=== PATIENT | male | born 1935 | race Two or more races ===

== ENCOUNTER 2019-07-04 00:45 | Inpatient (IN) | payer MEDICARE, MEDICAID ==
[~2019-07-04] VITALS: Ht 167.6 cm; Wt 83.7 kg
[2019-07-04 00:48] VITALS: BP 84/48
--- NOTE | 2019-07-04 00:48 | NUR ---
ED Nurse Note: Patient brought in by ambulance from [facility] with complaints of resppiratory distress. patient is on non rebrether upon arrival. RT at bedside.n
[2019-07-04] MEDS ORDERED: ASCORBIC ACID500 MG ORAL (00:57)
[2019-07-04] MEDS ORDERED: ZOFRAN4 M3 ORAL (01:03)
[2019-07-04] MEDS ORDERED: GERI-LANTA LIQ355 ML PO (01:03)
[2019-07-04] MEDS ORDERED: BISACODYL5 MG ORAL (01:03)
[2019-07-04] MEDS ORDERED: MILK OF MA400 MG/51 ORAL (01:03)
[2019-07-04] MEDS ORDERED: DUONEB 0.5-3(2.53 ML HHN (01:03)
[2019-07-04] MEDS ORDERED: ADULT WAL-100 MG/5 M ORAL (01:03)
--- NOTE | 2019-07-04 01:09 | Emergency Room Report ---
History of Present Illness General Chief Complaint: Dyspnea/Respdistress Source: Medical Record, EMS Present Illness HPI This is an 83-year-old male [facility]. Presents with chief complaint of respiratory distress. He has a past medical history of Parkinson, diabetes, respiratory failure, pneumonia, he has a feeding tube. intermediate called 911 because of respiratory distress. EMS said oxygenation of was in the 80 percentile on room air. Unable any other history from this patient. No reported fever. Patient does have a cough. Denies any other complaint. History is limited because he is nonverbal. History is through the jail note. Allergies: Coded Allergies: PENICILLINS (Verified Allergy, Unknown, 07/04/19) Patient History Past Medical History: see triage record, old chart reviewed, DM, pneumonia Past Surgical History: other Pertinent Family History: none Social History: Denies: smoking Immunizations: other Reviewed Nursing Documentation: PMH: Agreed; PSxH: Agreed Nursing Documentation-PMH Hx Hypertension: Yes Hx Diabetes: Yes - type 2 Review of Systems Respiratory: Reports: shortness of breath All Other Systems: limited - History limited because of his condition Physical Exam Vital Signs Date Time Temp Pulse Resp B/P (MAP) Pulse Ox O2 Delivery O2 Flow Rate FiO2 07/04/19 00:48 106 26 84/48 (60) 94 Non-Rebreather 15.0 Vitals with hypotension, hypoxia, fever Sp02 EP Interpretation: reviewed, abnormal General Appearance: moderate distress, lethargic, Chronically Ill Head: normocephalic, atraumatic Eyes: bilateral eye PERRL, bilateral eye EOMI ENT: dry mucus membranes Neck: other - Neck is stiff from degenerative changes Respiratory: chest non-tender, respiratory distress, decreased breath sounds, accessory muscle use, rales, rhonchi Cardiovascular #1: regular rate, rhythm, no murmur Gastrointestinal: normal bowel sounds, non tender, no mass, no organomegaly, no bruit, non-distended Musculoskeletal: other - Contracted Psychiatric: other Skin: no rash Procedures Critical Care Time Critical Care Time Critical care is mandated in this patient who presented with sepsis and respiratory distress. Patient require my urgent intervention to attenuate the risks of metabolic collapse which may lead to cardiovascular collapse and . Critical care time is 35 minutes excluding any reportable procedure. Critical care time included evaluation, multiple reevaluation, looking at old charts, interpreting laboratory and diagnostic data, discussing case with patient and family and consultants, and charting. Medical Decision Making Diagnostic Impression: Primary Impression: Sepsis Qualified Codes: A41.9 - Sepsis, unspecified organism; R65.20 - Severe sepsis without septic shock; J96.01 - Acute respiratory failure with hypoxia Additional Impressions: UTI (urinary tract infection) Qualified Codes: N30.00 - Acute cystitis without hematuria Respiratory failure with hypoxia Qualified Codes: J96.01 - Acute respiratory failure with hypoxia Anemia Qualified Codes: D64.9 - Anemia, unspecified CARA (acute kidney injury) Proteinuria Qualified Codes: R80.9 - Proteinuria, unspecified ER Course Patient came in with sepsis and source appear to be from his urine. He was hypoxic and has very rhonchorous respiration. He may have a pneumonia that has not "blossomed" because of his dehydration. Antibiotics given to cover for HCAP. Patient improved greatly with IV fluid and antibiotics. Will admit for further work-up. I contacted Dr. Woods for admission. EKG Diagnostic Results Rate: tachycardiac Rhythm: NSR ST Segments: other - NSST changes Rhythm Strip Diag. Results EP Interpretation: yes Rate: 100 Rhythm: NSR, no PVC's, no ectopy Chest X-Ray Diagnostic Results Chest X-Ray Diagnostic Results : Chest X-Ray Ordered: Yes # of Views/Limited/Complete: 1 View Indication: Shortness of Breath EP Interpretation: Yes Interpretation: no consolidation, no effusion, no pneumothorax, no acute cardiopulmonary disease Impression: No acute disease Electronically Signed by: Nasir Al MD Last Vital Signs Date Time Temp Pulse Resp B/P (MAP) Pulse Ox O2 Delivery O2 Flow Rate FiO2 07/04/19 00:48 106 26 84/48 (60) 94 Non-Rebreather 15.0 Status: improved Disposition: ADMITTED INPATIENT Condition: Serious Nasir Al MD Jul 04, 2019 01:09
[2019-07-04] MEDS ORDERED: Acetaminophen 650 MG SUPP RECTAL ONE (01:15)
[2019-07-04 01:30] LABS: APPEARANCE,URINE SLIGHTLY CLOUDY; BILIRUBIN, URINE NEGATIVE (NEGATIVE); GLUCOSE, URINE (UA) NEGATIVE (NEGATIVE); KETONES,URINE 1+ (NEGATIVE); LEUKOCYTE ESTERASE ,URINE 2+ (NEGATIVE); NITRITE,URINE NEGATIVE (NEGATIVE); PH,URINE 5 (4.5-8.0); PROTEIN,URINE 2+ (NEGATIVE); UROBILINOGEN,URINE NORMAL MG/DL (0.0-1.0)
[2019-07-04 01:30] LABS: HEMOGLOBIN 11.7 G/DL (14.2-18.0); MEAN CORPUSCULAR VOLUME 85 FL (80-99); PLATELET COUNT 235 K/UL (150-450); RED BLOOD COUNT 4.12 M/UL (4.70-6.10); RED CELL DISTRIBUTION WIDTH 13.8 % (11.6-14.8); WHITE BLOOD COUNT 10.6 K/UL (4.8-10.8)
[2019-07-04 01:32] LABS: COLOR,URINE YELLOW
[2019-07-04] MEDS ORDERED: Cefepime HCl 1 GM in D5W 55 ML IVPB ONE (01:45)
[2019-07-04 01:51] LABS: ALANINE AMINOTRANSFERASE 59 U/L (12-78); ALBUMIN 3.4 G/DL (3.4-5.0); ALBUMIN/GLOBULIN RATIO 0.8 (1.0-2.7); ALKALINE PHOSPHATASE 84 U/L (46-116); ANION GAP 10 mmol/L (5-15); ASPARTATE AMINO TRANSFERASE 46 U/L (15-37); BILIRUBIN,TOTAL 0.4 MG/DL (0.2-1.0); BLOOD UREA NITROGEN 54 mg/dL (7-18); CALCIUM 8.2 MG/DL (8.5-10.1); CARBON DIOXIDE 26 MMOL/L (21-32); CHLORIDE 108 MMOL/L (98-107); CKMB 0.6 NG/ML (0.0-3.6); CREATINE KINASE 160 U/L (26-308); CREATININE 1.6 MG/DL (0.55-1.30); POTASSIUM 5.9 MMOL/L (3.5-5.1); SODIUM 144 MMOL/L (136-145)
--- NOTE | 2019-07-04 02:00 | NUR ---
ED Nurse Note: Patient tolerated non rebreather mask, IV start at right forearm and left EJ, Blood drawn by ERMD at femoral site. Patient tolerated nixon placement. Flu swabs, nasal and rectal swabs collected and sent to lab. Patient is satting at 100% on no rebreather. will continue to monitor.
[2019-07-04 02:39] LABS: INR 1.1 (0.9-1.1)
--- NOTE | 2019-07-04 02:43 | NUR ---
ED Nurse Note: Called and rendered report to Anastasiya HERMAN.
--- NOTE | 2019-07-04 03:25 | NUR ---
ED Nurse Note: confirmed with EVS that bed is clean. patient transported to floor b sewing techniques demonstrator and RN.
--- NOTE | 2019-07-04 03:50 | NUR ---
NURSE NOTES: received pt from JUVE Diaz RN., pt is awake and AOx 3. pt is in non-breather mask. pt states no pain at this moment. pt threw up x1 brown color, and BM large x2. pt is on Juan Cath intact, clean, and patent, draining well with gravity. IV site Right FA 22G and Left EJ 20G intact, clean, and patent. pt has Gtube, Gtube site is intact clean, and patent as well. call light within reach. VS: BP128/82 Temp 97.9 O2sat 91% with non breather mask, RR 36 HR 95 personnel monitor is on. bed at the lowest position, alarmed, and locked. will continue to monitor pt with plan of care.
--- NOTE | 2019-07-04 04:09 | NUR ---
NURSE NOTES: left voice mail to Dr. Woods regarding obtaining the admission order. will wait for call back.
[2019-07-04] MEDS ORDERED: Albuterol/Ipratropium 3ml neb HHN PRN (04:15)
--- NOTE | 2019-07-04 04:39 | NUR ---
NURSE NOTES: left 2nd voice mail to Dr. Woods regarding admission order. will wait for call back.
[2019-07-04 05:49] VITALS: BP 128/70
--- NOTE | 2019-07-04 06:30 | NUR ---
NURSE NOTES: Dr. Woods aware pt had brown vomitting x2. no new order at this moment.
--- NOTE | 2019-07-04 07:30 | NUR ---
HAND-OFF: Report given to Loreta HERMAN.
--- NOTE | 2019-07-04 07:30 | NUR ---
NURSE NOTES: unable to upload sacral and left heel picture due to IT problem at this moment. saved picture in camera. endorsed to morning nurse.
--- NOTE | 2019-07-04 07:31 | NUR ---
NURSE NOTES: Received report from Nani Gray RN. Observed patient in bed, asleep, opens eyes spontaneously. On Venturi Mask, no respiratory distress noted. RT Ashley notified to place patient in BiPAP STAT as ordered. Left EJ IV intact and patent. Juan catheter noted, draining to gravity. Safety precautions in place, bed locked, alarmed and in lowest position, side rails up x3, and call light left within reach. at bedside, instructed to call for assistance, verbalized understanding. Will follow up on admitting orders and will continue plan of care.
--- NOTE | 2019-07-04 07:45 | NUR ---
NURSE NOTES: RT at bedside for BiPAP placement. Will continue to monitor patient.
[2019-07-04 08:00] VITALS: BP 113/61
[2019-07-04] MEDS ORDERED: Vancomycin 1.5gm/NS Premix q24h IVPB SCH (10:00)
--- NOTE | 2019-07-04 10:30 | NUR ---
NURSE NOTES: Wound photos taken with wound care nurse per protocol. Attempted to upload, unable. Charge nurse and IT notified and made aware.
--- NOTE | 2019-07-04 10:36 | Diagnostic Imaging Report ---
Indication: Shortness of breath Technique: One view of the chest Comparison: none Findings: There is some atelectasis at the right lung base and in the right perihilar region. There is minimal bronchial wall thickening noted. The lungs and pleural spaces are otherwise clear. Heart size is upper limits normal. The aorta is calcified Impression: No acute process
--- NOTE | 2019-07-04 10:37 | NUR ---
CASE MANAGEMENT:INITIAL REVIEW 83 YR OLD MALE BIBA FROM [facility] CC;SHORTNESS OF BREATH. RESPIRATORY DISTRESS SI;SEPSIS. RESP FAILURE W/HYPOXIA. PROTEINURIA. UTI. CARA. 101.8 106 26 84/48 92% BiPAP FIO2 @ 50% K+ 5.9 CL 108 BUN 54 CR 1.6 CA 8.2 AST 46 UA+ - PROTIEN, KETONES, BLOOD. LEUKOCYTE, RBC, WBC. BACTERIA CXR - no consolidation, no effusion, no pneumothorax, no acute cardiopulmonary disease IS;IVF NS BOLUS X1 ACETAMINOPHEN SUPP RECTAL X1 CEFEPIME IV X1 LEVAQUIN IV X1 ADMITTED TO SDU SDU STATUS DCP; FROM [facility]
--- NOTE | 2019-07-04 11:11 | NUR ---
RD ASSESSMENT & RECOMMENDATIONS SEE CARE ACTIVITY FOR COMPLETE ASSESSMENT DAILY ESTIMATED NEEDS: Needs based on Pulmonary, wound/ 67.7kg 25-30 kcals/kg 1895-8078 total kcals 1.25-1.5 g protein/kg 85-102 g total protein 25-30 mL/kg total fluid mLs NUTRITION DIAGNOSIS: * Increased kcal/prot needs R/T wound healing as evidenced by pt admitted w/ sacral and Lt heel wounds, eval pending. 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 CURRENT DIET:NPO PO DIET RECOMMENDATIONS: SURFACE TO AIR WEAPONS OFFICER EVAL PRIOR TO INITIATING DIET -> CCHO MED, LOW NA ENTERAL NUTRITION RECOMMENDATIONS: Glucerna 1.2 @ 60ml/hr x 24 hrs to provide 1440ml, 1728kcal, 86g prot, 1159ml free water * If pt not safe for oral diet and when medically appropriate to feed, initiate GT feeds. * Initiate Glucerna 1.2 @ 20ml/hr x 6 hrs, advance 10ml q 4-6 hrs as tolerated to goal rate. * HOB over 30 degrees * Without IVF, 150ml q 6 hrs ADDITIONAL RECOMMENDATIONS: * Per SNF: HT=67" RM=316dku (As of Jun 10, 2019) * TF rec as above if GT feeds indicated * SURFACE TO AIR WEAPONS OFFICER evaluation prior to PO initiation * Monitor K closely, need for K restriction (either in TF or oral diet) * NISS w/ feeding: h/o DM, elev BGs * Wound healing: once no longer NPO-> add MVI x 1, Vit C 250mg QD -> Dipak BID w/ diet or TF order
--- NOTE | 2019-07-04 11:20 | Diagnostic Imaging Report ---
Indication: Shortness of breath Technique: One view of the chest Comparison: 07/04/2019 Findings: The heart is upper limits normal in size. The aorta is tortuous and calcified. No definite acute infiltrates, effusions, or congestion. Minimal right basilar and perihilar atelectasis persists Impression: No acute process
[2019-07-04 12:00] VITALS: BP 113/61
--- NOTE | 2019-07-04 12:10 | NUR ---
NURSE NOTES: Dr Lopez present at the unit, ordered STAT VQ scan for patient. Spoke with Timo from nuclear med, states he will order isotope and awaiting for arrival at [address] Lopez notified and made aware; Dr Lopez also ordered patient to be off BiPAP, notified RT Ashley. Will continue to monitor.
--- NOTE | 2019-07-04 12:13 | Consultation ---
History of Present Illness General Date patient seen: Jul 04, 2019 Chief Complaint: Dyspnea/Respdistress Present Illness HPI 83 year old male with hx of DM, Gtube, Parkinson, HTN, bed bound, long-term resident was taken by paramedics to [facility] with CC of acute onset of shortness of breath and hypoxemia. He had loud rhonchi. His CXR was negative for acute infiltrate. He needed to be put on BIPAP to maintain oxygenation. He is transferred to [facility] for further treatment. Allergies: Coded Allergies: PENICILLINS (Verified Allergy, Unknown, 07/04/19) Medication History Scheduled Ascorbic Acid* (Ascorbic Acid*), 500 MG ORAL DAILY, (Reported) Bisacodyl* (Dulcolax*), 10 MG ORAL ONCE, (Reported) Guaifenesin* (Adult Wal-Tussin*), 10 ML ORAL Q6HR, (Reported) Ipratropium/Albuterol Sulfate (DuoNeb 0.5-3(2.5)mg/3ml), 3 ML HHN EVERY 6 HOURS, (Reported) Magnesium Hydroxide* (Milk Of Magnesia*), 30 ML ORAL DAILY, (Reported) Scheduled PRN Ondansetron* (Zofran*), 4 MG ORAL Q8HR PRN for Nausea & Vomiting, (Reported) Miscellaneous Medications Mag Hydrox/Al Hydrox/Simeth (Yuli-Lanta Liquid), 15 ML PO, (Reported) Patient History Healthcare decision maker Resuscitation status Full Code Advanced Directive on File Past Medical/Surgical History Past Medical/Surgical History: (1) Hypertensive heart disease (2) DVT (deep venous thrombosis) (3) BPH (benign prostatic hyperplasia) (4) Diabetes mellitus (5) Parkinson disease (6) Feeding by G-tube Review of Systems All Other Systems: negative except mentioned in HPI Physical Exam General Appearance: cachetic, thin Lines, tubes and drains: peripheral HEENT: normocephalic, atraumatic Neck: non-tender, normal alignment Respiratory/Chest: chest wall non-tender, lungs clear Breasts: no masses Cardiovascular/Chest: normal peripheral pulses, normal rate Abdomen: normal bowel sounds, non tender, hyperactive bowel sounds Genitourinary/Rectal: normal genital exam Extremities: normal range of motion Skin Exam: normal pigmentation Last 24 Hour Vital Signs Date Time Temp Pulse Resp B/P (MAP) Pulse Ox O2 Delivery O2 Flow Rate FiO2 07/04/19 10:32 93 32 94 Facial 50 07/04/19 08:47 92 35 96 Facial 50 07/04/19 08:00 Bi-pap 07/04/19 07:45 88 39 92 Facial 50 07/04/19 07:45 88 21 92 Bi-Pap 50 07/04/19 06:53 81 07/04/19 05:49 97.9 95 20 128/70 (89) 96 07/04/19 04:19 Non-Rebreather 07/04/19 03:30 99.0 106 26 84/48 94 Non-Rebreather 15.0 07/04/19 01:47 99.0 07/04/19 00:48 101.8 106 26 84/48 94 Non-Rebreather 15.0 07/04/19 00:48 106 26 Non-Rebreather 15.0 07/04/19 00:48 106 26 84/48 (60) 94 Non-Rebreather 15.0 Intake and Output 07/03/19 07/04/19 19:00 07:00 Intake Total 1000 ml Output Total 200 ml Balance 800 ml Intake Oral 0 ml IV Total 1000 ml Output Urine Total 200 ml # Bowel Movements 4 Laboratory Tests Test 07/04/19 00:55 07/04/19 01:25 07/04/19 02:18 07/04/19 05:17 White Blood Count 10.6 K/UL (4.8-10.8) Red Blood Count 4.12 M/UL (4.70-6.10) L Hemoglobin 11.7 G/DL (14.2-18.0) L Hematocrit 35.0 % (42.0-52.0) L Mean Corpuscular Volume 85 FL (80-99) Mean Corpuscular Hemoglobin 28.4 PG (27.0-31.0) Mean Corpuscular Hemoglobin Concent 33.4 G/DL (32.0-36.0) Red Cell Distribution Width 13.8 % (11.6-14.8) Platelet Count 235 K/UL (150-450) Mean Platelet Volume 6.7 FL (6.5-10.1) Neutrophils (%) (Auto) % (45.0-75.0) Lymphocytes (%) (Auto) % (20.0-45.0) Monocytes (%) (Auto) % (1.0-10.0) Eosinophils (%) (Auto) % (0.0-3.0) Basophils (%) (Auto) % (0.0-2.0) Sodium Level 144 MMOL/L (136-145) Potassium Level 5.9 MMOL/L (3.5-5.1) H Chloride Level 108 MMOL/L (98-107) H Carbon Dioxide Level 26 MMOL/L (21-32) Anion Gap 10 mmol/L (5-15) Blood Urea Nitrogen 54 mg/dL (7-18) H Creatinine 1.6 MG/DL (0.55-1.30) H Estimat Glomerular Filtration Rate mL/min (>60) Glucose Level 178 MG/DL (74-106) H Lactic Acid Level 1.40 mmol/L (0.4-2.0) Calcium Level 8.2 MG/DL (8.5-10.1) L Total Bilirubin 0.4 MG/DL (0.2-1.0) Aspartate Amino Transf (AST/SGOT) 46 U/L (15-37) H Alanine Aminotransferase (ALT/SGPT) 59 U/L (12-78) Alkaline Phosphatase 84 U/L (46-116) Total Creatine Kinase 160 U/L (26-308) Creatine Kinase MB 0.6 NG/ML (0.0-3.6) Creatine Kinase MB Relative Index 0.3 Troponin I 0.003 ng/mL (0.000-0.056) Total Protein 7.6 G/DL (6.4-8.2) Albumin 3.4 G/DL (3.4-5.0) Globulin 4.2 g/dL Albumin/Globulin Ratio 0.8 (1.0-2.7) L Urine Color Yellow Urine Appearance Slightly cloudy Urine pH 5 (4.5-8.0) Urine Specific [place] 1.020 (1.005-1.035) Urine Protein 2+ (NEGATIVE) H Urine Glucose (UA) Negative (NEGATIVE) Urine Ketones 1+ (NEGATIVE) H Urine Blood 5+ (NEGATIVE) H Urine Nitrite Negative (NEGATIVE) Urine Bilirubin Negative (NEGATIVE) Urine Urobilinogen Normal MG/DL (0.0-1.0) Urine Leukocyte Esterase 2+ (NEGATIVE) H Urine RBC Tntc /HPF (0 - 0) H Urine WBC 5-10 /HPF (0 - 0) H Urine Squamous Epithelial Cells Few /LPF (NONE/OCC) Urine Bacteria Moderate /HPF (NONE) H Prothrombin Time 11.4 SEC (9.30-11.50) Prothromb Time International Ratio 1.1 (0.9-1.1) Activated Partial Thromboplast Time 24 SEC (23-33) Arterial Blood pH 7.239 (7.350-7.450) Arterial Blood Partial Pressure CO2 48.1 mmHg (35.0-45.0) H Arterial Blood Partial Pressure O2 305.9 mmHg (75.0-100.0) H Arterial Blood HCO3 20.1 mmol/L (22.0-26.0) L Arterial Blood Oxygen Saturation 99.2 % (95-100) Arterial Blood Base Excess -7.2 (-2-2) L Phan Test Positive Test 07/04/19 08:50 Arterial Blood pH 7.313 (7.350-7.450) Arterial Blood Partial Pressure CO2 41.1 mmHg (35.0-45.0) Arterial Blood Partial Pressure O2 141.1 mmHg (75.0-100.0) H Arterial Blood HCO3 20.4 mmol/L (22.0-26.0) L Arterial Blood Oxygen Saturation 98.3 % (95-100) Arterial Blood Base Excess -5.5 (-2-2) L Phan Test Positive Microbiology Date/Time Source Procedure Growth Status 07/04/19 01:10 Nasal Nares - Final Complete 07/04/19 01:10 Nasal Nares - Final Complete Height (Feet): 5 Height (Inches): 8.00 Weight (Pounds): 158 Medications Current Medications Medications (Trade) Dose Ordered Sig/Genoveva Route PRN Reason Start Time Stop Time Status Last Admin Dose Admin Acetaminophen (Tylenol) 650 mg Q6H PRN ORAL Mild Pain/Temp > 100.5 07/04/19 07:30 08/03/19 07:29 Albuterol/ Ipratropium (Albuterol/ Ipratropium) 3 ml Q4H PRN HHN Shortness of Breath 07/04/19 04:15 07/09/19 04:14 Cefepime HCl 1 gm/ Dextrose 55 ml @ 110 mls/hr Q24H IVPB 07/04/19 21:00 07/11/19 20:59 Heparin Sodium (Porcine) (Heparin 5000 units/ml) 5,000 units EVERY 8 HOURS SUBQ 07/04/19 14:00 08/03/19 13:59 Metronidazole 100 ml @ 100 mls/hr Q12HR IVPB 07/04/19 09:00 07/11/19 08:59 07/04/19 09:15 Sodium Chloride 1,000 ml @ 75 mls/hr [id number] IV 07/04/19 08:00 08/03/19 07:59 07/04/19 07:50 Vancomycin HCl (Vanco rx to dose) 1 ea DAILY PRN MISC Per rx protocol 07/04/19 09:00 08/03/19 08:59 Assessment/Plan Problem List: (1) Respiratory failure with hypoxia ICD Codes: J96.91 - Respiratory failure, unspecified with hypoxia SNOMED: 06366169173263818 Qualifiers: Qualified Codes: J96.01 - Acute respiratory failure with hypoxia (2) CARA (acute kidney injury) ICD Codes: N17.9 - Acute kidney failure, unspecified SNOMED: 04415283, 5508896 (3) Sepsis ICD Codes: A41.9 - Sepsis, unspecified organism SNOMED: 27509071 Qualifiers: Qualified Codes: A41.9 - Sepsis, unspecified organism; R65.20 - Severe sepsis without septic shock; J96.01 - Acute respiratory failure with hypoxia (4) Anemia ICD Codes: D64.9 - Anemia, unspecified SNOMED: 394488652 Qualifiers: Qualified Codes: D64.9 - Anemia, unspecified (5) Hypertensive heart disease ICD Codes: I11.9 - Hypertensive heart disease without heart failure SNOMED: 36196800 (6) BPH (benign prostatic hyperplasia) ICD Codes: N40.0 - Benign prostatic hyperplasia without lower urinary tract symptoms SNOMED: 917905256 (7) DVT (deep venous thrombosis) ICD Codes: I82.409 - Acute embolism and thrombosis of unspecified deep veins of unspecified lower extremity SNOMED: 228790590 (8) Parkinson disease ICD Codes: G20 - Parkinson's disease SNOMED: 26132719 (9) Diabetes mellitus ICD Codes: E11.9 - Type 2 diabetes mellitus without complications SNOMED: 49397110 (10) Feeding by G-tube ICD Codes: Z93.1 - Gastrostomy status SNOMED: 847276604, 103890381, 620848190 Assessment/Plan: titrate bipap, titrate fio2 to sat of 92% V/q Scan to rule out PE, since pt was in respiratory failure and cxr was negative. pt has azotemia and can't have contrast now. hebert culture, including sputum, ID evaluation. iv abx Gtube site care diabetic feeding, sliding scale anemia w/u and renal w/u including renal US dvt prophylaxis pt has a hx of dvt, will get doppler of legs to see if they still exist. pt with advanced age and multiple underlying medical problems would greatly benefit from comfort and end of life care. Kathryn Lopez MD Jul 04, 2019 12:13
[2019-07-04] MEDS ORDERED: Promethazine/Codeine 5ml UD ORAL PRN (12:15)
--- NOTE | 2019-07-04 12:30 | NUR ---
NURSE NOTES: Patient was placed on Venturi Mask 12L, FiO2 50%. Patient is saturating 100%, no distress noted at this time. Will continue to monitor.
[2019-07-04 13:03] LABS: HEMATOCRIT 35.5 % (42.0-52.0); HEMOGLOBIN 11.2 G/DL (14.2-18.0); MEAN CORPUSCULAR VOLUME 88 FL (80-99); PLATELET COUNT 191 K/UL (150-450); RED BLOOD COUNT 4.04 M/UL (4.70-6.10); RED CELL DISTRIBUTION WIDTH 14.4 % (11.6-14.8); WHITE BLOOD COUNT 8.2 K/UL (4.8-10.8)
[2019-07-04 13:26] LABS: ALANINE AMINOTRANSFERASE 46 U/L (12-78); ALBUMIN 2.9 G/DL (3.4-5.0); ALBUMIN/GLOBULIN RATIO 0.7 (1.0-2.7); ALKALINE PHOSPHATASE 65 U/L (46-116); ANION GAP 9 mmol/L (5-15); ASPARTATE AMINO TRANSFERASE 20 U/L (15-37); BILIRUBIN,TOTAL 0.3 MG/DL (0.2-1.0); BLOOD UREA NITROGEN 49 mg/dL (7-18); CALCIUM 7.5 MG/DL (8.5-10.1); CARBON DIOXIDE 23 MMOL/L (21-32); CHLORIDE 118 MMOL/L (98-107); CREATINE KINASE 69 U/L (26-308); CREATININE 1.3 MG/DL (0.55-1.30); POTASSIUM 5.1 MMOL/L (3.5-5.1); SODIUM 150 MMOL/L (136-145)
--- NOTE | 2019-07-04 13:33 | NUR ---
RADIOLOGY DEPT., CHEST X-RAY DONE.-P.DYE
--- NOTE | 2019-07-04 14:13 | Consultation ---
History of Present Illness General Date patient seen: Jul 04, 2019 Chief Complaint: Dyspnea/Respdistress Present Illness HPI 83 y/o M with hx of Dm2, dysphagia s/p GT, PNA, parkinson disease, HTN, bed bound, NH resident presented to ED On 07/04 with acute SOB,cough and hypoxia (80 % at RA) requiring Bipap. No reported fever Allergies: Coded Allergies: PENICILLINS (Verified Allergy, Unknown, 07/04/19) Medication History Scheduled Ascorbic Acid* (Ascorbic Acid*), 500 MG ORAL DAILY, (Reported) Bisacodyl* (Dulcolax*), 10 MG ORAL ONCE, (Reported) Guaifenesin* (Adult Wal-Tussin*), 10 ML ORAL Q6HR, (Reported) Ipratropium/Albuterol Sulfate (DuoNeb 0.5-3(2.5)mg/3ml), 3 ML HHN EVERY 6 HOURS, (Reported) Magnesium Hydroxide* (Milk Of Magnesia*), 30 ML ORAL DAILY, (Reported) Scheduled PRN Ondansetron* (Zofran*), 4 MG ORAL Q8HR PRN for Nausea & Vomiting, (Reported) Miscellaneous Medications Mag Hydrox/Al Hydrox/Simeth (Yuli-Lanta Liquid), 15 ML PO, (Reported) Patient History Healthcare decision maker Resuscitation status Full Code Advanced Directive on File Patient History Narrative Pmhx: as above Shx: Denies: smoking Fhx: non contributory Physical Exam Physical Exam Narrative General Appearance: cachetic, thin Lines, tubes and drains: peripheral HEENT: normocephalic, atraumatic Neck: non-tender, normal alignment Respiratory/Chest: chest wall non-tender, lungs clear Breasts: no masses Cardiovascular/Chest: normal peripheral pulses, normal rate Abdomen: normal bowel sounds, non tender, hyperactive bowel sounds Genitourinary/Rectal: normal genital exam Extremities: normal range of motion Skin Exam: normal pigmentation Last 24 Hour Vital Signs Date Time Temp Pulse Resp B/P (MAP) Pulse Ox O2 Delivery O2 Flow Rate FiO2 07/04/19 12:00 40 07/04/19 12:00 Bi-pap 07/04/19 12:00 99.3 60 21 113/61 (78) 99 07/04/19 10:32 93 32 94 Facial 50 07/04/19 08:47 92 35 96 Facial 50 07/04/19 08:00 Bi-pap 07/04/19 08:00 99.4 82 12 113/61 (78) 96 07/04/19 08:00 40 07/04/19 07:45 88 39 92 Facial 50 07/04/19 07:45 88 21 92 Bi-Pap 50 07/04/19 06:53 81 07/04/19 05:49 97.9 95 20 128/70 (89) 96 07/04/19 04:19 Non-Rebreather 07/04/19 03:30 99.0 106 26 84/48 94 Non-Rebreather 15.0 07/04/19 01:47 99.0 07/04/19 00:48 101.8 106 26 84/48 94 Non-Rebreather 15.0 07/04/19 00:48 106 26 Non-Rebreather 15.0 07/04/19 00:48 106 26 84/48 (60) 94 Non-Rebreather 15.0 Intake and Output 07/03/19 07/04/19 19:00 07:00 Intake Total 1000 ml Output Total 200 ml Balance 800 ml Intake Oral 0 ml IV Total 1000 ml Output Urine Total 200 ml # Bowel Movements 4 Laboratory Tests Test 07/04/19 00:55 07/04/19 01:25 07/04/19 02:18 07/04/19 05:17 White Blood Count 10.6 K/UL (4.8-10.8) Red Blood Count 4.12 M/UL (4.70-6.10) L Hemoglobin 11.7 G/DL (14.2-18.0) L Hematocrit 35.0 % (42.0-52.0) L Mean Corpuscular Volume 85 FL (80-99) Mean Corpuscular Hemoglobin 28.4 PG (27.0-31.0) Mean Corpuscular Hemoglobin Concent 33.4 G/DL (32.0-36.0) Red Cell Distribution Width 13.8 % (11.6-14.8) Platelet Count 235 K/UL (150-450) Mean Platelet Volume 6.7 FL (6.5-10.1) Neutrophils (%) (Auto) % (45.0-75.0) Lymphocytes (%) (Auto) % (20.0-45.0) Monocytes (%) (Auto) % (1.0-10.0) Eosinophils (%) (Auto) % (0.0-3.0) Basophils (%) (Auto) % (0.0-2.0) Sodium Level 144 MMOL/L (136-145) Potassium Level 5.9 MMOL/L (3.5-5.1) H Chloride Level 108 MMOL/L (98-107) H Carbon Dioxide Level 26 MMOL/L (21-32) Anion Gap 10 mmol/L (5-15) Blood Urea Nitrogen 54 mg/dL (7-18) H Creatinine 1.6 MG/DL (0.55-1.30) H Estimat Glomerular Filtration Rate mL/min (>60) Glucose Level 178 MG/DL (74-106) H Lactic Acid Level 1.40 mmol/L (0.4-2.0) Calcium Level 8.2 MG/DL (8.5-10.1) L Total Bilirubin 0.4 MG/DL (0.2-1.0) Aspartate Amino Transf (AST/SGOT) 46 U/L (15-37) H Alanine Aminotransferase (ALT/SGPT) 59 U/L (12-78) Alkaline Phosphatase 84 U/L (46-116) Total Creatine Kinase 160 U/L (26-308) Creatine Kinase MB 0.6 NG/ML (0.0-3.6) Creatine Kinase MB Relative Index 0.3 Troponin I 0.003 ng/mL (0.000-0.056) Total Protein 7.6 G/DL (6.4-8.2) Albumin 3.4 G/DL (3.4-5.0) Globulin 4.2 g/dL Albumin/Globulin Ratio 0.8 (1.0-2.7) L Urine Color Yellow Urine Appearance Slightly cloudy Urine pH 5 (4.5-8.0) Urine Specific [place] 1.020 (1.005-1.035) Urine Protein 2+ (NEGATIVE) H Urine Glucose (UA) Negative (NEGATIVE) Urine Ketones 1+ (NEGATIVE) H Urine Blood 5+ (NEGATIVE) H Urine Nitrite Negative (NEGATIVE) Urine Bilirubin Negative (NEGATIVE) Urine Urobilinogen Normal MG/DL (0.0-1.0) Urine Leukocyte Esterase 2+ (NEGATIVE) H Urine RBC Tntc /HPF (0 - 0) H Urine WBC 5-10 /HPF (0 - 0) H Urine Squamous Epithelial Cells Few /LPF (NONE/OCC) Urine Bacteria Moderate /HPF (NONE) H Prothrombin Time 11.4 SEC (9.30-11.50) Prothromb Time International Ratio 1.1 (0.9-1.1) Activated Partial Thromboplast Time 24 SEC (23-33) Arterial Blood pH 7.239 (7.350-7.450) Arterial Blood Partial Pressure CO2 48.1 mmHg (35.0-45.0) H Arterial Blood Partial Pressure O2 305.9 mmHg (75.0-100.0) H Arterial Blood HCO3 20.1 mmol/L (22.0-26.0) L Arterial Blood Oxygen Saturation 99.2 % (95-100) Arterial Blood Base Excess -7.2 (-2-2) L Phan Test Positive Test 07/04/19 08:50 07/04/19 12:45 Arterial Blood pH 7.313 (7.350-7.450) Arterial Blood Partial Pressure CO2 41.1 mmHg (35.0-45.0) Arterial Blood Partial Pressure O2 141.1 mmHg (75.0-100.0) H Arterial Blood HCO3 20.4 mmol/L (22.0-26.0) L Arterial Blood Oxygen Saturation 98.3 % (95-100) Arterial Blood Base Excess -5.5 (-2-2) L Phan Test Positive White Blood Count 8.2 K/UL (4.8-10.8) Red Blood Count 4.04 M/UL (4.70-6.10) L Hemoglobin 11.2 G/DL (14.2-18.0) L Hematocrit 35.5 % (42.0-52.0) L Mean Corpuscular Volume 88 FL (80-99) Mean Corpuscular Hemoglobin 27.8 PG (27.0-31.0) Mean Corpuscular Hemoglobin Concent 31.6 G/DL (32.0-36.0) L Red Cell Distribution Width 14.4 % (11.6-14.8) Platelet Count 191 K/UL (150-450) Mean Platelet Volume 6.8 FL (6.5-10.1) Neutrophils (%) (Auto) % (45.0-75.0) Lymphocytes (%) (Auto) % (20.0-45.0) Monocytes (%) (Auto) % (1.0-10.0) Eosinophils (%) (Auto) % (0.0-3.0) Basophils (%) (Auto) % (0.0-2.0) Differential Total Cells Counted 100 Neutrophils % (Manual) 88 % (45-75) H Lymphocytes % (Manual) 6 % (20-45) L Monocytes % (Manual) 6 % (1-10) Eosinophils % (Manual) 0 % (0-3) Basophils % (Manual) 0 % (0-2) Band Neutrophils 0 % (0-8) Platelet Estimate Adequate Platelet Morphology Normal Red Blood Cell Morphology Normal Sodium Level 150 MMOL/L (136-145) H Potassium Level 5.1 MMOL/L (3.5-5.1) Chloride Level 118 MMOL/L (98-107) H Carbon Dioxide Level 23 MMOL/L (21-32) Anion Gap 9 mmol/L (5-15) Blood Urea Nitrogen 49 mg/dL (7-18) H Creatinine 1.3 MG/DL (0.55-1.30) Estimat Glomerular Filtration Rate mL/min (>60) Glucose Level 118 MG/DL (74-106) H Uric Acid 7.0 MG/DL (2.6-7.2) Calcium Level 7.5 MG/DL (8.5-10.1) L Total Bilirubin 0.3 MG/DL (0.2-1.0) Aspartate Amino Transf (AST/SGOT) 20 U/L (15-37) Alanine Aminotransferase (ALT/SGPT) 46 U/L (12-78) Alkaline Phosphatase 65 U/L (46-116) Total Creatine Kinase 69 U/L (26-308) Total Protein 7.1 G/DL (6.4-8.2) Albumin 2.9 G/DL (3.4-5.0) L Globulin 4.2 g/dL Albumin/Globulin Ratio 0.7 (1.0-2.7) L Microbiology Date/Time Source Procedure Growth Status 07/04/19 01:10 Nasal Nares - Final Complete 07/04/19 01:10 Nasal Nares - Final Complete Height (Feet): 5 Height (Inches): 8.00 Weight (Pounds): 158 Medications Current Medications Medications (Trade) Dose Ordered Sig/Genoveva Route PRN Reason Start Time Stop Time Status Last Admin Dose Admin Acetaminophen (Tylenol) 650 mg Q6H PRN ORAL Mild Pain/Temp > 100.5 07/04/19 07:30 08/03/19 07:29 Albuterol/ Ipratropium (Albuterol/ Ipratropium) 3 ml Q4H PRN HHN Shortness of Breath 07/04/19 04:15 07/09/19 04:14 Cefepime HCl 1 gm/ Dextrose 55 ml @ 110 mls/hr Q24H IVPB 07/04/19 21:00 07/11/19 20:59 Heparin Sodium (Porcine) (Heparin 5000 units/ml) 5,000 units EVERY 8 HOURS SUBQ 07/04/19 14:00 08/03/19 13:59 Metronidazole 100 ml @ 100 mls/hr Q12HR IVPB 07/04/19 09:00 07/11/19 08:59 07/04/19 09:15 Promethazine HCl/ Codeine (Phenergan with Codeine) 5 ml Q4H PRN ORAL For Cough 07/04/19 12:15 08/03/19 12:14 Sodium Chloride 1,000 ml @ 150 mls/hr Q6H40M IV 07/04/19 12:11 08/03/19 12:10 07/04/19 12:36 Vancomycin HCl (Vanco rx to dose) 1 ea DAILY PRN MISC Per rx protocol 07/04/19 09:00 08/03/19 08:59 Assessment/Plan Assessment/Plan: Abx: IV Vancomycin 07/04- Cefepime 07/04- Levaquin x1 07/04 Assessment: Sepsis UTI Acute hypoxic respiratory failure ?Early pneumonia -u/a wbc 5-10, nit neg, leuk +2; ucx p -Bcx p -sp cx p -CXR: No acute process -influenza sc neg Fever No leukocytosis CARA, improving Dm2 dysphagia s/p GT hx of PNA parkinson disease HTN bed bound NH resident Plan: -Continue empiric IV Vancomycin and Cefepime #1 pending cx -f/u cx -Monitor CBC/CMP, temperatures -aspiration precautions -GT care Thank you for this consultation. Will continue to follow along with you. Discussed with Mirian Bates M.D. Jul 04, 2019 14:13
--- NOTE | 2019-07-04 15:27 | NUR ---
NM Lung V/Q Scan complete.
[2019-07-04] MEDS: Heparin 5000 units/ml inj SUBQ SCH ×2 (15:30→23:12)
--- NOTE | 2019-07-04 15:52 | Diagnostic Imaging Report ---
Indications: Shortness of breath Technique: IV administration 5 mCi 99m technetium macroaggregated albumin. Images obtained over the lungs in multiple projections. Previously, patient inhaled 40 mCi aerosolized 99M technetium DTPA. Images obtained over the lungs in multiple projections Comparison: Reference made to chest radiograph 07/04/2019 Findings: Aerosol images demonstrate heterogeneous aerosol tracer distribution throughout both lungs. Perfusion images are also heterogeneous, demonstrates an extent as the aerosol images and there are no areas of aerosol perfusion mismatch. Impression: Findings are deemed low probability for pulmonary embolus
[2019-07-04 16:00] VITALS: BP 131/86
--- NOTE | 2019-07-04 16:41 | NUR ---
NURSE NOTES:WOUND CARE NOTES:Pt presented on admission with Resolving Full thickness pressure injury(L)3.6cm x (W)1.5cm. Base of wound has 25% slough ,75% pink granulation. Borders are macerated. Hyperpigmentation periwound.No odor or exudate noted. Elongated red welt noted to L hip (L) 8cm. Both heels are boggy with non-blanching erythema. No other skin concerns noted. Tx.Plan: Cleanse Sacral wound with Saline. Apply Therahoney. Apply Moisture Barrier Paste periwound. Cover with Optifoam drsg. Change every 3 days and prn. Apply Cavilon Skin Barrier to L hip. Cover with Optifoam drsg. Change every 7 days and prn. Apply Cavilon Skin Barrier to both heels. Cover each heel with Optifoam drsg. Change every 7 days and prn. Reposition at least every 2hours or as tolerated. Off-load heels with pillow.
[2019-07-04 17:22] LABS: APPEARANCE,URINE VERY CLOUDY; BILIRUBIN, URINE NEGATIVE (NEGATIVE); COLOR,URINE PALE YELLOW; GLUCOSE, URINE (UA) NEGATIVE (NEGATIVE); KETONES,URINE NEGATIVE (NEGATIVE); LEUKOCYTE ESTERASE ,URINE 1+ (NEGATIVE); NITRITE,URINE NEGATIVE (NEGATIVE); PH,URINE 5 (4.5-8.0); PROTEIN,URINE 2+ (NEGATIVE); UROBILINOGEN,URINE NORMAL MG/DL (0.0-1.0)
--- NOTE | 2019-07-04 18:10 | History & Physical ---
History and Physical History & Physicial Dictated for Int Med-Dr Woods no. [id number]. Shukri Glover MD Jul 04, 2019 18:10
--- NOTE | 2019-07-04 19:15 | NUR ---
HAND-OFF: Report given to Buffy Puente RN. Endorsed plan of care. Patient in stable condition.
--- NOTE | 2019-07-04 19:20 | NUR ---
NURSE NOTES: Received report from CLIFF RN using SBAR. Patient is awake.oriented to person and place. on venturi mask 12 L with no respiratory distress noted. o2 saturation is 95-99%. VS stable. Afebrile. SR on monitor. Denies any pain at this time. Juan cath in place with dark kristen urine draining well. LEJ IV intact with 1/2 NS at 150cc/hr running.patient is congestive and RT performed oral deep suctions .oral care done.will continue to monitor.
[2019-07-04 20:00] VITALS: BP 135/70
[2019-07-04] MEDS ORDERED: Cefepime HCl 1 GM in D5W 55 ML IVPB SCH (21:00)
[2019-07-05] VITALS (23 sets, daily range): BP systolic 52–145; BP diastolic 17–89
--- NOTE | 2019-07-05 00:01 | History and Physical Report ---
DATE OF ADMISSION: 07/04/2019 CHIEF COMPLAINT: The patient is an 83-year-old male, who presents with a chief complaint of shortness of breath. HISTORY OF PRESENT ILLNESS: The patient is a resident of [facility]. According to staff at [facility], the patient has been increasingly short of breath over the last couple of days. The patient himself is nonverbal. Much of the history and physical is obtained from the patient's chart. EMS was called. The patient was transported to [facility] emergency room. The patient is admitted with dyspnea to rule out pneumonia. REVIEW OF SYSTEMS: Unable to assess secondary to the patient's mental status. PAST MEDICAL HISTORY: Significant for, 1. Parkinson's disease. 2. Diabetes type 2. 3. Hypercholesterolemia. 4. Dilated cardiomyopathy. 5. Dysphagia. 6. Hypertensive heart disease. 7. Benign prostatic hypertrophy. PAST SURGICAL HISTORY: Significant for PEG placement. CURRENT MEDICATIONS: 1. Vitamin C 500 mg p.o. daily. 2. DuoNeb nebulized q.6 hours p.r.n. 3. Magnesium hydroxide 30 mL p.o. p.r.n. 4. Zofran 4 mg p.o. q.8 hours p.r.n. ALLERGIES: Penicillin. SOCIAL HISTORY: The patient is and lives at [facility]. The patient denies tobacco or alcohol use. PHYSICAL EXAMINATION: VITAL SIGNS: Temperature 99, respirations 26, pulse 106, blood pressure 84/48, and oxygen saturation was 94% on non-rebreather. GENERAL: The patient is a well-developed and well-nourished male, in moderate respiratory distress. HEENT: Eyes, pupils are equal and responsive to light and accommodation. Extraocular movements are intact. NECK: Supple without lymphadenopathy. CHEST: Coarse breath sounds bilaterally with expiratory wheezes. Otherwise, without crackles. ABDOMINAL: Soft, nontender, and nondistended. Positive bowel sounds. No evidence of hepatosplenomegaly. Currently, no rebound or guarding noted. CARDIOVASCULAR: Tachycardic. Regular rhythm. S1 and S2 are normal without murmurs, rubs, or gallops. GENITOURINARY: Deferred. NEUROLOGICAL: Cranial nerves II to XII are grossly intact without focal deficits. EXTREMITIES: Negative for clubbing, cyanosis, or edema. LABORATORY STUDIES: WBC 10.6, hemoglobin 11.7, hematocrit 35.0, and platelets 235,000. Sodium 144, potassium 5.9, chloride 108, CO2 26, BUN 54, creatinine 1.6, and glucose 178. Troponin 0.03. Chest x-ray was reported as no acute disease. A V/Q scan of the lung is pending. ASSESSMENT: This is an 83-year-old male. 1. Dyspnea. 2. Respiratory distress. 3. Diabetes type 2. 4. Parkinson disease. 5. Hypercholesterolemia. 6. Dilated cardiomyopathy. 7. Dysphagia. 8. Benign prostatic hypertrophy. TREATMENT: 1. Dyspnea/respiratory distress. A Pulmonary consultation has been obtained with Dr. Kathryn Lopez. The patient is currently on BiPAP. The patient is currently receiving cefepime intravenously. The patient has also been started on vancomycin and metronidazole empirically. We will follow recommendations of Pulmonary. 2. Diabetes type 2. The patient apparently is receiving antihyperglycemics in the skilled nursing. Continue to follow serial venous glucose samples. 3. Hypercholesterolemia. 4. Dilated cardiomyopathy. 5. Dysphagia. The patient is status post PEG placement. 6. Hypertensive heart disease. 7. Benign prostatic hypertrophy. Shukri Glover M.D. DR: ELIZA JOB#: [id number] CC:
--- NOTE | 2019-07-05 03:00 | NUR ---
NURSE NOTES: Patient is sleeping with no acute distress noted. patient still congestive , RT at bedside for oral suction. vs stable. Afebrile. provided sponge bath and oral care given.
[2019-07-05 04:50] LABS: HEMATOCRIT 30.3 % (42.0-52.0); HEMOGLOBIN 9.7 G/DL (14.2-18.0); MEAN CORPUSCULAR VOLUME 87 FL (80-99); PLATELET COUNT 194 K/UL (150-450); RED BLOOD COUNT 3.48 M/UL (4.70-6.10); RED CELL DISTRIBUTION WIDTH 14.4 % (11.6-14.8); WHITE BLOOD COUNT 6.5 K/UL (4.8-10.8)
[2019-07-05 04:57] LABS: ALANINE AMINOTRANSFERASE 38 U/L (12-78); ALBUMIN 2.7 G/DL (3.4-5.0); ALBUMIN/GLOBULIN RATIO 0.7 (1.0-2.7); ALKALINE PHOSPHATASE 61 U/L (46-116); ANION GAP 9 mmol/L (5-15); ASPARTATE AMINO TRANSFERASE 19 U/L (15-37); BILIRUBIN,TOTAL 0.3 MG/DL (0.2-1.0); BLOOD UREA NITROGEN 40 mg/dL (7-18); CALCIUM 7.3 MG/DL (8.5-10.1); CARBON DIOXIDE 23 MMOL/L (21-32); CHLORIDE 115 MMOL/L (98-107); CREATININE 1.1 MG/DL (0.55-1.30); POTASSIUM 4.3 MMOL/L (3.5-5.1); SODIUM 147 MMOL/L (136-145)
[2019-07-05 05:07] LABS: INR 1.1 (0.9-1.1)
[2019-07-05 05:12] LABS: % IRON SATURATION 5 % (15-50); IRON 11 ug/dL (50-175); LACTATE DEHYDROGENASE 207 U/L (81-234); TOTAL IRON BINDING CAPACITY 227 ug/dL (250-450)
[2019-07-05] MEDS: Heparin 5000 units/ml inj SUBQ SCH ×3 (06:08→21:24)
[2019-07-05] MEDS ORDERED: Albuterol/Ipratropium 3ml neb HHN PRN ×2 (07:30→15:30)
[2019-07-05] MEDS ORDERED: Promethazine/Codeine 5ml UD ORAL PRN ×2 (07:30→15:30)
--- NOTE | 2019-07-05 07:45 | NUR ---
TRANSFER TO FLOOR: Patient transferred to 2E Room 218-2. Report given to CLIFF HERMAN. No Belongings and medications given to CLIFF HERMAN . Family and or S/O informed of transfer.
--- NOTE | 2019-07-05 07:47 | NUR ---
NURSE NOTES: Received report from Buffy Nicholas RN. Observed patient in bed, asleep, opens eyes spontaneously. On Venturi Mask, no respiratory distress noted. Left EJ IV intact and patent with IV fluids infusing at prescribed rate. Patient remains NPO as ordered. Juan catheter noted, draining to gravity. Safety precautions in place, bed locked, alarmed and in lowest position, side rails up x3, and call light left within reach. Will continue plan of care and will continue to monitor.
[2019-07-05] MEDS ORDERED: Vancomycin 1.5gm/NS Premix q24h IVPB SCH ×2 (10:00→14:30)
--- NOTE | 2019-07-05 10:35 | NUR ---
NURSE NOTES: Optical Laboratory Technician was notified that patient's HR is 40's, patient was checked; unresponsive. Rapid response/Code Blue called. Seen code blue sheet.
--- NOTE | 2019-07-05 10:35 | NUR ---
CODE BLUE: See Code sheet which remains on paper.
--- NOTE | 2019-07-05 10:58 | NUR ---
NURSE NOTES: Patient's Nimo Hernandez notified and made aware of patient's condition.
--- NOTE | 2019-07-05 11:00 | NUR ---
NURSE NOTES: Pt received from VIRGIL Kan. Pt is s/p cardiac arrest from tele unit. Pt brought to unit via hospital bed and O2 tank. VS as follows: HR 128 BP 59/33 SpO2 99% RR 22 T 98.3 F ax. Pt is unresponsive to voice and shaking and does not open eyes spontaneously or follow commands. Pupils are equal and round, sluggish light rxn, 3mm bilaterally. Pt noted with ETT 7.5 24 cm at right lip corner. Pt hooked to ventilator with settings ordered by Dr Lopez: AC 16 TV 600 FiO2 55% Peep 5. Right upper lung long diminished upon auscultation- remaining lobes are CTA. Pt currently NPO since admission- GT noted clamped. Bowel sounds present to all quadrants. Pt has a F/C draining light kristen urine. Skin alterations noted. Pt has a RFA 22g IV and LEJ 18g IV patent and flushed. Orders currently being placed by Dr. Lopez for central line placement, fluid resuscitation, and labs. Preparing to bolus pt with 1000cc of NS per Dr Lopez. Dr Bowen also at bedside placing orders and assessing pt. Bed in lowest position, low ryan, legs elevated, side rails up x 3, call light within reach. Pt has no belongings, will continue to monitor.
--- NOTE | 2019-07-05 11:05 | NUR ---
NURSE NOTES: Dr Lopez at bedside.
--- NOTE | 2019-07-05 11:06 | Cardiac Electrophysiology PN ---
Subjective Subjective [id number] Objective Last 24 Hour Vital Signs Date Time Temp Pulse Resp B/P (MAP) Pulse Ox O2 Delivery O2 Flow Rate FiO2 07/05/19 09:00 Venturi Mask 12.0 07/05/19 08:00 12.0 07/05/19 08:00 97.6 82 18 142/78 (99) 97 07/05/19 04:00 Venturi Mask 12.0 07/05/19 04:00 78 07/05/19 04:00 12.0 07/05/19 04:00 98.2 76 24 131/62 (85) 100 07/05/19 00:00 12.0 07/05/19 00:00 98.2 89 24 100/58 (72) 100 07/05/19 00:00 Venturi Mask 12.0 07/05/19 00:00 84 07/04/19 20:00 87 07/04/19 20:00 12.0 07/04/19 20:00 98.4 87 24 135/70 (91) 100 07/04/19 20:00 Venturi Mask 12.0 07/04/19 16:00 98.5 89 20 131/86 (101) 100 07/04/19 16:00 Venturi Mask 12.0 07/04/19 16:00 12.0 07/04/19 15:26 86 07/04/19 12:00 40 07/04/19 12:00 Bi-pap 07/04/19 12:00 99.3 60 21 113/61 (78) 99 07/04/19 11:42 85 Intake and Output 07/04/19 07/05/19 19:00 07:00 Intake Total 1500.0 ml 1200 ml Output Total 800 ml 800 ml Balance 700.0 ml 400 ml IV Total 1500.0 ml 1200 ml Output Urine Total 800 ml 800 ml # Bowel Movements 2 Laboratory Tests Test 07/04/19 12:45 07/04/19 16:45 07/05/19 03:50 White Blood Count 8.2 K/UL (4.8-10.8) 6.5 K/UL (4.8-10.8) Red Blood Count 4.04 M/UL (4.70-6.10) L 3.48 M/UL (4.70-6.10) L Hemoglobin 11.2 G/DL (14.2-18.0) L 9.7 G/DL (14.2-18.0) L Hematocrit 35.5 % (42.0-52.0) L 30.3 % (42.0-52.0) L Mean Corpuscular Volume 88 FL (80-99) 87 FL (80-99) Mean Corpuscular Hemoglobin 27.8 PG (27.0-31.0) 27.8 PG (27.0-31.0) Mean Corpuscular Hemoglobin Concent 31.6 G/DL (32.0-36.0) L 32.0 G/DL (32.0-36.0) Red Cell Distribution Width 14.4 % (11.6-14.8) 14.4 % (11.6-14.8) Platelet Count 191 K/UL (150-450) 194 K/UL (150-450) Mean Platelet Volume 6.8 FL (6.5-10.1) 7.8 FL (6.5-10.1) Neutrophils (%) (Auto) % (45.0-75.0) % (45.0-75.0) Lymphocytes (%) (Auto) % (20.0-45.0) % (20.0-45.0) Monocytes (%) (Auto) % (1.0-10.0) % (1.0-10.0) Eosinophils (%) (Auto) % (0.0-3.0) % (0.0-3.0) Basophils (%) (Auto) % (0.0-2.0) % (0.0-2.0) Differential Total Cells Counted 100 100 Neutrophils % (Manual) 88 % (45-75) H 90 % (45-75) H Lymphocytes % (Manual) 6 % (20-45) L 8 % (20-45) L Monocytes % (Manual) 6 % (1-10) 2 % (1-10) Eosinophils % (Manual) 0 % (0-3) 0 % (0-3) Basophils % (Manual) 0 % (0-2) 0 % (0-2) Band Neutrophils 0 % (0-8) 0 % (0-8) Platelet Estimate Adequate Adequate Platelet Morphology Normal Normal Red Blood Cell Morphology Normal Sodium Level 150 MMOL/L (136-145) H 147 MMOL/L (136-145) H Potassium Level 5.1 MMOL/L (3.5-5.1) 4.3 MMOL/L (3.5-5.1) Chloride Level 118 MMOL/L (98-107) H 115 MMOL/L (98-107) H Carbon Dioxide Level 23 MMOL/L (21-32) 23 MMOL/L (21-32) Anion Gap 9 mmol/L (5-15) 9 mmol/L (5-15) Blood Urea Nitrogen 49 mg/dL (7-18) H 40 mg/dL (7-18) H Creatinine 1.3 MG/DL (0.55-1.30) 1.1 MG/DL (0.55-1.30) Estimat Glomerular Filtration Rate mL/min (>60) mL/min (>60) Glucose Level 118 MG/DL (74-106) H 90 MG/DL (74-106) Uric Acid 7.0 MG/DL (2.6-7.2) Calcium Level 7.5 MG/DL (8.5-10.1) L 7.3 MG/DL (8.5-10.1) L Total Bilirubin 0.3 MG/DL (0.2-1.0) 0.3 MG/DL (0.2-1.0) Aspartate Amino Transf (AST/SGOT) 20 U/L (15-37) 19 U/L (15-37) Alanine Aminotransferase (ALT/SGPT) 46 U/L (12-78) 38 U/L (12-78) Alkaline Phosphatase 65 U/L (46-116) 61 U/L (46-116) Total Creatine Kinase 69 U/L (26-308) Total Protein 7.1 G/DL (6.4-8.2) 6.6 G/DL (6.4-8.2) Albumin 2.9 G/DL (3.4-5.0) L 2.7 G/DL (3.4-5.0) L Globulin 4.2 g/dL 3.9 g/dL Albumin/Globulin Ratio 0.7 (1.0-2.7) L 0.7 (1.0-2.7) L Urine Color Pale yellow Urine Appearance Very cloudy Urine pH 5 (4.5-8.0) Urine Specific [place] 1.015 (1.005-1.035) Urine Protein 2+ (NEGATIVE) H Urine Glucose (UA) Negative (NEGATIVE) Urine Ketones Negative (NEGATIVE) Urine Blood 5+ (NEGATIVE) H Urine Nitrite Negative (NEGATIVE) Urine Bilirubin Negative (NEGATIVE) Urine Urobilinogen Normal MG/DL (0.0-1.0) Urine Leukocyte Esterase 1+ (NEGATIVE) H Urine RBC Tntc /HPF (0 - 0) H Urine WBC 5-10 /HPF (0 - 0) H Urine Squamous Epithelial Cells None /LPF (NONE/OCC) Urine Bacteria Few /HPF (NONE) Urine Eosinophils None seen (NONE SEEN) Urine Osmolality 598 mOsm/kg (429-449) H Urine Random Creatinine Pending Urine Random Microalbumin Pending Urine Random Sodium 49 mmol/L (20-110) Urine Microalbumin/Creatinine Ratio Pending Anisocytosis 1+ Erythrocyte Sedimentation Rate 64 MM/HR (0-20) H Reticulocyte Count 0.9 % (0.5-2.0) Prothrombin Time 12.1 SEC (9.30-11.50) H Prothromb Time International Ratio 1.1 (0.9-1.1) Activated Partial Thromboplast Time 29 SEC (23-33) Phosphorus Level 3.0 MG/DL (2.5-4.9) Magnesium Level 2.0 MG/DL (1.8-2.4) Iron Level 11 ug/dL (50-175) L Total Iron Binding Capacity 227 ug/dL (250-450) L Percent Iron Saturation 5 % (15-50) L Unsaturated Iron Binding 216 ug/dL (112-346) Lactate Dehydrogenase 207 U/L (81-234) Troponin I 0.000 ng/mL (0.000-0.056) C-Reactive Protein, Quantitative 17.5 mg/dL (0.00-0.90) H Carcinoembryonic Antigen Pending Vitamin B12 Level 1160 PG/ML (193-986) H Folate 27.0 NG/ML (8.6-58.9) Random Vancomycin Level 8.5 ug/mL Microbiology Date/Time Source Procedure Growth Status 07/04/19 01:00 Blood Blood Culture - Preliminary NO GROWTH AFTER 24 HOURS Resulted 07/04/19 00:55 Blood Blood Culture - Preliminary NO GROWTH AFTER 24 HOURS Resulted 1/30/20 10:15 Sputum Gram Stain - Final Resulted 07/04/19 10:15 Sputum Sputum Culture Pending Resulted 07/04/19 01:10 Nasal Nares - Final Complete 07/04/19 01:10 Nasal Nares - Final Complete 07/04/19 01:25 Urine,Clean Catch Urine Culture - Preliminary NO GROWTH Resulted Enio Santos MD Jul 05, 2019 11:06
--- NOTE | 2019-07-05 11:11 | NUR ---
NURSE NOTES: Primary doctor Dr Woods notified and made aware patient was transferred to ICU.
--- NOTE | 2019-07-05 11:11 | Diagnostic Imaging Report ---
Indication:Elevated Bun and Creatinine. Technique: Grayscale and duplex Doppler imaging of the kidneys performed. Comparison: None Findings: Kidneys are echogenic. The renal pattern remains appear hypoechoic. There may be a stone in the lower pole of the right kidney. The right kidney measures 10.3 cm in length. The left kidney is hydronephrotic, moderately so. The left kidney measures 11.6 cm in length. The IVC is patent. Urinary bladder is nondistended as there is a Juan catheter present. IMPRESSION: Moderate left hydronephrosis. Further evaluation with CT is suggested. Juan catheter. Echogenic right kidney. Suspected medical renal disease.
--- NOTE | 2019-07-05 11:14 | Pulmonolgy Critical Care Note ---
Critical Care - Asmt/Plan Problems: (1) Cardiac arrest (2) Respiratory failure with hypoxia (3) Hypotension (4) Parkinson disease (5) Feeding by G-tube (6) Diabetes mellitus Respiratory: monitor respiratory rate, adjust FIO2, CXR Cardiac: continue pressors, continue to monitor HR/BP Renal: F/U I&O, keep IV fluid, check electrolytes Infectious Disease: check cultures, continue antibiotics Gastrointestinal: hold feedings Endocrine: monitor blood sugar Hematologic: monitor H/H, transfuse if hgb<8.5 Neurologic: PRN Ativan, PRN Morphine, keep patient comfortable Affect: PRN ativan Time Spent (Minutes): 40 Notes Reviewed: deputy court clerk, cardio, renal Discussed with: nurses, consultants, behavioral health case manageradmitting manager - Objective Last 24 Hour Vital Signs Date Time Temp Pulse Resp B/P (MAP) Pulse Ox O2 Delivery O2 Flow Rate FiO2 07/05/19 09:00 Venturi Mask 12.0 07/05/19 08:00 12.0 07/05/19 08:00 97.6 82 18 142/78 (99) 97 07/05/19 04:00 Venturi Mask 12.0 07/05/19 04:00 78 07/05/19 04:00 12.0 07/05/19 04:00 98.2 76 24 131/62 (85) 100 07/05/19 00:00 12.0 07/05/19 00:00 98.2 89 24 100/58 (72) 100 07/05/19 00:00 Venturi Mask 12.0 07/05/19 00:00 84 07/04/19 20:00 87 07/04/19 20:00 12.0 07/04/19 20:00 98.4 87 24 135/70 (91) 100 07/04/19 20:00 Venturi Mask 12.0 07/04/19 16:00 98.5 89 20 131/86 (101) 100 07/04/19 16:00 Venturi Mask 12.0 07/04/19 16:00 12.0 07/04/19 15:26 86 07/04/19 12:00 40 07/04/19 12:00 Bi-pap 07/04/19 12:00 99.3 60 21 113/61 (78) 99 07/04/19 11:42 85 Status: obtunded Condition: critical HEENT: atraumatic Lungs: rales, rhonchi Heart: HR/BP unstable Abdomen: soft, non-tender Extremities: no C/C/E Decubiti: location Micro: Microbiology Date/Time Source Procedure Growth Status 07/04/19 01:00 Blood Blood Culture - Preliminary NO GROWTH AFTER 24 HOURS Resulted 07/04/19 00:55 Blood Blood Culture - Preliminary NO GROWTH AFTER 24 HOURS Resulted 07/04/19 10:15 Sputum Gram Stain - Final Resulted 07/04/19 10:15 Sputum Sputum Culture Pending Resulted 07/04/19 01:10 Nasal Nares - Final Complete 07/04/19 01:10 Nasal Nares - Final Complete 07/04/19 01:25 Urine,Clean Catch Urine Culture - Preliminary NO GROWTH Resulted Critical Care - Subjective ROS Limited/Unobtainable: Yes Interval Events: pt hillary down and developed bradycardia and arrested. Code blue was called and it took 10 minutes to revive him. He is transferred to ICU for further work up. FI02: 40 Vent Support Mode: BiLevel Sputum Amount: Moderate I&O: Intake and Output 07/04/19 07/05/19 19:00 07:00 Intake Total 1500.0 ml 1200 ml Output Total 800 ml 800 ml Balance 700.0 ml 400 ml IV Total 1500.0 ml 1200 ml Output Urine Total 800 ml 800 ml # Bowel Movements 2 Labs: Laboratory Tests Test 07/04/19 12:45 07/04/19 16:45 07/05/19 03:50 White Blood Count 8.2 K/UL (4.8-10.8) 6.5 K/UL (4.8-10.8) Red Blood Count 4.04 M/UL (4.70-6.10) L 3.48 M/UL (4.70-6.10) L Hemoglobin 11.2 G/DL (14.2-18.0) L 9.7 G/DL (14.2-18.0) L Hematocrit 35.5 % (42.0-52.0) L 30.3 % (42.0-52.0) L Mean Corpuscular Volume 88 FL (80-99) 87 FL (80-99) Mean Corpuscular Hemoglobin 27.8 PG (27.0-31.0) 27.8 PG (27.0-31.0) Mean Corpuscular Hemoglobin Concent 31.6 G/DL (32.0-36.0) L 32.0 G/DL (32.0-36.0) Red Cell Distribution Width 14.4 % (11.6-14.8) 14.4 % (11.6-14.8) Platelet Count 191 K/UL (150-450) 194 K/UL (150-450) Mean Platelet Volume 6.8 FL (6.5-10.1) 7.8 FL (6.5-10.1) Neutrophils (%) (Auto) % (45.0-75.0) % (45.0-75.0) Lymphocytes (%) (Auto) % (20.0-45.0) % (20.0-45.0) Monocytes (%) (Auto) % (1.0-10.0) % (1.0-10.0) Eosinophils (%) (Auto) % (0.0-3.0) % (0.0-3.0) Basophils (%) (Auto) % (0.0-2.0) % (0.0-2.0) Differential Total Cells Counted 100 100 Neutrophils % (Manual) 88 % (45-75) H 90 % (45-75) H Lymphocytes % (Manual) 6 % (20-45) L 8 % (20-45) L Monocytes % (Manual) 6 % (1-10) 2 % (1-10) Eosinophils % (Manual) 0 % (0-3) 0 % (0-3) Basophils % (Manual) 0 % (0-2) 0 % (0-2) Band Neutrophils 0 % (0-8) 0 % (0-8) Platelet Estimate Adequate Adequate Platelet Morphology Normal Normal Red Blood Cell Morphology Normal Sodium Level 150 MMOL/L (136-145) H 147 MMOL/L (136-145) H Potassium Level 5.1 MMOL/L (3.5-5.1) 4.3 MMOL/L (3.5-5.1) Chloride Level 118 MMOL/L (98-107) H 115 MMOL/L (98-107) H Carbon Dioxide Level 23 MMOL/L (21-32) 23 MMOL/L (21-32) Anion Gap 9 mmol/L (5-15) 9 mmol/L (5-15) Blood Urea Nitrogen 49 mg/dL (7-18) H 40 mg/dL (7-18) H Creatinine 1.3 MG/DL (0.55-1.30) 1.1 MG/DL (0.55-1.30) Estimat Glomerular Filtration Rate mL/min (>60) mL/min (>60) Glucose Level 118 MG/DL (74-106) H 90 MG/DL (74-106) Uric Acid 7.0 MG/DL (2.6-7.2) Calcium Level 7.5 MG/DL (8.5-10.1) L 7.3 MG/DL (8.5-10.1) L Total Bilirubin 0.3 MG/DL (0.2-1.0) 0.3 MG/DL (0.2-1.0) Aspartate Amino Transf (AST/SGOT) 20 U/L (15-37) 19 U/L (15-37) Alanine Aminotransferase (ALT/SGPT) 46 U/L (12-78) 38 U/L (12-78) Alkaline Phosphatase 65 U/L (46-116) 61 U/L (46-116) Total Creatine Kinase 69 U/L (26-308) Total Protein 7.1 G/DL (6.4-8.2) 6.6 G/DL (6.4-8.2) Albumin 2.9 G/DL (3.4-5.0) L 2.7 G/DL (3.4-5.0) L Globulin 4.2 g/dL 3.9 g/dL Albumin/Globulin Ratio 0.7 (1.0-2.7) L 0.7 (1.0-2.7) L Urine Color Pale yellow Urine Appearance Very cloudy Urine pH 5 (4.5-8.0) Urine Specific [place] 1.015 (1.005-1.035) Urine Protein 2+ (NEGATIVE) H Urine Glucose (UA) Negative (NEGATIVE) Urine Ketones Negative (NEGATIVE) Urine Blood 5+ (NEGATIVE) H Urine Nitrite Negative (NEGATIVE) Urine Bilirubin Negative (NEGATIVE) Urine Urobilinogen Normal MG/DL (0.0-1.0) Urine Leukocyte Esterase 1+ (NEGATIVE) H Urine RBC Tntc /HPF (0 - 0) H Urine WBC 5-10 /HPF (0 - 0) H Urine Squamous Epithelial Cells None /LPF (NONE/OCC) Urine Bacteria Few /HPF (NONE) Urine Eosinophils None seen (NONE SEEN) Urine Osmolality 598 mOsm/kg (429-449) H Urine Random Creatinine Pending Urine Random Microalbumin Pending Urine Random Sodium 49 mmol/L (20-110) Urine Microalbumin/Creatinine Ratio Pending Anisocytosis 1+ Erythrocyte Sedimentation Rate 64 MM/HR (0-20) H Reticulocyte Count 0.9 % (0.5-2.0) Prothrombin Time 12.1 SEC (9.30-11.50) H Prothromb Time International Ratio 1.1 (0.9-1.1) Activated Partial Thromboplast Time 29 SEC (23-33) Phosphorus Level 3.0 MG/DL (2.5-4.9) Magnesium Level 2.0 MG/DL (1.8-2.4) Iron Level 11 ug/dL (50-175) L Total Iron Binding Capacity 227 ug/dL (250-450) L Percent Iron Saturation 5 % (15-50) L Unsaturated Iron Binding 216 ug/dL (112-346) Lactate Dehydrogenase 207 U/L (81-234) Troponin I 0.000 ng/mL (0.000-0.056) C-Reactive Protein, Quantitative 17.5 mg/dL (0.00-0.90) H Carcinoembryonic Antigen Pending Vitamin B12 Level 1160 PG/ML (193-986) H Folate 27.0 NG/ML (8.6-58.9) Random Vancomycin Level 8.5 ug/mL Kathryn Lopez MD Jul 05, 2019 11:14
[2019-07-05] MEDS ORDERED: Pantoprazole Inj IV SCH (11:15)
[2019-07-05] MEDS ORDERED: Morphine Sulfate 4mg/ml Inj (IV USE ONLY) IVP PRN ×2 (11:15→15:15)
[2019-07-05] MEDS ORDERED: LORazepam Inj 2mg/ml 1ml IV PRN ×2 (11:15→15:15)
--- NOTE | 2019-07-05 11:15 | NUR ---
NURSE NOTES: Pt being bolused with NS at 999 cc/hr.
--- NOTE | 2019-07-05 11:25 | NUR ---
HAND-OFF: Report given to VIRGIL Delgado.
--- NOTE | 2019-07-05 11:48 | Diagnostic Imaging Report ---
Indication: Intubation Comparison: 07/04/2019 A single view chest radiograph was obtained. Findings: Endotracheal tube has been passed and is in good position about 3 cm above the inna. The heart is enlarged. There is mild pulmonary vascular congestion present. IMPRESSION: Endotracheal tube in good position. Mild CHF
--- NOTE | 2019-07-05 11:54 | NUR ---
RADIOLOGY DEPT., CHEST X-RAY POST CODE, ETT PLCMT COMPLETED.-P.DYE
--- NOTE | 2019-07-05 12:00 | NUR ---
NURSE NOTES: Pt responsive to fluid resuscitation intervention. BP noted 107/36. No acute distress noted. Mental status unchanged. Oral care provided. Pt repositioned. Will continue to monitor.
--- NOTE | 2019-07-05 12:30 | NUR ---
NURSE NOTES: Right IJ TLC cetral line placed by Dr. Flores. Awaiting CXR results for line placement confirmation.
--- NOTE | 2019-07-05 12:51 | Emergency Room Report ---
Physical Exam Called for Code Blue Last 24 Hour Vital Signs Date Time Temp Pulse Resp B/P (MAP) Pulse Ox O2 Delivery O2 Flow Rate FiO2 07/05/19 12:00 55 07/05/19 11:45 107/36 07/05/19 11:40 104 18 89/40 (56) 100 07/05/19 11:30 107 24 94/41 (58) 100 07/05/19 11:30 112 18 55 07/05/19 11:20 111 24 52/17 (29) 100 07/05/19 11:10 116 22 64/17 (33) 100 07/05/19 11:00 55 07/05/19 11:00 98.3 141 18 59/33 (42) 90 07/05/19 09:00 Venturi Mask 12.0 07/05/19 08:17 80 07/05/19 08:00 12.0 07/05/19 08:00 97.6 82 18 142/78 (99) 97 07/05/19 04:00 Venturi Mask 12.0 07/05/19 04:00 78 07/05/19 04:00 12.0 07/05/19 04:00 98.2 76 24 131/62 (85) 100 07/05/19 00:00 12.0 07/05/19 00:00 98.2 89 24 100/58 (72) 100 07/05/19 00:00 Venturi Mask 12.0 07/05/19 00:00 84 07/04/19 20:00 87 07/04/19 20:00 12.0 07/04/19 20:00 98.4 87 24 135/70 (91) 100 07/04/19 20:00 Venturi Mask 12.0 07/04/19 16:00 98.5 89 20 131/86 (101) 100 07/04/19 16:00 Venturi Mask 12.0 07/04/19 16:00 12.0 07/04/19 15:26 86 Sp02 EP Interpretation: reviewed, normal General Appearance: thin, Chronically Ill Head: normocephalic, atraumatic Eyes: bilateral eye abnormal EOM ENT: moist mucus membranes, other - secretions pharynx Neck: supple Respiratory: decreased breath sounds Cardiovascular #1: other - pulses with CPR Cardiovascular #2: 1+ femoral (R) Gastrointestinal: decreased bowel sounds Genitourinary: other - nixon Neurologic: other - unresponsive and flaccid Psychiatric: other - unresponsive Skin: cyanosis, warm/dry Critical Care Time Critical Care Time Total Critical Care Time: 30 min bedside evaluation and treatment excludes procedures (Code, intubation). Reason for critical care: Post code orders, discussion with family, re- assessment, ABG by me Possible complications: hypotension, hypertension, CO, shock, arrhythmias, metabolic acidosis, end organ damage, respiratory failure. Interventions: vent orders, CXR, discussion with family, discussion with ICU staff, ABG Course: Code with ROSC and intubation. Transfer to ICU. Discussion with RT and ICU staff. Discussion with family Consultations: nursing staff, RT, family Performed by: Dr. Flores Tolerated well condition = critical CPR/Code Blue CPR/Code Blue Narrative Code called 1037. CPR in progress and supervised by me. PEA with bradycardia. Atropine given. Epinephrine given. Intubated 10:35. Pulses. ROCS at 10:44 Transfer to ICU. Intubation Intubation : Consent: Emergent Intubation Method: orotracheal Tube Size (cm): 7.5 - 23 cm teeth Medications: Other - none Breath Sounds after Intubation: equal Intubation Complications: no complications Post Intubation Xray: Yes Attempts: Other - 2 due to large vollecula Complications: None Medical Decision Making Diagnostic Impression: Primary Impression: Respiratory failure with hypoxia Qualified Codes: J96.01 - Acute respiratory failure with hypoxia Additional Impression: Cardiopulmonary arrest ER Course Patient with hillary and then Code Blue. See procedures. Respiratory then cardiac arrest. Transferred to ICU. Laboratory Tests Test 07/04/19 00:55 07/04/19 01:25 07/04/19 02:18 07/04/19 05:17 White Blood Count 10.6 K/UL (4.8-10.8) Red Blood Count 4.12 M/UL (4.70-6.10) L Hemoglobin 11.7 G/DL (14.2-18.0) L Hematocrit 35.0 % (42.0-52.0) L Mean Corpuscular Volume 85 FL (80-99) Mean Corpuscular Hemoglobin 28.4 PG (27.0-31.0) Mean Corpuscular Hemoglobin Concent 33.4 G/DL (32.0-36.0) Red Cell Distribution Width 13.8 % (11.6-14.8) Platelet Count 235 K/UL (150-450) Mean Platelet Volume 6.7 FL (6.5-10.1) Neutrophils (%) (Auto) % (45.0-75.0) Lymphocytes (%) (Auto) % (20.0-45.0) Monocytes (%) (Auto) % (1.0-10.0) Eosinophils (%) (Auto) % (0.0-3.0) Basophils (%) (Auto) % (0.0-2.0) Sodium Level 144 MMOL/L (136-145) Potassium Level 5.9 MMOL/L (3.5-5.1) H Chloride Level 108 MMOL/L (98-107) H Carbon Dioxide Level 26 MMOL/L (21-32) Anion Gap 10 mmol/L (5-15) Blood Urea Nitrogen 54 mg/dL (7-18) H Creatinine 1.6 MG/DL (0.55-1.30) H Estimate Glomerular Filtration Rate mL/min (>60) Glucose Level 178 MG/DL (74-106) H Lactic Acid Level 1.40 mmol/L (0.4-2.0) Calcium Level 8.2 MG/DL (8.5-10.1) L Total Bilirubin 0.4 MG/DL (0.2-1.0) Aspartate Amino Transferase (AST) 46 U/L (15-37) H Alanine Aminotransferase (ALT) 59 U/L (12-78) Alkaline Phosphatase 84 U/L (46-116) Total Creatine Kinase 160 U/L (26-308) Creatine Kinase MB 0.6 NG/ML (0.0-3.6) Creatine Kinase MB Relative Index 0.3 Troponin I 0.003 ng/mL (0.000-0.056) Total Protein 7.6 G/DL (6.4-8.2) Albumin 3.4 G/DL (3.4-5.0) Globulin 4.2 g/dL Albumin/Globulin Ratio 0.8 (1.0-2.7) L Urine Color Yellow Urine Appearance Slightly cloudy Urine pH 5 (4.5-8.0) Urine Specific [place] 1.020 (1.005-1.035) Urine Protein 2+ (NEGATIVE) H Urine Glucose (UA) Negative (NEGATIVE) Urine Ketones 1+ (NEGATIVE) H Urine Blood 5+ (NEGATIVE) H Urine Nitrite Negative (NEGATIVE) Urine Bilirubin Negative (NEGATIVE) Urine Urobilinogen Normal MG/DL (0.0-1.0) Urine Leukocyte Esterase 2+ (NEGATIVE) H Urine RBC Tntc /HPF (0 - 0) H Urine WBC 5-10 /HPF (0 - 0) H Urine Squamous Epithelial Cells Few /LPF (NONE/OCC) Urine Bacteria Moderate /HPF (NONE) H Prothrombin Time 11.4 SEC (9.30-11.50) Prothrombin Time INR 1.1 (0.9-1.1) Activated Partial Thromboplast Time 24 SEC (23-33) Arterial Blood pH 7.239 (7.350-7.450) Arterial Blood Partial Pressure CO2 48.1 mmHg (35.0-45.0) H Arterial Blood Partial Pressure O2 305.9 mmHg (75.0-100.0) H Arterial Blood HCO3 20.1 mmol/L (22.0-26.0) L Arterial Blood Oxygen Saturation 99.2 % (95-100) Arterial Blood Base Excess -7.2 (-2-2) L Phan Test Positive Test 07/04/19 08:50 07/04/19 12:45 07/04/19 16:45 07/05/19 03:50 Arterial Blood pH 7.313 (7.350-7.450) Arterial Blood Partial Pressure CO2 41.1 mmHg (35.0-45.0) Arterial Blood Partial Pressure O2 141.1 mmHg (75.0-100.0) H Arterial Blood HCO3 20.4 mmol/L (22.0-26.0) L Arterial Blood Oxygen Saturation 98.3 % (95-100) Arterial Blood Base Excess -5.5 (-2-2) L Phan Test Positive White Blood Count 8.2 K/UL (4.8-10.8) 6.5 K/UL (4.8-10.8) Red Blood Count 4.04 M/UL (4.70-6.10) L 3.48 M/UL (4.70-6.10) L Hemoglobin 11.2 G/DL (14.2-18.0) L 9.7 G/DL (14.2-18.0) L Hematocrit 35.5 % (42.0-52.0) L 30.3 % (42.0-52.0) L Mean Corpuscular Volume 88 FL (80-99) 87 FL (80-99) Mean Corpuscular Hemoglobin 27.8 PG (27.0-31.0) 27.8 PG (27.0-31.0) Mean Corpuscular Hemoglobin Concent 31.6 G/DL (32.0-36.0) L 32.0 G/DL (32.0-36.0) Red Cell Distribution Width 14.4 % (11.6-14.8) 14.4 % (11.6-14.8) Platelet Count 191 K/UL (150-450) 194 K/UL (150-450) Mean Platelet Volume 6.8 FL (6.5-10.1) 7.8 FL (6.5-10.1) Neutrophils (%) (Auto) % (45.0-75.0) % (45.0-75.0) Lymphocytes (%) (Auto) % (20.0-45.0) % (20.0-45.0) Monocytes (%) (Auto) % (1.0-10.0) % (1.0-10.0) Eosinophils (%) (Auto) % (0.0-3.0) % (0.0-3.0) Basophils (%) (Auto) % (0.0-2.0) % (0.0-2.0) Differential Total Cells Counted 100 100 Neutrophils % (Manual) 88 % (45-75) H 90 % (45-75) H Lymphocytes % (Manual) 6 % (20-45) L 8 % (20-45) L Monocytes % (Manual) 6 % (1-10) 2 % (1-10) Eosinophils % (Manual) 0 % (0-3) 0 % (0-3) Basophils % (Manual) 0 % (0-2) 0 % (0-2) Band Neutrophils 0 % (0-8) 0 % (0-8) Platelet Estimate Adequate Adequate Platelet Morphology Normal Normal Red Blood Cell Morphology Normal Sodium Level 150 MMOL/L (136-145) H 147 MMOL/L (136-145) H Potassium Level 5.1 MMOL/L (3.5-5.1) 4.3 MMOL/L (3.5-5.1) Chloride Level 118 MMOL/L (98-107) H 115 MMOL/L (98-107) H Carbon Dioxide Level 23 MMOL/L (21-32) 23 MMOL/L (21-32) Anion Gap 9 mmol/L (5-15) 9 mmol/L (5-15) Blood Urea Nitrogen 49 mg/dL (7-18) H 40 mg/dL (7-18) H Creatinine 1.3 MG/DL (0.55-1.30) 1.1 MG/DL (0.55-1.30) Estimate Glomerular Filtration Rate mL/min (>60) mL/min (>60) Glucose Level 118 MG/DL (74-106) H 90 MG/DL (74-106) Uric Acid 7.0 MG/DL (2.6-7.2) Calcium Level 7.5 MG/DL (8.5-10.1) L 7.3 MG/DL (8.5-10.1) L Total Bilirubin 0.3 MG/DL (0.2-1.0) 0.3 MG/DL (0.2-1.0) Aspartate Amino Transferase (AST) 20 U/L (15-37) 19 U/L (15-37) Alanine Aminotransferase (ALT) 46 U/L (12-78) 38 U/L (12-78) Alkaline Phosphatase 65 U/L (46-116) 61 U/L (46-116) Total Creatine Kinase 69 U/L (26-308) Total Protein 7.1 G/DL (6.4-8.2) 6.6 G/DL (6.4-8.2) Albumin 2.9 G/DL (3.4-5.0) L 2.7 G/DL (3.4-5.0) L Globulin 4.2 g/dL 3.9 g/dL Albumin/Globulin Ratio 0.7 (1.0-2.7) L 0.7 (1.0-2.7) L Urine Color Pale yellow Urine Appearance Very cloudy Urine pH 5 (4.5-8.0) Urine Specific [place] 1.015 (1.005-1.035) Urine Protein 2+ (NEGATIVE) H Urine Glucose (UA) Negative (NEGATIVE) Urine Ketones Negative (NEGATIVE) Urine Blood 5+ (NEGATIVE) H Urine Nitrite Negative (NEGATIVE) Urine Bilirubin Negative (NEGATIVE) Urine Urobilinogen Normal MG/DL (0.0-1.0) Urine Leukocyte Esterase 1+ (NEGATIVE) H Urine RBC Tntc /HPF (0 - 0) H Urine WBC 5-10 /HPF (0 - 0) H Urine Squamous Epithelial Cells None /LPF (NONE/OCC) Urine Bacteria Few /HPF (NONE) Urine Eosinophils None seen (NONE SEEN) Urine Osmolality 598 mOsm/kg (429-449) H Urine Random Creatinine Pending Urine Random Microalbumin Pending Urine Random Sodium 49 mmol/L (20-110) Urine Microalbumin/Creatinine Ratio Pending Other Cell Type Pathologist review Anisocytosis 1+ Erythrocyte Sedimentation Rate 64 MM/HR (0-20) H Reticulocyte Count 0.9 % (0.5-2.0) Prothrombin Time 12.1 SEC (9.30-11.50) H Prothrombin Time INR 1.1 (0.9-1.1) Activated Partial Thromboplast Time 29 SEC (23-33) Phosphorus Level 3.0 MG/DL (2.5-4.9) Magnesium Level 2.0 MG/DL (1.8-2.4) Iron Level 11 ug/dL (50-175) L Total Iron Binding Capacity 227 ug/dL (250-450) L Percent Iron Saturation 5 % (15-50) L Unsaturated Iron Binding 216 ug/dL (112-346) Lactate Dehydrogenase 207 U/L (81-234) Troponin I 0.000 ng/mL (0.000-0.056) C-Reactive Protein, Quantitative 17.5 mg/dL (0.00-0.90) H Carcinoembryonic Antigen Pending Vitamin B12 Level 1160 PG/ML (193-986) H Folate 27.0 NG/ML (8.6-58.9) Random Vancomycin Level 8.5 ug/mL Test 07/05/19 10:57 07/05/19 12:00 07/05/19 12:45 07/05/19 12:47 Arterial Blood pH 7.097 (7.350-7.450) 7.239 (7.350-7.450) Arterial Blood Partial Pressure CO2 57.2 mmHg (35.0-45.0) *H 37.6 mmHg (35.0-45.0) Arterial Blood Partial Pressure O2 287.8 mmHg (75.0-100.0) H 154.1 mmHg (75.0-100.0) H Arterial Blood HCO3 17.2 mmol/L (22.0-26.0) *L 15.7 mmol/L (22.0-26.0) *L Arterial Blood Oxygen Saturation 99.3 % (95-100) 98.5 % (95-100) Arterial Blood Base Excess -12.5 (-2-2) *L -10.9 (-2-2) *L Phan Test Positive Positive D-Dimer > 35.20 mg/L FEU Troponin I 0.205 ng/mL (0.000-0.056) Sodium Level 149 MMOL/L (136-145) H Potassium Level 5.0 MMOL/L (3.5-5.1) Chloride Level 118 MMOL/L (98-107) H Carbon Dioxide Level 21 MMOL/L (21-32) Anion Gap 10 mmol/L (5-15) Blood Urea Nitrogen 37 mg/dL (7-18) H Creatinine 1.3 MG/DL (0.55-1.30) Estimate Glomerular Filtration Rate mL/min (>60) Glucose Level 142 MG/DL (74-106) H Calcium Level 6.8 MG/DL (8.5-10.1) L Total Bilirubin 0.3 MG/DL (0.2-1.0) Aspartate Amino Transferase (AST) 605 U/L (15-37) H Alanine Aminotransferase (ALT) 603 U/L (12-78) H Alkaline Phosphatase 80 U/L (46-116) Total Protein 6.2 G/DL (6.4-8.2) L Albumin 2.6 G/DL (3.4-5.0) L Globulin 3.6 g/dL Albumin/Globulin Ratio 0.7 (1.0-2.7) L Test 07/05/19 16:30 07/05/19 18:40 Stool Occult Blood Pending Troponin I 0.474 ng/mL (0.000-0.056) Microbiology Date/Time Source Procedure Growth Status 07/04/19 01:10 Nasal Nares - Final Complete 07/04/19 01:10 Nasal Nares - Final Complete Rhythm Strip Diag. Results Rhythm: no PVC's, no ectopy, other - ST ultimately - see other rhythms on Code Blue record Chest X-Ray Diagnostic Results Chest X-Ray Diagnostic Results : Chest X-Ray Ordered: Yes # of Views/Limited/Complete: 1 View Indication: Other EP Interpretation: Yes Interpretation: no effusion, no pneumothorax, other - Infiltrates and ET tube appropriately placed Impression: Other Electronically Signed by: My electronic Status: improved Disposition: ADMITTED INPATIENT Condition: Critical Referrals: Rayshawn Woods MD (PCP) Panda Flores MD Jul 05, 2019 12:51
--- NOTE | 2019-07-05 12:53 | Emergency Room Report ---
Physical Exam Asked to start CVP. Patient post Code. Intermittent hypotension. O2 sat on vent = Sp02 EP Interpretation: reviewed, abnormal - interpreted as low by me (though 100% on 55% FiO2) Head: normocephalic, atraumatic Eyes: bilateral eye PERRL, bilateral eye abnormal EOM - not following but does look towards examiner ENT: moist mucus membranes, other - ET Neck: other - some rigidity Respiratory: rales, rhonchi Cardiovascular #1: regular rate, rhythm, no edema Cardiovascular #2: 2+ radial (R), 2+ femoral (R), 2+ femoral (L) Gastrointestinal: decreased bowel sounds Musculoskeletal: decreased range of motion Neurologic: other - responds to voice and touch, some movement of extremities Skin: no rash, other - sallo Central Line Central Line : Consent: Emergent Central Line Lumen: triple Maximal Sterile Barrier Tech: yes cap, yes mask, yes sterile gown, yes sterile gloves, yes large sterile sheet, yes hand hygiene, yes chlorhexidine prep No Max Barrier Tech Because: emergency insertion Central Line Postion: internal jugular (R) Anesthesia: none Complications: none Central Line Post Position: sutured, good blood return, position confirmed w / CXR Attempts: One Patient Tolerated: Well Complications: None Progress 1245 - inserted with ultrasound. Note - femoral anatomy with artery directly over veins bilaterally Medical Decision Making Diagnostic Impression: Primary Impression: Respiratory failure with hypoxia Qualified Codes: J96.01 - Acute respiratory failure with hypoxia Additional Impression: Cardiac arrest with successful resuscitation ER Course Post cardiac arrest with intermittent hypotension. CVP indicated. See procedure notes. Tolerated well. Blood drawn for cultures and other labs. Discussed with family. Rhythm Strip Diag. Results EP Interpretation: yes Rhythm: NSR, no PVC's, no ectopy Chest X-Ray Diagnostic Results Chest X-Ray Diagnostic Results : Chest X-Ray Ordered: Yes # of Views/Limited/Complete: 1 View Indication: Other EP Interpretation: Yes Interpretation: no effusion, no pneumothorax, other - infiltrates, ET good, CVP in SVC Impression: Other Electronically Signed by: Carmen evaluated by me Panda Flores MD Status: improved Disposition: ADMITTED INPATIENT Condition: Critical Referrals: Rayshawn Woods MD (PCP) Panda Flores MD Jul 05, 2019 12:53
--- NOTE | 2019-07-05 13:00 | NUR ---
NURSE NOTES: BP noted 100/59, mental status improving. Pt now opens eyes to shaking and observed moving extremities and attempting to pull out ETT. Received order for bilateral soft wrist restraints for pt safety per Dr Woods. Restraints applied to bilateral wrists, radial pulses palpable, skin is intact on both wrists, no edema or redness noted.
--- NOTE | 2019-07-05 13:00 | NUR ---
NURSE NOTES: 12 lead EKG results relayed to Dr Santos. No new orders.
--- NOTE | 2019-07-05 13:30 | NUR ---
NURSE NOTES: Received order from Dr Aniyah BERRIOS to use RIJ central line per CXR results.
[2019-07-05] MEDS: Vancomycin 1.5gm/NS Premix 275 ML IVPB SCH ×2 (13:45→15:18)
[2019-07-05] MEDS ORDERED: Hydrocortisone 100mg Inj IV SCH (14:00)
[2019-07-05] MEDS ORDERED: Heparin 5000 units/ml inj SUBQ SCH (14:00)
--- NOTE | 2019-07-05 14:00 | NUR ---
NURSE NOTES: Dr Santos made aware of troponin results of 0.205. Order placed to repeat troponin in the morning (07/06 at 0400). Addendum: 07/05/19 at 1854 by Sandy Pillai RN Correct time: 6746.
--- NOTE | 2019-07-05 14:06 | NUR ---
NURSE NOTES: Left message for Dr Santos regarding troponin level of 0.205 reported by Ada from Lab at 1206. Awaiting call back. Addendum: 07/05/19 at 1854 by Sandy Pillai RN Amendment: spoke with Dr Santos over phone- also let him know D-dimer result of 35.2.
--- NOTE | 2019-07-05 14:11 | NUR ---
NURSE NOTES: Spoke with Dr Lopez, cancel STAT CBC (duplicate order).
[2019-07-05 14:23] LABS: ANION GAP 10 mmol/L (5-15); BLOOD UREA NITROGEN 37 mg/dL (7-18); CALCIUM 6.8 MG/DL (8.5-10.1); CARBON DIOXIDE 21 MMOL/L (21-32); CHLORIDE 118 MMOL/L (98-107); CREATININE 1.3 MG/DL (0.55-1.30); SODIUM 149 MMOL/L (136-145)
--- NOTE | 2019-07-05 14:27 | Internal Med Progress Note ---
Subjective Physician Name Rayshawn Woods Attending Physician Rayshawn Woods MD Current Medications Medications (Trade) Dose Ordered Sig/Genoveva Route PRN Reason Start Time Stop Time Status Last Admin Dose Admin Acetaminophen (Tylenol) 650 mg Q6H PRN ORAL Mild Pain/Temp > 100.5 07/05/19 19:30 08/03/19 07:29 UNV Albuterol/ Ipratropium (Albuterol/ Ipratropium) 3 ml Q4H PRN HHN Shortness of Breath 07/05/19 15:30 07/09/19 07:29 UNV Cefepime HCl 1 gm/ Dextrose 55 ml @ 110 mls/hr Q24H IVPB 07/05/19 21:00 07/11/19 20:59 UNV Chlorhexidine Gluconate (Alondra-Hex 2%) 1 applic DAILY@2000 TOPIC 07/05/19 20:00 08/04/19 19:59 UNV Heparin Sodium (Porcine) (Heparin 5000 units/ml) 5,000 units EVERY 8 HOURS SUBQ 07/05/19 14:00 08/03/19 13:59 UNV Hydrocortisone (Solu-CORTEF) 100 mg EVERY 8 HOURS IV 07/05/19 14:00 08/04/19 13:59 UNV Lorazepam (Ativan 2mg/ml 1ml) 2 mg Q4H PRN IV For Anxiety 07/05/19 15:15 07/12/19 11:14 UNV Metronidazole 100 ml @ 100 mls/hr Q12HR IVPB 07/05/19 21:00 07/11/19 08:59 UNV Morphine Sulfate (Morphine Sulfate) 4 mg Q4H PRN IVP For Severe Pain (6 to 10) 07/05/19 15:15 07/12/19 11:14 UNV Norepinephrine Bitartrate 4 mg/ Dextrose 250 ml @ 0 mls/hr Q24H IV 07/06/19 11:45 08/04/19 11:44 UNV Pantoprazole (Protonix) 40 mg DAILY IV 07/06/19 09:00 08/04/19 11:14 UNV Promethazine HCl/ Codeine (Phenergan with Codeine) 5 ml Q4H PRN ORAL For Cough 07/05/19 15:30 08/03/19 07:29 UNV Sodium Chloride 1,000 ml @ 100 mls/hr Q10H IV 07/05/19 14:15 08/04/19 14:14 UNV Vancomycin HCl (Vanco rx to dose) 1 ea DAILY PRN MISC Per rx protocol 07/06/19 09:00 08/03/19 08:59 UNV Vancomycin/Sodium Chloride 275 ml @ 137.5 mls/ hr ONCE ONCE IVPB 07/05/19 13:45 07/05/19 15:44 UNV Allergies: Coded Allergies: PENICILLINS (Verified Allergy, Unknown, 07/04/19) Subjective S/P code blue, transfer to ICU, intubated, Hypotension, not responsive, unable to F/U with commands. Objective Last Vital Signs Date Time Temp Pulse Resp B/P (MAP) Pulse Ox O2 Delivery O2 Flow Rate FiO2 07/05/19 12:45 105 16 55 07/05/19 12:00 Mechanical Ventilator Mechanical Ventilator Mechanical Ventilator Mechanical Ventilator 07/05/19 11:45 107/36 07/05/19 11:40 100 07/05/19 11:00 98.3 07/05/19 09:00 12.0 Laboratory Tests Test 07/04/19 16:45 07/05/19 03:50 07/05/19 10:57 07/05/19 11:30 Urine Color Pale yellow Urine Appearance Very cloudy Urine pH 5 (4.5-8.0) Urine Specific [place] 1.015 (1.005-1.035) Urine Protein 2+ (NEGATIVE) H Urine Glucose (UA) Negative (NEGATIVE) Urine Ketones Negative (NEGATIVE) Urine Blood 5+ (NEGATIVE) H Urine Nitrite Negative (NEGATIVE) Urine Bilirubin Negative (NEGATIVE) Urine Urobilinogen Normal MG/DL (0.0-1.0) Urine Leukocyte Esterase 1+ (NEGATIVE) H Urine RBC Tntc /HPF (0 - 0) H Urine WBC 5-10 /HPF (0 - 0) H Urine Squamous Epithelial Cells None /LPF (NONE/OCC) Urine Bacteria Few /HPF (NONE) Urine Eosinophils None seen (NONE SEEN) Urine Osmolality 598 mOsm/kg (429-449) H Urine Random Creatinine Pending Urine Random Microalbumin Pending Urine Random Sodium 49 mmol/L (20-110) Urine Microalbumin/Creatinine Ratio Pending White Blood Count 6.5 K/UL (4.8-10.8) Red Blood Count 3.48 M/UL (4.70-6.10) L Hemoglobin 9.7 G/DL (14.2-18.0) L Hematocrit 30.3 % (42.0-52.0) L Mean Corpuscular Volume 87 FL (80-99) Mean Corpuscular Hemoglobin 27.8 PG (27.0-31.0) Mean Corpuscular Hemoglobin Concent 32.0 G/DL (32.0-36.0) Red Cell Distribution Width 14.4 % (11.6-14.8) Platelet Count 194 K/UL (150-450) Mean Platelet Volume 7.8 FL (6.5-10.1) Neutrophils (%) (Auto) % (45.0-75.0) Lymphocytes (%) (Auto) % (20.0-45.0) Monocytes (%) (Auto) % (1.0-10.0) Eosinophils (%) (Auto) % (0.0-3.0) Basophils (%) (Auto) % (0.0-2.0) Differential Total Cells Counted 100 Neutrophils % (Manual) 90 % (45-75) H Lymphocytes % (Manual) 8 % (20-45) L Monocytes % (Manual) 2 % (1-10) Eosinophils % (Manual) 0 % (0-3) Basophils % (Manual) 0 % (0-2) Band Neutrophils 0 % (0-8) Other Cell Type Pathologist review Platelet Estimate Adequate Platelet Morphology Normal Anisocytosis 1+ Erythrocyte Sedimentation Rate 64 MM/HR (0-20) H Reticulocyte Count 0.9 % (0.5-2.0) Prothrombin Time 12.1 SEC (9.30-11.50) H Prothromb Time International Ratio 1.1 (0.9-1.1) Activated Partial Thromboplast Time 29 SEC (23-33) Sodium Level 147 MMOL/L (136-145) H Potassium Level 4.3 MMOL/L (3.5-5.1) Chloride Level 115 MMOL/L (98-107) H Carbon Dioxide Level 23 MMOL/L (21-32) Anion Gap 9 mmol/L (5-15) Blood Urea Nitrogen 40 mg/dL (7-18) H Creatinine 1.1 MG/DL (0.55-1.30) Estimat Glomerular Filtration Rate mL/min (>60) Glucose Level 90 MG/DL (74-106) Calcium Level 7.3 MG/DL (8.5-10.1) L Phosphorus Level 3.0 MG/DL (2.5-4.9) Magnesium Level 2.0 MG/DL (1.8-2.4) Iron Level 11 ug/dL (50-175) L Total Iron Binding Capacity 227 ug/dL (250-450) L Percent Iron Saturation 5 % (15-50) L Unsaturated Iron Binding 216 ug/dL (112-346) Total Bilirubin 0.3 MG/DL (0.2-1.0) Aspartate Amino Transf (AST/SGOT) 19 U/L (15-37) Alanine Aminotransferase (ALT/SGPT) 38 U/L (12-78) Alkaline Phosphatase 61 U/L (46-116) Lactate Dehydrogenase 207 U/L (81-234) Troponin I 0.000 ng/mL (0.000-0.056) Pending C-Reactive Protein, Quantitative 17.5 mg/dL (0.00-0.90) H Total Protein 6.6 G/DL (6.4-8.2) Albumin 2.7 G/DL (3.4-5.0) L Globulin 3.9 g/dL Albumin/Globulin Ratio 0.7 (1.0-2.7) L Carcinoembryonic Antigen Pending Vitamin B12 Level 1160 PG/ML (193-986) H Folate 27.0 NG/ML (8.6-58.9) Random Vancomycin Level 8.5 ug/mL Arterial Blood pH 7.097 (7.350-7.450) Arterial Blood Partial Pressure CO2 57.2 mmHg (35.0-45.0) *H Arterial Blood Partial Pressure O2 287.8 mmHg (75.0-100.0) H Arterial Blood HCO3 17.2 mmol/L (22.0-26.0) *L Arterial Blood Oxygen Saturation 99.3 % (95-100) Arterial Blood Base Excess -12.5 (-2-2) *L Phan Test Positive Test 07/05/19 12:00 07/05/19 12:45 07/05/19 12:47 D-Dimer > 35.20 mg/L FEU Troponin I 0.205 ng/mL (0.000-0.056) Sodium Level Pending Potassium Level Pending Chloride Level Pending Carbon Dioxide Level Pending Blood Urea Nitrogen Pending Creatinine Pending Estimat Glomerular Filtration Rate Pending Glucose Level Pending Calcium Level Pending Total Bilirubin Pending Aspartate Amino Transf (AST/SGOT) Pending Alanine Aminotransferase (ALT/SGPT) Pending Alkaline Phosphatase Pending Total Protein Pending Albumin Pending Globulin Pending Arterial Blood pH 7.239 (7.350-7.450) Arterial Blood Partial Pressure CO2 37.6 mmHg (35.0-45.0) Arterial Blood Partial Pressure O2 154.1 mmHg (75.0-100.0) H Arterial Blood HCO3 15.7 mmol/L (22.0-26.0) *L Arterial Blood Oxygen Saturation 98.5 % (95-100) Arterial Blood Base Excess -10.9 (-2-2) *L Phan Test Positive Microbiology Date/Time Source Procedure Growth Status 07/04/19 01:00 Blood Blood Culture - Preliminary NO GROWTH AFTER 24 HOURS Resulted 07/04/19 00:55 Blood Blood Culture - Preliminary NO GROWTH AFTER 24 HOURS Resulted 07/04/19 10:15 Sputum Gram Stain - Final Resulted 07/04/19 10:15 Sputum Sputum Culture Pending Resulted 07/04/19 01:10 Nasal Nares - Final Complete 07/04/19 01:10 Nasal Nares - Final Complete 07/04/19 01:25 Urine,Clean Catch Urine Culture - Preliminary NO GROWTH Resulted Intake and Output 07/04/19 07/05/19 19:00 07:00 Intake Total 1500.0 ml 1200 ml Output Total 800 ml 800 ml Balance 700.0 ml 400 ml IV Total 1500.0 ml 1200 ml Output Urine Total 800 ml 800 ml # Bowel Movements 2 Objective General: Intubated, unable to open eyes, unable to follow commands. HEENT: ET tube in the mouth, pupils equal reactive to the light, sluggish. Neck: Supple, no significant jugular venous distention, Lungs: Mechanical breath sounds, decreased air on the right side, no Wheeze or Rales. Heart: Regular rate and rhythm, normal S1/S2, no murmur. Abdomen: soft, nontender, mild distended. Normoactive bowel sounds. PEG site is intact. : Juan catheter. Extremities: No Cyanosis , clubbing or edema. Neuro: Limited secondary to patient status at this time, sedated. Skin: warm, no rash. Assessment/Plan Assessment/Plan 1. Acute hypoxemic respiratory failure. 2. Hypotension possible sepsis. 3. Diabetes type 2. 4. Parkinson disease. 5. Hypercholesterolemia. 6. Dilated cardiomyopathy. 7. Dysphagia. 8. Benign prostatic hypertrophy. Plan: Follow-up with the laboratory as well as culture. Chest x-ray. Continue on antibiotics: Vanco IV, cefepime IV, Flagyl IV. Start the patient on the Levophed drip for systolic blood pressure greater than 160. hydrocortisone IV. DVT prophylaxis Heparin subcu. CODE STATUS full code. We will start G-tube feeding. Follow-up with cardiology Consultation with Dr. arnoldo Santos. Follow-up Pulmonary consultation with . Rayshawn Woods MD Jul 05, 2019 14:27
[2019-07-05 14:29] LABS: ALANINE AMINOTRANSFERASE 603 U/L (12-78); ALBUMIN 2.6 G/DL (3.4-5.0); ALBUMIN/GLOBULIN RATIO 0.7 (1.0-2.7); ALKALINE PHOSPHATASE 80 U/L (46-116); ASPARTATE AMINO TRANSFERASE 605 U/L (15-37); BILIRUBIN,TOTAL 0.3 MG/DL (0.2-1.0)
--- NOTE | 2019-07-05 14:30 | NUR ---
RADIOLOGY DEPT., CHEST X-RAY DONE FOR LINE PLCMT COMPLETED.-P.DYE
--- NOTE | 2019-07-05 14:45 | Infectious Diseases Prog Note ---
Assessment/Plan Assessment/Plan Assessment: Shock s/p cardiac arrest 07/05 Sepsis Probable UTI Acute hypoxic respiratory failure ?Early pneumonia -07/05 CXR:Mild CHF -u/a wbc 5-10, nit neg, leuk +2; ucx NTD -Bcx NTD -sp cx p -CXR: No acute process -influenza sc neg -v. duplex: no DVT -V/q scan:Findings are deemed low probability for pulmonary embolus Fever; improving No leukocytosis CARA, improving Dm2 dysphagia s/p GT hx of PNA parkinson disease HTN bed bound NH resident Plan: -Continue empiric IV Vancomycin and Cefepime #2 pending cx -07/04 SP Levaquin x1 -f/u cx -Monitor CBC/CMP, temperatures -aspiration precautions -ICU/ETT/GT care -Cards, nephro f/u Thank you for this consultation. Will continue to follow along with you. Discussed with RN. Subjective Allergies: Coded Allergies: PENICILLINS (Verified Allergy, Unknown, 07/04/19) Subjective afebrile >36hrs patient became bradycardic and went into cardiac arrest now on ICU, intubated and on pressors Bcx NTD Objective Vital Signs Last 24 Hour Vital Signs Date Time Temp Pulse Resp B/P (MAP) Pulse Ox O2 Delivery O2 Flow Rate FiO2 07/05/19 12:45 105 16 55 07/05/19 12:00 55 07/05/19 12:00 Mechanical Ventilator Mechanical Ventilator Mechanical Ventilator Mechanical Ventilator 07/05/19 12:00 104 07/05/19 11:45 107/36 07/05/19 11:40 104 18 89/40 (56) 100 07/05/19 11:30 107 24 94/41 (58) 100 07/05/19 11:30 112 18 55 07/05/19 11:20 111 24 52/17 (29) 100 07/05/19 11:10 116 22 64/17 (33) 100 07/05/19 11:00 Mechanical Ventilator Mechanical Ventilator Mechanical Ventilator 07/05/19 11:00 132 07/05/19 11:00 55 07/05/19 11:00 98.3 141 18 59/33 (42) 90 07/05/19 09:00 Venturi Mask 12.0 07/05/19 08:17 80 07/05/19 08:00 12.0 07/05/19 08:00 97.6 82 18 142/78 (99) 97 07/05/19 04:00 Venturi Mask 12.0 07/05/19 04:00 78 07/05/19 04:00 12.0 07/05/19 04:00 98.2 76 24 131/62 (85) 100 07/05/19 00:00 12.0 07/05/19 00:00 98.2 89 24 100/58 (72) 100 07/05/19 00:00 Venturi Mask 12.0 07/05/19 00:00 84 07/04/19 20:00 87 07/04/19 20:00 12.0 07/04/19 20:00 98.4 87 24 135/70 (91) 100 07/04/19 20:00 Venturi Mask 12.0 07/04/19 16:00 98.5 89 20 131/86 (101) 100 07/04/19 16:00 Venturi Mask 12.0 07/04/19 16:00 12.0 07/04/19 15:26 86 Height (Feet): 5 Height (Inches): 8.00 Weight (Pounds): 158 Objective General Appearance: cachetic, thin Lines, tubes and drains: peripheral HEENT: normocephalic, atraumatic Neck: non-tender, normal alignment Respiratory/Chest: chest wall non-tender, lungs clear Breasts: no masses Cardiovascular/Chest: normal peripheral pulses, normal rate Abdomen: normal bowel sounds, non tender, hyperactive bowel sounds Genitourinary/Rectal: normal genital exam Extremities: normal range of motion Skin Exam: normal pigmentation Microbiology Date/Time Source Procedure Growth Status 07/04/19 01:00 Blood Blood Culture - Preliminary NO GROWTH AFTER 24 HOURS Resulted 07/04/19 00:55 Blood Blood Culture - Preliminary NO GROWTH AFTER 24 HOURS Resulted 07/04/19 10:15 Sputum Gram Stain - Final Resulted 07/04/19 10:15 Sputum Sputum Culture Pending Resulted 07/04/19 01:10 Nasal Nares - Final Complete 07/04/19 01:10 Nasal Nares - Final Complete 07/04/19 01:25 Urine,Clean Catch Urine Culture - Preliminary NO GROWTH Resulted Laboratory Tests Test 07/04/19 16:45 07/05/19 03:50 07/05/19 10:57 07/05/19 11:30 Urine Color Pale yellow Urine Appearance Very cloudy Urine pH 5 (4.5-8.0) Urine Specific [place] 1.015 (1.005-1.035) Urine Protein 2+ (NEGATIVE) H Urine Glucose (UA) Negative (NEGATIVE) Urine Ketones Negative (NEGATIVE) Urine Blood 5+ (NEGATIVE) H Urine Nitrite Negative (NEGATIVE) Urine Bilirubin Negative (NEGATIVE) Urine Urobilinogen Normal MG/DL (0.0-1.0) Urine Leukocyte Esterase 1+ (NEGATIVE) H Urine RBC Tntc /HPF (0 - 0) H Urine WBC 5-10 /HPF (0 - 0) H Urine Squamous Epithelial Cells None /LPF (NONE/OCC) Urine Bacteria Few /HPF (NONE) Urine Eosinophils None seen (NONE SEEN) Urine Osmolality 598 mOsm/kg (429-449) H Urine Random Creatinine Pending Urine Random Microalbumin Pending Urine Random Sodium 49 mmol/L (20-110) Urine Microalbumin/Creatinine Ratio Pending White Blood Count 6.5 K/UL (4.8-10.8) Red Blood Count 3.48 M/UL (4.70-6.10) L Hemoglobin 9.7 G/DL (14.2-18.0) L Hematocrit 30.3 % (42.0-52.0) L Mean Corpuscular Volume 87 FL (80-99) Mean Corpuscular Hemoglobin 27.8 PG (27.0-31.0) Mean Corpuscular Hemoglobin Concent 32.0 G/DL (32.0-36.0) Red Cell Distribution Width 14.4 % (11.6-14.8) Platelet Count 194 K/UL (150-450) Mean Platelet Volume 7.8 FL (6.5-10.1) Neutrophils (%) (Auto) % (45.0-75.0) Lymphocytes (%) (Auto) % (20.0-45.0) Monocytes (%) (Auto) % (1.0-10.0) Eosinophils (%) (Auto) % (0.0-3.0) Basophils (%) (Auto) % (0.0-2.0) Differential Total Cells Counted 100 Neutrophils % (Manual) 90 % (45-75) H Lymphocytes % (Manual) 8 % (20-45) L Monocytes % (Manual) 2 % (1-10) Eosinophils % (Manual) 0 % (0-3) Basophils % (Manual) 0 % (0-2) Band Neutrophils 0 % (0-8) Other Cell Type Pathologist review Platelet Estimate Adequate Platelet Morphology Normal Anisocytosis 1+ Erythrocyte Sedimentation Rate 64 MM/HR (0-20) H Reticulocyte Count 0.9 % (0.5-2.0) Prothrombin Time 12.1 SEC (9.30-11.50) H Prothromb Time International Ratio 1.1 (0.9-1.1) Activated Partial Thromboplast Time 29 SEC (23-33) Sodium Level 147 MMOL/L (136-145) H Potassium Level 4.3 MMOL/L (3.5-5.1) Chloride Level 115 MMOL/L (98-107) H Carbon Dioxide Level 23 MMOL/L (21-32) Anion Gap 9 mmol/L (5-15) Blood Urea Nitrogen 40 mg/dL (7-18) H Creatinine 1.1 MG/DL (0.55-1.30) Estimat Glomerular Filtration Rate mL/min (>60) Glucose Level 90 MG/DL (74-106) Calcium Level 7.3 MG/DL (8.5-10.1) L Phosphorus Level 3.0 MG/DL (2.5-4.9) Magnesium Level 2.0 MG/DL (1.8-2.4) Iron Level 11 ug/dL (50-175) L Total Iron Binding Capacity 227 ug/dL (250-450) L Percent Iron Saturation 5 % (15-50) L Unsaturated Iron Binding 216 ug/dL (112-346) Total Bilirubin 0.3 MG/DL (0.2-1.0) Aspartate Amino Transf (AST/SGOT) 19 U/L (15-37) Alanine Aminotransferase (ALT/SGPT) 38 U/L (12-78) Alkaline Phosphatase 61 U/L (46-116) Lactate Dehydrogenase 207 U/L (81-234) Troponin I 0.000 ng/mL (0.000-0.056) Pending C-Reactive Protein, Quantitative 17.5 mg/dL (0.00-0.90) H Total Protein 6.6 G/DL (6.4-8.2) Albumin 2.7 G/DL (3.4-5.0) L Globulin 3.9 g/dL Albumin/Globulin Ratio 0.7 (1.0-2.7) L Carcinoembryonic Antigen Pending Vitamin B12 Level 1160 PG/ML (193-986) H Folate 27.0 NG/ML (8.6-58.9) Random Vancomycin Level 8.5 ug/mL Arterial Blood pH 7.097 (7.350-7.450) Arterial Blood Partial Pressure CO2 57.2 mmHg (35.0-45.0) *H Arterial Blood Partial Pressure O2 287.8 mmHg (75.0-100.0) H Arterial Blood HCO3 17.2 mmol/L (22.0-26.0) *L Arterial Blood Oxygen Saturation 99.3 % (95-100) Arterial Blood Base Excess -12.5 (-2-2) *L Phan Test Positive Test 07/05/19 12:00 07/05/19 12:45 07/05/19 12:47 D-Dimer > 35.20 mg/L FEU Troponin I 0.205 ng/mL (0.000-0.056) Sodium Level 149 MMOL/L (136-145) H Potassium Level 5.0 MMOL/L (3.5-5.1) Chloride Level 118 MMOL/L (98-107) H Carbon Dioxide Level 21 MMOL/L (21-32) Anion Gap 10 mmol/L (5-15) Blood Urea Nitrogen 37 mg/dL (7-18) H Creatinine 1.3 MG/DL (0.55-1.30) Estimat Glomerular Filtration Rate mL/min (>60) Glucose Level 142 MG/DL (74-106) H Calcium Level 6.8 MG/DL (8.5-10.1) L Total Bilirubin 0.3 MG/DL (0.2-1.0) Aspartate Amino Transf (AST/SGOT) 605 U/L (15-37) H Alanine Aminotransferase (ALT/SGPT) 603 U/L (12-78) H Alkaline Phosphatase 80 U/L (46-116) Total Protein 6.2 G/DL (6.4-8.2) L Albumin 2.6 G/DL (3.4-5.0) L Globulin 3.6 g/dL Albumin/Globulin Ratio 0.7 (1.0-2.7) L Arterial Blood pH 7.239 (7.350-7.450) Arterial Blood Partial Pressure CO2 37.6 mmHg (35.0-45.0) Arterial Blood Partial Pressure O2 154.1 mmHg (75.0-100.0) H Arterial Blood HCO3 15.7 mmol/L (22.0-26.0) *L Arterial Blood Oxygen Saturation 98.5 % (95-100) Arterial Blood Base Excess -10.9 (-2-2) *L Phan Test Positive Current Medications Medications (Trade) Dose Ordered Sig/Genoveva Route PRN Reason Start Time Stop Time Status Last Admin Dose Admin Acetaminophen (Tylenol) 650 mg Q6H PRN ORAL Mild Pain/Temp > 100.5 07/05/19 15:00 08/03/19 14:59 Albuterol/ Ipratropium (Albuterol/ Ipratropium) 3 ml Q4H PRN HHN Shortness of Breath 07/05/19 15:30 07/09/19 07:29 Cefepime HCl 1 gm/ Dextrose 55 ml @ 110 mls/hr Q24H IVPB 07/05/19 21:00 07/11/19 20:59 Chlorhexidine Gluconate (Alondra-Hex 2%) 1 applic DAILY@2000 TOPIC 07/05/19 20:00 08/04/19 19:59 Heparin Sodium (Porcine) (Heparin 5000 units/ml) 5,000 units EVERY 8 HOURS SUBQ 07/05/19 14:30 08/03/19 14:29 Hydrocortisone (Solu-CORTEF) 100 mg EVERY 8 HOURS IV 07/05/19 14:30 08/04/19 14:29 Lorazepam (Ativan 2mg/ml 1ml) 2 mg Q4H PRN IV For Anxiety 07/05/19 15:15 07/12/19 11:14 Metronidazole 100 ml @ 100 mls/hr Q12HR IVPB 07/05/19 21:00 07/11/19 08:59 Morphine Sulfate (Morphine Sulfate) 4 mg Q4H PRN IVP For Severe Pain (6 to 10) 07/05/19 15:15 07/12/19 11:14 Norepinephrine Bitartrate 4 mg/ Dextrose 250 ml @ 0 mls/hr Q24H IV 07/06/19 15:30 08/04/19 15:29 Pantoprazole (Protonix) 40 mg DAILY IV 07/06/19 09:00 08/04/19 11:14 Promethazine HCl/ Codeine (Phenergan with Codeine) 5 ml Q4H PRN ORAL For Cough 07/05/19 15:30 08/03/19 07:29 Sodium Chloride 1,000 ml @ 100 mls/hr Q10H IV 07/05/19 15:00 08/04/19 14:59 Vancomycin HCl (Vanco rx to dose) 1 ea DAILY PRN MISC Per rx protocol 07/06/19 09:00 08/03/19 08:59 Vancomycin/Sodium Chloride 275 ml @ 137.5 mls/ hr ONCE IVPB 07/05/19 13:45 07/05/19 16:00 Mirian Page M.D. Jul 05, 2019 14:45
[2019-07-05] MEDS: Hydrocortisone 100mg Inj IV SCH ×2 (14:46→21:23)
--- NOTE | 2019-07-05 15:00 | NUR ---
Spoke to Dr Lopez over phone and updated him with recent ABG results (pH 7.239 Bicarb 15.7 Phan test -10.9). New Vent orders received: AC 20 TV 7000 FiO2 45% Peep 5. RT notified and vent settings changed. Addendum: 07/05/19 at 1925 by Sandy Pillai RN Correction: ABG base exceeds -10.9
--- NOTE | 2019-07-05 15:34 | NUR ---
RD ASSESSMENT & RECOMMENDATIONS SEE CARE ACTIVITY FOR COMPLETE ASSESSMENT DAILY ESTIMATED NEEDS: Needs based on Critical care, wound/ 67.7kg 22-28 kcals/kg 9475-8525 total kcals 1.25-2 g protein/kg 85-135 g total protein 25-30 mL/kg 7273-4921 total fluid mLs NUTRITION DIAGNOSIS: * Increased kcal/prot needs R/T wound healing as evidenced by pt admitted w/ resolving full thickness wound @ sacrum and non-blanching erythema @ BL heels. 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 CURRENT DIET:NPO PO DIET RECOMMENDATIONS: [place] EVAL POST EXTUBATION (if PO still indicated)-> CCHO MED, LOW NA ENTERAL NUTRITION RECOMMENDATIONS: Vital AF 1.2 @ 60ml/hr x 24 hrs to provide 1440ml, 1728kcal, 108g prot, 1167ml free water * WITH HEMODYNAMIC STABILITY: -> Initiate Vital AF 1.2 @ 10ml/hr x 6 hrs, advance 10ml q 4-6 hrs as tolerated to goal rate. -> HOB over 30 degrees/ H2O flush per MD WITHOUT HEMODYNAMIC STABILITY : rec trophic feeding of Vital AF 1.2 @ 10ml/hr x 24 hrs ADDITIONAL RECOMMENDATIONS: * Per SNF: HT=67" [id number] (As of Jun 10, 2019) * Monitor hemodynamic stability * Monitor K closely, need for TF change (K 5.9 -> 5.0) * NISS w/ TF: h/o DM, elev BGs * Wound healing: add Vit C 250mg QD + Dipak 1pkt BID w/ TF .
--- NOTE | 2019-07-05 15:38 | Consultation ---
Consult Note Consult Note asked to eval at the request of Dr Woods Patient seen in ICU- Discussed with nurse Patient transfered earlier after code blue - Now intubated and low BP admitting Dx from ER: Sepsis Respiratory failure with hypoxia Anemia Proteinuria UTI (urinary tract infection) RIA (acute kidney injury) examined data reviewed intubated . Assessment/Plan patient have Ria due to Low BP and s/p arrest elevated liver enzymes for same reason others: 1. Acute hypoxemic respiratory failure. 2. Hypotension possible sepsis. 3. Diabetes type 2. 4. Parkinson disease. 5. Hypercholesterolemia. 6. EjFx 65% reported 7. Dysphagia. 8. Benign prostatic hypertrophy. Plan: keep BP above 100 syst Pulm support monitor renal parameters [place]: Moderate left hydronephrosis. Juan catheter. Echogenic right kidney. Suspected medical renal disease. Oskar Mohr MD Jul 05, 2019 15:38
--- NOTE | 2019-07-05 15:39 | Diagnostic Imaging Report ---
Indication: Dyspnea Comparison: 07/05/2019 at 11:35 A single view chest radiograph was obtained. Findings: Right jugular line is projected over the SVC in good position. Cardiomegaly is stable. Endotracheal tube is stable. Lungs are essentially clear. IMPRESSION: Right central line placement good position. No pneumothorax. No significant change.
--- NOTE | 2019-07-05 16:00 | NUR ---
NURSE NOTES: Pt repositioned and suctioned. oral care performed. 1 small, formed brown BM noted in bhumika pad. OBS collected. BP now 98/61. No acute distress noted. Pt is now opening eyes spontaneously. Pt's Sonia at bedside.
--- NOTE | 2019-07-05 16:10 | NUR ---
NURSE NOTES: Dr Mohr at bedside assessing pt.
--- NOTE | 2019-07-05 16:15 | Consultation ---
DATE OF CONSULTATION: 07/05/2019 CARDIOLOGY CONSULTATION CONSULTING PHYSICIAN: Enio Santos M.D. REFERRING PHYSICIAN: Rayshawn Woods M.D. REASON FOR CONSULTATION: Status post bradycardic arrest as well as hypotension, respiratory failure. HISTORY OF PRESENT ILLNESS: The patient is an 83-year-old gentleman with history of hypertension, diabetes, history of dilated cardiomyopathy, hyperlipidemia, Parkinson disease, and benign prostatic hypertrophy who was transferred from [facility] for being increasingly short of breath. The patient at baseline is nonverbal. The patient was admitted initially to step-down and then transferred to telemetry. The patient had a sudden episode of bradycardia with heart rate dropping to 20 and the patient was completely unresponsive. A code was called and the patient was intubated. The patient was then brought to intensive care unit. At the time of my evaluation, the patient just arrived in the ICU and was intubated and the blood pressure in the 50s. REVIEW OF SYSTEMS: Cannot be obtained. PAST MEDICAL HISTORY: As mentioned above. ALLERGIES: He is allergic to penicillin. SOCIAL HISTORY: He lives at [facility]. He is . No history of smoking or drinking alcohol. PHYSICAL EXAMINATION: VITAL SIGNS: Blood pressure is 60 over palpable. Pulse is 140. His telemetry strip showed bradycardia, heart rate in the 20s as well as nonsustained ventricular tachycardia. HEAD AND NECK: He is orally intubated. Positive JVD. LUNGS: Decreased breath sounds. CARDIOVASCULAR: Tachycardic. ABDOMEN: Status post G-tube. EXTREMITIES: No pitting edema. LABORATORY AND DIAGNOSTIC DATA: Labs show white count of 6.5, hemoglobin 9.7, hematocrit 30, and platelet count of 194. Sodium 147, potassium is 4.3, BUN of 40, creatinine 1.1, and glucose of 90. His first troponin is negative. His telemetry strip showed bradycardia with heart rate dropping to 20 as well as nonsustained ventricular tachycardia. ASSESSMENT AND PLAN: 1. Status post bradycardic arrest with heart rate in the 20s. The patient is not on any sinus node or AV destinee blocking agents. 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 The first two troponins on admission were negative. We will completely rule out UT protocol and get a stat echocardiogram for further evaluation. 2. Respiratory failure, currently intubated on the ventilator. 3. The patient is already on broad-spectrum IV antibiotic with vancomycin, cefepime, and Flagyl. 4. Hypotension. Start the patient on the Levophed. However, needs central line placement. Decrease the patient's IV fluid to D5 half NS as the patient has hypernatremia. 5. Dehydration, hyponatremia. We will decrease IV fluids. 6. Dysphagia, status post PEG placement. 7. Diabetes. 8. Benign prostatic hypertrophy. Thank you very much, Dr. Woods, for allowing me to participate in the care of this patient. Please do not hesitate to contact me for any questions regarding my evaluation. Enio Santos M.D. DR: MARY ELLEN JOB#: [id number] CC:
--- NOTE | 2019-07-05 16:45 | NUR ---
NURSE NOTES: Dr Callejas at bedside assessing pt.
--- NOTE | 2019-07-05 18:00 | NUR ---
Pt's BP now 133/53. No acute distress noted. Pt still opens eyes spontaneously.
--- NOTE | 2019-07-05 19:13 | NUR ---
HAND-OFF: Report given to VIRGIL Lovett. Pt now openes eyes spontaneously and when called by name. BP noted 134/48. No acute distress noted.
--- NOTE | 2019-07-05 19:14 | NUR ---
NURSE NOTES: Endorsement received from VIRGIL Delgado. Patient opens eyes spontaneously, does not track. Withdraws to pain. Orally intubated with 7.5, 24 lipline. AC 20, 700, 45% FiO2. With left EJ g18 heplock, right forearm g22, right IJ TLC. NS at 100ml/hr. With bilateral soft wrists restraints. Skin normal in color, warm and dry. GT present. On NPO. Juan catheter draining to urimeter. Head of bed elevated. Call light within reach. Bed alarm on. Bed locked and in low position.
--- NOTE | 2019-07-05 19:22 | NUR ---
NURSE NOTES: Called Dr. Santos for the troponin results. Left a message.
[2019-07-05] MEDS: Dyna-Hex 2% Top Sol 2oz TOPIC SCH (19:29)
[2019-07-05] MEDS ORDERED: Dyna-Hex 2% Top Sol 2oz TOPIC SCH (20:00)
--- NOTE | 2019-07-05 20:45 | Consultation ---
DATE OF CONSULTATION: 07/05/2019 CONSULTING PHYSICIAN: Clayton Callejas M.D. REFERRING PHYSICIAN: Rayshawn Woods M.D. REASON FOR CONSULTATION: For evaluation of hydronephrosis. HISTORY OF PRESENT ILLNESS: This is an 83-year-old gentleman that was originally admitted to the hospital because of shortness of breath. He is a resident of a half-way facility. Apparently, he was noted to have mild acute kidney injury and he had a workup including a renal ultrasound, which showed left-sided hydronephrosis and Urology evaluation is requested. Earlier this morning, the patient was on the tele floor; however, he coded and he is currently in the intensive care unit, intubated and unresponsive and as such, most of the rest of the history was obtained from the chart. PAST MEDICAL HISTORY: Significant for history of Parkinson disease, diabetes, hypercholesteremia, coronary artery disease, cardiomyopathy, hypertension, BPH. PAST SURGICAL HISTORY: He had a PEG placement. Other surgeries are unknown. MEDICATIONS: Current medication list was reviewed. He is currently on cefepime, Flagyl, Protonix, Phenergan, Ativan, morphine, Tylenol, Solu-Cortef. ALLERGIES: To penicillin. SOCIAL HISTORY: He is a resident of a [facility]. REVIEW OF SYSTEMS: Unable to obtain. FAMILY HISTORY: Unable to obtain. PHYSICAL EXAMINATION: GENERAL: Elderly male on a vent. Nonresponsive. VITAL SIGNS: Temperature is 98.3, his blood pressure is 95/61, pulse is 92, respirations 18. He is currently off pressors. He is on a ventilator. ABDOMEN: Soft. G-tube is in place. GENITOURINARY: He has a Juan catheter in place. Urine is yellowish kristen. LABORATORY DATA: His BUN is currently 37 with a creatinine of 1.3. He did have a creatinine of 1.6 on admission. His white count is 6.5, hemoglobin 9.7, platelets of 194. UA on admission showed 2+ protein, too numerous to count rbc's, 5 to 10 wbc's. His urine culture from yesterday is thus far negative. Blood cultures are still negative. DIAGNOSTIC IMAGING STUDIES: Again, the patient had a renal ultrasound earlier today. There was mention of moderate left-sided hydronephrosis. There was a mention of echogenic right kidney, suspect medical renal disease. IMPRESSION: 1. Left-sided hydronephrosis. 2. Proteinuria. 3. Hematuria. 4. Pyuria. 5. Urinary retention. 6. BPH history. 7. Rule out neurogenic bladder. 8. Mild acute kidney injury, which is now improved. PLAN AND DISCUSSION: Again as noted above, the patient did have left-sided hydronephrosis, which was reported on renal ultrasound. He did have mild acute kidney injury, which is better. He will need to have further workup for the hydronephrosis with a CT scan of the abdomen and pelvis and hopefully this can be done in the next few days once he is more clinically stabilized. For now, he will be monitored clinically. His Juan catheter is to remain indwelling. His renal function will be monitored. He is on antibiotics as ordered. Any further recommendations forthcoming. Thank you, Dr. Woods, for asking me to see this patient in consultation. Clayton Callejas M.D. DR: JOANNE JOB#: [id number] CC:
[2019-07-05] MEDS: Pantoprazole Inj IV SCH (20:46)
[2019-07-05] MEDS: Cefepime HCl 1 GM in D5W 55 ML IVPB SCH (20:47)
[2019-07-05] MEDS ORDERED: Cefepime HCl 1 GM in D5W 55 ML IVPB SCH (21:00)
--- NOTE | 2019-07-05 21:30 | NUR ---
NURSE NOTES: Temperature 100.7. PRN Tylenol given. Cooling measures initiated.
--- NOTE | 2019-07-05 23:00 | NUR ---
NURSE NOTES: Secretions suctioned. Temperature 99.9.
[2019-07-06] VITALS (25 sets, daily range): BP systolic 115–155; BP diastolic 44–79
--- NOTE | 2019-07-06 01:00 | NUR ---
NURSE NOTES: Noted with copious secretion, suctioned patient.
--- NOTE | 2019-07-06 03:00 | NUR ---
NURSE NOTES: Bed bath, oral care, change of linens done. Patient on P200 mattress.
--- NOTE | 2019-07-06 05:00 | NUR ---
NURSE NOTES: Patient asleep. Afebrile
[2019-07-06] MEDS: Hydrocortisone 100mg Inj IV SCH ×3 (05:28→21:21)
[2019-07-06] MEDS: Heparin 5000 units/ml inj SUBQ SCH ×2 (05:29→14:04)
[2019-07-06 05:59] LABS: HEMATOCRIT 29.6 % (42.0-52.0); HEMOGLOBIN 9.6 G/DL (14.2-18.0); MEAN CORPUSCULAR VOLUME 85 FL (80-99); PLATELET COUNT 157 K/UL (150-450); RED BLOOD COUNT 3.47 M/UL (4.70-6.10); WHITE BLOOD COUNT 6.1 K/UL (4.8-10.8)
[2019-07-06 06:43] LABS: ALANINE AMINOTRANSFERASE 588 U/L (12-78); ALBUMIN 2.6 G/DL (3.4-5.0); ALBUMIN/GLOBULIN RATIO 0.7 (1.0-2.7); ALKALINE PHOSPHATASE 73 U/L (46-116); ANION GAP 10 mmol/L (5-15); ASPARTATE AMINO TRANSFERASE 426 U/L (15-37); BILIRUBIN,TOTAL 0.4 MG/DL (0.2-1.0); BLOOD UREA NITROGEN 37 mg/dL (7-18); CALCIUM 7.4 MG/DL (8.5-10.1); CARBON DIOXIDE 21 MMOL/L (21-32); CHLORIDE 116 MMOL/L (98-107); CREATININE 1.5 MG/DL (0.55-1.30); POTASSIUM 3.8 MMOL/L (3.5-5.1); SODIUM 147 MMOL/L (136-145)
[2019-07-06 06:46] LABS: CHOLESTEROL 98 MG/DL (< 200); HDL CHOLESTEROL 44 MG/DL (40-60); PHOSPHORUS 2.2 MG/DL (2.5-4.9); TRIGLYCERIDES 36 MG/DL (30-150)
--- NOTE | 2019-07-06 07:00 | NUR ---
RESPIRATORY NOTES: Received Patient on Vent settings RR 20, VT 700, FIO2 45%, PEEP +0. Patient intubated with 7.5 ETT at 23cm at the lip, secured with anchor fast. Suctioned small amount of white/ clear secretions through endotracheal tube. Patient awake but does not respond to commands. Vent plugged into red outlet. Alarms are on and audible. Will continue to monitor throughout the day.
--- NOTE | 2019-07-06 07:05 | NUR ---
HAND-OFF: Report given to Yvonne
--- NOTE | 2019-07-06 07:10 | NUR ---
NURSE NOTES: Endorsement received from VIRGIL Lovett. Patient opens eyes spontaneously, does not track, withdraws to pain. Orally intubated with ETT 7.5, 24cm @ the lipline. AC 20, 700, 45% FiO2, 0 PEEP; O2Sat 100%. Left EJ 18g, Right forearm 22g, and Right IJ TLC; running NS at 100ml/hr. NSR on classroom monitor. Pt received and maintained on bilateral soft wrists restraints for safety. GT present- NPO. Juan catheter draining yellow urine to urometer. Head of bed elevated. Bed alarm on. Bed locked and in lowest position with call light within reach. Will resume plan of care.
[2019-07-06] MEDS: Pantoprazole Inj IV SCH ×2 (08:07→20:16)
--- NOTE | 2019-07-06 08:15 | NUR ---
NURSE NOTES: Pt is being more alert, responsive to name, tracking with his eyes and able to follow simple commands when asked to squeeze writers hand with each of patient's hands, and even smiled at fiction writer when fiction writer said "good morning, Mr Hernandez".
[2019-07-06] MEDS ORDERED: Pantoprazole Inj IV SCH (09:00)
--- NOTE | 2019-07-06 09:05 | Urology Progress Note ---
Assessment/Plan Assessment/Plan: 1. Left-sided hydronephrosis. 2. Proteinuria. 3. Hematuria. 4. Pyuria. 5. Urinary retention. 6. BPH history. 7. Rule out neurogenic bladder. 8. Mild acute kidney injury. monitor clinically maintain nixon hand irrigated and do PRN abx as ordered f/u on cx's plan CT A/P once more medically stabilized monitor renal fxn d/w nursing staff Subjective Allergies: Coded Allergies: PENICILLINS (Verified Allergy, Unknown, 07/04/19) Subjective all noted, remains on vent Objective Last 24 Hour Vital Signs Date Time Temp Pulse Resp B/P (MAP) Pulse Ox O2 Delivery O2 Flow Rate FiO2 07/06/19 08:54 65 20 45 07/06/19 08:00 70 6 150/71 (97) 100 07/06/19 08:00 45 07/06/19 08:00 Mechanical Ventilator Mechanical Ventilator Mechanical Ventilator Mechanical Ventilator 07/06/19 07:30 99.1 75 17 151/54 (86) 100 07/06/19 07:29 76 20 45 07/06/19 07:00 69 16 145/54 (84) 100 07/06/19 06:00 69 14 144/53 (83) 100 07/06/19 05:49 72 12 07/06/19 05:36 68 20 45 07/06/19 05:00 71 20 141/62 (88) 100 07/06/19 04:00 65 07/06/19 04:00 99.7 74 18 146/56 (86) 100 07/06/19 04:00 Mechanical Ventilator Mechanical Ventilator Mechanical Ventilator Mechanical Ventilator 07/06/19 04:00 45 07/06/19 03:35 66 20 45 07/06/19 03:00 71 20 141/54 (83) 100 07/06/19 02:00 99.7 79 17 126/44 (71) 100 07/06/19 01:46 82 20 45 07/06/19 01:00 73 19 152/58 (89) 100 07/06/19 00:00 45 07/06/19 00:00 73 07/06/19 00:00 Mechanical Ventilator Mechanical Ventilator Mechanical Ventilator Mechanical Ventilator 07/06/19 00:00 74 20 152/57 (88) 100 07/05/19 23:41 71 20 45 1/31/20 23:00 99.9 75 18 145/69 (94) 100 07/05/19 22:30 99.9 07/05/19 22:00 100.7 77 20 137/56 (83) 100 07/05/19 21:48 80 20 45 07/05/19 21:30 81 20 144/60 (88) 100 07/05/19 21:00 82 18 134/73 (93) 100 07/05/19 20:00 81 07/05/19 20:00 Mechanical Ventilator Mechanical Ventilator Mechanical Ventilator Mechanical Ventilator 07/05/19 20:00 45 07/05/19 20:00 99.7 84 20 145/53 (83) 100 07/05/19 19:13 81 20 45 07/05/19 19:00 82 20 134/48 (76) 100 07/05/19 18:00 83 20 133/53 (79) 100 07/05/19 17:00 86 20 118/89 (99) 86 07/05/19 16:43 87 20 45 07/05/19 16:00 98.7 91 20 112/65 (81) 98 07/05/19 16:00 89 07/05/19 16:00 Mechanical Ventilator Mechanical Ventilator Mechanical Ventilator Mechanical Ventilator 07/05/19 15:00 91 20 98/58 (71) 99 07/05/19 14:55 45 07/05/19 14:55 89 20 45 07/05/19 14:20 92 18 95/61 (72) 98 07/05/19 14:15 93 18 86/56 (66) 95 07/05/19 14:00 93 17 88/51 (63) 95 07/05/19 13:00 103 31 100/59 (73) 100 07/05/19 12:45 105 16 55 07/05/19 12:00 55 07/05/19 12:00 103 31 98/33 (54) 100 07/05/19 12:00 Mechanical Ventilator Mechanical Ventilator Mechanical Ventilator Mechanical Ventilator 07/05/19 12:00 104 07/05/19 11:45 107/36 07/05/19 11:40 104 18 89/40 (56) 100 07/05/19 11:30 107 24 94/41 (58) 100 07/05/19 11:30 112 18 55 07/05/19 11:20 111 24 52/17 (29) 100 07/05/19 11:10 116 22 64/17 (33) 100 07/05/19 11:00 Mechanical Ventilator Mechanical Ventilator Mechanical Ventilator 07/05/19 11:00 123 21 100 07/05/19 11:00 132 07/05/19 11:00 55 07/05/19 11:00 98.3 141 18 59/33 (42) 90 Intake and Output 07/05/19 07/06/19 19:00 07:00 Intake Total 1886.92739 ml 1355 ml Output Total 725 ml 600 ml Balance 1161.81408 ml 755 ml IV Total 1886.90057 ml 1355 ml Output Urine Total 725 ml 600 ml # Bowel Movements 2 Microbiology Date/Time Source Procedure Growth Status 07/04/19 01:00 Blood Blood Culture - Preliminary NO GROWTH AFTER 48 HOURS Resulted 07/04/19 10:15 Sputum Gram Stain - Final Complete 07/04/19 10:15 Sputum Culture - Final Nicolle Albicans Usual Respiratory Valery Complete 07/04/19 01:25 Urine,Clean Catch Urine Culture - Preliminary NO GROWTH AFTER 24 HOURS Resulted Current Medications Medications (Trade) Dose Ordered Sig/Genoveva Route PRN Reason Start Time Stop Time Status Last Admin Dose Admin Acetaminophen (Tylenol) 650 mg Q6H PRN ORAL Mild Pain/Temp > 100.5 07/05/19 15:00 08/03/19 14:59 07/05/19 21:22 Albuterol/ Ipratropium (Albuterol/ Ipratropium) 3 ml Q4H PRN HHN Shortness of Breath 07/05/19 15:30 07/09/19 07:29 Cefepime HCl 1 gm/ Dextrose 55 ml @ 110 mls/hr Q24H IVPB 07/05/19 21:00 07/11/19 20:59 07/05/19 20:47 Chlorhexidine Gluconate (Alondra-Hex 2%) 1 applic DAILY@1999 TOPIC 07/05/19 20:00 08/04/19 19:59 07/05/19 19:29 Heparin Sodium (Porcine) (Heparin 5000 units/ml) 5,000 units EVERY 8 HOURS SUBQ 07/05/19 14:30 08/03/19 14:29 07/06/19 05:29 Hydrocortisone (Solu-CORTEF) 100 mg EVERY 8 HOURS IV 07/05/19 14:30 08/04/19 14:29 07/06/19 05:28 Lorazepam (Ativan 2mg/ml 1ml) 2 mg Q4H PRN IV For Anxiety 07/05/19 15:15 07/12/19 11:14 Metronidazole 100 ml @ 100 mls/hr Q12HR IVPB 07/05/19 21:00 07/11/19 08:59 07/06/19 08:08 Morphine Sulfate (Morphine Sulfate) 4 mg Q4H PRN IVP For Severe Pain (6 to 10) 07/05/19 15:15 07/12/19 11:14 Norepinephrine Bitartrate 4 mg/ Dextrose 250 ml @ 0 mls/hr Q24H IV 07/06/19 15:30 08/04/19 15:29 Pantoprazole (Protonix) 40 mg Q12HR IV 07/05/19 21:00 08/04/19 11:14 07/06/19 08:07 Promethazine HCl/ Codeine (Phenergan with Codeine) 5 ml Q4H PRN ORAL For Cough 07/05/19 15:30 08/03/19 07:29 Sodium Chloride 1,000 ml @ 100 mls/hr Q10H IV 07/05/19 15:00 08/04/19 14:59 07/06/19 01:46 Vancomycin HCl (Vanco rx to dose) 1 ea DAILY PRN MISC Per rx protocol 07/06/19 09:00 08/03/19 08:59 Laboratory Tests 07/05/19 10:57: Arterial Blood pH 7.097*L, Arterial Blood Partial Pressure CO2 57.2*H, Arterial Blood Partial Pressure O2 287.8H, Arterial Blood HCO3 17.2*L, Arterial Blood Oxygen Saturation 99.3, Arterial Blood Base Excess -12.5*L, Phan Test Positive 07/05/19 12:00: D-Dimer > 35.20H, Troponin I 0.205H 07/05/19 12:45: Sodium Level 149H, Potassium Level 5.0, Chloride Level 118H, Carbon Dioxide Level 21, Anion Gap 10, Blood Urea Nitrogen 37H, Creatinine 1.3, Estimat Glomerular Filtration Rate , Glucose Level 142H, Calcium Level 6.8L, Total Bilirubin 0.3, Aspartate Amino Transf (AST/SGOT) 605H, Alanine Aminotransferase (ALT/SGPT) 603H, Alkaline Phosphatase 80, Total Protein 6.2L, Albumin 2.6L, Globulin 3.6, Albumin/Globulin Ratio 0.7L 07/05/19 12:47: Arterial Blood pH 7.239*L, Arterial Blood Partial Pressure CO2 37.6, Arterial Blood Partial Pressure O2 154.1H, Arterial Blood HCO3 15.7*L, Arterial Blood Oxygen Saturation 98.5, Arterial Blood Base Excess -10.9*L, Phan Test Positive 07/05/19 16:30: Stool Occult Blood Positive 07/05/19 18:40: Troponin I 0.474H 07/06/19 04:00: Troponin I 0.295H, White Blood Count 6.1, Red Blood Count 3.47L, Hemoglobin 9.6L , Hematocrit 29.6L, Mean Corpuscular Volume 85, Mean Corpuscular Hemoglobin 27.5 , Mean Corpuscular Hemoglobin Concent 32.3, Red Cell Distribution Width 14.0, Platelet Count 157, Mean Platelet Volume 7.2, Neutrophils (%) (Auto) , Lymphocytes (%) (Auto) , Monocytes (%) (Auto) , Eosinophils (%) (Auto) , Basophils (%) (Auto) , Neutrophils % (Manual) [Pending], Lymphocytes % (Manual) [Pending], Platelet Estimate [Pending], Platelet Morphology [Pending], Sodium Level 147H, Potassium Level 3.8, Chloride Level 116H, Carbon Dioxide Level 21, Anion Gap 10, Blood Urea Nitrogen 37H, Creatinine 1.5H, Estimat Glomerular Filtration Rate , Glucose Level 155H, Hemoglobin A1c 6.1H, Uric Acid [Pending], Calcium Level 7.4L, Phosphorus Level 2.2L, Magnesium Level 1.8, Iron Level [ Pending], Unsaturated Iron Binding [Pending], Ferritin [Pending], Total Bilirubin 0.4, Gamma Glutamyl Transpeptidase [Pending], Aspartate Amino Transf ( AST/SGOT) 426H, Alanine Aminotransferase (ALT/SGPT) 588H, Alkaline Phosphatase 73, Total Creatine Kinase [Pending], Pro-B-Type Natriuretic Peptide 2394H, Total Protein 6.5, Albumin 2.6L, Globulin 3.9, Albumin/Globulin Ratio 0.7L, Triglycerides Level 36, Cholesterol Level 98, LDL Cholesterol 42, HDL Cholesterol 44, Cholesterol/HDL Ratio 2.2L, Vitamin B12 Level [Pending], Folate 19.6, Thyroid Stimulating Hormone (TSH) 0.808 07/06/19 08:37: Arterial Blood pH 7.469H, Arterial Blood Partial Pressure CO2 24.0*L, Arterial Blood Partial Pressure O2 165.5H, Arterial Blood HCO3 17.0*L, Arterial Blood Oxygen Saturation 98.3, Arterial Blood Base Excess -5.3L, Phan Test Positive Height (Feet): 5 Height (Inches): 8.00 Weight (Pounds): 158 Objective exam stable nixon indwelling urine yellow/kristen, occasional debris lCayton Callejas MD Jul 06, 2019 09:05
--- NOTE | 2019-07-06 09:20 | NUR ---
NURSE NOTES: Received call from Lucian in the lab with positive blood culture: gram + rods. Dr Page made aware.
[2019-07-06 09:24] LABS: % IRON SATURATION 5 % (15-50); IRON 9 ug/dL (50-175); TOTAL IRON BINDING CAPACITY 189 ug/dL (250-450)
--- NOTE | 2019-07-06 09:42 | Infectious Diseases Prog Note ---
Assessment/Plan Assessment/Plan Assessment: Shock s/p cardiac arrest 07/05 Sepsis Probable UTI Acute hypoxic respiratory failure, intubated 07/05 Aspiration pneumonia vs pneumonitis Gram positive bacteremia- real vs contaminant -07/05 CXR:Mild CHF -u/a wbc 5-10, nit neg, leuk +2; ucx NTD -Bcx 06/08 GPR -sp cx usual resp rupert -CXR: No acute process -influenza sc neg -v. duplex: no DVT -V/q scan:Findings are deemed low probability for pulmonary embolus Fever; improving No leukocytosis CARA Dm2 dysphagia s/p GT hx of PNA parkinson disease HTN bed bound NH resident Plan: -Continue empiric IV Vancomycin and Cefepime #3 pending cx -Continue Flagyl #2 -07/04 SP Levaquin x1 -f/u cx -Monitor CBC/CMP, temperatures -aspiration precautions -ICU/ETT/GT care -Cards, nephro f/u -Bcx x2 Thank you for this consultation. Will continue to follow along with you. Discussed with RN. Subjective Allergies: Coded Allergies: PENICILLINS (Verified Allergy, Unknown, 07/04/19) Subjective Tm 100.7 remains intubated bacteremic Objective Vital Signs Last 24 Hour Vital Signs Date Time Temp Pulse Resp B/P (MAP) Pulse Ox O2 Delivery O2 Flow Rate FiO2 07/06/19 09:00 63 22 151/56 (87) 100 07/06/19 08:54 65 20 45 07/06/19 08:00 70 6 150/71 (97) 100 07/06/19 08:00 45 07/06/19 08:00 Mechanical Ventilator Mechanical Ventilator Mechanical Ventilator Mechanical Ventilator 07/06/19 07:47 71 07/06/19 07:30 99.1 75 17 151/54 (86) 100 07/06/19 07:29 76 20 45 07/06/19 07:00 69 16 145/54 (84) 100 07/06/19 06:00 69 14 144/53 (83) 100 07/06/19 05:49 72 12 07/06/19 05:36 68 20 45 07/06/19 05:00 71 20 141/62 (88) 100 07/06/19 04:00 65 07/06/19 04:00 99.7 74 18 146/56 (86) 100 07/06/19 04:00 Mechanical Ventilator Mechanical Ventilator Mechanical Ventilator Mechanical Ventilator 07/06/19 04:00 45 07/06/19 03:35 66 20 45 07/06/19 03:00 71 20 141/54 (83) 100 07/06/19 02:00 99.7 79 17 126/44 (71) 100 07/06/19 01:46 82 20 45 07/06/19 01:00 73 19 152/58 (89) 100 07/06/19 00:00 45 07/06/19 00:00 73 07/06/19 00:00 Mechanical Ventilator Mechanical Ventilator Mechanical Ventilator Mechanical Ventilator 07/06/19 00:00 74 20 152/57 (88) 100 07/05/19 23:41 71 20 45 07/05/19 23:00 99.9 75 18 145/69 (94) 100 07/05/19 22:30 99.9 07/05/19 22:00 100.7 77 20 137/56 (83) 100 07/05/19 21:48 80 20 45 07/05/19 21:30 81 20 144/60 (88) 100 07/05/19 21:00 82 18 134/73 (93) 100 07/05/19 20:00 81 07/05/19 20:00 Mechanical Ventilator Mechanical Ventilator Mechanical Ventilator Mechanical Ventilator 07/05/19 20:00 45 07/05/19 20:00 99.7 84 20 145/53 (83) 100 07/05/19 19:13 81 20 45 07/05/19 19:00 82 20 134/48 (76) 100 07/05/19 18:00 83 20 133/53 (79) 100 07/05/19 17:00 86 20 118/89 (99) 86 07/05/19 16:43 87 20 45 07/05/19 16:00 98.7 91 20 112/65 (81) 98 07/05/19 16:00 89 07/05/19 16:00 Mechanical Ventilator Mechanical Ventilator Mechanical Ventilator Mechanical Ventilator 07/05/19 15:00 91 20 98/58 (71) 99 07/05/19 14:55 45 07/05/19 14:55 89 20 45 07/05/19 14:20 92 18 95/61 (72) 98 07/05/19 14:15 93 18 86/56 (66) 95 07/05/19 14:00 93 17 88/51 (63) 95 07/05/19 13:00 103 31 100/59 (73) 100 07/05/19 12:45 105 16 55 07/05/19 12:00 55 07/05/19 12:00 103 31 98/33 (54) 100 07/05/19 12:00 Mechanical Ventilator Mechanical Ventilator Mechanical Ventilator Mechanical Ventilator 07/05/19 12:00 104 07/05/19 11:45 107/36 07/05/19 11:40 104 18 89/40 (56) 100 07/05/19 11:30 107 24 94/41 (58) 100 07/05/19 11:30 112 18 55 07/05/19 11:20 111 24 52/17 (29) 100 07/05/19 11:10 116 22 64/17 (33) 100 07/05/19 11:00 Mechanical Ventilator Mechanical Ventilator Mechanical Ventilator 07/05/19 11:00 123 21 100 07/05/19 11:00 132 07/05/19 11:00 55 07/05/19 11:00 98.3 141 18 59/33 (42) 90 Height (Feet): 5 Height (Inches): 8.00 Weight (Pounds): 158 Objective General Appearance: cachetic, thin Lines, tubes and drains: peripheral HEENT: normocephalic, atraumatic Neck: non-tender, normal alignment Respiratory/Chest: chest wall non-tender, lungs clear Breasts: no masses Cardiovascular/Chest: normal peripheral pulses, normal rate Abdomen: normal bowel sounds, non tender, hyperactive bowel sounds Genitourinary/Rectal: normal genital exam Extremities: normal range of motion Skin Exam: normal pigmentation Microbiology Date/Time Source Procedure Growth Status 07/04/19 01:00 Blood Blood Culture - Preliminary Resulted 07/04/19 00:55 Blood Blood Culture - Preliminary NO GROWTH AFTER 48 HOURS Resulted 07/04/19 10:15 Sputum Gram Stain - Final Complete 07/04/19 10:15 Sputum Culture - Final Nicolle Albicans Usual Respiratory Rupert Complete 07/04/19 01:10 Nasal Nares - Final Complete 07/04/19 01:10 Nasal Nares - Final Complete 07/04/19 00:43 Nasal Nares MRSA Culture - Final NO METHICILLIN RESISTANT STAPH AUREUS... Complete 07/04/19 01:25 Urine,Clean Catch Urine Culture - Preliminary NO GROWTH AFTER 24 HOURS Resulted Laboratory Tests Test 07/05/19 10:57 07/05/19 12:00 07/05/19 12:45 07/05/19 12:47 Arterial Blood pH 7.097 (7.350-7.450) 7.239 (7.350-7.450) Arterial Blood Partial Pressure CO2 57.2 mmHg (35.0-45.0) *H 37.6 mmHg (35.0-45.0) Arterial Blood Partial Pressure O2 287.8 mmHg (75.0-100.0) H 154.1 mmHg (75.0-100.0) H Arterial Blood HCO3 17.2 mmol/L (22.0-26.0) *L 15.7 mmol/L (22.0-26.0) *L Arterial Blood Oxygen Saturation 99.3 % (95-100) 98.5 % (95-100) Arterial Blood Base Excess -12.5 (-2-2) *L -10.9 (-2-2) *L Phan Test Positive Positive D-Dimer > 35.20 mg/L FEU Troponin I 0.205 ng/mL (0.000-0.056) Sodium Level 149 MMOL/L (136-145) H Potassium Level 5.0 MMOL/L (3.5-5.1) Chloride Level 118 MMOL/L (98-107) H Carbon Dioxide Level 21 MMOL/L (21-32) Anion Gap 10 mmol/L (5-15) Blood Urea Nitrogen 37 mg/dL (7-18) H Creatinine 1.3 MG/DL (0.55-1.30) Estimat Glomerular Filtration Rate mL/min (>60) Glucose Level 142 MG/DL (74-106) H Calcium Level 6.8 MG/DL (8.5-10.1) L Total Bilirubin 0.3 MG/DL (0.2-1.0) Aspartate Amino Transf (AST/SGOT) 605 U/L (15-37) H Alanine Aminotransferase (ALT/SGPT) 603 U/L (12-78) H Alkaline Phosphatase 80 U/L (46-116) Total Protein 6.2 G/DL (6.4-8.2) L Albumin 2.6 G/DL (3.4-5.0) L Globulin 3.6 g/dL Albumin/Globulin Ratio 0.7 (1.0-2.7) L Test 07/05/19 16:30 07/05/19 18:40 07/06/19 04:00 07/06/19 08:37 Stool Occult Blood Positive (NEGATIVE) Troponin I 0.474 ng/mL (0.000-0.056) 0.295 ng/mL (0.000-0.056) White Blood Count 6.1 K/UL (4.8-10.8) Red Blood Count 3.47 M/UL (4.70-6.10) L Hemoglobin 9.6 G/DL (14.2-18.0) L Hematocrit 29.6 % (42.0-52.0) L Mean Corpuscular Volume 85 FL (80-99) Mean Corpuscular Hemoglobin 27.5 PG (27.0-31.0) Mean Corpuscular Hemoglobin Concent 32.3 G/DL (32.0-36.0) Red Cell Distribution Width 14.0 % (11.6-14.8) Platelet Count 157 K/UL (150-450) Mean Platelet Volume 7.2 FL (6.5-10.1) Neutrophils (%) (Auto) % (45.0-75.0) Lymphocytes (%) (Auto) % (20.0-45.0) Monocytes (%) (Auto) % (1.0-10.0) Eosinophils (%) (Auto) % (0.0-3.0) Basophils (%) (Auto) % (0.0-2.0) Neutrophils % (Manual) Pending Lymphocytes % (Manual) Pending Platelet Estimate Pending Platelet Morphology Pending Sodium Level 147 MMOL/L (136-145) H Potassium Level 3.8 MMOL/L (3.5-5.1) Chloride Level 116 MMOL/L (98-107) H Carbon Dioxide Level 21 MMOL/L (21-32) Anion Gap 10 mmol/L (5-15) Blood Urea Nitrogen 37 mg/dL (7-18) H Creatinine 1.5 MG/DL (0.55-1.30) H Estimat Glomerular Filtration Rate mL/min (>60) Glucose Level 155 MG/DL (74-106) H Hemoglobin A1c 6.1 % (4.3-6.0) H Uric Acid Pending Calcium Level 7.4 MG/DL (8.5-10.1) L Phosphorus Level 2.2 MG/DL (2.5-4.9) L Magnesium Level 1.8 MG/DL (1.8-2.4) Iron Level 9 ug/dL (50-175) L Total Iron Binding Capacity 189 ug/dL (250-450) L Percent Iron Saturation 5 % (15-50) L Unsaturated Iron Binding 180 ug/dL (112-346) Ferritin Pending Total Bilirubin 0.4 MG/DL (0.2-1.0) Gamma Glutamyl Transpeptidase Pending Aspartate Amino Transf (AST/SGOT) 426 U/L (15-37) H Alanine Aminotransferase (ALT/SGPT) 588 U/L (12-78) H Alkaline Phosphatase 73 U/L (46-116) Total Creatine Kinase Pending Pro-B-Type Natriuretic Peptide 2394 pg/mL (0-125) H Total Protein 6.5 G/DL (6.4-8.2) Albumin 2.6 G/DL (3.4-5.0) L Globulin 3.9 g/dL Albumin/Globulin Ratio 0.7 (1.0-2.7) L Triglycerides Level 36 MG/DL (30-150) Cholesterol Level 98 MG/DL (< 200) LDL Cholesterol 42 mg/dL (<100) HDL Cholesterol 44 MG/DL (40-60) Cholesterol/HDL Ratio 2.2 (3.3-4.4) L Vitamin B12 Level 2361 PG/ML (193-986) H Folate 19.6 NG/ML (8.6-58.9) Thyroid Stimulating Hormone (TSH) 0.808 uiU/mL (0.358-3.740) Arterial Blood pH 7.469 (7.350-7.450) Arterial Blood Partial Pressure CO2 24.0 mmHg (35.0-45.0) *L Arterial Blood Partial Pressure O2 165.5 mmHg (75.0-100.0) H Arterial Blood HCO3 17.0 mmol/L (22.0-26.0) *L Arterial Blood Oxygen Saturation 98.3 % (95-100) Arterial Blood Base Excess -5.3 (-2-2) L Phan Test Positive Current Medications Medications (Trade) Dose Ordered Sig/Genoveva Route PRN Reason Start Time Stop Time Status Last Admin Dose Admin Acetaminophen (Tylenol) 650 mg Q6H PRN ORAL Mild Pain/Temp > 100.5 07/05/19 15:00 08/03/19 14:59 07/05/19 21:22 Albuterol/ Ipratropium (Albuterol/ Ipratropium) 3 ml Q4H PRN HHN Shortness of Breath 07/05/19 15:30 07/09/19 07:29 Cefepime HCl 1 gm/ Dextrose 55 ml @ 110 mls/hr Q24H IVPB 07/05/19 21:00 07/11/19 20:59 07/05/19 20:47 Chlorhexidine Gluconate (Alondra-Hex 2%) 1 applic DAILY@2000 TOPIC 07/05/19 20:00 08/04/19 19:59 07/05/19 19:29 Heparin Sodium (Porcine) (Heparin 5000 units/ml) 5,000 units EVERY 8 HOURS SUBQ 07/05/19 14:30 08/03/19 14:29 07/06/19 05:29 Hydrocortisone (Solu-CORTEF) 100 mg EVERY 8 HOURS IV 07/05/19 14:30 08/04/19 14:29 07/06/19 05:28 Lorazepam (Ativan 2mg/ml 1ml) 2 mg Q4H PRN IV For Anxiety 07/05/19 15:15 07/12/19 11:14 Metronidazole 100 ml @ 100 mls/hr Q12HR IVPB 07/05/19 21:00 07/11/19 08:59 07/06/19 08:08 Morphine Sulfate (Morphine Sulfate) 4 mg Q4H PRN IVP For Severe Pain (6 to 10) 07/05/19 15:15 07/12/19 11:14 Norepinephrine Bitartrate 4 mg/ Dextrose 250 ml @ 0 mls/hr Q24H IV 07/06/19 15:30 08/04/19 15:29 Pantoprazole (Protonix) 40 mg Q12HR IV 07/05/19 21:00 08/04/19 11:14 07/06/19 08:07 Promethazine HCl/ Codeine (Phenergan with Codeine) 5 ml Q4H PRN ORAL For Cough 07/05/19 15:30 08/03/19 07:29 Sodium Chloride 1,000 ml @ 100 mls/hr Q10H IV 07/05/19 15:00 08/04/19 14:59 07/06/19 01:46 Vancomycin HCl (Vanco rx to dose) 1 ea DAILY PRN MISC Per rx protocol 07/06/19 09:00 08/03/19 08:59 Mirian Page M.D. Jul 06, 2019 09:42
--- NOTE | 2019-07-06 09:52 | NUR ---
RADIOLOGY DEPT., CHEST X-RAY DONE.-P.DYE
--- NOTE | 2019-07-06 09:59 | Diagnostic Imaging Report ---
EXAM: XR Chest, 1 View CLINICAL HISTORY: DYSPNEA TECHNIQUE: Frontal view of the chest. COMPARISON: Chest x-rays dated 07/05/19 FINDINGS: Lungs: Unremarkable. The lungs appear clear. No focal consolidation. Pleural space: Unremarkable. The costophrenic angles are sharp. No visible pneumothorax. Heart: Mild cardiomegaly is unchanged. Mediastinum: Unremarkable. Bones/joints: Unremarkable. Vasculature: Atherosclerotic calcifications are noted within the aortic arch. Tubes, lines and devices: Stable positioning of lines and tubes. IMPRESSION: No significant interval change from the prior day's chest x-ray.
--- NOTE | 2019-07-06 10:00 | NUR ---
NURSE NOTES: Pt's family at bedside. Updated the on pt's current condition. Oral care completed, pt suctioned and repositioned. No distress noted.
[2019-07-06 10:07] LABS: CREATINE KINASE 1815 U/L (26-308); FERRITIN 297 NG/ML (8-388); GAMMA GLUTAMYL TRANSPEPTIDASE 40 U/L (5-85)
--- NOTE | 2019-07-06 12:00 | NUR ---
NURSE NOTES: Pt found with Rt EJ PIV pulled out. Some bleeding noted. Pressure dressing applied. No distress noted.
--- NOTE | 2019-07-06 12:29 | Nephrology Progress Note ---
Assessment/Plan Problem List: (1) CARA (acute kidney injury) (2) Cardiac arrest with successful resuscitation (3) Respiratory failure with hypoxia (4) Hydronephrosis Assessment patient have Cara due to Low BP and s/p arrest elevated liver enzymes for same reason others: 1. Acute hypoxemic respiratory failure. 2. Hypotension possible sepsis. 3. Diabetes type 2. 4. Parkinson disease. 5. Hypercholesterolemia. 6. EjFx 65% reported 7. Dysphagia. 8. Benign prostatic hypertrophy. Plan Plan: Nitro- Phos supplement change IV keep BP above 100 syst Pulm support monitor renal parameters VALENTINA: Moderate left hydronephrosis. Juan catheter. Echogenic right kidney. Suspected medical renal disease. Subjective ROS Limited/Unobtainable: Yes Constitutional: Reports: other - intubated Objective Objective Last 24 Hour Vital Signs Date Time Temp Pulse Resp B/P (MAP) Pulse Ox O2 Delivery O2 Flow Rate FiO2 07/06/19 11:29 64 20 45 07/06/19 11:00 75 13 144/52 (82) 100 07/06/19 10:00 61 19 155/57 (89) 100 07/06/19 09:00 63 22 151/56 (87) 100 07/06/19 08:54 65 20 45 07/06/19 08:00 70 6 150/71 (97) 100 07/06/19 08:00 45 07/06/19 08:00 Mechanical Ventilator Mechanical Ventilator Mechanical Ventilator Mechanical Ventilator 07/06/19 07:47 71 07/06/19 07:30 99.1 75 17 151/54 (86) 100 07/06/19 07:29 76 20 45 07/06/19 07:00 69 16 145/54 (84) 100 07/06/19 06:00 69 14 144/53 (83) 100 07/06/19 05:49 72 12 07/06/19 05:36 68 20 45 07/06/19 05:00 71 20 141/62 (88) 100 07/06/19 04:00 65 07/06/19 04:00 99.7 74 18 146/56 (86) 100 07/06/19 04:00 Mechanical Ventilator Mechanical Ventilator Mechanical Ventilator Mechanical Ventilator 07/06/19 04:00 45 07/06/19 03:35 66 20 45 07/06/19 03:00 71 20 141/54 (83) 100 07/06/19 02:00 99.7 79 17 126/44 (71) 100 07/06/19 01:46 82 20 45 07/06/19 01:00 73 19 152/58 (89) 100 07/06/19 00:00 45 07/06/19 00:00 73 07/06/19 00:00 Mechanical Ventilator Mechanical Ventilator Mechanical Ventilator Mechanical Ventilator 07/06/19 00:00 74 20 152/57 (88) 100 07/05/19 23:41 71 20 45 07/05/19 23:00 99.9 75 18 145/69 (94) 100 07/05/19 22:30 99.9 07/05/19 22:00 100.7 77 20 137/56 (83) 100 07/05/19 21:48 80 20 45 07/05/19 21:30 81 20 144/60 (88) 100 07/05/19 21:00 82 18 134/73 (93) 100 07/05/19 20:00 81 07/05/19 20:00 Mechanical Ventilator Mechanical Ventilator Mechanical Ventilator Mechanical Ventilator 07/05/19 20:00 45 07/05/19 20:00 99.7 84 20 145/53 (83) 100 07/05/19 19:13 81 20 45 07/05/19 19:00 82 20 134/48 (76) 100 07/05/19 18:00 83 20 133/53 (79) 100 07/05/19 17:00 86 20 118/89 (99) 86 07/05/19 16:43 87 20 45 07/05/19 16:00 98.7 91 20 112/65 (81) 98 07/05/19 16:00 89 07/05/19 16:00 Mechanical Ventilator Mechanical Ventilator Mechanical Ventilator Mechanical Ventilator 07/05/19 15:00 91 20 98/58 (71) 99 07/05/19 14:55 45 07/05/19 14:55 89 20 45 07/05/19 14:20 92 18 95/61 (72) 98 07/05/19 14:15 93 18 86/56 (66) 95 07/05/19 14:00 93 17 88/51 (63) 95 07/05/19 13:00 103 31 100/59 (73) 100 07/05/19 12:45 105 16 55 Intake and Output 07/05/19 07/06/19 19:00 07:00 Intake Total 1886.91967 ml 1355 ml Output Total 725 ml 600 ml Balance 1161.65740 ml 755 ml IV Total 1886.86425 ml 1355 ml Output Urine Total 725 ml 600 ml # Bowel Movements 2 Laboratory Tests 07/05/19 12:45: Sodium Level 149H, Potassium Level 5.0, Chloride Level 118H, Carbon Dioxide Level 21, Anion Gap 10, Blood Urea Nitrogen 37H, Creatinine 1.3, Estimat Glomerular Filtration Rate , Glucose Level 142H, Calcium Level 6.8L, Total Bilirubin 0.3, Aspartate Amino Transf (AST/SGOT) 605H, Alanine Aminotransferase (ALT/SGPT) 603H, Alkaline Phosphatase 80, Total Protein 6.2L, Albumin 2.6L, Globulin 3.6, Albumin/Globulin Ratio 0.7L 07/05/19 12:47: Arterial Blood pH 7.239*L, Arterial Blood Partial Pressure CO2 37.6, Arterial Blood Partial Pressure O2 154.1H, Arterial Blood HCO3 15.7*L, Arterial Blood Oxygen Saturation 98.5, Arterial Blood Base Excess -10.9*L, Phan Test Positive 07/05/19 16:30: Stool Occult Blood Positive 07/05/19 18:40: Troponin I 0.474H 07/06/19 04:00: White Blood Count 6.1, Red Blood Count 3.47L, Hemoglobin 9.6L, Hematocrit 29.6L , Mean Corpuscular Volume 85, Mean Corpuscular Hemoglobin 27.5, Mean Corpuscular Hemoglobin Concent 32.3, Red Cell Distribution Width 14.0, Platelet Count 157, Mean Platelet Volume 7.2, Neutrophils (%) (Auto) , Lymphocytes (%) ( Auto) , Monocytes (%) (Auto) , Eosinophils (%) (Auto) , Basophils (%) (Auto) , Differential Total Cells Counted 100, Neutrophils % (Manual) 84H, Lymphocytes % (Manual) 12L, Monocytes % (Manual) 3, Eosinophils % (Manual) 0, Basophils % ( Manual) 0, Band Neutrophils 1, Platelet Estimate Adequate, Platelet Morphology Normal, Hypochromasia 2+, Sodium Level 147H, Potassium Level 3.8, Chloride Level 116H, Carbon Dioxide Level 21, Anion Gap 10, Blood Urea Nitrogen 37H, Creatinine 1.5H, Estimat Glomerular Filtration Rate , Glucose Level 155H, Hemoglobin A1c 6.1H, Uric Acid 8.1H, Calcium Level 7.4L, Phosphorus Level 2.2L, Magnesium Level 1.8, Iron Level 9L, Total Iron Binding Capacity 189L, Percent Iron Saturation 5L, Unsaturated Iron Binding 180, Ferritin 297, Total Bilirubin 0.4, Gamma Glutamyl Transpeptidase 40, Aspartate Amino Transf (AST/SGOT) 426H, Alanine Aminotransferase (ALT/SGPT) 588H, Alkaline Phosphatase 73, Total Creatine Kinase 1815H, Troponin I 0.295H, Pro-B-Type Natriuretic Peptide 2394H, Total Protein 6.5, Albumin 2.6L, Globulin 3.9, Albumin/Globulin Ratio 0.7L, Triglycerides Level 36, Cholesterol Level 98, LDL Cholesterol 42, HDL Cholesterol 44, Cholesterol/HDL Ratio 2.2L, Vitamin B12 Level 2361H, Folate 19.6 , Thyroid Stimulating Hormone (TSH) 0.808 07/06/19 08:37: Arterial Blood pH 7.469H, Arterial Blood Partial Pressure CO2 24.0*L, Arterial Blood Partial Pressure O2 165.5H, Arterial Blood HCO3 17.0*L, Arterial Blood Oxygen Saturation 98.3, Arterial Blood Base Excess -5.3L, Phan Test Positive Height (Feet): 5 Height (Inches): 8.00 Weight (Pounds): 158 General Appearance: no apparent distress EENT: other - vented Cardiovascular: bradycardia Respiratory/Chest: decreased breath sounds Abdomen: distended Oskar Mohr MD Jul 06, 2019 12:29
--- NOTE | 2019-07-06 12:47 | Cardiac Electrophysiology PN ---
Assessment/Plan Assessment/Plan 1. Status post bradycardic arrest with heart rate in the 20s. Off any sinus node or AV destinee blocking agents. 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 The first two troponins on admission were negative. 3 follow up troponins are now elevated. 2. NSTEMI. Due to arrest 3. Respiratory failure, currently intubated on the ventilator and broad- spectrum IV antibiotic 3. Hypotension. Improved with IV fluid 5. Dehydration, hyperatremia. 6. Dysphagia, status post PEG placement. 7. Diabetes. 8. Benign prostatic hypertrophy. DW and RN Subjective Subjective Intubated on the Vent. at bedside. No more bradycardia. Objective Last 24 Hour Vital Signs Date Time Temp Pulse Resp B/P (MAP) Pulse Ox O2 Delivery O2 Flow Rate FiO2 07/06/19 12:38 69 20 45 07/06/19 11:29 64 20 45 07/06/19 11:00 75 13 144/52 (82) 100 07/06/19 10:00 61 19 155/57 (89) 100 07/06/19 09:00 63 22 151/56 (87) 100 07/06/19 08:54 65 20 45 07/06/19 08:00 70 6 150/71 (97) 100 07/06/19 08:00 45 07/06/19 08:00 Mechanical Ventilator Mechanical Ventilator Mechanical Ventilator Mechanical Ventilator 07/06/19 07:47 71 07/06/19 07:30 99.1 75 17 151/54 (86) 100 07/06/19 07:29 76 20 45 07/06/19 07:00 69 16 145/54 (84) 100 07/06/19 06:00 69 14 144/53 (83) 100 07/06/19 05:49 72 12 07/06/19 05:36 68 20 45 07/06/19 05:00 71 20 141/62 (88) 100 07/06/19 04:00 65 07/06/19 04:00 99.7 74 18 146/56 (86) 100 07/06/19 04:00 Mechanical Ventilator Mechanical Ventilator Mechanical Ventilator Mechanical Ventilator 07/06/19 04:00 45 07/06/19 03:35 66 20 45 07/06/19 03:00 71 20 141/54 (83) 100 07/06/19 02:00 99.7 79 17 126/44 (71) 100 07/06/19 01:46 82 20 45 07/06/19 01:00 73 19 152/58 (89) 100 07/06/19 00:00 45 07/06/19 00:00 73 07/06/19 00:00 Mechanical Ventilator Mechanical Ventilator Mechanical Ventilator Mechanical Ventilator 07/06/19 00:00 74 20 152/57 (88) 100 07/05/19 23:41 71 20 45 07/05/19 23:00 99.9 75 18 145/69 (94) 100 07/05/19 22:30 99.9 07/05/19 22:00 100.7 77 20 137/56 (83) 100 07/05/19 21:48 80 20 45 07/05/19 21:30 81 20 144/60 (88) 100 07/05/19 21:00 82 18 134/73 (93) 100 07/05/19 20:00 81 07/05/19 20:00 Mechanical Ventilator Mechanical Ventilator Mechanical Ventilator Mechanical Ventilator 07/05/19 20:00 45 07/05/19 20:00 99.7 84 20 145/53 (83) 100 07/05/19 19:13 81 20 45 07/05/19 19:00 82 20 134/48 (76) 100 07/05/19 18:00 83 20 133/53 (79) 100 07/05/19 17:00 86 20 118/89 (99) 86 07/05/19 16:43 87 20 45 07/05/19 16:00 98.7 91 20 112/65 (81) 98 07/05/19 16:00 89 07/05/19 16:00 Mechanical Ventilator Mechanical Ventilator Mechanical Ventilator Mechanical Ventilator 07/05/19 15:00 91 20 98/58 (71) 99 07/05/19 14:55 45 07/05/19 14:55 89 20 45 07/05/19 14:20 92 18 95/61 (72) 98 07/05/19 14:15 93 18 86/56 (66) 95 07/05/19 14:00 93 17 88/51 (63) 95 07/05/19 13:00 103 31 100/59 (73) 100 07/05/19 12:45 105 16 55 Intake and Output 07/05/19 07/06/19 19:00 07:00 Intake Total 1886.53584 ml 1355 ml Output Total 725 ml 600 ml Balance 1161.19887 ml 755 ml IV Total 1886.73290 ml 1355 ml Output Urine Total 725 ml 600 ml # Bowel Movements 2 Laboratory Tests Test 07/05/19 12:45 07/05/19 12:47 07/05/19 16:30 07/05/19 18:40 Sodium Level 149 MMOL/L (136-145) H Potassium Level 5.0 MMOL/L (3.5-5.1) Chloride Level 118 MMOL/L (98-107) H Carbon Dioxide Level 21 MMOL/L (21-32) Anion Gap 10 mmol/L (5-15) Blood Urea Nitrogen 37 mg/dL (7-18) H Creatinine 1.3 MG/DL (0.55-1.30) Estimat Glomerular Filtration Rate mL/min (>60) Glucose Level 142 MG/DL (74-106) H Calcium Level 6.8 MG/DL (8.5-10.1) L Total Bilirubin 0.3 MG/DL (0.2-1.0) Aspartate Amino Transf (AST/SGOT) 605 U/L (15-37) H Alanine Aminotransferase (ALT/SGPT) 603 U/L (12-78) H Alkaline Phosphatase 80 U/L (46-116) Total Protein 6.2 G/DL (6.4-8.2) L Albumin 2.6 G/DL (3.4-5.0) L Globulin 3.6 g/dL Albumin/Globulin Ratio 0.7 (1.0-2.7) L Arterial Blood pH 7.239 (7.350-7.450) Arterial Blood Partial Pressure CO2 37.6 mmHg (35.0-45.0) Arterial Blood Partial Pressure O2 154.1 mmHg (75.0-100.0) H Arterial Blood HCO3 15.7 mmol/L (22.0-26.0) *L Arterial Blood Oxygen Saturation 98.5 % (95-100) Arterial Blood Base Excess -10.9 (-2-2) *L Phan Test Positive Stool Occult Blood Positive (NEGATIVE) Troponin I 0.474 ng/mL (0.000-0.056) Test 07/06/19 04:00 07/06/19 08:37 White Blood Count 6.1 K/UL (4.8-10.8) Red Blood Count 3.47 M/UL (4.70-6.10) L Hemoglobin 9.6 G/DL (14.2-18.0) L Hematocrit 29.6 % (42.0-52.0) L Mean Corpuscular Volume 85 FL (80-99) Mean Corpuscular Hemoglobin 27.5 PG (27.0-31.0) Mean Corpuscular Hemoglobin Concent 32.3 G/DL (32.0-36.0) Red Cell Distribution Width 14.0 % (11.6-14.8) Platelet Count 157 K/UL (150-450) Mean Platelet Volume 7.2 FL (6.5-10.1) Neutrophils (%) (Auto) % (45.0-75.0) Lymphocytes (%) (Auto) % (20.0-45.0) Monocytes (%) (Auto) % (1.0-10.0) Eosinophils (%) (Auto) % (0.0-3.0) Basophils (%) (Auto) % (0.0-2.0) Differential Total Cells Counted 100 Neutrophils % (Manual) 84 % (45-75) H Lymphocytes % (Manual) 12 % (20-45) L Monocytes % (Manual) 3 % (1-10) Eosinophils % (Manual) 0 % (0-3) Basophils % (Manual) 0 % (0-2) Band Neutrophils 1 % (0-8) Platelet Estimate Adequate Platelet Morphology Normal Hypochromasia 2+ Sodium Level 147 MMOL/L (136-145) H Potassium Level 3.8 MMOL/L (3.5-5.1) Chloride Level 116 MMOL/L (98-107) H Carbon Dioxide Level 21 MMOL/L (21-32) Anion Gap 10 mmol/L (5-15) Blood Urea Nitrogen 37 mg/dL (7-18) H Creatinine 1.5 MG/DL (0.55-1.30) H Estimat Glomerular Filtration Rate mL/min (>60) Glucose Level 155 MG/DL (74-106) H Hemoglobin A1c 6.1 % (4.3-6.0) H Uric Acid 8.1 MG/DL (2.6-7.2) H Calcium Level 7.4 MG/DL (8.5-10.1) L Phosphorus Level 2.2 MG/DL (2.5-4.9) L Magnesium Level 1.8 MG/DL (1.8-2.4) Iron Level 9 ug/dL (50-175) L Total Iron Binding Capacity 189 ug/dL (250-450) L Percent Iron Saturation 5 % (15-50) L Unsaturated Iron Binding 180 ug/dL (112-346) Ferritin 297 NG/ML (8-388) Total Bilirubin 0.4 MG/DL (0.2-1.0) Gamma Glutamyl Transpeptidase 40 U/L (5-85) Aspartate Amino Transf (AST/SGOT) 426 U/L (15-37) H Alanine Aminotransferase (ALT/SGPT) 588 U/L (12-78) H Alkaline Phosphatase 73 U/L (46-116) Total Creatine Kinase 1815 U/L (26-308) H Troponin I 0.295 ng/mL (0.000-0.056) Pro-B-Type Natriuretic Peptide 2394 pg/mL (0-125) H Total Protein 6.5 G/DL (6.4-8.2) Albumin 2.6 G/DL (3.4-5.0) L Globulin 3.9 g/dL Albumin/Globulin Ratio 0.7 (1.0-2.7) L Triglycerides Level 36 MG/DL (30-150) Cholesterol Level 98 MG/DL (< 200) LDL Cholesterol 42 mg/dL (<100) HDL Cholesterol 44 MG/DL (40-60) Cholesterol/HDL Ratio 2.2 (3.3-4.4) L Vitamin B12 Level 2361 PG/ML (193-986) H Folate 19.6 NG/ML (8.6-58.9) Thyroid Stimulating Hormone (TSH) 0.808 uiU/mL (0.358-3.740) Arterial Blood pH 7.469 (7.350-7.450) Arterial Blood Partial Pressure CO2 24.0 mmHg (35.0-45.0) *L Arterial Blood Partial Pressure O2 165.5 mmHg (75.0-100.0) H Arterial Blood HCO3 17.0 mmol/L (22.0-26.0) *L Arterial Blood Oxygen Saturation 98.3 % (95-100) Arterial Blood Base Excess -5.3 (-2-2) L Phan Test Positive Microbiology Date/Time Source Procedure Growth Status 07/04/19 01:00 Blood Blood Culture - Preliminary Resulted 07/04/19 00:55 Blood Blood Culture - Preliminary NO GROWTH AFTER 48 HOURS Resulted 07/04/19 10:15 Sputum Gram Stain - Final Complete 07/04/19 10:15 Sputum Culture - Final Nicolle Albicans Usual Respiratory Valery Complete 07/04/19 01:10 Nasal Nares - Final Complete 07/04/19 01:10 Nasal Nares - Final Complete 07/04/19 00:43 Nasal Nares MRSA Culture - Final NO METHICILLIN RESISTANT STAPH AUREUS... Complete 07/04/19 01:25 Urine,Clean Catch Urine Culture - Preliminary NO GROWTH AFTER 24 HOURS Resulted Objective HEAD AND NECK: He is orally intubated. Positive JVD. LUNGS: Decreased breath sounds. CARDIOVASCULAR: Tachycardic. ABDOMEN: Status post G-tube. EXTREMITIES: No pitting edema. Enio Santos MD Jul 06, 2019 12:47
[2019-07-06] MEDS: Nitroglycerin Patch 0.4mg TDERMAL SCH (13:13)
[2019-07-06] MEDS: D5 1/2NS 1,000 ML IV SCH (13:13)
[2019-07-06] MEDS ORDERED: Iron Sucrose 200 MG in NS 110 ML IV ONE (14:00)
--- NOTE | 2019-07-06 14:00 | NUR ---
NURSE NOTES: Dr Mohr's electrolyte replacement orders acknowledged, noted and carried out. Oral care completed and pt repositioned. Pt suctioned.
[2019-07-06] MEDS ORDERED: 1/2 NS 1000ml IV ONE (14:12)
[2019-07-06] MEDS ORDERED: Tubing IV Secondary IV ONE (14:12)
[2019-07-06] MEDS ORDERED: NS 275ml ONE (14:12)
[2019-07-06] MEDS ORDERED: Potassium Phosphate 15mm/250ml 250 ML IVPB SCH (15:00)
--- NOTE | 2019-07-06 15:45 | Internal Med Progress Note ---
Subjective Date of Service: Jul 06, 2019 Physician Name Glover,Shukri Attending Physician Rayshawn Woods MD Current Medications Medications (Trade) Dose Ordered Sig/Genoveva Route PRN Reason Start Time Stop Time Status Last Admin Dose Admin Acetaminophen (Tylenol) 650 mg Q6H PRN ORAL Mild Pain/Temp > 100.5 07/05/19 15:00 08/03/19 14:59 07/05/19 21:22 Albuterol/ Ipratropium (Albuterol/ Ipratropium) 3 ml Q4H PRN HHN Shortness of Breath 07/05/19 15:30 07/09/19 07:29 Cefepime HCl 1 gm/ Dextrose 55 ml @ 110 mls/hr Q24H IVPB 07/05/19 21:00 07/11/19 20:59 07/05/19 20:47 Chlorhexidine Gluconate (Alondra-Hex 2%) 1 applic DAILY@2000 TOPIC 07/05/19 20:00 08/04/19 19:59 07/05/19 19:29 Dextrose/Sodium Chloride 1,000 ml @ 75 mls/hr [id number] IV 07/06/19 12:30 08/05/19 12:29 07/06/19 13:13 Heparin Sodium (Porcine) (Heparin 5000 units/ml) 5,000 units EVERY 8 HOURS SUBQ 07/05/19 14:30 08/03/19 14:29 07/06/19 14:04 Hydralazine HCl (Apresoline) 10 mg Q4H PRN IV bp over 160 syst 07/06/19 12:30 08/05/19 12:29 Hydrocortisone (Solu-CORTEF) 100 mg EVERY 8 HOURS IV 07/05/19 14:30 08/04/19 14:29 07/06/19 14:03 Lorazepam (Ativan 2mg/ml 1ml) 2 mg Q4H PRN IV For Anxiety 07/05/19 15:15 07/12/19 11:14 Metronidazole 100 ml @ 100 mls/hr Q12HR IVPB 07/05/19 21:00 07/11/19 08:59 07/06/19 08:08 Morphine Sulfate (Morphine Sulfate) 4 mg Q4H PRN IVP For Severe Pain (6 to 10) 07/05/19 15:15 07/12/19 11:14 Nitroglycerin (Ntg) 1 patch Q24H TDERMAL 07/06/19 12:30 08/05/19 12:29 07/06/19 13:13 Norepinephrine Bitartrate 4 mg/ Dextrose 250 ml @ 0 mls/hr Q24H IV 07/06/19 15:30 08/04/19 15:29 Pantoprazole (Protonix) 40 mg Q12HR IV 07/05/19 21:00 08/04/19 11:14 07/06/19 08:07 Potassium Phosphate 250 ml @ 62.5 mls/hr ONCE IVPB 07/06/19 15:00 07/06/19 19:00 07/06/19 14:50 Promethazine HCl/ Codeine (Phenergan with Codeine) 5 ml Q4H PRN ORAL For Cough 07/05/19 15:30 08/03/19 07:29 Vancomycin HCl (Vanco rx to dose) 1 ea DAILY PRN MISC Per rx protocol 07/06/19 09:00 08/03/19 08:59 Allergies: Coded Allergies: PENICILLINS (Verified Allergy, Unknown, 07/04/19) Subjective 83 YO M admitted with dyspnea, now respiratory failure. Cover for Int Chris-Dr Woods. ICU. Intubated and sedated Objective Last Vital Signs Date Time Temp Pulse Resp B/P (MAP) Pulse Ox O2 Delivery O2 Flow Rate FiO2 07/06/19 14:50 135/61 07/06/19 14:00 93 20 100 07/06/19 12:38 45 07/06/19 12:00 Mechanical Ventilator Mechanical Ventilator Mechanical Ventilator Mechanical Ventilator 07/06/19 12:00 99.6 07/05/19 09:00 12.0 Laboratory Tests Test 07/05/19 16:30 07/05/19 18:40 07/06/19 04:00 07/06/19 08:37 Stool Occult Blood Positive (NEGATIVE) Troponin I 0.474 ng/mL (0.000-0.056) 0.295 ng/mL (0.000-0.056) White Blood Count 6.1 K/UL (4.8-10.8) Red Blood Count 3.47 M/UL (4.70-6.10) L Hemoglobin 9.6 G/DL (14.2-18.0) L Hematocrit 29.6 % (42.0-52.0) L Mean Corpuscular Volume 85 FL (80-99) Mean Corpuscular Hemoglobin 27.5 PG (27.0-31.0) Mean Corpuscular Hemoglobin Concent 32.3 G/DL (32.0-36.0) Red Cell Distribution Width 14.0 % (11.6-14.8) Platelet Count 157 K/UL (150-450) Mean Platelet Volume 7.2 FL (6.5-10.1) Neutrophils (%) (Auto) % (45.0-75.0) Lymphocytes (%) (Auto) % (20.0-45.0) Monocytes (%) (Auto) % (1.0-10.0) Eosinophils (%) (Auto) % (0.0-3.0) Basophils (%) (Auto) % (0.0-2.0) Differential Total Cells Counted 100 Neutrophils % (Manual) 84 % (45-75) H Lymphocytes % (Manual) 12 % (20-45) L Monocytes % (Manual) 3 % (1-10) Eosinophils % (Manual) 0 % (0-3) Basophils % (Manual) 0 % (0-2) Band Neutrophils 1 % (0-8) Platelet Estimate Adequate Platelet Morphology Normal Hypochromasia 2+ Sodium Level 147 MMOL/L (136-145) H Potassium Level 3.8 MMOL/L (3.5-5.1) Chloride Level 116 MMOL/L (98-107) H Carbon Dioxide Level 21 MMOL/L (21-32) Anion Gap 10 mmol/L (5-15) Blood Urea Nitrogen 37 mg/dL (7-18) H Creatinine 1.5 MG/DL (0.55-1.30) H Estimat Glomerular Filtration Rate mL/min (>60) Glucose Level 155 MG/DL (74-106) H Hemoglobin A1c 6.1 % (4.3-6.0) H Uric Acid 8.1 MG/DL (2.6-7.2) H Calcium Level 7.4 MG/DL (8.5-10.1) L Phosphorus Level 2.2 MG/DL (2.5-4.9) L Magnesium Level 1.8 MG/DL (1.8-2.4) Iron Level 9 ug/dL (50-175) L Total Iron Binding Capacity 189 ug/dL (250-450) L Percent Iron Saturation 5 % (15-50) L Unsaturated Iron Binding 180 ug/dL (112-346) Ferritin 297 NG/ML (8-388) Total Bilirubin 0.4 MG/DL (0.2-1.0) Gamma Glutamyl Transpeptidase 40 U/L (5-85) Aspartate Amino Transf (AST/SGOT) 426 U/L (15-37) H Alanine Aminotransferase (ALT/SGPT) 588 U/L (12-78) H Alkaline Phosphatase 73 U/L (46-116) Total Creatine Kinase 1815 U/L (26-308) H Pro-B-Type Natriuretic Peptide 2394 pg/mL (0-125) H Total Protein 6.5 G/DL (6.4-8.2) Albumin 2.6 G/DL (3.4-5.0) L Globulin 3.9 g/dL Albumin/Globulin Ratio 0.7 (1.0-2.7) L Triglycerides Level 36 MG/DL (30-150) Cholesterol Level 98 MG/DL (< 200) LDL Cholesterol 42 mg/dL (<100) HDL Cholesterol 44 MG/DL (40-60) Cholesterol/HDL Ratio 2.2 (3.3-4.4) L Vitamin B12 Level 2361 PG/ML (193-986) H Folate 19.6 NG/ML (8.6-58.9) Thyroid Stimulating Hormone (TSH) 0.808 uiU/mL (0.358-3.740) Arterial Blood pH 7.469 (7.350-7.450) Arterial Blood Partial Pressure CO2 24.0 mmHg (35.0-45.0) *L Arterial Blood Partial Pressure O2 165.5 mmHg (75.0-100.0) H Arterial Blood HCO3 17.0 mmol/L (22.0-26.0) *L Arterial Blood Oxygen Saturation 98.3 % (95-100) Arterial Blood Base Excess -5.3 (-2-2) L Phan Test Positive Microbiology Date/Time Source Procedure Growth Status 07/04/19 01:00 Blood Blood Culture - Preliminary Resulted 07/04/19 00:55 Blood Blood Culture - Preliminary NO GROWTH AFTER 48 HOURS Resulted 07/04/19 10:15 Sputum Gram Stain - Final Complete 07/04/19 10:15 Sputum Culture - Final Nicolle Albicans Usual Respiratory Valery Complete 07/04/19 01:10 Nasal Nares - Final Complete 07/04/19 01:10 Nasal Nares - Final Complete 07/04/19 00:43 Nasal Nares MRSA Culture - Final NO METHICILLIN RESISTANT STAPH AUREUS... Complete 07/04/19 01:25 Urine,Clean Catch Urine Culture - Preliminary NO GROWTH AFTER 24 HOURS Resulted Intake and Output 07/05/19 07/06/19 19:00 07:00 Intake Total 1886.20333 ml 1355 ml Output Total 725 ml 600 ml Balance 1161.55406 ml 755 ml IV Total 1886.80554 ml 1355 ml Output Urine Total 725 ml 600 ml # Bowel Movements 2 Objective PHYSICAL EXAMINATION: GENERAL: The patient is a well-developed and well-nourished male, in moderate respiratory distress. HEENT: Eyes, pupils are equal and responsive to light and accommodation. Extraocular movements are intact. NECK: Supple without lymphadenopathy. CHEST: Mech Vent; Coarse breath sounds bilaterally with expiratory wheezes. Otherwise, without crackles. ABDOMINAL: Soft, nontender, and nondistended. Positive bowel sounds. No evidence of hepatosplenomegaly. Currently, no rebound or guarding noted. CARDIOVASCULAR: Tachycardic. Regular rhythm. S1 and S2 are normal without murmurs, rubs, or gallops. GENITOURINARY: Deferred. NEUROLOGICAL: Cranial nerves II to XII are grossly intact without focal deficits. EXTREMITIES: Negative for clubbing, cyanosis, or edema. Assessment/Plan Assessment/Plan ASSESSMENT: This is an 83-year-old male. 1. Dyspnea. 2. Respiratory distress. 3. Diabetes type 2. 4. Parkinson disease. 5. Hypercholesterolemia. 6. Dilated cardiomyopathy. 7. Dysphagia. 8. Benign prostatic hypertrophy. TREATMENT: 1. Dyspnea/respiratory distress. A Pulmonary consultation has been obtained with Dr. Kathryn Lopez. The patient is currently on mech vent. ABX=vanco and cefepime intravenously. We will follow recommendations of Pulmonary. 2. Diabetes type 2. 3. Hypercholesterolemia. 4. Dilated cardiomyopathy. 5. Dysphagia. The patient is status post PEG placement. 6. Hypertensive heart disease. 7. Benign prostatic hypertrophy. 8. ID=Shukri Rodriguez MD Jul 06, 2019 15:45
--- NOTE | 2019-07-06 19:13 | NUR ---
HAND-OFF: Report given to VIRGIL Lovett.
--- NOTE | 2019-07-06 19:14 | NUR ---
NURSE NOTES: Endorsement received from VIRGIL Murillo. Patient opens eyes spontaneously, makes eye contact. Follows simple commands. Orally intubated with 7.5, 24 lipline. AC 16, 650, 45% FiO2. With right forearm g22, right IJ TLC. Receiving D5 1/2 NS at 75ml/hr. With bilateral soft wrists restraints. Skin normal in color, warm and dry. GT present, patent and intact. On NPO. Juan catheter draining to urimeter. Head of bed elevated. Call light within reach. Bed alarm on. Bed locked and in low position. Will continue the plan of care.
--- NOTE | 2019-07-06 19:37 | NUR ---
NURSE NOTES: Informed Dr. Lopez that patient is positive for stool OB. Also relayed the latest ABG results with vent settings of AC 16, TV 650, 45%, no PEEP. Received new order to discontinue Heparin SQ, SCDs and keep same vent settings.
[2019-07-06] MEDS: Dyna-Hex 2% Top Sol 2oz TOPIC SCH (20:15)
[2019-07-06] MEDS: Cefepime HCl 1 GM in D5W 55 ML IVPB SCH (20:16)
--- NOTE | 2019-07-06 21:00 | NUR ---
NURSE NOTES: Patient asleep. No signs of pain or discomfort.
--- NOTE | 2019-07-06 23:00 | NUR ---
NURSE NOTES: Secretions suctioned. Patient afebrile.
--- NOTE | 2019-07-06 23:45 | Pulmonolgy Critical Care Note ---
Critical Care - Asmt/Plan Assessment/Plan: Pulmonary CCM Progress Note Asmt/Plan Problems: (1) Cardiac arrest (2) Respiratory failure with hypoxia (3) Hypotension (4) Parkinson disease (5) Feeding by G-tube (6) Diabetes mellitus Respiratory: monitor respiratory rate, adjust FIO2, CXR Cardiac: continue pressors, continue to monitor HR/BP Renal: F/U I&O, keep IV fluid, check electrolytes Infectious Disease: check cultures, continue antibiotics Gastrointestinal: hold feedings Endocrine: monitor blood sugar Hematologic: monitor H/H, transfuse if hgb<8.5 Neurologic: PRN Ativan, PRN Morphine, keep patient comfortable Affect: PRN ativan Time Spent (Minutes): 45 Notes Reviewed: Discussed with: nurses Critical Care - Objective Vital Signs Noted Status: obtunded Condition: critical HEENT: atraumatic Lungs: occasional rhonchi Heart: HR/BP unstable Abdomen: soft, non-tender Extremities: no C/C/E Decubiti: location Micro: Microbiology Date/Time Source Procedure Growth Status 07/04/19 01:00 Blood Blood Culture - Preliminary NO GROWTH AFTER 24 HOURS Resulted 07/04/19 00:55 Blood Blood Culture - Preliminary NO GROWTH AFTER 24 HOURS Resulted 07/04/19 10:15 Sputum Gram Stain - Final Resulted 07/04/19 10:15 Sputum Sputum Culture Pending Resulted 07/04/19 01:10 Nasal Nares - Final Complete 07/04/19 01:10 Nasal Nares - Final Complete 07/04/19 01:25 Urine,Clean Catch Urine Culture - Preliminary NO GROWTH Resulted Critical Care - Subjective ROS Limited/Unobtainable: Yes Interval Events: stable in ICU FI02: 40 Vent Support Mode: AC Laboratory Tests Noted Test 07/04/19 12:45 07/04/19 16:45 07/05/19 03:50 White Blood Count 8.2 K/UL (4.8-10.8) 6.5 K/UL (4.8-10.8) Red Blood Count 4.04 M/UL (4.70-6.10) L 3.48 M/UL (4.70-6.10) L Hemoglobin 11.2 G/DL (14.2-18.0) L 9.7 G/DL (14.2-18.0) L Hematocrit 35.5 % (42.0-52.0) L 30.3 % (42.0-52.0) L Mean Corpuscular Volume 88 FL (80-99) 87 FL (80-99) Mean Corpuscular Hemoglobin 27.8 PG (27.0-31.0) 27.8 PG (27.0-31.0) Mean Corpuscular Hemoglobin Concent 31.6 G/DL (32.0-36.0) L 32.0 G/DL (32.0-36.0) Red Cell Distribution Width 14.4 % (11.6-14.8) 14.4 % (11.6-14.8) Platelet Count 191 K/UL (150-450) 194 K/UL (150-450) Mean Platelet Volume 6.8 FL (6.5-10.1) 7.8 FL (6.5-10.1) Neutrophils (%) (Auto) % (45.0-75.0) % (45.0-75.0) Lymphocytes (%) (Auto) % (20.0-45.0) % (20.0-45.0) Monocytes (%) (Auto) % (1.0-10.0) % (1.0-10.0) Eosinophils (%) (Auto) % (0.0-3.0) % (0.0-3.0) Basophils (%) (Auto) % (0.0-2.0) % (0.0-2.0) Differential Total Cells Counted 100 100 Neutrophils % (Manual) 88 % (45-75) H 90 % (45-75) H Lymphocytes % (Manual) 6 % (20-45) L 8 % (20-45) L Monocytes % (Manual) 6 % (1-10) 2 % (1-10) Eosinophils % (Manual) 0 % (0-3) 0 % (0-3) Basophils % (Manual) 0 % (0-2) 0 % (0-2) Band Neutrophils 0 % (0-8) 0 % (0-8) Platelet Estimate Adequate Adequate Platelet Morphology Normal Normal Red Blood Cell Morphology Normal Sodium Level 150 MMOL/L (136-145) H 147 MMOL/L (136-145) H Potassium Level 5.1 MMOL/L (3.5-5.1) 4.3 MMOL/L (3.5-5.1) Chloride Level 118 MMOL/L (98-107) H 115 MMOL/L (98-107) H Carbon Dioxide Level 23 MMOL/L (21-32) 23 MMOL/L (21-32) Anion Gap 9 mmol/L (5-15) 9 mmol/L (5-15) Blood Urea Nitrogen 49 mg/dL (7-18) H 40 mg/dL (7-18) H Creatinine 1.3 MG/DL (0.55-1.30) 1.1 MG/DL (0.55-1.30) Estimat Glomerular Filtration Rate mL/min (>60) mL/min (>60) Glucose Level 118 MG/DL (74-106) H 90 MG/DL (74-106) Uric Acid 7.0 MG/DL (2.6-7.2) Calcium Level 7.5 MG/DL (8.5-10.1) L 7.3 MG/DL (8.5-10.1) L Total Bilirubin 0.3 MG/DL (0.2-1.0) 0.3 MG/DL (0.2-1.0) Aspartate Amino Transf (AST/SGOT) 20 U/L (15-37) 19 U/L (15-37) Alanine Aminotransferase (ALT/SGPT) 46 U/L (12-78) 38 U/L (12-78) Alkaline Phosphatase 65 U/L (46-116) 61 U/L (46-116) Total Creatine Kinase 69 U/L (26-308) Total Protein 7.1 G/DL (6.4-8.2) 6.6 G/DL (6.4-8.2) Albumin 2.9 G/DL (3.4-5.0) L 2.7 G/DL (3.4-5.0) L Globulin 4.2 g/dL 3.9 g/dL Albumin/Globulin Ratio 0.7 (1.0-2.7) L 0.7 (1.0-2.7) L Urine Color Pale yellow Urine Appearance Very cloudy Urine pH 5 (4.5-8.0) Urine Specific Harold 1.015 (1.005-1.035) Urine Protein 2+ (NEGATIVE) H Urine Glucose (UA) Negative (NEGATIVE) Urine Ketones Negative (NEGATIVE) Urine Blood 5+ (NEGATIVE) H Urine Nitrite Negative (NEGATIVE) Urine Bilirubin Negative (NEGATIVE) Urine Urobilinogen Normal MG/DL (0.0-1.0) Urine Leukocyte Esterase 1+ (NEGATIVE) H Urine RBC Tntc /HPF (0 - 0) H Urine WBC 5-10 /HPF (0 - 0) H Urine Squamous Epithelial Cells None /LPF (NONE/OCC) Urine Bacteria Few /HPF (NONE) Urine Eosinophils None seen (NONE SEEN) Urine Osmolality 598 mOsm/kg (429-449) H Urine Random Creatinine Pending Urine Random Microalbumin Pending Urine Random Sodium 49 mmol/L (20-110) Urine Microalbumin/Creatinine Ratio Pending Anisocytosis 1+ Erythrocyte Sedimentation Rate 64 MM/HR (0-20) H Reticulocyte Count 0.9 % (0.5-2.0) Prothrombin Time 12.1 SEC (9.30-11.50) H Prothromb Time International Ratio 1.1 (0.9-1.1) Activated Partial Thromboplast Time 29 SEC (23-33) Phosphorus Level 3.0 MG/DL (2.5-4.9) Magnesium Level 2.0 MG/DL (1.8-2.4) Iron Level 11 ug/dL (50-175) L Total Iron Binding Capacity 227 ug/dL (250-450) L Percent Iron Saturation 5 % (15-50) L Unsaturated Iron Binding 216 ug/dL (112-346) Lactate Dehydrogenase 207 U/L (81-234) Troponin I 0.000 ng/mL (0.000-0.056) C-Reactive Protein, Quantitative 17.5 mg/dL (0.00-0.90) H Carcinoembryonic Antigen Pending Vitamin B12 Level 1160 PG/ML (193-986) H Folate 27.0 NG/ML (8.6-58.9) Random Vancomycin Level 8.5 ug/mL Critical Care - Objective Last 24 Hour Vital Signs Date Time Temp Pulse Resp B/P (MAP) Pulse Ox O2 Delivery O2 Flow Rate FiO2 07/06/19 23:29 65 16 45 07/06/19 21:40 67 16 45 07/06/19 20:00 45 07/06/19 20:00 Mechanical Ventilator Mechanical Ventilator Mechanical Ventilator Mechanical Ventilator 07/06/19 19:32 76 20 45 07/06/19 19:00 75 23 145/63 (90) 100 07/06/19 18:00 75 21 144/66 (92) 100 07/06/19 17:22 81 20 45 07/06/19 17:00 82 20 132/71 (91) 100 07/06/19 16:00 99.4 77 20 151/63 (92) 100 07/06/19 16:00 45 07/06/19 16:00 Mechanical Ventilator Mechanical Ventilator Mechanical Ventilator Mechanical Ventilator 07/06/19 16:00 78 07/06/19 15:20 69 20 45 07/06/19 15:00 70 20 137/62 (87) 100 07/06/19 14:50 135/61 07/06/19 14:00 93 20 115/64 (81) 100 07/06/19 13:13 145/57 07/06/19 13:00 72 20 145/57 (86) 100 07/06/19 12:38 69 20 45 07/06/19 12:00 70 07/06/19 12:00 45 07/06/19 12:00 Mechanical Ventilator Mechanical Ventilator Mechanical Ventilator Mechanical Ventilator 07/06/19 12:00 99.6 69 20 146/66 (92) 100 07/06/19 11:29 64 20 45 07/06/19 11:00 75 13 144/52 (82) 100 07/06/19 10:00 61 19 155/57 (89) 100 07/06/19 09:00 63 22 151/56 (87) 100 07/06/19 08:54 65 20 45 07/06/19 08:00 70 6 150/71 (97) 100 07/06/19 08:00 45 07/06/19 08:00 Mechanical Ventilator Mechanical Ventilator Mechanical Ventilator Mechanical Ventilator 07/06/19 07:47 71 07/06/19 07:30 99.1 75 17 151/54 (86) 100 07/06/19 07:29 76 20 45 07/06/19 07:00 69 16 145/54 (84) 100 07/06/19 06:00 69 14 144/53 (83) 100 07/06/19 05:49 72 12 07/06/19 05:36 68 20 45 07/06/19 05:00 71 20 141/62 (88) 100 07/06/19 04:00 65 07/06/19 04:00 99.7 74 18 146/56 (86) 100 07/06/19 04:00 Mechanical Ventilator Mechanical Ventilator Mechanical Ventilator Mechanical Ventilator 07/06/19 04:00 45 07/06/19 03:35 66 20 45 07/06/19 03:00 71 20 141/54 (83) 100 07/06/19 02:00 99.7 79 17 126/44 (71) 100 07/06/19 01:46 82 20 45 07/06/19 01:00 73 19 152/58 (89) 100 07/06/19 00:00 45 07/06/19 00:00 73 07/06/19 00:00 Mechanical Ventilator Mechanical Ventilator Mechanical Ventilator Mechanical Ventilator 07/06/19 00:00 74 20 152/57 (88) 100 Micro: Microbiology Date/Time Source Procedure Growth Status 07/04/19 01:00 Blood Blood Culture - Preliminary Resulted 07/04/19 00:55 Blood Blood Culture - Preliminary NO GROWTH AFTER 48 HOURS Resulted 07/04/19 10:15 Sputum Gram Stain - Final Complete 07/04/19 10:15 Sputum Culture - Final Nicolle Albicans Usual Respiratory Valery Complete 07/04/19 01:10 Nasal Nares - Final Complete 07/04/19 01:10 Nasal Nares - Final Complete 07/04/19 00:43 Nasal Nares MRSA Culture - Final NO METHICILLIN RESISTANT STAPH AUREUS... Complete 07/04/19 01:25 Urine,Clean Catch Urine Culture - Preliminary NO GROWTH AFTER 24 HOURS Resulted Critical Care - Subjective ROS Limited/Unobtainable: No FI02: 45 Vent Support Breath Rate: 16 Vent Support Mode: AC Vent Tidal Volume: 650 Sputum Amount: Small PEEP: 0.0 PIP: 29 I&O: Intake and Output 07/05/19 07/06/19 18:59 06:59 Intake Total 1786.23283 ml 1355 ml Output Total 675 ml 590 ml Balance 1111.46166 ml 765 ml IV Total 1786.22726 ml 1355 ml Output Urine Total 675 ml 590 ml # Bowel Movements 2 ET-Tube: 7.5 ET Position: 24 Panda Orellana MD Jul 06, 2019 23:45
[2019-07-07] VITALS (26 sets, daily range): BP systolic 135–162; BP diastolic 50–74
--- NOTE | 2019-07-07 01:00 | NUR ---
NURSE NOTES: Patient seen and examined by Dr. Orellana. No new order at this time
[2019-07-07] MEDS: D5 1/2NS 1,000 ML IV SCH (02:21)
--- NOTE | 2019-07-07 04:00 | NUR ---
NURSE NOTES: Bed bath, oral care, change of linens done
[2019-07-07] MEDS: Hydrocortisone 100mg Inj IV SCH ×3 (05:24→21:49)
[2019-07-07 05:54] LABS: HEMATOCRIT 26.6 % (42.0-52.0); MEAN CORPUSCULAR VOLUME 85 FL (80-99); PLATELET COUNT 143 K/UL (150-450); RED BLOOD COUNT 3.14 M/UL (4.70-6.10); RED CELL DISTRIBUTION WIDTH 13.9 % (11.6-14.8); WHITE BLOOD COUNT 7.8 K/UL (4.8-10.8)
--- NOTE | 2019-07-07 06:00 | NUR ---
NURSE NOTES: Patient awake. Responds to name. Afebrile
[2019-07-07 06:06] LABS: ALANINE AMINOTRANSFERASE 400 U/L (12-78); ALBUMIN 2.4 G/DL (3.4-5.0); ALBUMIN/GLOBULIN RATIO 0.6 (1.0-2.7); ALKALINE PHOSPHATASE 60 U/L (46-116); ANION GAP 9 mmol/L (5-15); ASPARTATE AMINO TRANSFERASE 143 U/L (15-37); BILIRUBIN,TOTAL 0.3 MG/DL (0.2-1.0); BLOOD UREA NITROGEN 30 mg/dL (7-18); CALCIUM 7.6 MG/DL (8.5-10.1); CARBON DIOXIDE 22 MMOL/L (21-32); CHLORIDE 120 MMOL/L (98-107); CREATININE 1.3 MG/DL (0.55-1.30); POTASSIUM 3.7 MMOL/L (3.5-5.1); SODIUM 151 MMOL/L (136-145)
--- NOTE | 2019-07-07 07:00 | NUR ---
RESPIRATORY NOTES: Received Patient on Vent settings RR 16, VT 650, FIO2 40%, PEEP +0. Patient intubated with 7.5 ETT at 23cm at the lip, secured with anchor fast. Suctioned small amount of white/ clear secretions through endotracheal tube. Patient awake and alert. Vent plugged into red outlet. Alarms are on and audible. Will continue to monitor throughout the day.
--- NOTE | 2019-07-07 07:10 | NUR ---
HAND-OFF: Report given to VIRGIL Ramos.
--- NOTE | 2019-07-07 07:11 | NUR ---
NURSE NOTES: Received patient from Rachell HERMAN. Patient is awake, opens and traces eyes spontaneously. Sinus Rhythm on the monitor, HR 61. Receiving oxygen via ET tube 7.5, 24cm at the lip line, vent settings: AC 16, TV 650, Fio2 40%. IV site is Right IJ TLC, receiving D5 1/2 NS at 75cc/hr, Right forearm 22g patent and asymptomatic. Juan catheter is intact and draining. Bed is locked, placed in lowest position, side rails up x3, bed alarm on, call light within reach, head of bed elevated. Will continue to monitor.
--- NOTE | 2019-07-07 07:30 | NUR ---
RESPIRATORY NOTES: Mr. Hernandez passed weaning trial. Placed him on PS +8 PEEP +0 FIO2 40%. NIF -20, RSBI 65, SPON VT 450, SPON RR 22. Will continue to closely monitor.
[2019-07-07] MEDS: Pantoprazole Inj IV SCH ×2 (08:00→21:49)
--- NOTE | 2019-07-07 08:58 | NUR ---
NURSE NOTES: Patient is resting comfortably in bed, denies any pain. Patient's family is in the room. Will continue to monitor.
--- NOTE | 2019-07-07 09:15 | NUR ---
NURSE NOTES: Spoke to Dr. Orellana regarding ABG results, plan is to continue patient on CPAP mode and do another ABG at 1100. Will continue to monitor.
--- NOTE | 2019-07-07 09:45 | Urology Progress Note ---
Assessment/Plan Assessment/Plan: 1. Left-sided hydronephrosis. 2. Proteinuria. 3. Hematuria. 4. Pyuria. 5. Urinary retention. 6. BPH history. 7. Rule out neurogenic bladder. 8. Mild acute kidney injury, improved. monitor clinically maintain nixon hand irrigated and do PRN abx as ordered f/u on blood cx order CT A/P, non-urgent monitor renal fxn d/w Dr.'s Woods and Onur d/w nursing staff Subjective Allergies: Coded Allergies: PENICILLINS (Verified Allergy, Unknown, 07/04/19) Subjective all noted, remains on vent Objective Last 24 Hour Vital Signs Date Time Temp Pulse Resp B/P (MAP) Pulse Ox O2 Delivery O2 Flow Rate FiO2 07/07/19 09:03 64 29 40 40 07/07/19 09:00 69 28 144/56 (85) 100 07/07/19 08:00 40 07/07/19 08:00 98.8 74 26 152/69 (96) 100 07/07/19 08:00 Mechanical Ventilator Mechanical Ventilator Mechanical Ventilator Mechanical Ventilator 07/07/19 07:48 67 07/07/19 07:40 100 07/07/19 07:29 71 17 40 40 07/07/19 07:00 66 18 152/61 (91) 100 07/07/19 06:17 68 19 07/07/19 06:00 63 17 144/66 (92) 100 07/07/19 05:30 59 21 147/66 (93) 100 07/07/19 05:00 62 20 143/66 (91) 100 07/07/19 04:59 63 16 40 07/07/19 04:00 40 07/07/19 04:00 68 07/07/19 04:00 98.9 66 21 148/66 (93) 100 07/07/19 04:00 Mechanical Ventilator Mechanical Ventilator Mechanical Ventilator Mechanical Ventilator 07/07/19 03:40 68 16 45 07/07/19 03:00 59 18 144/63 (90) 100 07/07/19 02:00 64 29 145/62 (89) 100 07/07/19 01:51 58 16 45 07/07/19 01:00 62 16 137/56 (83) 100 07/07/19 00:00 70 07/07/19 00:00 99.0 62 16 137/59 (85) 100 07/07/19 00:00 Mechanical Ventilator Mechanical Ventilator Mechanical Ventilator Mechanical Ventilator 07/07/19 00:00 40 07/06/19 23:29 65 16 45 07/06/19 23:00 68 19 148/67 (94) 100 07/06/19 22:00 67 20 138/55 (82) 100 07/06/19 21:40 67 16 45 07/06/19 21:00 72 14 141/57 (85) 100 07/06/19 20:00 45 07/06/19 20:00 Mechanical Ventilator Mechanical Ventilator Mechanical Ventilator Mechanical Ventilator 07/06/19 20:00 98.7 69 18 144/79 (100) 100 07/06/19 20:00 72 07/06/19 19:32 76 20 45 07/06/19 19:00 75 23 145/63 (90) 100 07/06/19 18:00 75 21 144/66 (92) 100 07/06/19 17:22 81 20 45 07/06/19 17:00 82 20 132/71 (91) 100 07/06/19 16:00 99.4 77 20 151/63 (92) 100 07/06/19 16:00 45 07/06/19 16:00 Mechanical Ventilator Mechanical Ventilator Mechanical Ventilator Mechanical Ventilator 07/06/19 16:00 78 07/06/19 15:20 69 20 45 07/06/19 15:00 70 20 137/62 (87) 100 07/06/19 14:50 135/61 07/06/19 14:00 93 20 115/64 (81) 100 07/06/19 13:13 145/57 07/06/19 13:00 72 20 145/57 (86) 100 07/06/19 12:38 69 20 45 07/06/19 12:00 70 07/06/19 12:00 45 07/06/19 12:00 Mechanical Ventilator Mechanical Ventilator Mechanical Ventilator Mechanical Ventilator 07/06/19 12:00 99.6 69 20 146/66 (92) 100 07/06/19 11:29 64 20 45 07/06/19 11:00 75 13 144/52 (82) 100 07/06/19 10:00 61 19 155/57 (89) 100 Intake and Output 07/06/19 07/07/19 19:00 07:00 Intake Total 1403.57 ml 900 ml Output Total 665 ml 510 ml Balance 738.57 ml 390 ml IV Total 1403.57 ml 900 ml Output Urine Total 665 ml 510 ml Microbiology Date/Time Source Procedure Growth Status 07/04/19 01:00 Blood Blood Culture - Preliminary Resulted 07/04/19 10:15 Sputum Gram Stain - Final Complete 07/04/19 10:15 Sputum Culture - Final Nicolle Albicans Usual Respiratory Valery Complete 07/04/19 01:25 Urine,Clean Catch Urine Culture - Final NO GROWTH AFTER 48 HOURS Complete 07/04/19 00:43 Rectum - Final NO CARBAPENEM-RESISTANT ENTEROBACTERI... Complete Current Medications Medications (Trade) Dose Ordered Sig/Genoveva Route PRN Reason Start Time Stop Time Status Last Admin Dose Admin Acetaminophen (Tylenol) 650 mg Q6H PRN ORAL Mild Pain/Temp > 100.5 07/05/19 15:00 08/03/19 14:59 07/05/19 21:22 Albuterol/ Ipratropium (Albuterol/ Ipratropium) 3 ml Q4H PRN HHN Shortness of Breath 07/05/19 15:30 07/09/19 07:29 Cefepime HCl 1 gm/ Dextrose 55 ml @ 110 mls/hr Q24H IVPB 07/05/19 21:00 07/11/19 20:59 07/06/19 20:16 Chlorhexidine Gluconate (Alondra-Hex 2%) 1 applic DAILY@2000 TOPIC 07/05/19 20:00 08/04/19 19:59 07/06/19 20:15 Dextrose/Sodium Chloride 1,000 ml @ 75 mls/hr [id number] IV 07/06/19 12:30 08/05/19 12:29 07/07/19 02:21 Hydralazine HCl (Apresoline) 10 mg Q4H PRN IV bp over 160 syst 07/06/19 12:30 08/05/19 12:29 Hydrocortisone (Solu-CORTEF) 100 mg EVERY 8 HOURS IV 07/05/19 14:30 08/04/19 14:29 07/07/19 05:24 Lorazepam (Ativan 2mg/ml 1ml) 2 mg Q4H PRN IV For Anxiety 07/05/19 15:15 07/12/19 11:14 Metronidazole 100 ml @ 100 mls/hr Q12HR IVPB 07/05/19 21:00 07/11/19 08:59 07/07/19 08:00 Morphine Sulfate (Morphine Sulfate) 4 mg Q4H PRN IVP For Severe Pain (6 to 10) 07/05/19 15:15 07/12/19 11:14 Nitroglycerin (Ntg) 1 patch Q24H TDERMAL 07/06/19 12:30 08/05/19 12:29 07/06/19 13:13 Norepinephrine Bitartrate 4 mg/ Dextrose 250 ml @ 0 mls/hr Q24H IV 07/06/19 15:30 08/04/19 15:29 Pantoprazole (Protonix) 40 mg Q12HR IV 07/05/19 21:00 08/04/19 11:14 07/07/19 08:00 Promethazine HCl/ Codeine (Phenergan with Codeine) 5 ml Q4H PRN ORAL For Cough 07/05/19 15:30 08/03/19 07:29 Vancomycin HCl (Vanco rx to dose) 1 ea DAILY PRN MISC Per rx protocol 07/06/19 09:00 08/03/19 08:59 Vancomycin HCl 750 mg/Sodium Chloride 275 ml @ 183.333 mls/hr Q24H IVPB 07/07/19 10:00 07/12/19 09:59 Laboratory Tests 07/06/19 17:07: Arterial Blood pH 7.366, Arterial Blood Partial Pressure CO2 31.8L, Arterial Blood Partial Pressure O2 180.9H, Arterial Blood HCO3 17.8*L, Arterial Blood Oxygen Saturation 98.6, Arterial Blood Base Excess -6.7L, Phan Test Positive 07/06/19 17:30: Troponin I 0.132H 07/07/19 04:30: Troponin I 0.099H, White Blood Count 7.8, Red Blood Count 3.14L, Hemoglobin 9.0L , Hematocrit 26.6L, Mean Corpuscular Volume 85, Mean Corpuscular Hemoglobin 28.7 , Mean Corpuscular Hemoglobin Concent 34.0, Red Cell Distribution Width 13.9, Platelet Count 143L, Mean Platelet Volume 7.1, Neutrophils (%) (Auto) , Lymphocytes (%) (Auto) , Monocytes (%) (Auto) , Eosinophils (%) (Auto) , Basophils (%) (Auto) , Differential Total Cells Counted 100, Neutrophils % ( Manual) 90H, Lymphocytes % (Manual) 8L, Monocytes % (Manual) 2, Eosinophils % ( Manual) 0, Basophils % (Manual) 0, Band Neutrophils 0, Platelet Estimate DecreasedL, Platelet Morphology Normal, Hypochromasia 1+, Sodium Level 151H, Potassium Level 3.7, Chloride Level 120H, Carbon Dioxide Level 22, Anion Gap 9, Blood Urea Nitrogen 30H, Creatinine 1.3, Estimat Glomerular Filtration Rate , Glucose Level 188H, Calcium Level 7.6L, Phosphorus Level 3.0, Magnesium Level 1.9, Total Bilirubin 0.3, Aspartate Amino Transf (AST/SGOT) 143H, Alanine Aminotransferase (ALT/SGPT) 400H, Alkaline Phosphatase 60, C-Reactive Protein, Quantitative 14.5H, Pro-B-Type Natriuretic Peptide 2301H, Total Protein 6.3L, Albumin 2.4L, Globulin 3.9, Albumin/Globulin Ratio 0.6L, Random Vancomycin Level 8.3 07/07/19 08:43: Arterial Blood pH 7.383, Arterial Blood Partial Pressure CO2 35.9, Arterial Blood Partial Pressure O2 142.7H, Arterial Blood HCO3 20.9L, Arterial Blood Oxygen Saturation 98.1, Arterial Blood Base Excess -3.7L, Phan Test Positive Height (Feet): 5 Height (Inches): 8.00 Weight (Pounds): 160 Objective exam stable nixon indwelling urine yellow/kristen, occasional debris Clayton Callejas MD Jul 07, 2019 09:45
--- NOTE | 2019-07-07 09:49 | Pulmonolgy Critical Care Note ---
Critical Care - Asmt/Plan Assessment/Plan: Pulmonary CCM Progress Note Asmt/Plan Problems: (1) Cardiac arrest (2) Respiratory failure with hypoxia - improving (3) Hypotension (4) Parkinson disease (5) Feeding by G-tube (6) Diabetes mellitus Respiratory: monitor respiratory rate, adjust FIO2, CXR, wean as tolerated Cardiac: continue pressors, continue to monitor HR/BP Renal: F/U I&O, keep IV fluid, check electrolytes Infectious Disease: check cultures, continue antibiotics Gastrointestinal: hold feedings Endocrine: monitor blood sugar Hematologic: monitor H/H, transfuse if hgb<7 Neurologic: PRN Ativan, PRN Morphine, keep patient comfortable Affect: PRN ativan Time Spent (Minutes): 45 Notes Reviewed: Discussed with: nurses seen earlier Critical Care - Objective Vital Signs Noted Status: more interactive Condition: critical HEENT: atraumatic Lungs: CTAB Heart: HR/BP stable Abdomen: soft, non-tender Extremities: no C/C/E Decubiti: location Micro: Microbiology Date/Time Source Procedure Growth Status 07/04/19 01:00 Blood Blood Culture - Preliminary NO GROWTH AFTER 24 HOURS Resulted 07/04/19 00:55 Blood Blood Culture - Preliminary NO GROWTH AFTER 24 HOURS Resulted 07/04/19 10:15 Sputum Gram Stain - Final Resulted 07/04/19 10:15 Sputum Sputum Culture Pending Resulted 07/04/19 01:10 Nasal Nares - Final Complete 07/04/19 01:10 Nasal Nares - Final Complete 07/04/19 01:25 Urine,Clean Catch Urine Culture - Preliminary NO GROWTH Resulted Critical Care - Subjective ROS Limited/Unobtainable: Yes Interval Events: stable in ICU FI02: 40 Vent Support Mode: CPAP, PS8 - RR high 20's, Vt low 400's Laboratory Tests Noted Critical Care - Objective Last 24 Hour Vital Signs Date Time Temp Pulse Resp B/P (MAP) Pulse Ox O2 Delivery O2 Flow Rate FiO2 07/07/19 09:03 64 29 40 40 07/07/19 09:00 69 28 144/56 (85) 100 07/07/19 08:00 40 07/07/19 08:00 98.8 74 26 152/69 (96) 100 07/07/19 08:00 Mechanical Ventilator Mechanical Ventilator Mechanical Ventilator Mechanical Ventilator 07/07/19 07:48 67 07/07/19 07:40 100 07/07/19 07:29 71 17 40 40 07/07/19 07:00 66 18 152/61 (91) 100 07/07/19 06:17 68 19 07/07/19 06:00 63 17 144/66 (92) 100 07/07/19 05:30 59 21 147/66 (93) 100 07/07/19 05:00 62 20 143/66 (91) 100 07/07/19 04:59 63 16 40 07/07/19 04:00 40 07/07/19 04:00 68 07/07/19 04:00 98.9 66 21 148/66 (93) 100 07/07/19 04:00 Mechanical Ventilator Mechanical Ventilator Mechanical Ventilator Mechanical Ventilator 07/07/19 03:40 68 16 45 07/07/19 03:00 59 18 144/63 (90) 100 07/07/19 02:00 64 29 145/62 (89) 100 07/07/19 01:51 58 16 45 07/07/19 01:00 62 16 137/56 (83) 100 07/07/19 00:00 70 07/07/19 00:00 99.0 62 16 137/59 (85) 100 07/07/19 00:00 Mechanical Ventilator Mechanical Ventilator Mechanical Ventilator Mechanical Ventilator 07/07/19 00:00 40 07/06/19 23:29 65 16 45 07/06/19 23:00 68 19 148/67 (94) 100 07/06/19 22:00 67 20 138/55 (82) 100 07/06/19 21:40 67 16 45 07/06/19 21:00 72 14 141/57 (85) 100 07/06/19 20:00 45 07/06/19 20:00 Mechanical Ventilator Mechanical Ventilator Mechanical Ventilator Mechanical Ventilator 07/06/19 20:00 98.7 69 18 144/79 (100) 100 07/06/19 20:00 72 07/06/19 19:32 76 20 45 07/06/19 19:00 75 23 145/63 (90) 100 07/06/19 18:00 75 21 144/66 (92) 100 07/06/19 17:22 81 20 45 07/06/19 17:00 82 20 132/71 (91) 100 07/06/19 16:00 99.4 77 20 151/63 (92) 100 2/1/20 16:00 45 07/06/19 16:00 Mechanical Ventilator Mechanical Ventilator Mechanical Ventilator Mechanical Ventilator 07/06/19 16:00 78 07/06/19 15:20 69 20 45 07/06/19 15:00 70 20 137/62 (87) 100 07/06/19 14:50 135/61 07/06/19 14:00 93 20 115/64 (81) 100 07/06/19 13:13 145/57 07/06/19 13:00 72 20 145/57 (86) 100 07/06/19 12:38 69 20 45 07/06/19 12:00 70 07/06/19 12:00 45 07/06/19 12:00 Mechanical Ventilator Mechanical Ventilator Mechanical Ventilator Mechanical Ventilator 07/06/19 12:00 99.6 69 20 146/66 (92) 100 07/06/19 11:29 64 20 45 07/06/19 11:00 75 13 144/52 (82) 100 07/06/19 10:00 61 19 155/57 (89) 100 Micro: Microbiology Date/Time Source Procedure Growth Status 07/04/19 10:15 Sputum Gram Stain - Final Complete 07/04/19 10:15 Sputum Culture - Final Nicolle Albicans Usual Respiratory Valery Complete Critical Care - Subjective ROS Limited/Unobtainable: No Condition: improving EKG Rhythm: Sinus Rhythm FI02: 40 Vent Support Breath Rate: 16 Vent Support Mode: CPAP Vent Tidal Volume: 650 Sputum Amount: Small PEEP: 0.0 PIP: 10 I&O: Intake and Output 07/06/19 07/07/19 19:00 07:00 Intake Total 1403.57 ml 900 ml Output Total 665 ml 510 ml Balance 738.57 ml 390 ml IV Total 1403.57 ml 900 ml Output Urine Total 665 ml 510 ml ET-Tube: 7.5 ET Position: 24 Panda Orellana MD Jul 07, 2019 09:49
[2019-07-07] MEDS ORDERED: Tubing IV Secondary IV ONE (10:01)
[2019-07-07] MEDS ORDERED: NS 275ml ONE (10:01)
[2019-07-07] MEDS ORDERED: Sterile Water Irrig 1000ml IRRIG ONE (10:01)
[2019-07-07] MEDS ORDERED: D5 1/2NS 1000ml IV ONE (10:01)
[2019-07-07] MEDS: Vancomycin 750mg/NS 275ml IVPB SCH ×2 (10:16)
--- NOTE | 2019-07-07 10:46 | Nephrology Progress Note ---
Assessment/Plan Problem List: (1) CARA (acute kidney injury) (2) Cardiac arrest with successful resuscitation (3) Respiratory failure with hypoxia (4) Hydronephrosis Assessment patient have Cara due to Low BP and s/p arrest elevated liver enzymes for same reason others: 1. Acute hypoxemic respiratory failure. 2. Hypotension possible sepsis. 3. Diabetes type 2. 4. Parkinson disease. 5. Hypercholesterolemia. 6. EjFx 65% reported 7. Dysphagia. 8. Benign prostatic hypertrophy. Plan Plan: change IV to D5w Nitro- Phos supplement as needed keep BP above 100 syst Pulm support monitor renal parameters [place]: Moderate left hydronephrosis. Juan catheter. Echogenic right kidney. Suspected medical renal disease. Subjective ROS Limited/Unobtainable: Yes Objective Objective Last 24 Hour Vital Signs Date Time Temp Pulse Resp B/P (MAP) Pulse Ox O2 Delivery O2 Flow Rate FiO2 07/07/19 10:00 62 27 145/63 (90) 100 07/07/19 09:03 64 29 40 40 07/07/19 09:00 69 28 144/56 (85) 100 07/07/19 08:00 40 07/07/19 08:00 98.8 74 26 152/69 (96) 100 07/07/19 08:00 Mechanical Ventilator Mechanical Ventilator Mechanical Ventilator Mechanical Ventilator 07/07/19 07:48 67 07/07/19 07:40 100 07/07/19 07:29 71 17 40 40 07/07/19 07:00 66 18 152/61 (91) 100 07/07/19 06:17 68 19 07/07/19 06:00 63 17 144/66 (92) 100 07/07/19 05:30 59 21 147/66 (93) 100 07/07/19 05:00 62 20 143/66 (91) 100 07/07/19 04:59 63 16 40 07/07/19 04:00 40 07/07/19 04:00 68 07/07/19 04:00 98.9 66 21 148/66 (93) 100 07/07/19 04:00 Mechanical Ventilator Mechanical Ventilator Mechanical Ventilator Mechanical Ventilator 07/07/19 03:40 68 16 45 07/07/19 03:00 59 18 144/63 (90) 100 07/07/19 02:00 64 29 145/62 (89) 100 07/07/19 01:51 58 16 45 07/07/19 01:00 62 16 137/56 (83) 100 07/07/19 00:00 70 07/07/19 00:00 99.0 62 16 137/59 (85) 100 07/07/19 00:00 Mechanical Ventilator Mechanical Ventilator Mechanical Ventilator Mechanical Ventilator 07/07/19 00:00 40 07/06/19 23:29 65 16 45 07/06/19 23:00 68 19 148/67 (94) 100 07/06/19 22:00 67 20 138/55 (82) 100 07/06/19 21:40 67 16 45 07/06/19 21:00 72 14 141/57 (85) 100 07/06/19 20:00 45 07/06/19 20:00 Mechanical Ventilator Mechanical Ventilator Mechanical Ventilator Mechanical Ventilator 07/06/19 20:00 98.7 69 18 144/79 (100) 100 07/06/19 20:00 72 07/06/19 19:32 76 20 45 07/06/19 19:00 75 23 145/63 (90) 100 07/06/19 18:00 75 21 144/66 (92) 100 07/06/19 17:22 81 20 45 07/06/19 17:00 82 20 132/71 (91) 100 07/06/19 16:00 99.4 77 20 151/63 (92) 100 07/06/19 16:00 45 07/06/19 16:00 Mechanical Ventilator Mechanical Ventilator Mechanical Ventilator Mechanical Ventilator 07/06/19 16:00 78 07/06/19 15:20 69 20 45 07/06/19 15:00 70 20 137/62 (87) 100 07/06/19 14:50 135/61 07/06/19 14:00 93 20 115/64 (81) 100 07/06/19 13:13 145/57 07/06/19 13:00 72 20 145/57 (86) 100 07/06/19 12:38 69 20 45 07/06/19 12:00 70 07/06/19 12:00 45 07/06/19 12:00 Mechanical Ventilator Mechanical Ventilator Mechanical Ventilator Mechanical Ventilator 07/06/19 12:00 99.6 69 20 146/66 (92) 100 07/06/19 11:29 64 20 45 07/06/19 11:00 75 13 144/52 (82) 100 Intake and Output 07/06/19 07/07/19 19:00 07:00 Intake Total 1403.57 ml 900 ml Output Total 665 ml 510 ml Balance 738.57 ml 390 ml IV Total 1403.57 ml 900 ml Output Urine Total 665 ml 510 ml Laboratory Tests 07/06/19 17:07: Arterial Blood pH 7.366, Arterial Blood Partial Pressure CO2 31.8L, Arterial Blood Partial Pressure O2 180.9H, Arterial Blood HCO3 17.8*L, Arterial Blood Oxygen Saturation 98.6, Arterial Blood Base Excess -6.7L, Phan Test Positive 07/06/19 17:30: Troponin I 0.132H 07/07/19 04:30: Troponin I 0.099H, White Blood Count 7.8, Red Blood Count 3.14L, Hemoglobin 9.0L , Hematocrit 26.6L, Mean Corpuscular Volume 85, Mean Corpuscular Hemoglobin 28.7 , Mean Corpuscular Hemoglobin Concent 34.0, Red Cell Distribution Width 13.9, Platelet Count 143L, Mean Platelet Volume 7.1, Neutrophils (%) (Auto) , Lymphocytes (%) (Auto) , Monocytes (%) (Auto) , Eosinophils (%) (Auto) , Basophils (%) (Auto) , Differential Total Cells Counted 100, Neutrophils % ( Manual) 90H, Lymphocytes % (Manual) 8L, Monocytes % (Manual) 2, Eosinophils % ( Manual) 0, Basophils % (Manual) 0, Band Neutrophils 0, Platelet Estimate DecreasedL, Platelet Morphology Normal, Hypochromasia 1+, Sodium Level 151H, Potassium Level 3.7, Chloride Level 120H, Carbon Dioxide Level 22, Anion Gap 9, Blood Urea Nitrogen 30H, Creatinine 1.3, Estimat Glomerular Filtration Rate , Glucose Level 188H, Calcium Level 7.6L, Phosphorus Level 3.0, Magnesium Level 1.9, Total Bilirubin 0.3, Aspartate Amino Transf (AST/SGOT) 143H, Alanine Aminotransferase (ALT/SGPT) 400H, Alkaline Phosphatase 60, C-Reactive Protein, Quantitative 14.5H, Pro-B-Type Natriuretic Peptide 2301H, Total Protein 6.3L, Albumin 2.4L, Globulin 3.9, Albumin/Globulin Ratio 0.6L, Random Vancomycin Level 8.3 07/07/19 08:43: Arterial Blood pH 7.383, Arterial Blood Partial Pressure CO2 35.9, Arterial Blood Partial Pressure O2 142.7H, Arterial Blood HCO3 20.9L, Arterial Blood Oxygen Saturation 98.1, Arterial Blood Base Excess -3.7L, Phan Test Positive Height (Feet): 5 Height (Inches): 8.00 Weight (Pounds): 160 General Appearance: no apparent distress EENT: other - vented Cardiovascular: normal rate Respiratory/Chest: decreased breath sounds Abdomen: distended Oskar Mohr MD Jul 07, 2019 10:46
--- NOTE | 2019-07-07 11:01 | NUR ---
NURSE NOTES: Patient seen and assessed by Dr. Callejas.
--- NOTE | 2019-07-07 11:02 | NUR ---
NURSE NOTES: Changed IV fluid from D5 1/2 NS to D5W under Dr. Mohr's order.
--- NOTE | 2019-07-07 11:24 | NUR ---
HAND-OFF: Report given to Jorge HERMAN.
--- NOTE | 2019-07-07 11:25 | NUR ---
NURSE NOTES: Late entry: PT and report received from VIRGIL Bryant; PT received intubated w/ ETT 7.5 @ 24 R-lip on CPAP mode 40%, peep 0, pressure support of 8, no S/S of respiratory distress noted; able to track staff, signals by nodding head, alarm security or surveillance monitor shows SR with HR @ 66; BP 155/62; PT has nixon intact patent draining at lowest position, PT received NPO status except meds, PT has R-IJ TLC infusing D5W @ 75cc/hr; R-forearm 22g saline locked flushes well patent intact no S/S of infiltration noted. Bed is at lowest position locked, bed alarm on. Will continue to monitor PT.
--- NOTE | 2019-07-07 12:31 | NUR ---
NURSE NOTES: Reported ABG results to MD Esteban; ordered to place PT back on AC mode; cuff leak test, NIF test, RSBI test, weaning protocol tomorrow CPAP 5; pressure support of 8; ABG post 1 hr weaning tomorrow, keep PT sedated to RASS of O. Will place orders on behalf of PT. JACK Mosqueda made aware.
--- NOTE | 2019-07-07 12:38 | NUR ---
NURSE NOTES: PT daughter at bedside, updates given, will continue to monitor PT.
--- NOTE | 2019-07-07 12:49 | NUR ---
RESPIRATORY NOTES: Weaning successful. Stopped at [address] Placed back on acvc settings. Will continue to monitor.
[2019-07-07] MEDS: Nitroglycerin Patch 0.4mg TDERMAL SCH (12:54)
--- NOTE | 2019-07-07 15:16 | Internal Med Progress Note ---
Subjective Date of Service: Jul 07, 2019 Physician Name Shukri Glover Attending Physician Rayshawn Woods MD Current Medications Medications (Trade) Dose Ordered Sig/Genoveva Route PRN Reason Start Time Stop Time Status Last Admin Dose Admin Acetaminophen (Tylenol) 650 mg Q6H PRN ORAL Mild Pain/Temp > 100.5 07/05/19 15:00 08/03/19 14:59 07/05/19 21:22 Albuterol/ Ipratropium (Albuterol/ Ipratropium) 3 ml Q4H PRN HHN Shortness of Breath 07/05/19 15:30 07/09/19 07:29 Barium Sulfate (Readi-Cat 2) 450 ml NOW PRN ORAL Radiology Procedure 07/07/19 11:30 07/09/19 11:18 Cefepime HCl 1 gm/ Dextrose 55 ml @ 110 mls/hr Q24H IVPB 07/05/19 21:00 07/11/19 20:59 07/06/19 20:16 Chlorhexidine Gluconate (Alondra-Hex 2%) 1 applic DAILY@2000 TOPIC 07/05/19 20:00 08/04/19 19:59 07/06/19 20:15 Dextrose 1,000 ml @ 75 mls/hr [id number] IV 07/07/19 10:45 08/06/19 10:44 07/07/19 10:52 Hydralazine HCl (Apresoline) 10 mg Q4H PRN IV bp over 160 syst 07/06/19 12:30 08/05/19 12:29 Hydrocortisone (Solu-CORTEF) 100 mg EVERY 8 HOURS IV 07/05/19 14:30 08/04/19 14:29 07/07/19 14:22 Lorazepam (Ativan 2mg/ml 1ml) 2 mg Q4H PRN IV For Anxiety 07/05/19 15:15 07/12/19 11:14 Metronidazole 100 ml @ 100 mls/hr Q12HR IVPB 07/05/19 21:00 07/11/19 08:59 07/07/19 08:00 Morphine Sulfate (Morphine Sulfate) 4 mg Q4H PRN IVP For Severe Pain (6 to 10) 07/05/19 15:15 07/12/19 11:14 Nitroglycerin (Ntg) 1 patch Q24H TDERMAL 07/06/19 12:30 08/05/19 12:29 07/07/19 12:54 Norepinephrine Bitartrate 4 mg/ Dextrose 250 ml @ 0 mls/hr Q24H IV 07/06/19 15:30 08/04/19 15:29 Pantoprazole (Protonix) 40 mg Q12HR IV 07/05/19 21:00 08/04/19 11:14 07/07/19 08:00 Promethazine HCl/ Codeine (Phenergan with Codeine) 5 ml Q4H PRN ORAL For Cough 07/05/19 15:30 08/03/19 07:29 Vancomycin HCl (Vanco rx to dose) 1 ea DAILY PRN MISC Per rx protocol 07/06/19 09:00 08/03/19 08:59 Vancomycin HCl 750 mg/Sodium Chloride 275 ml @ 183.333 mls/hr Q24H IVPB 07/07/19 10:00 07/12/19 09:59 07/07/19 10:16 Allergies: Coded Allergies: PENICILLINS (Verified Allergy, Unknown, 07/04/19) ROS Limited/Unobtainable: Yes Subjective 83 YO M admitted with dyspnea, now respiratory failure. Cover for Int Chris-Dr Woods. ICU. Intubated and sedated Objective Last Vital Signs Date Time Temp Pulse Resp B/P (MAP) Pulse Ox O2 Delivery O2 Flow Rate FiO2 07/07/19 15:00 67 18 150/65 (93) 100 07/07/19 12:47 40 07/07/19 12:00 Mechanical Ventilator Mechanical Ventilator Mechanical Ventilator Mechanical Ventilator 07/07/19 12:00 98.6 07/05/19 09:00 12.0 Laboratory Tests Test 07/06/19 17:07 07/06/19 17:30 07/07/19 04:30 07/07/19 08:43 Arterial Blood pH 7.366 (7.350-7.450) 7.383 (7.350-7.450) Arterial Blood Partial Pressure CO2 31.8 mmHg (35.0-45.0) L 35.9 mmHg (35.0-45.0) Arterial Blood Partial Pressure O2 180.9 mmHg (75.0-100.0) H 142.7 mmHg (75.0-100.0) H Arterial Blood HCO3 17.8 mmol/L (22.0-26.0) *L 20.9 mmol/L (22.0-26.0) L Arterial Blood Oxygen Saturation 98.6 % (95-100) 98.1 % (95-100) Arterial Blood Base Excess -6.7 (-2-2) L -3.7 (-2-2) L Phan Test Positive Positive Troponin I 0.132 ng/mL (0.000-0.056) 0.099 ng/mL (0.000-0.056) White Blood Count 7.8 K/UL (4.8-10.8) Red Blood Count 3.14 M/UL (4.70-6.10) L Hemoglobin 9.0 G/DL (14.2-18.0) L Hematocrit 26.6 % (42.0-52.0) L Mean Corpuscular Volume 85 FL (80-99) Mean Corpuscular Hemoglobin 28.7 PG (27.0-31.0) Mean Corpuscular Hemoglobin Concent 34.0 G/DL (32.0-36.0) Red Cell Distribution Width 13.9 % (11.6-14.8) Platelet Count 143 K/UL (150-450) L Mean Platelet Volume 7.1 FL (6.5-10.1) Neutrophils (%) (Auto) % (45.0-75.0) Lymphocytes (%) (Auto) % (20.0-45.0) Monocytes (%) (Auto) % (1.0-10.0) Eosinophils (%) (Auto) % (0.0-3.0) Basophils (%) (Auto) % (0.0-2.0) Differential Total Cells Counted 100 Neutrophils % (Manual) 90 % (45-75) H Lymphocytes % (Manual) 8 % (20-45) L Monocytes % (Manual) 2 % (1-10) Eosinophils % (Manual) 0 % (0-3) Basophils % (Manual) 0 % (0-2) Band Neutrophils 0 % (0-8) Platelet Estimate Decreased L Platelet Morphology Normal Hypochromasia 1+ Sodium Level 151 MMOL/L (136-145) H Potassium Level 3.7 MMOL/L (3.5-5.1) Chloride Level 120 MMOL/L (98-107) H Carbon Dioxide Level 22 MMOL/L (21-32) Anion Gap 9 mmol/L (5-15) Blood Urea Nitrogen 30 mg/dL (7-18) H Creatinine 1.3 MG/DL (0.55-1.30) Estimat Glomerular Filtration Rate mL/min (>60) Glucose Level 188 MG/DL (74-106) H Calcium Level 7.6 MG/DL (8.5-10.1) L Phosphorus Level 3.0 MG/DL (2.5-4.9) Magnesium Level 1.9 MG/DL (1.8-2.4) Total Bilirubin 0.3 MG/DL (0.2-1.0) Aspartate Amino Transf (AST/SGOT) 143 U/L (15-37) H Alanine Aminotransferase (ALT/SGPT) 400 U/L (12-78) H Alkaline Phosphatase 60 U/L (46-116) C-Reactive Protein, Quantitative 14.5 mg/dL (0.00-0.90) H Pro-B-Type Natriuretic Peptide 2301 pg/mL (0-125) H Total Protein 6.3 G/DL (6.4-8.2) L Albumin 2.4 G/DL (3.4-5.0) L Globulin 3.9 g/dL Albumin/Globulin Ratio 0.6 (1.0-2.7) L Random Vancomycin Level 8.3 ug/mL Test 07/07/19 11:06 Arterial Blood pH 7.386 (7.350-7.450) Arterial Blood Partial Pressure CO2 34.5 mmHg (35.0-45.0) L Arterial Blood Partial Pressure O2 163.2 mmHg (75.0-100.0) H Arterial Blood HCO3 20.2 mmol/L (22.0-26.0) L Arterial Blood Oxygen Saturation 98.5 % (95-100) Arterial Blood Base Excess -4.2 (-2-2) L Phan Test Positive Intake and Output 07/06/19 07/07/19 19:00 07:00 Intake Total 1403.57 ml 900 ml Output Total 665 ml 510 ml Balance 738.57 ml 390 ml IV Total 1403.57 ml 900 ml Output Urine Total 665 ml 510 ml Objective PHYSICAL EXAMINATION: GENERAL: The patient is a well-developed and well-nourished male, in moderate respiratory distress. HEENT: Eyes, pupils are equal and responsive to light and accommodation. Extraocular movements are intact. NECK: Supple without lymphadenopathy. CHEST: Mech Vent; Coarse breath sounds bilaterally with expiratory wheezes. Otherwise, without crackles. ABDOMINAL: Soft, nontender, and nondistended. Positive bowel sounds. No evidence of hepatosplenomegaly. Currently, no rebound or guarding noted. CARDIOVASCULAR: Tachycardic. Regular rhythm. S1 and S2 are normal without murmurs, rubs, or gallops. GENITOURINARY: Deferred. NEUROLOGICAL: Cranial nerves II to XII are grossly intact without focal deficits. EXTREMITIES: Negative for clubbing, cyanosis, or edema. Assessment/Plan Assessment/Plan ASSESSMENT: This is an 83-year-old male. 1. Dyspnea. 2. Respiratory distress. 3. Diabetes type 2. 4. Parkinson disease. 5. Hypercholesterolemia. 6. Dilated cardiomyopathy. 7. Dysphagia. 8. Benign prostatic hypertrophy. TREATMENT: 1. Dyspnea/respiratory distress. A Pulmonary consultation has been obtained with Dr. Kathryn Lopez. The patient is currently on [facility] vent. ABX=vanco, flagyl and cefepime intravenously. We will follow recommendations of Pulmonary. 2. Diabetes type 2. 3. Hypercholesterolemia. 4. Dilated cardiomyopathy. 5. Dysphagia. The patient is status post PEG placement. 6. Hypertensive heart disease. 7. Benign prostatic hypertrophy. 8. ID=Shukri Rodriguez MD Jul 07, 2019 15:16
--- NOTE | 2019-07-07 15:54 | NUR ---
NURSE NOTES: PT by bedside, VS stable, will continue to monitor PT.
--- NOTE | 2019-07-07 18:28 | NUR ---
NURSE NOTES: PT did not have BM; complete linens changed; cleaned, dried PT. Bed lowered to lowest position, bed alarm on. Will continue to monitor PT.
--- NOTE | 2019-07-07 19:10 | NUR ---
RESPIRATORY NOTE: RECEIVED PT ORALLY INTUBATED ON CURRENT VENT SETTINGS: AC RR16 VT650 FIO2 40%, PEEP 0. PT TAMAR CURRENT VENT SETTINGS. ETT 7.5 AT 23LL SECURE AND PATENT. SXN SMALL THICK WHITE SECRETIONS. PT HAS DIMINISHED BREATH SOUNDS. ALARMS ON AND AUDIBLE. VENT PLUGGED INTO RED OUTLET. AMBU BAG AT BEDSIDE. WILL CONTINUE MONITORING PT CLOSELY.
--- NOTE | 2019-07-07 19:13 | NUR ---
HAND-OFF: Report and PT given to VIRGIL Lovett.
--- NOTE | 2019-07-07 19:14 | NUR ---
NURSE NOTES: Endorsement received from VIRGIL Patel. Patient opens eyes spontaneously, makes eye contact. Follows simple commands. Sinus rhythm with 1st degree HB. No shortness of breath. Orally intubated with 7.5, 24 lipline. AC 16, 650, 40% FiO2. With right forearm g22, right IJ TLC. Receiving D5W at 75ml/hr. With bilateral soft wrists restraints. Skin normal in color, warm and dry. GT present, patent and intact. On NPO. Juan catheter draining to urimeter. Head of bed elevated. Call light within reach. Bed alarm on. Bed locked and in low position. Will continue the plan of care.
[2019-07-07] MEDS: Dyna-Hex 2% Top Sol 2oz TOPIC SCH (19:57)
[2019-07-07] MEDS: Cefepime HCl 1 GM in D5W 55 ML IVPB SCH (21:49)
--- NOTE | 2019-07-07 22:00 | NUR ---
NURSE NOTES: Patient asleep at this time. Appears comfortable, no sign of pain. Restraint discontinued at this time. Will continue to monitor.
[2019-07-08] VITALS (24 sets, daily range): BP systolic 121–164; BP diastolic 46–69
--- NOTE | 2019-07-08 | NUR ---
NURSE NOTES: Patient asleep. Arousable per light touch and name. Afebrile. Secretions suctioned. Noted with moderate amount of white secretion from mouth.
--- NOTE | 2019-07-08 02:00 | NUR ---
NURSE NOTES: Patient with episodes of attempting to grasp tubes. Unable to redirect. Bilateral soft wrists applied
--- NOTE | 2019-07-08 05:00 | NUR ---
`NURSE NOTES: Patient asleep. Vital signs stable
[2019-07-08 05:17] LABS: HEMATOCRIT 29.2 % (42.0-52.0); HEMOGLOBIN 9.6 G/DL (14.2-18.0); MEAN CORPUSCULAR VOLUME 84 FL (80-99); PLATELET COUNT 148 K/UL (150-450); RED BLOOD COUNT 3.47 M/UL (4.70-6.10); RED CELL DISTRIBUTION WIDTH 13.6 % (11.6-14.8)
[2019-07-08] MEDS: Hydrocortisone 100mg Inj IV SCH ×3 (05:18→22:11)
[2019-07-08 06:15] LABS: ALANINE AMINOTRANSFERASE 301 U/L (12-78); ALBUMIN 2.5 G/DL (3.4-5.0); ALBUMIN/GLOBULIN RATIO 0.6 (1.0-2.7); ALKALINE PHOSPHATASE 65 U/L (46-116); ANION GAP 9 mmol/L (5-15); ASPARTATE AMINO TRANSFERASE 71 U/L (15-37); BILIRUBIN,TOTAL 0.4 MG/DL (0.2-1.0); BLOOD UREA NITROGEN 27 mg/dL (7-18); CALCIUM 7.8 MG/DL (8.5-10.1); CARBON DIOXIDE 23 MMOL/L (21-32); CHLORIDE 118 MMOL/L (98-107); CREATININE 1.3 MG/DL (0.55-1.30); PHOSPHORUS 2.6 MG/DL (2.5-4.9); POTASSIUM 3.6 MMOL/L (3.5-5.1); SODIUM 150 MMOL/L (136-145)
--- NOTE | 2019-07-08 07:12 | NUR ---
HAND-OFF: Report given to VIRGIL Delgado.
--- NOTE | 2019-07-08 07:13 | NUR ---
NURSE NOTES: Pt received from VIRGIL Saul. Pt is awake in bed, opes eyes spontaneously and able to follow commands. Pupils are equal and round, sluggish light rxn, 3mm bilaterally. Bilateral radial and dorsalis pedis pulses bounding bilaterally 3+ Pt noted with ETT 7.5 24 cm at mid lip. Vent Settings: AC 16 TV 650 FiO2 40%. Bilateral lower lung lobes diminished upon auscultation. Right upper lung lobe noted with mild rhonchi and left upper lung lobe with fine crackles upon expiration. Pt currently NPO since admission- GT noted clamped. Bowel sounds hypoactive to all quadrants. Pt has a F/C draining light kristen urine. Skin alterations noted. Pt has a RFA 22g IV and RIJ TLC running D5W at 75 cc/hr. Bed in lowest position, pt in semi-ryan, SCDs on bilat lower extremities, side rails up x 3, call light within reach. will continue to monitor. Addendum: 07/08/19 at 1540 by Sandy Pillai RN Late entry: pt on PATHOLOGY SPECIALIST restraints, radial pulses palpable. skin to bilateral wrists intact without redness.
--- NOTE | 2019-07-08 08:00 | NUR ---
NURSE NOTES: Pt in no acute distress, oral care provided, pt repositioned, will continue to monitor.
[2019-07-08] MEDS: Pantoprazole Inj IV SCH ×2 (08:27→20:52)
[2019-07-08] MEDS: Vancomycin 750mg/NS 275ml IVPB SCH ×2 (08:46)
--- NOTE | 2019-07-08 09:10 | NUR ---
NURSE NOTES: Pt placed on CPAP with PS8 for weaning trial. Pt in no acute distress. ABGs to be drawn in [address] Orellana.
--- NOTE | 2019-07-08 09:16 | Cardiac Electrophysiology PN ---
Assessment/Plan Assessment/Plan 1. Status post bradycardic arrest with heart rate in the 20s. Off any sinus node or AV destinee blocking agents. 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 The first two troponins on admission were negative. 5 follow up troponins were mildly elevated likely due to Code. 2. NSTEMI. Due to arrest 3. Respiratory failure, currently intubated on the ventilator and broad- spectrum IV antibiotic Weaning in progress. D. Dimer positive. VQ scan pre code was low probability 3. Hypotension. Improved with IV fluid 5. Dehydration, hyperatremia. 6. Dysphagia, status post PEG placement. 7. Diabetes. 8. Benign prostatic hypertrophy. DW RN Subjective Subjective Intubated on the Vent. RN at bedside. No major bradycardia.Lowest HR 52. Off pressors Objective Last 24 Hour Vital Signs Date Time Temp Pulse Resp B/P (MAP) Pulse Ox O2 Delivery O2 Flow Rate FiO2 07/08/19 07:30 59 16 40 07/08/19 07:00 60 19 130/61 (84) 100 07/08/19 06:30 65 20 07/08/19 06:00 82 20 124/69 (87) 100 07/08/19 05:05 78 16 40 07/08/19 05:00 97 32 124/58 (80) 100 07/08/19 04:00 72 07/08/19 04:00 98.7 74 29 144/55 (84) 99 07/08/19 04:00 Mechanical Ventilator Mechanical Ventilator Mechanical Ventilator Mechanical Ventilator 07/08/19 04:00 40 07/08/19 03:00 67 16 40 07/08/19 03:00 57 31 151/59 (89) 100 07/08/19 02:00 57 33 156/62 (93) 100 07/08/19 01:05 65 16 40 07/08/19 01:00 79 32 159/65 (96) 100 07/08/19 00:00 98.9 69 23 158/62 (94) 99 07/08/19 00:00 80 07/08/19 00:00 Mechanical Ventilator Mechanical Ventilator Mechanical Ventilator Mechanical Ventilator 07/08/19 00:00 40 07/07/19 23:04 69 16 40 07/07/19 23:00 56 22 151/61 (91) 100 07/07/19 22:00 78 24 151/58 (89) 100 2/2/20 21:15 68 16 40 07/07/19 21:00 65 38 156/61 (92) 100 07/07/19 20:30 55 28 162/58 (92) 100 07/07/19 20:00 78 07/07/19 20:00 98.7 64 20 159/68 (98) 100 07/07/19 20:00 Mechanical Ventilator Mechanical Ventilator Mechanical Ventilator Mechanical Ventilator 07/07/19 20:00 40 07/07/19 19:10 67 16 40 07/07/19 19:00 70 37 147/50 (82) 100 07/07/19 18:00 59 20 144/59 (87) 100 07/07/19 17:25 61 16 40 07/07/19 17:00 62 23 148/65 (92) 100 07/07/19 16:00 40 07/07/19 16:00 98.6 62 22 142/65 (90) 100 07/07/19 16:00 63 07/07/19 16:00 Mechanical Ventilator Mechanical Ventilator Mechanical Ventilator Mechanical Ventilator 07/07/19 15:30 150/65 07/07/19 15:28 68 16 40 07/07/19 15:00 67 18 150/65 (93) 100 07/07/19 14:00 61 18 135/66 (89) 100 07/07/19 13:00 64 19 140/63 (88) 100 07/07/19 12:54 156/83 07/07/19 12:47 73 21 40 07/07/19 12:00 Mechanical Ventilator Mechanical Ventilator Mechanical Ventilator Mechanical Ventilator 07/07/19 12:00 98.6 62 28 147/74 (98) 100 07/07/19 12:00 61 07/07/19 12:00 40 07/07/19 11:22 67 28 40 40 07/07/19 11:00 62 26 155/57 (89) 100 07/07/19 10:00 62 27 145/63 (90) 100 Intake and Output 07/07/19 07/08/19 19:00 07:00 Intake Total 1275.00 ml 955 ml Output Total 500 ml 570 ml Balance 775.00 ml 385 ml IV Total 1275.00 ml 955 ml Output Urine Total 500 ml 570 ml Laboratory Tests Test 07/07/19 11:06 07/08/19 04:00 Arterial Blood pH 7.386 (7.350-7.450) Arterial Blood Partial Pressure CO2 34.5 mmHg (35.0-45.0) L Arterial Blood Partial Pressure O2 163.2 mmHg (75.0-100.0) H Arterial Blood HCO3 20.2 mmol/L (22.0-26.0) L Arterial Blood Oxygen Saturation 98.5 % (95-100) Arterial Blood Base Excess -4.2 (-2-2) L Phan Test Positive White Blood Count 9.0 K/UL (4.8-10.8) Red Blood Count 3.47 M/UL (4.70-6.10) L Hemoglobin 9.6 G/DL (14.2-18.0) L Hematocrit 29.2 % (42.0-52.0) L Mean Corpuscular Volume 84 FL (80-99) Mean Corpuscular Hemoglobin 27.6 PG (27.0-31.0) Mean Corpuscular Hemoglobin Concent 32.8 G/DL (32.0-36.0) Red Cell Distribution Width 13.6 % (11.6-14.8) Platelet Count 148 K/UL (150-450) L Mean Platelet Volume 7.2 FL (6.5-10.1) Neutrophils (%) (Auto) % (45.0-75.0) Lymphocytes (%) (Auto) % (20.0-45.0) Monocytes (%) (Auto) % (1.0-10.0) Eosinophils (%) (Auto) % (0.0-3.0) Basophils (%) (Auto) % (0.0-2.0) Neutrophils % (Manual) Pending Lymphocytes % (Manual) Pending Platelet Estimate Pending Platelet Morphology Pending Sodium Level 150 MMOL/L (136-145) H Potassium Level 3.6 MMOL/L (3.5-5.1) Chloride Level 118 MMOL/L (98-107) H Carbon Dioxide Level 23 MMOL/L (21-32) Anion Gap 9 mmol/L (5-15) Blood Urea Nitrogen 27 mg/dL (7-18) H Creatinine 1.3 MG/DL (0.55-1.30) Estimat Glomerular Filtration Rate mL/min (>60) Glucose Level 169 MG/DL (74-106) H Uric Acid 7.6 MG/DL (2.6-7.2) H Calcium Level 7.8 MG/DL (8.5-10.1) L Phosphorus Level 2.6 MG/DL (2.5-4.9) Magnesium Level 1.9 MG/DL (1.8-2.4) Total Bilirubin 0.4 MG/DL (0.2-1.0) Aspartate Amino Transf (AST/SGOT) 71 U/L (15-37) H Alanine Aminotransferase (ALT/SGPT) 301 U/L (12-78) H Alkaline Phosphatase 65 U/L (46-116) C-Reactive Protein, Quantitative 7.2 mg/dL (0.00-0.90) H Pro-B-Type Natriuretic Peptide 5037 pg/mL (0-125) H Total Protein 6.4 G/DL (6.4-8.2) Albumin 2.5 G/DL (3.4-5.0) L Globulin 3.9 g/dL Albumin/Globulin Ratio 0.6 (1.0-2.7) L Microbiology Date/Time Source Procedure Growth Status 07/06/19 11:40 Blood Blood Culture - Preliminary NO GROWTH AFTER 24 HOURS Resulted 07/06/19 11:30 Blood Blood Culture - Preliminary NO GROWTH AFTER 24 HOURS Resulted Objective HEAD AND NECK: He is orally intubated. Positive JVD. LUNGS: Decreased breath sounds. CARDIOVASCULAR: Tachycardic. ABDOMEN: Status post G-tube. EXTREMITIES: No pitting edema. Enio Santos MD Jul 08, 2019 09:15
--- NOTE | 2019-07-08 09:30 | NUR ---
NURSE NOTES: Spoke to Radha from microbiology lab. Per Radha, pt's VRE results are negative. Unable to view results on [employer] at this time.
--- NOTE | 2019-07-08 09:44 | NUR ---
Dr Mohr at bedside assessing pt and states there is no urgency for CT abd given pt's BUN/Cr are trending down. Pt to be sent down for CT Abd when feasible, possibly after extubation- OK with Dr. Esqueda.
--- NOTE | 2019-07-08 10:30 | NUR ---
NURSE NOTES: Dr Lopez at bedside assessing pt, ABG results reviewed. Pt to remain on AC mode until further orders from Dr Lopez- pt not stable enough to be extubated or taken down to CT per Dr. Lopez.
--- NOTE | 2019-07-08 10:45 | Pulmonolgy Critical Care Note ---
Critical Care - Asmt/Plan Problems: (1) Cardiac arrest with successful resuscitation (2) Respiratory failure with hypoxia (3) Hypotension (4) Parkinson disease (5) Feeding by G-tube (6) Diabetes mellitus (7) Hydronephrosis Respiratory: monitor respiratory rate, adjust FIO2, CXR Cardiac: continue to monitor HR/BP Renal: F/U I&O, keep IV fluid Infectious Disease: check cultures, continue antibiotics Gastrointestinal: continue feedings/current rate, hold feedings Endocrine: monitor blood sugar Hematologic: monitor H/H, transfuse if hgb<8.5 Neurologic: PRN Ativan, keep patient comfortable Affect: PRN ativan Prophylaxis: Protonix, Heparin Notes 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 Discussed with: nurses, consultants, 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 makerassociate property manager - Objective Last 24 Hour Vital Signs Date Time Temp Pulse Resp B/P (MAP) Pulse Ox O2 Delivery O2 Flow Rate FiO2 07/08/19 10:00 77 24 143/58 (86) 100 07/08/19 09:10 40 07/08/19 09:10 71 15 40 40 07/08/19 09:00 68 23 158/62 (94) 100 07/08/19 08:00 98.8 62 20 142/66 (91) 100 07/08/19 08:00 40 07/08/19 08:00 71 07/08/19 08:00 62 20 142/66 (91) 100 07/08/19 08:00 Mechanical Ventilator Mechanical Ventilator Mechanical Ventilator 07/08/19 07:30 59 16 40 07/08/19 07:00 60 19 130/61 (84) 100 07/08/19 06:30 65 20 07/08/19 06:00 82 20 124/69 (87) 100 07/08/19 05:05 78 16 40 07/08/19 05:00 97 32 124/58 (80) 100 07/08/19 04:00 72 07/08/19 04:00 98.7 74 29 144/55 (84) 99 07/08/19 04:00 Mechanical Ventilator Mechanical Ventilator Mechanical Ventilator Mechanical Ventilator 07/08/19 04:00 40 07/08/19 03:00 67 16 40 07/08/19 03:00 57 31 151/59 (89) 100 07/08/19 02:00 57 33 156/62 (93) 100 07/08/19 01:05 65 16 40 07/08/19 01:00 79 32 159/65 (96) 100 07/08/19 00:00 98.9 69 23 158/62 (94) 99 07/08/19 00:00 80 07/08/19 00:00 Mechanical Ventilator Mechanical Ventilator Mechanical Ventilator Mechanical Ventilator 07/08/19 00:00 40 07/07/19 23:04 69 16 40 07/07/19 23:00 56 22 151/61 (91) 100 07/07/19 22:00 78 24 151/58 (89) 100 07/07/19 21:15 68 16 40 07/07/19 21:00 65 38 156/61 (92) 100 07/07/19 20:30 55 28 162/58 (92) 100 07/07/19 20:00 78 07/07/19 20:00 98.7 64 20 159/68 (98) 100 07/07/19 20:00 Mechanical Ventilator Mechanical Ventilator Mechanical Ventilator Mechanical Ventilator 07/07/19 20:00 40 07/07/19 19:10 67 16 40 07/07/19 19:00 70 37 147/50 (82) 100 07/07/19 18:00 59 20 144/59 (87) 100 07/07/19 17:25 61 16 40 07/07/19 17:00 62 23 148/65 (92) 100 07/07/19 16:00 40 07/07/19 16:00 98.6 62 22 142/65 (90) 100 07/07/19 16:00 63 07/07/19 16:00 Mechanical Ventilator Mechanical Ventilator Mechanical Ventilator Mechanical Ventilator 07/07/19 15:30 150/65 07/07/19 15:28 68 16 40 07/07/19 15:00 67 18 150/65 (93) 100 07/07/19 14:00 61 18 135/66 (89) 100 07/07/19 13:00 64 19 140/63 (88) 100 07/07/19 12:54 156/83 07/07/19 12:47 73 21 40 07/07/19 12:00 Mechanical Ventilator Mechanical Ventilator Mechanical Ventilator Mechanical Ventilator 07/07/19 12:00 98.6 62 28 147/74 (98) 100 07/07/19 12:00 61 07/07/19 12:00 40 07/07/19 11:22 67 28 40 40 07/07/19 11:00 62 26 155/57 (89) 100 Status: awake Condition: critical HEENT: atraumatic Neck: full ROM Lungs: rhonchi Heart: HR/BP stable Abdomen: soft, non-tender Extremities: no C/C/E, edema Micro: Microbiology Date/Time Source Procedure Growth Status 07/06/19 11:40 Blood Blood Culture - Preliminary NO GROWTH AFTER 24 HOURS Resulted 07/06/19 11:30 Blood Blood Culture - Preliminary NO GROWTH AFTER 24 HOURS Resulted Critical Care - Subjective ROS Limited/Unobtainable: Yes Condition: critical EKG Rhythm: Sinus Rhythm FI02: 40 Vent Support Breath Rate: 16 Vent Support Mode: CPAP Vent Tidal Volume: 650 Sputum Amount: Small PEEP: 0.0 PIP: 8 I&O: Intake and Output 07/07/19 07/08/19 19:00 07:00 Intake Total 1275.00 ml 955 ml Output Total 500 ml 570 ml Balance 775.00 ml 385 ml IV Total 1275.00 ml 955 ml Output Urine Total 500 ml 570 ml ET-Tube: 7.5 ET Position: 24 Labs: Laboratory Tests Test 07/07/19 11:06 07/08/19 04:00 07/08/19 09:30 Arterial Blood pH 7.386 (7.350-7.450) 7.415 (7.350-7.450) Arterial Blood Partial Pressure CO2 34.5 mmHg (35.0-45.0) L 31.0 mmHg (35.0-45.0) L Arterial Blood Partial Pressure O2 163.2 mmHg (75.0-100.0) H 139.1 mmHg (75.0-100.0) H Arterial Blood HCO3 20.2 mmol/L (22.0-26.0) L 19.4 mmol/L (22.0-26.0) L Arterial Blood Oxygen Saturation 98.5 % (95-100) 98.2 % (95-100) Arterial Blood Base Excess -4.2 (-2-2) L -4.4 (-2-2) L Phan Test Positive Positive White Blood Count 9.0 K/UL (4.8-10.8) Red Blood Count 3.47 M/UL (4.70-6.10) L Hemoglobin 9.6 G/DL (14.2-18.0) L Hematocrit 29.2 % (42.0-52.0) L Mean Corpuscular Volume 84 FL (80-99) Mean Corpuscular Hemoglobin 27.6 PG (27.0-31.0) Mean Corpuscular Hemoglobin Concent 32.8 G/DL (32.0-36.0) Red Cell Distribution Width 13.6 % (11.6-14.8) Platelet Count 148 K/UL (150-450) L Mean Platelet Volume 7.2 FL (6.5-10.1) Neutrophils (%) (Auto) % (45.0-75.0) Lymphocytes (%) (Auto) % (20.0-45.0) Monocytes (%) (Auto) % (1.0-10.0) Eosinophils (%) (Auto) % (0.0-3.0) Basophils (%) (Auto) % (0.0-2.0) Differential Total Cells Counted 100 Neutrophils % (Manual) 86 % (45-75) H Lymphocytes % (Manual) 8 % (20-45) L Monocytes % (Manual) 6 % (1-10) Eosinophils % (Manual) 0 % (0-3) Basophils % (Manual) 0 % (0-2) Band Neutrophils 0 % (0-8) Platelet Estimate Decreased L Platelet Morphology Normal Hypochromasia 1+ Sodium Level 150 MMOL/L (136-145) H Potassium Level 3.6 MMOL/L (3.5-5.1) Chloride Level 118 MMOL/L (98-107) H Carbon Dioxide Level 23 MMOL/L (21-32) Anion Gap 9 mmol/L (5-15) Blood Urea Nitrogen 27 mg/dL (7-18) H Creatinine 1.3 MG/DL (0.55-1.30) Estimat Glomerular Filtration Rate mL/min (>60) Glucose Level 169 MG/DL (74-106) H Uric Acid 7.6 MG/DL (2.6-7.2) H Calcium Level 7.8 MG/DL (8.5-10.1) L Phosphorus Level 2.6 MG/DL (2.5-4.9) Magnesium Level 1.9 MG/DL (1.8-2.4) Total Bilirubin 0.4 MG/DL (0.2-1.0) Aspartate Amino Transf (AST/SGOT) 71 U/L (15-37) H Alanine Aminotransferase (ALT/SGPT) 301 U/L (12-78) H Alkaline Phosphatase 65 U/L (46-116) C-Reactive Protein, Quantitative 7.2 mg/dL (0.00-0.90) H Pro-B-Type Natriuretic Peptide 5037 pg/mL (0-125) H Total Protein 6.4 G/DL (6.4-8.2) Albumin 2.5 G/DL (3.4-5.0) L Globulin 3.9 g/dL Albumin/Globulin Ratio 0.6 (1.0-2.7) L Kathryn Lopez MD Jul 08, 2019 10:45
[2019-07-08] MEDS: Nitroglycerin Patch 0.4mg TDERMAL SCH (11:55)
--- NOTE | 2019-07-08 12:30 | NUR ---
NURSE NOTES: Pt cleaned and repositioned, oral care provided, no acute distress noted. Pt still obeys commands and opens eyes spontaneously. Pt observed with RR 35-42 and placed back on AC mode after weaning trial on CPAP w/ PS 8. Pt's at bedside. Start TF per Nutrition recommendations per Dr. Lopez.
--- NOTE | 2019-07-08 13:00 | Urology Progress Note ---
Assessment/Plan Assessment/Plan: 1. Left-sided hydronephrosis. 2. Proteinuria. 3. Hematuria. 4. Pyuria. 5. Urinary retention. 6. BPH history. 7. Rule out neurogenic bladder. 8. Mild acute kidney injury, improved. monitor clinically maintain nixon hand irrigate PRN abx as ordered f/u on blood cx CT A/P ordered, to be done once more medically stabilized monitor renal fxn Subjective Allergies: Coded Allergies: PENICILLINS (Verified Allergy, Unknown, 07/04/19) Subjective all noted, remains on vent Objective Last 24 Hour Vital Signs Date Time Temp Pulse Resp B/P (MAP) Pulse Ox O2 Delivery O2 Flow Rate FiO2 07/08/19 12:10 40 07/08/19 12:00 99.0 69 29 133/58 (83) 99 07/08/19 11:55 151/67 07/08/19 11:29 71 15 35 35 07/08/19 11:00 65 26 138/60 (86) 100 07/08/19 10:00 77 24 143/58 (86) 100 07/08/19 09:10 40 07/08/19 09:10 71 15 40 40 07/08/19 09:00 68 23 158/62 (94) 100 07/08/19 08:00 98.8 62 20 142/66 (91) 100 07/08/19 08:00 40 07/08/19 08:00 71 07/08/19 08:00 62 20 142/66 (91) 100 07/08/19 08:00 Mechanical Ventilator Mechanical Ventilator Mechanical Ventilator 07/08/19 07:30 59 16 40 07/08/19 07:00 60 19 130/61 (84) 100 07/08/19 06:30 65 20 07/08/19 06:00 82 20 124/69 (87) 100 07/08/19 05:05 78 16 40 07/08/19 05:00 97 32 124/58 (80) 100 07/08/19 04:00 72 07/08/19 04:00 98.7 74 29 144/55 (84) 99 07/08/19 04:00 Mechanical Ventilator Mechanical Ventilator Mechanical Ventilator Mechanical Ventilator 07/08/19 04:00 40 07/08/19 03:00 67 16 40 07/08/19 03:00 57 31 151/59 (89) 100 07/08/19 02:00 57 33 156/62 (93) 100 07/08/19 01:05 65 16 40 07/08/19 01:00 79 32 159/65 (96) 100 07/08/19 00:00 98.9 69 23 158/62 (94) 99 07/08/19 00:00 80 07/08/19 00:00 Mechanical Ventilator Mechanical Ventilator Mechanical Ventilator Mechanical Ventilator 07/08/19 00:00 40 07/07/19 23:04 69 16 40 07/07/19 23:00 56 22 151/61 (91) 100 07/07/19 22:00 78 24 151/58 (89) 100 07/07/19 21:15 68 16 40 07/07/19 21:00 65 38 156/61 (92) 100 07/07/19 20:30 55 28 162/58 (92) 100 07/07/19 20:00 78 07/07/19 20:00 98.7 64 20 159/68 (98) 100 07/07/19 20:00 Mechanical Ventilator Mechanical Ventilator Mechanical Ventilator Mechanical Ventilator 07/07/19 20:00 40 07/07/19 19:10 67 16 40 07/07/19 19:00 70 37 147/50 (82) 100 07/07/19 18:00 59 20 144/59 (87) 100 07/07/19 17:25 61 16 40 07/07/19 17:00 62 23 148/65 (92) 100 07/07/19 16:00 40 07/07/19 16:00 98.6 62 22 142/65 (90) 100 07/07/19 16:00 63 07/07/19 16:00 Mechanical Ventilator Mechanical Ventilator Mechanical Ventilator Mechanical Ventilator 07/07/19 15:30 150/65 07/07/19 15:28 68 16 40 07/07/19 15:00 67 18 150/65 (93) 100 07/07/19 14:00 61 18 135/66 (89) 100 Intake and Output 07/07/19 07/08/19 18:59 06:59 Intake Total 1275.00 ml 955 ml Output Total 490 ml 560 ml Balance 785.00 ml 395 ml IV Total 1275.00 ml 955 ml Output Urine Total 490 ml 560 ml Microbiology Date/Time Source Procedure Growth Status 07/06/19 11:40 Blood Blood Culture - Preliminary NO GROWTH AFTER 24 HOURS Resulted 07/04/19 10:15 Sputum Gram Stain - Final Complete 07/04/19 10:15 Sputum Culture - Final Nicolle Albicans Usual Respiratory Valery Complete 07/04/19 01:25 Urine,Clean Catch Urine Culture - Final NO GROWTH AFTER 48 HOURS Complete 07/04/19 00:43 Rectum - Final NO CARBAPENEM-RESISTANT ENTEROBACTERI... Complete Current Medications Medications (Trade) Dose Ordered Sig/Genoveva Route PRN Reason Start Time Stop Time Status Last Admin Dose Admin Acetaminophen (Tylenol) 650 mg Q6H PRN ORAL Mild Pain/Temp > 100.5 07/05/19 15:00 08/03/19 14:59 07/05/19 21:22 Albuterol/ Ipratropium (Albuterol/ Ipratropium) 3 ml Q4H PRN HHN Shortness of Breath 07/05/19 15:30 07/09/19 07:29 Barium Sulfate (Readi-Cat 2) 450 ml NOW PRN ORAL Radiology Procedure 07/07/19 11:30 07/09/19 11:18 Cefepime HCl 1 gm/ Dextrose 55 ml @ 110 mls/hr Q24H IVPB 07/05/19 21:00 07/11/19 20:59 07/07/19 21:49 Chlorhexidine Gluconate (Alondra-Hex 2%) 1 applic DAILY@2000 TOPIC 07/05/19 20:00 08/04/19 19:59 07/07/19 19:57 Dextrose 1,000 ml @ 75 mls/hr [id number] IV 07/07/19 10:45 08/06/19 10:44 07/08/19 00:24 Hydralazine HCl (Apresoline) 10 mg Q4H PRN IV bp over 160 syst 07/06/19 12:30 08/05/19 12:29 Hydrocortisone (Solu-CORTEF) 100 mg EVERY 8 HOURS IV 07/05/19 14:30 08/04/19 14:29 07/08/19 05:18 Lorazepam (Ativan 2mg/ml 1ml) 2 mg Q4H PRN IV For Anxiety 07/05/19 15:15 07/12/19 11:14 Metronidazole 100 ml @ 100 mls/hr Q12HR IVPB 07/05/19 21:00 07/11/19 08:59 07/08/19 08:26 Morphine Sulfate (Morphine Sulfate) 4 mg Q4H PRN IVP For Severe Pain (6 to 10) 07/05/19 15:15 07/12/19 11:14 Nitroglycerin (Ntg) 1 patch Q24H TDERMAL 07/06/19 12:30 08/05/19 12:29 07/08/19 11:55 Norepinephrine Bitartrate 4 mg/ Dextrose 250 ml @ 0 mls/hr Q24H IV 07/06/19 15:30 08/04/19 15:29 Pantoprazole (Protonix) 40 mg Q12HR IV 07/05/19 21:00 08/04/19 11:14 07/08/19 08:27 Promethazine HCl/ Codeine (Phenergan with Codeine) 5 ml Q4H PRN ORAL For Cough 07/05/19 15:30 08/03/19 07:29 Vancomycin HCl (Vanco rx to dose) 1 ea DAILY PRN MISC Per rx protocol 07/06/19 09:00 08/03/19 08:59 Vancomycin HCl 750 mg/Sodium Chloride 275 ml @ 183.333 mls/hr Q24H IVPB 07/07/19 10:00 07/12/19 09:59 07/08/19 08:46 Laboratory Tests 07/08/19 04:00: White Blood Count 9.0, Red Blood Count 3.47L, Hemoglobin 9.6L, Hematocrit 29.2L , Mean Corpuscular Volume 84, Mean Corpuscular Hemoglobin 27.6, Mean Corpuscular Hemoglobin Concent 32.8, Red Cell Distribution Width 13.6, Platelet Count 148L, Mean Platelet Volume 7.2, Neutrophils (%) (Auto) , Lymphocytes (%) ( Auto) , Monocytes (%) (Auto) , Eosinophils (%) (Auto) , Basophils (%) (Auto) , Differential Total Cells Counted 100, Neutrophils % (Manual) 86H, Lymphocytes % (Manual) 8L, Monocytes % (Manual) 6, Eosinophils % (Manual) 0, Basophils % ( Manual) 0, Band Neutrophils 0, Platelet Estimate DecreasedL, Platelet Morphology Normal, Hypochromasia 1+, Sodium Level 150H, Potassium Level 3.6, Chloride Level 118H, Carbon Dioxide Level 23, Anion Gap 9, Blood Urea Nitrogen 27H, Creatinine 1.3, Estimat Glomerular Filtration Rate , Glucose Level 169H, Uric Acid 7.6H, Calcium Level 7.8L, Phosphorus Level 2.6, Magnesium Level 1.9, Total Bilirubin 0.4, Aspartate Amino Transf (AST/SGOT) 71H, Alanine Aminotransferase (ALT/SGPT) 301H, Alkaline Phosphatase 65, C-Reactive Protein, Quantitative 7.2H, Pro-B-Type Natriuretic Peptide 5037H, Total Protein 6.4, Albumin 2.5L, Globulin 3.9, Albumin/Globulin Ratio 0.6L 07/08/19 09:30: Arterial Blood pH 7.415, Arterial Blood Partial Pressure CO2 31.0L, Arterial Blood Partial Pressure O2 139.1H, Arterial Blood HCO3 19.4L, Arterial Blood Oxygen Saturation 98.2, Arterial Blood Base Excess -4.4L, Phan Test Positive Height (Feet): 5 Height (Inches): 8.00 Weight (Pounds): 162 Objective exam stable nixon indwelling urine yellow/kristen, occasional debris Clayton Callejas MD Jul 08, 2019 13:00
--- NOTE | 2019-07-08 13:13 | Infectious Diseases Prog Note ---
Assessment/Plan Assessment/Plan Assessment: Shock s/p cardiac arrest 07/05 Sepsis Probable UTI Acute hypoxic respiratory failure, intubated 07/05 Aspiration pneumonia vs pneumonitis Gram positive bacteremia- contaminant -07/06 Bcx NTD -07/05 CXR:Mild CHF -u/a wbc 5-10, nit neg, leuk +2; ucx Neg -Bcx 06/08 dipteriods -sp cx usual resp rupert -CXR: No acute process -influenza sc neg -v. duplex: no DVT -V/q scan:Findings are deemed low probability for pulmonary embolus Fever; SP No leukocytosis CARA; improving Dm2 dysphagia s/p GT hx of PNA parkinson disease HTN bed bound NH resident Plan: -D/c empiric IV Vancomycin #5 -Continue empiric Cefepime #5 and Flagyl #4 -07/04 SP Levaquin x1 -f/u cx -Monitor CBC/CMP, temperatures -aspiration precautions -ICU/ETT/GT care -Cards, nephro f/u -f/u repeat Bcx x2 Thank you for this consultation. Will continue to follow along with you. Discussed with RN. Subjective Allergies: Coded Allergies: PENICILLINS (Verified Allergy, Unknown, 07/04/19) Subjective afebrile >48hrs remains in ICU intubated repeat Bcx NTD no pressors Objective Vital Signs Last 24 Hour Vital Signs Date Time Temp Pulse Resp B/P (MAP) Pulse Ox O2 Delivery O2 Flow Rate FiO2 07/08/19 13:00 57 33 124/48 (73) 100 07/08/19 12:10 40 07/08/19 12:00 99.0 69 29 133/58 (83) 99 07/08/19 12:00 Mechanical Ventilator Mechanical Ventilator Mechanical Ventilator 07/08/19 11:55 151/67 07/08/19 11:29 71 15 35 35 07/08/19 11:00 65 26 138/60 (86) 100 07/08/19 10:00 77 24 143/58 (86) 100 07/08/19 09:10 40 07/08/19 09:10 71 15 40 40 07/08/19 09:00 68 23 158/62 (94) 100 07/08/19 08:00 98.8 62 20 142/66 (91) 100 07/08/19 08:00 40 2/3/20 08:00 71 07/08/19 08:00 62 20 142/66 (91) 100 07/08/19 08:00 Mechanical Ventilator Mechanical Ventilator Mechanical Ventilator 07/08/19 07:30 59 16 40 07/08/19 07:00 60 19 130/61 (84) 100 07/08/19 06:30 65 20 07/08/19 06:00 82 20 124/69 (87) 100 07/08/19 05:05 78 16 40 07/08/19 05:00 97 32 124/58 (80) 100 07/08/19 04:00 72 07/08/19 04:00 98.7 74 29 144/55 (84) 99 07/08/19 04:00 Mechanical Ventilator Mechanical Ventilator Mechanical Ventilator Mechanical Ventilator 07/08/19 04:00 40 07/08/19 03:00 67 16 40 07/08/19 03:00 57 31 151/59 (89) 100 07/08/19 02:00 57 33 156/62 (93) 100 07/08/19 01:05 65 16 40 07/08/19 01:00 79 32 159/65 (96) 100 07/08/19 00:00 98.9 69 23 158/62 (94) 99 07/08/19 00:00 80 07/08/19 00:00 Mechanical Ventilator Mechanical Ventilator Mechanical Ventilator Mechanical Ventilator 07/08/19 00:00 40 07/07/19 23:04 69 16 40 07/07/19 23:00 56 22 151/61 (91) 100 07/07/19 22:00 78 24 151/58 (89) 100 07/07/19 21:15 68 16 40 07/07/19 21:00 65 38 156/61 (92) 100 07/07/19 20:30 55 28 162/58 (92) 100 07/07/19 20:00 78 07/07/19 20:00 98.7 64 20 159/68 (98) 100 07/07/19 20:00 Mechanical Ventilator Mechanical Ventilator Mechanical Ventilator Mechanical Ventilator 07/07/19 20:00 40 07/07/19 19:10 67 16 40 07/07/19 19:00 70 37 147/50 (82) 100 07/07/19 18:00 59 20 144/59 (87) 100 07/07/19 17:25 61 16 40 07/07/19 17:00 62 23 148/65 (92) 100 07/07/19 16:00 40 07/07/19 16:00 98.6 62 22 142/65 (90) 100 07/07/19 16:00 63 07/07/19 16:00 Mechanical Ventilator Mechanical Ventilator Mechanical Ventilator Mechanical Ventilator 07/07/19 15:30 150/65 07/07/19 15:28 68 16 40 07/07/19 15:00 67 18 150/65 (93) 100 07/07/19 14:00 61 18 135/66 (89) 100 Height (Feet): 5 Height (Inches): 8.00 Weight (Pounds): 162 Objective General Appearance: cachetic, thin Lines, tubes and drains: peripheral HEENT: normocephalic, atraumatic Neck: non-tender, normal alignment Respiratory/Chest: chest wall non-tender, lungs clear Breasts: no masses Cardiovascular/Chest: normal peripheral pulses, normal rate Abdomen: normal bowel sounds, non tender, hyperactive bowel sounds Genitourinary/Rectal: normal genital exam Extremities: normal range of motion Skin Exam: normal pigmentation Microbiology Date/Time Source Procedure Growth Status 07/06/19 11:40 Blood Blood Culture - Preliminary NO GROWTH AFTER 24 HOURS Resulted 07/06/19 11:30 Blood Blood Culture - Preliminary NO GROWTH AFTER 24 HOURS Resulted Laboratory Tests Test 07/08/19 04:00 07/08/19 09:30 White Blood Count 9.0 K/UL (4.8-10.8) Red Blood Count 3.47 M/UL (4.70-6.10) L Hemoglobin 9.6 G/DL (14.2-18.0) L Hematocrit 29.2 % (42.0-52.0) L Mean Corpuscular Volume 84 FL (80-99) Mean Corpuscular Hemoglobin 27.6 PG (27.0-31.0) Mean Corpuscular Hemoglobin Concent 32.8 G/DL (32.0-36.0) Red Cell Distribution Width 13.6 % (11.6-14.8) Platelet Count 148 K/UL (150-450) L Mean Platelet Volume 7.2 FL (6.5-10.1) Neutrophils (%) (Auto) % (45.0-75.0) Lymphocytes (%) (Auto) % (20.0-45.0) Monocytes (%) (Auto) % (1.0-10.0) Eosinophils (%) (Auto) % (0.0-3.0) Basophils (%) (Auto) % (0.0-2.0) Differential Total Cells Counted 100 Neutrophils % (Manual) 86 % (45-75) H Lymphocytes % (Manual) 8 % (20-45) L Monocytes % (Manual) 6 % (1-10) Eosinophils % (Manual) 0 % (0-3) Basophils % (Manual) 0 % (0-2) Band Neutrophils 0 % (0-8) Platelet Estimate Decreased L Platelet Morphology Normal Hypochromasia 1+ Sodium Level 150 MMOL/L (136-145) H Potassium Level 3.6 MMOL/L (3.5-5.1) Chloride Level 118 MMOL/L (98-107) H Carbon Dioxide Level 23 MMOL/L (21-32) Anion Gap 9 mmol/L (5-15) Blood Urea Nitrogen 27 mg/dL (7-18) H Creatinine 1.3 MG/DL (0.55-1.30) Estimat Glomerular Filtration Rate mL/min (>60) Glucose Level 169 MG/DL (74-106) H Uric Acid 7.6 MG/DL (2.6-7.2) H Calcium Level 7.8 MG/DL (8.5-10.1) L Phosphorus Level 2.6 MG/DL (2.5-4.9) Magnesium Level 1.9 MG/DL (1.8-2.4) Total Bilirubin 0.4 MG/DL (0.2-1.0) Aspartate Amino Transf (AST/SGOT) 71 U/L (15-37) H Alanine Aminotransferase (ALT/SGPT) 301 U/L (12-78) H Alkaline Phosphatase 65 U/L (46-116) C-Reactive Protein, Quantitative 7.2 mg/dL (0.00-0.90) H Pro-B-Type Natriuretic Peptide 5037 pg/mL (0-125) H Total Protein 6.4 G/DL (6.4-8.2) Albumin 2.5 G/DL (3.4-5.0) L Globulin 3.9 g/dL Albumin/Globulin Ratio 0.6 (1.0-2.7) L Arterial Blood pH 7.415 (7.350-7.450) Arterial Blood Partial Pressure CO2 31.0 mmHg (35.0-45.0) L Arterial Blood Partial Pressure O2 139.1 mmHg (75.0-100.0) H Arterial Blood HCO3 19.4 mmol/L (22.0-26.0) L Arterial Blood Oxygen Saturation 98.2 % (95-100) Arterial Blood Base Excess -4.4 (-2-2) L Phan Test Positive Current Medications Medications (Trade) Dose Ordered Sig/Genoveva Route PRN Reason Start Time Stop Time Status Last Admin Dose Admin Acetaminophen (Tylenol) 650 mg Q6H PRN ORAL Mild Pain/Temp > 100.5 07/05/19 15:00 08/03/19 14:59 07/05/19 21:22 Albuterol/ Ipratropium (Albuterol/ Ipratropium) 3 ml Q4H PRN HHN Shortness of Breath 07/05/19 15:30 07/09/19 07:29 Barium Sulfate (Readi-Cat 2) 450 ml NOW PRN ORAL Radiology Procedure 07/07/19 11:30 07/09/19 11:18 Cefepime HCl 1 gm/ Dextrose 55 ml @ 110 mls/hr Q24H IVPB 07/05/19 21:00 07/11/19 20:59 07/07/19 21:49 Chlorhexidine Gluconate (Alondra-Hex 2%) 1 applic DAILY@2000 TOPIC 07/05/19 20:00 08/04/19 19:59 07/07/19 19:57 Dextrose 1,000 ml @ 75 mls/hr [id number] IV 07/07/19 10:45 08/06/19 10:44 07/08/19 13:00 Hydralazine HCl (Apresoline) 10 mg Q4H PRN IV bp over 160 syst 07/06/19 12:30 08/05/19 12:29 Hydrocortisone (Solu-CORTEF) 100 mg EVERY 8 HOURS IV 07/05/19 14:30 08/04/19 14:29 07/08/19 13:00 Lorazepam (Ativan 2mg/ml 1ml) 2 mg Q4H PRN IV For Anxiety 07/05/19 15:15 07/12/19 11:14 Metronidazole 100 ml @ 100 mls/hr Q12HR IVPB 07/05/19 21:00 07/11/19 08:59 07/08/19 08:26 Morphine Sulfate (Morphine Sulfate) 4 mg Q4H PRN IVP For Severe Pain (6 to 10) 07/05/19 15:15 07/12/19 11:14 Nitroglycerin (Ntg) 1 patch Q24H TDERMAL 07/06/19 12:30 08/05/19 12:29 07/08/19 11:55 Norepinephrine Bitartrate 4 mg/ Dextrose 250 ml @ 0 mls/hr Q24H IV 07/06/19 15:30 08/04/19 15:29 Pantoprazole (Protonix) 40 mg Q12HR IV 07/05/19 21:00 08/04/19 11:14 07/08/19 08:27 Promethazine HCl/ Codeine (Phenergan with Codeine) 5 ml Q4H PRN ORAL For Cough 07/05/19 15:30 08/03/19 07:29 Vancomycin HCl (Vanco rx to dose) 1 ea DAILY PRN MISC Per rx protocol 07/06/19 09:00 08/03/19 08:59 Vancomycin HCl 750 mg/Sodium Chloride 275 ml @ 183.333 mls/hr Q24H IVPB 07/07/19 10:00 07/12/19 09:59 07/08/19 08:46 Mirian Page M.D. Jul 08, 2019 13:13
--- NOTE | 2019-07-08 13:26 | Nephrology Progress Note ---
Assessment/Plan Problem List: (1) CARA (acute kidney injury) (2) Cardiac arrest with successful resuscitation (3) Respiratory failure with hypoxia (4) Hydronephrosis Assessment patient have Cara due to Low BP and s/p arrest elevated liver enzymes for same reason others: 1. Acute hypoxemic respiratory failure. 2. Hypotension possible sepsis. 3. Diabetes type 2. 4. Parkinson disease. 5. Hypercholesterolemia. 6. EjFx 65% reported 7. Dysphagia. 8. Benign prostatic hypertrophy. Plan Plan: change IV to D5w Nitro- Phos supplement as needed keep BP above 100 syst Pulm support monitor renal parameters VAL[place]: Moderate left hydronephrosis. Juan catheter. Echogenic right kidney. Suspected medical renal disease. Subjective ROS Limited/Unobtainable: Yes Objective Objective Last 24 Hour Vital Signs Date Time Temp Pulse Resp B/P (MAP) Pulse Ox O2 Delivery O2 Flow Rate FiO2 07/08/19 13:00 57 33 124/48 (73) 100 07/08/19 12:10 40 07/08/19 12:00 69 07/08/19 12:00 99.0 69 29 133/58 (83) 99 07/08/19 12:00 Mechanical Ventilator Mechanical Ventilator Mechanical Ventilator 07/08/19 11:55 151/67 07/08/19 11:29 71 15 35 35 07/08/19 11:00 65 26 138/60 (86) 100 07/08/19 10:00 77 24 143/58 (86) 100 07/08/19 09:10 40 07/08/19 09:10 71 15 40 40 07/08/19 09:00 68 23 158/62 (94) 100 07/08/19 08:00 98.8 62 20 142/66 (91) 100 07/08/19 08:00 40 07/08/19 08:00 71 07/08/19 08:00 62 20 142/66 (91) 100 07/08/19 08:00 Mechanical Ventilator Mechanical Ventilator Mechanical Ventilator 07/08/19 07:30 59 16 40 07/08/19 07:00 60 19 130/61 (84) 100 07/08/19 06:30 65 20 07/08/19 06:00 82 20 124/69 (87) 100 07/08/19 05:05 78 16 40 07/08/19 05:00 97 32 124/58 (80) 100 07/08/19 04:00 72 07/08/19 04:00 98.7 74 29 144/55 (84) 99 07/08/19 04:00 Mechanical Ventilator Mechanical Ventilator Mechanical Ventilator Mechanical Ventilator 07/08/19 04:00 40 07/08/19 03:00 67 16 40 07/08/19 03:00 57 31 151/59 (89) 100 07/08/19 02:00 57 33 156/62 (93) 100 07/08/19 01:05 65 16 40 07/08/19 01:00 79 32 159/65 (96) 100 07/08/19 00:00 98.9 69 23 158/62 (94) 99 07/08/19 00:00 80 07/08/19 00:00 Mechanical Ventilator Mechanical Ventilator Mechanical Ventilator Mechanical Ventilator 07/08/19 00:00 40 07/07/19 23:04 69 16 40 07/07/19 23:00 56 22 151/61 (91) 100 07/07/19 22:00 78 24 151/58 (89) 100 07/07/19 21:15 68 16 40 07/07/19 21:00 65 38 156/61 (92) 100 07/07/19 20:30 55 28 162/58 (92) 100 07/07/19 20:00 78 07/07/19 20:00 98.7 64 20 159/68 (98) 100 07/07/19 20:00 Mechanical Ventilator Mechanical Ventilator Mechanical Ventilator Mechanical Ventilator 07/07/19 20:00 40 07/07/19 19:10 67 16 40 07/07/19 19:00 70 37 147/50 (82) 100 07/07/19 18:00 59 20 144/59 (87) 100 07/07/19 17:25 61 16 40 07/07/19 17:00 62 23 148/65 (92) 100 07/07/19 16:00 40 07/07/19 16:00 98.6 62 22 142/65 (90) 100 07/07/19 16:00 63 07/07/19 16:00 Mechanical Ventilator Mechanical Ventilator Mechanical Ventilator Mechanical Ventilator 07/07/19 15:30 150/65 07/07/19 15:28 68 16 40 07/07/19 15:00 67 18 150/65 (93) 100 07/07/19 14:00 61 18 135/66 (89) 100 Intake and Output 07/07/19 07/08/19 19:00 07:00 Intake Total 1275.00 ml 955 ml Output Total 500 ml 570 ml Balance 775.00 ml 385 ml IV Total 1275.00 ml 955 ml Output Urine Total 500 ml 570 ml Laboratory Tests 07/08/19 04:00: White Blood Count 9.0, Red Blood Count 3.47L, Hemoglobin 9.6L, Hematocrit 29.2L , Mean Corpuscular Volume 84, Mean Corpuscular Hemoglobin 27.6, Mean Corpuscular Hemoglobin Concent 32.8, Red Cell Distribution Width 13.6, Platelet Count 148L, Mean Platelet Volume 7.2, Neutrophils (%) (Auto) , Lymphocytes (%) ( Auto) , Monocytes (%) (Auto) , Eosinophils (%) (Auto) , Basophils (%) (Auto) , Differential Total Cells Counted 100, Neutrophils % (Manual) 86H, Lymphocytes % (Manual) 8L, Monocytes % (Manual) 6, Eosinophils % (Manual) 0, Basophils % ( Manual) 0, Band Neutrophils 0, Platelet Estimate DecreasedL, Platelet Morphology Normal, Hypochromasia 1+, Sodium Level 150H, Potassium Level 3.6, Chloride Level 118H, Carbon Dioxide Level 23, Anion Gap 9, Blood Urea Nitrogen 27H, Creatinine 1.3, Estimat Glomerular Filtration Rate , Glucose Level 169H, Uric Acid 7.6H, Calcium Level 7.8L, Phosphorus Level 2.6, Magnesium Level 1.9, Total Bilirubin 0.4, Aspartate Amino Transf (AST/SGOT) 71H, Alanine Aminotransferase (ALT/SGPT) 301H, Alkaline Phosphatase 65, C-Reactive Protein, Quantitative 7.2H, Pro-B-Type Natriuretic Peptide 5037H, Total Protein 6.4, Albumin 2.5L, Globulin 3.9, Albumin/Globulin Ratio 0.6L 07/08/19 09:30: Arterial Blood pH 7.415, Arterial Blood Partial Pressure CO2 31.0L, Arterial Blood Partial Pressure O2 139.1H, Arterial Blood HCO3 19.4L, Arterial Blood Oxygen Saturation 98.2, Arterial Blood Base Excess -4.4L, Phan Test Positive Height (Feet): 5 Height (Inches): 8.00 Weight (Pounds): 162 General Appearance: no apparent distress EENT: other - vented Cardiovascular: normal rate Respiratory/Chest: decreased breath sounds Abdomen: soft Oskar Mohr MD Jul 08, 2019 13:26
--- NOTE | 2019-07-08 13:34 | Diagnostic Imaging Report ---
Indication: Dyspnea Comparison: 07/06/2019 A single view chest radiograph was obtained. Findings: Central venous catheter noted once again. Mild pulmonary vascular congestion demonstrated currently. Heart is enlarged. IMPRESSION: Slightly worsening CHF
--- NOTE | 2019-07-08 13:44 | NUR ---
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 98.8 HR 71 RR 24 B/P 142/66 CPAP TV 650 FIO2 40% PEEP 5 PS 8 PH. 7.41 PCO2 31.0 PO2 139.1 HCO3 19.4 O2 SAT 98.2 NA 150 BUN 27 AST 71 ALT 301 BNP 537 CXR= WORSENING CHF IS: IVF D5@ 75ML/HR VANCO IV CEFEPIME IV FLAGYL IV PROTONIX IV ICU STATUS
--- NOTE | 2019-07-08 14:06 | NUR ---
RD ASSESSMENT & RECOMMENDATIONS SEE CARE ACTIVITY FOR COMPLETE ASSESSMENT DAILY ESTIMATED NEEDS: Needs based on Critical care, wound/ 67.7kg 22-28 kcals/kg 9416-0388 total kcals 1.25-2 g protein/kg 85-135 g total protein 25-30 mL/kg 2513-7381 total fluid mLs NUTRITION DIAGNOSIS: * Increased kcal/prot needs R/T wound healing as evidenced by pt admitted w/ resolving full thickness wound @ sacrum and non-blanching erythema @ BL heels. 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 CURRENT TF:Vital AF 1.2 @ 60ml/hr x 24 hrs PO DIET RECOMMENDATIONS: CONTESTANT COORDINATOR EVAL POST EXTUBATION (if PO still indicated)-> CCHO MED, LOW NA ENTERAL NUTRITION RECOMMENDATIONS: Vital AF 1.2 @ 60ml/hr x 24 hrs to provide 1440ml, 1728kcal, 108g prot, 1167ml free water * WITH HEMODYNAMIC STABILITY: -> Initiate Vital AF 1.2 @ 10ml/hr x 6 hrs, advance 10ml q 4-6 hrs as tolerated to goal rate. -> HOB over 30 degrees/ H2O flush per MD WITHOUT HEMODYNAMIC STABILITY : rec trophic feeding of Vital AF 1.2 @ 10ml/hr x 24 hrs ADDITIONAL RECOMMENDATIONS: * Per SNF: HT=67" KO=773crl (As of Jun 10, 2019) * Monitor hemodynamic stability- not on pressor support at this time * Monitor K closely, need for TF change (K 5.9 upon adm, now wnl) * Add NISS: elev BGs, h/o DM, TF initiated * Wound healing: add Vit C 250mg QD Continue Dipak BID * Consider DC IVF once TF @ goal: BNP elevated
[2019-07-08] MEDS ORDERED: NS 275ml ONE (14:16)
--- NOTE | 2019-07-08 14:31 | NUR ---
NURSE NOTES: Pt repositioned and suctioned. No gastric residuals noted at this time. No acute distress. Will continue to monitor.
--- NOTE | 2019-07-08 16:00 | NUR ---
NURSE NOTES: Pt repositioned in bed, oral care provided, pt suctioned. No acute distress noted. No gastric residuals noted. Will continue to monitor.
--- NOTE | 2019-07-08 16:07 | NUR ---
Social Work This SW met with patient who is currently in the ICU, intubated, unresponsive. Patient has history of Parkinson's Disease, alert/oriented X1 and was living at [facility]. Patients spouse, Nimo ([phone]) is the POA/primary decision maker (this SW requesting for spouse to bring in patients Advance Directive; this SW left a message on spouse voicemail for this request). This SW spoke with daughter, Gina Trevizo @ [phone] who confirmed that spouse is the primary contact and will also request spouse to bring in the AD. Family confirmed that they would like patient to remain full code, full treatment. Daughter requesting information from the RAND CEMENTER regarding progress; pending weaning from the vent at this time (was not able to wean this morning, according to nursing). SW to follow further, as needed for further support.
--- NOTE | 2019-07-08 18:00 | NUR ---
NURSE NOTES: Pt in no acute distress, repositioned and suctioned. No gastric residuals noted. TF advanced to 20cc/hr at this time. Grand-daughter at bedside. Will continue to monitor.
--- NOTE | 2019-07-08 19:07 | NUR ---
RESPIRATORY NOTE: Received pt on AC 16, 650VT, 35%, no PEEP. Pt intubated w/ ETT 7.5 @ 23cm lipline, secured by anchorfast. Pt is asleep/flat effect, responds to stimuli. B/S hao. rhonchi, sxn small amounts of thick/thin, clear-white secretions. Vent plugged into red outlet, ambubag at bedside. Pt in no apparent distress at this time. Will continue to monitor pt.
--- NOTE | 2019-07-08 19:22 | Internal Med Progress Note ---
Subjective Date of Service: Jul 08, 2019 Physician Name Shukri Glover Attending Physician Rayshawn Woods MD Current Medications Medications (Trade) Dose Ordered Sig/Genoveva Route PRN Reason Start Time Stop Time Status Last Admin Dose Admin Acetaminophen (Tylenol) 650 mg Q6H PRN ORAL Mild Pain/Temp > 100.5 07/05/19 15:00 08/03/19 14:59 07/05/19 21:22 Albuterol/ Ipratropium (Albuterol/ Ipratropium) 3 ml Q4H PRN HHN Shortness of Breath 07/05/19 15:30 07/09/19 07:29 Barium Sulfate (Readi-Cat 2) 450 ml NOW PRN ORAL Radiology Procedure 07/07/19 11:30 07/09/19 11:18 Cefepime HCl 1 gm/ Dextrose 55 ml @ 110 mls/hr Q24H IVPB 07/05/19 21:00 07/11/19 20:59 07/07/19 21:49 Chlorhexidine Gluconate (Alondra-Hex 2%) 1 applic DAILY@2000 TOPIC 07/05/19 20:00 08/04/19 19:59 07/07/19 19:57 Hydralazine HCl (Apresoline) 10 mg Q4H PRN IV bp over 160 syst 07/06/19 12:30 08/05/19 12:29 Hydrocortisone (Solu-CORTEF) 100 mg EVERY 8 HOURS IV 07/05/19 14:30 08/04/19 14:29 07/08/19 13:00 Lorazepam (Ativan 2mg/ml 1ml) 2 mg Q4H PRN IV For Anxiety 07/05/19 15:15 07/12/19 11:14 Metronidazole 100 ml @ 100 mls/hr Q12HR IVPB 07/05/19 21:00 07/11/19 08:59 07/08/19 08:26 Morphine Sulfate (Morphine Sulfate) 4 mg Q4H PRN IVP For Severe Pain (6 to 10) 07/05/19 15:15 07/12/19 11:14 Nitroglycerin (Ntg) 1 patch Q24H TDERMAL 07/06/19 12:30 08/05/19 12:29 07/08/19 11:55 Norepinephrine Bitartrate 4 mg/ Dextrose 250 ml @ 0 mls/hr Q24H IV 07/06/19 15:30 08/04/19 15:29 Pantoprazole (Protonix) 40 mg Q12HR IV 07/05/19 21:00 08/04/19 11:14 07/08/19 08:27 Promethazine HCl/ Codeine (Phenergan with Codeine) 5 ml Q4H PRN ORAL For Cough 07/05/19 15:30 08/03/19 07:29 Vancomycin HCl (Vanco rx to dose) 1 ea DAILY PRN MISC Per rx protocol 07/06/19 09:00 08/03/19 08:59 Vancomycin HCl 750 mg/Sodium Chloride 275 ml @ 183.333 mls/hr Q24H IVPB 07/07/19 10:00 07/12/19 09:59 07/08/19 08:46 Allergies: Coded Allergies: PENICILLINS (Verified Allergy, Unknown, 07/04/19) ROS Limited/Unobtainable: Yes Subjective 83 YO M admitted with dyspnea, now respiratory failure. Cover for [facility] Chris-Dr Woods. ICU. Intubated and sedated Objective Last Vital Signs Date Time Temp Pulse Resp B/P (MAP) Pulse Ox O2 Delivery O2 Flow Rate FiO2 07/08/19 19:03 67 17 35 07/08/19 19:00 134/61 (85) 100 07/08/19 16:00 99.3 07/08/19 16:00 Mechanical Ventilator Mechanical Ventilator Mechanical Ventilator 07/05/19 09:00 12.0 Laboratory Tests Test 07/08/19 04:00 07/08/19 09:30 White Blood Count 9.0 K/UL (4.8-10.8) Red Blood Count 3.47 M/UL (4.70-6.10) L Hemoglobin 9.6 G/DL (14.2-18.0) L Hematocrit 29.2 % (42.0-52.0) L Mean Corpuscular Volume 84 FL (80-99) Mean Corpuscular Hemoglobin 27.6 PG (27.0-31.0) Mean Corpuscular Hemoglobin Concent 32.8 G/DL (32.0-36.0) Red Cell Distribution Width 13.6 % (11.6-14.8) Platelet Count 148 K/UL (150-450) L Mean Platelet Volume 7.2 FL (6.5-10.1) Neutrophils (%) (Auto) % (45.0-75.0) Lymphocytes (%) (Auto) % (20.0-45.0) Monocytes (%) (Auto) % (1.0-10.0) Eosinophils (%) (Auto) % (0.0-3.0) Basophils (%) (Auto) % (0.0-2.0) Differential Total Cells Counted 100 Neutrophils % (Manual) 86 % (45-75) H Lymphocytes % (Manual) 8 % (20-45) L Monocytes % (Manual) 6 % (1-10) Eosinophils % (Manual) 0 % (0-3) Basophils % (Manual) 0 % (0-2) Band Neutrophils 0 % (0-8) Platelet Estimate Decreased L Platelet Morphology Normal Hypochromasia 1+ Sodium Level 150 MMOL/L (136-145) H Potassium Level 3.6 MMOL/L (3.5-5.1) Chloride Level 118 MMOL/L (98-107) H Carbon Dioxide Level 23 MMOL/L (21-32) Anion Gap 9 mmol/L (5-15) Blood Urea Nitrogen 27 mg/dL (7-18) H Creatinine 1.3 MG/DL (0.55-1.30) Estimat Glomerular Filtration Rate mL/min (>60) Glucose Level 169 MG/DL (74-106) H Uric Acid 7.6 MG/DL (2.6-7.2) H Calcium Level 7.8 MG/DL (8.5-10.1) L Phosphorus Level 2.6 MG/DL (2.5-4.9) Magnesium Level 1.9 MG/DL (1.8-2.4) Total Bilirubin 0.4 MG/DL (0.2-1.0) Aspartate Amino Transf (AST/SGOT) 71 U/L (15-37) H Alanine Aminotransferase (ALT/SGPT) 301 U/L (12-78) H Alkaline Phosphatase 65 U/L (46-116) C-Reactive Protein, Quantitative 7.2 mg/dL (0.00-0.90) H Pro-B-Type Natriuretic Peptide 5037 pg/mL (0-125) H Total Protein 6.4 G/DL (6.4-8.2) Albumin 2.5 G/DL (3.4-5.0) L Globulin 3.9 g/dL Albumin/Globulin Ratio 0.6 (1.0-2.7) L Arterial Blood pH 7.415 (7.350-7.450) Arterial Blood Partial Pressure CO2 31.0 mmHg (35.0-45.0) L Arterial Blood Partial Pressure O2 139.1 mmHg (75.0-100.0) H Arterial Blood HCO3 19.4 mmol/L (22.0-26.0) L Arterial Blood Oxygen Saturation 98.2 % (95-100) Arterial Blood Base Excess -4.4 (-2-2) L Phan Test Positive Microbiology Date/Time Source Procedure Growth Status 07/06/19 11:40 Blood Blood Culture - Preliminary NO GROWTH AFTER 24 HOURS Resulted 07/06/19 11:30 Blood Blood Culture - Preliminary NO GROWTH AFTER 24 HOURS Resulted Intake and Output 07/07/19 07/08/19 19:00 07:00 Intake Total 1275.00 ml 955 ml Output Total 500 ml 570 ml Balance 775.00 ml 385 ml IV Total 1275.00 ml 955 ml Output Urine Total 500 ml 570 ml Objective PHYSICAL EXAMINATION: GENERAL: The patient is a well-developed and well-nourished male, in moderate respiratory distress. HEENT: Eyes, pupils are equal and responsive to light and accommodation. Extraocular movements are intact. NECK: Supple without lymphadenopathy. CHEST: Mech Vent; Coarse breath sounds bilaterally with expiratory wheezes. Otherwise, without crackles. ABDOMINAL: Soft, nontender, and nondistended. Positive bowel sounds. No evidence of hepatosplenomegaly. Currently, no rebound or guarding noted. CARDIOVASCULAR: Tachycardic. Regular rhythm. S1 and S2 are normal without murmurs, rubs, or gallops. GENITOURINARY: Deferred. NEUROLOGICAL: Cranial nerves II to XII are grossly intact without focal deficits. EXTREMITIES: Negative for clubbing, cyanosis, or edema. Assessment/Plan Assessment/Plan ASSESSMENT: This is an 83-year-old male. 1. Dyspnea. 2. Respiratory distress. 3. Diabetes type 2. 4. Parkinson disease. 5. Hypercholesterolemia. 6. Dilated cardiomyopathy. 7. Dysphagia. 8. Benign prostatic hypertrophy. TREATMENT: 1. Dyspnea/respiratory distress. A Pulmonary consultation has been obtained with Dr. Mirali Zarrabi. The patient is currently on mech vent. ABX=vanco, flagyl and cefepime intravenously. We will follow recommendations of Pulmonary. 2. Diabetes type 2. 3. Hypercholesterolemia. 4. Dilated cardiomyopathy. 5. Dysphagia. The patient is status post PEG placement. 6. Hypertensive heart disease. 7. Benign prostatic hypertrophy. 8. ID=Shukri Rodriguez MD Jul 08, 2019 19:22
--- NOTE | 2019-07-08 19:26 | NUR ---
HAND-OFF: Report given to VIRGIL Jennings. Pt in stable condition with no acute distress noted.
--- NOTE | 2019-07-08 20:00 | NUR ---
NURSE NOTES: received report from roselyn rn pt orally intubated - vent with o2 sat 100 o/o no acute resp distress iv infusing rt ij dressing dry and intact reposition and suction hr rate 52-59 s hillary with pvc skin warm and dry bp 122/65 tolerating tube feeding no residual
[2019-07-08] MEDS: Dyna-Hex 2% Top Sol 2oz TOPIC SCH (20:15)
[2019-07-08] MEDS: Cefepime HCl 1 GM in D5W 55 ML IVPB SCH (20:53)
--- NOTE | 2019-07-08 22:00 | NUR ---
NURSE NOTES: tolerating tube feeding at rate30 cc no residual
[2019-07-09] VITALS (24 sets, daily range): BP systolic 112–157; BP diastolic 47–85
--- NOTE | 2019-07-09 | NUR ---
NURSE NOTES: tube feeding residual 30cc no>tube feeding
--- NOTE | 2019-07-09 02:00 | NUR ---
NURSE NOTES: tube feeding residual 10 cc rate 30cc/hr
--- NOTE | 2019-07-09 04:00 | NUR ---
NURSE NOTES: complete bed bath done and back care reposition and suction
[2019-07-09] MEDS: Hydrocortisone 100mg Inj IV SCH ×3 (05:29→22:00)
--- NOTE | 2019-07-09 06:00 | NUR ---
NURSE NOTES: not tolerating tube with residual 40cc rate change to30cc/hr
--- NOTE | 2019-07-09 07:10 | NUR ---
HAND-OFF: Report given to palomo rn using sbar.
[2019-07-09 07:11] LABS: ALANINE AMINOTRANSFERASE 218 U/L (12-78); ALBUMIN 2.1 G/DL (3.4-5.0); ALBUMIN/GLOBULIN RATIO 0.6 (1.0-2.7); ALKALINE PHOSPHATASE 56 U/L (46-116); ANION GAP 6 mmol/L (5-15); ASPARTATE AMINO TRANSFERASE 70 U/L (15-37); BILIRUBIN,TOTAL 0.4 MG/DL (0.2-1.0); BLOOD UREA NITROGEN 28 mg/dL (7-18); CALCIUM 7.9 MG/DL (8.5-10.1); CARBON DIOXIDE 25 MMOL/L (21-32); CHLORIDE 119 MMOL/L (98-107); CREATININE 1.1 MG/DL (0.55-1.30); PHOSPHORUS 2.3 MG/DL (2.5-4.9); POTASSIUM 3.1 MMOL/L (3.5-5.1); SODIUM 150 MMOL/L (136-145)
[2019-07-09 07:13] LABS: BASOPHILS % (AUTO) 0.4 % (0.0-2.0); HEMATOCRIT 25.6 % (42.0-52.0); HEMOGLOBIN 8.6 G/DL (14.2-18.0); LYMPHOCYTES % (AUTO) 7.5 % (20.0-45.0); MEAN CORPUSCULAR VOLUME 82 FL (80-99); MONOCYTES % (AUTO) 8.5 % (1.0-10.0); NEUTROPHILS % (AUTO) 83.6 % (45.0-75.0); PLATELET COUNT 137 K/UL (150-450); RED CELL DISTRIBUTION WIDTH 13.7 % (11.6-14.8); WHITE BLOOD COUNT 8.4 K/UL (4.8-10.8)
--- NOTE | 2019-07-09 07:15 | NUR ---
NURSE NOTES: Received Patient from Keysha HERMAN. Patient is asleep, opens eyes on command. Sinus Rhythm on the heart monitor, HR 64. Receiving oxygen via ET tube 7.5 24cm at the lip line right side, vent settings: AC 16, TV 650, FiO2 40%. Patient has Right IJ TLC patent and asymptomatic. G-tube is intact and receiving Vital AF at 30cc/hr, no residuals. Juan catheter is intact and draining. Bed is locked, placed in lowest position, side rails up x3, bed alarm on, head of bed elevated. Will continue to monitor.
[2019-07-09] MEDS: Pantoprazole Inj IV SCH ×2 (08:00→20:43)
--- NOTE | 2019-07-09 08:00 | NUR ---
NURSE NOTES: Turned and repositioned patient, oral care done, patient denies any pain, no signs of distress noted. Will continue to monitor.
--- NOTE | 2019-07-09 08:04 | Urology Progress Note ---
Assessment/Plan Assessment/Plan: 1. Left-sided hydronephrosis. 2. Proteinuria. 3. Hematuria. 4. Pyuria. 5. Urinary retention. 6. BPH history. 7. Rule out neurogenic bladder. 8. Mild acute kidney injury, improved. monitor clinically maintain nixon hand irrigate PRN abx as ordered f/u on blood cx CT A/P ordered, to be done once more medically stabilized monitor renal fxn Subjective Allergies: Coded Allergies: PENICILLINS (Verified Allergy, Unknown, 07/04/19) Subjective all noted, remains on vent Objective Last 24 Hour Vital Signs Date Time Temp Pulse Resp B/P (MAP) Pulse Ox O2 Delivery O2 Flow Rate FiO2 07/09/19 07:22 55 16 35 07/09/19 07:00 69 20 155/53 (87) 100 07/09/19 06:30 55 22 07/09/19 06:00 52 29 149/51 (83) 100 07/09/19 05:19 55 16 35 07/09/19 05:00 67 28 112/49 (70) 92 07/09/19 04:00 59 07/09/19 04:00 Mechanical Ventilator Mechanical Ventilator Mechanical Ventilator 07/09/19 04:00 98.8 60 26 132/68 (89) 100 07/09/19 04:00 40 07/09/19 03:00 64 28 157/54 (88) 100 07/09/19 02:54 65 16 35 07/09/19 02:00 60 30 144/54 (84) 100 07/09/19 01:00 66 29 150/57 (88) 100 07/09/19 00:48 60 16 35 07/09/19 00:00 98.4 57 25 150/56 (87) 100 07/09/19 00:00 Mechanical Ventilator Mechanical Ventilator Mechanical Ventilator 07/09/19 00:00 59 07/09/19 00:00 40 07/08/19 23:03 62 16 35 07/08/19 23:00 53 27 121/46 (71) 94 07/08/19 22:00 56 24 134/51 (78) 100 07/08/19 21:08 54 16 35 07/08/19 21:00 52 21 150/62 (91) 100 07/08/19 20:00 Mechanical Ventilator Mechanical Ventilator Mechanical Ventilator 07/08/19 20:00 40 07/08/19 20:00 98.8 53 26 145/54 (84) 100 07/08/19 20:00 59 07/08/19 19:03 67 17 35 07/08/19 19:00 62 30 134/61 (85) 100 07/08/19 18:00 58 30 142/49 (80) 100 07/08/19 17:27 67 17 35 07/08/19 17:00 78 35 164/54 (90) 100 07/08/19 16:00 99.3 57 31 148/56 (86) 100 07/08/19 16:00 52 07/08/19 16:00 Mechanical Ventilator Mechanical Ventilator Mechanical Ventilator 07/08/19 15:30 151/55 07/08/19 15:13 58 16 35 07/08/19 15:00 70 27 151/55 (87) 100 07/08/19 14:00 65 50 149/54 (85) 100 07/08/19 13:31 100 07/08/19 13:29 61 16 40 07/08/19 13:00 57 33 124/48 (73) 100 07/08/19 12:10 40 07/08/19 12:00 69 07/08/19 12:00 99.0 69 29 133/58 (83) 99 07/08/19 12:00 Mechanical Ventilator Mechanical Ventilator Mechanical Ventilator 07/08/19 11:55 151/67 07/08/19 11:29 71 15 35 35 07/08/19 11:00 65 26 138/60 (86) 100 07/08/19 10:00 77 24 143/58 (86) 100 07/08/19 09:10 40 07/08/19 09:10 71 15 40 40 07/08/19 09:00 68 23 158/62 (94) 100 Intake and Output 07/08/19 07/09/19 19:00 07:00 Intake Total 1406.666 ml 595 ml Output Total 1180 ml 695 ml Balance 226.666 ml -100 ml Free Water 100 ml 60 ml IV Total 1216.666 ml 155 ml Tube Feeding 90 ml 380 ml Output Urine Total 1180 ml 695 ml Microbiology Date/Time Source Procedure Growth Status 07/06/19 11:40 Blood Blood Culture - Preliminary NO GROWTH AFTER 48 HOURS Resulted 07/04/19 10:15 Sputum Gram Stain - Final Complete 07/04/19 10:15 Sputum Culture - Final Nicolle Albicans Usual Respiratory Valery Complete 07/04/19 01:25 Urine,Clean Catch Urine Culture - Final NO GROWTH AFTER 48 HOURS Complete 07/04/19 00:43 Rectum - Final NO CARBAPENEM-RESISTANT ENTEROBACTERI... Complete Current Medications Medications (Trade) Dose Ordered Sig/Genoveva Route PRN Reason Start Time Stop Time Status Last Admin Dose Admin Acetaminophen (Tylenol) 650 mg Q6H PRN ORAL Mild Pain/Temp > 100.5 07/05/19 15:00 08/03/19 14:59 07/05/19 21:22 Barium Sulfate (Readi-Cat 2) 450 ml NOW PRN ORAL Radiology Procedure 07/07/19 11:30 07/09/19 11:18 Cefepime HCl 1 gm/ Dextrose 55 ml @ 110 mls/hr Q24H IVPB 07/05/19 21:00 07/11/19 20:59 07/08/19 20:53 Chlorhexidine Gluconate (Alondra-Hex 2%) 1 applic DAILY@2000 TOPIC 07/05/19 20:00 08/04/19 19:59 07/08/19 20:15 Hydralazine HCl (Apresoline) 10 mg Q4H PRN IV bp over 160 syst 07/06/19 12:30 08/05/19 12:29 Hydrocortisone (Solu-CORTEF) 100 mg EVERY 8 HOURS IV 07/05/19 14:30 08/04/19 14:29 07/09/19 05:29 Lorazepam (Ativan 2mg/ml 1ml) 2 mg Q4H PRN IV For Anxiety 07/05/19 15:15 07/12/19 11:14 Metronidazole 100 ml @ 100 mls/hr Q12HR IVPB 07/05/19 21:00 07/11/19 08:59 07/09/19 08:00 Morphine Sulfate (Morphine Sulfate) 4 mg Q4H PRN IVP For Severe Pain (6 to 10) 07/05/19 15:15 07/12/19 11:14 Nitroglycerin (Ntg) 1 patch Q24H TDERMAL 07/06/19 12:30 08/05/19 12:29 07/08/19 11:55 Norepinephrine Bitartrate 4 mg/ Dextrose 250 ml @ 0 mls/hr Q24H IV 07/06/19 15:30 08/04/19 15:29 Pantoprazole (Protonix) 40 mg Q12HR IV 07/05/19 21:00 08/04/19 11:14 07/09/19 08:00 Promethazine HCl/ Codeine (Phenergan with Codeine) 5 ml Q4H PRN ORAL For Cough 07/05/19 15:30 08/03/19 07:29 Vancomycin HCl (Vanco rx to dose) 1 ea DAILY PRN MISC Per rx protocol 07/06/19 09:00 08/03/19 08:59 Vancomycin HCl 750 mg/Sodium Chloride 275 ml @ 183.333 mls/hr Q24H IVPB 07/07/19 10:00 07/12/19 09:59 07/08/19 08:46 Laboratory Tests 07/08/19 09:30: Arterial Blood pH 7.415, Arterial Blood Partial Pressure CO2 31.0L, Arterial Blood Partial Pressure O2 139.1H, Arterial Blood HCO3 19.4L, Arterial Blood Oxygen Saturation 98.2, Arterial Blood Base Excess -4.4L, Phan Test Positive 07/09/19 05:13: White Blood Count 8.4, Red Blood Count 3.10L, Hemoglobin 8.6L, Hematocrit 25.6L , Mean Corpuscular Volume 82, Mean Corpuscular Hemoglobin 27.7, Mean Corpuscular Hemoglobin Concent 33.5, Red Cell Distribution Width 13.7, Platelet Count 137L, Mean Platelet Volume 6.8, Neutrophils (%) (Auto) 83.6H, Lymphocytes (%) (Auto) 7.5L, Monocytes (%) (Auto) 8.5, Eosinophils (%) (Auto) 0.0, Basophils (%) (Auto) 0.4, Sodium Level 150H, Potassium Level 3.1L, Chloride Level 119H, Carbon Dioxide Level 25, Anion Gap 6, Blood Urea Nitrogen 28H, Creatinine 1.1, Estimat Glomerular Filtration Rate , Glucose Level 183H, Calcium Level 7.9L, Phosphorus Level 2.3L, Magnesium Level 1.7L, Total Bilirubin 0.4, Aspartate Amino Transf (AST/SGOT) 70H, Alanine Aminotransferase ( ALT/SGPT) 218H, Alkaline Phosphatase 56, Total Protein 5.7L, Albumin 2.1L, Globulin 3.6, Albumin/Globulin Ratio 0.6L Height (Feet): 5 Height (Inches): 8.00 Weight (Pounds): 169 Objective exam stable nixon indwelling urine yellow/kristen, occasional debris Clayton Callejas MD Jul 09, 2019 08:04
[2019-07-09] MEDS ORDERED: Sodium Chloride for KCL Premix x 2hrs IV SCH (08:15)
--- NOTE | 2019-07-09 08:18 | Infectious Diseases Prog Note ---
Assessment/Plan Assessment/Plan Assessment: Shock, SP s/p cardiac arrest 07/05 Sepsis Probable UTI Acute hypoxic respiratory failure, intubated 07/05 Aspiration pneumonia vs pneumonitis Gram positive bacteremia- contaminant -07/06 Bcx NTD -07/05 CXR:Mild CHF -u/a wbc 5-10, nit neg, leuk +2; ucx Neg -Bcx 06/08 dipteriods -sp cx usual resp rupert -CXR: No acute process -influenza sc neg -v. duplex: no DVT -V/q scan:Findings are deemed low probability for pulmonary embolus Fever; SP No leukocytosis CARA; improving Dm2 dysphagia s/p GT hx of PNA parkinson disease HTN bed bound NH resident Plan: -D/c empiric IV Vancomycin #5 -Continue empiric Cefepime #6 and Flagyl #5 -07/04 SP Levaquin x1 -f/u cx -Monitor CBC/CMP, temperatures -aspiration precautions -ICU/ETT/GT care -Cards, nephro f/u -f/u repeat Bcx x2 Thank you for this consultation. Will continue to follow along with you. Discussed with RN. Subjective Allergies: Coded Allergies: PENICILLINS (Verified Allergy, Unknown, 07/04/19) Subjective afebrile >72hrs remains in ICU intubated repeat Bcx NTD no pressors Objective Vital Signs Last 24 Hour Vital Signs Date Time Temp Pulse Resp B/P (MAP) Pulse Ox O2 Delivery O2 Flow Rate FiO2 07/09/19 07:22 55 16 35 07/09/19 07:00 69 20 155/53 (87) 100 07/09/19 06:30 55 22 07/09/19 06:00 52 29 149/51 (83) 100 07/09/19 05:19 55 16 35 07/09/19 05:00 67 28 112/49 (70) 92 07/09/19 04:00 59 07/09/19 04:00 Mechanical Ventilator Mechanical Ventilator Mechanical Ventilator 07/09/19 04:00 98.8 60 26 132/68 (89) 100 07/09/19 04:00 40 07/09/19 03:00 64 28 157/54 (88) 100 07/09/19 02:54 65 16 35 07/09/19 02:00 60 30 144/54 (84) 100 07/09/19 01:00 66 29 150/57 (88) 100 07/09/19 00:48 60 16 35 07/09/19 00:00 98.4 57 25 150/56 (87) 100 07/09/19 00:00 Mechanical Ventilator Mechanical Ventilator Mechanical Ventilator 07/09/19 00:00 59 07/09/19 00:00 40 07/08/19 23:03 62 16 35 07/08/19 23:00 53 27 121/46 (71) 94 07/08/19 22:00 56 24 134/51 (78) 100 07/08/19 21:08 54 16 35 07/08/19 21:00 52 21 150/62 (91) 100 07/08/19 20:00 Mechanical Ventilator Mechanical Ventilator Mechanical Ventilator 07/08/19 20:00 40 07/08/19 20:00 98.8 53 26 145/54 (84) 100 07/08/19 20:00 59 07/08/19 19:03 67 17 35 07/08/19 19:00 62 30 134/61 (85) 100 07/08/19 18:00 58 30 142/49 (80) 100 07/08/19 17:27 67 17 35 07/08/19 17:00 78 35 164/54 (90) 100 07/08/19 16:00 99.3 57 31 148/56 (86) 100 07/08/19 16:00 52 07/08/19 16:00 Mechanical Ventilator Mechanical Ventilator Mechanical Ventilator 07/08/19 15:30 151/55 07/08/19 15:13 58 16 35 07/08/19 15:00 70 27 151/55 (87) 100 07/08/19 14:00 65 50 149/54 (85) 100 07/08/19 13:31 100 07/08/19 13:29 61 16 40 07/08/19 13:00 57 33 124/48 (73) 100 07/08/19 12:10 40 07/08/19 12:00 69 07/08/19 12:00 99.0 69 29 133/58 (83) 99 07/08/19 12:00 Mechanical Ventilator Mechanical Ventilator Mechanical Ventilator 07/08/19 11:55 151/67 07/08/19 11:29 71 15 35 35 07/08/19 11:00 65 26 138/60 (86) 100 07/08/19 10:00 77 24 143/58 (86) 100 07/08/19 09:10 40 07/08/19 09:10 71 15 40 40 07/08/19 09:00 68 23 158/62 (94) 100 Height (Feet): 5 Height (Inches): 8.00 Weight (Pounds): 169 Objective General Appearance: cachetic, thin Lines, tubes and drains: peripheral HEENT: normocephalic, atraumatic Neck: non-tender, normal alignment Respiratory/Chest: chest wall non-tender, lungs clear Breasts: no masses Cardiovascular/Chest: normal peripheral pulses, normal rate Abdomen: normal bowel sounds, non tender, hyperactive bowel sounds Genitourinary/Rectal: normal genital exam Extremities: normal range of motion Skin Exam: normal pigmentation Microbiology Date/Time Source Procedure Growth Status 07/06/19 11:40 Blood Blood Culture - Preliminary NO GROWTH AFTER 48 HOURS Resulted 07/06/19 11:30 Blood Blood Culture - Preliminary NO GROWTH AFTER 48 HOURS Resulted Laboratory Tests Test 07/08/19 09:30 07/09/19 05:13 Arterial Blood pH 7.415 (7.350-7.450) Arterial Blood Partial Pressure CO2 31.0 mmHg (35.0-45.0) L Arterial Blood Partial Pressure O2 139.1 mmHg (75.0-100.0) H Arterial Blood HCO3 19.4 mmol/L (22.0-26.0) L Arterial Blood Oxygen Saturation 98.2 % (95-100) Arterial Blood Base Excess -4.4 (-2-2) L Phan Test Positive White Blood Count 8.4 K/UL (4.8-10.8) Red Blood Count 3.10 M/UL (4.70-6.10) L Hemoglobin 8.6 G/DL (14.2-18.0) L Hematocrit 25.6 % (42.0-52.0) L Mean Corpuscular Volume 82 FL (80-99) Mean Corpuscular Hemoglobin 27.7 PG (27.0-31.0) Mean Corpuscular Hemoglobin Concent 33.5 G/DL (32.0-36.0) Red Cell Distribution Width 13.7 % (11.6-14.8) Platelet Count 137 K/UL (150-450) L Mean Platelet Volume 6.8 FL (6.5-10.1) Neutrophils (%) (Auto) 83.6 % (45.0-75.0) H Lymphocytes (%) (Auto) 7.5 % (20.0-45.0) L Monocytes (%) (Auto) 8.5 % (1.0-10.0) Eosinophils (%) (Auto) 0.0 % (0.0-3.0) Basophils (%) (Auto) 0.4 % (0.0-2.0) Sodium Level 150 MMOL/L (136-145) H Potassium Level 3.1 MMOL/L (3.5-5.1) L Chloride Level 119 MMOL/L (98-107) H Carbon Dioxide Level 25 MMOL/L (21-32) Anion Gap 6 mmol/L (5-15) Blood Urea Nitrogen 28 mg/dL (7-18) H Creatinine 1.1 MG/DL (0.55-1.30) Estimat Glomerular Filtration Rate mL/min (>60) Glucose Level 183 MG/DL (74-106) H Calcium Level 7.9 MG/DL (8.5-10.1) L Phosphorus Level 2.3 MG/DL (2.5-4.9) L Magnesium Level 1.7 MG/DL (1.8-2.4) L Total Bilirubin 0.4 MG/DL (0.2-1.0) Aspartate Amino Transf (AST/SGOT) 70 U/L (15-37) H Alanine Aminotransferase (ALT/SGPT) 218 U/L (12-78) H Alkaline Phosphatase 56 U/L (46-116) Total Protein 5.7 G/DL (6.4-8.2) L Albumin 2.1 G/DL (3.4-5.0) L Globulin 3.6 g/dL Albumin/Globulin Ratio 0.6 (1.0-2.7) L Current Medications Medications (Trade) Dose Ordered Sig/Genoveva Route PRN Reason Start Time Stop Time Status Last Admin Dose Admin Acetaminophen (Tylenol) 650 mg Q6H PRN ORAL Mild Pain/Temp > 100.5 07/05/19 15:00 08/03/19 14:59 07/05/19 21:22 Barium Sulfate (Readi-Cat 2) 450 ml NOW PRN ORAL Radiology Procedure 07/07/19 11:30 07/09/19 11:18 Cefepime HCl 1 gm/ Dextrose 55 ml @ 110 mls/hr Q24H IVPB 07/05/19 21:00 07/11/19 20:59 07/08/19 20:53 Chlorhexidine Gluconate (Alondra-Hex 2%) 1 applic DAILY@2000 TOPIC 07/05/19 20:00 08/04/19 19:59 07/08/19 20:15 Hydralazine HCl (Apresoline) 10 mg Q4H PRN IV bp over 160 syst 07/06/19 12:30 08/05/19 12:29 Hydrocortisone (Solu-CORTEF) 100 mg EVERY 8 HOURS IV 07/05/19 14:30 08/04/19 14:29 07/09/19 05:29 Lorazepam (Ativan 2mg/ml 1ml) 2 mg Q4H PRN IV For Anxiety 07/05/19 15:15 07/12/19 11:14 Metronidazole 100 ml @ 100 mls/hr Q12HR IVPB 07/05/19 21:00 07/11/19 08:59 07/09/19 08:00 Morphine Sulfate (Morphine Sulfate) 4 mg Q4H PRN IVP For Severe Pain (6 to 10) 07/05/19 15:15 07/12/19 11:14 Nitroglycerin (Ntg) 1 patch Q24H TDERMAL 07/06/19 12:30 08/05/19 12:29 07/08/19 11:55 Norepinephrine Bitartrate 4 mg/ Dextrose 250 ml @ 0 mls/hr Q24H IV 07/06/19 15:30 08/04/19 15:29 Pantoprazole (Protonix) 40 mg Q12HR IV 07/05/19 21:00 08/04/19 11:14 07/09/19 08:00 Potassium Chloride 100 ml @ 100 mls/hr Q1HR IVPB 07/09/19 09:00 07/09/19 10:59 Promethazine HCl/ Codeine (Phenergan with Codeine) 5 ml Q4H PRN ORAL For Cough 07/05/19 15:30 08/03/19 07:29 Vancomycin HCl (Vanco rx to dose) 1 ea DAILY PRN MISC Per rx protocol 07/06/19 09:00 08/03/19 08:59 Vancomycin HCl 750 mg/Sodium Chloride 275 ml @ 183.333 mls/hr Q24H IVPB 07/07/19 10:00 07/12/19 09:59 07/08/19 08:46 Mirian Page M.D. Jul 09, 2019 08:18
--- NOTE | 2019-07-09 09:36 | NUR ---
NURSE NOTES: Current G-tube feeding of Vital AF at 30cc/hr, 45cc of residual noted. Will continue to monitor.
--- NOTE | 2019-07-09 09:42 | NUR ---
NURSE NOTES: Patient seen and assessed by Dr. Lopez.
--- NOTE | 2019-07-09 09:49 | Pulmonolgy Critical Care Note ---
Critical Care - Asmt/Plan Problems: (1) Cardiac arrest with successful resuscitation (2) Respiratory failure with hypoxia (3) Hypotension (4) Parkinson disease (5) Feeding by G-tube (6) Diabetes mellitus (7) Hydronephrosis Respiratory: monitor respiratory rate, adjust FIO2, CXR Cardiac: continue to monitor HR/BP Renal: F/U I&O, keep IV fluid, check electrolytes Infectious Disease: check cultures, continue antibiotics Gastrointestinal: continue feedings/current rate Endocrine: monitor blood sugar Neurologic: PRN Ativan, PRN Morphine Affect: PRN ativan Disposition: keep in ICU Time Spent (Minutes): 40 Notes Reviewed: cardio Discussed with: nurses, consultants, correctional casework specialistmanager room - Objective Last 24 Hour Vital Signs Date Time Temp Pulse Resp B/P (MAP) Pulse Ox O2 Delivery O2 Flow Rate FiO2 07/09/19 09:00 70 24 139/47 (77) 100 07/09/19 08:45 65 14 35 35 07/09/19 08:44 62 18 100 Mechanical Ventilator 35 07/09/19 08:42 64 16 35 07/09/19 08:00 40 07/09/19 08:00 Mechanical Ventilator Mechanical Ventilator Mechanical Ventilator 07/09/19 08:00 98.9 66 22 151/74 (99) 100 07/09/19 07:39 72 07/09/19 07:22 55 16 35 07/09/19 07:00 69 20 155/53 (87) 100 07/09/19 06:30 55 22 07/09/19 06:00 52 29 149/51 (83) 100 07/09/19 05:19 55 16 35 07/09/19 05:00 67 28 112/49 (70) 92 07/09/19 04:00 59 07/09/19 04:00 Mechanical Ventilator Mechanical Ventilator Mechanical Ventilator 07/09/19 04:00 98.8 60 26 132/68 (89) 100 07/09/19 04:00 40 07/09/19 03:00 64 28 157/54 (88) 100 07/09/19 02:54 65 16 35 07/09/19 02:00 60 30 144/54 (84) 100 07/09/19 01:00 66 29 150/57 (88) 100 07/09/19 00:48 60 16 35 07/09/19 00:00 98.4 57 25 150/56 (87) 100 07/09/19 00:00 Mechanical Ventilator Mechanical Ventilator Mechanical Ventilator 07/09/19 00:00 59 07/09/19 00:00 40 07/08/19 23:03 62 16 35 07/08/19 23:00 53 27 121/46 (71) 94 07/08/19 22:00 56 24 134/51 (78) 100 07/08/19 21:08 54 16 35 07/08/19 21:00 52 21 150/62 (91) 100 07/08/19 20:00 Mechanical Ventilator Mechanical Ventilator Mechanical Ventilator 07/08/19 20:00 40 07/08/19 20:00 98.8 53 26 145/54 (84) 100 07/08/19 20:00 59 07/08/19 19:03 67 17 35 07/08/19 19:00 62 30 134/61 (85) 100 07/08/19 18:00 58 30 142/49 (80) 100 07/08/19 17:27 67 17 35 07/08/19 17:00 78 35 164/54 (90) 100 07/08/19 16:00 99.3 57 31 148/56 (86) 100 07/08/19 16:00 52 07/08/19 16:00 Mechanical Ventilator Mechanical Ventilator Mechanical Ventilator 07/08/19 15:30 151/55 07/08/19 15:13 58 16 35 07/08/19 15:00 70 27 151/55 (87) 100 07/08/19 14:00 65 50 149/54 (85) 100 07/08/19 13:31 100 07/08/19 13:29 61 16 40 07/08/19 13:00 57 33 124/48 (73) 100 07/08/19 12:10 40 07/08/19 12:00 69 07/08/19 12:00 99.0 69 29 133/58 (83) 99 07/08/19 12:00 Mechanical Ventilator Mechanical Ventilator Mechanical Ventilator 07/08/19 11:55 151/67 07/08/19 11:29 71 15 35 35 07/08/19 11:00 65 26 138/60 (86) 100 07/08/19 10:00 77 24 143/58 (86) 100 Status: awake Condition: critical HEENT: atraumatic, normocephalic Neck: full ROM Lungs: rales, rhonchi Heart: HR/BP stable Abdomen: soft Extremities: no C/C/E Micro: Microbiology Date/Time Source Procedure Growth Status 07/06/19 11:40 Blood Blood Culture - Preliminary NO GROWTH AFTER 48 HOURS Resulted 07/06/19 11:30 Blood Blood Culture - Preliminary NO GROWTH AFTER 48 HOURS Resulted Critical Care - Subjective ROS Limited/Unobtainable: Yes ICU Day: 4 Intubation Day: 4 Condition: critical EKG Rhythm: Sinus Rhythm FI02: 35 Vent Support Breath Rate: 16 Vent Support Mode: CPAP Vent Tidal Volume: 650 Sputum Amount: Small PEEP: 0.0 PIP: 8 Tube Feeding Amount: 30 I&O: Intake and Output 07/08/19 07/09/19 19:00 07:00 Intake Total 1406.666 ml 595 ml Output Total 1180 ml 695 ml Balance 226.666 ml -100 ml Free Water 100 ml 60 ml IV Total 1216.666 ml 155 ml Tube Feeding 90 ml 380 ml Output Urine Total 1180 ml 695 ml CXR: ET in good position, LLL infiltrate ET-Tube: 7.5 ET Position: 24 Labs: Laboratory Tests Test 07/09/19 05:13 White Blood Count 8.4 K/UL (4.8-10.8) Red Blood Count 3.10 M/UL (4.70-6.10) L Hemoglobin 8.6 G/DL (14.2-18.0) L Hematocrit 25.6 % (42.0-52.0) L Mean Corpuscular Volume 82 FL (80-99) Mean Corpuscular Hemoglobin 27.7 PG (27.0-31.0) Mean Corpuscular Hemoglobin Concent 33.5 G/DL (32.0-36.0) Red Cell Distribution Width 13.7 % (11.6-14.8) Platelet Count 137 K/UL (150-450) L Mean Platelet Volume 6.8 FL (6.5-10.1) Neutrophils (%) (Auto) 83.6 % (45.0-75.0) H Lymphocytes (%) (Auto) 7.5 % (20.0-45.0) L Monocytes (%) (Auto) 8.5 % (1.0-10.0) Eosinophils (%) (Auto) 0.0 % (0.0-3.0) Basophils (%) (Auto) 0.4 % (0.0-2.0) Sodium Level 150 MMOL/L (136-145) H Potassium Level 3.1 MMOL/L (3.5-5.1) L Chloride Level 119 MMOL/L (98-107) H Carbon Dioxide Level 25 MMOL/L (21-32) Anion Gap 6 mmol/L (5-15) Blood Urea Nitrogen 28 mg/dL (7-18) H Creatinine 1.1 MG/DL (0.55-1.30) Estimat Glomerular Filtration Rate mL/min (>60) Glucose Level 183 MG/DL (74-106) H Calcium Level 7.9 MG/DL (8.5-10.1) L Phosphorus Level 2.3 MG/DL (2.5-4.9) L Magnesium Level 1.7 MG/DL (1.8-2.4) L Total Bilirubin 0.4 MG/DL (0.2-1.0) Aspartate Amino Transf (AST/SGOT) 70 U/L (15-37) H Alanine Aminotransferase (ALT/SGPT) 218 U/L (12-78) H Alkaline Phosphatase 56 U/L (46-116) Total Protein 5.7 G/DL (6.4-8.2) L Albumin 2.1 G/DL (3.4-5.0) L Globulin 3.6 g/dL Albumin/Globulin Ratio 0.6 (1.0-2.7) L Kathryn Lopez MD Jul 09, 2019 09:49
--- NOTE | 2019-07-09 09:52 | NUR ---
RADIOLOGY DEPT., CHEST X-RAY DONE.-P.DYE
--- NOTE | 2019-07-09 09:59 | NUR ---
NURSE NOTES: Tube feeding residual <5cc, increased feeding rate to 40cc/hr. Will continue to monitor.
--- NOTE | 2019-07-09 10:09 | Cardiac Electrophysiology PN ---
Assessment/Plan Assessment/Plan 1. Status post bradycardic arrest with heart rate in the 20s. Off any sinus node or AV destinee blocking agents. 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 The first two troponins on admission were negative. 5 follow up troponins were mildly elevated likely due to Code. No further critical hillary episode 2. NSTEMI. Due to arrest 3. Respiratory failure, currently intubated on the ventilator and broad- spectrum IV antibiotic Weaning in progress. D. Dimer positive. VQ scan pre code was low probability 3. Hypotension. Improved with IV fluid 5. Dehydration, hyperatremia. Na still 150 6. Dysphagia, status post PEG placement. 7. Diabetes. 8. Benign prostatic hypertrophy. DW RN Subjective Subjective Intubated on the Vent. RN at bedside. No major bradycardia. Off pressors. Fio2 35% Objective Last 24 Hour Vital Signs Date Time Temp Pulse Resp B/P (MAP) Pulse Ox O2 Delivery O2 Flow Rate FiO2 07/09/19 10:00 77 29 146/72 (96) 100 07/09/19 09:00 70 24 139/47 (77) 100 07/09/19 08:45 65 14 35 35 07/09/19 08:44 62 18 100 Mechanical Ventilator 35 07/09/19 08:42 64 16 35 07/09/19 08:00 40 07/09/19 08:00 Mechanical Ventilator Mechanical Ventilator Mechanical Ventilator 07/09/19 08:00 98.9 66 22 151/74 (99) 100 07/09/19 07:39 72 07/09/19 07:22 55 16 35 07/09/19 07:00 69 20 155/53 (87) 100 07/09/19 06:30 55 22 07/09/19 06:00 52 29 149/51 (83) 100 07/09/19 05:19 55 16 35 07/09/19 05:00 67 28 112/49 (70) 92 07/09/19 04:00 59 07/09/19 04:00 Mechanical Ventilator Mechanical Ventilator Mechanical Ventilator 07/09/19 04:00 98.8 60 26 132/68 (89) 100 07/09/19 04:00 40 07/09/19 03:00 64 28 157/54 (88) 100 07/09/19 02:54 65 16 35 07/09/19 02:00 60 30 144/54 (84) 100 07/09/19 01:00 66 29 150/57 (88) 100 07/09/19 00:48 60 16 35 07/09/19 00:00 98.4 57 25 150/56 (87) 100 07/09/19 00:00 Mechanical Ventilator Mechanical Ventilator Mechanical Ventilator 07/09/19 00:00 59 07/09/19 00:00 40 07/08/19 23:03 62 16 35 07/08/19 23:00 53 27 121/46 (71) 94 07/08/19 22:00 56 24 134/51 (78) 100 07/08/19 21:08 54 16 35 07/08/19 21:00 52 21 150/62 (91) 100 07/08/19 20:00 Mechanical Ventilator Mechanical Ventilator Mechanical Ventilator 07/08/19 20:00 40 07/08/19 20:00 98.8 53 26 145/54 (84) 100 07/08/19 20:00 59 07/08/19 19:03 67 17 35 07/08/19 19:00 62 30 134/61 (85) 100 07/08/19 18:00 58 30 142/49 (80) 100 07/08/19 17:27 67 17 35 07/08/19 17:00 78 35 164/54 (90) 100 07/08/19 16:00 99.3 57 31 148/56 (86) 100 07/08/19 16:00 52 07/08/19 16:00 Mechanical Ventilator Mechanical Ventilator Mechanical Ventilator 07/08/19 15:30 151/55 07/08/19 15:13 58 16 35 07/08/19 15:00 70 27 151/55 (87) 100 07/08/19 14:00 65 50 149/54 (85) 100 07/08/19 13:31 100 07/08/19 13:29 61 16 40 07/08/19 13:00 57 33 124/48 (73) 100 07/08/19 12:10 40 07/08/19 12:00 69 07/08/19 12:00 99.0 69 29 133/58 (83) 99 07/08/19 12:00 Mechanical Ventilator Mechanical Ventilator Mechanical Ventilator 07/08/19 11:55 151/67 07/08/19 11:29 71 15 35 35 07/08/19 11:00 65 26 138/60 (86) 100 Intake and Output 07/08/19 07/09/19 19:00 07:00 Intake Total 1406.666 ml 595 ml Output Total 1180 ml 695 ml Balance 226.666 ml -100 ml Free Water 100 ml 60 ml IV Total 1216.666 ml 155 ml Tube Feeding 90 ml 380 ml Output Urine Total 1180 ml 695 ml Laboratory Tests Test 07/09/19 05:13 White Blood Count 8.4 K/UL (4.8-10.8) Red Blood Count 3.10 M/UL (4.70-6.10) L Hemoglobin 8.6 G/DL (14.2-18.0) L Hematocrit 25.6 % (42.0-52.0) L Mean Corpuscular Volume 82 FL (80-99) Mean Corpuscular Hemoglobin 27.7 PG (27.0-31.0) Mean Corpuscular Hemoglobin Concent 33.5 G/DL (32.0-36.0) Red Cell Distribution Width 13.7 % (11.6-14.8) Platelet Count 137 K/UL (150-450) L Mean Platelet Volume 6.8 FL (6.5-10.1) Neutrophils (%) (Auto) 83.6 % (45.0-75.0) H Lymphocytes (%) (Auto) 7.5 % (20.0-45.0) L Monocytes (%) (Auto) 8.5 % (1.0-10.0) Eosinophils (%) (Auto) 0.0 % (0.0-3.0) Basophils (%) (Auto) 0.4 % (0.0-2.0) Sodium Level 150 MMOL/L (136-145) H Potassium Level 3.1 MMOL/L (3.5-5.1) L Chloride Level 119 MMOL/L (98-107) H Carbon Dioxide Level 25 MMOL/L (21-32) Anion Gap 6 mmol/L (5-15) Blood Urea Nitrogen 28 mg/dL (7-18) H Creatinine 1.1 MG/DL (0.55-1.30) Estimat Glomerular Filtration Rate mL/min (>60) Glucose Level 183 MG/DL (74-106) H Calcium Level 7.9 MG/DL (8.5-10.1) L Phosphorus Level 2.3 MG/DL (2.5-4.9) L Magnesium Level 1.7 MG/DL (1.8-2.4) L Total Bilirubin 0.4 MG/DL (0.2-1.0) Aspartate Amino Transf (AST/SGOT) 70 U/L (15-37) H Alanine Aminotransferase (ALT/SGPT) 218 U/L (12-78) H Alkaline Phosphatase 56 U/L (46-116) Total Protein 5.7 G/DL (6.4-8.2) L Albumin 2.1 G/DL (3.4-5.0) L Globulin 3.6 g/dL Albumin/Globulin Ratio 0.6 (1.0-2.7) L Microbiology Date/Time Source Procedure Growth Status 07/06/19 11:40 Blood Blood Culture - Preliminary NO GROWTH AFTER 48 HOURS Resulted 07/06/19 11:30 Blood Blood Culture - Preliminary NO GROWTH AFTER 48 HOURS Resulted Objective HEAD AND NECK: He is orally intubated. Positive JVD. LUNGS: Decreased breath sounds. CARDIOVASCULAR: Tachycardic. ABDOMEN: Status post G-tube. EXTREMITIES: No pitting edema. Enio Santos MD Jul 09, 2019 10:09
--- NOTE | 2019-07-09 10:10 | NUR ---
NURSE NOTES: Patient seen and assessed by Dr. Santos.
--- NOTE | 2019-07-09 11:04 | NUR ---
NURSE NOTES: Feeding rate at 40cc/hr, approximately 20cc of residual noted. Will continue to monitor.
[2019-07-09] MEDS: Nitroglycerin Patch 0.4mg TDERMAL SCH (12:21)
--- NOTE | 2019-07-09 12:33 | NUR ---
NURSE NOTES: Turned and repositioned patient, oral care done, patient denies any pain, resting comfortably in bed, no signs of acute distress. Will continue to monitor.
--- NOTE | 2019-07-09 12:34 | Diagnostic Imaging Report ---
Indication: Dyspnea Comparison: 07/08/2019 A single view chest radiograph was obtained. Findings: Pulmonary vascular congestion again demonstrated. The left hemidiaphragm is slightly obscured which may be due to underlying pleural effusion and/or parenchymal disease. Right jugular line is stable. Endotracheal tube is stable. Heart size is stable. IMPRESSION: No significant change from the previous day
[2019-07-09] MEDS ORDERED: Sodium Phosphate 30 MM in NS 275 ML IV ONE (13:00)
--- NOTE | 2019-07-09 13:09 | NUR ---
NURSE NOTES: Patient is tolerating feeding well at 40cc/hr, no residuals noted. Will continue to follow protocol until reaching feeding rate goal of 60cc/hr. Will continue to monitor.
[2019-07-09] MEDS ORDERED: NS 275ml ONE (13:15)
[2019-07-09] MEDS ORDERED: Tubing IV Secondary IV ONE (13:15)
--- NOTE | 2019-07-09 15:01 | Nephrology Progress Note ---
Assessment/Plan Problem List: (1) CARA (acute kidney injury) (2) Cardiac arrest with successful resuscitation (3) Respiratory failure with hypoxia (4) Hydronephrosis Assessment patient have Cara due to Low BP and s/p arrest elevated liver enzymes for same reason others: 1. Acute hypoxemic respiratory failure. 2. Hypotension possible sepsis. 3. Diabetes type 2. 4. Parkinson disease. 5. Hypercholesterolemia. 6. EjFx 65% reported 7. Dysphagia. 8. Benign prostatic hypertrophy. Plan Plan: change IV to D5w Nitro- Phos supplement as needed keep BP above 100 syst Pulm support monitor renal parameters [place]: Moderate left hydronephrosis. Juan catheter. Echogenic right kidney. Suspected medical renal disease. Subjective ROS Limited/Unobtainable: No Objective Objective Last 24 Hour Vital Signs Date Time Temp Pulse Resp B/P (MAP) Pulse Ox O2 Delivery O2 Flow Rate FiO2 07/09/19 14:00 60 27 150/61 (90) 100 07/09/19 13:00 98.6 64 24 143/63 (89) 100 07/09/19 12:45 66 16 35 07/09/19 12:21 153/65 07/09/19 12:00 56 15 153/85 (107) 100 07/09/19 12:00 40 07/09/19 12:00 Endotracheal Tube Mechanical Ventilator Mechanical Ventilator Mechanical Ventilator 07/09/19 12:00 53 07/09/19 11:14 99 07/09/19 11:11 63 23 35 07/09/19 11:00 65 45 140/58 (85) 100 07/09/19 10:00 77 29 146/72 (96) 100 07/09/19 09:00 70 24 139/47 (77) 100 07/09/19 08:45 65 14 35 35 07/09/19 08:44 62 18 100 Mechanical Ventilator 35 07/09/19 08:42 64 16 35 07/09/19 08:00 40 07/09/19 08:00 Mechanical Ventilator Mechanical Ventilator Mechanical Ventilator 07/09/19 08:00 98.9 66 22 151/74 (99) 100 07/09/19 07:39 72 07/09/19 07:22 55 16 35 07/09/19 07:00 69 20 155/53 (87) 100 07/09/19 06:30 55 22 07/09/19 06:00 52 29 149/51 (83) 100 07/09/19 05:19 55 16 35 07/09/19 05:00 67 28 112/49 (70) 92 07/09/19 04:00 59 07/09/19 04:00 Mechanical Ventilator Mechanical Ventilator Mechanical Ventilator 07/09/19 04:00 98.8 60 26 132/68 (89) 100 07/09/19 04:00 40 07/09/19 03:00 64 28 157/54 (88) 100 07/09/19 02:54 65 16 35 07/09/19 02:00 60 30 144/54 (84) 100 07/09/19 01:00 66 29 150/57 (88) 100 07/09/19 00:48 60 16 35 07/09/19 00:00 98.4 57 25 150/56 (87) 100 07/09/19 00:00 Mechanical Ventilator Mechanical Ventilator Mechanical Ventilator 07/09/19 00:00 59 07/09/19 00:00 40 07/08/19 23:03 62 16 35 07/08/19 23:00 53 27 121/46 (71) 94 07/08/19 22:00 56 24 134/51 (78) 100 07/08/19 21:08 54 16 35 07/08/19 21:00 52 21 150/62 (91) 100 07/08/19 20:00 Mechanical Ventilator Mechanical Ventilator Mechanical Ventilator 07/08/19 20:00 40 07/08/19 20:00 98.8 53 26 145/54 (84) 100 07/08/19 20:00 59 07/08/19 19:03 67 17 35 07/08/19 19:00 62 30 134/61 (85) 100 07/08/19 18:00 58 30 142/49 (80) 100 07/08/19 17:27 67 17 35 07/08/19 17:00 78 35 164/54 (90) 100 07/08/19 16:00 99.3 57 31 148/56 (86) 100 07/08/19 16:00 52 07/08/19 16:00 Mechanical Ventilator Mechanical Ventilator Mechanical Ventilator 07/08/19 15:30 151/55 07/08/19 15:13 58 16 35 Intake and Output 07/08/19 07/09/19 19:00 07:00 Intake Total 1406.666 ml 595 ml Output Total 1180 ml 695 ml Balance 226.666 ml -100 ml Free Water 100 ml 60 ml IV Total 1216.666 ml 155 ml Tube Feeding 90 ml 380 ml Output Urine Total 1180 ml 695 ml Laboratory Tests 07/09/19 05:13: White Blood Count 8.4, Red Blood Count 3.10L, Hemoglobin 8.6L, Hematocrit 25.6L , Mean Corpuscular Volume 82, Mean Corpuscular Hemoglobin 27.7, Mean Corpuscular Hemoglobin Concent 33.5, Red Cell Distribution Width 13.7, Platelet Count 137L, Mean Platelet Volume 6.8, Neutrophils (%) (Auto) 83.6H, Lymphocytes (%) (Auto) 7.5L, Monocytes (%) (Auto) 8.5, Eosinophils (%) (Auto) 0.0, Basophils (%) (Auto) 0.4, Sodium Level 150H, Potassium Level 3.1L, Chloride Level 119H, Carbon Dioxide Level 25, Anion Gap 6, Blood Urea Nitrogen 28H, Creatinine 1.1, Estimat Glomerular Filtration Rate , Glucose Level 183H, Calcium Level 7.9L, Phosphorus Level 2.3L, Magnesium Level 1.7L, Total Bilirubin 0.4, Aspartate Amino Transf (AST/SGOT) 70H, Alanine Aminotransferase ( ALT/SGPT) 218H, Alkaline Phosphatase 56, Total Protein 5.7L, Albumin 2.1L, Globulin 3.6, Albumin/Globulin Ratio 0.6L 07/09/19 09:45: Arterial Blood pH 7.417, Arterial Blood Partial Pressure CO2 37.2, Arterial Blood Partial Pressure O2 99.4, Arterial Blood HCO3 23.4, Arterial Blood Oxygen Saturation 96.9, Arterial Blood Base Excess -0.9, Phan Test Positive Height (Feet): 5 Height (Inches): 8.00 Weight (Pounds): 169 General Appearance: no apparent distress Cardiovascular: normal rate Abdomen: soft Objective no change Oskar Mohr MD Jul 09, 2019 15:01
[2019-07-09] MEDS ORDERED: Atropine Inj 1mg/10ml Syr ONE (15:52)
--- NOTE | 2019-07-09 16:00 | NUR ---
PROGRAM HOST NOTE АЛЕКСАНДР met w/ pt's /JATINDER Suero and received the copy of AD and POA. АЛЕКСАНДР placed them in the chart. Charge nurse was informed. Signed: 07/09/19 at 1601 by CLIF FOUNTAIN <Co-Signature Required>
--- NOTE | 2019-07-09 17:35 | Internal Med Progress Note ---
Subjective Date of Service: Jul 09, 2019 Physician Name Shukri Glover Attending Physician Rayshawn Woods MD Current Medications Medications (Trade) Dose Ordered Sig/Genoveva Route PRN Reason Start Time Stop Time Status Last Admin Dose Admin Acetaminophen (Tylenol) 650 mg Q6H PRN ORAL Mild Pain/Temp > 100.5 07/05/19 15:00 08/03/19 14:59 07/05/19 21:22 Cefepime HCl 1 gm/ Dextrose 55 ml @ 110 mls/hr Q24H IVPB 07/05/19 21:00 07/11/19 20:59 07/08/19 20:53 Chlorhexidine Gluconate (Alondra-Hex 2%) 1 applic DAILY@2000 TOPIC 07/05/19 20:00 08/04/19 19:59 07/08/19 20:15 Hydralazine HCl (Apresoline) 10 mg Q4H PRN IV bp over 160 syst 07/06/19 12:30 08/05/19 12:29 Hydrocortisone (Solu-CORTEF) 100 mg EVERY 8 HOURS IV 07/05/19 14:30 08/04/19 14:29 07/09/19 13:55 Lorazepam (Ativan 2mg/ml 1ml) 2 mg Q4H PRN IV For Anxiety 07/05/19 15:15 07/12/19 11:14 Metronidazole 100 ml @ 100 mls/hr Q12HR IVPB 07/05/19 21:00 07/11/19 08:59 07/09/19 08:00 Morphine Sulfate (Morphine Sulfate) 4 mg Q4H PRN IVP For Severe Pain (6 to 10) 07/05/19 15:15 07/12/19 11:14 Nitroglycerin (Ntg) 1 patch Q24H TDERMAL 07/06/19 12:30 08/05/19 12:29 07/09/19 12:21 Norepinephrine Bitartrate 4 mg/ Dextrose 250 ml @ 0 mls/hr Q24H IV 07/06/19 15:30 08/04/19 15:29 Pantoprazole (Protonix) 40 mg Q12HR IV 07/05/19 21:00 08/04/19 11:14 07/09/19 08:00 Promethazine HCl/ Codeine (Phenergan with Codeine) 5 ml Q4H PRN ORAL For Cough 07/05/19 15:30 08/03/19 07:29 Sodium Phosphate 30 mm/Sodium Chloride 285 ml @ 47.5 mls/hr ONCE ONCE IV 07/09/19 13:00 07/09/19 18:59 07/09/19 13:00 Allergies: Coded Allergies: PENICILLINS (Verified Allergy, Unknown, 07/04/19) ROS Limited/Unobtainable: Yes Subjective 83 YO M admitted with dyspnea, now respiratory failure. Cover for [facility] Chris-Dr Woods. ICU. Intubated and sedated Objective Last Vital Signs Date Time Temp Pulse Resp B/P (MAP) Pulse Ox O2 Delivery O2 Flow Rate FiO2 07/09/19 17:19 59 16 35 07/09/19 17:00 153/58 (89) 100 07/09/19 16:00 Endotracheal Tube Mechanical Ventilator Mechanical Ventilator Mechanical Ventilator 07/09/19 16:00 99.0 07/05/19 09:00 12.0 Laboratory Tests Test 07/09/19 05:13 07/09/19 09:45 White Blood Count 8.4 K/UL (4.8-10.8) Red Blood Count 3.10 M/UL (4.70-6.10) L Hemoglobin 8.6 G/DL (14.2-18.0) L Hematocrit 25.6 % (42.0-52.0) L Mean Corpuscular Volume 82 FL (80-99) Mean Corpuscular Hemoglobin 27.7 PG (27.0-31.0) Mean Corpuscular Hemoglobin Concent 33.5 G/DL (32.0-36.0) Red Cell Distribution Width 13.7 % (11.6-14.8) Platelet Count 137 K/UL (150-450) L Mean Platelet Volume 6.8 FL (6.5-10.1) Neutrophils (%) (Auto) 83.6 % (45.0-75.0) H Lymphocytes (%) (Auto) 7.5 % (20.0-45.0) L Monocytes (%) (Auto) 8.5 % (1.0-10.0) Eosinophils (%) (Auto) 0.0 % (0.0-3.0) Basophils (%) (Auto) 0.4 % (0.0-2.0) Sodium Level 150 MMOL/L (136-145) H Potassium Level 3.1 MMOL/L (3.5-5.1) L Chloride Level 119 MMOL/L (98-107) H Carbon Dioxide Level 25 MMOL/L (21-32) Anion Gap 6 mmol/L (5-15) Blood Urea Nitrogen 28 mg/dL (7-18) H Creatinine 1.1 MG/DL (0.55-1.30) Estimat Glomerular Filtration Rate mL/min (>60) Glucose Level 183 MG/DL (74-106) H Calcium Level 7.9 MG/DL (8.5-10.1) L Phosphorus Level 2.3 MG/DL (2.5-4.9) L Magnesium Level 1.7 MG/DL (1.8-2.4) L Total Bilirubin 0.4 MG/DL (0.2-1.0) Aspartate Amino Transf (AST/SGOT) 70 U/L (15-37) H Alanine Aminotransferase (ALT/SGPT) 218 U/L (12-78) H Alkaline Phosphatase 56 U/L (46-116) Total Protein 5.7 G/DL (6.4-8.2) L Albumin 2.1 G/DL (3.4-5.0) L Globulin 3.6 g/dL Albumin/Globulin Ratio 0.6 (1.0-2.7) L Arterial Blood pH 7.417 (7.350-7.450) Arterial Blood Partial Pressure CO2 37.2 mmHg (35.0-45.0) Arterial Blood Partial Pressure O2 99.4 mmHg (75.0-100.0) Arterial Blood HCO3 23.4 mmol/L (22.0-26.0) Arterial Blood Oxygen Saturation 96.9 % (95-100) Arterial Blood Base Excess -0.9 (-2-2) Phan Test Positive Intake and Output 07/08/19 07/09/19 19:00 07:00 Intake Total 1406.666 ml 595 ml Output Total 1180 ml 695 ml Balance 226.666 ml -100 ml Free Water 100 ml 60 ml IV Total 1216.666 ml 155 ml Tube Feeding 90 ml 380 ml Output Urine Total 1180 ml 695 ml Objective PHYSICAL EXAMINATION: GENERAL: The patient is a well-developed and well-nourished male, in moderate respiratory distress. HEENT: Eyes, pupils are equal and responsive to light and accommodation. Extraocular movements are intact. NECK: Supple without lymphadenopathy. CHEST: Mech Vent; Coarse breath sounds bilaterally with expiratory wheezes. Otherwise, without crackles. ABDOMINAL: Soft, nontender, and nondistended. Positive bowel sounds. No evidence of hepatosplenomegaly. Currently, no rebound or guarding noted. CARDIOVASCULAR: Tachycardic. Regular rhythm. S1 and S2 are normal without murmurs, rubs, or gallops. GENITOURINARY: Deferred. NEUROLOGICAL: Cranial nerves II to XII are grossly intact without focal deficits. EXTREMITIES: Negative for clubbing, cyanosis, or edema. Assessment/Plan Assessment/Plan ASSESSMENT: This is an 83-year-old male. 1. Dyspnea. 2. Respiratory distress. 3. Diabetes type 2. 4. Parkinson disease. 5. Hypercholesterolemia. 6. Dilated cardiomyopathy. 7. Dysphagia. 8. Benign prostatic hypertrophy. TREATMENT: 1. Dyspnea/respiratory distress. A Pulmonary consultation has been obtained with Dr. Kathryn Lopez. The patient is currently on [facility] vent. ABX=vanco, flagyl and cefepime intravenously. We will follow recommendations of Pulmonary. 2. Diabetes type 2. 3. Hypercholesterolemia. 4. Dilated cardiomyopathy. 5. Dysphagia. The patient is status post PEG placement. 6. Hypertensive heart disease. 7. Benign prostatic hypertrophy. 8. ID=Shukri Rodriguez MD Jul 09, 2019 17:35
--- NOTE | 2019-07-09 18:16 | NUR ---
NURSE NOTES: Gave bed bath to patient and repositioned, patient tolerated well, no signs of acute distress, patient denies any pain. Will continue to monitor.
--- NOTE | 2019-07-09 18:56 | NUR ---
RESPIRATORY NOTE: Received pt on AC 16, 650VT, 35%, no PEEP. Pt intubated w/ ETT 7.5 @ 23cm lipline, secured by anchorfast. Pt is awake, responds to stimuli. B/S hao. rhonchi, sxn small amounts of thick/thin, clear-white secretions. Both hands on soft restraints to prevent pt from self-extubation. Vent plugged into red outlet, ambubag at bedside. Pt in no apparent distress at this time. Will continue to monitor pt.
--- NOTE | 2019-07-09 19:03 | NUR ---
HAND-OFF: Report given to Keysha HERMAN.
--- NOTE | 2019-07-09 19:46 | NUR ---
NURSE NOTES: received report from palomo rn pt orally intubated -vent awake follows command on hao soft wrest restraints non complaint tolerating tube feeding no residual reposition and suction
[2019-07-09] MEDS: Dyna-Hex 2% Top Sol 2oz TOPIC SCH (20:43)
[2019-07-09] MEDS: Cefepime HCl 1 GM in D5W 55 ML IVPB SCH (20:44)
--- NOTE | 2019-07-09 22:00 | NUR ---
NURSE NOTES: TOLERATED TUBE FEEDING REPOSITION AND SUCTION
[2019-07-10] VITALS (25 sets, daily range): BP systolic 111–180; BP diastolic 50–103
--- NOTE | 2019-07-10 | NUR ---
NURSE NOTES: reposition and reposition tube feeding residual 30cc comt monitor
--- NOTE | 2019-07-10 02:00 | NUR ---
NURSE NOTES: no vomiting residual 30cc
--- NOTE | 2019-07-10 04:00 | NUR ---
NURSE NOTES: complete bed bath oral care done no bm wound care done
[2019-07-10 05:37] LABS: HEMOGLOBIN 9.5 G/DL (14.2-18.0); MEAN CORPUSCULAR VOLUME 83 FL (80-99); PLATELET COUNT 152 K/UL (150-450); RED BLOOD COUNT 3.39 M/UL (4.70-6.10); RED CELL DISTRIBUTION WIDTH 13.8 % (11.6-14.8); WHITE BLOOD COUNT 12.8 K/UL (4.8-10.8)
[2019-07-10 05:42] LABS: ALANINE AMINOTRANSFERASE 197 U/L (12-78); ALBUMIN 2.2 G/DL (3.4-5.0); ALBUMIN/GLOBULIN RATIO 0.6 (1.0-2.7); ALKALINE PHOSPHATASE 75 U/L (46-116); ANION GAP 8 mmol/L (5-15); ASPARTATE AMINO TRANSFERASE 42 U/L (15-37); BILIRUBIN,TOTAL 0.3 MG/DL (0.2-1.0); BLOOD UREA NITROGEN 28 mg/dL (7-18); CALCIUM 7.5 MG/DL (8.5-10.1); CARBON DIOXIDE 28 MMOL/L (21-32); CHLORIDE 117 MMOL/L (98-107); CREATININE 1.1 MG/DL (0.55-1.30); SODIUM 152 MMOL/L (136-145)
--- NOTE | 2019-07-10 06:00 | NUR ---
NURSE NOTES: tube feeding hold for kierra graff
[2019-07-10] MEDS: Hydrocortisone 100mg Inj IV SCH ×3 (06:01→21:12)
--- NOTE | 2019-07-10 07:14 | NUR ---
NURSE NOTES: Endorsement received from VIRGIL Chopra. Patient opens eyes spontaneously, tracking and following simple commands. Orally intubated with ETT 7.5, 24cm @ the lipline. AC 16, 650, 35% FiO2, 0 PEEP; O2Sat 100%. Right forearm #22g, and Right IJ TLC, intact, patent and asymptomatic. NSR on athletics teacher. Pt received and maintained on bilateral soft wrists restraints for safety. GT present- Tube feeds Vital AF @ 60mL/hr ordered, however, TF on hold for weaning this AM. Juan catheter draining yellow urine to urometer. Head of bed elevated. Bed alarm on. Bed locked and in lowest position with call light within reach. Will resume plan of care.
--- NOTE | 2019-07-10 07:22 | NUR ---
NURSE NOTES: SBAR from Lidia HERMAN. Patient is awake, alert and tracks movements with heads, non-verbal at this time. Patient is currently intubated ETT 7.5/24cm at lower lip line. AC 16, 650tv, 35% Fio2 and zero peep. Rale lung sounds at lower lung bases. GT feeds receiving Vital at 60 ml/hr. Abdomen non-tender, hypoactive Bowel sounds. Juan catheter noted, yellow urine. HR is 62 NSR on the monitor. BP is 158/82. Right IJ noted dyr and intact, patent receiving D5W at 100ml/hr. Labs noted. upper bilateral extremity strength 3/5. Bilateral soft wrist restraints noted, pulses are noted and skin is intact. Generalized edema noted throughout. Wounds noted, P200 noted. Safety measures are in place. Addendum: 07/10/19 at 1922 by BLAIRE SHIPMAN RN disregard, wrong time
--- NOTE | 2019-07-10 07:24 | NUR ---
HAND-OFF: Report given to kiana hall using sbar.
--- NOTE | 2019-07-10 07:50 | Urology Progress Note ---
Assessment/Plan Assessment/Plan: 1. Left-sided hydronephrosis. 2. Proteinuria. 3. Hematuria. 4. Pyuria. 5. Urinary retention. 6. BPH history. 7. Rule out neurogenic bladder. 8. Mild acute kidney injury, improved. monitor clinically maintain nixon hand irrigate PRN abx as ordered f/u on blood cx CT A/P ordered, to be done once more medically stabilized monitor renal fxn Subjective Allergies: Coded Allergies: PENICILLINS (Verified Allergy, Unknown, 07/04/19) Subjective all noted, remains on vent Objective Last 24 Hour Vital Signs Date Time Temp Pulse Resp B/P (MAP) Pulse Ox O2 Delivery O2 Flow Rate FiO2 07/10/19 07:23 63 17 35 07/10/19 07:00 74 30 148/64 (92) 100 07/10/19 06:30 68 23 07/10/19 06:00 73 20 135/62 (86) 100 07/10/19 05:20 75 16 35 07/10/19 05:00 69 40 129/60 (83) 100 07/10/19 04:00 61 23 180/82 (114) 100 07/10/19 04:00 Endotracheal Tube Mechanical Ventilator Mechanical Ventilator Mechanical Ventilator 07/10/19 04:00 74 07/10/19 04:00 40 07/10/19 03:00 69 35 111/50 (70) 100 07/10/19 02:47 78 20 35 07/10/19 02:00 75 21 132/51 (78) 100 07/10/19 01:00 69 28 160/79 (106) 100 07/10/19 00:59 71 16 35 07/10/19 00:00 98.6 60 36 149/56 (87) 100 07/10/19 00:00 40 07/10/19 00:00 Endotracheal Tube Mechanical Ventilator Mechanical Ventilator Mechanical Ventilator 07/09/19 23:00 64 34 143/55 (84) 100 07/09/19 22:47 57 16 35 07/09/19 22:00 63 29 128/51 (76) 100 07/09/19 21:03 68 17 35 07/09/19 21:00 66 21 141/57 (85) 100 07/09/19 20:00 98.5 55 37 136/53 (80) 100 07/09/19 20:00 65 07/09/19 20:00 Endotracheal Tube Mechanical Ventilator Mechanical Ventilator Mechanical Ventilator 07/09/19 20:00 40 07/09/19 19:00 69 25 152/73 (99) 100 07/09/19 18:53 66 16 35 07/09/19 18:00 63 29 143/60 (87) 100 07/09/19 18:00 64 32 143/60 (87) 100 07/09/19 17:19 59 16 35 07/09/19 17:00 62 22 153/58 (89) 100 07/09/19 16:04 53 07/09/19 16:00 Endotracheal Tube Mechanical Ventilator Mechanical Ventilator Mechanical Ventilator 07/09/19 16:00 99.0 63 45 147/60 (89) 100 07/09/19 16:00 40 07/09/19 15:30 146/57 07/09/19 15:25 65 18 35 07/09/19 15:00 57 31 144/64 (90) 100 07/09/19 14:00 60 27 150/61 (90) 100 07/09/19 13:00 98.6 64 24 143/63 (89) 100 07/09/19 12:45 66 16 35 07/09/19 12:21 153/65 07/09/19 12:00 56 15 153/85 (107) 100 07/09/19 12:00 40 07/09/19 12:00 Endotracheal Tube Mechanical Ventilator Mechanical Ventilator Mechanical Ventilator 07/09/19 12:00 53 07/09/19 11:14 99 07/09/19 11:11 63 23 35 07/09/19 11:00 65 45 140/58 (85) 100 07/09/19 10:00 77 29 146/72 (96) 100 07/09/19 09:00 70 24 139/47 (77) 100 07/09/19 08:45 65 14 35 35 07/09/19 08:44 62 18 100 Mechanical Ventilator 35 07/09/19 08:42 64 16 35 07/09/19 08:00 40 07/09/19 08:00 Mechanical Ventilator Mechanical Ventilator Mechanical Ventilator 07/09/19 08:00 98.9 66 22 151/74 (99) 100 Intake and Output 07/09/19 07/10/19 18:59 06:59 Intake Total 1467.50 ml 962.5 ml Output Total 750 ml 900 ml Balance 717.50 ml 62.5 ml Free Water 50 ml 40 ml IV Total 937.50 ml 202.5 ml Tube Feeding 480 ml 720 ml Output Urine Total 750 ml 900 ml Microbiology Date/Time Source Procedure Growth Status 07/06/19 11:40 Blood Blood Culture - Preliminary NO GROWTH AFTER 72 HOURS Resulted 07/04/19 10:15 Sputum Gram Stain - Final Complete 07/04/19 10:15 Sputum Culture - Final Nicolle Albicans Usual Respiratory Valery Complete 07/04/19 01:25 Urine,Clean Catch Urine Culture - Final NO GROWTH AFTER 48 HOURS Complete 07/04/19 00:43 Rectum - Final NO CARBAPENEM-RESISTANT ENTEROBACTERI... Complete Current Medications Medications (Trade) Dose Ordered Sig/Genoveva Route PRN Reason Start Time Stop Time Status Last Admin Dose Admin Acetaminophen (Tylenol) 650 mg Q6H PRN ORAL Mild Pain/Temp > 100.5 07/05/19 15:00 08/03/19 14:59 07/05/19 21:22 Cefepime HCl 1 gm/ Dextrose 55 ml @ 110 mls/hr Q24H IVPB 07/05/19 21:00 07/11/19 20:59 07/09/19 20:44 Chlorhexidine Gluconate (Alondra-Hex 2%) 1 applic DAILY@2000 TOPIC 07/05/19 20:00 08/04/19 19:59 07/09/19 20:43 Hydralazine HCl (Apresoline) 10 mg Q4H PRN IV bp over 160 syst 07/06/19 12:30 08/05/19 12:29 Hydrocortisone (Solu-CORTEF) 100 mg EVERY 8 HOURS IV 07/05/19 14:30 08/04/19 14:29 07/10/19 06:01 Lorazepam (Ativan 2mg/ml 1ml) 2 mg Q4H PRN IV For Anxiety 07/05/19 15:15 07/12/19 11:14 Metronidazole 100 ml @ 100 mls/hr Q12HR IVPB 07/05/19 21:00 07/11/19 08:59 07/09/19 20:44 Morphine Sulfate (Morphine Sulfate) 4 mg Q4H PRN IVP For Severe Pain (6 to 10) 07/05/19 15:15 07/12/19 11:14 Nitroglycerin (Ntg) 1 patch Q24H TDERMAL 07/06/19 12:30 08/05/19 12:29 07/09/19 12:21 Norepinephrine Bitartrate 4 mg/ Dextrose 250 ml @ 0 mls/hr Q24H IV 07/06/19 15:30 08/04/19 15:29 Pantoprazole (Protonix) 40 mg Q12HR IV 07/05/19 21:00 08/04/19 11:14 07/09/19 20:43 Promethazine HCl/ Codeine (Phenergan with Codeine) 5 ml Q4H PRN ORAL For Cough 07/05/19 15:30 08/03/19 07:29 Laboratory Tests 07/09/19 09:45: Arterial Blood pH 7.417, Arterial Blood Partial Pressure CO2 37.2, Arterial Blood Partial Pressure O2 99.4, Arterial Blood HCO3 23.4, Arterial Blood Oxygen Saturation 96.9, Arterial Blood Base Excess -0.9, Phan Test Positive 07/10/19 04:30: White Blood Count 12.8#H, Red Blood Count 3.39L, Hemoglobin 9.5L, Hematocrit 28.0L, Mean Corpuscular Volume 83, Mean Corpuscular Hemoglobin 28.1, Mean Corpuscular Hemoglobin Concent 34.1, Red Cell Distribution Width 13.8, Platelet Count 152, Mean Platelet Volume 7.8, Neutrophils (%) (Auto) , Lymphocytes (%) ( Auto) , Monocytes (%) (Auto) , Eosinophils (%) (Auto) , Basophils (%) (Auto) , Sodium Level 152H, Potassium Level 3.0L, Chloride Level 117H, Carbon Dioxide Level 28, Anion Gap 8, Blood Urea Nitrogen 28H, Creatinine 1.1, Estimat Glomerular Filtration Rate , Glucose Level 212H, Calcium Level 7.5L, Phosphorus Level 3.0, Magnesium Level 1.9, Total Bilirubin 0.3, Aspartate Amino Transf (AST /SGOT) 42H, Alanine Aminotransferase (ALT/SGPT) 197H, Alkaline Phosphatase 75, Total Protein 5.9L, Albumin 2.2L, Globulin 3.7, Albumin/Globulin Ratio 0.6L Height (Feet): 5 Height (Inches): 8.00 Weight (Pounds): 158 Objective exam stable nixon indwelling urine yellow/kristen, occasional debris Bamshad,Clayton Varma MD Jul 10, 2019 07:50
[2019-07-10] MEDS: Pantoprazole Inj IV SCH ×2 (08:45→21:11)
--- NOTE | 2019-07-10 09:00 | NUR ---
NURSE NOTES: Weaning started at 0726. CPAP 5, PS 8. Pt has been tolerating it well, O2Sat 98-100%. ABG done by RT. Will continue to monitor.
--- NOTE | 2019-07-10 09:19 | NUR ---
RADIOLOGY DEPT., CHEST X-RAY DONE.-P.DYE
[2019-07-10] MEDS ORDERED: NS 275ml ONE (10:18)
[2019-07-10] MEDS ORDERED: NS 500ML ONE (10:19)
[2019-07-10] MEDS ORDERED: Tubing IV Secondary IV ONE (10:19)
--- NOTE | 2019-07-10 11:07 | Nephrology Progress Note ---
Assessment/Plan Problem List: (1) CARA (acute kidney injury) (2) Cardiac arrest with successful resuscitation (3) Respiratory failure with hypoxia (4) Hydronephrosis Assessment patient have Cara due to Low BP and s/p arrest elevated liver enzymes for same reason others: 1. Acute hypoxemic respiratory failure. 2. Hypotension possible sepsis. 3. Diabetes type 2. 4. Parkinson disease. 5. Hypercholesterolemia. 6. EjFx 65% reported 7. Dysphagia. 8. Benign prostatic hypertrophy. Plan Plan: D5w one liter Nitro- Phos , K , Mag supplement as needed keep BP above 100 syst Pulm support monitor renal parameters discussed with RN VALENTINA: Moderate left hydronephrosis. Juan catheter. Echogenic right kidney. Suspected medical renal disease. Subjective ROS Limited/Unobtainable: Yes Objective Objective Last 24 Hour Vital Signs Date Time Temp Pulse Resp B/P (MAP) Pulse Ox O2 Delivery O2 Flow Rate FiO2 07/10/19 10:00 65 33 133/60 (84) 100 07/10/19 09:00 70 29 123/57 (79) 100 07/10/19 08:35 87 29 35 07/10/19 08:00 98.8 78 29 143/70 (94) 100 07/10/19 08:00 Endotracheal Tube Mechanical Ventilator Mechanical Ventilator Mechanical Ventilator 07/10/19 07:32 69 07/10/19 07:26 35 07/10/19 07:26 100 07/10/19 07:23 63 17 35 07/10/19 07:00 74 30 148/64 (92) 100 07/10/19 06:30 68 23 07/10/19 06:00 73 20 135/62 (86) 100 07/10/19 05:20 75 16 35 07/10/19 05:00 69 40 129/60 (83) 100 07/10/19 04:00 61 23 180/82 (114) 100 07/10/19 04:00 Endotracheal Tube Mechanical Ventilator Mechanical Ventilator Mechanical Ventilator 07/10/19 04:00 74 07/10/19 04:00 40 07/10/19 03:00 69 35 111/50 (70) 100 07/10/19 02:47 78 20 35 07/10/19 02:00 75 21 132/51 (78) 100 07/10/19 01:00 69 28 160/79 (106) 100 07/10/19 00:59 71 16 35 07/10/19 00:00 98.6 60 36 149/56 (87) 100 07/10/19 00:00 40 07/10/19 00:00 Endotracheal Tube Mechanical Ventilator Mechanical Ventilator Mechanical Ventilator 07/09/19 23:00 64 34 143/55 (84) 100 07/09/19 22:47 57 16 35 07/09/19 22:00 63 29 128/51 (76) 100 07/09/19 21:03 68 17 35 07/09/19 21:00 66 21 141/57 (85) 100 07/09/19 20:00 98.5 55 37 136/53 (80) 100 07/09/19 20:00 65 07/09/19 20:00 Endotracheal Tube Mechanical Ventilator Mechanical Ventilator Mechanical Ventilator 07/09/19 20:00 40 07/09/19 19:00 69 25 152/73 (99) 100 07/09/19 18:53 66 16 35 07/09/19 18:00 63 29 143/60 (87) 100 07/09/19 18:00 64 32 143/60 (87) 100 07/09/19 17:19 59 16 35 07/09/19 17:00 62 22 153/58 (89) 100 07/09/19 16:04 53 07/09/19 16:00 Endotracheal Tube Mechanical Ventilator Mechanical Ventilator Mechanical Ventilator 07/09/19 16:00 99.0 63 45 147/60 (89) 100 07/09/19 16:00 40 07/09/19 15:30 146/57 07/09/19 15:25 65 18 35 07/09/19 15:00 57 31 144/64 (90) 100 07/09/19 14:00 60 27 150/61 (90) 100 07/09/19 13:00 98.6 64 24 143/63 (89) 100 07/09/19 12:45 66 16 35 07/09/19 12:21 153/65 07/09/19 12:00 56 15 153/85 (107) 100 07/09/19 12:00 40 07/09/19 12:00 Endotracheal Tube Mechanical Ventilator Mechanical Ventilator Mechanical Ventilator 07/09/19 12:00 53 07/09/19 11:14 99 07/09/19 11:11 63 23 35 Intake and Output 07/09/19 07/10/19 19:00 07:00 Intake Total 1545.00 ml 855 ml Output Total 665 ml 920 ml Balance 880.00 ml -65 ml Free Water 50 ml 40 ml IV Total 985.00 ml 155 ml Tube Feeding 510 ml 660 ml Output Urine Total 665 ml 920 ml Laboratory Tests 07/10/19 04:30: White Blood Count 12.8#H, Red Blood Count 3.39L, Hemoglobin 9.5L, Hematocrit 28.0L, Mean Corpuscular Volume 83, Mean Corpuscular Hemoglobin 28.1, Mean Corpuscular Hemoglobin Concent 34.1, Red Cell Distribution Width 13.8, Platelet Count 152, Mean Platelet Volume 7.8, Neutrophils (%) (Auto) , Lymphocytes (%) ( Auto) , Monocytes (%) (Auto) , Eosinophils (%) (Auto) , Basophils (%) (Auto) , Sodium Level 152H, Potassium Level 3.0L, Chloride Level 117H, Carbon Dioxide Level 28, Anion Gap 8, Blood Urea Nitrogen 28H, Creatinine 1.1, Estimat Glomerular Filtration Rate , Glucose Level 212H, Calcium Level 7.5L, Phosphorus Level 3.0, Magnesium Level 1.9, Total Bilirubin 0.3, Aspartate Amino Transf (AST /SGOT) 42H, Alanine Aminotransferase (ALT/SGPT) 197H, Alkaline Phosphatase 75, Total Protein 5.9L, Albumin 2.2L, Globulin 3.7, Albumin/Globulin Ratio 0.6L 07/10/19 08:31: Arterial Blood pH 7.451H, Arterial Blood Partial Pressure CO2 41.6, Arterial Blood Partial Pressure O2 95.8, Arterial Blood HCO3 28.3H, Arterial Blood Oxygen Saturation 96.6, Arterial Blood Base Excess 4.0H, Phan Test Positive Height (Feet): 5 Height (Inches): 8.00 Weight (Pounds): 158 General Appearance: no apparent distress EENT: other - vented Cardiovascular: normal rate Respiratory/Chest: decreased breath sounds Abdomen: distended Objective no change Oskar Mohr MD Jul 10, 2019 11:07
--- NOTE | 2019-07-10 11:11 | Pulmonolgy Critical Care Note ---
Critical Care - Asmt/Plan Assessment/Plan: ASSESSMENT s/p Bradycardic arrest with successful resuscitation Acute hypoxemic respiratory failure requiring intubation Elevated troponin/NSTEMI likely due to cardiac arrest Sepsis Probable UTI Aspiration pneumonia versus pneumonitis Acute kidney injury Dehydration Hyponatremia Dysphagia feeding by G-tube Diabetes mellitus Parkinson disease Left hydronephrosis Anemia PLAN OF CARE ICU Vent support, pulm toilet weaning protocol fup with ABG and CXR ABG stable on CPAP with PS 8 ; however tachypneic and new leukocytosis today ( ? steroid related, no fevers) , will hold on extubating today and continue with weaning in am \ ABG and CXR in am Venous negative VQ scan with low prob of PE abx as per ID monitor h/d status - improved; off any AV blocking agents cardio follows ECHO with pEF 60% and RVSP of 32 on stress dose of steroids IVF, monitor renal parameters, correct lytes prn / K Calcium WNL if corrected for low albumin / as per nephro explanation renal US+mod L hydro nephro and urology on board GTF, asp precautions BS management with SSI case discussed and evaluated by supervising physician Critical Care - Objective Last 24 Hour Vital Signs Date Time Temp Pulse Resp B/P (MAP) Pulse Ox O2 Delivery O2 Flow Rate FiO2 07/10/19 10:00 65 33 133/60 (84) 100 07/10/19 09:00 70 29 123/57 (79) 100 07/10/19 08:35 87 29 35 07/10/19 08:00 98.8 78 29 143/70 (94) 100 07/10/19 08:00 Endotracheal Tube Mechanical Ventilator Mechanical Ventilator Mechanical Ventilator 07/10/19 07:32 69 07/10/19 07:26 35 07/10/19 07:26 100 07/10/19 07:23 63 17 35 07/10/19 07:00 74 30 148/64 (92) 100 07/10/19 06:30 68 23 07/10/19 06:00 73 20 135/62 (86) 100 07/10/19 05:20 75 16 35 07/10/19 05:00 69 40 129/60 (83) 100 07/10/19 04:00 61 23 180/82 (114) 100 07/10/19 04:00 Endotracheal Tube Mechanical Ventilator Mechanical Ventilator Mechanical Ventilator 07/10/19 04:00 74 07/10/19 04:00 40 07/10/19 03:00 69 35 111/50 (70) 100 07/10/19 02:47 78 20 35 07/10/19 02:00 75 21 132/51 (78) 100 07/10/19 01:00 69 28 160/79 (106) 100 07/10/19 00:59 71 16 35 07/10/19 00:00 98.6 60 36 149/56 (87) 100 07/10/19 00:00 40 07/10/19 00:00 Endotracheal Tube Mechanical Ventilator Mechanical Ventilator Mechanical Ventilator 07/09/19 23:00 64 34 143/55 (84) 100 07/09/19 22:47 57 16 35 07/09/19 22:00 63 29 128/51 (76) 100 07/09/19 21:03 68 17 35 07/09/19 21:00 66 21 141/57 (85) 100 07/09/19 20:00 98.5 55 37 136/53 (80) 100 07/09/19 20:00 65 07/09/19 20:00 Endotracheal Tube Mechanical Ventilator Mechanical Ventilator Mechanical Ventilator 07/09/19 20:00 40 07/09/19 19:00 69 25 152/73 (99) 100 07/09/19 18:53 66 16 35 07/09/19 18:00 63 29 143/60 (87) 100 07/09/19 18:00 64 32 143/60 (87) 100 07/09/19 17:19 59 16 35 07/09/19 17:00 62 22 153/58 (89) 100 07/09/19 16:04 53 07/09/19 16:00 Endotracheal Tube Mechanical Ventilator Mechanical Ventilator Mechanical Ventilator 07/09/19 16:00 99.0 63 45 147/60 (89) 100 07/09/19 16:00 40 07/09/19 15:30 146/57 07/09/19 15:25 65 18 35 07/09/19 15:00 57 31 144/64 (90) 100 07/09/19 14:00 60 27 150/61 (90) 100 07/09/19 13:00 98.6 64 24 143/63 (89) 100 07/09/19 12:45 66 16 35 07/09/19 12:21 153/65 07/09/19 12:00 56 15 153/85 (107) 100 07/09/19 12:00 40 07/09/19 12:00 Endotracheal Tube Mechanical Ventilator Mechanical Ventilator Mechanical Ventilator 07/09/19 12:00 53 07/09/19 11:14 99 07/09/19 11:11 63 23 35 Status: awake, other - on vent orally intubated , currently weaning on CPAP PS8 Condition: critical HEENT: atraumatic, normocephalic, other - OP with ET in place, intact Lungs: clear Heart: HR/BP stable Abdomen: soft, non-tender, active bowel sounds, feeding tube - G tube , tolerating feeding Extremities: no C/C/E Critical Care - Subjective ROS Limited/Unobtainable: Yes Interval Events: on weaning protocol with CPAP PS8 ABG stable leukocytosis today, afebrile K-3.0 Condition: critical IV Access: peripheral EKG Rhythm: Sinus Rhythm FI02: 35 Vent Support Breath Rate: 16 Vent Support Mode: CPAP Vent Tidal Volume: 650 Sputum Amount: Small PEEP: 0.0 PIP: 14 Tube Feeding Amount: 0 I&O: Intake and Output 07/09/19 07/10/19 18:59 06:59 Intake Total 1467.50 ml 962.5 ml Output Total 750 ml 900 ml Balance 717.50 ml 62.5 ml Free Water 50 ml 40 ml IV Total 937.50 ml 202.5 ml Tube Feeding 480 ml 720 ml Output Urine Total 750 ml 900 ml ET-Tube: 7.5 ET Position: 24 Valerie Balderrama NP Jul 10, 2019 11:11
--- NOTE | 2019-07-10 11:42 | Infectious Diseases Prog Note ---
Assessment/Plan Assessment/Plan Assessment: Shock, SP s/p cardiac arrest 07/05 Sepsis Probable UTI Acute hypoxic respiratory failure, intubated 07/05 Aspiration pneumonia vs pneumonitis Gram positive bacteremia- contaminant -07/06 Bcx NTD -07/05 CXR:Mild CHF -u/a wbc 5-10, nit neg, leuk +2; ucx Neg -Bcx 06/08 dipteriods -sp cx usual resp rupert -CXR: No acute process -influenza sc neg -v. duplex: no DVT -V/q scan:Findings are deemed low probability for pulmonary embolus Fever; SP Mild leukocytosis CARA; improving Dm2 dysphagia s/p GT hx of PNA parkinson disease HTN bed bound NH resident Plan: -Continue empiric Cefepime #7 and Flagyl #6 -07/09 SP IV Vancomycin #5 -07/04 SP Levaquin x1 -f/u cx -Monitor CBC/CMP, temperatures -aspiration precautions -ICU/ETT/GT care -Cards, nephro f/u -f/u repeat Bcx x2 Thank you for this consultation. Will continue to follow along with you. Discussed with RN. Subjective Allergies: Coded Allergies: PENICILLINS (Verified Allergy, Unknown, 07/04/19) Subjective afebrile remains in ICU intubated repeat Bcx NTD no pressors mild leukocytosis Objective Vital Signs Last 24 Hour Vital Signs Date Time Temp Pulse Resp B/P (MAP) Pulse Ox O2 Delivery O2 Flow Rate FiO2 07/10/19 11:30 74 30 151/65 (93) 100 07/10/19 11:14 66 29 35 07/10/19 11:00 73 24 151/65 (93) 100 07/10/19 10:00 65 33 133/60 (84) 100 07/10/19 09:00 70 29 123/57 (79) 100 07/10/19 08:35 87 29 35 07/10/19 08:00 98.8 78 29 143/70 (94) 100 07/10/19 08:00 Endotracheal Tube Mechanical Ventilator Mechanical Ventilator Mechanical Ventilator 07/10/19 07:32 69 07/10/19 07:26 35 07/10/19 07:26 100 07/10/19 07:23 63 17 35 07/10/19 07:00 74 30 148/64 (92) 100 07/10/19 06:30 68 23 07/10/19 06:00 73 20 135/62 (86) 100 07/10/19 05:20 75 16 35 07/10/19 05:00 69 40 129/60 (83) 100 07/10/19 04:00 61 23 180/82 (114) 100 07/10/19 04:00 Endotracheal Tube Mechanical Ventilator Mechanical Ventilator Mechanical Ventilator 07/10/19 04:00 74 07/10/19 04:00 40 07/10/19 03:00 69 35 111/50 (70) 100 07/10/19 02:47 78 20 35 07/10/19 02:00 75 21 132/51 (78) 100 07/10/19 01:00 69 28 160/79 (106) 100 07/10/19 00:59 71 16 35 07/10/19 00:00 98.6 60 36 149/56 (87) 100 07/10/19 00:00 40 07/10/19 00:00 Endotracheal Tube Mechanical Ventilator Mechanical Ventilator Mechanical Ventilator 07/09/19 23:00 64 34 143/55 (84) 100 07/09/19 22:47 57 16 35 07/09/19 22:00 63 29 128/51 (76) 100 07/09/19 21:03 68 17 35 07/09/19 21:00 66 21 141/57 (85) 100 07/09/19 20:00 98.5 55 37 136/53 (80) 100 07/09/19 20:00 65 07/09/19 20:00 Endotracheal Tube Mechanical Ventilator Mechanical Ventilator Mechanical Ventilator 07/09/19 20:00 40 07/09/19 19:00 69 25 152/73 (99) 100 07/09/19 18:53 66 16 35 07/09/19 18:00 63 29 143/60 (87) 100 07/09/19 18:00 64 32 143/60 (87) 100 07/09/19 17:19 59 16 35 07/09/19 17:00 62 22 153/58 (89) 100 07/09/19 16:04 53 07/09/19 16:00 Endotracheal Tube Mechanical Ventilator Mechanical Ventilator Mechanical Ventilator 07/09/19 16:00 99.0 63 45 147/60 (89) 100 07/09/19 16:00 40 07/09/19 15:30 146/57 07/09/19 15:25 65 18 35 07/09/19 15:00 57 31 144/64 (90) 100 07/09/19 14:00 60 27 150/61 (90) 100 07/09/19 13:00 98.6 64 24 143/63 (89) 100 07/09/19 12:45 66 16 35 07/09/19 12:21 153/65 07/09/19 12:00 56 15 153/85 (107) 100 07/09/19 12:00 40 07/09/19 12:00 Endotracheal Tube Mechanical Ventilator Mechanical Ventilator Mechanical Ventilator 07/09/19 12:00 53 Height (Feet): 5 Height (Inches): 8.00 Weight (Pounds): 158 Objective General Appearance: cachetic, thin Lines, tubes and drains: peripheral HEENT: normocephalic, atraumatic Neck: non-tender, normal alignment Respiratory/Chest: chest wall non-tender, lungs clear Breasts: no masses Cardiovascular/Chest: normal peripheral pulses, normal rate Abdomen: normal bowel sounds, non tender, hyperactive bowel sounds Genitourinary/Rectal: normal genital exam Extremities: normal range of motion Skin Exam: normal pigmentation Laboratory Tests Test 07/10/19 04:30 07/10/19 08:31 White Blood Count 12.8 K/UL (4.8-10.8) #H Red Blood Count 3.39 M/UL (4.70-6.10) L Hemoglobin 9.5 G/DL (14.2-18.0) L Hematocrit 28.0 % (42.0-52.0) L Mean Corpuscular Volume 83 FL (80-99) Mean Corpuscular Hemoglobin 28.1 PG (27.0-31.0) Mean Corpuscular Hemoglobin Concent 34.1 G/DL (32.0-36.0) Red Cell Distribution Width 13.8 % (11.6-14.8) Platelet Count 152 K/UL (150-450) Mean Platelet Volume 7.8 FL (6.5-10.1) Neutrophils (%) (Auto) % (45.0-75.0) Lymphocytes (%) (Auto) % (20.0-45.0) Monocytes (%) (Auto) % (1.0-10.0) Eosinophils (%) (Auto) % (0.0-3.0) Basophils (%) (Auto) % (0.0-2.0) Sodium Level 152 MMOL/L (136-145) H Potassium Level 3.0 MMOL/L (3.5-5.1) L Chloride Level 117 MMOL/L (98-107) H Carbon Dioxide Level 28 MMOL/L (21-32) Anion Gap 8 mmol/L (5-15) Blood Urea Nitrogen 28 mg/dL (7-18) H Creatinine 1.1 MG/DL (0.55-1.30) Estimat Glomerular Filtration Rate mL/min (>60) Glucose Level 212 MG/DL (74-106) H Calcium Level 7.5 MG/DL (8.5-10.1) L Phosphorus Level 3.0 MG/DL (2.5-4.9) Magnesium Level 1.9 MG/DL (1.8-2.4) Total Bilirubin 0.3 MG/DL (0.2-1.0) Aspartate Amino Transf (AST/SGOT) 42 U/L (15-37) H Alanine Aminotransferase (ALT/SGPT) 197 U/L (12-78) H Alkaline Phosphatase 75 U/L (46-116) Total Protein 5.9 G/DL (6.4-8.2) L Albumin 2.2 G/DL (3.4-5.0) L Globulin 3.7 g/dL Albumin/Globulin Ratio 0.6 (1.0-2.7) L Arterial Blood pH 7.451 (7.350-7.450) Arterial Blood Partial Pressure CO2 41.6 mmHg (35.0-45.0) Arterial Blood Partial Pressure O2 95.8 mmHg (75.0-100.0) Arterial Blood HCO3 28.3 mmol/L (22.0-26.0) H Arterial Blood Oxygen Saturation 96.6 % (95-100) Arterial Blood Base Excess 4.0 (-2-2) H Phan Test Positive Current Medications Medications (Trade) Dose Ordered Sig/Genoveva Route PRN Reason Start Time Stop Time Status Last Admin Dose Admin Acetaminophen (Tylenol) 650 mg Q6H PRN ORAL Mild Pain/Temp > 100.5 07/05/19 15:00 08/03/19 14:59 07/05/19 21:22 Cefepime HCl 1 gm/ Dextrose 55 ml @ 110 mls/hr Q24H IVPB 07/05/19 21:00 07/11/19 20:59 07/09/19 20:44 Chlorhexidine Gluconate (Aolndra-Hex 2%) 1 applic DAILY@2000 TOPIC 07/05/19 20:00 08/04/19 19:59 07/09/19 20:43 Dextrose 1,000 ml @ 100 mls/hr Q10H ONCE IV 07/10/19 11:15 07/10/19 21:14 Hydralazine HCl (Apresoline) 10 mg Q4H PRN IV bp over 160 syst 07/06/19 12:30 08/05/19 12:29 Hydrocortisone (Solu-CORTEF) 100 mg EVERY 8 HOURS IV 07/05/19 14:30 08/04/19 14:29 07/10/19 06:01 Lorazepam (Ativan 2mg/ml 1ml) 2 mg Q4H PRN IV For Anxiety 07/05/19 15:15 07/12/19 11:14 Metronidazole 100 ml @ 100 mls/hr Q12HR IVPB 07/05/19 21:00 07/11/19 08:59 07/10/19 08:45 Morphine Sulfate (Morphine Sulfate) 4 mg Q4H PRN IVP For Severe Pain (6 to 10) 07/05/19 15:15 07/12/19 11:14 Nitroglycerin (Ntg) 1 patch Q24H TDERMAL 07/06/19 12:30 08/05/19 12:29 07/09/19 12:21 Norepinephrine Bitartrate 4 mg/ Dextrose 250 ml @ 0 mls/hr Q24H IV 07/06/19 15:30 08/04/19 15:29 Pantoprazole (Protonix) 40 mg Q12HR IV 07/05/19 21:00 08/04/19 11:14 07/10/19 08:45 Potassium Chloride 100 ml @ 50 mls/hr Q2H IVPB 07/10/19 12:00 07/10/19 15:59 Promethazine HCl/ Codeine (Phenergan with Codeine) 5 ml Q4H PRN ORAL For Cough 07/05/19 15:30 08/03/19 07:29 Mirian Page M.D. Jul 10, 2019 11:42
--- NOTE | 2019-07-10 11:45 | NUR ---
NURSE NOTES: Pt remains on CPAP 5 PS 8, tolerating well. Turned and repositioned patient, oral care done. Patient denies any pain, resting comfortably in bed, no signs of acute distress. Will continue to monitor.
--- NOTE | 2019-07-10 11:54 | NUR ---
[employer] MA[employer]ACHINE [employer] FEEDER NOTE АЛЕКСАНДР reviewed pt's AD stating '"choice not to prolong life". There is no POLST in the chart. АЛЕКСАНДР spoke w/ pt's /POMilo Tubbs. Arley is requesting family meeting w/ . The family meeting has been arranged w/ Dr. Lopez on the next day 07/11/2019 at 10am. Signed: 07/10/19 at 1159 by CLIF FOUNTAIN <Co-Signature Required>
[2019-07-10] MEDS: Nitroglycerin Patch 0.4mg TDERMAL SCH (11:58)
--- NOTE | 2019-07-10 13:09 | Internal Med Progress Note ---
Subjective Date of Service: Jul 10, 2019 Physician Name Shukri Glover Attending Physician Rayshawn Woods MD Current Medications Medications (Trade) Dose Ordered Sig/Genoveva Route PRN Reason Start Time Stop Time Status Last Admin Dose Admin Acetaminophen (Tylenol) 650 mg Q6H PRN ORAL Mild Pain/Temp > 100.5 07/05/19 15:00 08/03/19 14:59 07/05/19 21:22 Cefepime HCl 1 gm/ Dextrose 55 ml @ 110 mls/hr Q24H IVPB 07/05/19 21:00 07/11/19 20:59 07/09/19 20:44 Chlorhexidine Gluconate (Alondra-Hex 2%) 1 applic DAILY@2000 TOPIC 07/05/19 20:00 08/04/19 19:59 07/09/19 20:43 Dextrose 1,000 ml @ 100 mls/hr Q10H ONCE IV 07/10/19 11:15 07/10/19 21:14 07/10/19 12:00 Hydralazine HCl (Apresoline) 10 mg Q4H PRN IV bp over 160 syst 07/06/19 12:30 08/05/19 12:29 Hydrocortisone (Solu-CORTEF) 100 mg EVERY 8 HOURS IV 07/05/19 14:30 08/04/19 14:29 07/10/19 06:01 Lorazepam (Ativan 2mg/ml 1ml) 2 mg Q4H PRN IV For Anxiety 07/05/19 15:15 07/12/19 11:14 Metronidazole 100 ml @ 100 mls/hr Q12HR IVPB 07/05/19 21:00 07/11/19 08:59 07/10/19 08:45 Morphine Sulfate (Morphine Sulfate) 4 mg Q4H PRN IVP For Severe Pain (6 to 10) 07/05/19 15:15 07/12/19 11:14 Nitroglycerin (Ntg) 1 patch Q24H TDERMAL 07/06/19 12:30 08/05/19 12:29 07/10/19 11:58 Norepinephrine Bitartrate 4 mg/ Dextrose 250 ml @ 0 mls/hr Q24H IV 07/06/19 15:30 08/04/19 15:29 Pantoprazole (Protonix) 40 mg Q12HR IV 07/05/19 21:00 08/04/19 11:14 07/10/19 08:45 Potassium Chloride 100 ml @ 50 mls/hr Q2H IVPB 07/10/19 12:00 07/10/19 15:59 07/10/19 11:59 Promethazine HCl/ Codeine (Phenergan with Codeine) 5 ml Q4H PRN ORAL For Cough 07/05/19 15:30 08/03/19 07:29 Allergies: Coded Allergies: PENICILLINS (Verified Allergy, Unknown, 07/04/19) ROS Limited/Unobtainable: Yes Subjective 83 YO M admitted with dyspnea, now respiratory failure. Cover for Int Chris-Dr Woods. ICU. Intubated and sedated Objective Last Vital Signs Date Time Temp Pulse Resp B/P (MAP) Pulse Ox O2 Delivery O2 Flow Rate FiO2 07/10/19 13:00 74 27 154/74 (100) 100 07/10/19 12:00 35 07/10/19 12:00 98.5 07/10/19 12:00 Endotracheal Tube Mechanical Ventilator Mechanical Ventilator Mechanical Ventilator 07/05/19 09:00 12.0 Laboratory Tests Test 07/10/19 04:30 07/10/19 08:31 White Blood Count 12.8 K/UL (4.8-10.8) #H Red Blood Count 3.39 M/UL (4.70-6.10) L Hemoglobin 9.5 G/DL (14.2-18.0) L Hematocrit 28.0 % (42.0-52.0) L Mean Corpuscular Volume 83 FL (80-99) Mean Corpuscular Hemoglobin 28.1 PG (27.0-31.0) Mean Corpuscular Hemoglobin Concent 34.1 G/DL (32.0-36.0) Red Cell Distribution Width 13.8 % (11.6-14.8) Platelet Count 152 K/UL (150-450) Mean Platelet Volume 7.8 FL (6.5-10.1) Neutrophils (%) (Auto) % (45.0-75.0) Lymphocytes (%) (Auto) % (20.0-45.0) Monocytes (%) (Auto) % (1.0-10.0) Eosinophils (%) (Auto) % (0.0-3.0) Basophils (%) (Auto) % (0.0-2.0) Sodium Level 152 MMOL/L (136-145) H Potassium Level 3.0 MMOL/L (3.5-5.1) L Chloride Level 117 MMOL/L (98-107) H Carbon Dioxide Level 28 MMOL/L (21-32) Anion Gap 8 mmol/L (5-15) Blood Urea Nitrogen 28 mg/dL (7-18) H Creatinine 1.1 MG/DL (0.55-1.30) Estimat Glomerular Filtration Rate mL/min (>60) Glucose Level 212 MG/DL (74-106) H Calcium Level 7.5 MG/DL (8.5-10.1) L Phosphorus Level 3.0 MG/DL (2.5-4.9) Magnesium Level 1.9 MG/DL (1.8-2.4) Total Bilirubin 0.3 MG/DL (0.2-1.0) Aspartate Amino Transf (AST/SGOT) 42 U/L (15-37) H Alanine Aminotransferase (ALT/SGPT) 197 U/L (12-78) H Alkaline Phosphatase 75 U/L (46-116) Total Protein 5.9 G/DL (6.4-8.2) L Albumin 2.2 G/DL (3.4-5.0) L Globulin 3.7 g/dL Albumin/Globulin Ratio 0.6 (1.0-2.7) L Arterial Blood pH 7.451 (7.350-7.450) Arterial Blood Partial Pressure CO2 41.6 mmHg (35.0-45.0) Arterial Blood Partial Pressure O2 95.8 mmHg (75.0-100.0) Arterial Blood HCO3 28.3 mmol/L (22.0-26.0) H Arterial Blood Oxygen Saturation 96.6 % (95-100) Arterial Blood Base Excess 4.0 (-2-2) H Phan Test Positive Intake and Output 07/09/19 07/10/19 18:59 06:59 Intake Total 1467.50 ml 962.5 ml Output Total 750 ml 900 ml Balance 717.50 ml 62.5 ml Free Water 50 ml 40 ml IV Total 937.50 ml 202.5 ml Tube Feeding 480 ml 720 ml Output Urine Total 750 ml 900 ml Objective PHYSICAL EXAMINATION: GENERAL: The patient is a well-developed and well-nourished male, in moderate respiratory distress. HEENT: Eyes, pupils are equal and responsive to light and accommodation. Extraocular movements are intact. NECK: Supple without lymphadenopathy. CHEST: Mech Vent; Coarse breath sounds bilaterally with expiratory wheezes. Otherwise, without crackles. ABDOMINAL: Soft, nontender, and nondistended. Positive bowel sounds. No evidence of hepatosplenomegaly. Currently, no rebound or guarding noted. CARDIOVASCULAR: Tachycardic. Regular rhythm. S1 and S2 are normal without murmurs, rubs, or gallops. GENITOURINARY: Deferred. NEUROLOGICAL: Cranial nerves II to XII are grossly intact without focal deficits. EXTREMITIES: Negative for clubbing, cyanosis, or edema. Assessment/Plan Assessment/Plan ASSESSMENT: This is an 83-year-old male. 1. Dyspnea. 2. Respiratory distress. 3. Diabetes type 2. 4. Parkinson disease. 5. Hypercholesterolemia. 6. Dilated cardiomyopathy. 7. Dysphagia. 8. Benign prostatic hypertrophy. TREATMENT: 1. Dyspnea/respiratory distress. A Pulmonary consultation has been obtained with Dr. Kathryn Lopez. The patient is currently on mech vent. ABX=vanco, flagyl and cefepime intravenously. We will follow recommendations of Pulmonary. 2. Diabetes type 2. 3. Hypercholesterolemia. 4. Dilated cardiomyopathy. 5. Dysphagia. The patient is status post PEG placement. 6. Hypertensive heart disease. 7. Benign prostatic hypertrophy. 8. ID=Shukri Rodriguez MD Jul 10, 2019 13:09
--- NOTE | 2019-07-10 14:00 | NUR ---
NURSE NOTES: Turned and repositioned patient, oral care done. Patient denies any pain, resting comfortably in bed, no signs of acute distress. Last bag of Potassium replacement hung. Will continue to monitor.
--- NOTE | 2019-07-10 14:26 | NUR ---
NURSE NOTES: Dr Santos at bedside assessing pt. Updated him on pt's current condition.
--- NOTE | 2019-07-10 14:37 | Cardiac Electrophysiology PN ---
Assessment/Plan Assessment/Plan 1. Status post bradycardic arrest with heart rate in the 20s. Off any sinus node or AV destinee blocking agents. 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 The first two troponins on admission were negative. 5 follow up troponins were mildly elevated likely due to Code. No further critical hillary episode 2. NSTEMI. Due to arrest 3. Respiratory failure, currently intubated on the ventilator and broad- spectrum IV antibiotic Weaning in progress. D. Dimer positive. VQ scan pre code was low probability Extubation tomorrow 3. Hypotension. Improved with IV fluid 5. Dehydration, hyperatremia. Na still 152. Started on D5W 6. Dysphagia, status post PEG placement. 7. Diabetes. 8. Benign prostatic hypertrophy. DW RN Subjective Subjective Intubated on the Vent. RN at bedside. No bradycardia. Off pressors. Fio2 35%. Being weaned. Objective Last 24 Hour Vital Signs Date Time Temp Pulse Resp B/P (MAP) Pulse Ox O2 Delivery O2 Flow Rate FiO2 07/10/19 14:00 71 24 133/63 (86) 98 07/10/19 13:00 74 27 154/74 (100) 100 07/10/19 12:00 35 07/10/19 12:00 98.5 77 23 150/63 (92) 100 07/10/19 12:00 Endotracheal Tube Mechanical Ventilator Mechanical Ventilator Mechanical Ventilator 07/10/19 11:58 151/65 07/10/19 11:45 76 07/10/19 11:30 74 30 151/65 (93) 100 07/10/19 11:14 66 29 35 07/10/19 11:00 73 24 151/65 (93) 100 07/10/19 10:00 65 33 133/60 (84) 100 07/10/19 09:00 70 29 123/57 (79) 100 07/10/19 08:35 87 29 35 07/10/19 08:00 98.8 78 29 143/70 (94) 100 07/10/19 08:00 Endotracheal Tube Mechanical Ventilator Mechanical Ventilator Mechanical Ventilator 07/10/19 07:32 69 07/10/19 07:26 35 07/10/19 07:26 100 07/10/19 07:23 63 17 35 07/10/19 07:00 74 30 148/64 (92) 100 07/10/19 06:30 68 23 07/10/19 06:00 73 20 135/62 (86) 100 07/10/19 05:20 75 16 35 07/10/19 05:00 69 40 129/60 (83) 100 07/10/19 04:00 61 23 180/82 (114) 100 07/10/19 04:00 Endotracheal Tube Mechanical Ventilator Mechanical Ventilator Mechanical Ventilator 07/10/19 04:00 74 07/10/19 04:00 40 07/10/19 03:00 69 35 111/50 (70) 100 07/10/19 02:47 78 20 35 07/10/19 02:00 75 21 132/51 (78) 100 07/10/19 01:00 69 28 160/79 (106) 100 07/10/19 00:59 71 16 35 07/10/19 00:00 98.6 60 36 149/56 (87) 100 07/10/19 00:00 40 07/10/19 00:00 Endotracheal Tube Mechanical Ventilator Mechanical Ventilator Mechanical Ventilator 07/09/19 23:00 64 34 143/55 (84) 100 07/09/19 22:47 57 16 35 07/09/19 22:00 63 29 128/51 (76) 100 07/09/19 21:03 68 17 35 07/09/19 21:00 66 21 141/57 (85) 100 07/09/19 20:00 98.5 55 37 136/53 (80) 100 07/09/19 20:00 65 07/09/19 20:00 Endotracheal Tube Mechanical Ventilator Mechanical Ventilator Mechanical Ventilator 07/09/19 20:00 40 07/09/19 19:00 69 25 152/73 (99) 100 07/09/19 18:53 66 16 35 07/09/19 18:00 63 29 143/60 (87) 100 07/09/19 18:00 64 32 143/60 (87) 100 07/09/19 17:19 59 16 35 07/09/19 17:00 62 22 153/58 (89) 100 07/09/19 16:04 53 07/09/19 16:00 Endotracheal Tube Mechanical Ventilator Mechanical Ventilator Mechanical Ventilator 07/09/19 16:00 99.0 63 45 147/60 (89) 100 07/09/19 16:00 40 07/09/19 15:30 146/57 07/09/19 15:25 65 18 35 07/09/19 15:00 57 31 144/64 (90) 100 Intake and Output 07/09/19 07/10/19 19:00 07:00 Intake Total 1545.00 ml 855 ml Output Total 665 ml 920 ml Balance 880.00 ml -65 ml Free Water 50 ml 40 ml IV Total 985.00 ml 155 ml Tube Feeding 510 ml 660 ml Output Urine Total 665 ml 920 ml Laboratory Tests Test 07/10/19 04:30 07/10/19 08:31 White Blood Count 12.8 K/UL (4.8-10.8) #H Red Blood Count 3.39 M/UL (4.70-6.10) L Hemoglobin 9.5 G/DL (14.2-18.0) L Hematocrit 28.0 % (42.0-52.0) L Mean Corpuscular Volume 83 FL (80-99) Mean Corpuscular Hemoglobin 28.1 PG (27.0-31.0) Mean Corpuscular Hemoglobin Concent 34.1 G/DL (32.0-36.0) Red Cell Distribution Width 13.8 % (11.6-14.8) Platelet Count 152 K/UL (150-450) Mean Platelet Volume 7.8 FL (6.5-10.1) Neutrophils (%) (Auto) % (45.0-75.0) Lymphocytes (%) (Auto) % (20.0-45.0) Monocytes (%) (Auto) % (1.0-10.0) Eosinophils (%) (Auto) % (0.0-3.0) Basophils (%) (Auto) % (0.0-2.0) Sodium Level 152 MMOL/L (136-145) H Potassium Level 3.0 MMOL/L (3.5-5.1) L Chloride Level 117 MMOL/L (98-107) H Carbon Dioxide Level 28 MMOL/L (21-32) Anion Gap 8 mmol/L (5-15) Blood Urea Nitrogen 28 mg/dL (7-18) H Creatinine 1.1 MG/DL (0.55-1.30) Estimat Glomerular Filtration Rate mL/min (>60) Glucose Level 212 MG/DL (74-106) H Calcium Level 7.5 MG/DL (8.5-10.1) L Phosphorus Level 3.0 MG/DL (2.5-4.9) Magnesium Level 1.9 MG/DL (1.8-2.4) Total Bilirubin 0.3 MG/DL (0.2-1.0) Aspartate Amino Transf (AST/SGOT) 42 U/L (15-37) H Alanine Aminotransferase (ALT/SGPT) 197 U/L (12-78) H Alkaline Phosphatase 75 U/L (46-116) Total Protein 5.9 G/DL (6.4-8.2) L Albumin 2.2 G/DL (3.4-5.0) L Globulin 3.7 g/dL Albumin/Globulin Ratio 0.6 (1.0-2.7) L Arterial Blood pH 7.451 (7.350-7.450) Arterial Blood Partial Pressure CO2 41.6 mmHg (35.0-45.0) Arterial Blood Partial Pressure O2 95.8 mmHg (75.0-100.0) Arterial Blood HCO3 28.3 mmol/L (22.0-26.0) H Arterial Blood Oxygen Saturation 96.6 % (95-100) Arterial Blood Base Excess 4.0 (-2-2) H Phan Test Positive Objective HEAD AND NECK: He is orally intubated. Positive JVD. LUNGS: Decreased breath sounds. CARDIOVASCULAR: Tachycardic. ABDOMEN: Status post G-tube. EXTREMITIES: No pitting edema. Enio Santos MD Jul 10, 2019 14:37
--- NOTE | 2019-07-10 15:05 | NUR ---
NURSE NOTES:WOUND CARE FOLLOW-UP NOTES:Resolving pressure injury L buttocks. Dry,pink epithelial at base of wound surrounding non-blanching erythema without induration. R and L heels are both firm and blanchable. No new skin concerns noted. Wound Tx. are effective and continued as ordered. Pt has an APM/MIKE Mattress overlay. Al wound prevention protocols continued as care-planned.
--- NOTE | 2019-07-10 15:40 | NUR ---
NURSE NOTES: Pt observed becoming tired and tachypneic. Pt placed back on original ventilator settings at this time: AC 16, 650, 35% FiO2, 0 PEEP; observed O2Sat 100% on monitor. No distress noted.
--- NOTE | 2019-07-10 18:00 | NUR ---
NURSE NOTES: Pt's family at bedside. Updated them on pt's current condition. Pt cleaned and repositioned and oral care completed. No distress noted.
--- NOTE | 2019-07-10 19:08 | NUR ---
HAND-OFF: Report given to VIRGIL Lopez.
--- NOTE | 2019-07-10 19:22 | NUR ---
NURSE NOTES: SBAR from Lidia HERMAN. Patient is awake, alert and tracks movements with heads, non-verbal at this time. Patient is currently intubated ETT 7.5/24cm at lower lip line. AC 16, 650tv, 35% Fio2 and zero peep. Rale lung sounds at lower lung bases. GT feeds receiving Vital at 60 ml/hr. Abdomen non-tender, hypoactive Bowel sounds. Juan catheter noted, yellow urine. HR is 62 NSR on the monitor. BP is 158/82. Right IJ noted dyr and intact, patent receiving D5W at 100ml/hr. Labs noted. upper bilateral extremity strength 3/5. Bilateral soft wrist restraints noted, pulses are noted and skin is intact. Generalized edema noted throughout. Wounds noted, P200 noted. Safety measures are in place.
[2019-07-10] MEDS: Dyna-Hex 2% Top Sol 2oz TOPIC SCH (19:47)
--- NOTE | 2019-07-10 20:00 | NUR ---
NURSE NOTES: Temperature noted to be 100.6F (ax) Tylenol 650mg via GT given Cooling measures provided Repositioned Suctioned and oral care provided 30ml Feed residual 60ml GT tube flush H20 Awake and alert at this time.
[2019-07-10] MEDS: Cefepime HCl 1 GM in D5W 55 ML IVPB SCH (21:12)
--- NOTE | 2019-07-10 21:27 | NUR ---
NURSE NOTES: Patient is calm and collective at this time more compliant, no pulling on devises Discontinue restraints at this time. Kevin Wrist-Pulses noted, skin is intact, no swelling
--- NOTE | 2019-07-10 22:09 | NUR ---
NURSE NOTES: Repositioned Vitals are stable still with low grade fever. cooling measures remains in effect deep suctioning provided.
[2019-07-11] VITALS (23 sets, daily range): BP systolic 122–166; BP diastolic 48–91
--- NOTE | 2019-07-11 | NUR ---
NURSE NOTES: 1 X BM, Diarrhea, Soft, medium Temp: 98.3F 9 (ax) Oral care performed Deep/Oral suctioning performed Repositioned Awake at this time
--- NOTE | 2019-07-11 02:00 | NUR ---
NURSE NOTES: Patient noted to be trying to remove devices Bilateral soft wrist restraints initiated Repositioned 20G R wrist inserted DC'd right wrist 22G Central Line dressing changed.
--- NOTE | 2019-07-11 04:00 | NUR ---
NURSE NOTES: Bathed and repositioned Vitals remain stable afebrile, 98.8F oral care and suctioned blood drawn and sent to lab.
[2019-07-11 04:47] LABS: HEMATOCRIT 27.7 % (42.0-52.0); HEMOGLOBIN 9.3 G/DL (14.2-18.0); MEAN CORPUSCULAR VOLUME 83 FL (80-99); PLATELET COUNT 150 K/UL (150-450); RED BLOOD COUNT 3.35 M/UL (4.70-6.10); RED CELL DISTRIBUTION WIDTH 13.9 % (11.6-14.8); WHITE BLOOD COUNT 13.2 K/UL (4.8-10.8)
[2019-07-11 05:14] LABS: ANION GAP 6 mmol/L (5-15); BLOOD UREA NITROGEN 28 mg/dL (7-18); CALCIUM 7.8 MG/DL (8.5-10.1); CARBON DIOXIDE 32 MMOL/L (21-32); CHLORIDE 110 MMOL/L (98-107); POTASSIUM 3.1 MMOL/L (3.5-5.1); SODIUM 148 MMOL/L (136-145)
[2019-07-11] MEDS: Hydrocortisone 100mg Inj IV SCH ×3 (05:17→22:11)
--- NOTE | 2019-07-11 06:00 | NUR ---
NURSE NOTES: Repositioned Afebrile Vitals are stable NAD at this time.
--- NOTE | 2019-07-11 07:00 | NUR ---
RESPIRATORY NOTES: Received Patient on Vent settings RR 16, VT 650, FIO2 35%, PEEP +0. Patient intubated with 7.5 ETT at 23cm at the lip, secured with anchor fast. Suctioned small amount of white/faith/clear secretions through endotracheal tube. Patient awake but confused. Vent plugged into red outlet. Alarms are on and audible. Will continue to monitor throughout the day.
--- NOTE | 2019-07-11 07:16 | NUR ---
HAND-OFF: Report given to Sonali HERMAN
--- NOTE | 2019-07-11 07:22 | NUR ---
NURSE NOTES: LATE ENTRY: RECEIVED REPORT FROM BLAIRE Noriega PT IN BED, FATIGUED, EYES OPEN TO NAME AND SHAKING A/OX1. PUPILS SLUGGISH 3MM. VS: HR 70, BP 122/50, RR 20. GAG HYPOACTIVE. PT INTUBATED ETTUBE 7.5, 24CM AT LIP. VENT SETTINGS:AC 16, VT 650, 35%, SATING 100%. SECRETIONS MODERATE, THICK, WHITE, SMALL. GT PATENT, TUBE FEEDING VITAL A.F RUNNING AT 60ML/HR. GLUCERNA 1.5 RUNNING AT 55ML/HR. NO RESIDUALS. ABDOMEN ROUND, NON TENDER. BOWEL SOUNDS HYPOACTIVE. NO BM AT THIS TIME. SAUCEDO DRAINING LIGHT SHELDON URINE. IV SITE RT IJ, RT FA 20G, RT WRIST 22G. NO S/S OF PAIN, SOB. AX TEMP 98. SKIN- SEE ASSESSMENT.STANDARD PRECAUTIONS IN PLACE. BED LOCKED IN LOW POSITION, CALL LIGHT IN REACH.. WILL CONTINUE TO MONITOR PT.
--- NOTE | 2019-07-11 07:24 | NUR ---
RESPIRATORY NOTES: Weaning started at 723. Placed patient on PS +8 PEEP +0 FIO2 35%. Patient is weak with a NIF of -10. Spont RR 22, Spont VT 308, RSBI 48. Will continue to monitor.
--- NOTE | 2019-07-11 07:30 | NUR ---
NURSE NOTES: R.T weaning pt. PS 8. RR 14. PT OPENS EYES, ENCOURAGED TO TAKE BREATHES ON OWN. WILL CONTINUE TO MONITOR. ONE APNEIC EPISODE, BUT MAINTAINING RR12-20, SATING 100. HR 77, BP 122/50
--- NOTE | 2019-07-11 07:31 | Urology Progress Note ---
Assessment/Plan Assessment/Plan: 1. Left-sided hydronephrosis. 2. Proteinuria. 3. Hematuria. 4. Pyuria. 5. Urinary retention. 6. BPH history. 7. Rule out neurogenic bladder. 8. Mild acute kidney injury, improved. monitor clinically maintain nixon hand irrigate PRN abx as ordered f/u on blood cx CT A/P ordered, to be done once more medically stabilized monitor renal fxn Subjective Allergies: Coded Allergies: PENICILLINS (Verified Allergy, Unknown, 07/04/19) Subjective all noted, remains on vent Objective Last 24 Hour Vital Signs Date Time Temp Pulse Resp B/P (MAP) Pulse Ox O2 Delivery O2 Flow Rate FiO2 07/11/19 07:00 52 17 122/50 (74) 100 07/11/19 06:59 71 20 07/11/19 06:00 71 20 135/53 (80) 100 07/11/19 05:00 58 21 136/57 (83) 100 07/11/19 04:59 66 16 35 07/11/19 04:03 55 07/11/19 04:00 Endotracheal Tube Mechanical Ventilator Mechanical Ventilator Mechanical Ventilator 07/11/19 04:00 35 07/11/19 04:00 98.8 69 27 166/86 (112) 100 07/11/19 03:53 57 18 35 07/11/19 03:00 67 31 139/72 (94) 100 07/11/19 02:00 64 38 129/62 (84) 100 07/11/19 01:41 64 18 35 07/11/19 01:00 70 21 157/66 (96) 93 07/11/19 00:00 98.3 73 22 140/91 (107) 100 07/11/19 00:00 Endotracheal Tube Mechanical Ventilator Mechanical Ventilator Mechanical Ventilator 07/10/19 23:15 64 16 35 07/10/19 23:00 67 36 127/63 (84) 100 07/10/19 22:00 68 23 130/56 (80) 100 07/10/19 21:19 71 16 35 07/10/19 21:00 63 23 114/51 (72) 100 07/10/19 20:18 100.4 07/10/19 20:00 35 07/10/19 20:00 100.6 72 27 134/103 (113) 99 07/10/19 20:00 87 07/10/19 20:00 Endotracheal Tube Mechanical Ventilator Mechanical Ventilator Mechanical Ventilator 07/10/19 19:40 70 16 35 07/10/19 19:00 67 20 158/82 (107) 100 07/10/19 18:00 70 14 150/81 (104) 100 07/10/19 17:24 67 16 35 07/10/19 17:00 77 21 154/68 (96) 100 07/10/19 16:25 70 07/10/19 16:00 99.3 23 137/66 (89) 100 07/10/19 16:00 Endotracheal Tube Mechanical Ventilator Mechanical Ventilator Mechanical Ventilator 07/10/19 15:40 40 07/10/19 15:30 86 30 35 07/10/19 15:00 23 176/94 (121) 99 07/10/19 14:43 135/85 07/10/19 14:00 71 24 133/63 (86) 98 07/10/19 13:15 70 27 35 07/10/19 13:00 74 27 154/74 (100) 100 07/10/19 12:00 35 07/10/19 12:00 98.5 77 23 150/63 (92) 100 07/10/19 12:00 Endotracheal Tube Mechanical Ventilator Mechanical Ventilator Mechanical Ventilator 07/10/19 11:58 151/65 07/10/19 11:45 76 07/10/19 11:30 74 30 151/65 (93) 100 07/10/19 11:14 66 29 35 07/10/19 11:00 73 24 151/65 (93) 100 07/10/19 10:00 65 33 133/60 (84) 100 07/10/19 09:00 70 29 123/57 (79) 100 07/10/19 08:35 87 29 35 07/10/19 08:00 98.8 78 29 143/70 (94) 100 07/10/19 08:00 Endotracheal Tube Mechanical Ventilator Mechanical Ventilator Mechanical Ventilator 07/10/19 07:32 69 Intake and Output 07/10/19 07/11/19 19:00 07:00 Intake Total 1120 ml 1380 ml Output Total 905 ml 770 ml Balance 215 ml 610 ml Free Water 205 ml IV Total 1000 ml 455 ml Tube Feeding 120 ml 720 ml Output Urine Total 905 ml 770 ml # Bowel Movements 2 Microbiology Date/Time Source Procedure Growth Status 07/06/19 11:40 Blood Blood Culture - Preliminary NO GROWTH AFTER 4 DAYS Resulted 07/04/19 10:15 Sputum Gram Stain - Final Complete 07/04/19 10:15 Sputum Culture - Final Nicolle Albicans Usual Respiratory Valery Complete 07/04/19 01:25 Urine,Clean Catch Urine Culture - Final NO GROWTH AFTER 48 HOURS Complete 07/04/19 00:43 Rectum - Final NO CARBAPENEM-RESISTANT ENTEROBACTERI... Complete Current Medications Medications (Trade) Dose Ordered Sig/Genoveva Route PRN Reason Start Time Stop Time Status Last Admin Dose Admin Acetaminophen (Tylenol) 650 mg Q6H PRN ORAL Mild Pain/Temp > 100.5 07/05/19 15:00 08/03/19 14:59 07/10/19 19:48 Cefepime HCl 1 gm/ Dextrose 55 ml @ 110 mls/hr Q24H IVPB 07/05/19 21:00 07/11/19 20:59 07/10/19 21:12 Chlorhexidine Gluconate (Alondra-Hex 2%) 1 applic DAILY@2000 TOPIC 07/05/19 20:00 08/04/19 19:59 07/10/19 19:47 Hydralazine HCl (Apresoline) 10 mg Q4H PRN IV bp over 160 syst 07/06/19 12:30 08/05/19 12:29 Hydrocortisone (Solu-CORTEF) 100 mg EVERY 8 HOURS IV 07/05/19 14:30 08/04/19 14:29 07/11/19 05:17 Lorazepam (Ativan 2mg/ml 1ml) 2 mg Q4H PRN IV For Anxiety 07/05/19 15:15 07/12/19 11:14 Metronidazole 100 ml @ 100 mls/hr Q12HR IVPB 07/05/19 21:00 07/11/19 08:59 07/10/19 21:11 Morphine Sulfate (Morphine Sulfate) 4 mg Q4H PRN IVP For Severe Pain (6 to 10) 07/05/19 15:15 07/12/19 11:14 Nitroglycerin (Ntg) 1 patch Q24H TDERMAL 07/06/19 12:30 08/05/19 12:29 07/10/19 11:58 Norepinephrine Bitartrate 4 mg/ Dextrose 250 ml @ 0 mls/hr Q24H IV 07/06/19 15:30 08/04/19 15:29 Pantoprazole (Protonix) 40 mg Q12HR IV 07/05/19 21:00 08/04/19 11:14 07/10/19 21:11 Promethazine HCl/ Codeine (Phenergan with Codeine) 5 ml Q4H PRN ORAL For Cough 07/05/19 15:30 08/03/19 07:29 Laboratory Tests 07/10/19 08:31: Arterial Blood pH 7.451H, Arterial Blood Partial Pressure CO2 41.6, Arterial Blood Partial Pressure O2 95.8, Arterial Blood HCO3 28.3H, Arterial Blood Oxygen Saturation 96.6, Arterial Blood Base Excess 4.0H, Phan Test Positive 07/11/19 04:00: White Blood Count 13.2H, Red Blood Count 3.35L, Hemoglobin 9.3L, Hematocrit 27.7L, Mean Corpuscular Volume 83, Mean Corpuscular Hemoglobin 27.8, Mean Corpuscular Hemoglobin Concent 33.6, Red Cell Distribution Width 13.9, Platelet Count 150, Mean Platelet Volume 7.3, Neutrophils (%) (Auto) , Lymphocytes (%) ( Auto) , Monocytes (%) (Auto) , Eosinophils (%) (Auto) , Basophils (%) (Auto) , Neutrophils % (Manual) [Pending], Lymphocytes % (Manual) [Pending], Platelet Estimate [Pending], Platelet Morphology [Pending], Sodium Level 148H, Potassium Level 3.1L, Chloride Level 110H, Carbon Dioxide Level 32, Anion Gap 6, Blood Urea Nitrogen 28H, Creatinine 1.0, Estimat Glomerular Filtration Rate , Glucose Level 217H, Calcium Level 7.8L Height (Feet): 5 Height (Inches): 8.00 Weight (Pounds): 164 Objective exam stable nixon indwelling urine yellow/kristen, occasional debris Clayton Callejas MD Jul 11, 2019 07:31
--- NOTE | 2019-07-11 08:35 | NUR ---
NURSE NOTES: VOCATIONAL SERVICES SPECIALIST HERE TO DO CXR
[2019-07-11 08:51] LABS: ALANINE AMINOTRANSFERASE 156 U/L (12-78); ALBUMIN 2.3 G/DL (3.4-5.0); ALKALINE PHOSPHATASE 69 U/L (46-116); ASPARTATE AMINO TRANSFERASE 27 U/L (15-37); BILIRUBIN,DIRECT 0.1 MG/DL (0.0-0.3); BILIRUBIN,TOTAL 0.4 MG/DL (0.2-1.0); PHOSPHORUS 2.3 MG/DL (2.5-4.9)
--- NOTE | 2019-07-11 08:57 | NUR ---
NURSE NOTES: MD RICHARDS HERE TO SEE PT. INFORMED OF K 3.1, NA 148. ORDERS IN FORK REPLACEMENT.
--- NOTE | 2019-07-11 09:05 | NUR ---
RADIOLOGY DEPT., CHEST X-RAY DONE.-P.DYE
--- NOTE | 2019-07-11 09:29 | Nephrology Progress Note ---
Assessment/Plan Problem List: (1) CARA (acute kidney injury) (2) Cardiac arrest with successful resuscitation (3) Respiratory failure with hypoxia (4) Hydronephrosis Assessment patient have Cara due to Low BP and s/p arrest elevated liver enzymes for same reason others: 1. Acute hypoxemic respiratory failure. 2. Hypotension possible sepsis. 3. Diabetes type 2. 4. Parkinson disease. 5. Hypercholesterolemia. 6. EjFx 65% reported 7. Dysphagia. 8. Benign prostatic hypertrophy. Plan Plan: D5w one liter Nitro- Phos , K , Mag supplement as needed keep BP above 100 syst Pulm support monitor renal parameters discussed with RN VALENTINA: Moderate left hydronephrosis. Juan catheter. Echogenic right kidney. Suspected medical renal disease. Subjective ROS Limited/Unobtainable: Yes Objective Objective Last 24 Hour Vital Signs Date Time Temp Pulse Resp B/P (MAP) Pulse Ox O2 Delivery O2 Flow Rate FiO2 07/11/19 08:42 80 33 35 35 07/11/19 08:00 73 24 126/48 (74) 100 07/11/19 08:00 35 07/11/19 07:32 100 07/11/19 07:24 54 16 35 35 07/11/19 07:00 52 17 122/50 (74) 100 07/11/19 06:59 71 20 07/11/19 06:00 71 20 135/53 (80) 100 07/11/19 05:00 58 21 136/57 (83) 100 07/11/19 04:59 66 16 35 07/11/19 04:03 55 07/11/19 04:00 Endotracheal Tube Mechanical Ventilator Mechanical Ventilator Mechanical Ventilator 07/11/19 04:00 35 07/11/19 04:00 98.8 69 27 166/86 (112) 100 07/11/19 03:53 57 18 35 07/11/19 03:00 67 31 139/72 (94) 100 07/11/19 02:00 64 38 129/62 (84) 100 07/11/19 01:41 64 18 35 07/11/19 01:00 70 21 157/66 (96) 93 07/11/19 00:00 98.3 73 22 140/91 (107) 100 07/11/19 00:00 Endotracheal Tube Mechanical Ventilator Mechanical Ventilator Mechanical Ventilator 07/10/19 23:15 64 16 35 07/10/19 23:00 67 36 127/63 (84) 100 07/10/19 22:00 68 23 130/56 (80) 100 07/10/19 21:19 71 16 35 07/10/19 21:00 63 23 114/51 (72) 100 07/10/19 20:18 100.4 07/10/19 20:00 35 07/10/19 20:00 100.6 72 27 134/103 (113) 99 07/10/19 20:00 87 07/10/19 20:00 Endotracheal Tube Mechanical Ventilator Mechanical Ventilator Mechanical Ventilator 07/10/19 19:40 70 16 35 07/10/19 19:00 67 20 158/82 (107) 100 07/10/19 18:00 70 14 150/81 (104) 100 07/10/19 17:24 67 16 35 07/10/19 17:00 77 21 154/68 (96) 100 07/10/19 16:25 70 07/10/19 16:00 99.3 23 137/66 (89) 100 07/10/19 16:00 Endotracheal Tube Mechanical Ventilator Mechanical Ventilator Mechanical Ventilator 07/10/19 15:40 40 07/10/19 15:30 86 30 35 07/10/19 15:00 23 176/94 (121) 99 07/10/19 14:43 135/85 07/10/19 14:00 71 24 133/63 (86) 98 07/10/19 13:15 70 27 35 07/10/19 13:00 74 27 154/74 (100) 100 07/10/19 12:00 35 07/10/19 12:00 98.5 77 23 150/63 (92) 100 07/10/19 12:00 Endotracheal Tube Mechanical Ventilator Mechanical Ventilator Mechanical Ventilator 07/10/19 11:58 151/65 07/10/19 11:45 76 07/10/19 11:30 74 30 151/65 (93) 100 07/10/19 11:14 66 29 35 07/10/19 11:00 73 24 151/65 (93) 100 07/10/19 10:00 65 33 133/60 (84) 100 Intake and Output 07/10/19 07/11/19 19:00 07:00 Intake Total 1120 ml 1380 ml Output Total 905 ml 770 ml Balance 215 ml 610 ml Free Water 205 ml IV Total 1000 ml 455 ml Tube Feeding 120 ml 720 ml Output Urine Total 905 ml 770 ml # Bowel Movements 2 Laboratory Tests 07/11/19 04:00: White Blood Count 13.2H, Red Blood Count 3.35L, Hemoglobin 9.3L, Hematocrit 27.7L, Mean Corpuscular Volume 83, Mean Corpuscular Hemoglobin 27.8, Mean Corpuscular Hemoglobin Concent 33.6, Red Cell Distribution Width 13.9, Platelet Count 150, Mean Platelet Volume 7.3, Neutrophils (%) (Auto) , Lymphocytes (%) ( Auto) , Monocytes (%) (Auto) , Eosinophils (%) (Auto) , Basophils (%) (Auto) , Differential Total Cells Counted 100, Neutrophils % (Manual) 93H, Lymphocytes % (Manual) 4L, Monocytes % (Manual) 3, Eosinophils % (Manual) 0, Basophils % ( Manual) 0, Band Neutrophils 0, Platelet Estimate Adequate, Platelet Morphology Normal, Hypochromasia 2+, Anisocytosis 1+, Sodium Level 148H, Potassium Level 3.1L, Chloride Level 110H, Carbon Dioxide Level 32, Anion Gap 6, Blood Urea Nitrogen 28H, Creatinine 1.0, Estimat Glomerular Filtration Rate , Glucose Level 217H, Calcium Level 7.8L, Phosphorus Level 2.3L, Magnesium Level 1.7L, Total Bilirubin 0.4, Direct Bilirubin 0.1, Aspartate Amino Transf (AST/SGOT) 27 , Alanine Aminotransferase (ALT/SGPT) 156H, Alkaline Phosphatase 69, Total Protein 6.0L, Albumin 2.3L 07/11/19 08:29: Arterial Blood pH 7.497H, Arterial Blood Partial Pressure CO2 36.9, Arterial Blood Partial Pressure O2 127.1H, Arterial Blood HCO3 27.9H, Arterial Blood Oxygen Saturation 97.8, Arterial Blood Base Excess 4.5H, Phan Test Positive Height (Feet): 5 Height (Inches): 8.00 Weight (Pounds): 164 General Appearance: no apparent distress EENT: other - on vent Cardiovascular: normal rate Respiratory/Chest: decreased breath sounds Abdomen: distended Objective no change Oskar Mohr MD Jul 11, 2019 09:28
[2019-07-11] MEDS: Pantoprazole Inj IV SCH ×2 (09:49→20:43)
--- NOTE | 2019-07-11 10:25 | Cardiac Electrophysiology PN ---
Assessment/Plan Assessment/Plan 1. Status post bradycardic arrest with heart rate in the 20s. Off any sinus node or AV destinee blocking agents. 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 The first two troponins on admission were negative. 5 follow up troponins were mildly elevated likely due to Code. No further critical hillary episode 2. NSTEMI. Due to arrest 3. Respiratory failure, intubated on the ventilator and broad-spectrum IV antibiotic Weaning in progress. D. Dimer positive. VQ scan pre code was low probability Extubation today pending. 3. Hypotension. Improved with IV fluid 5. Dehydration and hyperatremia on D5W 6. Dysphagia, status post PEG placement. 7. Diabetes. 8. Benign prostatic hypertrophy. 9. Full code. But family meeting pending today DW RN Subjective Subjective Intubated on the Vent. RN at bedside. No bradycardia. Off pressors. Fio2 35%. Being weaned. Family meeting is planned today. Still full code Objective Last 24 Hour Vital Signs Date Time Temp Pulse Resp B/P (MAP) Pulse Ox O2 Delivery O2 Flow Rate FiO2 07/11/19 08:42 80 33 35 35 07/11/19 08:00 73 24 126/48 (74) 100 07/11/19 08:00 35 07/11/19 07:32 100 07/11/19 07:24 54 16 35 35 07/11/19 07:00 52 17 122/50 (74) 100 07/11/19 06:59 71 20 07/11/19 06:00 71 20 135/53 (80) 100 07/11/19 05:00 58 21 136/57 (83) 100 07/11/19 04:59 66 16 35 07/11/19 04:03 55 07/11/19 04:00 Endotracheal Tube Mechanical Ventilator Mechanical Ventilator Mechanical Ventilator 07/11/19 04:00 35 07/11/19 04:00 98.8 69 27 166/86 (112) 100 07/11/19 03:53 57 18 35 07/11/19 03:00 67 31 139/72 (94) 100 07/11/19 02:00 64 38 129/62 (84) 100 07/11/19 01:41 64 18 35 07/11/19 01:00 70 21 157/66 (96) 93 07/11/19 00:00 98.3 73 22 140/91 (107) 100 07/11/19 00:00 Endotracheal Tube Mechanical Ventilator Mechanical Ventilator Mechanical Ventilator 07/10/19 23:15 64 16 35 07/10/19 23:00 67 36 127/63 (84) 100 07/10/19 22:00 68 23 130/56 (80) 100 07/10/19 21:19 71 16 35 07/10/19 21:00 63 23 114/51 (72) 100 07/10/19 20:18 100.4 07/10/19 20:00 35 07/10/19 20:00 100.6 72 27 134/103 (113) 99 07/10/19 20:00 87 07/10/19 20:00 Endotracheal Tube Mechanical Ventilator Mechanical Ventilator Mechanical Ventilator 07/10/19 19:40 70 16 35 07/10/19 19:00 67 20 158/82 (107) 100 07/10/19 18:00 70 14 150/81 (104) 100 07/10/19 17:24 67 16 35 07/10/19 17:00 77 21 154/68 (96) 100 07/10/19 16:25 70 07/10/19 16:00 99.3 23 137/66 (89) 100 07/10/19 16:00 Endotracheal Tube Mechanical Ventilator Mechanical Ventilator Mechanical Ventilator 07/10/19 15:40 40 07/10/19 15:30 86 30 35 07/10/19 15:00 23 176/94 (121) 99 07/10/19 14:43 135/85 07/10/19 14:00 71 24 133/63 (86) 98 07/10/19 13:15 70 27 35 07/10/19 13:00 74 27 154/74 (100) 100 07/10/19 12:00 35 07/10/19 12:00 98.5 77 23 150/63 (92) 100 07/10/19 12:00 Endotracheal Tube Mechanical Ventilator Mechanical Ventilator Mechanical Ventilator 07/10/19 11:58 151/65 07/10/19 11:45 76 07/10/19 11:30 74 30 151/65 (93) 100 07/10/19 11:14 66 29 35 07/10/19 11:00 73 24 151/65 (93) 100 Intake and Output 07/10/19 07/11/19 19:00 07:00 Intake Total 1120 ml 1380 ml Output Total 905 ml 770 ml Balance 215 ml 610 ml Free Water 205 ml IV Total 1000 ml 455 ml Tube Feeding 120 ml 720 ml Output Urine Total 905 ml 770 ml # Bowel Movements 2 Laboratory Tests Test 07/11/19 04:00 07/11/19 08:29 White Blood Count 13.2 K/UL (4.8-10.8) H Red Blood Count 3.35 M/UL (4.70-6.10) L Hemoglobin 9.3 G/DL (14.2-18.0) L Hematocrit 27.7 % (42.0-52.0) L Mean Corpuscular Volume 83 FL (80-99) Mean Corpuscular Hemoglobin 27.8 PG (27.0-31.0) Mean Corpuscular Hemoglobin Concent 33.6 G/DL (32.0-36.0) Red Cell Distribution Width 13.9 % (11.6-14.8) Platelet Count 150 K/UL (150-450) Mean Platelet Volume 7.3 FL (6.5-10.1) Neutrophils (%) (Auto) % (45.0-75.0) Lymphocytes (%) (Auto) % (20.0-45.0) Monocytes (%) (Auto) % (1.0-10.0) Eosinophils (%) (Auto) % (0.0-3.0) Basophils (%) (Auto) % (0.0-2.0) Differential Total Cells Counted 100 Neutrophils % (Manual) 93 % (45-75) H Lymphocytes % (Manual) 4 % (20-45) L Monocytes % (Manual) 3 % (1-10) Eosinophils % (Manual) 0 % (0-3) Basophils % (Manual) 0 % (0-2) Band Neutrophils 0 % (0-8) Platelet Estimate Adequate Platelet Morphology Normal Hypochromasia 2+ Anisocytosis 1+ Sodium Level 148 MMOL/L (136-145) H Potassium Level 3.1 MMOL/L (3.5-5.1) L Chloride Level 110 MMOL/L (98-107) H Carbon Dioxide Level 32 MMOL/L (21-32) Anion Gap 6 mmol/L (5-15) Blood Urea Nitrogen 28 mg/dL (7-18) H Creatinine 1.0 MG/DL (0.55-1.30) Estimat Glomerular Filtration Rate mL/min (>60) Glucose Level 217 MG/DL (74-106) H Calcium Level 7.8 MG/DL (8.5-10.1) L Phosphorus Level 2.3 MG/DL (2.5-4.9) L Magnesium Level 1.7 MG/DL (1.8-2.4) L Total Bilirubin 0.4 MG/DL (0.2-1.0) Direct Bilirubin 0.1 MG/DL (0.0-0.3) Aspartate Amino Transf (AST/SGOT) 27 U/L (15-37) Alanine Aminotransferase (ALT/SGPT) 156 U/L (12-78) H Alkaline Phosphatase 69 U/L (46-116) Total Protein 6.0 G/DL (6.4-8.2) L Albumin 2.3 G/DL (3.4-5.0) L Arterial Blood pH 7.497 (7.350-7.450) Arterial Blood Partial Pressure CO2 36.9 mmHg (35.0-45.0) Arterial Blood Partial Pressure O2 127.1 mmHg (75.0-100.0) H Arterial Blood HCO3 27.9 mmol/L (22.0-26.0) H Arterial Blood Oxygen Saturation 97.8 % (95-100) Arterial Blood Base Excess 4.5 (-2-2) H Phan Test Positive Objective HEAD AND NECK: Orally intubated. Mild JVD. LUNGS: Decreased breath sounds. CARDIOVASCULAR: Tachycardic. ABDOMEN: Status post G-tube. EXTREMITIES: No pitting edema. Enio Santos MD Jul 11, 2019 10:25
--- NOTE | 2019-07-11 10:35 | NUR ---
RD ASSESSMENT & RECOMMENDATIONS SEE CARE ACTIVITY FOR COMPLETE ASSESSMENT DAILY ESTIMATED NEEDS: Needs based on Critical care, wound/ 67.7kg 22-28 kcals/kg 1497-4351 total kcals 1.25-2 g protein/kg 85-135 g total protein 25-30 mL/kg 3101-6559 total fluid mLs NUTRITION DIAGNOSIS: * Increased kcal/prot needs R/T wound healing as evidenced by pt admitted w/ resolving full thickness wound @ sacrum and non-blanching erythema @ BL heels. 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 (PO DIET RECOMMENDATIONS: BLENDER / COOK EVAL POST EXTUBATION (if PO still indicated)-> CCHO MED, LOW NA) ENTERAL NUTRITION RECOMMENDATIONS: Vital AF 1.2 @ 60ml/hr x 24 hrs to provide 1440ml, 1728kcal, 108g prot, 1167ml free water * WITH HEMODYNAMIC STABILITY: -> Initiate Vital AF 1.2 @ 10ml/hr x 6 hrs, advance 10ml q 4-6 hrs as tolerated to goal rate. -> HOB over 30 degrees/ H2O flush per MD WITHOUT HEMODYNAMIC STABILITY-> rec trophic feeding of Vital AF 1.2 @ 10ml/hr x 24 hrs ADDITIONAL RECOMMENDATIONS: * Per SNF: HT=67" [id number] (As of Jun 10, 2019) * Monitor hemodynamic stability- not on pressor support at this time * Monitor K closely, need for TF change * Add NISS: elev BGs, h/o DM, TF initiated + added D5 @100ml * Wound healing: add Vit C 250mg QD Continue Dipak BID * Consider DC IVF once TF @ goal: BNP elevated
--- NOTE | 2019-07-11 11:25 | Infectious Diseases Prog Note ---
Assessment/Plan Assessment/Plan Assessment: Shock, SP s/p cardiac arrest 07/05 Sepsis Probable UTI Acute hypoxic respiratory failure, intubated 07/05 Aspiration pneumonia vs pneumonitis Gram positive bacteremia- contaminant -07/06 Bcx NTD -07/05 CXR:Mild CHF -u/a wbc 5-10, nit neg, leuk +2; ucx Neg -Bcx 06/08 dipteriods -sp cx usual resp rupert -CXR: No acute process -influenza sc neg -v. duplex: no DVT -V/q scan:Findings are deemed low probability for pulmonary embolus Fever; low grade, recurrent Mild leukocytosis, increased CARA; improving Dm2 dysphagia s/p GT hx of PNA parkinson disease HTN bed bound NH resident Plan: -Continue empiric Cefepime #8 and Flagyl #7 -07/09 SP IV Vancomycin #5 -07/04 SP Levaquin x1 -f/u cx -Monitor CBC/CMP, temperatures -aspiration precautions -ICU/ETT/GT care -Cards, nephro f/u -Repeat Bcx x2, u/a w reflex -Cdiff if diarrhea Thank you for this consultation. Will continue to follow along with you. Discussed with RN. Subjective Allergies: Coded Allergies: PENICILLINS (Verified Allergy, Unknown, 07/04/19) Subjective Tm 100.4 remains in ICU intubated wbc mild increased off pressors Objective Vital Signs Last 24 Hour Vital Signs Date Time Temp Pulse Resp B/P (MAP) Pulse Ox O2 Delivery O2 Flow Rate FiO2 07/11/19 11:08 64 27 35 35 07/11/19 08:42 80 33 35 35 07/11/19 08:00 73 24 126/48 (74) 100 07/11/19 08:00 35 07/11/19 07:32 100 07/11/19 07:24 54 16 35 35 07/11/19 07:00 52 17 122/50 (74) 100 07/11/19 06:59 71 20 07/11/19 06:00 71 20 135/53 (80) 100 07/11/19 05:00 58 21 136/57 (83) 100 07/11/19 04:59 66 16 35 07/11/19 04:03 55 07/11/19 04:00 Endotracheal Tube Mechanical Ventilator Mechanical Ventilator Mechanical Ventilator 07/11/19 04:00 35 07/11/19 04:00 98.8 69 27 166/86 (112) 100 07/11/19 03:53 57 18 35 07/11/19 03:00 67 31 139/72 (94) 100 07/11/19 02:00 64 38 129/62 (84) 100 07/11/19 01:41 64 18 35 07/11/19 01:00 70 21 157/66 (96) 93 07/11/19 00:00 98.3 73 22 140/91 (107) 100 07/11/19 00:00 Endotracheal Tube Mechanical Ventilator Mechanical Ventilator Mechanical Ventilator 07/10/19 23:15 64 16 35 07/10/19 23:00 67 36 127/63 (84) 100 07/10/19 22:00 68 23 130/56 (80) 100 07/10/19 21:19 71 16 35 07/10/19 21:00 63 23 114/51 (72) 100 07/10/19 20:18 100.4 07/10/19 20:00 35 07/10/19 20:00 100.6 72 27 134/103 (113) 99 07/10/19 20:00 87 07/10/19 20:00 Endotracheal Tube Mechanical Ventilator Mechanical Ventilator Mechanical Ventilator 07/10/19 19:40 70 16 35 07/10/19 19:00 67 20 158/82 (107) 100 07/10/19 18:00 70 14 150/81 (104) 100 07/10/19 17:24 67 16 35 07/10/19 17:00 77 21 154/68 (96) 100 07/10/19 16:25 70 07/10/19 16:00 99.3 23 137/66 (89) 100 07/10/19 16:00 Endotracheal Tube Mechanical Ventilator Mechanical Ventilator Mechanical Ventilator 07/10/19 15:40 40 07/10/19 15:30 86 30 35 07/10/19 15:00 23 176/94 (121) 99 07/10/19 14:43 135/85 07/10/19 14:00 71 24 133/63 (86) 98 07/10/19 13:15 70 27 35 07/10/19 13:00 74 27 154/74 (100) 100 07/10/19 12:00 35 07/10/19 12:00 98.5 77 23 150/63 (92) 100 07/10/19 12:00 Endotracheal Tube Mechanical Ventilator Mechanical Ventilator Mechanical Ventilator 07/10/19 11:58 151/65 07/10/19 11:45 76 07/10/19 11:30 74 30 151/65 (93) 100 Height (Feet): 5 Height (Inches): 8.00 Weight (Pounds): 164 Objective General Appearance: cachetic, thin Lines, tubes and drains: peripheral HEENT: normocephalic, atraumatic Neck: non-tender, normal alignment Respiratory/Chest: chest wall non-tender, lungs clear Breasts: no masses Cardiovascular/Chest: normal peripheral pulses, normal rate Abdomen: normal bowel sounds, non tender, hyperactive bowel sounds Genitourinary/Rectal: normal genital exam Extremities: normal range of motion Skin Exam: normal pigmentation Laboratory Tests Test 07/11/19 04:00 07/11/19 08:29 White Blood Count 13.2 K/UL (4.8-10.8) H Red Blood Count 3.35 M/UL (4.70-6.10) L Hemoglobin 9.3 G/DL (14.2-18.0) L Hematocrit 27.7 % (42.0-52.0) L Mean Corpuscular Volume 83 FL (80-99) Mean Corpuscular Hemoglobin 27.8 PG (27.0-31.0) Mean Corpuscular Hemoglobin Concent 33.6 G/DL (32.0-36.0) Red Cell Distribution Width 13.9 % (11.6-14.8) Platelet Count 150 K/UL (150-450) Mean Platelet Volume 7.3 FL (6.5-10.1) Neutrophils (%) (Auto) % (45.0-75.0) Lymphocytes (%) (Auto) % (20.0-45.0) Monocytes (%) (Auto) % (1.0-10.0) Eosinophils (%) (Auto) % (0.0-3.0) Basophils (%) (Auto) % (0.0-2.0) Differential Total Cells Counted 100 Neutrophils % (Manual) 93 % (45-75) H Lymphocytes % (Manual) 4 % (20-45) L Monocytes % (Manual) 3 % (1-10) Eosinophils % (Manual) 0 % (0-3) Basophils % (Manual) 0 % (0-2) Band Neutrophils 0 % (0-8) Platelet Estimate Adequate Platelet Morphology Normal Hypochromasia 2+ Anisocytosis 1+ Sodium Level 148 MMOL/L (136-145) H Potassium Level 3.1 MMOL/L (3.5-5.1) L Chloride Level 110 MMOL/L (98-107) H Carbon Dioxide Level 32 MMOL/L (21-32) Anion Gap 6 mmol/L (5-15) Blood Urea Nitrogen 28 mg/dL (7-18) H Creatinine 1.0 MG/DL (0.55-1.30) Estimat Glomerular Filtration Rate mL/min (>60) Glucose Level 217 MG/DL (74-106) H Calcium Level 7.8 MG/DL (8.5-10.1) L Phosphorus Level 2.3 MG/DL (2.5-4.9) L Magnesium Level 1.7 MG/DL (1.8-2.4) L Total Bilirubin 0.4 MG/DL (0.2-1.0) Direct Bilirubin 0.1 MG/DL (0.0-0.3) Aspartate Amino Transf (AST/SGOT) 27 U/L (15-37) Alanine Aminotransferase (ALT/SGPT) 156 U/L (12-78) H Alkaline Phosphatase 69 U/L (46-116) Total Protein 6.0 G/DL (6.4-8.2) L Albumin 2.3 G/DL (3.4-5.0) L Arterial Blood pH 7.497 (7.350-7.450) Arterial Blood Partial Pressure CO2 36.9 mmHg (35.0-45.0) Arterial Blood Partial Pressure O2 127.1 mmHg (75.0-100.0) H Arterial Blood HCO3 27.9 mmol/L (22.0-26.0) H Arterial Blood Oxygen Saturation 97.8 % (95-100) Arterial Blood Base Excess 4.5 (-2-2) H Phan Test Positive Current Medications Medications (Trade) Dose Ordered Sig/Genoveva Route PRN Reason Start Time Stop Time Status Last Admin Dose Admin Acetaminophen (Tylenol) 650 mg Q6H PRN ORAL Mild Pain/Temp > 100.5 07/05/19 15:00 08/03/19 14:59 07/10/19 19:48 Cefepime HCl 1 gm/ Dextrose 55 ml @ 110 mls/hr Q24H IVPB 07/05/19 21:00 07/16/19 20:59 07/10/19 21:12 Chlorhexidine Gluconate (Alondra-Hex 2%) 1 applic DAILY@2000 TOPIC 07/05/19 20:00 08/04/19 19:59 07/10/19 19:47 Dextrose 1,000 ml @ 100 mls/hr Q10H ONCE IV 07/11/19 09:30 07/11/19 19:29 07/11/19 09:54 Hydralazine HCl (Apresoline) 10 mg Q4H PRN IV bp over 160 syst 07/06/19 12:30 08/05/19 12:29 Hydrocortisone (Solu-CORTEF) 100 mg EVERY 8 HOURS IV 07/05/19 14:30 08/04/19 14:29 07/11/19 05:17 Lorazepam (Ativan 2mg/ml 1ml) 2 mg Q4H PRN IV For Anxiety 07/05/19 15:15 07/12/19 11:14 Magnesium Sulfate 100 ml @ 100 mls/hr Q1H IVPB 07/11/19 09:30 07/11/19 11:29 07/11/19 09:50 Metronidazole 100 ml @ 100 mls/hr Q12HR IVPB 07/11/19 21:00 07/18/19 20:59 Morphine Sulfate (Morphine Sulfate) 4 mg Q4H PRN IVP For Severe Pain (6 to 10) 07/05/19 15:15 07/12/19 11:14 Nitroglycerin (Ntg) 1 patch Q24H TDERMAL 07/06/19 12:30 08/05/19 12:29 07/10/19 11:58 Norepinephrine Bitartrate 4 mg/ Dextrose 250 ml @ 0 mls/hr Q24H IV 07/06/19 15:30 08/04/19 15:29 Pantoprazole (Protonix) 40 mg Q12HR IV 07/05/19 21:00 08/04/19 11:14 07/11/19 09:49 Potassium Chloride 100 ml @ 50 mls/hr Q2H IVPB 07/11/19 09:00 07/11/19 12:59 07/11/19 09:49 Promethazine HCl/ Codeine (Phenergan with Codeine) 5 ml Q4H PRN ORAL For Cough 07/05/19 15:30 08/03/19 07:29 Mirian Page M.D. Jul 11, 2019 11:25
--- NOTE | 2019-07-11 11:53 | Pulmonolgy Critical Care Note ---
Critical Care - Asmt/Plan Problems: (1) Cardiac arrest with successful resuscitation (2) Respiratory failure with hypoxia (3) Hypotension (4) Parkinson disease (5) Feeding by G-tube (6) Diabetes mellitus (7) Hydronephrosis Respiratory: monitor respiratory rate, adjust FIO2, CXR Cardiac: continue to monitor HR/BP Renal: F/U I&O, keep IV fluid, check electrolytes Infectious Disease: check cultures, continue antibiotics Gastrointestinal: continue feedings/current rate Endocrine: monitor blood sugar Hematologic: monitor H/H, transfuse if hgb<8.5 Neurologic: PRN Morphine, keep patient comfortable Affect: PRN ativan Disposition: keep in ICU Time Spent (Minutes): 40 Notes Reviewed: duct layer helper Discussed with: nurses, consultants, human services case managertelevision station manager - Objective Last 24 Hour Vital Signs Date Time Temp Pulse Resp B/P (MAP) Pulse Ox O2 Delivery O2 Flow Rate FiO2 07/11/19 11:08 64 27 35 35 07/11/19 11:00 64 25 146/60 (88) 100 07/11/19 10:00 57 25 143/64 (90) 100 07/11/19 08:42 80 33 35 35 07/11/19 08:00 73 24 126/48 (74) 100 07/11/19 08:00 35 07/11/19 08:00 Endotracheal Tube Mechanical Ventilator Mechanical Ventilator Mechanical Ventilator 07/11/19 07:32 100 07/11/19 07:24 54 16 35 35 07/11/19 07:00 52 17 122/50 (74) 100 07/11/19 06:59 71 20 07/11/19 06:00 71 20 135/53 (80) 100 07/11/19 05:00 58 21 136/57 (83) 100 07/11/19 04:59 66 16 35 07/11/19 04:03 55 07/11/19 04:00 Endotracheal Tube Mechanical Ventilator Mechanical Ventilator Mechanical Ventilator 07/11/19 04:00 35 07/11/19 04:00 98.8 69 27 166/86 (112) 100 07/11/19 03:53 57 18 35 07/11/19 03:00 67 31 139/72 (94) 100 07/11/19 02:00 64 38 129/62 (84) 100 07/11/19 01:41 64 18 35 07/11/19 01:00 70 21 157/66 (96) 93 07/11/19 00:00 98.3 73 22 140/91 (107) 100 07/11/19 00:00 Endotracheal Tube Mechanical Ventilator Mechanical Ventilator Mechanical Ventilator 07/10/19 23:15 64 16 35 07/10/19 23:00 67 36 127/63 (84) 100 07/10/19 22:00 68 23 130/56 (80) 100 07/10/19 21:19 71 16 35 07/10/19 21:00 63 23 114/51 (72) 100 07/10/19 20:18 100.4 07/10/19 20:00 35 07/10/19 20:00 100.6 72 27 134/103 (113) 99 07/10/19 20:00 87 07/10/19 20:00 Endotracheal Tube Mechanical Ventilator Mechanical Ventilator Mechanical Ventilator 07/10/19 19:40 70 16 35 07/10/19 19:00 67 20 158/82 (107) 100 07/10/19 18:00 70 14 150/81 (104) 100 07/10/19 17:24 67 16 35 07/10/19 17:00 77 21 154/68 (96) 100 07/10/19 16:25 70 07/10/19 16:00 99.3 23 137/66 (89) 100 07/10/19 16:00 Endotracheal Tube Mechanical Ventilator Mechanical Ventilator Mechanical Ventilator 07/10/19 15:40 40 07/10/19 15:30 86 30 35 07/10/19 15:00 23 176/94 (121) 99 07/10/19 14:43 135/85 07/10/19 14:00 71 24 133/63 (86) 98 07/10/19 13:15 70 27 35 07/10/19 13:00 74 27 154/74 (100) 100 07/10/19 12:00 35 07/10/19 12:00 98.5 77 23 150/63 (92) 100 07/10/19 12:00 Endotracheal Tube Mechanical Ventilator Mechanical Ventilator Mechanical Ventilator 07/10/19 11:58 151/65 Status: awake Condition: improving Neck: full ROM Lungs: clear Heart: HR/BP stable Abdomen: soft, non-tender Extremities: no C/C/E Critical Care - Subjective ROS Limited/Unobtainable: Yes Condition: critical EKG Rhythm: Sinus Rhythm FI02: 35 Vent Support Breath Rate: 16 Vent Support Mode: CPAP Vent Tidal Volume: 650 Sputum Amount: Small PEEP: 0.0 PIP: 4 Tube Feeding Amount: 60 I&O: Intake and Output 07/10/19 07/11/19 19:00 07:00 Intake Total 1120 ml 1380 ml Output Total 905 ml 770 ml Balance 215 ml 610 ml Free Water 205 ml IV Total 1000 ml 455 ml Tube Feeding 120 ml 720 ml Output Urine Total 905 ml 770 ml # Bowel Movements 2 CXR: ET in good position, no change ET-Tube: 7.5 ET Position: 24 Labs: Laboratory Tests Test 07/11/19 04:00 07/11/19 08:29 White Blood Count 13.2 K/UL (4.8-10.8) H Red Blood Count 3.35 M/UL (4.70-6.10) L Hemoglobin 9.3 G/DL (14.2-18.0) L Hematocrit 27.7 % (42.0-52.0) L Mean Corpuscular Volume 83 FL (80-99) Mean Corpuscular Hemoglobin 27.8 PG (27.0-31.0) Mean Corpuscular Hemoglobin Concent 33.6 G/DL (32.0-36.0) Red Cell Distribution Width 13.9 % (11.6-14.8) Platelet Count 150 K/UL (150-450) Mean Platelet Volume 7.3 FL (6.5-10.1) Neutrophils (%) (Auto) % (45.0-75.0) Lymphocytes (%) (Auto) % (20.0-45.0) Monocytes (%) (Auto) % (1.0-10.0) Eosinophils (%) (Auto) % (0.0-3.0) Basophils (%) (Auto) % (0.0-2.0) Differential Total Cells Counted 100 Neutrophils % (Manual) 93 % (45-75) H Lymphocytes % (Manual) 4 % (20-45) L Monocytes % (Manual) 3 % (1-10) Eosinophils % (Manual) 0 % (0-3) Basophils % (Manual) 0 % (0-2) Band Neutrophils 0 % (0-8) Platelet Estimate Adequate Platelet Morphology Normal Hypochromasia 2+ Anisocytosis 1+ Sodium Level 148 MMOL/L (136-145) H Potassium Level 3.1 MMOL/L (3.5-5.1) L Chloride Level 110 MMOL/L (98-107) H Carbon Dioxide Level 32 MMOL/L (21-32) Anion Gap 6 mmol/L (5-15) Blood Urea Nitrogen 28 mg/dL (7-18) H Creatinine 1.0 MG/DL (0.55-1.30) Estimat Glomerular Filtration Rate mL/min (>60) Glucose Level 217 MG/DL (74-106) H Calcium Level 7.8 MG/DL (8.5-10.1) L Phosphorus Level 2.3 MG/DL (2.5-4.9) L Magnesium Level 1.7 MG/DL (1.8-2.4) L Total Bilirubin 0.4 MG/DL (0.2-1.0) Direct Bilirubin 0.1 MG/DL (0.0-0.3) Aspartate Amino Transf (AST/SGOT) 27 U/L (15-37) Alanine Aminotransferase (ALT/SGPT) 156 U/L (12-78) H Alkaline Phosphatase 69 U/L (46-116) Total Protein 6.0 G/DL (6.4-8.2) L Albumin 2.3 G/DL (3.4-5.0) L Arterial Blood pH 7.497 (7.350-7.450) Arterial Blood Partial Pressure CO2 36.9 mmHg (35.0-45.0) Arterial Blood Partial Pressure O2 127.1 mmHg (75.0-100.0) H Arterial Blood HCO3 27.9 mmol/L (22.0-26.0) H Arterial Blood Oxygen Saturation 97.8 % (95-100) Arterial Blood Base Excess 4.5 (-2-2) H Phan Test Positive Kathryn Lopez MD Jul 11, 2019 11:53
[2019-07-11] MEDS: Nitroglycerin Patch 0.4mg TDERMAL SCH (12:13)
--- NOTE | 2019-07-11 12:16 | NUR ---
DIAZO TECHNICIAN NOTE PT's family met w/ Dr. Lopez and discussed the prognosis. Signed: 07/11/19 at 1217 by CLIF FOUNTAIN <Co-Signature Required>
--- NOTE | 2019-07-11 12:30 | NUR ---
RESPIRATORY NOTES: Successfully extubated Mr. Hernandez at 1230. Placed patient on Cool Aerosol 10LPM 40% FIO2 to sooth throat. Will continue to closely monitor.
--- NOTE | 2019-07-11 12:33 | NUR ---
NURSE NOTES: R.T HERE TO EXTUBATE PT. HR 62, BP 158/54, RR 26, SATING 100% COOL AEROSOL 10L. HIGH FOWLERS. WILL MONITOR CLOSELY.
--- NOTE | 2019-07-11 13:05 | NUR ---
NURSE NOTES: SPOKE WITH MD GUEVARA TO RECOMMEND FOLLOW UP ABG. RECEIVED ORDER FOR ABG IN ONE HOUR. PLACED ORDER FOR 1400.
--- NOTE | 2019-07-11 13:59 | Diagnostic Imaging Report ---
Indication: Dyspnea Comparison: 07/10/2019 A single view chest radiograph was obtained. Findings: I lateral pleural effusions again suspected. Mild vascular congestion may be present. Heart is enlarged but stable. Tubes and lines are stable. IMPRESSION: No change from the prior day
--- NOTE | 2019-07-11 14:00 | NUR ---
NURSE NOTES: LATE ENTRY: PT IN BED, FATIGUED, EYES OPEN TO NAME. VS: HR 58, BP 137/58, RR 31. GAG HYPOACTIVE. PT ON 2LNC, SATING 100%. NOTED RHONCHI, SECRETIONS SMALL, THICK, WHITE. GT PATENT, TUBE FEEDING VITAL A.F RUNNING AT 60ML/HR. GLUCERNA 1.5 RUNNING AT 55ML/HR. NO RESIDUALS. ABDOMEN ROUND, NON TENDER. BOWEL SOUNDS HYPOACTIVE. IV SITE RT IJ, RT FA 20G, RT WRIST 22G, D5W AT 100ML/HR. NO S/S OF PAIN, SOB. STANDARD PRECAUTIONS IN PLACE. BED LOCKED IN LOW POSITION, CALL LIGHT IN REACH. WILL CONTINUE TO MONITOR PT.
--- NOTE | 2019-07-11 16:58 | Internal Med Progress Note ---
Subjective Date of Service: Jul 11, 2019 Physician Name Shukri Glover Attending Physician Rayshawn Woods MD Current Medications Medications (Trade) Dose Ordered Sig/Genoveva Route PRN Reason Start Time Stop Time Status Last Admin Dose Admin Acetaminophen (Tylenol) 650 mg Q6H PRN ORAL Mild Pain/Temp > 100.5 07/05/19 15:00 08/03/19 14:59 07/10/19 19:48 Cefepime HCl 1 gm/ Dextrose 55 ml @ 110 mls/hr Q24H IVPB 07/05/19 21:00 07/16/19 20:59 07/10/19 21:12 Chlorhexidine Gluconate (Alondra-Hex 2%) 1 applic DAILY@2000 TOPIC 07/05/19 20:00 08/04/19 19:59 07/10/19 19:47 Dextrose 1,000 ml @ 100 mls/hr Q10H ONCE IV 07/11/19 09:30 07/11/19 19:29 07/11/19 09:54 Hydralazine HCl (Apresoline) 10 mg Q4H PRN IV bp over 160 syst 07/06/19 12:30 08/05/19 12:29 Hydrocortisone (Solu-CORTEF) 100 mg EVERY 8 HOURS IV 07/05/19 14:30 08/04/19 14:29 07/11/19 14:39 Lorazepam (Ativan 2mg/ml 1ml) 2 mg Q4H PRN IV For Anxiety 07/05/19 15:15 07/12/19 11:14 Metronidazole 100 ml @ 100 mls/hr Q12HR IVPB 07/11/19 21:00 07/18/19 20:59 Morphine Sulfate (Morphine Sulfate) 4 mg Q4H PRN IVP For Severe Pain (6 to 10) 07/05/19 15:15 07/12/19 11:14 Nitroglycerin (Ntg) 1 patch Q24H TDERMAL 07/06/19 12:30 08/05/19 12:29 07/11/19 12:13 Norepinephrine Bitartrate 4 mg/ Dextrose 250 ml @ 0 mls/hr Q24H IV 07/06/19 15:30 08/04/19 15:29 Pantoprazole (Protonix) 40 mg Q12HR IV 07/05/19 21:00 08/04/19 11:14 07/11/19 09:49 Promethazine HCl/ Codeine (Phenergan with Codeine) 5 ml Q4H PRN ORAL For Cough 07/05/19 15:30 08/03/19 07:29 Allergies: Coded Allergies: PENICILLINS (Verified Allergy, Unknown, 07/04/19) ROS Limited/Unobtainable: Yes Subjective 83 YO M admitted with dyspnea, now respiratory failure. Cover for Int Med-Dr Woods. ICU. Extubated 07/11/19 Objective Last Vital Signs Date Time Temp Pulse Resp B/P (MAP) Pulse Ox O2 Delivery O2 Flow Rate FiO2 07/11/19 16:00 63 07/11/19 16:00 98.4 24 145/60 (88) 100 07/11/19 16:00 Endotracheal Tube 4.0 Mechanical Ventilator Mechanical Ventilator Mechanical Ventilator Nasal Cannula 07/11/19 12:40 40 Laboratory Tests Test 07/11/19 04:00 07/11/19 08:29 07/11/19 13:41 White Blood Count 13.2 K/UL (4.8-10.8) H Red Blood Count 3.35 M/UL (4.70-6.10) L Hemoglobin 9.3 G/DL (14.2-18.0) L Hematocrit 27.7 % (42.0-52.0) L Mean Corpuscular Volume 83 FL (80-99) Mean Corpuscular Hemoglobin 27.8 PG (27.0-31.0) Mean Corpuscular Hemoglobin Concent 33.6 G/DL (32.0-36.0) Red Cell Distribution Width 13.9 % (11.6-14.8) Platelet Count 150 K/UL (150-450) Mean Platelet Volume 7.3 FL (6.5-10.1) Neutrophils (%) (Auto) % (45.0-75.0) Lymphocytes (%) (Auto) % (20.0-45.0) Monocytes (%) (Auto) % (1.0-10.0) Eosinophils (%) (Auto) % (0.0-3.0) Basophils (%) (Auto) % (0.0-2.0) Differential Total Cells Counted 100 Neutrophils % (Manual) 93 % (45-75) H Lymphocytes % (Manual) 4 % (20-45) L Monocytes % (Manual) 3 % (1-10) Eosinophils % (Manual) 0 % (0-3) Basophils % (Manual) 0 % (0-2) Band Neutrophils 0 % (0-8) Platelet Estimate Adequate Platelet Morphology Normal Hypochromasia 2+ Anisocytosis 1+ Sodium Level 148 MMOL/L (136-145) H Potassium Level 3.1 MMOL/L (3.5-5.1) L Chloride Level 110 MMOL/L (98-107) H Carbon Dioxide Level 32 MMOL/L (21-32) Anion Gap 6 mmol/L (5-15) Blood Urea Nitrogen 28 mg/dL (7-18) H Creatinine 1.0 MG/DL (0.55-1.30) Estimat Glomerular Filtration Rate mL/min (>60) Glucose Level 217 MG/DL (74-106) H Calcium Level 7.8 MG/DL (8.5-10.1) L Phosphorus Level 2.3 MG/DL (2.5-4.9) L Magnesium Level 1.7 MG/DL (1.8-2.4) L Total Bilirubin 0.4 MG/DL (0.2-1.0) Direct Bilirubin 0.1 MG/DL (0.0-0.3) Aspartate Amino Transf (AST/SGOT) 27 U/L (15-37) Alanine Aminotransferase (ALT/SGPT) 156 U/L (12-78) H Alkaline Phosphatase 69 U/L (46-116) Total Protein 6.0 G/DL (6.4-8.2) L Albumin 2.3 G/DL (3.4-5.0) L Arterial Blood pH 7.497 (7.350-7.450) 7.415 (7.350-7.450) Arterial Blood Partial Pressure CO2 36.9 mmHg (35.0-45.0) 43.4 mmHg (35.0-45.0) Arterial Blood Partial Pressure O2 127.1 mmHg (75.0-100.0) H 129.0 mmHg (75.0-100.0) H Arterial Blood HCO3 27.9 mmol/L (22.0-26.0) H 27.2 mmol/L (22.0-26.0) H Arterial Blood Oxygen Saturation 97.8 % (95-100) 97.8 % (95-100) Arterial Blood Base Excess 4.5 (-2-2) H 2.4 (-2-2) H Phan Test Positive Positive Intake and Output 07/10/19 07/11/19 19:00 07:00 Intake Total 1120 ml 1380 ml Output Total 905 ml 770 ml Balance 215 ml 610 ml Free Water 205 ml IV Total 1000 ml 455 ml Tube Feeding 120 ml 720 ml Output Urine Total 905 ml 770 ml # Bowel Movements 2 Objective PHYSICAL EXAMINATION: GENERAL: The patient is a well-developed and well-nourished male, in moderate respiratory distress. HEENT: Eyes, pupils are equal and responsive to light and accommodation. Extraocular movements are intact. NECK: Supple without lymphadenopathy. CHEST: nasal canula; Coarse breath sounds bilaterally with expiratory wheezes. Otherwise, without crackles. ABDOMINAL: Soft, nontender, and nondistended. Positive bowel sounds. No evidence of hepatosplenomegaly. Currently, no rebound or guarding noted. CARDIOVASCULAR: Tachycardic. Regular rhythm. S1 and S2 are normal without murmurs, rubs, or gallops. GENITOURINARY: Deferred. NEUROLOGICAL: Cranial nerves II to XII are grossly intact without focal deficits. EXTREMITIES: Negative for clubbing, cyanosis, or edema. Assessment/Plan Assessment/Plan ASSESSMENT: This is an 83-year-old male. 1. Dyspnea. 2. Respiratory distress. 3. Diabetes type 2. 4. Parkinson disease. 5. Hypercholesterolemia. 6. Dilated cardiomyopathy. 7. Dysphagia. 8. Benign prostatic hypertrophy. TREATMENT: 1. Dyspnea/respiratory distress. A Pulmonary consultation has been obtained with Dr. Kathryn Lopez. The patient is currently extubated. ABX=vanco, flagyl and cefepime intravenously. We will follow recommendations of Pulmonary. 2. Diabetes type 2. 3. Hypercholesterolemia. 4. Dilated cardiomyopathy. 5. Dysphagia. The patient is status post PEG placement. 6. Hypertensive heart disease. 7. Benign prostatic hypertrophy. 8. ID=[id number]. Page 9. See social work note concerning advanced directive Shukri Glover MD Jul 11, 2019 16:58
--- NOTE | 2019-07-11 17:22 | NUR ---
NURSE NOTES: md hernandez here to see pt. Addendum: 07/11/19 at 1834 by Sonali Ellington RN informed pt extubated at 1230, now on NC 4L. wbc 13.2. afebrile. ask about d/c order for picc. will remain for now. no new orders.
--- NOTE | 2019-07-11 19:14 | NUR ---
HAND-OFF: Report given to Rodrick Noriega pt in no acute distress.
[2019-07-11] MEDS: Dyna-Hex 2% Top Sol 2oz TOPIC SCH (20:43)
[2019-07-11] MEDS: Cefepime HCl 1 GM in D5W 55 ML IVPB SCH (20:45)
--- NOTE | 2019-07-11 21:00 | NUR ---
NURSE NOTES: Received patient from Rodrick HERMAN. Patient in bed with eyes open. Sinus Rhythm-sinus hillary on the monitor with HR 59. patient on 4 L NS at this time. Right Arm Iv site X2. Right IJ TLC TKO, all ports noted with good blood return at this time. GT feeding Vital AF @ 60 ml/hr, no residual noted at this time. Juan cath draining by gravity at this time. Bed in lowest position, side rails upx2. Patient on p200 mattress at this time. Bed alarm on. Call light with in reach. No signs of distress noted. Will continue to monitor.
[2019-07-11 22:00] LABS: APPEARANCE,URINE CLOUDY; BILIRUBIN, URINE NEGATIVE (NEGATIVE); GLUCOSE, URINE (UA) 3+ (NEGATIVE); KETONES,URINE NEGATIVE (NEGATIVE); LEUKOCYTE ESTERASE ,URINE 2+ (NEGATIVE); NITRITE,URINE NEGATIVE (NEGATIVE); PH,URINE 5 (4.5-8.0); PROTEIN,URINE 2+ (NEGATIVE); UROBILINOGEN,URINE NORMAL MG/DL (0.0-1.0)
[2019-07-11 22:02] LABS: COLOR,URINE YELLOW
--- NOTE | 2019-07-11 23:15 | NUR ---
NURSE NOTES: Patient sleeping at this time. Noted Sat to be 100%. Titrate NC. Now on 2L NC. Sats 100%. Sinus hillary HR 59, BP 125/67. patient denies any pain or discomfort at time time. Will continue to monitor.
[2019-07-12] VITALS (24 sets, daily range): BP systolic 111–166; BP diastolic 42–93
--- NOTE | 2019-07-12 02:30 | NUR ---
NURSE NOTES: CHG bath given at this time. Wound care provided. SCD's removed and reapplied. No signs of distress noted. patient continues on 2L NC at this time. Sat 97%. Will continue to monitor.
--- NOTE | 2019-07-12 03:30 | NUR ---
NURSE NOTES: Morning labs drawn and given to Tree Faller Scottie at this time. Patient continues sleeping. Will continue to monitor,
[2019-07-12] MEDS: Hydrocortisone 100mg Inj IV SCH ×3 (05:08→22:32)
[2019-07-12 05:28] LABS: HEMATOCRIT 28.4 % (42.0-52.0); HEMOGLOBIN 9.3 G/DL (14.2-18.0); MEAN CORPUSCULAR VOLUME 84 FL (80-99); PLATELET COUNT 160 K/UL (150-450); RED BLOOD COUNT 3.39 M/UL (4.70-6.10); WHITE BLOOD COUNT 12.2 K/UL (4.8-10.8)
--- NOTE | 2019-07-12 05:30 | NUR ---
NURSE NOTES: Patient noted to remove Nasal Canula at this time, Sat 97-100%. Sinus hillary with 1st degree Heart block. Patient Denies any SOB or pain at this time. Turned and repositioned for comfort. Morning meds given as per schedule. Will continue to monitor.
[2019-07-12 05:53] LABS: ALANINE AMINOTRANSFERASE 113 U/L (12-78); ALBUMIN 2.2 G/DL (3.4-5.0); ALBUMIN/GLOBULIN RATIO 0.6 (1.0-2.7); ALKALINE PHOSPHATASE 72 U/L (46-116); ANION GAP 5 mmol/L (5-15); ASPARTATE AMINO TRANSFERASE 23 U/L (15-37); BILIRUBIN,TOTAL 0.4 MG/DL (0.2-1.0); BLOOD UREA NITROGEN 25 mg/dL (7-18); CALCIUM 7.8 MG/DL (8.5-10.1); CARBON DIOXIDE 33 MMOL/L (21-32); CHLORIDE 108 MMOL/L (98-107); CREATININE 0.7 MG/DL (0.55-1.30); PHOSPHORUS 2.5 MG/DL (2.5-4.9); POTASSIUM 3.5 MMOL/L (3.5-5.1); SODIUM 146 MMOL/L (136-145)
--- NOTE | 2019-07-12 06:15 | NUR ---
NURSE NOTES: 10 MG Hydralazine given for SBP >160 at this time. Patient denies any pain or discomfort at this time. Will continue with plan of care.
--- NOTE | 2019-07-12 07:27 | NUR ---
HAND-OFF: Report given to Sonali HERMAN using SBAR. Notified her patient has been NPO since midnight for CT of the abdomen. Hydrolozine 10 mg was given this morning for SBP> 160. Also aware patient removes Nasal Canula.
--- NOTE | 2019-07-12 07:40 | NUR ---
NURSE NOTES: LATE ENTRY: RECEIVED REPORT FROM YANET Noriega PT IN BED, FATIGUED, EYES OPEN TO NAME, MORE VERBAL. A/OX2. BP 152/81, HR 69, RR 20, SATING 100%. 2L NC. SECRETIONS SCANT, WHITE, SMALL. GT PATENT, TUBE FEEDING ON HOLD PRIOR TO CT SCAN OF ABDOMEN AND PELVIS. ABDOMEN ROUND, NON TENDER. BOWEL SOUNDS HYPOACTIVE. NO BM AT THIS TIME. SAUCEDO DRAINING LIGHT SHELDON URINE. IV SITE RT IJ, RT FA 20G, RT WRIST 22G. NO S/S OF PAIN, SOB. AFEBRILE. SKIN- SEE ASSESSMENT. STANDARD PRECAUTIONS IN PLACE. BED LOCKED IN LOW POSITION, CALL LIGHT IN REACH, BED ALARM ON. WILL CONTINUE TO MONITOR PT.
--- NOTE | 2019-07-12 08:33 | Urology Progress Note ---
Assessment/Plan Assessment/Plan: 1. Left-sided hydronephrosis. 2. Proteinuria. 3. Hematuria. 4. Pyuria. 5. Urinary retention. 6. BPH history. 7. Rule out neurogenic bladder. 8. Mild acute kidney injury, improved. monitor clinically maintain nixon hand irrigated and do PRN abx as ordered CT A/P ordered, to be done once more medically stabilized monitor renal fxn Subjective Allergies: Coded Allergies: PENICILLINS (Verified Allergy, Unknown, 07/04/19) Subjective all noted, extubated Objective Last 24 Hour Vital Signs Date Time Temp Pulse Resp B/P (MAP) Pulse Ox O2 Delivery O2 Flow Rate FiO2 07/12/19 08:00 98.0 60 25 151/76 (101) 100 07/12/19 08:00 Nasal Cannula 2.0 Nasal Cannula 2.0 Nasal Cannula 2.0 Nasal Cannula 2.0 07/12/19 07:26 99 Nasal Cannula 2.0 28 07/12/19 07:00 85 29 158/81 (106) 97 07/12/19 06:13 166/74 07/12/19 06:00 57 29 166/58 (94) 97 07/12/19 05:00 75 27 158/60 (92) 100 07/12/19 04:00 56 07/12/19 04:00 97.9 60 26 157/69 (98) 94 07/12/19 04:00 Nasal Cannula 2.0 Nasal Cannula 2.0 Nasal Cannula 2.0 Nasal Cannula 2.0 07/12/19 03:00 89 28 153/63 (93) 100 07/12/19 02:00 89 28 153/58 (89) 100 07/12/19 01:00 61 31 162/68 (99) 100 07/12/19 00:00 Nasal Cannula 2.0 Nasal Cannula 2.0 Nasal Cannula 2.0 Nasal Cannula 2.0 07/12/19 00:00 97.9 56 23 125/67 (86) 98 07/12/19 00:00 57 07/11/19 23:00 63 31 155/67 (96) 100 07/11/19 22:00 64 25 137/51 (79) 100 07/11/19 21:00 74 30 146/61 (89) 91 07/11/19 20:00 97.9 65 35 136/53 (80) 97 07/11/19 20:00 Nasal Cannula 4.0 Nasal Cannula 4.0 Nasal Cannula 4.0 Nasal Cannula 4.0 Nasal Cannula 4.0 07/11/19 20:00 65 07/11/19 19:38 100 Nasal Cannula 2.0 28 07/11/19 19:00 66 39 149/61 (90) 99 07/11/19 18:00 69 24 152/65 (94) 99 07/11/19 17:00 66 34 165/65 (98) 92 07/11/19 16:00 63 07/11/19 16:00 98.4 55 24 145/60 (88) 100 07/11/19 16:00 Nasal Cannula 4.0 Nasal Cannula 4.0 Nasal Cannula 4.0 Mechanical Ventilator 4.0 Nasal Cannula 4.0 07/11/19 15:00 63 21 152/63 (92) 100 07/11/19 14:00 60 35 137/58 (84) 100 07/11/19 13:00 61 28 144/58 (86) 100 07/11/19 12:40 100 Cool Aerosol 10.0 40 07/11/19 12:36 Venturi Mask 10.0 40 07/11/19 12:30 10.0 07/11/19 12:13 158/54 07/11/19 12:00 98.6 69 27 158/54 (88) 100 07/11/19 12:00 67 07/11/19 12:00 35 07/11/19 12:00 Endotracheal Tube Mechanical Ventilator Mechanical Ventilator Mechanical Ventilator 07/11/19 11:08 64 27 35 35 07/11/19 11:00 64 25 146/60 (88) 100 07/11/19 10:00 57 25 143/64 (90) 100 07/11/19 08:42 80 33 35 35 Intake and Output 07/11/19 07/12/19 19:00 07:00 Intake Total 1920 ml 340 ml Output Total 440 ml 540 ml Balance 1480 ml -200 ml Free Water 100 ml IV Total 1200 ml Tube Feeding 720 ml 240 ml Output Urine Total 440 ml 540 ml Microbiology Date/Time Source Procedure Growth Status 07/06/19 11:40 Blood Blood Culture - Final NO GROWTH AFTER 5 DAYS Complete 07/04/19 10:15 Sputum Gram Stain - Final Complete 07/04/19 10:15 Sputum Culture - Final Nicolle Albicans Usual Respiratory Valery Complete 07/04/19 01:25 Urine,Clean Catch Urine Culture - Final NO GROWTH AFTER 48 HOURS Complete 07/04/19 00:43 Rectum - Final NO CARBAPENEM-RESISTANT ENTEROBACTERI... Complete Current Medications Medications (Trade) Dose Ordered Sig/Genoveva Route PRN Reason Start Time Stop Time Status Last Admin Dose Admin Acetaminophen (Tylenol) 650 mg Q6H PRN ORAL Mild Pain/Temp > 100.5 07/05/19 15:00 08/03/19 14:59 07/10/19 19:48 Cefepime HCl 1 gm/ Dextrose 55 ml @ 110 mls/hr Q24H IVPB 07/05/19 21:00 07/16/19 20:59 07/11/19 20:45 Chlorhexidine Gluconate (Alondra-Hex 2%) 1 applic DAILY@2000 TOPIC 07/05/19 20:00 08/04/19 19:59 07/11/19 20:43 Hydralazine HCl (Apresoline) 10 mg Q4H PRN IV bp over 160 syst 07/06/19 12:30 08/05/19 12:29 07/12/19 06:13 Hydrocortisone (Solu-CORTEF) 100 mg EVERY 8 HOURS IV 07/05/19 14:30 08/04/19 14:29 07/12/19 05:08 Lorazepam (Ativan 2mg/ml 1ml) 2 mg Q4H PRN IV For Anxiety 07/05/19 15:15 07/12/19 11:14 Metronidazole 100 ml @ 100 mls/hr Q12HR IVPB 07/11/19 21:00 07/18/19 20:59 07/11/19 20:44 Morphine Sulfate (Morphine Sulfate) 4 mg Q4H PRN IVP For Severe Pain (6 to 10) 07/05/19 15:15 07/12/19 11:14 Nitroglycerin (Ntg) 1 patch Q24H TDERMAL 07/06/19 12:30 08/05/19 12:29 07/11/19 12:13 Norepinephrine Bitartrate 4 mg/ Dextrose 250 ml @ 0 mls/hr Q24H IV 07/06/19 15:30 08/04/19 15:29 Pantoprazole (Protonix) 40 mg Q12HR IV 07/05/19 21:00 08/04/19 11:14 2/6/20 20:43 Promethazine HCl/ Codeine (Phenergan with Codeine) 5 ml Q4H PRN ORAL For Cough 07/05/19 15:30 08/03/19 07:29 Laboratory Tests 07/11/19 13:41: Arterial Blood pH 7.415, Arterial Blood Partial Pressure CO2 43.4, Arterial Blood Partial Pressure O2 129.0H, Arterial Blood HCO3 27.2H, Arterial Blood Oxygen Saturation 97.8, Arterial Blood Base Excess 2.4H, Phan Test Positive 07/11/19 21:20: Urine Color Yellow, Urine Appearance Cloudy, Urine pH 5, Urine Specific [place] 1.015, Urine Protein 2+H, Urine Glucose (UA) 3+H, Urine Ketones Negative, Urine Blood 5+H, Urine Nitrite Negative, Urine Bilirubin Negative, Urine Urobilinogen Normal, Urine Leukocyte Esterase 2+H, Urine RBC TntcH, Urine WBC 2-4, Urine Squamous Epithelial Cells Few, Urine Uric Acid Crystals Occasional, Urine Bacteria ModerateH 07/12/19 03:30: White Blood Count 12.2H, Red Blood Count 3.39L, Hemoglobin 9.3L, Hematocrit 28.4L, Mean Corpuscular Volume 84, Mean Corpuscular Hemoglobin 27.4, Mean Corpuscular Hemoglobin Concent 32.7, Red Cell Distribution Width 14.0, Platelet Count 160, Mean Platelet Volume 8.6, Neutrophils (%) (Auto) , Lymphocytes (%) ( Auto) , Monocytes (%) (Auto) , Eosinophils (%) (Auto) , Basophils (%) (Auto) , Neutrophils % (Manual) [Pending], Lymphocytes % (Manual) [Pending], Platelet Estimate [Pending], Platelet Morphology [Pending], Sodium Level 146H, Potassium Level 3.5, Chloride Level 108H, Carbon Dioxide Level 33H, Anion Gap 5, Blood Urea Nitrogen 25H, Creatinine 0.7, Estimat Glomerular Filtration Rate , Glucose Level 195H, Calcium Level 7.8L, Phosphorus Level 2.5, Magnesium Level 1.9, Total Bilirubin 0.4, Aspartate Amino Transf (AST/SGOT) 23, Alanine Aminotransferase (ALT/SGPT) 113H, Alkaline Phosphatase 72, C-Reactive Protein, Quantitative 1.6H, Pro-B-Type Natriuretic Peptide 2645H, Total Protein 5.8L, Albumin 2.2L, Globulin 3.6, Albumin/Globulin Ratio 0.6L Height (Feet): 5 Height (Inches): 8.00 Weight (Pounds): 163 Objective exam stable nixon indwelling urine yellow/kristen, occasional debris Clayton Callejas MD Jul 12, 2019 08:33
[2019-07-12] MEDS: Pantoprazole Inj IV SCH ×2 (08:54→20:56)
--- NOTE | 2019-07-12 10:13 | Pulmonolgy Critical Care Note ---
Critical Care - Asmt/Plan Problems: (1) Cardiac arrest with successful resuscitation (2) Respiratory failure with hypoxia (3) Hypotension (4) Diabetes mellitus (5) Hydronephrosis (6) Feeding by G-tube (7) Parkinson disease Respiratory: monitor respiratory rate, adjust FIO2, CXR Cardiac: continue to monitor HR/BP Renal: F/U I&O, keep IV fluid, check electrolytes Infectious Disease: check cultures, continue antibiotics Gastrointestinal: continue feedings/current rate Endocrine: monitor blood sugar, continue sliding scale insulin Hematologic: monitor H/H, transfuse if hgb<8.5 Prophylaxis: Protonix, Heparin Time Spent (Minutes): 40 Notes Reviewed: airborne weapons technical manager, cardio, renal, ID Discussed with: consultants, lining caserchemical plant manager - Objective Last 24 Hour Vital Signs Date Time Temp Pulse Resp B/P (MAP) Pulse Ox O2 Delivery O2 Flow Rate FiO2 07/12/19 08:00 98.0 60 25 151/76 (101) 100 07/12/19 08:00 66 07/12/19 08:00 Nasal Cannula 2.0 Nasal Cannula 2.0 Nasal Cannula 2.0 Nasal Cannula 2.0 07/12/19 07:26 99 Nasal Cannula 2.0 28 07/12/19 07:00 85 29 158/81 (106) 97 07/12/19 06:13 166/74 07/12/19 06:00 57 29 166/58 (94) 97 07/12/19 05:00 75 27 158/60 (92) 100 07/12/19 04:00 56 07/12/19 04:00 97.9 60 26 157/69 (98) 94 07/12/19 04:00 Nasal Cannula 2.0 Nasal Cannula 2.0 Nasal Cannula 2.0 Nasal Cannula 2.0 07/12/19 03:00 89 28 153/63 (93) 100 07/12/19 02:00 89 28 153/58 (89) 100 07/12/19 01:00 61 31 162/68 (99) 100 07/12/19 00:00 Nasal Cannula 2.0 Nasal Cannula 2.0 Nasal Cannula 2.0 Nasal Cannula 2.0 07/12/19 00:00 97.9 56 23 125/67 (86) 98 07/12/19 00:00 57 07/11/19 23:00 63 31 155/67 (96) 100 07/11/19 22:00 64 25 137/51 (79) 100 07/11/19 21:00 74 30 146/61 (89) 91 07/11/19 20:00 97.9 65 35 136/53 (80) 97 07/11/19 20:00 Nasal Cannula 4.0 Nasal Cannula 4.0 Nasal Cannula 4.0 Nasal Cannula 4.0 Nasal Cannula 4.0 07/11/19 20:00 65 07/11/19 19:38 100 Nasal Cannula 2.0 28 07/11/19 19:00 66 39 149/61 (90) 99 07/11/19 18:00 69 24 152/65 (94) 99 07/11/19 17:00 66 34 165/65 (98) 92 07/11/19 16:00 63 07/11/19 16:00 98.4 55 24 145/60 (88) 100 07/11/19 16:00 Nasal Cannula 4.0 Nasal Cannula 4.0 Nasal Cannula 4.0 Mechanical Ventilator 4.0 Nasal Cannula 4.0 07/11/19 15:00 63 21 152/63 (92) 100 07/11/19 14:00 60 35 137/58 (84) 100 07/11/19 13:00 61 28 144/58 (86) 100 07/11/19 12:40 100 Cool Aerosol 10.0 40 07/11/19 12:36 Venturi Mask 10.0 40 07/11/19 12:30 10.0 07/11/19 12:13 158/54 07/11/19 12:00 98.6 69 27 158/54 (88) 100 07/11/19 12:00 67 07/11/19 12:00 35 07/11/19 12:00 Endotracheal Tube Mechanical Ventilator Mechanical Ventilator Mechanical Ventilator 07/11/19 11:08 64 27 35 35 07/11/19 11:00 64 25 146/60 (88) 100 Status: sedated Condition: critical HEENT: atraumatic Lungs: chest wall tender Heart: HR/BP stable Abdomen: soft, non-tender, feeding tube Decubiti: location Micro: Microbiology Date/Time Source Procedure Growth Status 07/11/19 21:20 Urine,Clean Catch Urine Culture - Preliminary NO GROWTH Resulted Critical Care - Subjective ROS Limited/Unobtainable: Yes Interval Events: tolerating extubation, FI02: 28 Vent Support Breath Rate: 16 Vent Support Mode: AC Vent Tidal Volume: 650 Sputum Amount: Small PEEP: 0.0 PIP: 4 Tube Feeding Amount: 60 I&O: Intake and Output 07/11/19 07/12/19 19:00 07:00 Intake Total 1920 ml 340 ml Output Total 440 ml 540 ml Balance 1480 ml -200 ml Free Water 100 ml IV Total 1200 ml Tube Feeding 720 ml 240 ml Output Urine Total 440 ml 540 ml CXR: no new infiltrate ET-Tube: 7.5 ET Position: 24 Labs: Laboratory Tests Test 07/11/19 13:41 07/11/19 21:20 07/12/19 03:30 Arterial Blood pH 7.415 (7.350-7.450) Arterial Blood Partial Pressure CO2 43.4 mmHg (35.0-45.0) Arterial Blood Partial Pressure O2 129.0 mmHg (75.0-100.0) H Arterial Blood HCO3 27.2 mmol/L (22.0-26.0) H Arterial Blood Oxygen Saturation 97.8 % (95-100) Arterial Blood Base Excess 2.4 (-2-2) H Phan Test Positive Urine Color Yellow Urine Appearance Cloudy Urine pH 5 (4.5-8.0) Urine Specific [place] 1.015 (1.005-1.035) Urine Protein 2+ (NEGATIVE) H Urine Glucose (UA) 3+ (NEGATIVE) H Urine Ketones Negative (NEGATIVE) Urine Blood 5+ (NEGATIVE) H Urine Nitrite Negative (NEGATIVE) Urine Bilirubin Negative (NEGATIVE) Urine Urobilinogen Normal MG/DL (0.0-1.0) Urine Leukocyte Esterase 2+ (NEGATIVE) H Urine RBC Tntc /HPF (0 - 0) H Urine WBC 2-4 /HPF (0 - 0) Urine Squamous Epithelial Cells Few /LPF (NONE/OCC) Urine Uric Acid Crystals Occasional /LPF (NONE) Urine Bacteria Moderate /HPF (NONE) H White Blood Count 12.2 K/UL (4.8-10.8) H Red Blood Count 3.39 M/UL (4.70-6.10) L Hemoglobin 9.3 G/DL (14.2-18.0) L Hematocrit 28.4 % (42.0-52.0) L Mean Corpuscular Volume 84 FL (80-99) Mean Corpuscular Hemoglobin 27.4 PG (27.0-31.0) Mean Corpuscular Hemoglobin Concent 32.7 G/DL (32.0-36.0) Red Cell Distribution Width 14.0 % (11.6-14.8) Platelet Count 160 K/UL (150-450) Mean Platelet Volume 8.6 FL (6.5-10.1) Neutrophils (%) (Auto) % (45.0-75.0) Lymphocytes (%) (Auto) % (20.0-45.0) Monocytes (%) (Auto) % (1.0-10.0) Eosinophils (%) (Auto) % (0.0-3.0) Basophils (%) (Auto) % (0.0-2.0) Differential Total Cells Counted 100 Neutrophils % (Manual) 88 % (45-75) H Lymphocytes % (Manual) 5 % (20-45) L Monocytes % (Manual) 7 % (1-10) Eosinophils % (Manual) 0 % (0-3) Basophils % (Manual) 0 % (0-2) Band Neutrophils 0 % (0-8) Platelet Estimate Adequate Platelet Morphology Normal Hypochromasia 1+ Anisocytosis 1+ Sodium Level 146 MMOL/L (136-145) H Potassium Level 3.5 MMOL/L (3.5-5.1) Chloride Level 108 MMOL/L (98-107) H Carbon Dioxide Level 33 MMOL/L (21-32) H Anion Gap 5 mmol/L (5-15) Blood Urea Nitrogen 25 mg/dL (7-18) H Creatinine 0.7 MG/DL (0.55-1.30) Estimat Glomerular Filtration Rate mL/min (>60) Glucose Level 195 MG/DL (74-106) H Calcium Level 7.8 MG/DL (8.5-10.1) L Phosphorus Level 2.5 MG/DL (2.5-4.9) Magnesium Level 1.9 MG/DL (1.8-2.4) Total Bilirubin 0.4 MG/DL (0.2-1.0) Aspartate Amino Transf (AST/SGOT) 23 U/L (15-37) Alanine Aminotransferase (ALT/SGPT) 113 U/L (12-78) H Alkaline Phosphatase 72 U/L (46-116) C-Reactive Protein, Quantitative 1.6 mg/dL (0.00-0.90) H Pro-B-Type Natriuretic Peptide 2645 pg/mL (0-125) H Total Protein 5.8 G/DL (6.4-8.2) L Albumin 2.2 G/DL (3.4-5.0) L Globulin 3.6 g/dL Albumin/Globulin Ratio 0.6 (1.0-2.7) L Kathryn Lopez MD Jul 12, 2019 10:13
--- NOTE | 2019-07-12 10:25 | NUR ---
NURSE NOTES: MD PAOLA CEDENO TO SEE PT. INFORMED PT DM, RECOMMEND SLIDING SCALE, D/C RIJ. RECEIVED ORDER FOR SLIDING SCALE/SENSITIVE, HGBA1C, CULTURE CVC, MAINTAIN UNTIL FURTHER NOTICE.
[2019-07-12] MEDS ORDERED: NS 275ml ONE (11:03)
--- NOTE | 2019-07-12 12:00 | NUR ---
NURSE NOTES: LATE ENTRY: PT IN BED. FAMILY AT BEDSIDE DISGUSTING CODE STATUS CHANGE. VSS. PT NOW ON R.A, SATING 100%. NOTED RHONCHI. GT PATENT,CLAMPED. PT NPO TILL POST PROCEDURE. ABDOMEN ROUND, NON TENDER. BOWEL SOUNDS HYPOACTIVE. IV SITE RT IJ, RT FA 20G, RT WRIST 22G, TKO. NO S/S OF PAIN, SOB. STANDARD PRECAUTIONS IN PLACE. BED LOCKED IN LOW POSITION, CALL LIGHT IN REACH. WILL CONTINUE TO MONITOR PT.
--- NOTE | 2019-07-12 12:04 | Cardiac Electrophysiology PN ---
Assessment/Plan Assessment/Plan 1. Status post bradycardic arrest with heart rate in the 20s. Off any sinus node or AV destinee blocking agents. 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 The first two troponins on admission were negative. 5 follow up troponins were mildly elevated likely due to Code. No further critical hillary episode 2. NSTEMI. Due to arrest 3. Respiratory failure. D. Dimer positive. VQ scan pre code was low probability Extubated 07/11/19 3. Hypotension. Improved with IV fluid 5. Dehydration and hyperatremia on D5W 6. Dysphagia, status post PEG placement. 7. Diabetes. 8. Benign prostatic hypertrophy.SKYLER Callejas CT abdomen pending 9. Full code. DW RN Subjective Subjective Extubated yesterday. and RN at bedside. No bradycardia. Off pressors. Still full code Objective Last 24 Hour Vital Signs Date Time Temp Pulse Resp B/P (MAP) Pulse Ox O2 Delivery O2 Flow Rate FiO2 07/12/19 11:00 78 34 144/65 (91) 97 07/12/19 10:00 72 21 148/63 (91) 07/12/19 09:00 65 26 141/61 (87) 100 07/12/19 08:00 98.0 60 25 151/76 (101) 100 07/12/19 08:00 66 07/12/19 08:00 Nasal Cannula 2.0 Nasal Cannula 2.0 Nasal Cannula 2.0 Nasal Cannula 2.0 07/12/19 07:26 99 Nasal Cannula 2.0 28 07/12/19 07:00 85 29 158/81 (106) 97 07/12/19 06:13 166/74 07/12/19 06:00 57 29 166/58 (94) 97 07/12/19 05:00 75 27 158/60 (92) 100 07/12/19 04:00 56 07/12/19 04:00 97.9 60 26 157/69 (98) 94 07/12/19 04:00 Nasal Cannula 2.0 Nasal Cannula 2.0 Nasal Cannula 2.0 Nasal Cannula 2.0 07/12/19 03:00 89 28 153/63 (93) 100 07/12/19 02:00 89 28 153/58 (89) 100 07/12/19 01:00 61 31 162/68 (99) 100 07/12/19 00:00 Nasal Cannula 2.0 Nasal Cannula 2.0 Nasal Cannula 2.0 Nasal Cannula 2.0 07/12/19 00:00 97.9 56 23 125/67 (86) 98 07/12/19 00:00 57 07/11/19 23:00 63 31 155/67 (96) 100 07/11/19 22:00 64 25 137/51 (79) 100 07/11/19 21:00 74 30 146/61 (89) 91 07/11/19 20:00 97.9 65 35 136/53 (80) 97 07/11/19 20:00 Nasal Cannula 4.0 Nasal Cannula 4.0 Nasal Cannula 4.0 Nasal Cannula 4.0 Nasal Cannula 4.0 07/11/19 20:00 65 07/11/19 19:38 100 Nasal Cannula 2.0 28 07/11/19 19:00 66 39 149/61 (90) 99 07/11/19 18:00 69 24 152/65 (94) 99 07/11/19 17:00 66 34 165/65 (98) 92 07/11/19 16:00 63 07/11/19 16:00 98.4 55 24 145/60 (88) 100 07/11/19 16:00 Nasal Cannula 4.0 Nasal Cannula 4.0 Nasal Cannula 4.0 Mechanical Ventilator 4.0 Nasal Cannula 4.0 07/11/19 15:00 63 21 152/63 (92) 100 07/11/19 14:00 60 35 137/58 (84) 100 07/11/19 13:00 61 28 144/58 (86) 100 07/11/19 12:40 100 Cool Aerosol 10.0 40 07/11/19 12:36 Venturi Mask 10.0 40 07/11/19 12:30 10.0 07/11/19 12:13 158/54 Intake and Output 07/11/19 07/12/19 19:00 07:00 Intake Total 1920 ml 340 ml Output Total 440 ml 540 ml Balance 1480 ml -200 ml Free Water 100 ml IV Total 1200 ml Tube Feeding 720 ml 240 ml Output Urine Total 440 ml 540 ml Laboratory Tests Test 07/11/19 13:41 07/11/19 21:20 07/12/19 03:30 Arterial Blood pH 7.415 (7.350-7.450) Arterial Blood Partial Pressure CO2 43.4 mmHg (35.0-45.0) Arterial Blood Partial Pressure O2 129.0 mmHg (75.0-100.0) H Arterial Blood HCO3 27.2 mmol/L (22.0-26.0) H Arterial Blood Oxygen Saturation 97.8 % (95-100) Arterial Blood Base Excess 2.4 (-2-2) H Phan Test Positive Urine Color Yellow Urine Appearance Cloudy Urine pH 5 (4.5-8.0) Urine Specific [place] 1.015 (1.005-1.035) Urine Protein 2+ (NEGATIVE) H Urine Glucose (UA) 3+ (NEGATIVE) H Urine Ketones Negative (NEGATIVE) Urine Blood 5+ (NEGATIVE) H Urine Nitrite Negative (NEGATIVE) Urine Bilirubin Negative (NEGATIVE) Urine Urobilinogen Normal MG/DL (0.0-1.0) Urine Leukocyte Esterase 2+ (NEGATIVE) H Urine RBC Tntc /HPF (0 - 0) H Urine WBC 2-4 /HPF (0 - 0) Urine Squamous Epithelial Cells Few /LPF (NONE/OCC) Urine Uric Acid Crystals Occasional /LPF (NONE) Urine Bacteria Moderate /HPF (NONE) H White Blood Count 12.2 K/UL (4.8-10.8) H Red Blood Count 3.39 M/UL (4.70-6.10) L Hemoglobin 9.3 G/DL (14.2-18.0) L Hematocrit 28.4 % (42.0-52.0) L Mean Corpuscular Volume 84 FL (80-99) Mean Corpuscular Hemoglobin 27.4 PG (27.0-31.0) Mean Corpuscular Hemoglobin Concent 32.7 G/DL (32.0-36.0) Red Cell Distribution Width 14.0 % (11.6-14.8) Platelet Count 160 K/UL (150-450) Mean Platelet Volume 8.6 FL (6.5-10.1) Neutrophils (%) (Auto) % (45.0-75.0) Lymphocytes (%) (Auto) % (20.0-45.0) Monocytes (%) (Auto) % (1.0-10.0) Eosinophils (%) (Auto) % (0.0-3.0) Basophils (%) (Auto) % (0.0-2.0) Differential Total Cells Counted 100 Neutrophils % (Manual) 88 % (45-75) H Lymphocytes % (Manual) 5 % (20-45) L Monocytes % (Manual) 7 % (1-10) Eosinophils % (Manual) 0 % (0-3) Basophils % (Manual) 0 % (0-2) Band Neutrophils 0 % (0-8) Platelet Estimate Adequate Platelet Morphology Normal Hypochromasia 1+ Anisocytosis 1+ Sodium Level 146 MMOL/L (136-145) H Potassium Level 3.5 MMOL/L (3.5-5.1) Chloride Level 108 MMOL/L (98-107) H Carbon Dioxide Level 33 MMOL/L (21-32) H Anion Gap 5 mmol/L (5-15) Blood Urea Nitrogen 25 mg/dL (7-18) H Creatinine 0.7 MG/DL (0.55-1.30) Estimat Glomerular Filtration Rate mL/min (>60) Glucose Level 195 MG/DL (74-106) H Calcium Level 7.8 MG/DL (8.5-10.1) L Phosphorus Level 2.5 MG/DL (2.5-4.9) Magnesium Level 1.9 MG/DL (1.8-2.4) Total Bilirubin 0.4 MG/DL (0.2-1.0) Aspartate Amino Transf (AST/SGOT) 23 U/L (15-37) Alanine Aminotransferase (ALT/SGPT) 113 U/L (12-78) H Alkaline Phosphatase 72 U/L (46-116) C-Reactive Protein, Quantitative 1.6 mg/dL (0.00-0.90) H Pro-B-Type Natriuretic Peptide 2645 pg/mL (0-125) H Total Protein 5.8 G/DL (6.4-8.2) L Albumin 2.2 G/DL (3.4-5.0) L Globulin 3.6 g/dL Albumin/Globulin Ratio 0.6 (1.0-2.7) L Microbiology Date/Time Source Procedure Growth Status 07/11/19 21:20 Urine,Clean Catch Urine Culture - Preliminary NO GROWTH Resulted Objective HEAD AND NECK: Mild JVD. LUNGS: Decreased breath sounds. CARDIOVASCULAR: Tachycardic. ABDOMEN: Status post G-tube. EXTREMITIES: No pitting edema. Enio Santos MD Jul 12, 2019 12:04
--- NOTE | 2019-07-12 13:06 | Nephrology Progress Note ---
Assessment/Plan Problem List: (1) CARA (acute kidney injury) (2) Cardiac arrest with successful resuscitation (3) Respiratory failure with hypoxia (4) Hydronephrosis Assessment patient have Cara due to Low BP and s/p arrest elevated liver enzymes for same reason others: 1. Acute hypoxemic respiratory failure. 2. Hypotension possible sepsis. 3. Diabetes type 2. 4. Parkinson disease. 5. Hypercholesterolemia. 6. EjFx 65% reported 7. Dysphagia. 8. Benign prostatic hypertrophy. Plan Now extubated 2/ Nitro- Phos , K , Mag supplement as needed keep BP above 100 syst Pulm support monitor renal parameters discussed with RN VALENTINA: Moderate left hydronephrosis. Juan catheter. Echogenic right kidney. Suspected medical renal disease. Subjective ROS Limited/Unobtainable: No Constitutional: Reports: malaise Objective Objective Last 24 Hour Vital Signs Date Time Temp Pulse Resp B/P (MAP) Pulse Ox O2 Delivery O2 Flow Rate FiO2 07/12/19 12:00 98.5 68 25 157/71 (99) 99 07/12/19 12:00 Nasal Cannula 2.0 Nasal Cannula 2.0 Nasal Cannula 2.0 Nasal Cannula 2.0 07/12/19 11:00 78 34 144/65 (91) 97 07/12/19 10:00 72 21 148/63 (91) 07/12/19 09:00 65 26 141/61 (87) 100 07/12/19 08:00 98.0 60 25 151/76 (101) 100 07/12/19 08:00 66 07/12/19 08:00 Nasal Cannula 2.0 Nasal Cannula 2.0 Nasal Cannula 2.0 Nasal Cannula 2.0 07/12/19 07:26 99 Nasal Cannula 2.0 28 07/12/19 07:00 85 29 158/81 (106) 97 07/12/19 06:13 166/74 07/12/19 06:00 57 29 166/58 (94) 97 07/12/19 05:00 75 27 158/60 (92) 100 07/12/19 04:00 56 07/12/19 04:00 97.9 60 26 157/69 (98) 94 07/12/19 04:00 Nasal Cannula 2.0 Nasal Cannula 2.0 Nasal Cannula 2.0 Nasal Cannula 2.0 07/12/19 03:00 89 28 153/63 (93) 100 07/12/19 02:00 89 28 153/58 (89) 100 07/12/19 01:00 61 31 162/68 (99) 100 07/12/19 00:00 Nasal Cannula 2.0 Nasal Cannula 2.0 Nasal Cannula 2.0 Nasal Cannula 2.0 07/12/19 00:00 97.9 56 23 125/67 (86) 98 07/12/19 00:00 57 07/11/19 23:00 63 31 155/67 (96) 100 07/11/19 22:00 64 25 137/51 (79) 100 07/11/19 21:00 74 30 146/61 (89) 91 07/11/19 20:00 97.9 65 35 136/53 (80) 97 07/11/19 20:00 Nasal Cannula 4.0 Nasal Cannula 4.0 Nasal Cannula 4.0 Nasal Cannula 4.0 Nasal Cannula 4.0 07/11/19 20:00 65 07/11/19 19:38 100 Nasal Cannula 2.0 28 07/11/19 19:00 66 39 149/61 (90) 99 07/11/19 18:00 69 24 152/65 (94) 99 07/11/19 17:00 66 34 165/65 (98) 92 07/11/19 16:00 63 07/11/19 16:00 98.4 55 24 145/60 (88) 100 07/11/19 16:00 Nasal Cannula 4.0 Nasal Cannula 4.0 Nasal Cannula 4.0 Mechanical Ventilator 4.0 Nasal Cannula 4.0 07/11/19 15:00 63 21 152/63 (92) 100 07/11/19 14:00 60 35 137/58 (84) 100 Intake and Output 07/11/19 07/12/19 19:00 07:00 Intake Total 1920 ml 340 ml Output Total 440 ml 540 ml Balance 1480 ml -200 ml Free Water 100 ml IV Total 1200 ml Tube Feeding 720 ml 240 ml Output Urine Total 440 ml 540 ml Laboratory Tests 07/11/19 13:41: Arterial Blood pH 7.415, Arterial Blood Partial Pressure CO2 43.4, Arterial Blood Partial Pressure O2 129.0H, Arterial Blood HCO3 27.2H, Arterial Blood Oxygen Saturation 97.8, Arterial Blood Base Excess 2.4H, Phan Test Positive 07/11/19 21:20: Urine Color Yellow, Urine Appearance Cloudy, Urine pH 5, Urine Specific [place] 1.015, Urine Protein 2+H, Urine Glucose (UA) 3+H, Urine Ketones Negative, Urine Blood 5+H, Urine Nitrite Negative, Urine Bilirubin Negative, Urine Urobilinogen Normal, Urine Leukocyte Esterase 2+H, Urine RBC TntcH, Urine WBC 2-4, Urine Squamous Epithelial Cells Few, Urine Uric Acid Crystals Occasional, Urine Bacteria ModerateH 07/12/19 03:30: White Blood Count 12.2H, Red Blood Count 3.39L, Hemoglobin 9.3L, Hematocrit 28.4L, Mean Corpuscular Volume 84, Mean Corpuscular Hemoglobin 27.4, Mean Corpuscular Hemoglobin Concent 32.7, Red Cell Distribution Width 14.0, Platelet Count 160, Mean Platelet Volume 8.6, Neutrophils (%) (Auto) , Lymphocytes (%) ( Auto) , Monocytes (%) (Auto) , Eosinophils (%) (Auto) , Basophils (%) (Auto) , Differential Total Cells Counted 100, Neutrophils % (Manual) 88H, Lymphocytes % (Manual) 5L, Monocytes % (Manual) 7, Eosinophils % (Manual) 0, Basophils % ( Manual) 0, Band Neutrophils 0, Platelet Estimate Adequate, Platelet Morphology Normal, Hypochromasia 1+, Anisocytosis 1+, Sodium Level 146H, Potassium Level 3.5, Chloride Level 108H, Carbon Dioxide Level 33H, Anion Gap 5, Blood Urea Nitrogen 25H, Creatinine 0.7, Estimat Glomerular Filtration Rate , Glucose Level 195H, Hemoglobin A1c [Pending], Calcium Level 7.8L, Phosphorus Level 2.5, Magnesium Level 1.9, Total Bilirubin 0.4, Aspartate Amino Transf (AST/SGOT) 23, Alanine Aminotransferase (ALT/SGPT) 113H, Alkaline Phosphatase 72, C-Reactive Protein, Quantitative 1.6H, Pro-B-Type Natriuretic Peptide 2645H, Total Protein 5.8L, Albumin 2.2L, Globulin 3.6, Albumin/Globulin Ratio 0.6L Height (Feet): 5 Height (Inches): 8.00 Weight (Pounds): 163 General Appearance: no apparent distress EENT: other - now extubated Cardiovascular: normal rate Respiratory/Chest: decreased breath sounds Abdomen: soft Objective no change Oskar Mohr MD Jul 12, 2019 13:06
[2019-07-12] MEDS: Nitroglycerin Patch 0.4mg TDERMAL SCH (13:47)
--- NOTE | 2019-07-12 14:39 | NUR ---
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 98.5 HR 71 RR 34 B/P 144/65 2L NC O2 SAT @ 98% WBC 12.2 NA 146 CO2 33 BNP 2645 IS: FLAGYL IV CEFEPIME IV SOLU CORTEF IV PROTONIX IV ICU STATUS
--- NOTE | 2019-07-12 14:40 | NUR ---
NURSE NOTES: LATE ENTRY: TRANSPORT HERE TO TAKE PT TO CT SCAN. PT ON ELLIS DOWNEY.
--- NOTE | 2019-07-12 15:03 | NUR ---
NURSE NOTES: LATE ENTRY: PT BACK ON UNIT. CONNECTED TO MONITOR. VSS. PT IN NO ACUTE DISTRESS. WILL CONTINUE TO MONITOR.
--- NOTE | 2019-07-12 15:17 | Diagnostic Imaging Report ---
INDICATION: Abdominal pain TECHNIQUE: Continuous helical transaxial imaging of the abdomen and pelvis was obtained from the lung bases to the pubic symphysis. No intravenous contrast was administered. Coronal 2-D reformats were also obtained. Automatic Exposure Control was utilized. Total Dose length Product (DLP): 1386.[address] Dose Index Volume (CTDIvol): 27.1 mGy Comparison: none FINDINGS: There are extensive artifact limiting evaluation on this examination. Lungs: There is a trace left pleural effusion demonstrated. There is posterior basal atelectasis and cardiomegaly noted.. Liver: Grossly unremarkable Gallbladder/biliary system: Grossly unremarkable. Spleen: Grossly unremarkable Pancreas: Grossly unremarkable Kidneys: There is moderate left hydroureteronephrosis secondary to a mid ureteral stone measuring 1.5 cm (series 2/image #74). There are calcifications within the right kidney consistent with nonobstructive stones. There is thickening of the wall the urinary bladder consistent with cystitis. A Juan catheter is present which appears to be in good position.. Adrenal glands: Grossly unremarkable Bowel: Gastrostomy tube noted. Bowel gas pattern appears nonobstructive. There is moderate fecal retention in the colon and rectum. The rectum is distended. There is a left inguinal hernia containing a part of the sigmoid colon and possibly small bowel as well. There is no proximal dilatation to suggest obstruction. The hernia sac has a transverse measurement of about 6 to 7 cm in a craniocaudal dimension of about 9 to 10 cm. Aorta/IVC: Mild to moderate calcification of the aorta and iliac arteries demonstrated. There is no aneurysm. Peritoneum: No ascites demonstrated.. Bones: The bones are osteopenic. There is a mild anterolisthesis at L4-5. There is vacuum phenomenon narrowing of L5-S1 disc and narrowing of L4-5 disc. Multilevel hypertrophy of the facets noted. Generalized anasarca demonstrated. IMPRESSION: Moderate left hydroureteronephrosis secondary to a 1.5 cm left mid to distal ureter stone. Multiple nonobstructive stones within the right kidney. Thickening of the wall the urinary bladder consistent with cystitis. Juan catheter in good position. 10 x 7 cm left inguinal hernia containing bowel. No evidence of obstruction. Correlate clinically. Arterial vascular disease Anasarca. Trace left pleural effusion. Bilateral posterior basal atelectasis. Cardiomegaly. Degenerative changes of the spine as described above. Limited study due to extensive artifacts. Note: Evaluation of solid organs is limited on non contrast imaging. The CT scanner at [facility] is accredited by the [employer] and the scans are performed using dose optimization techniques as appropriate to a performed exam including Automatic Exposure control.
[2019-07-12] MEDS: NovoLOG Insulin Flexpen SUBQ SCH ×2 (16:51→21:00)
--- NOTE | 2019-07-12 17:00 | NUR ---
NURSE NOTES: LATE ENTRY: PT FOUND WITH IV REMOVED AT BEDSIDE. RT FA 20g. NO BLEEDING. REMAINING ARM IV WRAPPED IN KERLIX ROLL. PT REORIENTED, AND INSTRUCTED NOT TO PULL TUBING. WILL CLOSELY MONITOR PT.
--- NOTE | 2019-07-12 18:20 | Infectious Diseases Prog Note ---
Assessment/Plan Assessment/Plan Assessment: Shock, SP s/p cardiac arrest 07/05 Obstruct uropathy, L hydrouretenephrosis -07/12 CT abd/p: -07/12 CT abd/p: Moderate left hydroureteronephrosis secondary to a 1.5 cm left mid to distal ureter stone. Multiple nonobstructive stones within the right kidney. Thickening of the wall the urinary bladder consistent with cystitis. Juan catheter in good position. 10 x 7 cm left inguinal hernia containing bowel. No evidence of obstruction.Trace left pleural effusion. Bilateral posterior basal atelectasis. Sepsis Probable UTI Acute hypoxic respiratory failure, intubated 07/05; extubated 07/11 Aspiration pneumonia vs pneumonitis Gram positive bacteremia- contaminant -07/11 u/a wbc 2-4, nit neg, leuk +3; ucx NTD -07/06 Bcx Neg -07/05 CXR:Mild CHF -u/a wbc 5-10, nit neg, leuk +2; ucx Neg -Bcx 06/08 dipteriods -sp cx usual resp rupert -CXR: No acute process -influenza sc neg -v. duplex: no DVT -V/q scan:Findings are deemed low probability for pulmonary embolus Fever; low grade, recurrent Mild leukocytosis, increased CARA; improving Dm2 dysphagia s/p GT hx of PNA parkinson disease HTN bed bound NH resident Plan: -Continue empiric Cefepime #/-14 and Flagyl #/10 -07/09 SP IV Vancomycin #5 -07/04 SP Levaquin x1 -f/u cx -Monitor CBC/CMP, temperatures -aspiration precautions -ICU/GT care -Cards, nephro f/u -f/u Repeat Bcx x2, uCx -Cdiff if diarrhea -uro f/u Thank you for this consultation. Will continue to follow along with you. Discussed with RN. Subjective Allergies: Coded Allergies: PENICILLINS (Verified Allergy, Unknown, 07/04/19) Subjective afebrile >36hrs extubated yesterday wbc improved off pressors Objective Vital Signs Last 24 Hour Vital Signs Date Time Temp Pulse Resp B/P (MAP) Pulse Ox O2 Delivery O2 Flow Rate FiO2 07/12/19 16:00 98.9 79 30 143/85 (104) 93 07/12/19 16:00 Room Air Room Air Room Air Room Air 07/12/19 15:00 77 28 148/64 (92) 95 07/12/19 14:00 70 29 116/42 (66) 96 07/12/19 13:47 130/70 07/12/19 13:00 71 28 130/70 (90) 94 07/12/19 12:00 72 07/12/19 12:00 98.5 68 25 157/71 (99) 99 07/12/19 12:00 Nasal Cannula 2.0 Nasal Cannula 2.0 Nasal Cannula 2.0 Nasal Cannula 2.0 07/12/19 11:00 78 34 144/65 (91) 97 07/12/19 10:00 72 21 148/63 (91) 07/12/19 09:00 65 26 141/61 (87) 100 07/12/19 08:00 98.0 60 25 151/76 (101) 100 07/12/19 08:00 66 07/12/19 08:00 Nasal Cannula 2.0 Nasal Cannula 2.0 Nasal Cannula 2.0 Nasal Cannula 2.0 07/12/19 07:26 99 Nasal Cannula 2.0 28 07/12/19 07:00 85 29 158/81 (106) 97 07/12/19 06:13 166/74 07/12/19 06:00 57 29 166/58 (94) 97 07/12/19 05:00 75 27 158/60 (92) 100 07/12/19 04:00 56 07/12/19 04:00 97.9 60 26 157/69 (98) 94 07/12/19 04:00 Nasal Cannula 2.0 Nasal Cannula 2.0 Nasal Cannula 2.0 Nasal Cannula 2.0 07/12/19 03:00 89 28 153/63 (93) 100 07/12/19 02:00 89 28 153/58 (89) 100 07/12/19 01:00 61 31 162/68 (99) 100 07/12/19 00:00 Nasal Cannula 2.0 Nasal Cannula 2.0 Nasal Cannula 2.0 Nasal Cannula 2.0 07/12/19 00:00 97.9 56 23 125/67 (86) 98 07/12/19 00:00 57 07/11/19 23:00 63 31 155/67 (96) 100 07/11/19 22:00 64 25 137/51 (79) 100 07/11/19 21:00 74 30 146/61 (89) 91 07/11/19 20:00 97.9 65 35 136/53 (80) 97 07/11/19 20:00 Nasal Cannula 4.0 Nasal Cannula 4.0 Nasal Cannula 4.0 Nasal Cannula 4.0 Nasal Cannula 4.0 07/11/19 20:00 65 07/11/19 19:38 100 Nasal Cannula 2.0 28 07/11/19 19:00 66 39 149/61 (90) 99 Height (Feet): 5 Height (Inches): 8.00 Weight (Pounds): 163 Objective General Appearance: cachetic, thin Lines, tubes and drains: peripheral HEENT: normocephalic, atraumatic Neck: non-tender, normal alignment Respiratory/Chest: chest wall non-tender, lungs clear Breasts: no masses Cardiovascular/Chest: normal peripheral pulses, normal rate Abdomen: normal bowel sounds, non tender, hyperactive bowel sounds Genitourinary/Rectal: normal genital exam Extremities: normal range of motion Skin Exam: normal pigmentation Microbiology Date/Time Source Procedure Growth Status 07/11/19 21:20 Urine,Clean Catch Urine Culture - Preliminary NO GROWTH Resulted Laboratory Tests Test 07/11/19 21:20 07/12/19 03:30 Urine Color Yellow Urine Appearance Cloudy Urine pH 5 (4.5-8.0) Urine Specific [place] 1.015 (1.005-1.035) Urine Protein 2+ (NEGATIVE) H Urine Glucose (UA) 3+ (NEGATIVE) H Urine Ketones Negative (NEGATIVE) Urine Blood 5+ (NEGATIVE) H Urine Nitrite Negative (NEGATIVE) Urine Bilirubin Negative (NEGATIVE) Urine Urobilinogen Normal MG/DL (0.0-1.0) Urine Leukocyte Esterase 2+ (NEGATIVE) H Urine RBC Tntc /HPF (0 - 0) H Urine WBC 2-4 /HPF (0 - 0) Urine Squamous Epithelial Cells Few /LPF (NONE/OCC) Urine Uric Acid Crystals Occasional /LPF (NONE) Urine Bacteria Moderate /HPF (NONE) H White Blood Count 12.2 K/UL (4.8-10.8) H Red Blood Count 3.39 M/UL (4.70-6.10) L Hemoglobin 9.3 G/DL (14.2-18.0) L Hematocrit 28.4 % (42.0-52.0) L Mean Corpuscular Volume 84 FL (80-99) Mean Corpuscular Hemoglobin 27.4 PG (27.0-31.0) Mean Corpuscular Hemoglobin Concent 32.7 G/DL (32.0-36.0) Red Cell Distribution Width 14.0 % (11.6-14.8) Platelet Count 160 K/UL (150-450) Mean Platelet Volume 8.6 FL (6.5-10.1) Neutrophils (%) (Auto) % (45.0-75.0) Lymphocytes (%) (Auto) % (20.0-45.0) Monocytes (%) (Auto) % (1.0-10.0) Eosinophils (%) (Auto) % (0.0-3.0) Basophils (%) (Auto) % (0.0-2.0) Differential Total Cells Counted 100 Neutrophils % (Manual) 88 % (45-75) H Lymphocytes % (Manual) 5 % (20-45) L Monocytes % (Manual) 7 % (1-10) Eosinophils % (Manual) 0 % (0-3) Basophils % (Manual) 0 % (0-2) Band Neutrophils 0 % (0-8) Platelet Estimate Adequate Platelet Morphology Normal Hypochromasia 1+ Anisocytosis 1+ Sodium Level 146 MMOL/L (136-145) H Potassium Level 3.5 MMOL/L (3.5-5.1) Chloride Level 108 MMOL/L (98-107) H Carbon Dioxide Level 33 MMOL/L (21-32) H Anion Gap 5 mmol/L (5-15) Blood Urea Nitrogen 25 mg/dL (7-18) H Creatinine 0.7 MG/DL (0.55-1.30) Estimat Glomerular Filtration Rate mL/min (>60) Glucose Level 195 MG/DL (74-106) H Hemoglobin A1c 6.7 % (4.3-6.0) H Calcium Level 7.8 MG/DL (8.5-10.1) L Phosphorus Level 2.5 MG/DL (2.5-4.9) Magnesium Level 1.9 MG/DL (1.8-2.4) Total Bilirubin 0.4 MG/DL (0.2-1.0) Aspartate Amino Transf (AST/SGOT) 23 U/L (15-37) Alanine Aminotransferase (ALT/SGPT) 113 U/L (12-78) H Alkaline Phosphatase 72 U/L (46-116) C-Reactive Protein, Quantitative 1.6 mg/dL (0.00-0.90) H Pro-B-Type Natriuretic Peptide 2645 pg/mL (0-125) H Total Protein 5.8 G/DL (6.4-8.2) L Albumin 2.2 G/DL (3.4-5.0) L Globulin 3.6 g/dL Albumin/Globulin Ratio 0.6 (1.0-2.7) L Current Medications Medications (Trade) Dose Ordered Sig/Genoveva Route PRN Reason Start Time Stop Time Status Last Admin Dose Admin Acetaminophen (Tylenol) 650 mg Q6H PRN ORAL Mild Pain/Temp > 100.5 07/05/19 15:00 08/03/19 14:59 07/10/19 19:48 Cefepime HCl 1 gm/ Dextrose 55 ml @ 110 mls/hr Q24H IVPB 07/05/19 21:00 07/16/19 20:59 07/11/19 20:45 Chlorhexidine Gluconate (Alondra-Hex 2%) 1 applic DAILY@2000 TOPIC 07/05/19 20:00 08/04/19 19:59 07/11/19 20:43 Dextrose (Dextrose 50%) 25 ml Q30M PRN IV Hypoglycemia 07/12/19 12:00 08/11/19 11:59 Dextrose (Dextrose 50%) 50 ml Q30M PRN IV Hypoglycemia 07/12/19 12:00 08/11/19 11:59 Hydralazine HCl (Apresoline) 10 mg Q4H PRN IV bp over 160 syst 07/06/19 12:30 08/05/19 12:29 07/12/19 06:13 Hydrocortisone (Solu-CORTEF) 100 mg EVERY 8 HOURS IV 07/05/19 14:30 08/04/19 14:29 07/12/19 13:47 Insulin Aspart (NovoLOG) BEFORE MEALS AND HS SUBQ 07/12/19 16:30 08/11/19 16:29 07/12/19 16:51 Metronidazole 100 ml @ 100 mls/hr Q12HR IVPB 07/11/19 21:00 07/18/19 20:59 07/12/19 08:54 Nitroglycerin (Ntg) 1 patch Q24H TDERMAL 07/06/19 12:30 08/05/19 12:29 07/12/19 13:47 Norepinephrine Bitartrate 4 mg/ Dextrose 250 ml @ 0 mls/hr Q24H IV 07/06/19 15:30 08/04/19 15:29 Pantoprazole (Protonix) 40 mg Q12HR IV 07/05/19 21:00 08/04/19 11:14 07/12/19 08:54 Promethazine HCl/ Codeine (Phenergan with Codeine) 5 ml Q4H PRN ORAL For Cough 07/05/19 15:30 08/03/19 07:29 Mirian Page M.D. Jul 12, 2019 18:20
--- NOTE | 2019-07-12 18:21 | NUR ---
NURSE NOTES: CALLED MD TO WITH RESULTS OF CT OF ABDOMEN. NO NEW ORDERS AT THIS TIME.
--- NOTE | 2019-07-12 18:50 | Internal Med Progress Note ---
Subjective Physician Name Rayshawn Woods Attending Physician Rayshawn Woods MD Current Medications Medications (Trade) Dose Ordered Sig/Genoveva Route PRN Reason Start Time Stop Time Status Last Admin Dose Admin Acetaminophen (Tylenol) 650 mg Q6H PRN ORAL Mild Pain/Temp > 100.5 07/05/19 15:00 08/03/19 14:59 07/10/19 19:48 Cefepime HCl 1 gm/ Dextrose 55 ml @ 110 mls/hr Q24H IVPB 07/05/19 21:00 07/16/19 20:59 07/11/19 20:45 Chlorhexidine Gluconate (Alondra-Hex 2%) 1 applic DAILY@2000 TOPIC 07/05/19 20:00 08/04/19 19:59 07/11/19 20:43 Dextrose (Dextrose 50%) 25 ml Q30M PRN IV Hypoglycemia 07/12/19 12:00 08/11/19 11:59 Dextrose (Dextrose 50%) 50 ml Q30M PRN IV Hypoglycemia 07/12/19 12:00 08/11/19 11:59 Hydralazine HCl (Apresoline) 10 mg Q4H PRN IV bp over 160 syst 07/06/19 12:30 08/05/19 12:29 07/12/19 06:13 Hydrocortisone (Solu-CORTEF) 100 mg EVERY 8 HOURS IV 07/05/19 14:30 08/04/19 14:29 07/12/19 13:47 Insulin Aspart (NovoLOG) BEFORE MEALS AND HS SUBQ 07/12/19 16:30 08/11/19 16:29 07/12/19 16:51 Metronidazole 100 ml @ 100 mls/hr Q12HR IVPB 07/11/19 21:00 07/18/19 20:59 07/12/19 08:54 Nitroglycerin (Ntg) 1 patch Q24H TDERMAL 07/06/19 12:30 08/05/19 12:29 07/12/19 13:47 Norepinephrine Bitartrate 4 mg/ Dextrose 250 ml @ 0 mls/hr Q24H IV 07/06/19 15:30 08/04/19 15:29 Pantoprazole (Protonix) 40 mg Q12HR IV 07/05/19 21:00 08/04/19 11:14 07/12/19 08:54 Promethazine HCl/ Codeine (Phenergan with Codeine) 5 ml Q4H PRN ORAL For Cough 07/05/19 15:30 08/03/19 07:29 Allergies: Coded Allergies: PENICILLINS (Verified Allergy, Unknown, 07/04/19) Subjective In ICU, WBC 12.2, awake, alert, responsive, denies any chest pain or shortness of breath, able to follow commands. Objective Last Vital Signs Date Time Temp Pulse Resp B/P (MAP) Pulse Ox O2 Delivery O2 Flow Rate FiO2 07/12/19 18:00 77 39 151/71 (97) 98 07/12/19 16:00 98.9 07/12/19 16:00 Room Air Room Air Room Air Room Air 07/12/19 12:00 2.0 2.0 2.0 2.0 07/12/19 07:26 28 Laboratory Tests Test 07/11/19 21:20 07/12/19 03:30 Urine Color Yellow Urine Appearance Cloudy Urine pH 5 (4.5-8.0) Urine Specific [place] 1.015 (1.005-1.035) Urine Protein 2+ (NEGATIVE) H Urine Glucose (UA) 3+ (NEGATIVE) H Urine Ketones Negative (NEGATIVE) Urine Blood 5+ (NEGATIVE) H Urine Nitrite Negative (NEGATIVE) Urine Bilirubin Negative (NEGATIVE) Urine Urobilinogen Normal MG/DL (0.0-1.0) Urine Leukocyte Esterase 2+ (NEGATIVE) H Urine RBC Tntc /HPF (0 - 0) H Urine WBC 2-4 /HPF (0 - 0) Urine Squamous Epithelial Cells Few /LPF (NONE/OCC) Urine Uric Acid Crystals Occasional /LPF (NONE) Urine Bacteria Moderate /HPF (NONE) H White Blood Count 12.2 K/UL (4.8-10.8) H Red Blood Count 3.39 M/UL (4.70-6.10) L Hemoglobin 9.3 G/DL (14.2-18.0) L Hematocrit 28.4 % (42.0-52.0) L Mean Corpuscular Volume 84 FL (80-99) Mean Corpuscular Hemoglobin 27.4 PG (27.0-31.0) Mean Corpuscular Hemoglobin Concent 32.7 G/DL (32.0-36.0) Red Cell Distribution Width 14.0 % (11.6-14.8) Platelet Count 160 K/UL (150-450) Mean Platelet Volume 8.6 FL (6.5-10.1) Neutrophils (%) (Auto) % (45.0-75.0) Lymphocytes (%) (Auto) % (20.0-45.0) Monocytes (%) (Auto) % (1.0-10.0) Eosinophils (%) (Auto) % (0.0-3.0) Basophils (%) (Auto) % (0.0-2.0) Differential Total Cells Counted 100 Neutrophils % (Manual) 88 % (45-75) H Lymphocytes % (Manual) 5 % (20-45) L Monocytes % (Manual) 7 % (1-10) Eosinophils % (Manual) 0 % (0-3) Basophils % (Manual) 0 % (0-2) Band Neutrophils 0 % (0-8) Platelet Estimate Adequate Platelet Morphology Normal Hypochromasia 1+ Anisocytosis 1+ Sodium Level 146 MMOL/L (136-145) H Potassium Level 3.5 MMOL/L (3.5-5.1) Chloride Level 108 MMOL/L (98-107) H Carbon Dioxide Level 33 MMOL/L (21-32) H Anion Gap 5 mmol/L (5-15) Blood Urea Nitrogen 25 mg/dL (7-18) H Creatinine 0.7 MG/DL (0.55-1.30) Estimat Glomerular Filtration Rate mL/min (>60) Glucose Level 195 MG/DL (74-106) H Hemoglobin A1c 6.7 % (4.3-6.0) H Calcium Level 7.8 MG/DL (8.5-10.1) L Phosphorus Level 2.5 MG/DL (2.5-4.9) Magnesium Level 1.9 MG/DL (1.8-2.4) Total Bilirubin 0.4 MG/DL (0.2-1.0) Aspartate Amino Transf (AST/SGOT) 23 U/L (15-37) Alanine Aminotransferase (ALT/SGPT) 113 U/L (12-78) H Alkaline Phosphatase 72 U/L (46-116) C-Reactive Protein, Quantitative 1.6 mg/dL (0.00-0.90) H Pro-B-Type Natriuretic Peptide 2645 pg/mL (0-125) H Total Protein 5.8 G/DL (6.4-8.2) L Albumin 2.2 G/DL (3.4-5.0) L Globulin 3.6 g/dL Albumin/Globulin Ratio 0.6 (1.0-2.7) L Microbiology Date/Time Source Procedure Growth Status 07/11/19 21:20 Urine,Clean Catch Urine Culture - Preliminary NO GROWTH Resulted Intake and Output 07/11/19 07/12/19 19:00 07:00 Intake Total 1920 ml 340 ml Output Total 440 ml 540 ml Balance 1480 ml -200 ml Free Water 100 ml IV Total 1200 ml Tube Feeding 720 ml 240 ml Output Urine Total 440 ml 540 ml Objective General: Awake, alert, responsive, no acute distress. HEENT: pupils equal reactive to the light, EOMI, Neck: Supple, no significant jugular venous distention, Lungs: Fair respiratory afford, decreased air on the right side, no Wheeze or Rales. Heart: Regular rate and rhythm, normal S1/S2, no murmur. Abdomen: soft, nontender, mild distended. Normoactive bowel sounds. PEG site is intact. : Juan catheter. Extremities: No Cyanosis , clubbing or edema. 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 Skin: warm, no rash. Assessment/Plan Assessment/Plan 1. Acute hypoxemic respiratory failure. 2. Hypotension possible due to sepsis due to UTI. 3. Diabetes type 2. 4. Parkinson disease. 5. Hypercholesterolemia. 6. Dilated cardiomyopathy. 7. Dysphagia. 8. Benign prostatic hypertrophy. 9. Moderate left hydroureteronephrosis secondary to a 1.5 cm left mid to distal ureter stone, Plan: Follow-up with the laboratory as well as culture. Chest x-ray. Continue on antibiotics: cefepime IV, Flagyl IV. Consider transfer out of the ICU. DVT prophylaxis Heparin subcu. CODE STATUS: Full code. Follow-up with cardiology Consultation with Dr. Santos. Follow-up Pulmonary consultation with . CT scan of the abdomen and pelvic without contrast Moderate left hydroureteronephrosis secondary to a 1.5 cm left mid to distal ureter stone. Multiple nonobstructive stones within the right kidney. Thickening of the wall the urinary bladder consistent with cystitis. Juan catheter in good position. 10 x 7 cm left inguinal hernia containing bowel. No evidence of obstruction. Correlate clinically. Arterial vascular disease Anasarca. Trace left pleural effusion. Bilateral posterior basal atelectasis. Cardiomegaly. Degenerative changes of the spine as described above. Limited study due to extensive artifacts. Rayshawn Woods MD Jul 12, 2019 18:50
--- NOTE | 2019-07-12 19:23 | NUR ---
HAND-OFF: Report given to [facility] Lopez PT IN NO ACUTE DISTRESS. ENDORSED F/U TRANSFER TO [facility].
--- NOTE | 2019-07-12 19:30 | NUR ---
NURSE NOTES: Received patient from Chandana RN. Patient in bed awake,alert able to verbalize needs to staff. Sinus Rhythm on the monitor with HR 79. No SOB satting 100% room air. Right Arm Iv site X2. Right IJ TLC TKO, all ports noted with good blood return at this time. GT feeding Vital AF @ 25 ml/hr goal 60cc/hr, no residual noted at this time. HOB elevated. Juan cath draining. Bed in lowest position, side rails upx2. Patient on p200 mattress for wound management. Bed alarm on. Call light with in reach. Instructed patient to use call light for assistance. Will continue plan of care.
[2019-07-12] MEDS: Dyna-Hex 2% Top Sol 2oz TOPIC SCH (20:56)
[2019-07-12] MEDS: Cefepime HCl 1 GM in D5W 55 ML IVPB SCH (20:57)
--- NOTE | 2019-07-12 21:00 | NUR ---
NURSE NOTES: Blood glucose 109mg/dl no coverage
--- NOTE | 2019-07-12 23:00 | NUR ---
NURSE NOTES: Patient in bed resting. no moaning no facial grimaces. No fever. HOB elevated.turned and repositioned. no s/s of acute distress noted. Call light within easy reach. will continue plan of care
[2019-07-13] VITALS (7 sets, daily range): BP systolic 140–161; BP diastolic 60–90
--- NOTE | 2019-07-13 00:30 | NUR ---
HAND-OFF: Report given to Emilee Galicia RN.
--- NOTE | 2019-07-13 01:14 | NUR ---
TRANSFER TO FLOOR: Patient transferred to SDU Per MD Lopez order at this time. Patient continues on Cardiac monitoring. Denies any discomfort. Report given to Manjit at this time.
--- NOTE | 2019-07-13 01:15 | NUR ---
NURSE NOTES: Pt transferred from ICU. Received report from VIRGIL Hebert. Pt is resting in bed awake,alert, On Tele monitor with SR. On RA and SaO2 100% noted. Rt. Wrist Iv site intact and no sign of infiltration noted. Pt has Right IJ TLC and dressing is clean and dry. On GT feeding with Vital AF @ 50 ml/hr goal 60cc/hr, no residual noted at this time. HOB elevated. Pt has Juan cath and draining well. Dressing is clean and dry on wound area. Changed position. Placed fall precaution. Will continue to care plan.
[2019-07-13] MEDS ORDERED: Promethazine/Codeine 5ml UD ORAL PRN (01:41)
[2019-07-13] MEDS ORDERED: Hydrocortisone 100mg Inj IV SCH (06:00)
[2019-07-13 06:01] LABS: HEMATOCRIT 28.3 % (42.0-52.0); HEMOGLOBIN 9.2 G/DL (14.2-18.0); MEAN CORPUSCULAR VOLUME 84 FL (80-99); PLATELET COUNT 174 K/UL (150-450); RED BLOOD COUNT 3.36 M/UL (4.70-6.10); RED CELL DISTRIBUTION WIDTH 14.9 % (11.6-14.8); WHITE BLOOD COUNT 11.6 K/UL (4.8-10.8)
[2019-07-13 06:29] LABS: ALANINE AMINOTRANSFERASE 89 U/L (12-78); ALBUMIN 2.3 G/DL (3.4-5.0); ALBUMIN/GLOBULIN RATIO 0.7 (1.0-2.7); ALKALINE PHOSPHATASE 66 U/L (46-116); ANION GAP 4 mmol/L (5-15); ASPARTATE AMINO TRANSFERASE 18 U/L (15-37); BILIRUBIN,TOTAL 0.4 MG/DL (0.2-1.0); BLOOD UREA NITROGEN 26 mg/dL (7-18); CARBON DIOXIDE 34 MMOL/L (21-32); CHLORIDE 109 MMOL/L (98-107); CREATININE 0.8 MG/DL (0.55-1.30); POTASSIUM 3.2 MMOL/L (3.5-5.1); SODIUM 147 MMOL/L (136-145)
[2019-07-13] MEDS ORDERED: NovoLOG Insulin Flexpen SUBQ SCH (06:30)
--- NOTE | 2019-07-13 07:28 | NUR ---
HAND-OFF: Report given to VIRGIL Peoples. Pt is resting on the bed and no sign of acute distress noted.
--- NOTE | 2019-07-13 07:29 | NUR ---
NURSE NOTES: Report received from VIRGIL Saravia. Pt is sleeping in bed. Able to wake up to touch. Rambling noted but able to verbalize simple needs. Sinus rhythm with 1 AVB on nuclear unit operator On RA. O2 sat 92-93%. Mild secretion noted. Not much secretion orally. G-tube in place receiving Vital AF 1.2 at 60cc/hr. No residual noted. Juan in place draining kristen colored urine to gravity. Right IJ TLC and right wrist G22 patent and asymptomatic. Bed in lowest position. Side rails up x3. Will resume plan of care.
[2019-07-13] MEDS: Pantoprazole Inj IV SCH ×2 (08:39→20:36)
--- NOTE | 2019-07-13 09:09 | NUR ---
RADIOLOGY DEPT., CHEST X-RAY DONE.-P.DYE
--- NOTE | 2019-07-13 09:25 | Diagnostic Imaging Report ---
EXAM: XR Chest, 1 View CLINICAL HISTORY: DYSPNEA TECHNIQUE: Frontal view of the chest. COMPARISON: 07/11/19 FINDINGS: Lungs: There is improving pulmonary venous congestion. There is worsening mild left basilar infiltrate, and determined between atelectasis and pneumonia. Pleural space: There is a unchanged small left pleural effusion. No pneumothorax. Heart: There is unchanged cardiomegaly. Mediastinum: Unremarkable. Bones/joints: Unremarkable. Tubes, lines and devices: There is a right IJ central venous catheter in unchanged position. There is been removal of an endotracheal tube. IMPRESSION: Improving pulmonary venous congestion with unchanged small left pleural effusion and slight worsening of left basilar infiltrate, indeterminate between atelectasis and pneumonia
--- NOTE | 2019-07-13 09:44 | Urology Progress Note ---
Assessment/Plan Assessment/Plan: 1. Left-sided hydronephrosis, poss chronic. 2. Proteinuria. 3. Hematuria. 4. Pyuria. 5. Urinary retention. 6. BPH history. 7. Rule out neurogenic bladder. 8. Mild acute kidney injury, improved. 9. Left ureteral calculus. 10. Right renal calculi. 11. Cystitis. 12. Left inguinal hernia. monitor clinically maintain nixon hand irrigated and do PRN abx as ordered monitor renal fxn add flomax and proscar will consider tx of stones once more medically stabilized currently no flank pain and normal Cr voiding trial soon d/w pt's daughter Subjective Allergies: Coded Allergies: PENICILLINS (Verified Allergy, Unknown, 07/04/19) Subjective all noted, feels fair, no pain Objective Last 24 Hour Vital Signs Date Time Temp Pulse Resp B/P (MAP) Pulse Ox O2 Delivery O2 Flow Rate FiO2 07/13/19 08:58 68 20 95 Nasal Cannula 2.0 28 07/13/19 08:57 95 Nasal Cannula 2.0 28 07/13/19 08:00 98.8 71 16 143/75 (97) 96 07/13/19 04:00 98.4 65 24 142/65 (90) 95 07/13/19 04:00 60 07/13/19 04:00 Room Air Room Air Room Air Room Air 07/13/19 01:15 60 150/60 (90) 97 07/13/19 00:00 98.4 65 27 161/62 (95) 97 07/13/19 00:00 63 07/13/19 00:00 Room Air Room Air Room Air Room Air 07/12/19 23:00 65 23 140/62 (88) 95 07/12/19 22:00 67 28 150/93 (112) 98 07/12/19 21:00 75 29 143/60 (87) 95 07/12/19 20:00 Room Air Room Air Room Air Room Air 07/12/19 20:00 98.4 83 27 111/63 (79) 95 07/12/19 19:00 77 41 120/57 (78) 95 07/12/19 18:00 77 39 151/71 (97) 98 07/12/19 17:00 75 49 137/61 (86) 97 07/12/19 16:00 98.9 79 30 143/85 (104) 93 2/7/20 16:00 79 07/12/19 16:00 Room Air Room Air Room Air Room Air 07/12/19 15:00 77 28 148/64 (92) 95 07/12/19 14:00 70 29 116/42 (66) 96 07/12/19 13:47 130/70 07/12/19 13:00 71 28 130/70 (90) 94 07/12/19 12:00 72 07/12/19 12:00 98.5 68 25 157/71 (99) 99 07/12/19 12:00 Nasal Cannula 2.0 Nasal Cannula 2.0 Nasal Cannula 2.0 Nasal Cannula 2.0 07/12/19 11:00 78 34 144/65 (91) 97 07/12/19 10:00 72 21 148/63 (91) Intake and Output 07/12/19 07/13/19 19:00 07:00 Intake Total 215 ml 820 ml Output Total 470 ml 490 ml Balance -255 ml 330 ml Free Water 100 ml IV Total 100 ml 155 ml Tube Feeding 115 ml 565 ml Output Urine Total 470 ml 490 ml Microbiology Date/Time Source Procedure Growth Status 07/11/19 12:00 Blood Blood Culture - Preliminary NO GROWTH AFTER 24 HOURS Resulted 07/04/19 10:15 Sputum Gram Stain - Final Complete 07/04/19 10:15 Sputum Culture - Final Nicolle Albicans Usual Respiratory Valery Complete 07/11/19 21:20 Urine,Clean Catch Urine Culture - Preliminary NO GROWTH AFTER 24 HOURS Resulted 07/04/19 00:43 Rectum - Final NO CARBAPENEM-RESISTANT ENTEROBACTERI... Complete Current Medications Medications (Trade) Dose Ordered Sig/Genoveva Route PRN Reason Start Time Stop Time Status Last Admin Dose Admin Acetaminophen (Tylenol) 650 mg Q6H PRN ORAL Mild Pain/Temp > 100.5 07/13/19 01:36 08/03/19 01:35 Cefepime HCl 1 gm/ Dextrose 55 ml @ 110 mls/hr Q24H IVPB 07/13/19 21:00 07/16/19 20:59 Chlorhexidine Gluconate (Alondra-Hex 2%) 1 applic DAILY@2000 TOPIC 07/13/19 20:00 08/04/19 19:59 Dextrose (Dextrose 50%) 25 ml Q30M PRN IV Hypoglycemia 07/13/19 01:30 08/11/19 11:59 Dextrose (Dextrose 50%) 50 ml Q30M PRN IV Hypoglycemia 07/13/19 01:30 08/11/19 11:59 Hydralazine HCl (Apresoline) 10 mg Q4H PRN IV bp over 160 syst 07/13/19 01:38 08/05/19 01:37 Hydrocortisone (Solu-CORTEF) 100 mg EVERY 8 HOURS IV 07/13/19 06:00 08/04/19 14:29 07/13/19 05:42 Insulin Aspart (NovoLOG) Q6HR SUBQ 07/13/19 12:00 08/11/19 16:29 Metronidazole 100 ml @ 100 mls/hr Q12HR IVPB 07/13/19 09:00 07/18/19 20:59 07/13/19 08:39 Nitroglycerin (Ntg) 1 patch Q24H TDERMAL 07/13/19 12:30 08/05/19 12:29 Pantoprazole (Protonix) 40 mg Q12HR IV 07/13/19 09:00 08/04/19 11:14 07/13/19 08:39 Potassium Chloride 100 ml @ 100 mls/hr Q1HR IVPB 07/13/19 09:00 07/13/19 11:59 07/13/19 08:39 Promethazine HCl/ Codeine (Phenergan with Codeine) 5 ml Q4H PRN ORAL For Cough 07/13/19 01:41 08/03/19 01:40 Laboratory Tests 07/13/19 04:30: White Blood Count 11.6H, Red Blood Count 3.36L, Hemoglobin 9.2L, Hematocrit 28.3L, Mean Corpuscular Volume 84, Mean Corpuscular Hemoglobin 27.6, Mean Corpuscular Hemoglobin Concent 32.7, Red Cell Distribution Width 14.9H, Platelet Count 174, Mean Platelet Volume 7.7, Neutrophils (%) (Auto) , Lymphocytes (%) (Auto) , Monocytes (%) (Auto) , Eosinophils (%) (Auto) , Basophils (%) (Auto) , Differential Total Cells Counted 100, Neutrophils % ( Manual) 88H, Lymphocytes % (Manual) 6L, Monocytes % (Manual) 6, Eosinophils % ( Manual) 0, Basophils % (Manual) 0, Band Neutrophils 0, Platelet Estimate Adequate, Platelet Morphology Normal, Anisocytosis 1+, Sodium Level 147H, Potassium Level 3.2L, Chloride Level 109H, Carbon Dioxide Level 34H, Anion Gap 4L, Blood Urea Nitrogen 26H, Creatinine 0.8, Estimat Glomerular Filtration Rate , Glucose Level 197H, Calcium Level 8.0L, Total Bilirubin 0.4, Aspartate Amino Transf (AST/SGOT) 18, Alanine Aminotransferase (ALT/SGPT) 89H, Alkaline Phosphatase 66, Pro-B-Type Natriuretic Peptide 3234H, Total Protein 5.8L, Albumin 2.3L, Globulin 3.5, Albumin/Globulin Ratio 0.7L Height (Feet): 5 Height (Inches): 8.00 Weight (Pounds): 168 Objective exam stable nixon indwelling urine yellow/kristen, occasional debris CT A/P (07/12) noted Clayton Callejas MD Jul 13, 2019 09:44
--- NOTE | 2019-07-13 10:06 | Nephrology Progress Note ---
Assessment/Plan Problem List: (1) RIA (acute kidney injury) (2) Cardiac arrest with successful resuscitation (3) Respiratory failure with hypoxia (4) Hydronephrosis Assessment patient have Ria due to Low BP and s/p arrest elevated liver enzymes for same reason others: 1. Acute hypoxemic respiratory failure. 2. Hypotension possible sepsis. 3. Diabetes type 2. 4. Parkinson disease. 5. Hypercholesterolemia. 6. EjFx 65% reported 7. Dysphagia. 8. Benign prostatic hypertrophy. Plan Now extubated 2/ Nitro- Phos , K , Mag supplement as needed keep BP above 100 syst Pulm support monitor renal parameters discussed with RN VALENTINA: Moderate left hydronephrosis. Juan catheter. Echogenic right kidney. Suspected medical renal disease. Subjective ROS Limited/Unobtainable: No Constitutional: Reports: malaise, weakness Objective Objective Last 24 Hour Vital Signs Date Time Temp Pulse Resp B/P (MAP) Pulse Ox O2 Delivery O2 Flow Rate FiO2 07/13/19 08:58 68 20 95 Nasal Cannula 2.0 28 07/13/19 08:57 95 Nasal Cannula 2.0 28 07/13/19 08:00 98.8 71 16 143/75 (97) 96 07/13/19 08:00 Nasal Cannula 2.0 Nasal Cannula 2.0 Nasal Cannula 2.0 07/13/19 04:00 98.4 65 24 142/65 (90) 95 07/13/19 04:00 60 07/13/19 04:00 Room Air Room Air Room Air Room Air 07/13/19 01:15 60 150/60 (90) 97 07/13/19 00:00 98.4 65 27 161/62 (95) 97 07/13/19 00:00 63 07/13/19 00:00 Room Air Room Air Room Air Room Air 07/12/19 23:00 65 23 140/62 (88) 95 07/12/19 22:00 67 28 150/93 (112) 98 07/12/19 21:00 75 29 143/60 (87) 95 07/12/19 20:00 Room Air Room Air Room Air Room Air 07/12/19 20:00 98.4 83 27 111/63 (79) 95 07/12/19 19:00 77 41 120/57 (78) 95 07/12/19 18:00 77 39 151/71 (97) 98 07/12/19 17:00 75 49 137/61 (86) 97 07/12/19 16:00 98.9 79 30 143/85 (104) 93 07/12/19 16:00 79 07/12/19 16:00 Room Air Room Air Room Air Room Air 07/12/19 15:00 77 28 148/64 (92) 95 07/12/19 14:00 70 29 116/42 (66) 96 07/12/19 13:47 130/70 07/12/19 13:00 71 28 130/70 (90) 94 07/12/19 12:00 72 07/12/19 12:00 98.5 68 25 157/71 (99) 99 07/12/19 12:00 Nasal Cannula 2.0 Nasal Cannula 2.0 Nasal Cannula 2.0 Nasal Cannula 2.0 07/12/19 11:00 78 34 144/65 (91) 97 Intake and Output 07/12/19 07/13/19 19:00 07:00 Intake Total 215 ml 820 ml Output Total 470 ml 490 ml Balance -255 ml 330 ml Free Water 100 ml IV Total 100 ml 155 ml Tube Feeding 115 ml 565 ml Output Urine Total 470 ml 490 ml Laboratory Tests 07/13/19 04:30: White Blood Count 11.6H, Red Blood Count 3.36L, Hemoglobin 9.2L, Hematocrit 28.3L, Mean Corpuscular Volume 84, Mean Corpuscular Hemoglobin 27.6, Mean Corpuscular Hemoglobin Concent 32.7, Red Cell Distribution Width 14.9H, Platelet Count 174, Mean Platelet Volume 7.7, Neutrophils (%) (Auto) , Lymphocytes (%) (Auto) , Monocytes (%) (Auto) , Eosinophils (%) (Auto) , Basophils (%) (Auto) , Differential Total Cells Counted 100, Neutrophils % ( Manual) 88H, Lymphocytes % (Manual) 6L, Monocytes % (Manual) 6, Eosinophils % ( Manual) 0, Basophils % (Manual) 0, Band Neutrophils 0, Platelet Estimate Adequate, Platelet Morphology Normal, Anisocytosis 1+, Sodium Level 147H, Potassium Level 3.2L, Chloride Level 109H, Carbon Dioxide Level 34H, Anion Gap 4L, Blood Urea Nitrogen 26H, Creatinine 0.8, Estimat Glomerular Filtration Rate , Glucose Level 197H, Calcium Level 8.0L, Total Bilirubin 0.4, Aspartate Amino Transf (AST/SGOT) 18, Alanine Aminotransferase (ALT/SGPT) 89H, Alkaline Phosphatase 66, Pro-B-Type Natriuretic Peptide 3234H, Total Protein 5.8L, Albumin 2.3L, Globulin 3.5, Albumin/Globulin Ratio 0.7L Height (Feet): 5 Height (Inches): 8.00 Weight (Pounds): 168 General Appearance: no apparent distress Cardiovascular: normal rate Respiratory/Chest: decreased breath sounds Abdomen: soft Objective no change Oskar Mohr MD Jul 13, 2019 10:06
--- NOTE | 2019-07-13 10:18 | Infectious Diseases Prog Note ---
Assessment/Plan Assessment/Plan Assessment: Shock, SP s/p cardiac arrest 07/05 Obstruct uropathy, L hydrouretenephrosis -07/12 CT abd/p: -07/12 CT abd/p: Moderate left hydroureteronephrosis secondary to a 1.5 cm left mid to distal ureter stone. Multiple nonobstructive stones within the right kidney. Thickening of the wall the urinary bladder consistent with cystitis. Juan catheter in good position. 10 x 7 cm left inguinal hernia containing bowel. No evidence of obstruction.Trace left pleural effusion. Bilateral posterior basal atelectasis. Sepsis, Sp Probable UTI Acute hypoxic respiratory failure, intubated 07/05; extubated 07/11 Aspiration pneumonia vs pneumonitis Gram positive bacteremia- contaminant -07/11 u/a wbc 2-4, nit neg, leuk +3; ucx NTD -07/06 Bcx Neg -07/05 CXR:Mild CHF -u/a wbc 5-10, nit neg, leuk +2; ucx Neg -Bcx 06/08 dipteriods -sp cx usual resp rupert -CXR: No acute process -influenza sc neg -v. duplex: no DVT -V/q scan:Findings are deemed low probability for pulmonary embolus Fever; low grade, recurrent Mild leukocytosis, increased CARA; improving Dm2 dysphagia s/p GT hx of PNA parkinson disease HTN bed bound NH resident Plan: -Continue empiric Cefepime #03/14-14 and Flagyl # / -07/09 SP IV Vancomycin #5 -07/04 SP Levaquin x1 -f/u cx -Monitor CBC/CMP, temperatures -aspiration precautions -ICU/GT care -Cards, nephro f/u -f/u Repeat Bcx x2, uCx -Cdiff if diarrhea -uro f/u Thank you for this consultation. Will continue to follow along with you. Discussed with RN. Subjective Allergies: Coded Allergies: PENICILLINS (Verified Allergy, Unknown, 07/04/19) Subjective afebrile Objective Vital Signs Last 24 Hour Vital Signs Date Time Temp Pulse Resp B/P (MAP) Pulse Ox O2 Delivery O2 Flow Rate FiO2 07/13/19 08:58 68 20 95 Nasal Cannula 2.0 28 07/13/19 08:57 95 Nasal Cannula 2.0 28 07/13/19 08:00 98.8 71 16 143/75 (97) 96 07/13/19 08:00 Nasal Cannula 2.0 Nasal Cannula 2.0 Nasal Cannula 2.0 07/13/19 04:00 98.4 65 24 142/65 (90) 95 07/13/19 04:00 60 07/13/19 04:00 Room Air Room Air Room Air Room Air 07/13/19 01:15 60 150/60 (90) 97 07/13/19 00:00 98.4 65 27 161/62 (95) 97 07/13/19 00:00 63 07/13/19 00:00 Room Air Room Air Room Air Room Air 07/12/19 23:00 65 23 140/62 (88) 95 07/12/19 22:00 67 28 150/93 (112) 98 07/12/19 21:00 75 29 143/60 (87) 95 07/12/19 20:00 Room Air Room Air Room Air Room Air 07/12/19 20:00 98.4 83 27 111/63 (79) 95 07/12/19 19:00 77 41 120/57 (78) 95 07/12/19 18:00 77 39 151/71 (97) 98 07/12/19 17:00 75 49 137/61 (86) 97 07/12/19 16:00 98.9 79 30 143/85 (104) 93 07/12/19 16:00 79 07/12/19 16:00 Room Air Room Air Room Air Room Air 07/12/19 15:00 77 28 148/64 (92) 95 07/12/19 14:00 70 29 116/42 (66) 96 07/12/19 13:47 130/70 07/12/19 13:00 71 28 130/70 (90) 94 07/12/19 12:00 72 07/12/19 12:00 98.5 68 25 157/71 (99) 99 07/12/19 12:00 Nasal Cannula 2.0 Nasal Cannula 2.0 Nasal Cannula 2.0 Nasal Cannula 2.0 07/12/19 11:00 78 34 144/65 (91) 97 Height (Feet): 5 Height (Inches): 8.00 Weight (Pounds): 168 Respiratory/Chest: normal breath sounds Cardiovascular: normal rate Abdomen: no organomegaly Microbiology Date/Time Source Procedure Growth Status 07/11/19 12:00 Blood Blood Culture - Preliminary NO GROWTH AFTER 24 HOURS Resulted 07/11/19 12:00 Blood Blood Culture - Preliminary NO GROWTH AFTER 24 HOURS Resulted 07/11/19 21:20 Urine,Clean Catch Urine Culture - Preliminary NO GROWTH AFTER 24 HOURS Resulted Laboratory Tests Test 07/13/19 04:30 White Blood Count 11.6 K/UL (4.8-10.8) H Red Blood Count 3.36 M/UL (4.70-6.10) L Hemoglobin 9.2 G/DL (14.2-18.0) L Hematocrit 28.3 % (42.0-52.0) L Mean Corpuscular Volume 84 FL (80-99) Mean Corpuscular Hemoglobin 27.6 PG (27.0-31.0) Mean Corpuscular Hemoglobin Concent 32.7 G/DL (32.0-36.0) Red Cell Distribution Width 14.9 % (11.6-14.8) H Platelet Count 174 K/UL (150-450) Mean Platelet Volume 7.7 FL (6.5-10.1) Neutrophils (%) (Auto) % (45.0-75.0) Lymphocytes (%) (Auto) % (20.0-45.0) Monocytes (%) (Auto) % (1.0-10.0) Eosinophils (%) (Auto) % (0.0-3.0) Basophils (%) (Auto) % (0.0-2.0) Differential Total Cells Counted 100 Neutrophils % (Manual) 88 % (45-75) H Lymphocytes % (Manual) 6 % (20-45) L Monocytes % (Manual) 6 % (1-10) Eosinophils % (Manual) 0 % (0-3) Basophils % (Manual) 0 % (0-2) Band Neutrophils 0 % (0-8) Platelet Estimate Adequate Platelet Morphology Normal Anisocytosis 1+ Sodium Level 147 MMOL/L (136-145) H Potassium Level 3.2 MMOL/L (3.5-5.1) L Chloride Level 109 MMOL/L (98-107) H Carbon Dioxide Level 34 MMOL/L (21-32) H Anion Gap 4 mmol/L (5-15) L Blood Urea Nitrogen 26 mg/dL (7-18) H Creatinine 0.8 MG/DL (0.55-1.30) Estimat Glomerular Filtration Rate mL/min (>60) Glucose Level 197 MG/DL (74-106) H Calcium Level 8.0 MG/DL (8.5-10.1) L Total Bilirubin 0.4 MG/DL (0.2-1.0) Aspartate Amino Transf (AST/SGOT) 18 U/L (15-37) Alanine Aminotransferase (ALT/SGPT) 89 U/L (12-78) H Alkaline Phosphatase 66 U/L (46-116) Pro-B-Type Natriuretic Peptide 3234 pg/mL (0-125) H Total Protein 5.8 G/DL (6.4-8.2) L Albumin 2.3 G/DL (3.4-5.0) L Globulin 3.5 g/dL Albumin/Globulin Ratio 0.7 (1.0-2.7) L Current Medications Medications (Trade) Dose Ordered Sig/Genoveva Route PRN Reason Start Time Stop Time Status Last Admin Dose Admin Acetaminophen (Tylenol) 650 mg Q6H PRN ORAL Mild Pain/Temp > 100.5 07/13/19 01:36 08/03/19 01:35 Cefepime HCl 1 gm/ Dextrose 55 ml @ 110 mls/hr Q24H IVPB 07/13/19 21:00 07/16/19 20:59 Chlorhexidine Gluconate (Alondra-Hex 2%) 1 applic DAILY@2000 TOPIC 07/13/19 20:00 08/04/19 19:59 Dextrose (Dextrose 50%) 25 ml Q30M PRN IV Hypoglycemia 07/13/19 01:30 08/11/19 11:59 Dextrose (Dextrose 50%) 50 ml Q30M PRN IV Hypoglycemia 07/13/19 01:30 08/11/19 11:59 Hydralazine HCl (Apresoline) 10 mg Q4H PRN IV bp over 160 syst 07/13/19 01:38 08/05/19 01:37 Hydrocortisone (Solu-CORTEF) 100 mg EVERY 8 HOURS IV 07/13/19 06:00 08/04/19 14:29 07/13/19 05:42 Insulin Aspart (NovoLOG) Q6HR SUBQ 07/13/19 12:00 08/11/19 16:29 Metronidazole 100 ml @ 100 mls/hr Q12HR IVPB 07/13/19 09:00 07/18/19 20:59 07/13/19 08:39 Nitroglycerin (Ntg) 1 patch Q24H TDERMAL 07/13/19 12:30 08/05/19 12:29 Pantoprazole (Protonix) 40 mg Q12HR IV 07/13/19 09:00 08/04/19 11:14 07/13/19 08:39 Potassium Chloride 100 ml @ 100 mls/hr Q1HR IVPB 07/13/19 09:00 07/13/19 11:59 07/13/19 09:52 Promethazine HCl/ Codeine (Phenergan with Codeine) 5 ml Q4H PRN ORAL For Cough 07/13/19 01:41 08/03/19 01:40 William Ely MD Jul 13, 2019 10:18
--- NOTE | 2019-07-13 10:55 | Pulmonology Progress Note ---
Assessment/Plan Assessment/Plan ASSESSMENT shock s/p Bradycardic arrest with successful resuscitation Acute hypoxemic respiratory failure requiring intubation, s/p extubation 07/11 Elevated troponin/NSTEMI likely due to cardiac arrest Sepsis Probable UTI Aspiration pneumonia versus pneumonitis Left hydronephrosis with obstructive uropathy Acute kidney injury-resolved Dehydration Hyponatremia Dysphagia feeding by G-tube Diabetes mellitus Parkinson disease Anemia PLAN OF CARE [facility] s/p extubation 07/11 O2 titrate to keep sat above 90%, HHN CXR this am 07/13 - > Improving pulmonary venous congestion with unchanged small left pleural effusion and slight worsening of left basilar infiltrate, indeterminate between atelectasis and pneumonia Venous Dupelx negative VQ scan with low prob of PE abx as per ID monitor h/d status - improved; off any AV blocking agents cardio follows ECHO with pEF 60% and RVSP of 32 on stress dose of steroids IVF, monitor renal parameters, correct lytes prn / K calcium WNL if corrected for low albumin / as per nephro explanation renal US+mod L hydro CT A/P Moderate left hydroureteronephrosis secondary to a 1.5 cm left mid to distal ureter stone. Multiple nonobstructive stones within the right kidney. Thickening of the wall the urinary bladder consistent with cystitis. Juan catheter in good position. 10 x 7 cm left inguinal hernia containing bowel. No evidence of obstruction. Correlate clinically. Arterial vascular disease Anasarca. Trace left pleural effusion. Bilateral posterior basal atelectasis. Cardiomegaly. Degenerative changes of the spine as described above. urologist and nephro follows GTF, asp precautions BS management with SSI case discussed and evaluated by supervising physician Subjective Allergies: Coded Allergies: PENICILLINS (Verified Allergy, Unknown, 07/04/19) Subjective extubated 07/11, transferred to [facility] leukocytosis, trending down pulse ox stable on O2 via NC CT scan A/P noted Objective Last 24 Hour Vital Signs Date Time Temp Pulse Resp B/P (MAP) Pulse Ox O2 Delivery O2 Flow Rate FiO2 07/13/19 08:58 68 20 95 Nasal Cannula 2.0 28 07/13/19 08:57 95 Nasal Cannula 2.0 28 07/13/19 08:00 98.8 71 16 143/75 (97) 96 07/13/19 08:00 Nasal Cannula 2.0 Nasal Cannula 2.0 Nasal Cannula 2.0 07/13/19 04:00 98.4 65 24 142/65 (90) 95 07/13/19 04:00 60 07/13/19 04:00 Room Air Room Air Room Air Room Air 07/13/19 01:15 60 150/60 (90) 97 07/13/19 00:00 98.4 65 27 161/62 (95) 97 07/13/19 00:00 63 07/13/19 00:00 Room Air Room Air Room Air Room Air 07/12/19 23:00 65 23 140/62 (88) 95 07/12/19 22:00 67 28 150/93 (112) 98 07/12/19 21:00 75 29 143/60 (87) 95 07/12/19 20:00 Room Air Room Air Room Air Room Air 07/12/19 20:00 98.4 83 27 111/63 (79) 95 07/12/19 19:00 77 41 120/57 (78) 95 07/12/19 18:00 77 39 151/71 (97) 98 07/12/19 17:00 75 49 137/61 (86) 97 07/12/19 16:00 98.9 79 30 143/85 (104) 93 07/12/19 16:00 79 07/12/19 16:00 Room Air Room Air Room Air Room Air 07/12/19 15:00 77 28 148/64 (92) 95 07/12/19 14:00 70 29 116/42 (66) 96 07/12/19 13:47 130/70 07/12/19 13:00 71 28 130/70 (90) 94 07/12/19 12:00 72 07/12/19 12:00 98.5 68 25 157/71 (99) 99 07/12/19 12:00 Nasal Cannula 2.0 Nasal Cannula 2.0 Nasal Cannula 2.0 Nasal Cannula 2.0 07/12/19 11:00 78 34 144/65 (91) 97 Intake and Output 07/12/19 07/13/19 19:00 07:00 Intake Total 215 ml 820 ml Output Total 470 ml 490 ml Balance -255 ml 330 ml Free Water 100 ml IV Total 100 ml 155 ml Tube Feeding 115 ml 565 ml Output Urine Total 470 ml 490 ml General Appearance: no acute distress HEENT: normocephalic, atraumatic, anicteric Respiratory/Chest: lungs clear, no accessory muscle use Cardiovascular: normal rate Abdomen: normal bowel sounds, non distended, other - G tube Extremities: no edema, pedal pulses normal Neurologic/Psychiatric: abnormal gait Musculoskeletal: atrophy Microbiology Date/Time Source Procedure Growth Status 07/11/19 12:00 Blood Blood Culture - Preliminary NO GROWTH AFTER 24 HOURS Resulted 07/11/19 12:00 Blood Blood Culture - Preliminary NO GROWTH AFTER 24 HOURS Resulted 07/11/19 21:20 Urine,Clean Catch Urine Culture - Preliminary NO GROWTH AFTER 24 HOURS Resulted Laboratory Tests 07/13/19 04:30: White Blood Count 11.6H, Red Blood Count 3.36L, Hemoglobin 9.2L, Hematocrit 28.3L, Mean Corpuscular Volume 84, Mean Corpuscular Hemoglobin 27.6, Mean Corpuscular Hemoglobin Concent 32.7, Red Cell Distribution Width 14.9H, Platelet Count 174, Mean Platelet Volume 7.7, Neutrophils (%) (Auto) , Lymphocytes (%) (Auto) , Monocytes (%) (Auto) , Eosinophils (%) (Auto) , Basophils (%) (Auto) , Differential Total Cells Counted 100, Neutrophils % ( Manual) 88H, Lymphocytes % (Manual) 6L, Monocytes % (Manual) 6, Eosinophils % ( Manual) 0, Basophils % (Manual) 0, Band Neutrophils 0, Platelet Estimate Adequate, Platelet Morphology Normal, Anisocytosis 1+, Sodium Level 147H, Potassium Level 3.2L, Chloride Level 109H, Carbon Dioxide Level 34H, Anion Gap 4L, Blood Urea Nitrogen 26H, Creatinine 0.8, Estimat Glomerular Filtration Rate , Glucose Level 197H, Calcium Level 8.0L, Total Bilirubin 0.4, Aspartate Amino Transf (AST/SGOT) 18, Alanine Aminotransferase (ALT/SGPT) 89H, Alkaline Phosphatase 66, Pro-B-Type Natriuretic Peptide 3234H, Total Protein 5.8L, Albumin 2.3L, Globulin 3.5, Albumin/Globulin Ratio 0.7L Current Medications Medications (Trade) Dose Ordered Sig/Genoveva Route PRN Reason Start Time Stop Time Status Last Admin Dose Admin Acetaminophen (Tylenol) 650 mg Q6H PRN ORAL Mild Pain/Temp > 100.5 07/13/19 01:36 08/03/19 01:35 Cefepime HCl 1 gm/ Dextrose 55 ml @ 110 mls/hr Q24H IVPB 07/13/19 21:00 07/16/19 20:59 Chlorhexidine Gluconate (Alondra-Hex 2%) 1 applic DAILY@2000 TOPIC 07/13/19 20:00 08/04/19 19:59 Dextrose (Dextrose 50%) 25 ml Q30M PRN IV Hypoglycemia 07/13/19 01:30 08/11/19 11:59 Dextrose (Dextrose 50%) 50 ml Q30M PRN IV Hypoglycemia 07/13/19 01:30 08/11/19 11:59 Hydralazine HCl (Apresoline) 10 mg Q4H PRN IV bp over 160 syst 07/13/19 01:38 08/05/19 01:37 Hydrocortisone (Solu-CORTEF) 100 mg EVERY 8 HOURS IV 07/13/19 06:00 08/04/19 14:29 07/13/19 05:42 Insulin Aspart (NovoLOG) Q6HR SUBQ 07/13/19 12:00 08/11/19 16:29 Metronidazole 100 ml @ 100 mls/hr Q12HR IVPB 07/13/19 09:00 07/18/19 20:59 07/13/19 08:39 Nitroglycerin (Ntg) 1 patch Q24H TDERMAL 07/13/19 12:30 08/05/19 12:29 Pantoprazole (Protonix) 40 mg Q12HR IV 07/13/19 09:00 08/04/19 11:14 07/13/19 08:39 Potassium Chloride 100 ml @ 100 mls/hr Q1HR IVPB 07/13/19 09:00 07/13/19 11:59 07/13/19 09:52 Promethazine HCl/ Codeine (Phenergan with Codeine) 5 ml Q4H PRN ORAL For Cough 07/13/19 01:41 08/03/19 01:40 Valerie Balderrama [employer] Jul 13, 2019 10:55
[2019-07-13] MEDS ORDERED: Albuterol/Ipratropium 3ml neb HHN PRN (11:00)
[2019-07-13] MEDS: Nitroglycerin Patch 0.4mg TDERMAL SCH (11:59)
[2019-07-13] MEDS: NovoLOG Insulin Flexpen SUBQ SCH ×2 (11:59→18:03)
[2019-07-13] MEDS ORDERED: Tubing IV Secondary IV ONE ×2 (13:03→13:06)
[2019-07-13] MEDS ORDERED: NS 275ml ONE ×2 (13:03→13:06)
--- NOTE | 2019-07-13 14:05 | Cardiac Electrophysiology PN ---
Assessment/Plan Assessment/Plan 1. Status post bradycardic arrest with heart rate in the 20s. Off any sinus node or AV destinee blocking agents. 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 The first two troponins on admission were negative. 5 follow up troponins were mildly elevated likely due to Code. No further critical hillary episode 2. NSTEMI. Due to arrest 3. Respiratory failure. D. Dimer positive. VQ scan pre code was low probability Extubated 07/11/19 3. Hypotension. Improved with IV fluid 5. Dehydration and hyperatremia, resolved with D5W 6. Dysphagia, status post PEG 7. Diabetes. 8. Benign prostatic hypertrophy.SKYLER Callejas. S/P CT abdomen that showed Left hydronephrosis 9. Full code. CARI RN Subjective Subjective Transferred from ICU at 1 am today. PEG feeding ongoing. No bradycardia. Still full code Objective Last 24 Hour Vital Signs Date Time Temp Pulse Resp B/P (MAP) Pulse Ox O2 Delivery O2 Flow Rate FiO2 07/13/19 12:00 Nasal Cannula 2.0 Nasal Cannula 2.0 Nasal Cannula 2.0 07/13/19 11:59 154/90 07/13/19 11:58 98.8 75 16 154/90 (111) 98 07/13/19 11:39 68 07/13/19 08:58 68 20 95 Nasal Cannula 2.0 28 07/13/19 08:57 95 Nasal Cannula 2.0 28 07/13/19 08:00 98.8 71 16 143/75 (97) 96 07/13/19 08:00 Nasal Cannula 2.0 Nasal Cannula 2.0 Nasal Cannula 2.0 07/13/19 07:53 69 07/13/19 04:00 98.4 65 24 142/65 (90) 95 07/13/19 04:00 60 07/13/19 04:00 Room Air Room Air Room Air Room Air 07/13/19 01:15 60 150/60 (90) 97 07/13/19 00:00 98.4 65 27 161/62 (95) 97 07/13/19 00:00 63 07/13/19 00:00 Room Air Room Air Room Air Room Air 07/12/19 23:00 65 23 140/62 (88) 95 07/12/19 22:00 67 28 150/93 (112) 98 07/12/19 21:00 75 29 143/60 (87) 95 07/12/19 20:00 Room Air Room Air Room Air Room Air 07/12/19 20:00 98.4 83 27 111/63 (79) 95 07/12/19 19:00 77 41 120/57 (78) 95 07/12/19 18:00 77 39 151/71 (97) 98 07/12/19 17:00 75 49 137/61 (86) 97 07/12/19 16:00 98.9 79 30 143/85 (104) 93 07/12/19 16:00 79 07/12/19 16:00 Room Air Room Air Room Air Room Air 07/12/19 15:00 77 28 148/64 (92) 95 Intake and Output 07/12/19 07/13/19 19:00 07:00 Intake Total 215 ml 820 ml Output Total 470 ml 490 ml Balance -255 ml 330 ml Free Water 100 ml IV Total 100 ml 155 ml Tube Feeding 115 ml 565 ml Output Urine Total 470 ml 490 ml Laboratory Tests Test 07/13/19 04:30 White Blood Count 11.6 K/UL (4.8-10.8) H Red Blood Count 3.36 M/UL (4.70-6.10) L Hemoglobin 9.2 G/DL (14.2-18.0) L Hematocrit 28.3 % (42.0-52.0) L Mean Corpuscular Volume 84 FL (80-99) Mean Corpuscular Hemoglobin 27.6 PG (27.0-31.0) Mean Corpuscular Hemoglobin Concent 32.7 G/DL (32.0-36.0) Red Cell Distribution Width 14.9 % (11.6-14.8) H Platelet Count 174 K/UL (150-450) Mean Platelet Volume 7.7 FL (6.5-10.1) Neutrophils (%) (Auto) % (45.0-75.0) Lymphocytes (%) (Auto) % (20.0-45.0) Monocytes (%) (Auto) % (1.0-10.0) Eosinophils (%) (Auto) % (0.0-3.0) Basophils (%) (Auto) % (0.0-2.0) Differential Total Cells Counted 100 Neutrophils % (Manual) 88 % (45-75) H Lymphocytes % (Manual) 6 % (20-45) L Monocytes % (Manual) 6 % (1-10) Eosinophils % (Manual) 0 % (0-3) Basophils % (Manual) 0 % (0-2) Band Neutrophils 0 % (0-8) Platelet Estimate Adequate Platelet Morphology Normal Anisocytosis 1+ Sodium Level 147 MMOL/L (136-145) H Potassium Level 3.2 MMOL/L (3.5-5.1) L Chloride Level 109 MMOL/L (98-107) H Carbon Dioxide Level 34 MMOL/L (21-32) H Anion Gap 4 mmol/L (5-15) L Blood Urea Nitrogen 26 mg/dL (7-18) H Creatinine 0.8 MG/DL (0.55-1.30) Estimat Glomerular Filtration Rate mL/min (>60) Glucose Level 197 MG/DL (74-106) H Calcium Level 8.0 MG/DL (8.5-10.1) L Total Bilirubin 0.4 MG/DL (0.2-1.0) Aspartate Amino Transf (AST/SGOT) 18 U/L (15-37) Alanine Aminotransferase (ALT/SGPT) 89 U/L (12-78) H Alkaline Phosphatase 66 U/L (46-116) Pro-B-Type Natriuretic Peptide 3234 pg/mL (0-125) H Total Protein 5.8 G/DL (6.4-8.2) L Albumin 2.3 G/DL (3.4-5.0) L Globulin 3.5 g/dL Albumin/Globulin Ratio 0.7 (1.0-2.7) L Microbiology Date/Time Source Procedure Growth Status 07/11/19 12:00 Blood Blood Culture - Preliminary NO GROWTH AFTER 24 HOURS Resulted 07/11/19 12:00 Blood Blood Culture - Preliminary NO GROWTH AFTER 24 HOURS Resulted 07/11/19 21:20 Urine,Clean Catch Urine Culture - Preliminary NO GROWTH AFTER 24 HOURS Resulted Objective HEAD AND NECK: Mild JVD. LUNGS: Decreased breath sounds. CARDIOVASCULAR: RRR. No G/R/M ABDOMEN: Status post G-tube. EXTREMITIES: No pitting edema. Enio Santos MD Jul 13, 2019 14:05
--- NOTE | 2019-07-13 15:37 | Internal Med Progress Note ---
Subjective Date of Service: Jul 13, 2019 Physician Name Shukri Glover Attending Physician Rayshawn Woods MD Current Medications Medications (Trade) Dose Ordered Sig/Genoveva Route PRN Reason Start Time Stop Time Status Last Admin Dose Admin Acetaminophen (Tylenol) 650 mg Q6H PRN ORAL Mild Pain/Temp > 100.5 07/13/19 01:36 08/03/19 01:35 Albuterol/ Ipratropium (Albuterol/ Ipratropium) 3 ml Q4HRT PRN HHN sob 07/13/19 11:00 07/18/19 10:59 Cefepime HCl 1 gm/ Dextrose 55 ml @ 110 mls/hr Q24H IVPB 07/13/19 21:00 07/16/19 20:59 Chlorhexidine Gluconate (Alondra-Hex 2%) 1 applic DAILY@2000 TOPIC 07/13/19 20:00 08/04/19 19:59 Dextrose (Dextrose 50%) 25 ml Q30M PRN IV Hypoglycemia 07/13/19 01:30 08/11/19 11:59 Dextrose (Dextrose 50%) 50 ml Q30M PRN IV Hypoglycemia 07/13/19 01:30 08/11/19 11:59 Finasteride (Proscar) 5 mg DAILY ORAL 07/14/19 09:00 08/13/19 08:59 Finasteride (Proscar) 5 mg ONCE ORAL 07/13/19 15:00 07/13/19 16:00 Hydralazine HCl (Apresoline) 10 mg Q4H PRN IV bp over 160 syst 07/13/19 01:38 08/05/19 01:37 Hydrocortisone (Solu-CORTEF) 100 mg EVERY 12 HOURS IV 07/13/19 21:00 08/04/19 14:29 Insulin Aspart (NovoLOG) Q6HR SUBQ 07/13/19 12:00 08/11/19 16:29 07/13/19 11:59 Metronidazole 100 ml @ 100 mls/hr Q12HR IVPB 07/13/19 09:00 07/18/19 20:59 07/13/19 08:39 Nitroglycerin (Ntg) 1 patch Q24H TDERMAL 07/13/19 12:30 08/05/19 12:29 07/13/19 11:59 Pantoprazole (Protonix) 40 mg Q12HR IV 07/13/19 09:00 08/04/19 11:14 07/13/19 08:39 Promethazine HCl/ Codeine (Phenergan with Codeine) 5 ml Q4H PRN ORAL For Cough 07/13/19 01:41 08/03/19 01:40 Tamsulosin HCl (Flomax) 0.4 mg BEDTIME ORAL 07/13/19 21:00 08/12/19 20:59 Allergies: Coded Allergies: PENICILLINS (Verified Allergy, Unknown, 07/04/19) ROS Limited/Unobtainable: Yes Subjective 83 YO M admitted with dyspnea, now respiratory failure. Cover for Int Med-Dr Woods. [facility]. Extubated 07/11/19 Objective Last Vital Signs Date Time Temp Pulse Resp B/P (MAP) Pulse Ox O2 Delivery O2 Flow Rate FiO2 07/13/19 12:00 Nasal Cannula 2.0 Nasal Cannula 2.0 Nasal Cannula 2.0 07/13/19 11:59 154/90 07/13/19 11:58 98.8 75 16 98 07/13/19 08:58 28 Laboratory Tests Test 07/13/19 04:30 White Blood Count 11.6 K/UL (4.8-10.8) H Red Blood Count 3.36 M/UL (4.70-6.10) L Hemoglobin 9.2 G/DL (14.2-18.0) L Hematocrit 28.3 % (42.0-52.0) L Mean Corpuscular Volume 84 FL (80-99) Mean Corpuscular Hemoglobin 27.6 PG (27.0-31.0) Mean Corpuscular Hemoglobin Concent 32.7 G/DL (32.0-36.0) Red Cell Distribution Width 14.9 % (11.6-14.8) H Platelet Count 174 K/UL (150-450) Mean Platelet Volume 7.7 FL (6.5-10.1) Neutrophils (%) (Auto) % (45.0-75.0) Lymphocytes (%) (Auto) % (20.0-45.0) Monocytes (%) (Auto) % (1.0-10.0) Eosinophils (%) (Auto) % (0.0-3.0) Basophils (%) (Auto) % (0.0-2.0) Differential Total Cells Counted 100 Neutrophils % (Manual) 88 % (45-75) H Lymphocytes % (Manual) 6 % (20-45) L Monocytes % (Manual) 6 % (1-10) Eosinophils % (Manual) 0 % (0-3) Basophils % (Manual) 0 % (0-2) Band Neutrophils 0 % (0-8) Platelet Estimate Adequate Platelet Morphology Normal Anisocytosis 1+ Sodium Level 147 MMOL/L (136-145) H Potassium Level 3.2 MMOL/L (3.5-5.1) L Chloride Level 109 MMOL/L (98-107) H Carbon Dioxide Level 34 MMOL/L (21-32) H Anion Gap 4 mmol/L (5-15) L Blood Urea Nitrogen 26 mg/dL (7-18) H Creatinine 0.8 MG/DL (0.55-1.30) Estimat Glomerular Filtration Rate mL/min (>60) Glucose Level 197 MG/DL (74-106) H Calcium Level 8.0 MG/DL (8.5-10.1) L Total Bilirubin 0.4 MG/DL (0.2-1.0) Aspartate Amino Transf (AST/SGOT) 18 U/L (15-37) Alanine Aminotransferase (ALT/SGPT) 89 U/L (12-78) H Alkaline Phosphatase 66 U/L (46-116) Pro-B-Type Natriuretic Peptide 3234 pg/mL (0-125) H Total Protein 5.8 G/DL (6.4-8.2) L Albumin 2.3 G/DL (3.4-5.0) L Globulin 3.5 g/dL Albumin/Globulin Ratio 0.7 (1.0-2.7) L Microbiology Date/Time Source Procedure Growth Status 07/11/19 12:00 Blood Blood Culture - Preliminary NO GROWTH AFTER 24 HOURS Resulted 07/11/19 12:00 Blood Blood Culture - Preliminary NO GROWTH AFTER 24 HOURS Resulted 07/11/19 21:20 Urine,Clean Catch Urine Culture - Preliminary NO GROWTH AFTER 24 HOURS Resulted Intake and Output 07/12/19 07/13/19 19:00 07:00 Intake Total 215 ml 820 ml Output Total 470 ml 490 ml Balance -255 ml 330 ml Free Water 100 ml IV Total 100 ml 155 ml Tube Feeding 115 ml 565 ml Output Urine Total 470 ml 490 ml Objective PHYSICAL EXAMINATION: GENERAL: The patient is a well-developed and well-nourished male, in moderate respiratory distress. HEENT: Eyes, pupils are equal and responsive to light and accommodation. Extraocular movements are intact. NECK: Supple without lymphadenopathy. CHEST: nasal canula; Coarse breath sounds bilaterally with expiratory wheezes. Otherwise, without crackles. ABDOMINAL: Soft, nontender, and nondistended. Positive bowel sounds. No evidence of hepatosplenomegaly. Currently, no rebound or guarding noted. CARDIOVASCULAR: Tachycardic. Regular rhythm. S1 and S2 are normal without murmurs, rubs, or gallops. GENITOURINARY: Deferred. NEUROLOGICAL: Cranial nerves II to XII are grossly intact without focal deficits. EXTREMITIES: Negative for clubbing, cyanosis, or edema. Assessment/Plan Assessment/Plan ASSESSMENT: This is an 83-year-old male. 1. Dyspnea. 2. Respiratory distress. 3. Diabetes type 2. 4. Parkinson disease. 5. Hypercholesterolemia. 6. Dilated cardiomyopathy. 7. Dysphagia. 8. Benign prostatic hypertrophy. TREATMENT: 1. Dyspnea/respiratory distress. A Pulmonary consultation has been obtained with Dr. Kathryn Lopez. The patient is currently extubated. ABX=vanco, flagyl and cefepime intravenously. We will follow recommendations of Pulmonary. 2. Diabetes type 2. 3. Hypercholesterolemia. 4. Dilated cardiomyopathy. 5. Dysphagia. The patient is status post PEG placement. 6. Hypertensive heart disease. 7. Benign prostatic hypertrophy. 8. ID=[id number]. Page 9. See social work note concerning advanced directive Shukri Glover MD Jul 13, 2019 15:37
--- NOTE | 2019-07-13 17:00 | NUR ---
NURSE NOTES: Right IJ TLC removed as ordered. Pt tolerated well. Pressure applied and minimal amount of bleeding noted. Cleaned and repositioned pt. Scant amount of leaking from Juan noted. at bedside. Will continue to monitor pt.
--- NOTE | 2019-07-13 19:36 | NUR ---
HAND-OFF: Report given to Edward Rogers RN.
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
[2019-07-13] MEDS: Dyna-Hex 2% Top Sol 2oz TOPIC SCH (20:35)
[2019-07-13] MEDS: Hydrocortisone 100mg Inj IV SCH (20:36)
[2019-07-13] MEDS: Tamsulosin 0.4mg cap ORAL SCH (20:36)
[2019-07-13] MEDS: Cefepime HCl 1 GM in D5W 55 ML IVPB SCH (20:36)
[2019-07-14] VITALS: BP 135/71
[2019-07-14 04:00] VITALS: BP 142/64
[2019-07-14 05:43] LABS: HEMATOCRIT 30.3 % (42.0-52.0); MEAN CORPUSCULAR VOLUME 85 FL (80-99); PLATELET COUNT 153 K/UL (150-450); RED BLOOD COUNT 3.55 M/UL (4.70-6.10); RED CELL DISTRIBUTION WIDTH 15.7 % (11.6-14.8); WHITE BLOOD COUNT 13.2 K/UL (4.8-10.8)
[2019-07-14 06:16] LABS: ALANINE AMINOTRANSFERASE 73 U/L (12-78); ALBUMIN 2.3 G/DL (3.4-5.0); ALBUMIN/GLOBULIN RATIO 0.7 (1.0-2.7); ALKALINE PHOSPHATASE 79 U/L (46-116); ANION GAP 1 mmol/L (5-15); ASPARTATE AMINO TRANSFERASE 15 U/L (15-37); BILIRUBIN,TOTAL 0.4 MG/DL (0.2-1.0); BLOOD UREA NITROGEN 31 mg/dL (7-18); CARBON DIOXIDE 36 MMOL/L (21-32); CHLORIDE 111 MMOL/L (98-107); CREATININE 0.8 MG/DL (0.55-1.30); PHOSPHORUS 2.5 MG/DL (2.5-4.9); POTASSIUM 3.6 MMOL/L (3.5-5.1); SODIUM 148 MMOL/L (136-145)
[2019-07-14] MEDS: NovoLOG Insulin Flexpen SUBQ SCH ×5 (06:21→23:05)
--- NOTE | 2019-07-14 07:15 | NUR ---
HAND-OFF: Report given to VIRGIL Elaine.
--- NOTE | 2019-07-14 07:20 | NUR ---
NURSE NOTES: Received report from VIRGIL Leon. The patient is resting on the bed without acute distress or shortness of breath. The patient's bed in the lowest position, call light in reach, and fall and aspiration precaution reinforced. NC 2L in place and saturation within normal range. G-tube intact and running formula per order. The patient's residual is around 5mL. Juan intact and draining via gravity. Will continue plan of care.
[2019-07-14 08:00] VITALS: BP 159/79
[2019-07-14] MEDS: Pantoprazole Inj IV SCH ×2 (08:41→20:14)
[2019-07-14] MEDS: Hydrocortisone 100mg Inj IV SCH (08:41)
--- NOTE | 2019-07-14 09:03 | Urology Progress Note ---
Assessment/Plan Assessment/Plan: 1. Left-sided hydronephrosis, poss chronic. 2. Proteinuria. 3. Hematuria. 4. Pyuria. 5. Urinary retention. 6. BPH history. 7. Rule out neurogenic bladder. 8. Mild acute kidney injury, improved. 9. Left ureteral calculus. 10. Right renal calculi. 11. Cystitis. 12. Left inguinal hernia. monitor clinically maintain nixon hand irrigated and do PRN abx as ordered monitor renal fxn flomax and proscar added will consider tx of stones once more medically stabilized currently no flank pain and normal Cr voiding trial soon f/u on last blood cx Subjective Allergies: Coded Allergies: PENICILLINS (Verified Allergy, Unknown, 07/04/19) Subjective all noted, feels fair, no pain Objective Last 24 Hour Vital Signs Date Time Temp Pulse Resp B/P (MAP) Pulse Ox O2 Delivery O2 Flow Rate FiO2 07/14/19 08:00 98.2 63 22 159/79 (105) 99 07/14/19 07:45 65 20 100 Nasal Cannula 2.0 28 07/14/19 07:45 100 Nasal Cannula 2.0 28 07/14/19 04:00 68 07/14/19 04:00 98.0 63 18 142/64 (90) 99 07/14/19 04:00 Nasal Cannula 2.0 Nasal Cannula 2.0 07/14/19 00:00 98.4 72 19 135/71 (92) 97 07/14/19 00:00 Nasal Cannula 2.0 Nasal Cannula 2.0 07/14/19 00:00 68 07/13/19 20:00 67 07/13/19 20:00 98.0 69 21 140/75 (96) 96 07/13/19 20:00 Nasal Cannula 2.0 Nasal Cannula 2.0 07/13/19 19:25 100 Nasal Cannula 2.0 28 07/13/19 16:00 Nasal Cannula 2.0 Nasal Cannula 2.0 07/13/19 15:55 65 07/13/19 15:47 98.1 70 18 154/83 (106) 99 07/13/19 12:00 Nasal Cannula 2.0 Nasal Cannula 2.0 Nasal Cannula 2.0 07/13/19 11:59 154/90 07/13/19 11:58 98.8 75 16 154/90 (111) 98 07/13/19 11:39 68 Intake and Output 07/13/19 07/14/19 19:00 07:00 Intake Total 1270 ml 875 ml Output Total 550 ml 800 ml Balance 720 ml 75 ml Free Water 100 ml IV Total 400 ml 155 ml Tube Feeding 720 ml 720 ml Other 50 ml Output Urine Total 550 ml 800 ml Microbiology Date/Time Source Procedure Growth Status 07/11/19 12:00 Blood Blood Culture - Preliminary NO GROWTH AFTER 48 HOURS Resulted 07/04/19 10:15 Sputum Gram Stain - Final Complete 07/04/19 10:15 Sputum Culture - Final Nicolle Albicans Usual Respiratory Valery Complete 07/11/19 21:20 Urine,Clean Catch Urine Culture - Final NO GROWTH AFTER 48 HOURS Complete 07/04/19 00:43 Rectum - Final NO CARBAPENEM-RESISTANT ENTEROBACTERI... Complete Current Medications Medications (Trade) Dose Ordered Sig/Genoveva Route PRN Reason Start Time Stop Time Status Last Admin Dose Admin Acetaminophen (Tylenol) 650 mg Q6H PRN ORAL Mild Pain/Temp > 100.5 07/13/19 01:36 08/03/19 01:35 Albuterol/ Ipratropium (Albuterol/ Ipratropium) 3 ml Q4HRT PRN HHN sob 07/13/19 11:00 07/18/19 10:59 Cefepime HCl 1 gm/ Dextrose 55 ml @ 110 mls/hr Q24H IVPB 07/13/19 21:00 07/16/19 20:59 07/13/19 20:36 Chlorhexidine Gluconate (Alondra-Hex 2%) 1 applic DAILY@2000 TOPIC 07/13/19 20:00 08/04/19 19:59 07/13/19 20:35 Dextrose (Dextrose 50%) 25 ml Q30M PRN IV Hypoglycemia 07/13/19 01:30 08/11/19 11:59 Dextrose (Dextrose 50%) 50 ml Q30M PRN IV Hypoglycemia 07/13/19 01:30 08/11/19 11:59 Finasteride (Proscar) 5 mg DAILY ORAL 07/14/19 09:00 08/13/19 08:59 07/14/19 08:42 Hydralazine HCl (Apresoline) 10 mg Q4H PRN IV bp over 160 syst 07/13/19 01:38 08/05/19 01:37 Hydrocortisone (Solu-CORTEF) 100 mg EVERY 12 HOURS IV 07/13/19 21:00 08/04/19 14:29 07/14/19 08:41 Insulin Aspart (NovoLOG) Q6HR SUBQ 07/13/19 12:00 08/11/19 16:29 07/14/19 06:21 Metronidazole 100 ml @ 100 mls/hr Q12HR IVPB 07/13/19 09:00 07/18/19 20:59 07/14/19 08:42 Nitroglycerin (Ntg) 1 patch Q24H TDERMAL 07/13/19 12:30 08/05/19 12:29 07/13/19 11:59 Pantoprazole (Protonix) 40 mg Q12HR IV 07/13/19 09:00 08/04/19 11:14 07/14/19 08:41 Promethazine HCl/ Codeine (Phenergan with Codeine) 5 ml Q4H PRN ORAL For Cough 07/13/19 01:41 08/03/19 01:40 Tamsulosin HCl (Flomax) 0.4 mg BEDTIME ORAL 07/13/19 21:00 08/12/19 20:59 07/13/19 20:36 Laboratory Tests 07/14/19 04:05: White Blood Count 13.2H, Red Blood Count 3.55L, Hemoglobin 10.0L, Hematocrit 30.3L, Mean Corpuscular Volume 85, Mean Corpuscular Hemoglobin 28.1, Mean Corpuscular Hemoglobin Concent 33.0, Red Cell Distribution Width 15.7H, Platelet Count 153, Mean Platelet Volume 7.0, Neutrophils (%) (Auto) , Lymphocytes (%) (Auto) , Monocytes (%) (Auto) , Eosinophils (%) (Auto) , Basophils (%) (Auto) , Differential Total Cells Counted 100, Neutrophils % ( Manual) 87H, Lymphocytes % (Manual) 6L, Monocytes % (Manual) 6, Eosinophils % ( Manual) 1, Basophils % (Manual) 0, Band Neutrophils 0, Platelet Estimate Adequate, Platelet Morphology Normal, Hypochromasia 1+, Anisocytosis 1+, Sodium Level 148H, Potassium Level 3.6, Chloride Level 111H, Carbon Dioxide Level 36H, Anion Gap 1L, Blood Urea Nitrogen 31H, Creatinine 0.8, Estimat Glomerular Filtration Rate , Glucose Level 250H, Uric Acid 4.4, Calcium Level 8.0L, Phosphorus Level 2.5, Magnesium Level 1.9, Total Bilirubin 0.4, Aspartate Amino Transf (AST/SGOT) 15, Alanine Aminotransferase (ALT/SGPT) 73, Alkaline Phosphatase 79, C-Reactive Protein, Quantitative 0.8, Pro-B-Type Natriuretic Peptide 2759H, Total Protein 5.8L, Albumin 2.3L, Globulin 3.5, Albumin/Globulin Ratio 0.7L Height (Feet): 5 Height (Inches): 8.00 Weight (Pounds): 170 Objective exam stable nixon indwelling urine slightly blood-tinged CT A/P (07/12) noted Clayton Callejas MD Jul 14, 2019 09:03
--- NOTE | 2019-07-14 09:30 | NUR ---
NURSE NOTES: The patient is stable without acute distress or shortness of breath. Will continue plan of care.
--- NOTE | 2019-07-14 09:44 | Pulmonology Progress Note ---
Assessment/Plan Assessment/Plan ASSESSMENT shock s/p bradycardic arrest with successful resuscitation Acute hypoxemic respiratory failure requiring intubation, s/p extubation 07/11 Elevated troponin/NSTEMI likely due to cardiac arrest Sepsis Probable UTI Aspiration pneumonia versus pneumonitis Left hydronephrosis with obstructive uropathy Acute kidney injury-resolved Dehydration Hyponatremia Dysphagia feeding by G-tube Diabetes mellitus Parkinson disease Anemia PLAN OF CARE [facility] s/p extubation 07/11 O2 titrate to keep sat above 90%, HHN CXR 07/13 - > Improving pulmonary venous congestion with unchanged small left pleural effusion and slight worsening of left basilar infiltrate, indeterminate between atelectasis and pneumonia Venous Duplex negative VQ scan with low prob of PE abx as per ID monitor h/d status - improved; off any AV blocking agents cardio follows ECHO with pEF 60% and RVSP of 32 on stress dose of steroids, taper IVF, monitor renal parameters, correct lytes prn calcium WNL if corrected for low albumin / as per nephro explanation renal US+mod L hydro CT A/P Moderate left hydroureteronephrosis secondary to a 1.5 cm left mid to distal ureter stone. Multiple nonobstructive stones within the right kidney. Thickening of the wall the urinary bladder consistent with cystitis. Juan catheter in good position. 10 x 7 cm left inguinal hernia containing bowel. No evidence of obstruction. Correlate clinically. Arterial vascular disease Anasarca. Trace left pleural effusion. Bilateral posterior basal atelectasis. Cardiomegaly. Degenerative changes of the spine as described above. urologist and nephro follows GTF, asp precautions BS management with SSI case discussed and evaluated by supervising physician Subjective Allergies: Coded Allergies: PENICILLINS (Verified Allergy, Unknown, 07/04/19) Subjective extubated 07/11, transferred to [facility] leukocytosis, mild, persists - probably due to shock dose of steroids, started in ICU /tapering pulse ox stable on O2 via NC CT scan A/P noted Objective Last 24 Hour Vital Signs Date Time Temp Pulse Resp B/P (MAP) Pulse Ox O2 Delivery O2 Flow Rate FiO2 07/14/19 08:00 98.2 63 22 159/79 (105) 99 07/14/19 07:45 65 20 100 Nasal Cannula 2.0 28 07/14/19 07:45 100 Nasal Cannula 2.0 28 07/14/19 04:00 68 07/14/19 04:00 98.0 63 18 142/64 (90) 99 07/14/19 04:00 Nasal Cannula 2.0 Nasal Cannula 2.0 07/14/19 00:00 98.4 72 19 135/71 (92) 97 07/14/19 00:00 Nasal Cannula 2.0 Nasal Cannula 2.0 07/14/19 00:00 68 07/13/19 20:00 67 07/13/19 20:00 98.0 69 21 140/75 (96) 96 07/13/19 20:00 Nasal Cannula 2.0 Nasal Cannula 2.0 07/13/19 19:25 100 Nasal Cannula 2.0 28 07/13/19 16:00 Nasal Cannula 2.0 Nasal Cannula 2.0 07/13/19 15:55 65 07/13/19 15:47 98.1 70 18 154/83 (106) 99 07/13/19 12:00 Nasal Cannula 2.0 Nasal Cannula 2.0 Nasal Cannula 2.0 07/13/19 11:59 154/90 07/13/19 11:58 98.8 75 16 154/90 (111) 98 07/13/19 11:39 68 Intake and Output 07/13/19 07/14/19 19:00 07:00 Intake Total 1270 ml 875 ml Output Total 550 ml 800 ml Balance 720 ml 75 ml Free Water 100 ml IV Total 400 ml 155 ml Tube Feeding 720 ml 720 ml Other 50 ml Output Urine Total 550 ml 800 ml Objective General Appearance: no acute distress HEENT: normocephalic, atraumatic, anicteric Respiratory/Chest: lungs clear, no accessory muscle use Cardiovascular: normal rate Abdomen: normal bowel sounds, non distended, G tube Extremities: no edema, pedal pulses normal Neurologic/Psychiatric: abnormal gait Musculoskeletal: atrophy Microbiology Date/Time Source Procedure Growth Status 07/11/19 12:00 Blood Blood Culture - Preliminary NO GROWTH AFTER 48 HOURS Resulted 07/11/19 12:00 Blood Blood Culture - Preliminary NO GROWTH AFTER 48 HOURS Resulted 07/11/19 21:20 Urine,Clean Catch Urine Culture - Final NO GROWTH AFTER 48 HOURS Complete Laboratory Tests 07/14/19 04:05: White Blood Count 13.2H, Red Blood Count 3.55L, Hemoglobin 10.0L, Hematocrit 30.3L, Mean Corpuscular Volume 85, Mean Corpuscular Hemoglobin 28.1, Mean Corpuscular Hemoglobin Concent 33.0, Red Cell Distribution Width 15.7H, Platelet Count 153, Mean Platelet Volume 7.0, Neutrophils (%) (Auto) , Lymphocytes (%) (Auto) , Monocytes (%) (Auto) , Eosinophils (%) (Auto) , Basophils (%) (Auto) , Differential Total Cells Counted 100, Neutrophils % ( Manual) 87H, Lymphocytes % (Manual) 6L, Monocytes % (Manual) 6, Eosinophils % ( Manual) 1, Basophils % (Manual) 0, Band Neutrophils 0, Platelet Estimate Adequate, Platelet Morphology Normal, Hypochromasia 1+, Anisocytosis 1+, Sodium Level 148H, Potassium Level 3.6, Chloride Level 111H, Carbon Dioxide Level 36H, Anion Gap 1L, Blood Urea Nitrogen 31H, Creatinine 0.8, Estimat Glomerular Filtration Rate , Glucose Level 250H, Uric Acid 4.4, Calcium Level 8.0L, Phosphorus Level 2.5, Magnesium Level 1.9, Total Bilirubin 0.4, Aspartate Amino Transf (AST/SGOT) 15, Alanine Aminotransferase (ALT/SGPT) 73, Alkaline Phosphatase 79, C-Reactive Protein, Quantitative 0.8, Pro-B-Type Natriuretic Peptide 2759H, Total Protein 5.8L, Albumin 2.3L, Globulin 3.5, Albumin/Globulin Ratio 0.7L Current Medications Medications (Trade) Dose Ordered Sig/Genoveva Route PRN Reason Start Time Stop Time Status Last Admin Dose Admin Acetaminophen (Tylenol) 650 mg Q6H PRN ORAL Mild Pain/Temp > 100.5 07/13/19 01:36 08/03/19 01:35 Albuterol/ Ipratropium (Albuterol/ Ipratropium) 3 ml Q4HRT PRN HHN sob 07/13/19 11:00 07/18/19 10:59 Cefepime HCl 1 gm/ Dextrose 55 ml @ 110 mls/hr Q24H IVPB 07/13/19 21:00 07/16/19 20:59 07/13/19 20:36 Chlorhexidine Gluconate (Alondra-Hex 2%) 1 applic DAILY@2000 TOPIC 07/13/19 20:00 08/04/19 19:59 07/13/19 20:35 Dextrose (Dextrose 50%) 25 ml Q30M PRN IV Hypoglycemia 07/13/19 01:30 08/11/19 11:59 Dextrose (Dextrose 50%) 50 ml Q30M PRN IV Hypoglycemia 07/13/19 01:30 08/11/19 11:59 Finasteride (Proscar) 5 mg DAILY ORAL 07/14/19 09:00 08/13/19 08:59 07/14/19 08:42 Hydralazine HCl (Apresoline) 10 mg Q4H PRN IV bp over 160 syst 07/13/19 01:38 08/05/19 01:37 Hydrocortisone (Solu-CORTEF) 100 mg EVERY 12 HOURS IV 07/13/19 21:00 08/04/19 14:29 07/14/19 08:41 Insulin Aspart (NovoLOG) Q6HR SUBQ 07/13/19 12:00 08/11/19 16:29 07/14/19 06:21 Metronidazole 100 ml @ 100 mls/hr Q12HR IVPB 07/13/19 09:00 07/18/19 20:59 07/14/19 08:42 Nitroglycerin (Ntg) 1 patch Q24H TDERMAL 07/13/19 12:30 08/05/19 12:29 07/13/19 11:59 Pantoprazole (Protonix) 40 mg Q12HR IV 07/13/19 09:00 08/04/19 11:14 07/14/19 08:41 Promethazine HCl/ Codeine (Phenergan with Codeine) 5 ml Q4H PRN ORAL For Cough 07/13/19 01:41 08/03/19 01:40 Tamsulosin HCl (Flomax) 0.4 mg BEDTIME ORAL 07/13/19 21:00 08/12/19 20:59 07/13/19 20:36 Valerie Balderrama [employer] ENGINE[employer] Jul 14, 2019 09:44
--- NOTE | 2019-07-14 11:05 | NUR ---
HAND-OFF: Report given to VIRGIL Watt. The patient is resting on the bed without acute distress or shortness of breath. The patient's bed in the lowest position, call in reach, and fall and aspiration precaution reinforced. IV site intact and patent. NC 2L per order. G-tube intact and patent and running formula per order. Juan intact and drain by gravity. Endorsed plan of care.
--- NOTE | 2019-07-14 11:09 | NUR ---
NURSE NOTES: Received report from VIRGIL Elaine. Patient is resting in bed, in stable condition. No s/sx of SOB, breathing is even and unlabored, on 2LNC. Denies any presence of pain or discomfort at this time. Bed is in lowest position, brakes engaged. call light is kept within easy reach. Will continue to monitor patient.
[2019-07-14 12:00] VITALS: BP 152/83
--- NOTE | 2019-07-14 12:19 | Nephrology Progress Note ---
Assessment/Plan Problem List: (1) RIA (acute kidney injury) (2) Cardiac arrest with successful resuscitation (3) Respiratory failure with hypoxia (4) Hydronephrosis Assessment patient have Ria due to Low BP and s/p arrest elevated liver enzymes for same reason others: 1. Acute hypoxemic respiratory failure. 2. Hypotension possible sepsis. 3. Diabetes type 2. 4. Parkinson disease. 5. Hypercholesterolemia. 6. EjFx 65% reported 7. Dysphagia. 8. Benign prostatic hypertrophy. Plan lasix 20 one dose Now extubated 2/ Nitro- Phos , K , Mag supplement as needed keep BP above 100 syst Pulm support monitor renal parameters discussed with RN VALENTINA: Moderate left hydronephrosis. Juan catheter. Echogenic right kidney. Suspected medical renal disease. Subjective ROS Limited/Unobtainable: No Constitutional: Reports: malaise, weakness Objective Objective Last 24 Hour Vital Signs Date Time Temp Pulse Resp B/P (MAP) Pulse Ox O2 Delivery O2 Flow Rate FiO2 07/14/19 12:00 98.7 71 20 152/83 (106) 99 07/14/19 12:00 Nasal Cannula 2.0 Nasal Cannula 2.0 07/14/19 09:00 Nasal Cannula 2.0 Nasal Cannula 2.0 07/14/19 08:00 98.2 63 22 159/79 (105) 99 07/14/19 08:00 59 07/14/19 07:45 65 20 100 Nasal Cannula 2.0 28 07/14/19 07:45 100 Nasal Cannula 2.0 28 07/14/19 04:00 68 07/14/19 04:00 98.0 63 18 142/64 (90) 99 07/14/19 04:00 Nasal Cannula 2.0 Nasal Cannula 2.0 07/14/19 00:00 98.4 72 19 135/71 (92) 97 07/14/19 00:00 Nasal Cannula 2.0 Nasal Cannula 2.0 07/14/19 00:00 68 07/13/19 20:00 67 07/13/19 20:00 98.0 69 21 140/75 (96) 96 07/13/19 20:00 Nasal Cannula 2.0 Nasal Cannula 2.0 07/13/19 19:25 100 Nasal Cannula 2.0 28 07/13/19 16:00 Nasal Cannula 2.0 Nasal Cannula 2.0 07/13/19 15:55 65 07/13/19 15:47 98.1 70 18 154/83 (106) 99 Intake and Output 07/13/19 07/14/19 19:00 07:00 Intake Total 1270 ml 875 ml Output Total 550 ml 800 ml Balance 720 ml 75 ml Free Water 100 ml IV Total 400 ml 155 ml Tube Feeding 720 ml 720 ml Other 50 ml Output Urine Total 550 ml 800 ml Laboratory Tests 07/14/19 04:05: White Blood Count 13.2H, Red Blood Count 3.55L, Hemoglobin 10.0L, Hematocrit 30.3L, Mean Corpuscular Volume 85, Mean Corpuscular Hemoglobin 28.1, Mean Corpuscular Hemoglobin Concent 33.0, Red Cell Distribution Width 15.7H, Platelet Count 153, Mean Platelet Volume 7.0, Neutrophils (%) (Auto) , Lymphocytes (%) (Auto) , Monocytes (%) (Auto) , Eosinophils (%) (Auto) , Basophils (%) (Auto) , Differential Total Cells Counted 100, Neutrophils % ( Manual) 87H, Lymphocytes % (Manual) 6L, Monocytes % (Manual) 6, Eosinophils % ( Manual) 1, Basophils % (Manual) 0, Band Neutrophils 0, Platelet Estimate Adequate, Platelet Morphology Normal, Hypochromasia 1+, Anisocytosis 1+, Sodium Level 148H, Potassium Level 3.6, Chloride Level 111H, Carbon Dioxide Level 36H, Anion Gap 1L, Blood Urea Nitrogen 31H, Creatinine 0.8, Estimat Glomerular Filtration Rate , Glucose Level 250H, Uric Acid 4.4, Calcium Level 8.0L, Phosphorus Level 2.5, Magnesium Level 1.9, Total Bilirubin 0.4, Aspartate Amino Transf (AST/SGOT) 15, Alanine Aminotransferase (ALT/SGPT) 73, Alkaline Phosphatase 79, C-Reactive Protein, Quantitative 0.8, Pro-B-Type Natriuretic Peptide 2759H, Total Protein 5.8L, Albumin 2.3L, Globulin 3.5, Albumin/Globulin Ratio 0.7L Height (Feet): 5 Height (Inches): 8.00 Weight (Pounds): 170 General Appearance: mild distress Cardiovascular: normal rate Respiratory/Chest: decreased breath sounds Abdomen: distended Objective no change Oskar Mohr MD Jul 14, 2019 12:19
[2019-07-14] MEDS: Nitroglycerin Patch 0.4mg TDERMAL SCH (12:21)
--- NOTE | 2019-07-14 14:05 | Internal Med Progress Note ---
Subjective Date of Service: Jul 14, 2019 Physician Name Shukri Glover Attending Physician Rayshawn Woods MD Current Medications Medications (Trade) Dose Ordered Sig/Genoveva Route PRN Reason Start Time Stop Time Status Last Admin Dose Admin Acetaminophen (Tylenol) 650 mg Q6H PRN ORAL Mild Pain/Temp > 100.5 07/13/19 01:36 08/03/19 01:35 Albuterol/ Ipratropium (Albuterol/ Ipratropium) 3 ml Q4HRT PRN HHN sob 07/13/19 11:00 07/18/19 10:59 Cefepime HCl 1 gm/ Dextrose 55 ml @ 110 mls/hr Q24H IVPB 07/13/19 21:00 07/16/19 20:59 07/13/19 20:36 Chlorhexidine Gluconate (Alondra-Hex 2%) 1 applic DAILY@2000 TOPIC 07/13/19 20:00 08/04/19 19:59 07/13/19 20:35 Dextrose (Dextrose 50%) 25 ml Q30M PRN IV Hypoglycemia 07/13/19 01:30 08/11/19 11:59 Dextrose (Dextrose 50%) 50 ml Q30M PRN IV Hypoglycemia 07/13/19 01:30 08/11/19 11:59 Finasteride (Proscar) 5 mg DAILY ORAL 07/14/19 09:00 08/13/19 08:59 07/14/19 08:42 Furosemide (Lasix) 20 mg ONCE IV 07/14/19 13:10 07/14/19 14:15 07/14/19 13:47 Hydralazine HCl (Apresoline) 10 mg Q4H PRN IV bp over 160 syst 07/13/19 01:38 08/05/19 01:37 Hydrocortisone (Solu-CORTEF) 100 mg DAILY IV 07/15/19 09:00 08/04/19 14:29 Insulin Aspart (NovoLOG) Q6HR SUBQ 07/13/19 12:00 08/11/19 16:29 07/14/19 12:21 Metronidazole 100 ml @ 100 mls/hr Q12HR IVPB 07/13/19 09:00 07/18/19 20:59 07/14/19 08:42 Nitroglycerin (Ntg) 1 patch Q24H TDERMAL 07/13/19 12:30 3/2/20 12:29 07/14/19 12:21 Pantoprazole (Protonix) 40 mg Q12HR IV 07/13/19 09:00 08/04/19 11:14 07/14/19 08:41 Potassium Chloride (K-Dur) 20 meq TWICE A DAY GT 07/14/19 13:10 08/13/19 13:09 07/14/19 13:47 Promethazine HCl/ Codeine (Phenergan with Codeine) 5 ml Q4H PRN ORAL For Cough 07/13/19 01:41 08/03/19 01:40 Tamsulosin HCl (Flomax) 0.4 mg BEDTIME ORAL 07/13/19 21:00 08/12/19 20:59 07/13/19 20:36 Allergies: Coded Allergies: PENICILLINS (Verified Allergy, Unknown, 07/04/19) ROS Limited/Unobtainable: Yes Subjective 83 YO M admitted with dyspnea, now respiratory failure. Cover for Int Med-Dr Woods. USRY. Extubated 07/11/19 Objective Last Vital Signs Date Time Temp Pulse Resp B/P (MAP) Pulse Ox O2 Delivery O2 Flow Rate FiO2 07/14/19 12:21 152/83 07/14/19 12:00 98.7 71 20 99 07/14/19 12:00 Nasal Cannula 2.0 Nasal Cannula 2.0 07/14/19 07:45 28 Laboratory Tests Test 07/14/19 04:05 White Blood Count 13.2 K/UL (4.8-10.8) H Red Blood Count 3.55 M/UL (4.70-6.10) L Hemoglobin 10.0 G/DL (14.2-18.0) L Hematocrit 30.3 % (42.0-52.0) L Mean Corpuscular Volume 85 FL (80-99) Mean Corpuscular Hemoglobin 28.1 PG (27.0-31.0) Mean Corpuscular Hemoglobin Concent 33.0 G/DL (32.0-36.0) Red Cell Distribution Width 15.7 % (11.6-14.8) H Platelet Count 153 K/UL (150-450) Mean Platelet Volume 7.0 FL (6.5-10.1) Neutrophils (%) (Auto) % (45.0-75.0) Lymphocytes (%) (Auto) % (20.0-45.0) Monocytes (%) (Auto) % (1.0-10.0) Eosinophils (%) (Auto) % (0.0-3.0) Basophils (%) (Auto) % (0.0-2.0) Differential Total Cells Counted 100 Neutrophils % (Manual) 87 % (45-75) H Lymphocytes % (Manual) 6 % (20-45) L Monocytes % (Manual) 6 % (1-10) Eosinophils % (Manual) 1 % (0-3) Basophils % (Manual) 0 % (0-2) Band Neutrophils 0 % (0-8) Platelet Estimate Adequate Platelet Morphology Normal Hypochromasia 1+ Anisocytosis 1+ Sodium Level 148 MMOL/L (136-145) H Potassium Level 3.6 MMOL/L (3.5-5.1) Chloride Level 111 MMOL/L (98-107) H Carbon Dioxide Level 36 MMOL/L (21-32) H Anion Gap 1 mmol/L (5-15) L Blood Urea Nitrogen 31 mg/dL (7-18) H Creatinine 0.8 MG/DL (0.55-1.30) Estimat Glomerular Filtration Rate mL/min (>60) Glucose Level 250 MG/DL (74-106) H Uric Acid 4.4 MG/DL (2.6-7.2) Calcium Level 8.0 MG/DL (8.5-10.1) L Phosphorus Level 2.5 MG/DL (2.5-4.9) Magnesium Level 1.9 MG/DL (1.8-2.4) Total Bilirubin 0.4 MG/DL (0.2-1.0) Aspartate Amino Transf (AST/SGOT) 15 U/L (15-37) Alanine Aminotransferase (ALT/SGPT) 73 U/L (12-78) Alkaline Phosphatase 79 U/L (46-116) C-Reactive Protein, Quantitative 0.8 mg/dL (0.00-0.90) Pro-B-Type Natriuretic Peptide 2759 pg/mL (0-125) H Total Protein 5.8 G/DL (6.4-8.2) L Albumin 2.3 G/DL (3.4-5.0) L Globulin 3.5 g/dL Albumin/Globulin Ratio 0.7 (1.0-2.7) L Microbiology Date/Time Source Procedure Growth Status 07/11/19 21:20 Urine,Clean Catch Urine Culture - Final NO GROWTH AFTER 48 HOURS Complete Intake and Output 07/13/19 07/14/19 19:00 07:00 Intake Total 1270 ml 875 ml Output Total 550 ml 800 ml Balance 720 ml 75 ml Free Water 100 ml IV Total 400 ml 155 ml Tube Feeding 720 ml 720 ml Other 50 ml Output Urine Total 550 ml 800 ml Objective PHYSICAL EXAMINATION: GENERAL: The patient is a well-developed and well-nourished male, in moderate respiratory distress. HEENT: Eyes, pupils are equal and responsive to light and accommodation. Extraocular movements are intact. NECK: Supple without lymphadenopathy. CHEST: nasal canula; Coarse breath sounds bilaterally with expiratory wheezes. Otherwise, without crackles. ABDOMINAL: Soft, nontender, and nondistended. Positive bowel sounds. No evidence of hepatosplenomegaly. Currently, no rebound or guarding noted. CARDIOVASCULAR: Tachycardic. Regular rhythm. S1 and S2 are normal without murmurs, rubs, or gallops. GENITOURINARY: Deferred. NEUROLOGICAL: Cranial nerves II to XII are grossly intact without focal deficits. EXTREMITIES: Negative for clubbing, cyanosis, or edema. Assessment/Plan Assessment/Plan ASSESSMENT: This is an 83-year-old male. 1. Dyspnea. 2. Respiratory distress. 3. Diabetes type 2. 4. Parkinson disease. 5. Hypercholesterolemia. 6. Dilated cardiomyopathy. 7. Dysphagia. 8. Benign prostatic hypertrophy. 9. Left Ureteral stone/hydronephrosis TREATMENT: 1. Dyspnea/respiratory distress. A Pulmonary consultation has been obtained with Dr. Kathryn Lopez. The patient is currently extubated. ABX=vanco, flagyl and cefepime intravenously. We will follow recommendations of Pulmonary. 2. Diabetes type 2. 3. Hypercholesterolemia. 4. Dilated cardiomyopathy. 5. Dysphagia. The patient is status post PEG placement. 6. Hypertensive heart disease. 7. Benign prostatic hypertrophy. 8. ID=DR. Page 9. Urology = Shukri Donnelly MD Jul 14, 2019 14:05
[2019-07-14] MEDS ORDERED: Tubing IV Secondary IV ONE (14:44)
[2019-07-14 16:00] VITALS: BP 150/60
--- NOTE | 2019-07-14 19:10 | NUR ---
NURSE NOTES: Pt report received from Shukri Pedraza day shift RN. pt appears stable, sleeping in bed. pt is on manager administration showing NSR, no cardiac distress noted. pt is on 2 L NC able to sating at 96%, no acute resp distress noted. pt is on pt bed is low, locked, armed, call light within reach, bed rails up times 3. will continue to monitor.
--- NOTE | 2019-07-14 19:26 | NUR ---
HAND-OFF: Report given to VIRGIL England.
[2019-07-14 20:00] VITALS: BP 137/75
[2019-07-14] MEDS: Dyna-Hex 2% Top Sol 2oz TOPIC SCH (20:00)
[2019-07-14] MEDS: Cefepime HCl 1 GM in D5W 55 ML IVPB SCH (20:14)
[2019-07-14] MEDS: Tamsulosin 0.4mg cap ORAL SCH (20:14)
[2019-07-15] VITALS: BP 132/73
[2019-07-15 04:00] VITALS: BP 139/76
[2019-07-15 04:55] LABS: BASOPHILS % (AUTO) 0.4 % (0.0-2.0); EOSINOPHILS % (AUTO) 3.1 % (0.0-3.0); HEMATOCRIT 31.2 % (42.0-52.0); HEMOGLOBIN 10.1 G/DL (14.2-18.0); LYMPHOCYTES % (AUTO) 9.8 % (20.0-45.0); MEAN CORPUSCULAR VOLUME 86 FL (80-99); NEUTROPHILS % (AUTO) 76.8 % (45.0-75.0); PLATELET COUNT 159 K/UL (150-450); RED BLOOD COUNT 3.65 M/UL (4.70-6.10); RED CELL DISTRIBUTION WIDTH 15.7 % (11.6-14.8); WHITE BLOOD COUNT 12.8 K/UL (4.8-10.8)
[2019-07-15 05:16] LABS: ANION GAP 2 mmol/L (5-15); BLOOD UREA NITROGEN 31 mg/dL (7-18); CALCIUM 8.2 MG/DL (8.5-10.1); CARBON DIOXIDE 38 MMOL/L (21-32); CHLORIDE 109 MMOL/L (98-107); CREATININE 0.7 MG/DL (0.55-1.30); POTASSIUM 3.7 MMOL/L (3.5-5.1); SODIUM 149 MMOL/L (136-145)
[2019-07-15] MEDS: NovoLOG Insulin Flexpen SUBQ SCH ×3 (05:24→17:53)
--- NOTE | 2019-07-15 07:10 | NUR ---
HAND-OFF: Report given to MARNI Scruggs RN. Pt remains stable.
--- NOTE | 2019-07-15 07:28 | Urology Progress Note ---
Assessment/Plan Assessment/Plan: 1. Left-sided hydronephrosis, poss chronic. 2. Proteinuria. 3. Hematuria. 4. Pyuria. 5. Urinary retention. 6. BPH history. 7. Rule out neurogenic bladder. 8. Mild acute kidney injury, improved. 9. Left ureteral calculus. 10. Right renal calculi. 11. Cystitis. 12. Left inguinal hernia. monitor clinically maintain nixon hand irrigate PRN abx as ordered monitor renal fxn flomax and proscar added will consider tx of stones once more medically stabilized currently no flank pain and normal Cr voiding trial soon f/u on last blood cx Subjective Allergies: Coded Allergies: PENICILLINS (Verified Allergy, Unknown, 07/04/19) Subjective all noted, feels fair, no pain Objective Last 24 Hour Vital Signs Date Time Temp Pulse Resp B/P (MAP) Pulse Ox O2 Delivery O2 Flow Rate FiO2 07/15/19 04:00 98.5 70 19 139/76 (97) 100 07/15/19 04:00 Nasal Cannula 2.0 Nasal Cannula 2.0 07/15/19 04:00 55 07/15/19 00:00 Nasal Cannula 2.0 Nasal Cannula 2.0 07/15/19 00:00 59 07/15/19 00:00 98.2 62 18 132/73 (92) 100 07/14/19 21:00 98 Nasal Cannula 2.0 28 07/14/19 20:00 97.7 69 20 137/75 (95) 100 07/14/19 20:00 79 07/14/19 20:00 Nasal Cannula 2.0 Nasal Cannula 2.0 07/14/19 16:00 Nasal Cannula 2.0 Nasal Cannula 2.0 07/14/19 16:00 97.8 74 20 150/60 (90) 100 07/14/19 16:00 82 07/14/19 12:21 152/83 07/14/19 12:00 98.7 71 20 152/83 (106) 99 07/14/19 12:00 Nasal Cannula 2.0 Nasal Cannula 2.0 07/14/19 12:00 64 07/14/19 09:00 Nasal Cannula 2.0 Nasal Cannula 2.0 07/14/19 08:00 98.2 63 22 159/79 (105) 99 07/14/19 08:00 59 07/14/19 07:45 65 20 100 Nasal Cannula 2.0 28 07/14/19 07:45 100 Nasal Cannula 2.0 28 Intake and Output 07/14/19 07/15/19 19:00 07:00 Intake Total 1020 ml 1015 ml Output Total 1500 ml 900 ml Balance -480 ml 115 ml Free Water 100 ml 200 ml IV Total 155 ml Tube Feeding 720 ml 660 ml Blood Product 200 ml Output Urine Total 1500 ml 900 ml # Bowel Movements 2 Microbiology Date/Time Source Procedure Growth Status 07/11/19 12:00 Blood Blood Culture - Preliminary NO GROWTH AFTER 72 HOURS Resulted 07/04/19 10:15 Sputum Gram Stain - Final Complete 07/04/19 10:15 Sputum Culture - Final Nicolle Albicans Usual Respiratory Valery Complete 07/11/19 21:20 Urine,Clean Catch Urine Culture - Final NO GROWTH AFTER 48 HOURS Complete 07/04/19 00:43 Rectum - Final NO CARBAPENEM-RESISTANT ENTEROBACTERI... Complete Current Medications Medications (Trade) Dose Ordered Sig/Genoveva Route PRN Reason Start Time Stop Time Status Last Admin Dose Admin Acetaminophen (Tylenol) 650 mg Q6H PRN ORAL Mild Pain/Temp > 100.5 07/13/19 01:36 08/03/19 01:35 Albuterol/ Ipratropium (Albuterol/ Ipratropium) 3 ml Q4HRT PRN HHN sob 07/13/19 11:00 07/18/19 10:59 Cefepime HCl 1 gm/ Dextrose 55 ml @ 110 mls/hr Q24H IVPB 07/13/19 21:00 07/16/19 20:59 07/14/19 20:14 Chlorhexidine Gluconate (Alondra-Hex 2%) 1 applic DAILY@2000 TOPIC 07/13/19 20:00 08/04/19 19:59 07/13/19 20:35 Dextrose (Dextrose 50%) 25 ml Q30M PRN IV Hypoglycemia 07/13/19 01:30 08/11/19 11:59 Dextrose (Dextrose 50%) 50 ml Q30M PRN IV Hypoglycemia 07/13/19 01:30 08/11/19 11:59 Finasteride (Proscar) 5 mg DAILY ORAL 07/14/19 09:00 08/13/19 08:59 07/14/19 08:42 Hydralazine HCl (Apresoline) 10 mg Q4H PRN IV bp over 160 syst 07/13/19 01:38 08/05/19 01:37 Hydrocortisone (Solu-CORTEF) 100 mg DAILY IV 07/15/19 09:00 08/04/19 14:29 Insulin Aspart (NovoLOG) Q6HR SUBQ 07/13/19 12:00 08/11/19 16:29 07/14/19 23:05 Metronidazole 100 ml @ 100 mls/hr Q12HR IVPB 07/13/19 09:00 07/18/19 20:59 07/14/19 21:07 Nitroglycerin (Ntg) 1 patch Q24H TDERMAL 07/13/19 12:30 08/05/19 12:29 07/14/19 12:21 Pantoprazole (Protonix) 40 mg Q12HR IV 07/13/19 09:00 08/04/19 11:14 07/14/19 20:14 Potassium Chloride (K-Dur) 20 meq TWICE A DAY GT 07/14/19 13:10 08/13/19 13:09 07/14/19 17:15 Promethazine HCl/ Codeine (Phenergan with Codeine) 5 ml Q4H PRN ORAL For Cough 07/13/19 01:41 08/03/19 01:40 Tamsulosin HCl (Flomax) 0.4 mg BEDTIME ORAL 07/13/19 21:00 08/12/19 20:59 07/14/19 20:14 Laboratory Tests 07/15/19 03:20: White Blood Count 12.8H, Red Blood Count 3.65L, Hemoglobin 10.1L, Hematocrit 31.2L, Mean Corpuscular Volume 86, Mean Corpuscular Hemoglobin 27.8, Mean Corpuscular Hemoglobin Concent 32.5, Red Cell Distribution Width 15.7H, Platelet Count 159, Mean Platelet Volume 7.6, Neutrophils (%) (Auto) 76.8H, Lymphocytes (%) (Auto) 9.8L, Monocytes (%) (Auto) 10.0, Eosinophils (%) (Auto) 3.1H, Basophils (%) (Auto) 0.4, Sodium Level 149H, Potassium Level 3.7, Chloride Level 109H, Carbon Dioxide Level 38H, Anion Gap 2L, Blood Urea Nitrogen 31H, Creatinine 0.7, Estimat Glomerular Filtration Rate , Glucose Level 138#H, Calcium Level 8.2L Height (Feet): 5 Height (Inches): 8.00 Weight (Pounds): 165 Objective exam stable nixon indwelling urine slightly blood-tinged CT A/P (07/12) noted Clayton Callejas MD Jul 15, 2019 07:28
[2019-07-15 08:00] VITALS: BP 141/74
--- NOTE | 2019-07-15 08:10 | NUR ---
NURSE NOTES: received pt in the bed, awake, confused, vital signs stable, no co pain, no SOB, o2 2L via nasal canula, skin warm and dry to touch, tolerate GT feeding well, Juan catheter with yellow urine, bed in low position, call light within reach, HOB elevated.
--- NOTE | 2019-07-15 08:57 | Nephrology Progress Note ---
Assessment/Plan Problem List: (1) CARA (acute kidney injury) (2) Cardiac arrest with successful resuscitation (3) Respiratory failure with hypoxia (4) Hydronephrosis Assessment patient have Cara due to Low BP and s/p arrest elevated liver enzymes for same reason others: 1. Acute hypoxemic respiratory failure. 2. Hypotension possible sepsis. 3. Diabetes type 2. 4. Parkinson disease. 5. Hypercholesterolemia. 6. EjFx 65% reported 7. Dysphagia. 8. Benign prostatic hypertrophy. Plan extubated / Nitro- Phos , K , Mag supplement as needed keep BP above 100 syst Pulm support monitor renal parameters discussed with RN VALENTINA: Moderate left hydronephrosis. Juan catheter. Echogenic right kidney. Suspected medical renal disease. Subjective ROS Limited/Unobtainable: No Constitutional: Reports: malaise, weakness Objective Objective Last 24 Hour Vital Signs Date Time Temp Pulse Resp B/P (MAP) Pulse Ox O2 Delivery O2 Flow Rate FiO2 07/15/19 08:01 Nasal Cannula 2.0 Nasal Cannula 2.0 07/15/19 08:00 98.1 65 19 141/74 (96) 99 07/15/19 04:00 98.5 70 19 139/76 (97) 100 07/15/19 04:00 Nasal Cannula 2.0 Nasal Cannula 2.0 07/15/19 04:00 55 07/15/19 00:00 Nasal Cannula 2.0 Nasal Cannula 2.0 07/15/19 00:00 59 07/15/19 00:00 98.2 62 18 132/73 (92) 100 07/14/19 21:00 98 Nasal Cannula 2.0 28 07/14/19 20:00 97.7 69 20 137/75 (95) 100 07/14/19 20:00 79 07/14/19 20:00 Nasal Cannula 2.0 Nasal Cannula 2.0 07/14/19 16:00 Nasal Cannula 2.0 Nasal Cannula 2.0 07/14/19 16:00 97.8 74 20 150/60 (90) 100 07/14/19 16:00 82 07/14/19 12:21 152/83 07/14/19 12:00 98.7 71 20 152/83 (106) 99 07/14/19 12:00 Nasal Cannula 2.0 Nasal Cannula 2.0 07/14/19 12:00 64 07/14/19 09:00 Nasal Cannula 2.0 Nasal Cannula 2.0 Intake and Output 07/14/19 07/15/19 19:00 07:00 Intake Total 1020 ml 1015 ml Output Total 1500 ml 900 ml Balance -480 ml 115 ml Free Water 100 ml 200 ml IV Total 155 ml Tube Feeding 720 ml 660 ml Blood Product 200 ml Output Urine Total 1500 ml 900 ml # Bowel Movements 2 Current Medications Medications (Trade) Dose Ordered Sig/Genoveva Route PRN Reason Start Time Stop Time Status Last Admin Dose Admin Acetaminophen (Tylenol) 650 mg Q6H PRN ORAL Mild Pain/Temp > 100.5 07/13/19 01:36 08/03/19 01:35 Albuterol/ Ipratropium (Albuterol/ Ipratropium) 3 ml Q4HRT PRN HHN sob 07/13/19 11:00 07/18/19 10:59 Cefepime HCl 1 gm/ Dextrose 55 ml @ 110 mls/hr Q24H IVPB 07/13/19 21:00 07/16/19 20:59 07/14/19 20:14 Chlorhexidine Gluconate (Alondra-Hex 2%) 1 applic DAILY@2000 TOPIC 07/13/19 20:00 08/04/19 19:59 07/13/19 20:35 Dextrose (Dextrose 50%) 25 ml Q30M PRN IV Hypoglycemia 07/13/19 01:30 08/11/19 11:59 Dextrose (Dextrose 50%) 50 ml Q30M PRN IV Hypoglycemia 07/13/19 01:30 08/11/19 11:59 Finasteride (Proscar) 5 mg DAILY ORAL 07/14/19 09:00 08/13/19 08:59 07/14/19 08:42 Hydralazine HCl (Apresoline) 10 mg Q4H PRN IV bp over 160 syst 07/13/19 01:38 08/05/19 01:37 Hydrocortisone (Solu-CORTEF) 100 mg DAILY IV 07/15/19 09:00 08/04/19 14:29 Insulin Aspart (NovoLOG) Q6HR SUBQ 07/13/19 12:00 08/11/19 16:29 07/14/19 23:05 Metronidazole 100 ml @ 100 mls/hr Q12HR IVPB 07/13/19 09:00 07/18/19 20:59 07/14/19 21:07 Nitroglycerin (Ntg) 1 patch Q24H TDERMAL 07/13/19 12:30 08/05/19 12:29 07/14/19 12:21 Pantoprazole (Protonix) 40 mg Q12HR IV 07/13/19 09:00 08/04/19 11:14 07/14/19 20:14 Potassium Chloride (K-Dur) 20 meq TWICE A DAY GT 07/14/19 13:10 08/13/19 13:09 07/14/19 17:15 Promethazine HCl/ Codeine (Phenergan with Codeine) 5 ml Q4H PRN ORAL For Cough 07/13/19 01:41 08/03/19 01:40 Tamsulosin HCl (Flomax) 0.4 mg BEDTIME ORAL 07/13/19 21:00 08/12/19 20:59 07/14/19 20:14 Laboratory Tests 07/15/19 03:20: White Blood Count 12.8H, Red Blood Count 3.65L, Hemoglobin 10.1L, Hematocrit 31.2L, Mean Corpuscular Volume 86, Mean Corpuscular Hemoglobin 27.8, Mean Corpuscular Hemoglobin Concent 32.5, Red Cell Distribution Width 15.7H, Platelet Count 159, Mean Platelet Volume 7.6, Neutrophils (%) (Auto) 76.8H, Lymphocytes (%) (Auto) 9.8L, Monocytes (%) (Auto) 10.0, Eosinophils (%) (Auto) 3.1H, Basophils (%) (Auto) 0.4, Sodium Level 149H, Potassium Level 3.7, Chloride Level 109H, Carbon Dioxide Level 38H, Anion Gap 2L, Blood Urea Nitrogen 31H, Creatinine 0.7, Estimat Glomerular Filtration Rate , Glucose Level 138#H, Calcium Level 8.2L Height (Feet): 5 Height (Inches): 8.00 Weight (Pounds): 165 General Appearance: no apparent distress, lethargic, confused Cardiovascular: normal rate Respiratory/Chest: decreased breath sounds Abdomen: soft Objective no change Oskar Mohr MD Jul 15, 2019 08:57
[2019-07-15] MEDS: Hydrocortisone 100mg Inj IV SCH (10:02)
[2019-07-15] MEDS: Pantoprazole Inj IV SCH ×2 (10:03→20:34)
--- NOTE | 2019-07-15 10:17 | NUR ---
RADIOLOGY DEPT., CHEST X-RAY DONE.-P.DYE
--- NOTE | 2019-07-15 10:21 | Cardiac Electrophysiology PN ---
Assessment/Plan Assessment/Plan 1. Status post bradycardic arrest with heart rate in the 20s. Off any sinus node or AV destinee blocking agents. 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 The first two troponins on admission were negative. 5 follow up troponins were mildly elevated likely due to Code. No further critical hillary episode on tele. Lowest HR 58 2. NSTEMI. Due to arrest 3. Respiratory failure. D. Dimer positive. VQ scan pre code was low probability. Extubated 07/11/19 3. Hypotension. Improved with IV fluid 5. Dehydration and hyperatremia, resolved 6. Dysphagia, status post PEG 7. Diabetes. 8. Benign prostatic hypertrophy.SKYLER Callejas. S/P CT abdomen that showed Left hydronephrosis 9. Full code. CARI RN Subjective Subjective PEG feeding ongoing. No bradycardia. Objective Last 24 Hour Vital Signs Date Time Temp Pulse Resp B/P (MAP) Pulse Ox O2 Delivery O2 Flow Rate FiO2 07/15/19 08:01 Nasal Cannula 2.0 Nasal Cannula 2.0 07/15/19 08:00 98.1 65 19 141/74 (96) 99 07/15/19 04:00 98.5 70 19 139/76 (97) 100 07/15/19 04:00 Nasal Cannula 2.0 Nasal Cannula 2.0 07/15/19 04:00 55 07/15/19 00:00 Nasal Cannula 2.0 Nasal Cannula 2.0 07/15/19 00:00 59 07/15/19 00:00 98.2 62 18 132/73 (92) 100 07/14/19 21:00 98 Nasal Cannula 2.0 28 07/14/19 20:00 97.7 69 20 137/75 (95) 100 07/14/19 20:00 79 07/14/19 20:00 Nasal Cannula 2.0 Nasal Cannula 2.0 07/14/19 16:00 Nasal Cannula 2.0 Nasal Cannula 2.0 07/14/19 16:00 97.8 74 20 150/60 (90) 100 07/14/19 16:00 82 07/14/19 12:21 152/83 07/14/19 12:00 98.7 71 20 152/83 (106) 99 07/14/19 12:00 Nasal Cannula 2.0 Nasal Cannula 2.0 07/14/19 12:00 64 Intake and Output 07/14/19 07/15/19 19:00 07:00 Intake Total 1020 ml 1015 ml Output Total 1500 ml 900 ml Balance -480 ml 115 ml Free Water 100 ml 200 ml IV Total 155 ml Tube Feeding 720 ml 660 ml Blood Product 200 ml Output Urine Total 1500 ml 900 ml # Bowel Movements 2 Laboratory Tests Test 07/15/19 03:20 White Blood Count 12.8 K/UL (4.8-10.8) H Red Blood Count 3.65 M/UL (4.70-6.10) L Hemoglobin 10.1 G/DL (14.2-18.0) L Hematocrit 31.2 % (42.0-52.0) L Mean Corpuscular Volume 86 FL (80-99) Mean Corpuscular Hemoglobin 27.8 PG (27.0-31.0) Mean Corpuscular Hemoglobin Concent 32.5 G/DL (32.0-36.0) Red Cell Distribution Width 15.7 % (11.6-14.8) H Platelet Count 159 K/UL (150-450) Mean Platelet Volume 7.6 FL (6.5-10.1) Neutrophils (%) (Auto) 76.8 % (45.0-75.0) H Lymphocytes (%) (Auto) 9.8 % (20.0-45.0) L Monocytes (%) (Auto) 10.0 % (1.0-10.0) Eosinophils (%) (Auto) 3.1 % (0.0-3.0) H Basophils (%) (Auto) 0.4 % (0.0-2.0) Sodium Level 149 MMOL/L (136-145) H Potassium Level 3.7 MMOL/L (3.5-5.1) Chloride Level 109 MMOL/L (98-107) H Carbon Dioxide Level 38 MMOL/L (21-32) H Anion Gap 2 mmol/L (5-15) L Blood Urea Nitrogen 31 mg/dL (7-18) H Creatinine 0.7 MG/DL (0.55-1.30) Estimat Glomerular Filtration Rate mL/min (>60) Glucose Level 138 MG/DL (74-106) #H Calcium Level 8.2 MG/DL (8.5-10.1) L Objective HEAD AND NECK: Mild JVD. LUNGS: Decreased breath sounds. CARDIOVASCULAR: RRR. No G/R/M ABDOMEN: Status post G-tube. EXTREMITIES: No pitting edema. Enio Santos MD Jul 15, 2019 10:21
--- NOTE | 2019-07-15 10:36 | Infectious Diseases Prog Note ---
Assessment/Plan Assessment/Plan Assessment: Shock, SP s/p cardiac arrest 07/05 Obstruct uropathy, L hydrouretenephrosis -07/12 CT abd/p: -07/12 CT abd/p: Moderate left hydroureteronephrosis secondary to a 1.5 cm left mid to distal ureter stone. Multiple nonobstructive stones within the right kidney. Thickening of the wall the urinary bladder consistent with cystitis. Juan catheter in good position. 10 x 7 cm left inguinal hernia containing bowel. No evidence of obstruction.Trace left pleural effusion. Bilateral posterior basal atelectasis. Sepsis, Sp Probable UTI Acute hypoxic respiratory failure, intubated 07/05; extubated 07/11 Aspiration pneumonia vs pneumonitis Gram positive bacteremia- contaminant -07/13 CXR: Improving pulmonary venous congestion with unchanged small left pleural effusion and slight worsening of left basilar infiltrate, indeterminate between atelectasis and pneumonia -07/11 u/a wbc 2-4, nit neg, leuk +3; ucx Neg Bcx NTD -07/06 Bcx Neg -07/05 CXR:Mild CHF -u/a wbc 5-10, nit neg, leuk +2; ucx Neg -Bcx 06/08 dipteriods -sp cx usual resp rupert -CXR: No acute process -influenza sc neg -v. duplex: no DVT -V/q scan:Findings are deemed low probability for pulmonary embolus Fever; low grade, recurrent- SP Mild leukocytosis, fluctuating CARA; improving Dm2 dysphagia s/p GT hx of PNA parkinson disease HTN bed bound NH resident Plan: -Continue empiric Cefepime #12/ and D/c Flagyl # / -07/09 SP IV Vancomycin #5 -07/04 SP Levaquin x1 -f/u cx -Monitor CBC/CMP, temperatures -aspiration precautions -GT care -Cards, nephro f/u -f/u Repeat Bcx x2 -Cdiff if diarrhea -uro f/u Thank you for this consultation. Will continue to follow along with you. Discussed with RN. Subjective Allergies: Coded Allergies: PENICILLINS (Verified Allergy, Unknown, 07/04/19) Subjective afebrile wbc improved now on SURY Objective Vital Signs Last 24 Hour Vital Signs Date Time Temp Pulse Resp B/P (MAP) Pulse Ox O2 Delivery O2 Flow Rate FiO2 07/15/19 08:01 Nasal Cannula 2.0 Nasal Cannula 2.0 07/15/19 08:00 98.1 65 19 141/74 (96) 99 07/15/19 04:00 98.5 70 19 139/76 (97) 100 07/15/19 04:00 Nasal Cannula 2.0 Nasal Cannula 2.0 07/15/19 04:00 55 07/15/19 00:00 Nasal Cannula 2.0 Nasal Cannula 2.0 07/15/19 00:00 59 07/15/19 00:00 98.2 62 18 132/73 (92) 100 07/14/19 21:00 98 Nasal Cannula 2.0 28 07/14/19 20:00 97.7 69 20 137/75 (95) 100 07/14/19 20:00 79 07/14/19 20:00 Nasal Cannula 2.0 Nasal Cannula 2.0 07/14/19 16:00 Nasal Cannula 2.0 Nasal Cannula 2.0 07/14/19 16:00 97.8 74 20 150/60 (90) 100 07/14/19 16:00 82 07/14/19 12:21 152/83 07/14/19 12:00 98.7 71 20 152/83 (106) 99 07/14/19 12:00 Nasal Cannula 2.0 Nasal Cannula 2.0 07/14/19 12:00 64 Height (Feet): 5 Height (Inches): 8.00 Weight (Pounds): 165 Objective General Appearance: cachetic, thin HEENT: normocephalic, atraumatic Neck: non-tender, normal alignment Respiratory/Chest: chest wall non-tender, lungs clear Cardiovascular/Chest: normal peripheral pulses, normal rate Abdomen: normal bowel sounds, non tender, hyperactive bowel sounds Extremities: normal range of motion Skin Exam: normal pigmentation Laboratory Tests Test 07/15/19 03:20 White Blood Count 12.8 K/UL (4.8-10.8) H Red Blood Count 3.65 M/UL (4.70-6.10) L Hemoglobin 10.1 G/DL (14.2-18.0) L Hematocrit 31.2 % (42.0-52.0) L Mean Corpuscular Volume 86 FL (80-99) Mean Corpuscular Hemoglobin 27.8 PG (27.0-31.0) Mean Corpuscular Hemoglobin Concent 32.5 G/DL (32.0-36.0) Red Cell Distribution Width 15.7 % (11.6-14.8) H Platelet Count 159 K/UL (150-450) Mean Platelet Volume 7.6 FL (6.5-10.1) Neutrophils (%) (Auto) 76.8 % (45.0-75.0) H Lymphocytes (%) (Auto) 9.8 % (20.0-45.0) L Monocytes (%) (Auto) 10.0 % (1.0-10.0) Eosinophils (%) (Auto) 3.1 % (0.0-3.0) H Basophils (%) (Auto) 0.4 % (0.0-2.0) Sodium Level 149 MMOL/L (136-145) H Potassium Level 3.7 MMOL/L (3.5-5.1) Chloride Level 109 MMOL/L (98-107) H Carbon Dioxide Level 38 MMOL/L (21-32) H Anion Gap 2 mmol/L (5-15) L Blood Urea Nitrogen 31 mg/dL (7-18) H Creatinine 0.7 MG/DL (0.55-1.30) Estimat Glomerular Filtration Rate mL/min (>60) Glucose Level 138 MG/DL (74-106) #H Calcium Level 8.2 MG/DL (8.5-10.1) L Current Medications Medications (Trade) Dose Ordered Sig/Genoveva Route PRN Reason Start Time Stop Time Status Last Admin Dose Admin Acetaminophen (Tylenol) 650 mg Q6H PRN ORAL Mild Pain/Temp > 100.5 07/13/19 01:36 08/03/19 01:35 Albuterol/ Ipratropium (Albuterol/ Ipratropium) 3 ml Q4HRT PRN HHN sob 07/13/19 11:00 07/18/19 10:59 Cefepime HCl 1 gm/ Dextrose 55 ml @ 110 mls/hr Q24H IVPB 07/13/19 21:00 07/16/19 20:59 07/14/19 20:14 Chlorhexidine Gluconate (Alondra-Hex 2%) 1 applic DAILY@2000 TOPIC 07/13/19 20:00 08/04/19 19:59 07/13/19 20:35 Dextrose (Dextrose 50%) 25 ml Q30M PRN IV Hypoglycemia 07/13/19 01:30 08/11/19 11:59 Dextrose (Dextrose 50%) 50 ml Q30M PRN IV Hypoglycemia 07/13/19 01:30 08/11/19 11:59 Finasteride (Proscar) 5 mg DAILY ORAL 07/14/19 09:00 08/13/19 08:59 07/15/19 10:02 Hydralazine HCl (Apresoline) 10 mg Q4H PRN IV bp over 160 syst 07/13/19 01:38 08/05/19 01:37 Hydrocortisone (Solu-CORTEF) 100 mg DAILY IV 07/15/19 09:00 08/04/19 14:29 07/15/19 10:02 Insulin Aspart (NovoLOG) Q6HR SUBQ 07/13/19 12:00 08/11/19 16:29 07/14/19 23:05 Metronidazole 100 ml @ 100 mls/hr Q12HR IVPB 07/13/19 09:00 07/18/19 20:59 07/15/19 10:04 Nitroglycerin (Ntg) 1 patch Q24H TDERMAL 07/13/19 12:30 08/05/19 12:29 07/14/19 12:21 Pantoprazole (Protonix) 40 mg Q12HR IV 07/13/19 09:00 08/04/19 11:14 07/15/19 10:03 Potassium Chloride (K-Dur) 20 meq TWICE A DAY GT 07/14/19 13:10 08/13/19 13:09 07/15/19 10:02 Promethazine HCl/ Codeine (Phenergan with Codeine) 5 ml Q4H PRN ORAL For Cough 07/13/19 01:41 08/03/19 01:40 Tamsulosin HCl (Flomax) 0.4 mg BEDTIME ORAL 07/13/19 21:00 08/12/19 20:59 07/14/19 20:14 Mirian Page M.D. Jul 15, 2019 10:36
--- NOTE | 2019-07-15 10:50 | Pulmonology Progress Note ---
Assessment/Plan Problems: (1) Sepsis (2) Cardiac arrest with successful resuscitation (3) Respiratory failure with hypoxia (4) CARA (acute kidney injury) (5) Anemia (6) Hypertensive heart disease (7) BPH (benign prostatic hyperplasia) (8) DVT (deep venous thrombosis) (9) Parkinson disease (10) Diabetes mellitus (11) Feeding by G-tube Assessment/Plan doing better continue Cefepime tolerating diet f/u WBC, still high aspiration precaution titrate fio2 to sat of 92% sliding sclae Subjective ROS Limited/Unobtainable: No Interval Events: awake, comfortable Allergies: Coded Allergies: PENICILLINS (Verified Allergy, Unknown, 07/04/19) Objective Last 24 Hour Vital Signs Date Time Temp Pulse Resp B/P (MAP) Pulse Ox O2 Delivery O2 Flow Rate FiO2 07/15/19 08:01 Nasal Cannula 2.0 Nasal Cannula 2.0 07/15/19 08:00 98.1 65 19 141/74 (96) 99 07/15/19 04:00 98.5 70 19 139/76 (97) 100 07/15/19 04:00 Nasal Cannula 2.0 Nasal Cannula 2.0 07/15/19 04:00 55 07/15/19 00:00 Nasal Cannula 2.0 Nasal Cannula 2.0 07/15/19 00:00 59 07/15/19 00:00 98.2 62 18 132/73 (92) 100 07/14/19 21:00 98 Nasal Cannula 2.0 28 07/14/19 20:00 97.7 69 20 137/75 (95) 100 07/14/19 20:00 79 07/14/19 20:00 Nasal Cannula 2.0 Nasal Cannula 2.0 07/14/19 16:00 Nasal Cannula 2.0 Nasal Cannula 2.0 07/14/19 16:00 97.8 74 20 150/60 (90) 100 07/14/19 16:00 82 07/14/19 12:21 152/83 07/14/19 12:00 98.7 71 20 152/83 (106) 99 07/14/19 12:00 Nasal Cannula 2.0 Nasal Cannula 2.0 07/14/19 12:00 64 Intake and Output 07/14/19 07/15/19 18:59 06:59 Intake Total 1020 ml 1075 ml Output Total 1500 ml 900 ml Balance -480 ml 175 ml Free Water 100 ml 200 ml IV Total 155 ml Tube Feeding 720 ml 720 ml Blood Product 200 ml Output Urine Total 1500 ml 900 ml # Bowel Movements 2 General Appearance: WD/WN HEENT: normocephalic, atraumatic Respiratory/Chest: chest wall non-tender, crackles/rales Cardiovascular: normal peripheral pulses, normal rate, regularly irregular Abdomen: normal bowel sounds, soft, non tender Genitourinary: normal external genitalia Skin: no rash Laboratory Tests 07/15/19 03:20: White Blood Count 12.8H, Red Blood Count 3.65L, Hemoglobin 10.1L, Hematocrit 31.2L, Mean Corpuscular Volume 86, Mean Corpuscular Hemoglobin 27.8, Mean Corpuscular Hemoglobin Concent 32.5, Red Cell Distribution Width 15.7H, Platelet Count 159, Mean Platelet Volume 7.6, Neutrophils (%) (Auto) 76.8H, Lymphocytes (%) (Auto) 9.8L, Monocytes (%) (Auto) 10.0, Eosinophils (%) (Auto) 3.1H, Basophils (%) (Auto) 0.4, Sodium Level 149H, Potassium Level 3.7, Chloride Level 109H, Carbon Dioxide Level 38H, Anion Gap 2L, Blood Urea Nitrogen 31H, Creatinine 0.7, Estimat Glomerular Filtration Rate , Glucose Level 138#H, Calcium Level 8.2L Current Medications Medications (Trade) Dose Ordered Sig/Genoveva Route PRN Reason Start Time Stop Time Status Last Admin Dose Admin Acetaminophen (Tylenol) 650 mg Q6H PRN ORAL Mild Pain/Temp > 100.5 07/13/19 01:36 08/03/19 01:35 Albuterol/ Ipratropium (Albuterol/ Ipratropium) 3 ml Q4HRT PRN HHN sob 07/13/19 11:00 07/18/19 10:59 Ceftriaxone Sodium 1 gm/ Dextrose 55 ml @ 110 mls/hr Q24H IVPB 07/15/19 20:00 07/22/19 19:59 Chlorhexidine Gluconate (Alondra-Hex 2%) 1 applic DAILY@2000 TOPIC 07/13/19 20:00 08/04/19 19:59 07/13/19 20:35 Dextrose (Dextrose 50%) 25 ml Q30M PRN IV Hypoglycemia 07/13/19 01:30 08/11/19 11:59 Dextrose (Dextrose 50%) 50 ml Q30M PRN IV Hypoglycemia 07/13/19 01:30 08/11/19 11:59 Finasteride (Proscar) 5 mg DAILY ORAL 07/14/19 09:00 08/13/19 08:59 07/15/19 10:02 Hydralazine HCl (Apresoline) 10 mg Q4H PRN IV bp over 160 syst 07/13/19 01:38 08/05/19 01:37 Hydrocortisone (Solu-CORTEF) 100 mg DAILY IV 07/15/19 09:00 08/04/19 14:29 07/15/19 10:02 Insulin Aspart (NovoLOG) Q6HR SUBQ 07/13/19 12:00 08/11/19 16:29 07/14/19 23:05 Nitroglycerin (Ntg) 1 patch Q24H TDERMAL 07/13/19 12:30 08/05/19 12:29 07/14/19 12:21 Pantoprazole (Protonix) 40 mg Q12HR IV 07/13/19 09:00 08/04/19 11:14 07/15/19 10:03 Potassium Chloride (K-Dur) 20 meq TWICE A DAY GT 07/14/19 13:10 08/13/19 13:09 07/15/19 10:02 Promethazine HCl/ Codeine (Phenergan with Codeine) 5 ml Q4H PRN ORAL For Cough 07/13/19 01:41 08/03/19 01:40 Tamsulosin HCl (Flomax) 0.4 mg BEDTIME ORAL 07/13/19 21:00 08/12/19 20:59 07/14/19 20:14 Kathryn Lopez MD Jul 15, 2019 10:50
--- NOTE | 2019-07-15 11:39 | NUR ---
RD ASSESSMENT & RECOMMENDATIONS SEE CARE ACTIVITY FOR COMPLETE ASSESSMENT DAILY ESTIMATED NEEDS: Needs based on Pulmonary, wound/ 67.7kg 25-30 kcals/kg 9079-2497 total kcals 1.25-1.5 g protein/kg 85-102 g total protein 25-30 mL/kg 2343-7137 total fluid mLs NUTRITION DIAGNOSIS: * Increased kcal/prot needs R/T wound healing as evidenced by pt w/ resolving wounds @ L buttocks, refer to WC eval. 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 CURRENT TF:Vital AF 1.2 @ 60ml/hr x 24 hrs PO DIET RECOMMENDATIONS: IF PO INDICATED-> CCHO MED, LOW NA/ TEXTURE PER SPRAY APPLICATOR ENTERAL NUTRITION RECOMMENDATIONS: Glucerna 1.2 @ 60ml/hr x 24 hrs to provide 1440ml, 1728kcal, 86g prot, 1159ml free water * Rec Glucerna 1.2 as pt now extubated, Vital AF no longer indicated. * Initiate Glucerna 1.2 @ 30ml/hr x 6 hrs, advance 10ml q 4-6 hrs as tolerated to goal rate. * HOB over 30 degrees * Water flush of 120ml q 4 hrs ADDITIONAL RECOMMENDATIONS: * Per SNF: HT=67" LW=559mmw (As of Jun 10, 2019) * Monitor K closely, need for TF change (K 5.9 upon adm, now wnl) * Rec increasing water flushes: elev Na, elev BUN * Wound healing: continue Dipak BID . . .
[2019-07-15 11:54] VITALS: BP 140/69
[2019-07-15] MEDS: Nitroglycerin Patch 0.4mg TDERMAL SCH (12:28)
--- NOTE | 2019-07-15 13:00 | NUR ---
NURSE NOTES: pt resting, vital signs stable, no co pain, bed bath given, repositioned, continue monitoring.
--- NOTE | 2019-07-15 15:08 | NUR ---
ACCOUNT EXECUTIVE KEY ACCOUNTSMECHANICAL MAINTENANCE SI: S/P RESP FAILURE S/P EXTUBATION,HYPERNATRMIA T. 98..1 HR 68 RR 20 B/P 141/74 2L NC O2 SAT @ 98% WBC 12.8 NA 149 BNP 3862 BUN 31 IS: PROTONIX IV SOLU CORTEF IV ROCEPHIN IV STEP DOWN STATUS
--- NOTE | 2019-07-15 15:32 | Diagnostic Imaging Report ---
Indication: Dyspnea Comparison: 07/13/2019 A single view chest radiograph was obtained. Findings: Mild vascular prominence and cardiomegaly are demonstrated. There is ill-definition of the left hemidiaphragm. Underlying infiltrate and/or effusion not excluded. Similar findings seen previously. A right chest port seen previously is no longer visualized. IMPRESSION: Infiltrate and/or pleural effusion suspected at the left lung base. Mild pulmonary vascular congestion not excluded. Correlate clinically.
[2019-07-15 16:00] VITALS: BP 127/65
--- NOTE | 2019-07-15 18:58 | Internal Med Progress Note ---
Subjective Date of Service: Jul 15, 2019 Physician Name Shukri Glover Attending Physician Rayshawn Woods MD Current Medications Medications (Trade) Dose Ordered Sig/Genoveva Route PRN Reason Start Time Stop Time Status Last Admin Dose Admin Acetaminophen (Tylenol) 650 mg Q6H PRN ORAL Mild Pain/Temp > 100.5 07/13/19 01:36 08/03/19 01:35 Albuterol/ Ipratropium (Albuterol/ Ipratropium) 3 ml Q4HRT PRN HHN sob 07/13/19 11:00 07/18/19 10:59 Ceftriaxone Sodium 1 gm/ Dextrose 55 ml @ 110 mls/hr Q24H IVPB 07/15/19 20:00 07/22/19 19:59 Chlorhexidine Gluconate (Alondra-Hex 2%) 1 applic DAILY@2000 TOPIC 07/13/19 20:00 08/04/19 19:59 07/13/19 20:35 Dextrose (Dextrose 50%) 25 ml Q30M PRN IV Hypoglycemia 07/13/19 01:30 08/11/19 11:59 Dextrose (Dextrose 50%) 50 ml Q30M PRN IV Hypoglycemia 07/13/19 01:30 08/11/19 11:59 Finasteride (Proscar) 5 mg DAILY ORAL 07/14/19 09:00 08/13/19 08:59 07/15/19 10:02 Hydralazine HCl (Apresoline) 10 mg Q4H PRN IV bp over 160 syst 07/13/19 01:38 08/05/19 01:37 Hydrocortisone (Solu-CORTEF) 100 mg DAILY IV 07/15/19 09:00 08/04/19 14:29 07/15/19 10:02 Insulin Aspart (NovoLOG) Q6HR SUBQ 07/13/19 12:00 08/11/19 16:29 07/15/19 17:53 Nitroglycerin (Ntg) 1 patch Q24H TDERMAL 07/13/19 12:30 08/05/19 12:29 07/15/19 12:28 Pantoprazole (Protonix) 40 mg Q12HR IV 07/13/19 09:00 08/04/19 11:14 07/15/19 10:03 Potassium Chloride (K-Dur) 20 meq TWICE A DAY GT 07/14/19 13:10 08/13/19 13:09 07/15/19 17:52 Promethazine HCl/ Codeine (Phenergan with Codeine) 5 ml Q4H PRN ORAL For Cough 07/13/19 01:41 08/03/19 01:40 Tamsulosin HCl (Flomax) 0.4 mg BEDTIME ORAL 07/13/19 21:00 08/12/19 20:59 07/14/19 20:14 Allergies: Coded Allergies: PENICILLINS (Verified Allergy, Unknown, 07/04/19) ROS Limited/Unobtainable: Yes Subjective 83 YO M admitted with dyspnea, now respiratory failure. Cover for Int Med-Dr Woods. SURY. Extubated 07/11/19 Objective Last Vital Signs Date Time Temp Pulse Resp B/P (MAP) Pulse Ox O2 Delivery O2 Flow Rate FiO2 07/15/19 16:00 98.2 77 21 127/65 (85) 96 07/15/19 16:00 Nasal Cannula 2.0 Nasal Cannula 2.0 07/14/19 21:00 28 Laboratory Tests Test 07/15/19 03:20 White Blood Count 12.8 K/UL (4.8-10.8) H Red Blood Count 3.65 M/UL (4.70-6.10) L Hemoglobin 10.1 G/DL (14.2-18.0) L Hematocrit 31.2 % (42.0-52.0) L Mean Corpuscular Volume 86 FL (80-99) Mean Corpuscular Hemoglobin 27.8 PG (27.0-31.0) Mean Corpuscular Hemoglobin Concent 32.5 G/DL (32.0-36.0) Red Cell Distribution Width 15.7 % (11.6-14.8) H Platelet Count 159 K/UL (150-450) Mean Platelet Volume 7.6 FL (6.5-10.1) Neutrophils (%) (Auto) 76.8 % (45.0-75.0) H Lymphocytes (%) (Auto) 9.8 % (20.0-45.0) L Monocytes (%) (Auto) 10.0 % (1.0-10.0) Eosinophils (%) (Auto) 3.1 % (0.0-3.0) H Basophils (%) (Auto) 0.4 % (0.0-2.0) Sodium Level 149 MMOL/L (136-145) H Potassium Level 3.7 MMOL/L (3.5-5.1) Chloride Level 109 MMOL/L (98-107) H Carbon Dioxide Level 38 MMOL/L (21-32) H Anion Gap 2 mmol/L (5-15) L Blood Urea Nitrogen 31 mg/dL (7-18) H Creatinine 0.7 MG/DL (0.55-1.30) Estimat Glomerular Filtration Rate mL/min (>60) Glucose Level 138 MG/DL (74-106) #H Calcium Level 8.2 MG/DL (8.5-10.1) L Intake and Output 07/14/19 07/15/19 19:00 07:00 Intake Total 1020 ml 1075 ml Output Total 1500 ml 900 ml Balance -480 ml 175 ml Free Water 100 ml 200 ml IV Total 155 ml Tube Feeding 720 ml 720 ml Blood Product 200 ml Output Urine Total 1500 ml 900 ml # Bowel Movements 2 Objective PHYSICAL EXAMINATION: GENERAL: The patient is a well-developed and well-nourished male, in moderate respiratory distress. HEENT: Eyes, pupils are equal and responsive to light and accommodation. Extraocular movements are intact. NECK: Supple without lymphadenopathy. CHEST: nasal canula; Coarse breath sounds bilaterally with expiratory wheezes. Otherwise, without crackles. ABDOMINAL: Soft, nontender, and nondistended. Positive bowel sounds. No evidence of hepatosplenomegaly. Currently, no rebound or guarding noted. CARDIOVASCULAR: Tachycardic. Regular rhythm. S1 and S2 are normal without murmurs, rubs, or gallops. GENITOURINARY: Deferred. NEUROLOGICAL: Cranial nerves II to XII are grossly intact without focal deficits. EXTREMITIES: Negative for clubbing, cyanosis, or edema. Assessment/Plan Assessment/Plan ASSESSMENT: This is an 83-year-old male. 1. Dyspnea. 2. Respiratory distress. 3. Diabetes type 2. 4. Parkinson disease. 5. Hypercholesterolemia. 6. Dilated cardiomyopathy. 7. Dysphagia. 8. Benign prostatic hypertrophy. 9. Left Ureteral stone/hydronephrosis TREATMENT: 1. Dyspnea/respiratory distress. A Pulmonary consultation has been obtained with Dr. Kathryn Lopez. The patient is currently extubated. ABX=vanco, flagyl and cefepime intravenously. We will follow recommendations of Pulmonary. 2. Diabetes type 2. 3. Hypercholesterolemia. 4. Dilated cardiomyopathy. 5. Dysphagia. The patient is status post PEG placement. 6. Hypertensive heart disease. 7. Benign prostatic hypertrophy. 8. ID=DR. Page 9. Urology = Shukri Donnelly MD Jul 15, 2019 18:58
--- NOTE | 2019-07-15 19:01 | NUR ---
HAND-OFF: Report given to JER HERMAN, no distress at this time.
--- NOTE | 2019-07-15 19:05 | NUR ---
NURSE NOTES: Received report from Deanna Tran RN. Patient resting in bed. No signs of distress. GT feeding running at desired rate, tolerating well. Juan catheter draining well to gravity. Safety precautions in place. HOB elevated, bed locked and lowest position. Call light within reach. Will continue to monitor patient.
[2019-07-15 20:00] VITALS: BP 137/59
[2019-07-15] MEDS ORDERED: cefTRIAXone 1 GM in D5W 55 ML IVPB SCH (20:00)
[2019-07-15] MEDS: Dyna-Hex 2% Top Sol 2oz TOPIC SCH (20:27)
[2019-07-15] MEDS: Tamsulosin 0.4mg cap ORAL SCH (20:34)
[2019-07-16] VITALS: BP 124/60
[2019-07-16 04:00] VITALS: BP 104/54
[2019-07-16] MEDS: NovoLOG Insulin Flexpen SUBQ SCH ×5 (05:23→23:32)
--- NOTE | 2019-07-16 07:30 | NUR ---
NURSE NOTES: Received report from Marcus Casanova RN. Patient asleep in bed, opens eyes spontaneously, able to answer simple questions. Receiving O2 via nasal cannula @ 2L/min, respirations even and unlabored. GT feeding of Vital AF 1.2 running @ 60 cc/hr, no residuals noted. HoB elevated. Juan catheter patent and draining well. Right forearm 20g saline lock intact and asymptomatic. Bed locked in lowest position with side rails up x 3. All needs attended to. Call light within reach. Will continue to monitor.
--- NOTE | 2019-07-16 07:30 | NUR ---
HAND-OFF: Report given to Sneha HERMAN. Pt in stable condition.
[2019-07-16 08:00] VITALS: BP 125/54
--- NOTE | 2019-07-16 09:06 | Urology Progress Note ---
Assessment/Plan Assessment/Plan: 1. Left-sided hydronephrosis, poss chronic. 2. Proteinuria. 3. Hematuria. 4. Pyuria. 5. Urinary retention. 6. BPH history. 7. Rule out neurogenic bladder. 8. Mild acute kidney injury, improved. 9. Left ureteral calculus. 10. Right renal calculi. 11. Cystitis. 12. Left inguinal hernia. monitor clinically maintain nixon hand irrigate PRN abx as ordered monitor renal fxn flomax and proscar added will consider tx of stones once more medically stabilized currently no flank pain and normal Cr voiding trial soon f/u on last blood cx Subjective Allergies: Coded Allergies: PENICILLINS (Verified Allergy, Unknown, 07/04/19) Subjective all noted, feels fair, no pain Objective Last 24 Hour Vital Signs Date Time Temp Pulse Resp B/P (MAP) Pulse Ox O2 Delivery O2 Flow Rate FiO2 07/16/19 08:00 98.1 69 22 125/54 (77) 100 07/16/19 04:00 97.7 67 20 104/54 (71) 100 07/16/19 04:00 Nasal Cannula 2.0 Nasal Cannula 2.0 07/16/19 03:38 65 07/16/19 00:00 Nasal Cannula 2.0 Nasal Cannula 2.0 07/16/19 00:00 98.1 66 22 124/60 (81) 97 07/15/19 23:26 71 07/15/19 20:00 98.2 79 22 137/59 (85) 96 07/15/19 20:00 Nasal Cannula 2.0 Nasal Cannula 2.0 07/15/19 19:04 77 07/15/19 19:00 99 Nasal Cannula 2.0 28 07/15/19 16:00 98.2 77 21 127/65 (85) 96 07/15/19 16:00 72 07/15/19 16:00 Nasal Cannula 2.0 Nasal Cannula 2.0 07/15/19 12:28 140/69 07/15/19 12:00 Nasal Cannula 2.0 Nasal Cannula 2.0 07/15/19 12:00 62 07/15/19 11:54 98.1 68 20 140/69 (92) 93 Intake and Output 07/15/19 07/16/19 19:00 07:00 Intake Total 1020 ml 650 ml Output Total 525 ml Balance 495 ml 650 ml Free Water 300 ml 50 ml Tube Feeding 720 ml 600 ml Output Urine Total 525 ml # Bowel Movements 1 1 Microbiology Date/Time Source Procedure Growth Status 07/11/19 12:00 Blood Blood Culture - Preliminary NO GROWTH AFTER 4 DAYS Resulted 07/04/19 10:15 Sputum Gram Stain - Final Complete 07/04/19 10:15 Sputum Culture - Final Nicolle Albicans Usual Respiratory Valery Complete 07/11/19 21:20 Urine,Clean Catch Urine Culture - Final NO GROWTH AFTER 48 HOURS Complete 07/04/19 00:43 Rectum - Final NO CARBAPENEM-RESISTANT ENTEROBACTERI... Complete Current Medications Medications (Trade) Dose Ordered Sig/Genoveva Route PRN Reason Start Time Stop Time Status Last Admin Dose Admin Acetaminophen (Tylenol) 650 mg Q6H PRN ORAL Mild Pain/Temp > 100.5 07/13/19 01:36 08/03/19 01:35 Albuterol/ Ipratropium (Albuterol/ Ipratropium) 3 ml Q4HRT PRN HHN sob 07/13/19 11:00 07/18/19 10:59 Ceftriaxone Sodium 1 gm/ Dextrose 55 ml @ 110 mls/hr Q24H IVPB 07/15/19 20:00 07/22/19 19:59 07/15/19 20:25 Chlorhexidine Gluconate (Alondra-Hex 2%) 1 applic DAILY@2000 TOPIC 07/13/19 20:00 08/04/19 19:59 07/15/19 20:27 Dextrose (Dextrose 50%) 25 ml Q30M PRN IV Hypoglycemia 07/13/19 01:30 08/11/19 11:59 Dextrose (Dextrose 50%) 50 ml Q30M PRN IV Hypoglycemia 07/13/19 01:30 08/11/19 11:59 Finasteride (Proscar) 5 mg DAILY ORAL 07/14/19 09:00 08/13/19 08:59 07/15/19 10:02 Hydralazine HCl (Apresoline) 10 mg Q4H PRN IV bp over 160 syst 07/13/19 01:38 08/05/19 01:37 Hydrocortisone (Solu-CORTEF) 100 mg DAILY IV 07/15/19 09:00 08/04/19 14:29 07/15/19 10:02 Insulin Aspart (NovoLOG) Q6HR SUBQ 07/13/19 12:00 08/11/19 16:29 07/16/19 05:23 Nitroglycerin (Ntg) 1 patch Q24H TDERMAL 07/13/19 12:30 08/05/19 12:29 07/15/19 12:28 Pantoprazole (Protonix) 40 mg Q12HR IV 07/13/19 09:00 08/04/19 11:14 07/15/19 20:34 Potassium Chloride (K-Dur) 20 meq TWICE A DAY GT 07/14/19 13:10 08/13/19 13:09 07/15/19 17:52 Promethazine HCl/ Codeine (Phenergan with Codeine) 5 ml Q4H PRN ORAL For Cough 07/13/19 01:41 08/03/19 01:40 Tamsulosin HCl (Flomax) 0.4 mg BEDTIME ORAL 07/13/19 21:00 08/12/19 20:59 07/15/19 20:34 Height (Feet): 5 Height (Inches): 8.00 Weight (Pounds): 198 Objective exam stable nixon indwelling urine slightly blood-tinged CT A/P (07/12) noted Clayton Callejas MD Jul 16, 2019 09:06
[2019-07-16] MEDS: Hydrocortisone 100mg Inj IV SCH (09:21)
[2019-07-16] MEDS: Pantoprazole Inj IV SCH ×2 (09:21→20:26)
--- NOTE | 2019-07-16 10:28 | Pulmonology Progress Note ---
Assessment/Plan Problems: (1) Sepsis (2) Cardiac arrest with successful resuscitation (3) Respiratory failure with hypoxia (4) CARA (acute kidney injury) (5) Anemia (6) Hypertensive heart disease (7) BPH (benign prostatic hyperplasia) (8) DVT (deep venous thrombosis) (9) Parkinson disease (10) Diabetes mellitus (11) Feeding by G-tube Assessment/Plan wbc still high no new cultures doing better continue Cefepime tolerating diet aspiration precaution titrate fio2 to sat of 92% sliding sclae Subjective Interval Events: comfortable Allergies: Coded Allergies: PENICILLINS (Verified Allergy, Unknown, 07/04/19) Objective Last 24 Hour Vital Signs Date Time Temp Pulse Resp B/P (MAP) Pulse Ox O2 Delivery O2 Flow Rate FiO2 07/16/19 08:00 98.1 69 22 125/54 (77) 100 07/16/19 04:00 97.7 67 20 104/54 (71) 100 07/16/19 04:00 Nasal Cannula 2.0 Nasal Cannula 2.0 07/16/19 03:38 65 07/16/19 00:00 Nasal Cannula 2.0 Nasal Cannula 2.0 07/16/19 00:00 98.1 66 22 124/60 (81) 97 07/15/19 23:26 71 07/15/19 20:00 98.2 79 22 137/59 (85) 96 07/15/19 20:00 Nasal Cannula 2.0 Nasal Cannula 2.0 07/15/19 19:04 77 07/15/19 19:00 99 Nasal Cannula 2.0 28 07/15/19 16:00 98.2 77 21 127/65 (85) 96 07/15/19 16:00 72 07/15/19 16:00 Nasal Cannula 2.0 Nasal Cannula 2.0 07/15/19 12:28 140/69 07/15/19 12:00 Nasal Cannula 2.0 Nasal Cannula 2.0 07/15/19 12:00 62 07/15/19 11:54 98.1 68 20 140/69 (92) 93 Intake and Output 07/15/19 07/16/19 19:00 07:00 Intake Total 1020 ml 650 ml Output Total 525 ml Balance 495 ml 650 ml Free Water 300 ml 50 ml Tube Feeding 720 ml 600 ml Output Urine Total 525 ml # Bowel Movements 1 1 General Appearance: WD/WN HEENT: normocephalic, atraumatic Respiratory/Chest: chest wall non-tender, lungs clear Cardiovascular: normal peripheral pulses, normal rate Abdomen: normal bowel sounds, soft, non tender, no scars Extremities: no clubbing Skin: no lesions Neurologic/Psychiatric: terrazzo grinder II-XII grossly normal Lymphatic: no neck adenopathy Current Medications Medications (Trade) Dose Ordered Sig/Genoveva Route PRN Reason Start Time Stop Time Status Last Admin Dose Admin Acetaminophen (Tylenol) 650 mg Q6H PRN ORAL Mild Pain/Temp > 100.5 07/13/19 01:36 08/03/19 01:35 Albuterol/ Ipratropium (Albuterol/ Ipratropium) 3 ml Q4HRT PRN HHN sob 07/13/19 11:00 07/18/19 10:59 Ceftriaxone Sodium 1 gm/ Dextrose 55 ml @ 110 mls/hr Q24H IVPB 07/15/19 20:00 07/22/19 19:59 07/15/19 20:25 Chlorhexidine Gluconate (Alondra-Hex 2%) 1 applic DAILY@2000 TOPIC 07/13/19 20:00 08/04/19 19:59 07/15/19 20:27 Dextrose (Dextrose 50%) 25 ml Q30M PRN IV Hypoglycemia 07/13/19 01:30 08/11/19 11:59 Dextrose (Dextrose 50%) 50 ml Q30M PRN IV Hypoglycemia 07/13/19 01:30 08/11/19 11:59 Finasteride (Proscar) 5 mg DAILY ORAL 07/14/19 09:00 08/13/19 08:59 07/16/19 09:22 Hydralazine HCl (Apresoline) 10 mg Q4H PRN IV bp over 160 syst 07/13/19 01:38 08/05/19 01:37 Hydrocortisone (Solu-CORTEF) 100 mg DAILY IV 07/15/19 09:00 08/04/19 14:29 07/16/19 09:21 Insulin Aspart (NovoLOG) Q6HR SUBQ 07/13/19 12:00 08/11/19 16:29 07/16/19 05:23 Nitroglycerin (Ntg) 1 patch Q24H TDERMAL 07/13/19 12:30 3/2/20 12:29 07/15/19 12:28 Pantoprazole (Protonix) 40 mg Q12HR IV 07/13/19 09:00 08/04/19 11:14 07/16/19 09:21 Potassium Chloride (K-Dur) 20 meq TWICE A DAY GT 07/14/19 13:10 08/13/19 13:09 07/16/19 09:22 Promethazine HCl/ Codeine (Phenergan with Codeine) 5 ml Q4H PRN ORAL For Cough 07/13/19 01:41 08/03/19 01:40 Tamsulosin HCl (Flomax) 0.4 mg BEDTIME ORAL 07/13/19 21:00 08/12/19 20:59 07/15/19 20:34 Kathryn Lopez MD Jul 16, 2019 10:28
--- NOTE | 2019-07-16 11:39 | Cardiac Electrophysiology PN ---
Assessment/Plan Assessment/Plan 1. Status post bradycardic arrest with heart rate in the 20s. Off any sinus node or AV destinee blocking agents. 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 Likely precipitated by respiratory failure The first two troponins on admission were negative. 5 follow up troponins were mildly elevated likely due to Code. No further critical hillary episode on tele. Lowest HR 50s 2. NSTEMI. Due to arrest 3. Respiratory failure. D. Dimer positive. VQ scan pre code was low probability. Extubated 07/11/19 3. Hypotension. Improved with IV fluid 5. Dehydration and hyperatremia, resolved 6. Dysphagia, status post PEG 7. Diabetes. 8. Benign prostatic hypertrophy.FU Dr. Callejas. S/P CT abdomen that showed Left hydronephrosis 9. Full code. 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 No further bradycardia. In NAD Objective Last 24 Hour Vital Signs Date Time Temp Pulse Resp B/P (MAP) Pulse Ox O2 Delivery O2 Flow Rate FiO2 07/16/19 08:00 98.1 69 22 125/54 (77) 100 07/16/19 08:00 Nasal Cannula 2.0 Nasal Cannula 2.0 07/16/19 07:46 65 07/16/19 04:00 97.7 67 20 104/54 (71) 100 07/16/19 04:00 Nasal Cannula 2.0 Nasal Cannula 2.0 07/16/19 03:38 65 07/16/19 00:00 Nasal Cannula 2.0 Nasal Cannula 2.0 07/16/19 00:00 98.1 66 22 124/60 (81) 97 07/15/19 23:26 71 07/15/19 20:00 98.2 79 22 137/59 (85) 96 07/15/19 20:00 Nasal Cannula 2.0 Nasal Cannula 2.0 07/15/19 19:04 77 07/15/19 19:00 99 Nasal Cannula 2.0 28 07/15/19 16:00 98.2 77 21 127/65 (85) 96 07/15/19 16:00 72 07/15/19 16:00 Nasal Cannula 2.0 Nasal Cannula 2.0 07/15/19 12:28 140/69 07/15/19 12:00 Nasal Cannula 2.0 Nasal Cannula 2.0 07/15/19 12:00 62 07/15/19 11:54 98.1 68 20 140/69 (92) 93 Intake and Output 07/15/19 07/16/19 19:00 07:00 Intake Total 1020 ml 650 ml Output Total 525 ml Balance 495 ml 650 ml Free Water 300 ml 50 ml Tube Feeding 720 ml 600 ml Output Urine Total 525 ml # Bowel Movements 1 1 Objective HEAD AND NECK: Mild JVD. LUNGS: Decreased breath sounds. CARDIOVASCULAR: RRR. No G/R/M ABDOMEN: Status post G-tube. EXTREMITIES: No pitting edema. Enio Santos MD Jul 16, 2019 11:38
[2019-07-16 12:00] VITALS: BP 136/83
--- NOTE | 2019-07-16 12:10 | Infectious Diseases Prog Note ---
Assessment/Plan Assessment/Plan Assessment: Shock, SP s/p cardiac arrest 07/05 Obstruct uropathy, L hydrouretenephrosis -07/12 CT abd/p: -07/12 CT abd/p: Moderate left hydroureteronephrosis secondary to a 1.5 cm left mid to distal ureter stone. Multiple nonobstructive stones within the right kidney. Thickening of the wall the urinary bladder consistent with cystitis. Juan catheter in good position. 10 x 7 cm left inguinal hernia containing bowel. No evidence of obstruction.Trace left pleural effusion. Bilateral posterior basal atelectasis. Sepsis, Sp Probable UTI Acute hypoxic respiratory failure, intubated 07/05; extubated 07/11 Aspiration pneumonia vs pneumonitis Gram positive bacteremia- contaminant -07/15 CXR:Infiltrate and/or pleural effusion suspected at the left lung base. Mild pulmonary vascular congestion not excluded. Correlate clinically. -07/13 CXR: Improving pulmonary venous congestion with unchanged small left pleural effusion and slight worsening of left basilar infiltrate, indeterminate between atelectasis and pneumonia -07/11 u/a wbc 2-4, nit neg, leuk +3; ucx Neg Bcx NTD -07/06 Bcx Neg -07/05 CXR:Mild CHF -u/a wbc 5-10, nit neg, leuk +2; ucx Neg -Bcx 06/08 dipteriods -sp cx usual resp rupert -CXR: No acute process -influenza sc neg -v. duplex: no DVT -V/q scan:Findings are deemed low probability for pulmonary embolus Fever; low grade, recurrent- SP Mild leukocytosis, fluctuating CARA; improving Dm2 dysphagia s/p GT hx of PNA parkinson disease HTN bed bound [place] resident Plan: -Continue Ceftriaxone #2 (abx d d#13/14 ) -07/15 SP Flagyl # 11, Cefepime #12 -07/09 SP IV Vancomycin #5 -07/04 SP Levaquin x1 -f/u cx -Monitor CBC/CMP, temperatures -aspiration precautions -GT care -Cards, nephro f/u -f/u Repeat Bcx x2 -Cdiff if diarrhea -uro f/u Thank you for this consultation. Will continue to follow along with you. Discussed with RN. Subjective Allergies: Coded Allergies: PENICILLINS (Verified Allergy, Unknown, 07/04/19) Subjective afebrile wbc improved; no cbc today Objective Vital Signs Last 24 Hour Vital Signs Date Time Temp Pulse Resp B/P (MAP) Pulse Ox O2 Delivery O2 Flow Rate FiO2 07/16/19 08:00 98.1 69 22 125/54 (77) 100 07/16/19 08:00 Nasal Cannula 2.0 Nasal Cannula 2.0 07/16/19 07:46 65 07/16/19 04:00 97.7 67 20 104/54 (71) 100 07/16/19 04:00 Nasal Cannula 2.0 Nasal Cannula 2.0 07/16/19 03:38 65 07/16/19 00:00 Nasal Cannula 2.0 Nasal Cannula 2.0 07/16/19 00:00 98.1 66 22 124/60 (81) 97 07/15/19 23:26 71 07/15/19 20:00 98.2 79 22 137/59 (85) 96 07/15/19 20:00 Nasal Cannula 2.0 Nasal Cannula 2.0 07/15/19 19:04 77 07/15/19 19:00 99 Nasal Cannula 2.0 28 07/15/19 16:00 98.2 77 21 127/65 (85) 96 07/15/19 16:00 72 07/15/19 16:00 Nasal Cannula 2.0 Nasal Cannula 2.0 07/15/19 12:28 140/69 Height (Feet): 5 Height (Inches): 8.00 Weight (Pounds): 198 Objective General Appearance: no distress HEENT: normocephalic, atraumatic Neck: non-tender, normal alignment Respiratory/Chest: chest wall non-tender, lungs clear Cardiovascular/Chest: normal rate Abdomen: normal bowel sounds, non tender Extremities: normal range of motion Current Medications Medications (Trade) Dose Ordered Sig/Genoveva Route PRN Reason Start Time Stop Time Status Last Admin Dose Admin Acetaminophen (Tylenol) 650 mg Q6H PRN ORAL Mild Pain/Temp > 100.5 07/13/19 01:36 08/03/19 01:35 Albuterol/ Ipratropium (Albuterol/ Ipratropium) 3 ml Q4HRT PRN HHN sob 07/13/19 11:00 07/18/19 10:59 Ceftriaxone Sodium 1 gm/ Dextrose 55 ml @ 110 mls/hr Q24H IVPB 07/15/19 20:00 07/22/19 19:59 07/15/19 20:25 Chlorhexidine Gluconate (Alondra-Hex 2%) 1 applic DAILY@2000 TOPIC 07/13/19 20:00 08/04/19 19:59 07/15/19 20:27 Dextrose (Dextrose 50%) 25 ml Q30M PRN IV Hypoglycemia 07/13/19 01:30 08/11/19 11:59 Dextrose (Dextrose 50%) 50 ml Q30M PRN IV Hypoglycemia 07/13/19 01:30 08/11/19 11:59 Finasteride (Proscar) 5 mg DAILY ORAL 07/14/19 09:00 08/13/19 08:59 07/16/19 09:22 Hydralazine HCl (Apresoline) 10 mg Q4H PRN IV bp over 160 syst 07/13/19 01:38 08/05/19 01:37 Hydrocortisone (Solu-CORTEF) 100 mg DAILY IV 07/15/19 09:00 08/04/19 14:29 07/16/19 09:21 Insulin Aspart (NovoLOG) Q6HR SUBQ 07/13/19 12:00 08/11/19 16:29 07/16/19 05:23 Nitroglycerin (Ntg) 1 patch Q24H TDERMAL 07/13/19 12:30 08/05/19 12:29 07/15/19 12:28 Pantoprazole (Protonix) 40 mg Q12HR IV 07/13/19 09:00 08/04/19 11:14 07/16/19 09:21 Potassium Chloride (K-Dur) 20 meq TWICE A DAY GT 07/14/19 13:10 08/13/19 13:09 07/16/19 09:22 Promethazine HCl/ Codeine (Phenergan with Codeine) 5 ml Q4H PRN ORAL For Cough 07/13/19 01:41 08/03/19 01:40 Tamsulosin HCl (Flomax) 0.4 mg BEDTIME ORAL 07/13/19 21:00 08/12/19 20:59 07/15/19 20:34 Mirian Page M.D. Jul 16, 2019 12:10
[2019-07-16] MEDS: Nitroglycerin Patch 0.4mg TDERMAL SCH (12:43)
--- NOTE | 2019-07-16 15:00 | Nephrology Progress Note ---
Assessment/Plan Problem List: (1) RIA (acute kidney injury) (2) Cardiac arrest with successful resuscitation (3) Respiratory failure with hypoxia (4) Hydronephrosis Assessment patient have Ria due to Low BP and s/p arrest elevated liver enzymes for same reason others: 1. Acute hypoxemic respiratory failure. 2. Hypotension possible sepsis. 3. Diabetes type 2. 4. Parkinson disease. 5. Hypercholesterolemia. 6. EjFx 65% reported 7. Dysphagia. 8. Benign prostatic hypertrophy. Plan Cr 1.6 now wnl extubated 2/6 Nitro- Phos , K , Mag supplement as needed keep BP above 100 syst Pulm support monitor renal parameters discussed with RN VALENTINA: Moderate left hydronephrosis. Juan catheter. Echogenic right kidney. Suspected medical renal disease. Subjective ROS Limited/Unobtainable: No Constitutional: Reports: malaise, weakness Objective Objective Last 24 Hour Vital Signs Date Time Temp Pulse Resp B/P (MAP) Pulse Ox O2 Delivery O2 Flow Rate FiO2 07/16/19 12:43 136/83 07/16/19 12:00 Nasal Cannula 2.0 Nasal Cannula 2.0 07/16/19 12:00 97.7 73 20 136/83 (100) 99 07/16/19 11:55 66 07/16/19 08:00 98.1 69 22 125/54 (77) 100 07/16/19 08:00 Nasal Cannula 2.0 Nasal Cannula 2.0 07/16/19 07:46 65 07/16/19 04:00 97.7 67 20 104/54 (71) 100 07/16/19 04:00 Nasal Cannula 2.0 Nasal Cannula 2.0 07/16/19 03:38 65 07/16/19 00:00 Nasal Cannula 2.0 Nasal Cannula 2.0 07/16/19 00:00 98.1 66 22 124/60 (81) 97 07/15/19 23:26 71 07/15/19 20:00 98.2 79 22 137/59 (85) 96 07/15/19 20:00 Nasal Cannula 2.0 Nasal Cannula 2.0 07/15/19 19:04 77 07/15/19 19:00 99 Nasal Cannula 2.0 28 07/15/19 16:00 98.2 77 21 127/65 (85) 96 07/15/19 16:00 72 07/15/19 16:00 Nasal Cannula 2.0 Nasal Cannula 2.0 Intake and Output 07/15/19 07/16/19 19:00 07:00 Intake Total 1020 ml 650 ml Output Total 525 ml Balance 495 ml 650 ml Free Water 300 ml 50 ml Tube Feeding 720 ml 600 ml Output Urine Total 525 ml # Bowel Movements 1 1 Height (Feet): 5 Height (Inches): 8.00 Weight (Pounds): 198 General Appearance: mild distress Cardiovascular: normal rate Respiratory/Chest: decreased breath sounds Abdomen: soft Objective no change Oskar Mohr MD Jul 16, 2019 15:00
--- NOTE | 2019-07-16 15:27 | NUR ---
HAND-OFF: Report given to Marjorie Thorpe RN.
--- NOTE | 2019-07-16 15:35 | NUR ---
NURSE NOTES: Received report from VIRGIL Hoover. Patient is observed resting in bed, opens eyes spontaneously and able to make needs known. Pt is oriented to name but fatigued. Pt is on NC 2L/min, respirations remain even and unlabored with no s/sx of respiratory distress noted at this time. Pt remains SR on tele monitor with a HR of 72 noted and no s/sx of cardiac distress. GT noted which remains patent and is currently infusing Vital AF 1.2 running @ 60 mL/hr as ordered.HOB remains elevated and aspiration precautions observed. Nixon catheter noted which remains patent and draining to gravity; nixon anchor placed by Dr Maradiaga which remains intact. Right forearm 20G saline lock intact and asymptomatic. Pt remains clean and dry with no pain noted during assessment. Pt remains resting in bed; Bed remains in the lowest position with safety wheels engaged, side rails up x 3, call light within reach and bed alarm activated. Will continue plan of care. Will continue to monitor.
[2019-07-16 16:00] VITALS: BP 130/62
--- NOTE | 2019-07-16 16:40 | NUR ---
NURSE NOTES: IV catheter noted to be occluded. New Right forearm 20G IV catheter placed on first attempt. IV catheter remains intact, patent and asymptomatic. Family remains present at bedside. Pt remains resting in bed; Bed remains in the lowest position with safety wheels engaged, side rails up x 3, call light within reach and bed alarm activated. Will continue plan of care. Will continue to monitor.
--- NOTE | 2019-07-16 17:54 | Internal Med Progress Note ---
Subjective Date of Service: Jul 16, 2019 Physician Name Shukri Glover Attending Physician Rayshawn Woods MD Current Medications Medications (Trade) Dose Ordered Sig/Genoveva Route PRN Reason Start Time Stop Time Status Last Admin Dose Admin Acetaminophen (Tylenol) 650 mg Q6H PRN ORAL Mild Pain/Temp > 100.5 07/13/19 01:36 08/03/19 01:35 Albuterol/ Ipratropium (Albuterol/ Ipratropium) 3 ml Q4HRT PRN HHN sob 07/13/19 11:00 07/18/19 10:59 Ceftriaxone Sodium 1 gm/ Sodium Chloride 55 ml @ 110 mls/hr Q24H IVPB 07/16/19 20:00 07/23/19 19:59 Chlorhexidine Gluconate (Alondra-Hex 2%) 1 applic DAILY@2000 TOPIC 07/13/19 20:00 08/04/19 19:59 07/15/19 20:27 Dextrose (Dextrose 50%) 25 ml Q30M PRN IV Hypoglycemia 07/13/19 01:30 08/11/19 11:59 Dextrose (Dextrose 50%) 50 ml Q30M PRN IV Hypoglycemia 07/13/19 01:30 08/11/19 11:59 Finasteride (Proscar) 5 mg DAILY ORAL 07/14/19 09:00 08/13/19 08:59 07/16/19 09:22 Hydralazine HCl (Apresoline) 10 mg Q4H PRN IV bp over 160 syst 07/13/19 01:38 08/05/19 01:37 Hydrocortisone (Solu-CORTEF) 100 mg DAILY IV 07/15/19 09:00 08/04/19 14:29 07/16/19 09:21 Insulin Aspart (NovoLOG) Q6HR SUBQ 07/13/19 12:00 08/11/19 16:29 07/16/19 17:34 Nitroglycerin (Ntg) 1 patch Q24H TDERMAL 07/13/19 12:30 08/05/19 12:29 07/16/19 12:43 Pantoprazole (Protonix) 40 mg Q12HR IV 07/13/19 09:00 08/04/19 11:14 07/16/19 09:21 Potassium Chloride (K-Dur) 20 meq TWICE A DAY GT 07/14/19 13:10 08/13/19 13:09 07/16/19 17:33 Promethazine HCl/ Codeine (Phenergan with Codeine) 5 ml Q4H PRN ORAL For Cough 07/13/19 01:41 08/03/19 01:40 Tamsulosin HCl (Flomax) 0.4 mg BEDTIME ORAL 07/13/19 21:00 08/12/19 20:59 07/15/19 20:34 Allergies: Coded Allergies: PENICILLINS (Verified Allergy, Unknown, 07/04/19) ROS Limited/Unobtainable: Yes Subjective 83 YO M admitted with dyspnea, now respiratory failure. Cover for Int Med-Dr Woods. SURY. Extubated 07/11/19 Objective Last Vital Signs Date Time Temp Pulse Resp B/P (MAP) Pulse Ox O2 Delivery O2 Flow Rate FiO2 07/16/19 16:00 97.9 80 23 130/62 (84) 99 07/16/19 16:00 Nasal Cannula 2.0 Nasal Cannula 2.0 07/15/19 19:00 28 Intake and Output 07/15/19 07/16/19 19:00 07:00 Intake Total 1020 ml 710 ml Output Total 525 ml Balance 495 ml 710 ml Free Water 300 ml 50 ml Tube Feeding 720 ml 660 ml Output Urine Total 525 ml # Bowel Movements 1 1 Objective PHYSICAL EXAMINATION: GENERAL: The patient is a well-developed and well-nourished male, in moderate respiratory distress. HEENT: Eyes, pupils are equal and responsive to light and accommodation. Extraocular movements are intact. NECK: Supple without lymphadenopathy. CHEST: nasal canula; Coarse breath sounds bilaterally with expiratory wheezes. Otherwise, without crackles. ABDOMINAL: Soft, nontender, and nondistended. Positive bowel sounds. No evidence of hepatosplenomegaly. Currently, no rebound or guarding noted. CARDIOVASCULAR: Tachycardic. Regular rhythm. S1 and S2 are normal without murmurs, rubs, or gallops. GENITOURINARY: Deferred. NEUROLOGICAL: Cranial nerves II to XII are grossly intact without focal deficits. EXTREMITIES: Negative for clubbing, cyanosis, or edema. Assessment/Plan Assessment/Plan ASSESSMENT: This is an 83-year-old male. 1. Dyspnea. 2. Respiratory distress. 3. Diabetes type 2. 4. Parkinson disease. 5. Hypercholesterolemia. 6. Dilated cardiomyopathy. 7. Dysphagia. 8. Benign prostatic hypertrophy. 9. Left Ureteral stone/hydronephrosis TREATMENT: 1. Dyspnea/respiratory distress. A Pulmonary consultation has been obtained with Dr. Kathryn Lopez. The patient is currently extubated. ABX=vanco, flagyl and cefepime intravenously. We will follow recommendations of Pulmonary. 2. Diabetes type 2. 3. Hypercholesterolemia. 4. Dilated cardiomyopathy. 5. Dysphagia. The patient is status post PEG placement. 6. Hypertensive heart disease. 7. Benign prostatic hypertrophy. 8. ID=DR. Page 9. Urology = Shukri Donnelly MD Jul 16, 2019 17:54
[2019-07-16] MEDS: cefTRIAXone 1 GM in NS 55 ML IVPB SCH (19:02)
[2019-07-16] MEDS: Dyna-Hex 2% Top Sol 2oz TOPIC SCH (19:02)
--- NOTE | 2019-07-16 19:57 | NUR ---
NURSE NOTES: Dr Callejas present at bedside to assess patient. Spoke with Dr Callejas regarding Flomax; continue to open capsule and give despite being GTube patient. Will continue to monitor.
[2019-07-16 20:00] VITALS: BP 136/86
[2019-07-16] MEDS: Tamsulosin 0.4mg cap ORAL SCH (20:26)
--- NOTE | 2019-07-16 23:24 | NUR ---
NURSE NOTES: Received report from VIRGIL Matias, pt in bed awake, appears to be alert to name, no signs or symptoms of acute cardiac or respiratory distress noted, bed in lowest position and call light within easy reach, bed locked in position, pt. appears to be sating well on 2L NC- no distress noted, G tube running Vital AF 1.2 at 60cc/hr- no residual noted, RFA 20G IV intact and patent- TKO, safety measures continued, will continue with plan of care.
--- NOTE | 2019-07-16 23:24 | NUR ---
HAND-OFF: Report given to VIRGIL Dejesus. Pt remains stable at this time.
[2019-07-17] VITALS: BP 136/74
[2019-07-17 04:00] VITALS: BP 120/60
[2019-07-17] MEDS: NovoLOG Insulin Flexpen SUBQ SCH ×3 (05:20→18:15)
--- NOTE | 2019-07-17 07:04 | NUR ---
HAND-OFF: Report given to Jn Rn, pt. remains stable and no signs of distress noted.
[2019-07-17 07:06] LABS: BASOPHILS % (AUTO) 0.2 % (0.0-2.0); EOSINOPHILS % (AUTO) 1.2 % (0.0-3.0); HEMATOCRIT 27.6 % (42.0-52.0); HEMOGLOBIN 9.2 G/DL (14.2-18.0); LYMPHOCYTES % (AUTO) 9.1 % (20.0-45.0); MEAN CORPUSCULAR VOLUME 85 FL (80-99); MONOCYTES % (AUTO) 9.6 % (1.0-10.0); PLATELET COUNT 157 K/UL (150-450); RED BLOOD COUNT 3.24 M/UL (4.70-6.10); RED CELL DISTRIBUTION WIDTH 16.3 % (11.6-14.8); WHITE BLOOD COUNT 10.4 K/UL (4.8-10.8)
[2019-07-17 07:17] LABS: ALANINE AMINOTRANSFERASE 46 U/L (12-78); ALBUMIN 2.2 G/DL (3.4-5.0); ALBUMIN/GLOBULIN RATIO 0.7 (1.0-2.7); ALKALINE PHOSPHATASE 92 U/L (46-116); ANION GAP 1 mmol/L (5-15); ASPARTATE AMINO TRANSFERASE 15 U/L (15-37); BILIRUBIN,TOTAL 0.3 MG/DL (0.2-1.0); BLOOD UREA NITROGEN 33 mg/dL (7-18); CALCIUM 8.2 MG/DL (8.5-10.1); CARBON DIOXIDE 39 MMOL/L (21-32); CHLORIDE 110 MMOL/L (98-107); CREATININE 0.7 MG/DL (0.55-1.30); PHOSPHORUS 2.4 MG/DL (2.5-4.9); POTASSIUM 4.2 MMOL/L (3.5-5.1); SODIUM 150 MMOL/L (136-145)
--- NOTE | 2019-07-17 07:20 | NUR ---
NURSE NOTES: RECEIVED BED SIDE REPORT FROM ALEKSANDRA SULFONATION EQUIPMENT OPERATOR OF HOSPICE PLAN ADMINISTRATOR. RECEIVED PT WITH HOB ELEVATED 45 DEGREE AWAKE AND ALERT TO NAME. PT USING O2 @ 2L/MINTS VIA N/C ,SAT 100% AT THIS TIME.PT SEEMS VERY CONGESTED ,PROVIDE ORAL CARE AND SUCTIONED LG AMT OF THICK WHITE SECRETIONS.PT RECEIVING GTF VITAL 1.2 @ 60CC/HRS, NO RESIDUAL NOTED ,TOLERATING WELL GTF. PT MAGNESIUM 1.7 ,DR GUERIN ORDER TO GIVE MAGNESIUM 2GRAMS IVPB.THE NEW ORDERS NOTED AND CARRIED OUT.FULL BODY ASSESSMENT DONE.PT REPOSITIONED IN Q 2HRS TO PROVIDE COMFORT AND TO PREVENT FURTHER SKIN BREAK DOWN.NO ACUTE DISTRESS NOTED AT THIS TIME. WILL CONT TO MONITOR .
--- NOTE | 2019-07-17 07:20 | Urology Progress Note ---
Assessment/Plan Assessment/Plan: 1. Left-sided hydronephrosis, poss chronic. 2. Proteinuria. 3. Hematuria. 4. Pyuria. 5. Urinary retention. 6. BPH history. 7. Rule out neurogenic bladder. 8. Mild acute kidney injury, improved. 9. Left ureteral calculus. 10. Right renal calculi. 11. Cystitis. 12. Left inguinal hernia. monitor clinically maintain nixon hand irrigate PRN abx as ordered monitor renal fxn flomax and proscar added will consider tx of stones once more medically stabilized currently no flank pain and normal Cr voiding trial at some point? Subjective Allergies: Coded Allergies: PENICILLINS (Verified Allergy, Unknown, 07/04/19) Subjective all noted, feels fair, no pain Objective Last 24 Hour Vital Signs Date Time Temp Pulse Resp B/P (MAP) Pulse Ox O2 Delivery O2 Flow Rate FiO2 07/17/19 04:27 66 07/17/19 04:00 Nasal Cannula 2.0 Nasal Cannula 2.0 07/17/19 04:00 98.1 70 20 120/60 (80) 100 07/17/19 00:00 Nasal Cannula 2.0 Nasal Cannula 2.0 07/17/19 00:00 97.6 74 21 136/74 (94) 94 07/16/19 23:32 71 07/16/19 20:00 Nasal Cannula 2.0 Nasal Cannula 2.0 07/16/19 20:00 98.2 78 22 136/86 (103) 96 07/16/19 19:55 99 Nasal Cannula 2.0 28 07/16/19 19:33 83 07/16/19 16:34 79 07/16/19 16:00 97.9 80 23 130/62 (84) 99 07/16/19 16:00 Nasal Cannula 2.0 Nasal Cannula 2.0 07/16/19 12:43 136/83 07/16/19 12:00 Nasal Cannula 2.0 Nasal Cannula 2.0 07/16/19 12:00 97.7 73 20 136/83 (100) 99 07/16/19 11:55 66 07/16/19 08:00 98.1 69 22 125/54 (77) 100 07/16/19 08:00 Nasal Cannula 2.0 Nasal Cannula 2.0 07/16/19 07:46 65 Intake and Output 07/16/19 07/17/19 19:00 07:00 Intake Total 810 ml 875 ml Output Total 650 ml 1000 ml Balance 160 ml -125 ml Free Water 30 ml 100 ml IV Total 55 ml Tube Feeding 720 ml 720 ml Other 60 ml Output Urine Total 650 ml 1000 ml # Bowel Movements 2 1 Microbiology Date/Time Source Procedure Growth Status 07/11/19 12:00 Blood Blood Culture - Final NO GROWTH AFTER 5 DAYS Complete 07/04/19 10:15 Sputum Gram Stain - Final Complete 07/04/19 10:15 Sputum Culture - Final Nicolle Albicans Usual Respiratory Valery Complete 07/11/19 21:20 Urine,Clean Catch Urine Culture - Final NO GROWTH AFTER 48 HOURS Complete 07/04/19 00:43 Rectum - Final NO CARBAPENEM-RESISTANT ENTEROBACTERI... Complete Current Medications Medications (Trade) Dose Ordered Sig/Genoveva Route PRN Reason Start Time Stop Time Status Last Admin Dose Admin Acetaminophen (Tylenol) 650 mg Q6H PRN ORAL Mild Pain/Temp > 100.5 07/13/19 01:36 08/03/19 01:35 Albuterol/ Ipratropium (Albuterol/ Ipratropium) 3 ml Q4HRT PRN HHN sob 07/13/19 11:00 07/18/19 10:59 Ceftriaxone Sodium 1 gm/ Sodium Chloride 55 ml @ 110 mls/hr Q24H IVPB 07/16/19 20:00 07/23/19 19:59 07/16/19 19:02 Chlorhexidine Gluconate (Alondra-Hex 2%) 1 applic DAILY@2000 TOPIC 07/13/19 20:00 08/04/19 19:59 07/16/19 19:02 Dextrose (Dextrose 50%) 25 ml Q30M PRN IV Hypoglycemia 07/13/19 01:30 08/11/19 11:59 Dextrose (Dextrose 50%) 50 ml Q30M PRN IV Hypoglycemia 07/13/19 01:30 08/11/19 11:59 Finasteride (Proscar) 5 mg DAILY ORAL 07/14/19 09:00 08/13/19 08:59 07/16/19 09:22 Hydralazine HCl (Apresoline) 10 mg Q4H PRN IV bp over 160 syst 07/13/19 01:38 08/05/19 01:37 Hydrocortisone (Solu-CORTEF) 100 mg DAILY IV 07/15/19 09:00 08/04/19 14:29 07/16/19 09:21 Insulin Aspart (NovoLOG) Q6HR SUBQ 07/13/19 12:00 08/11/19 16:29 07/17/19 05:20 Nitroglycerin (Ntg) 1 patch Q24H TDERMAL 07/13/19 12:30 08/05/19 12:29 07/16/19 12:43 Pantoprazole (Protonix) 40 mg Q12HR IV 07/13/19 09:00 08/04/19 11:14 07/16/19 20:26 Potassium Chloride (K-Dur) 20 meq TWICE A DAY GT 07/14/19 13:10 08/13/19 13:09 07/16/19 17:33 Promethazine HCl/ Codeine (Phenergan with Codeine) 5 ml Q4H PRN ORAL For Cough 07/13/19 01:41 08/03/19 01:40 Tamsulosin HCl (Flomax) 0.4 mg BEDTIME ORAL 07/13/19 21:00 08/12/19 20:59 07/16/19 20:26 Laboratory Tests 07/17/19 03:30: White Blood Count 10.4, Red Blood Count 3.24L, Hemoglobin 9.2L, Hematocrit 27.6L , Mean Corpuscular Volume 85, Mean Corpuscular Hemoglobin 28.3, Mean Corpuscular Hemoglobin Concent 33.2, Red Cell Distribution Width 16.3H, Platelet Count 157, Mean Platelet Volume 7.4, Neutrophils (%) (Auto) 80.0H, Lymphocytes (%) (Auto) 9.1L, Monocytes (%) (Auto) 9.6, Eosinophils (%) (Auto) 1.2, Basophils (%) (Auto) 0.2, Erythrocyte Sedimentation Rate [Pending], Sodium Level [Pending], Potassium Level [Pending], Chloride Level [Pending], Carbon Dioxide Level [Pending], Blood Urea Nitrogen [Pending], Creatinine [Pending], Estimat Glomerular Filtration Rate [Pending], Glucose Level [Pending], Calcium Level [Pending], Phosphorus Level [Pending], Magnesium Level [Pending], Total Bilirubin [Pending], Aspartate Amino Transf (AST/SGOT) [Pending], Alanine Aminotransferase (ALT/SGPT) [Pending], Alkaline Phosphatase [Pending], C- Reactive Protein, Quantitative [Pending], Total Protein [Pending], Albumin [ Pending], Globulin [Pending] Height (Feet): 5 Height (Inches): 8.00 Weight (Pounds): 198 Objective exam stable nixon indwelling urine slightly blood-tinged CT A/P (07/12) noted Clayton Callejas MD Jul 17, 2019 07:20
[2019-07-17 08:00] VITALS: BP 143/65
[2019-07-17] MEDS: Hydrocortisone 100mg Inj IV SCH (09:46)
[2019-07-17] MEDS: Pantoprazole Inj IV SCH ×2 (09:47→20:32)
--- NOTE | 2019-07-17 10:51 | Cardiac Electrophysiology PN ---
Assessment/Plan Assessment/Plan 1. Status post bradycardic arrest with heart rate in the 20s. Off any sinus node or AV destinee blocking agents. 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 Likely precipitated by respiratory failure The first two troponins on admission were negative. 5 follow up troponins were mildly elevated likely due to Code. No further critical hillary episode on tele. Lowest HR 50s 2. NSTEMI. Due to arrest 3. Respiratory failure. D. Dimer positive. VQ scan pre code was low probability. Extubated 07/11/19 3. Hypotension. Improved with IV fluid 5. Dehydration and hyperatremia, resolved 6. Dysphagia, status post PEG 7. Diabetes. 8. Benign prostatic hypertrophy.SKYLER Callejas. S/P CT abdomen that showed Left hydronephrosis 9. Full code. CARI RN Subjective Subjective PEG feeding ongoing. Mild bradycardia in 50s. In NAD Objective Last 24 Hour Vital Signs Date Time Temp Pulse Resp B/P (MAP) Pulse Ox O2 Delivery O2 Flow Rate FiO2 07/17/19 08:00 Nasal Cannula 2.0 Nasal Cannula 2.0 07/17/19 08:00 64 07/17/19 08:00 97.5 68 21 143/65 (91) 100 07/17/19 04:27 66 07/17/19 04:00 Nasal Cannula 2.0 Nasal Cannula 2.0 07/17/19 04:00 98.1 70 20 120/60 (80) 100 07/17/19 00:00 Nasal Cannula 2.0 Nasal Cannula 2.0 07/17/19 00:00 97.6 74 21 136/74 (94) 94 07/16/19 23:32 71 07/16/19 20:00 Nasal Cannula 2.0 Nasal Cannula 2.0 07/16/19 20:00 98.2 78 22 136/86 (103) 96 07/16/19 19:55 99 Nasal Cannula 2.0 28 07/16/19 19:33 83 07/16/19 16:34 79 07/16/19 16:00 97.9 80 23 130/62 (84) 99 07/16/19 16:00 Nasal Cannula 2.0 Nasal Cannula 2.0 07/16/19 12:43 136/83 07/16/19 12:00 Nasal Cannula 2.0 Nasal Cannula 2.0 07/16/19 12:00 97.7 73 20 136/83 (100) 99 07/16/19 11:55 66 Intake and Output 07/16/19 07/17/19 19:00 07:00 Intake Total 810 ml 875 ml Output Total 650 ml 1000 ml Balance 160 ml -125 ml Free Water 30 ml 100 ml IV Total 55 ml Tube Feeding 720 ml 720 ml Other 60 ml Output Urine Total 650 ml 1000 ml # Bowel Movements 2 1 Laboratory Tests Test 07/17/19 03:30 White Blood Count 10.4 K/UL (4.8-10.8) Red Blood Count 3.24 M/UL (4.70-6.10) L Hemoglobin 9.2 G/DL (14.2-18.0) L Hematocrit 27.6 % (42.0-52.0) L Mean Corpuscular Volume 85 FL (80-99) Mean Corpuscular Hemoglobin 28.3 PG (27.0-31.0) Mean Corpuscular Hemoglobin Concent 33.2 G/DL (32.0-36.0) Red Cell Distribution Width 16.3 % (11.6-14.8) H Platelet Count 157 K/UL (150-450) Mean Platelet Volume 7.4 FL (6.5-10.1) Neutrophils (%) (Auto) 80.0 % (45.0-75.0) H Lymphocytes (%) (Auto) 9.1 % (20.0-45.0) L Monocytes (%) (Auto) 9.6 % (1.0-10.0) Eosinophils (%) (Auto) 1.2 % (0.0-3.0) Basophils (%) (Auto) 0.2 % (0.0-2.0) Erythrocyte Sedimentation Rate 5 MM/HR (0-20) Sodium Level 150 MMOL/L (136-145) H Potassium Level 4.2 MMOL/L (3.5-5.1) Chloride Level 110 MMOL/L (98-107) H Carbon Dioxide Level 39 MMOL/L (21-32) H Anion Gap 1 mmol/L (5-15) L Blood Urea Nitrogen 33 mg/dL (7-18) H Creatinine 0.7 MG/DL (0.55-1.30) Estimat Glomerular Filtration Rate > 60 mL/min (>60) Glucose Level 153 MG/DL (74-106) H Calcium Level 8.2 MG/DL (8.5-10.1) L Phosphorus Level 2.4 MG/DL (2.5-4.9) L Magnesium Level 1.7 MG/DL (1.8-2.4) L Total Bilirubin 0.3 MG/DL (0.2-1.0) Aspartate Amino Transf (AST/SGOT) 15 U/L (15-37) Alanine Aminotransferase (ALT/SGPT) 46 U/L (12-78) Alkaline Phosphatase 92 U/L (46-116) C-Reactive Protein, Quantitative 1.5 mg/dL (0.00-0.90) H Total Protein 5.5 G/DL (6.4-8.2) L Albumin 2.2 G/DL (3.4-5.0) L Globulin 3.3 g/dL Albumin/Globulin Ratio 0.7 (1.0-2.7) L Objective HEAD AND NECK: Mild JVD. LUNGS: Decreased breath sounds. CARDIOVASCULAR: RRR. No G/R/M ABDOMEN: Status post G-tube. EXTREMITIES: No pitting edema. Enio Santos MD Jul 17, 2019 10:51
--- NOTE | 2019-07-17 11:22 | Pulmonology Progress Note ---
Assessment/Plan Problems: (1) Cardiac arrest with successful resuscitation (2) Respiratory failure with hypoxia (3) Sepsis (4) CARA (acute kidney injury) (5) Anemia (6) Hypertensive heart disease (7) BPH (benign prostatic hyperplasia) (8) DVT (deep venous thrombosis) (9) Parkinson disease (10) Diabetes mellitus (11) Feeding by G-tube Assessment/Plan wbc wnl, afebrile Na is high, Mg was low today no new cultures doing better continue Rocephine tolerating diet aspiration precaution titrate fio2 to sat of 92% sliding sclae Subjective Interval Events: looks comfortable Allergies: Coded Allergies: PENICILLINS (Verified Allergy, Unknown, 07/04/19) Objective Last 24 Hour Vital Signs Date Time Temp Pulse Resp B/P (MAP) Pulse Ox O2 Delivery O2 Flow Rate FiO2 07/17/19 08:00 Nasal Cannula 2.0 Nasal Cannula 2.0 07/17/19 08:00 64 07/17/19 08:00 97.5 68 21 143/65 (91) 100 07/17/19 04:27 66 07/17/19 04:00 Nasal Cannula 2.0 Nasal Cannula 2.0 07/17/19 04:00 98.1 70 20 120/60 (80) 100 07/17/19 00:00 Nasal Cannula 2.0 Nasal Cannula 2.0 07/17/19 00:00 97.6 74 21 136/74 (94) 94 07/16/19 23:32 71 07/16/19 20:00 Nasal Cannula 2.0 Nasal Cannula 2.0 07/16/19 20:00 98.2 78 22 136/86 (103) 96 07/16/19 19:55 99 Nasal Cannula 2.0 28 07/16/19 19:33 83 07/16/19 16:34 79 07/16/19 16:00 97.9 80 23 130/62 (84) 99 07/16/19 16:00 Nasal Cannula 2.0 Nasal Cannula 2.0 07/16/19 12:43 136/83 07/16/19 12:00 Nasal Cannula 2.0 Nasal Cannula 2.0 07/16/19 12:00 97.7 73 20 136/83 (100) 99 07/16/19 11:55 66 Intake and Output 07/16/19 07/17/19 19:00 07:00 Intake Total 810 ml 875 ml Output Total 650 ml 1000 ml Balance 160 ml -125 ml Free Water 30 ml 100 ml IV Total 55 ml Tube Feeding 720 ml 720 ml Other 60 ml Output Urine Total 650 ml 1000 ml # Bowel Movements 2 1 General Appearance: WD/WN HEENT: normocephalic, atraumatic Respiratory/Chest: chest wall non-tender, crackles/rales Cardiovascular: normal peripheral pulses, regular rhythm Abdomen: normal bowel sounds Extremities: no cyanosis Skin: no rash Laboratory Tests 07/17/19 03:30: White Blood Count 10.4, Red Blood Count 3.24L, Hemoglobin 9.2L, Hematocrit 27.6L , Mean Corpuscular Volume 85, Mean Corpuscular Hemoglobin 28.3, Mean Corpuscular Hemoglobin Concent 33.2, Red Cell Distribution Width 16.3H, Platelet Count 157, Mean Platelet Volume 7.4, Neutrophils (%) (Auto) 80.0H, Lymphocytes (%) (Auto) 9.1L, Monocytes (%) (Auto) 9.6, Eosinophils (%) (Auto) 1.2, Basophils (%) (Auto) 0.2, Erythrocyte Sedimentation Rate 5, Sodium Level 150H, Potassium Level 4.2, Chloride Level 110H, Carbon Dioxide Level 39H, Anion Gap 1L, Blood Urea Nitrogen 33H, Creatinine 0.7, Estimat Glomerular Filtration Rate > 60, Glucose Level 153H, Calcium Level 8.2L, Phosphorus Level 2.4L, Magnesium Level 1.7L, Total Bilirubin 0.3, Aspartate Amino Transf (AST/SGOT) 15 , Alanine Aminotransferase (ALT/SGPT) 46, Alkaline Phosphatase 92, C-Reactive Protein, Quantitative 1.5H, Total Protein 5.5L, Albumin 2.2L, Globulin 3.3, Albumin/Globulin Ratio 0.7L Current Medications Medications (Trade) Dose Ordered Sig/Genoveva Route PRN Reason Start Time Stop Time Status Last Admin Dose Admin Acetaminophen (Tylenol) 650 mg Q6H PRN ORAL Mild Pain/Temp > 100.5 07/13/19 01:36 08/03/19 01:35 Albuterol/ Ipratropium (Albuterol/ Ipratropium) 3 ml Q4HRT PRN HHN sob 07/13/19 11:00 07/18/19 10:59 Ceftriaxone Sodium 1 gm/ Sodium Chloride 55 ml @ 110 mls/hr Q24H IVPB 07/16/19 20:00 07/23/19 19:59 07/16/19 19:02 Chlorhexidine Gluconate (Alondra-Hex 2%) 1 applic DAILY@2000 TOPIC 07/13/19 20:00 08/04/19 19:59 07/16/19 19:02 Dextrose (Dextrose 50%) 25 ml Q30M PRN IV Hypoglycemia 07/13/19 01:30 08/11/19 11:59 Dextrose (Dextrose 50%) 50 ml Q30M PRN IV Hypoglycemia 07/13/19 01:30 08/11/19 11:59 Finasteride (Proscar) 5 mg DAILY ORAL 07/14/19 09:00 08/13/19 08:59 07/17/19 09:46 Hydralazine HCl (Apresoline) 10 mg Q4H PRN IV bp over 160 syst 07/13/19 01:38 08/05/19 01:37 Hydrocortisone (Solu-CORTEF) 100 mg DAILY IV 07/15/19 09:00 08/04/19 14:29 07/17/19 09:46 Insulin Aspart (NovoLOG) Q6HR SUBQ 07/13/19 12:00 08/11/19 16:29 07/17/19 05:20 Nitroglycerin (Ntg) 1 patch Q24H TDERMAL 07/13/19 12:30 08/05/19 12:29 07/16/19 12:43 Pantoprazole (Protonix) 40 mg Q12HR IV 07/13/19 09:00 08/04/19 11:14 07/17/19 09:47 Potassium Chloride (K-Dur) 20 meq TWICE A DAY GT 07/14/19 13:10 08/13/19 13:09 07/17/19 09:46 Promethazine HCl/ Codeine (Phenergan with Codeine) 5 ml Q4H PRN ORAL For Cough 07/13/19 01:41 08/03/19 01:40 Tamsulosin HCl (Flomax) 0.4 mg BEDTIME ORAL 07/13/19 21:00 08/12/19 20:59 07/16/19 20:26 Kathryn Lopez MD Jul 17, 2019 11:22
--- NOTE | 2019-07-17 11:59 | Internal Med Progress Note ---
Subjective Date of Service: Jul 17, 2019 Physician Name Shukri Glover Attending Physician Rayshawn Woods MD Current Medications Medications (Trade) Dose Ordered Sig/Genoveva Route PRN Reason Start Time Stop Time Status Last Admin Dose Admin Acetaminophen (Tylenol) 650 mg Q6H PRN ORAL Mild Pain/Temp > 100.5 07/13/19 01:36 08/03/19 01:35 Albuterol/ Ipratropium (Albuterol/ Ipratropium) 3 ml Q4HRT PRN HHN sob 07/13/19 11:00 07/18/19 10:59 Ceftriaxone Sodium 1 gm/ Sodium Chloride 55 ml @ 110 mls/hr Q24H IVPB 07/16/19 20:00 07/23/19 19:59 07/16/19 19:02 Chlorhexidine Gluconate (Alondra-Hex 2%) 1 applic DAILY@2000 TOPIC 07/13/19 20:00 08/04/19 19:59 07/16/19 19:02 Dextrose (Dextrose 50%) 25 ml Q30M PRN IV Hypoglycemia 07/13/19 01:30 08/11/19 11:59 Dextrose (Dextrose 50%) 50 ml Q30M PRN IV Hypoglycemia 07/13/19 01:30 08/11/19 11:59 Finasteride (Proscar) 5 mg DAILY ORAL 07/14/19 09:00 08/13/19 08:59 07/17/19 09:46 Hydralazine HCl (Apresoline) 10 mg Q4H PRN IV bp over 160 syst 07/13/19 01:38 08/05/19 01:37 Insulin Aspart (NovoLOG) Q6HR SUBQ 07/13/19 12:00 08/11/19 16:29 07/17/19 05:20 Nitroglycerin (Ntg) 1 patch Q24H TDERMAL 07/13/19 12:30 08/05/19 12:29 07/16/19 12:43 Pantoprazole (Protonix) 40 mg Q12HR IV 07/13/19 09:00 08/04/19 11:14 07/17/19 09:47 Potassium Chloride (K-Dur) 20 meq TWICE A DAY GT 07/14/19 13:10 08/13/19 13:09 07/17/19 09:46 Promethazine HCl/ Codeine (Phenergan with Codeine) 5 ml Q4H PRN ORAL For Cough 07/13/19 01:41 08/03/19 01:40 Tamsulosin HCl (Flomax) 0.4 mg BEDTIME ORAL 07/13/19 21:00 08/12/19 20:59 07/16/19 20:26 Allergies: Coded Allergies: PENICILLINS (Verified Allergy, Unknown, 07/04/19) ROS Limited/Unobtainable: Yes Subjective 83 YO M admitted with dyspnea, now respiratory failure. Cover for Int Med-Dr Woods. SURY. Extubated 07/11/19 Objective Last Vital Signs Date Time Temp Pulse Resp B/P (MAP) Pulse Ox O2 Delivery O2 Flow Rate FiO2 07/17/19 08:00 Nasal Cannula 2.0 Nasal Cannula 2.0 07/17/19 08:00 64 07/17/19 08:00 97.5 21 143/65 (91) 100 07/16/19 19:55 28 Laboratory Tests Test 07/17/19 03:30 White Blood Count 10.4 K/UL (4.8-10.8) Red Blood Count 3.24 M/UL (4.70-6.10) L Hemoglobin 9.2 G/DL (14.2-18.0) L Hematocrit 27.6 % (42.0-52.0) L Mean Corpuscular Volume 85 FL (80-99) Mean Corpuscular Hemoglobin 28.3 PG (27.0-31.0) Mean Corpuscular Hemoglobin Concent 33.2 G/DL (32.0-36.0) Red Cell Distribution Width 16.3 % (11.6-14.8) H Platelet Count 157 K/UL (150-450) Mean Platelet Volume 7.4 FL (6.5-10.1) Neutrophils (%) (Auto) 80.0 % (45.0-75.0) H Lymphocytes (%) (Auto) 9.1 % (20.0-45.0) L Monocytes (%) (Auto) 9.6 % (1.0-10.0) Eosinophils (%) (Auto) 1.2 % (0.0-3.0) Basophils (%) (Auto) 0.2 % (0.0-2.0) Erythrocyte Sedimentation Rate 5 MM/HR (0-20) Sodium Level 150 MMOL/L (136-145) H Potassium Level 4.2 MMOL/L (3.5-5.1) Chloride Level 110 MMOL/L (98-107) H Carbon Dioxide Level 39 MMOL/L (21-32) H Anion Gap 1 mmol/L (5-15) L Blood Urea Nitrogen 33 mg/dL (7-18) H Creatinine 0.7 MG/DL (0.55-1.30) Estimat Glomerular Filtration Rate > 60 mL/min (>60) Glucose Level 153 MG/DL (74-106) H Calcium Level 8.2 MG/DL (8.5-10.1) L Phosphorus Level 2.4 MG/DL (2.5-4.9) L Magnesium Level 1.7 MG/DL (1.8-2.4) L Total Bilirubin 0.3 MG/DL (0.2-1.0) Aspartate Amino Transf (AST/SGOT) 15 U/L (15-37) Alanine Aminotransferase (ALT/SGPT) 46 U/L (12-78) Alkaline Phosphatase 92 U/L (46-116) C-Reactive Protein, Quantitative 1.5 mg/dL (0.00-0.90) H Total Protein 5.5 G/DL (6.4-8.2) L Albumin 2.2 G/DL (3.4-5.0) L Globulin 3.3 g/dL Albumin/Globulin Ratio 0.7 (1.0-2.7) L Intake and Output 07/16/19 07/17/19 19:00 07:00 Intake Total 810 ml 875 ml Output Total 650 ml 1000 ml Balance 160 ml -125 ml Free Water 30 ml 100 ml IV Total 55 ml Tube Feeding 720 ml 720 ml Other 60 ml Output Urine Total 650 ml 1000 ml # Bowel Movements 2 1 Objective PHYSICAL EXAMINATION: GENERAL: The patient is a well-developed and well-nourished male, in moderate respiratory distress. HEENT: Eyes, pupils are equal and responsive to light and accommodation. Extraocular movements are intact. NECK: Supple without lymphadenopathy. CHEST: nasal canula; Coarse breath sounds bilaterally with expiratory wheezes. Otherwise, without crackles. ABDOMINAL: Soft, nontender, and nondistended. Positive bowel sounds. No evidence of hepatosplenomegaly. Currently, no rebound or guarding noted. CARDIOVASCULAR: Tachycardic. Regular rhythm. S1 and S2 are normal without murmurs, rubs, or gallops. GENITOURINARY: Deferred. NEUROLOGICAL: Cranial nerves II to XII are grossly intact without focal deficits. EXTREMITIES: Negative for clubbing, cyanosis, or edema. Assessment/Plan Assessment/Plan ASSESSMENT: This is an 83-year-old male. 1. Dyspnea. 2. Respiratory distress. 3. Diabetes type 2. 4. Parkinson disease. 5. Hypercholesterolemia. 6. Dilated cardiomyopathy. 7. Dysphagia. 8. Benign prostatic hypertrophy. 9. Left Ureteral stone/hydronephrosis TREATMENT: 1. Dyspnea/respiratory distress. A Pulmonary consultation has been obtained with Dr. Kathryn Lopez. The patient is currently extubated. ABX=Ceftriaxone. We will follow recommendations of Pulmonary. 2. Diabetes type 2. 3. Hypercholesterolemia. 4. Dilated cardiomyopathy. 5. Dysphagia. The patient is status post PEG placement. 6. Hypertensive heart disease. 7. Benign prostatic hypertrophy. 8. ID=DR. Page 9. Urology = Shukri Donnelly MD Jul 17, 2019 11:59
[2019-07-17 12:00] VITALS: BP 150/71
[2019-07-17] MEDS: Nitroglycerin Patch 0.4mg TDERMAL SCH (12:49)
--- NOTE | 2019-07-17 13:27 | Nephrology Progress Note ---
Assessment/Plan Problem List: (1) RIA (acute kidney injury) (2) Cardiac arrest with successful resuscitation (3) Respiratory failure with hypoxia (4) Hydronephrosis Assessment patient have Ria due to Low BP and s/p arrest elevated liver enzymes for same reason others: 1. Acute hypoxemic respiratory failure. 2. Hypotension possible sepsis. 3. Diabetes type 2. 4. Parkinson disease. 5. Hypercholesterolemia. 6. EjFx 65% reported 7. Dysphagia. 8. Benign prostatic hypertrophy. Plan Cr 1.6 now wnl extubated 2/6 Nitro- Phos , K , Mag supplement as needed keep BP above 100 syst Pulm support monitor renal parameters discussed with RN VALENTINA: Moderate left hydronephrosis. Juan catheter. Echogenic right kidney. Suspected medical renal disease. Subjective ROS Limited/Unobtainable: No Constitutional: Reports: malaise, weakness Objective Objective Last 24 Hour Vital Signs Date Time Temp Pulse Resp B/P (MAP) Pulse Ox O2 Delivery O2 Flow Rate FiO2 07/17/19 12:49 150/71 07/17/19 12:00 Nasal Cannula 2.0 Nasal Cannula 2.0 07/17/19 12:00 98.1 71 21 150/71 (97) 100 07/17/19 12:00 75 07/17/19 08:00 Nasal Cannula 2.0 Nasal Cannula 2.0 07/17/19 08:00 64 07/17/19 08:00 97.5 68 21 143/65 (91) 100 07/17/19 04:27 66 07/17/19 04:00 Nasal Cannula 2.0 Nasal Cannula 2.0 07/17/19 04:00 98.1 70 20 120/60 (80) 100 07/17/19 00:00 Nasal Cannula 2.0 Nasal Cannula 2.0 07/17/19 00:00 97.6 74 21 136/74 (94) 94 07/16/19 23:32 71 07/16/19 20:00 Nasal Cannula 2.0 Nasal Cannula 2.0 07/16/19 20:00 98.2 78 22 136/86 (103) 96 07/16/19 19:55 99 Nasal Cannula 2.0 28 07/16/19 19:33 83 07/16/19 16:34 79 07/16/19 16:00 97.9 80 23 130/62 (84) 99 07/16/19 16:00 Nasal Cannula 2.0 Nasal Cannula 2.0 Intake and Output 07/16/19 07/17/19 19:00 07:00 Intake Total 810 ml 875 ml Output Total 650 ml 1000 ml Balance 160 ml -125 ml Free Water 30 ml 100 ml IV Total 55 ml Tube Feeding 720 ml 720 ml Other 60 ml Output Urine Total 650 ml 1000 ml # Bowel Movements 2 1 Laboratory Tests 07/17/19 03:30: White Blood Count 10.4, Red Blood Count 3.24L, Hemoglobin 9.2L, Hematocrit 27.6L , Mean Corpuscular Volume 85, Mean Corpuscular Hemoglobin 28.3, Mean Corpuscular Hemoglobin Concent 33.2, Red Cell Distribution Width 16.3H, Platelet Count 157, Mean Platelet Volume 7.4, Neutrophils (%) (Auto) 80.0H, Lymphocytes (%) (Auto) 9.1L, Monocytes (%) (Auto) 9.6, Eosinophils (%) (Auto) 1.2, Basophils (%) (Auto) 0.2, Erythrocyte Sedimentation Rate 5, Sodium Level 150H, Potassium Level 4.2, Chloride Level 110H, Carbon Dioxide Level 39H, Anion Gap 1L, Blood Urea Nitrogen 33H, Creatinine 0.7, Estimat Glomerular Filtration Rate > 60, Glucose Level 153H, Calcium Level 8.2L, Phosphorus Level 2.4L, Magnesium Level 1.7L, Total Bilirubin 0.3, Aspartate Amino Transf (AST/SGOT) 15 , Alanine Aminotransferase (ALT/SGPT) 46, Alkaline Phosphatase 92, C-Reactive Protein, Quantitative 1.5H, Total Protein 5.5L, Albumin 2.2L, Globulin 3.3, Albumin/Globulin Ratio 0.7L Height (Feet): 5 Height (Inches): 8.00 Weight (Pounds): 198 General Appearance: no apparent distress Cardiovascular: normal rate Respiratory/Chest: decreased breath sounds Abdomen: soft, distended Objective no change Oskar Mohr MD Jul 17, 2019 13:27
[2019-07-17 17:00] VITALS: BP 152/70
--- NOTE | 2019-07-17 17:40 | Infectious Diseases Prog Note ---
Assessment/Plan Assessment/Plan Assessment: Shock, SP s/p cardiac arrest 07/05 Obstruct uropathy, L hydrouretenephrosis -07/12 CT abd/p: -07/12 CT abd/p: Moderate left hydroureteronephrosis secondary to a 1.5 cm left mid to distal ureter stone. Multiple nonobstructive stones within the right kidney. Thickening of the wall the urinary bladder consistent with cystitis. Juan catheter in good position. 10 x 7 cm left inguinal hernia containing bowel. No evidence of obstruction.Trace left pleural effusion. Bilateral posterior basal atelectasis. Sepsis, Sp Probable UTI Acute hypoxic respiratory failure, intubated 07/05; extubated 07/11 Aspiration pneumonia vs pneumonitis Gram positive bacteremia- contaminant -07/15 CXR:Infiltrate and/or pleural effusion suspected at the left lung base. Mild pulmonary vascular congestion not excluded. Correlate clinically. -07/13 CXR: Improving pulmonary venous congestion with unchanged small left pleural effusion and slight worsening of left basilar infiltrate, indeterminate between atelectasis and pneumonia -07/11 u/a wbc 2-4, nit neg, leuk +3; ucx Neg Bcx Neg -07/06 Bcx Neg -07/05 CXR:Mild CHF -u/a wbc 5-10, nit neg, leuk +2; ucx Neg -Bcx 06/08 dipteriods -sp cx usual resp rupert -CXR: No acute process -influenza sc neg -v. duplex: no DVT -V/q scan:Findings are deemed low probability for pulmonary embolus Fever; low grade, recurrent- SP Mild leukocytosis,SP CARA; improving Dm2 dysphagia s/p GT hx of PNA parkinson disease HTN bed bound CT resident Plan: -Continue Ceftriaxone #3 (abx d d#14/ ) -07/15 SP Flagyl # 11, Cefepime #12 -07/09 SP IV Vancomycin #5 -07/04 SP Levaquin x1 -f/u cx -Monitor CBC/CMP, temperatures -aspiration precautions -GT care -Cards, nephro f/u -Cdiff if diarrhea -uro f/u Thank you for this consultation. Will continue to follow along with you. Discussed with RN. Subjective Allergies: Coded Allergies: PENICILLINS (Verified Allergy, Unknown, 07/04/19) Subjective afebrile leukocytosis resolved bcx neg Objective Vital Signs Last 24 Hour Vital Signs Date Time Temp Pulse Resp B/P (MAP) Pulse Ox O2 Delivery O2 Flow Rate FiO2 07/17/19 17:00 98.8 82 22 152/70 (97) 100 07/17/19 16:00 Nasal Cannula 2.0 Nasal Cannula 2.0 07/17/19 16:00 86 07/17/19 15:16 100 Nasal Cannula 2.0 28 07/17/19 15:01 80 22 100 Nasal Cannula 2.0 28 72 17 100 07/17/19 12:49 150/71 07/17/19 12:00 Nasal Cannula 2.0 Nasal Cannula 2.0 07/17/19 12:00 98.1 71 21 150/71 (97) 100 07/17/19 12:00 75 07/17/19 08:00 Nasal Cannula 2.0 Nasal Cannula 2.0 07/17/19 08:00 64 07/17/19 08:00 97.5 68 21 143/65 (91) 100 07/17/19 04:27 66 07/17/19 04:00 Nasal Cannula 2.0 Nasal Cannula 2.0 07/17/19 04:00 98.1 70 20 120/60 (80) 100 07/17/19 00:00 Nasal Cannula 2.0 Nasal Cannula 2.0 07/17/19 00:00 97.6 74 21 136/74 (94) 94 07/16/19 23:32 71 07/16/19 20:00 Nasal Cannula 2.0 Nasal Cannula 2.0 07/16/19 20:00 98.2 78 22 136/86 (103) 96 07/16/19 19:55 99 Nasal Cannula 2.0 28 07/16/19 19:33 83 Height (Feet): 5 Height (Inches): 8.00 Weight (Pounds): 198 Objective General Appearance: no distress HEENT: normocephalic, atraumatic Neck: non-tender, normal alignment Respiratory/Chest: chest wall non-tender, lungs clear Cardiovascular/Chest: normal rate Abdomen: normal bowel sounds, non tender Extremities: normal range of motion Laboratory Tests Test 07/17/19 03:30 White Blood Count 10.4 K/UL (4.8-10.8) Red Blood Count 3.24 M/UL (4.70-6.10) L Hemoglobin 9.2 G/DL (14.2-18.0) L Hematocrit 27.6 % (42.0-52.0) L Mean Corpuscular Volume 85 FL (80-99) Mean Corpuscular Hemoglobin 28.3 PG (27.0-31.0) Mean Corpuscular Hemoglobin Concent 33.2 G/DL (32.0-36.0) Red Cell Distribution Width 16.3 % (11.6-14.8) H Platelet Count 157 K/UL (150-450) Mean Platelet Volume 7.4 FL (6.5-10.1) Neutrophils (%) (Auto) 80.0 % (45.0-75.0) H Lymphocytes (%) (Auto) 9.1 % (20.0-45.0) L Monocytes (%) (Auto) 9.6 % (1.0-10.0) Eosinophils (%) (Auto) 1.2 % (0.0-3.0) Basophils (%) (Auto) 0.2 % (0.0-2.0) Erythrocyte Sedimentation Rate 5 MM/HR (0-20) Sodium Level 150 MMOL/L (136-145) H Potassium Level 4.2 MMOL/L (3.5-5.1) Chloride Level 110 MMOL/L (98-107) H Carbon Dioxide Level 39 MMOL/L (21-32) H Anion Gap 1 mmol/L (5-15) L Blood Urea Nitrogen 33 mg/dL (7-18) H Creatinine 0.7 MG/DL (0.55-1.30) Estimat Glomerular Filtration Rate > 60 mL/min (>60) Glucose Level 153 MG/DL (74-106) H Calcium Level 8.2 MG/DL (8.5-10.1) L Phosphorus Level 2.4 MG/DL (2.5-4.9) L Magnesium Level 1.7 MG/DL (1.8-2.4) L Total Bilirubin 0.3 MG/DL (0.2-1.0) Aspartate Amino Transf (AST/SGOT) 15 U/L (15-37) Alanine Aminotransferase (ALT/SGPT) 46 U/L (12-78) Alkaline Phosphatase 92 U/L (46-116) C-Reactive Protein, Quantitative 1.5 mg/dL (0.00-0.90) H Total Protein 5.5 G/DL (6.4-8.2) L Albumin 2.2 G/DL (3.4-5.0) L Globulin 3.3 g/dL Albumin/Globulin Ratio 0.7 (1.0-2.7) L Current Medications Medications (Trade) Dose Ordered Sig/Genoveva Route PRN Reason Start Time Stop Time Status Last Admin Dose Admin Acetaminophen (Tylenol) 650 mg Q6H PRN ORAL Mild Pain/Temp > 100.5 07/13/19 01:36 08/03/19 01:35 Albuterol/ Ipratropium (Albuterol/ Ipratropium) 3 ml Q4HRT PRN HHN sob 07/13/19 11:00 07/18/19 10:59 07/17/19 15:01 Ceftriaxone Sodium 1 gm/ Sodium Chloride 55 ml @ 110 mls/hr Q24H IVPB 07/16/19 20:00 07/23/19 19:59 07/16/19 19:02 Chlorhexidine Gluconate (Alondra-Hex 2%) 1 applic DAILY@2000 TOPIC 07/13/19 20:00 08/04/19 19:59 07/16/19 19:02 Dextrose (Dextrose 50%) 25 ml Q30M PRN IV Hypoglycemia 07/13/19 01:30 08/11/19 11:59 Dextrose (Dextrose 50%) 50 ml Q30M PRN IV Hypoglycemia 07/13/19 01:30 08/11/19 11:59 Finasteride (Proscar) 5 mg DAILY ORAL 07/14/19 09:00 08/13/19 08:59 07/17/19 09:46 Hydralazine HCl (Apresoline) 10 mg Q4H PRN IV bp over 160 syst 07/13/19 01:38 08/05/19 01:37 Insulin Aspart (NovoLOG) Q6HR SUBQ 07/13/19 12:00 08/11/19 16:29 07/17/19 12:43 Nitroglycerin (Ntg) 1 patch Q24H TDERMAL 07/13/19 12:30 08/05/19 12:29 07/17/19 12:49 Pantoprazole (Protonix) 40 mg Q12HR IV 07/13/19 09:00 08/04/19 11:14 07/17/19 09:47 Potassium Chloride (K-Dur) 20 meq TWICE A DAY GT 07/14/19 13:10 08/13/19 13:09 07/17/19 09:46 Promethazine HCl/ Codeine (Phenergan with Codeine) 5 ml Q4H PRN ORAL For Cough 07/13/19 01:41 08/03/19 01:40 Tamsulosin HCl (Flomax) 0.4 mg BEDTIME ORAL 07/13/19 21:00 08/12/19 20:59 07/16/19 20:26 Mirian Page M.D. Jul 17, 2019 17:40
--- NOTE | 2019-07-17 19:05 | NUR ---
HAND-OFF: Report given to .LUAN HERMAN.
--- NOTE | 2019-07-17 19:15 | NUR ---
NURSE NOTES: Received patient from VIRG[facility] Link. Patient is aaox1, verbal, and clean. Patient is on a media monitor, running vital AF 1.2 at 60cc/hr, and skin issues noted with dressing intact. IV site right forearm 20g is intact and patent. Friend, Jhonny, at bedside and patient is responding and laughing. Oral care completed with no issues and no coughing. Bed at its lowest position, call light in reach and x3 bed rails are up. Will continue to monitor.
[2019-07-17 20:00] VITALS: BP 130/70
[2019-07-17] MEDS: Dyna-Hex 2% Top Sol 2oz TOPIC SCH (20:00)
[2019-07-17] MEDS: cefTRIAXone 1 GM in NS 55 ML IVPB SCH (20:29)
[2019-07-17] MEDS: Tamsulosin 0.4mg cap ORAL SCH (20:30)
[2019-07-18] VITALS: BP 137/69
[2019-07-18] MEDS: NovoLOG Insulin Flexpen SUBQ SCH ×4 (00:14→18:32)
[2019-07-18 04:00] VITALS: BP 114/60
[2019-07-18 05:27] LABS: BASOPHILS % (AUTO) 0.6 % (0.0-2.0); EOSINOPHILS % (AUTO) 1.1 % (0.0-3.0); HEMATOCRIT 27.7 % (42.0-52.0); LYMPHOCYTES % (AUTO) 10.1 % (20.0-45.0); MEAN CORPUSCULAR VOLUME 85 FL (80-99); MONOCYTES % (AUTO) 9.7 % (1.0-10.0); NEUTROPHILS % (AUTO) 78.4 % (45.0-75.0); PLATELET COUNT 159 K/UL (150-450); RED BLOOD COUNT 3.24 M/UL (4.70-6.10); RED CELL DISTRIBUTION WIDTH 16.2 % (11.6-14.8); WHITE BLOOD COUNT 10.7 K/UL (4.8-10.8)
[2019-07-18 05:39] LABS: ANION GAP 1 mmol/L (5-15); BLOOD UREA NITROGEN 27 mg/dL (7-18); CALCIUM 8.3 MG/DL (8.5-10.1); CARBON DIOXIDE 37 MMOL/L (21-32); CHLORIDE 108 MMOL/L (98-107); CREATININE 0.6 MG/DL (0.55-1.30); POTASSIUM 4.2 MMOL/L (3.5-5.1); SODIUM 146 MMOL/L (136-145)
--- NOTE | 2019-07-18 07:15 | NUR ---
HAND-OFF: Report given to VIRGIL Hammond.
--- NOTE | 2019-07-18 07:15 | NUR ---
NURSE NOTES: RECEIVED BED SIDE REPORT FROM LUAN HERMAN STAFF OF [employer]. RECEIVED PT WITH HOB ELEVATED 45 DEGREE ,EYES OPES WITH VERBAL AND TACTILE STIMULI. RENDERED ORAL HYGIENE AND SX,D LG AMT OF WHITE THICK SECRETIONS. PT USING O2 @ 2l/mits via N/C SAT 98%. F/C DRAINING WELL SHELDON URINE COLOR. FULL BODY ASSESSMENT DONE.PT REPOSITIONING Q2HRS TO PROVIDE COMFORT AND PREVENT FURTHER SKIN BREAK DOWN.TOLERATING WELL GTF VITAL A.F 1.2 @ 60CC/HRS, NO RESIDUAL NOTED AT THIS TIME. WILL CONT TO MONITOR.
[2019-07-18 08:00] VITALS: BP 134/62
--- NOTE | 2019-07-18 08:43 | Urology Progress Note ---
Assessment/Plan Assessment/Plan: 1. Left-sided hydronephrosis, poss chronic. 2. Proteinuria. 3. Hematuria. 4. Pyuria. 5. Urinary retention. 6. BPH history. 7. Rule out neurogenic bladder. 8. Mild acute kidney injury, improved. 9. Left ureteral calculus. 10. Right renal calculi. 11. Cystitis. 12. Left inguinal hernia. monitor clinically maintain nixon hand irrigate PRN abx as ordered monitor renal fxn flomax and proscar added will consider tx of stones once more medically stabilized currently no flank pain and normal Cr voiding trial at some point? d/w Dr. Glover Subjective Allergies: Coded Allergies: PENICILLINS (Verified Allergy, Unknown, 07/04/19) Subjective all noted, feels fair, no pain Objective Last 24 Hour Vital Signs Date Time Temp Pulse Resp B/P (MAP) Pulse Ox O2 Delivery O2 Flow Rate FiO2 07/18/19 04:00 98.1 63 25 114/60 (78) 95 07/18/19 04:00 Nasal Cannula 2.0 Nasal Cannula 2.0 07/18/19 04:00 65 07/18/19 00:00 97.9 65 21 137/69 (91) 100 07/18/19 00:00 74 07/18/19 00:00 Nasal Cannula 2.0 Nasal Cannula 2.0 07/17/19 20:00 98.9 81 18 130/70 (90) 100 07/17/19 20:00 Nasal Cannula 2.0 Nasal Cannula 2.0 07/17/19 19:40 80 20 99 Nasal Cannula 2.0 28 07/17/19 19:40 99 Nasal Cannula 2.0 28 07/17/19 19:02 79 07/17/19 17:00 98.8 82 22 152/70 (97) 100 07/17/19 16:00 Nasal Cannula 2.0 Nasal Cannula 2.0 07/17/19 16:00 86 07/17/19 15:16 100 Nasal Cannula 2.0 28 07/17/19 15:01 80 22 100 Nasal Cannula 2.0 28 72 17 100 07/17/19 12:49 150/71 07/17/19 12:00 Nasal Cannula 2.0 Nasal Cannula 2.0 07/17/19 12:00 98.1 71 21 150/71 (97) 100 07/17/19 12:00 75 Intake and Output 2/12/20 2/13/20 19:00 07:00 Intake Total 1220 ml 815 ml Output Total 1101 ml 1000 ml Balance 119 ml -185 ml Free Water 300 ml 100 ml IV Total 200 ml 55 ml Tube Feeding 720 ml 660 ml Output Urine Total 1100 ml 1000 ml Stool Total 1 ml # Voids 1 Microbiology Date/Time Source Procedure Growth Status 07/11/19 12:00 Blood Blood Culture - Final NO GROWTH AFTER 5 DAYS Complete 07/04/19 10:15 Sputum Gram Stain - Final Complete 07/04/19 10:15 Sputum Culture - Final Nicolle Albicans Usual Respiratory Valery Complete 07/11/19 21:20 Urine,Clean Catch Urine Culture - Final NO GROWTH AFTER 48 HOURS Complete 07/04/19 00:43 Rectum - Final NO CARBAPENEM-RESISTANT ENTEROBACTERI... Complete Current Medications Medications (Trade) Dose Ordered Sig/Genoveva Route PRN Reason Start Time Stop Time Status Last Admin Dose Admin Acetaminophen (Tylenol) 650 mg Q6H PRN ORAL Mild Pain/Temp > 100.5 07/13/19 01:36 08/03/19 01:35 Albuterol/ Ipratropium (Albuterol/ Ipratropium) 3 ml Q4HRT PRN HHN sob 07/13/19 11:00 07/18/19 10:59 07/17/19 15:01 Ceftriaxone Sodium 1 gm/ Sodium Chloride 55 ml @ 110 mls/hr Q24H IVPB 07/16/19 20:00 07/23/19 19:59 07/17/19 20:29 Dextrose (Dextrose 50%) 25 ml Q30M PRN IV Hypoglycemia 07/13/19 01:30 08/11/19 11:59 Dextrose (Dextrose 50%) 50 ml Q30M PRN IV Hypoglycemia 07/13/19 01:30 08/11/19 11:59 Finasteride (Proscar) 5 mg DAILY ORAL 07/14/19 09:00 08/13/19 08:59 07/17/19 09:46 Hydralazine HCl (Apresoline) 10 mg Q4H PRN IV bp over 160 syst 07/13/19 01:38 08/05/19 01:37 Insulin Aspart (NovoLOG) Q6HR SUBQ 07/13/19 12:00 08/11/19 16:29 07/18/19 00:14 Nitroglycerin (Ntg) 1 patch Q24H TDERMAL 07/13/19 12:30 08/05/19 12:29 07/17/19 12:49 Pantoprazole (Protonix) 40 mg Q12HR IV 07/13/19 09:00 08/04/19 11:14 07/17/19 20:32 Potassium Chloride (K-Dur) 20 meq TWICE A DAY GT 07/14/19 13:10 08/13/19 13:09 07/17/19 18:04 Promethazine HCl/ Codeine (Phenergan with Codeine) 5 ml Q4H PRN ORAL For Cough 07/13/19 01:41 08/03/19 01:40 Tamsulosin HCl (Flomax) 0.4 mg BEDTIME ORAL 07/13/19 21:00 08/12/19 20:59 07/17/19 20:30 Laboratory Tests 07/18/19 04:20: White Blood Count 10.7, Red Blood Count 3.24L, Hemoglobin 9.0L, Hematocrit 27.7L , Mean Corpuscular Volume 85, Mean Corpuscular Hemoglobin 27.9, Mean Corpuscular Hemoglobin Concent 32.7, Red Cell Distribution Width 16.2H, Platelet Count 159, Mean Platelet Volume 7.3, Neutrophils (%) (Auto) 78.4H, Lymphocytes (%) (Auto) 10.1L, Monocytes (%) (Auto) 9.7, Eosinophils (%) (Auto) 1.1, Basophils (%) (Auto) 0.6, Sodium Level 146H, Potassium Level 4.2, Chloride Level 108H, Carbon Dioxide Level 37H, Anion Gap 1L, Blood Urea Nitrogen 27H, Creatinine 0.6, Estimat Glomerular Filtration Rate > 60, Glucose Level 153H, Calcium Level 8.3L Height (Feet): 5 Height (Inches): 8.00 Weight (Pounds): 195 Objective exam stable nixon indwelling urine slightly blood-tinged CT A/P (07/12) noted Clayton Callejas MD Jul 18, 2019 08:43
[2019-07-18] MEDS: Pantoprazole Inj IV SCH ×2 (09:14→21:47)
[2019-07-18 10:00] LABS: ALANINE AMINOTRANSFERASE 44 U/L (12-78); ALBUMIN 2.3 G/DL (3.4-5.0); ALKALINE PHOSPHATASE 96 U/L (46-116); ASPARTATE AMINO TRANSFERASE 21 U/L (15-37); BILIRUBIN,DIRECT < 0.1 MG/DL (0.0-0.3); BILIRUBIN,TOTAL 0.2 MG/DL (0.2-1.0); PHOSPHORUS 2.8 MG/DL (2.5-4.9)
--- NOTE | 2019-07-18 10:59 | Infectious Diseases Prog Note ---
Assessment/Plan Assessment/Plan Assessment: Shock, SP s/p cardiac arrest 07/05 Obstruct uropathy, L hydrouretenephrosis -07/12 CT abd/p: -07/12 CT abd/p: Moderate left hydroureteronephrosis secondary to a 1.5 cm left mid to distal ureter stone. Multiple nonobstructive stones within the right kidney. Thickening of the wall the urinary bladder consistent with cystitis. Juan catheter in good position. 10 x 7 cm left inguinal hernia containing bowel. No evidence of obstruction.Trace left pleural effusion. Bilateral posterior basal atelectasis. Sepsis, Sp Probable UTI, sp rx Acute hypoxic respiratory failure, intubated 07/05; extubated 07/11 Aspiration pneumonia vs pneumonitis Gram positive bacteremia- contaminant -07/15 CXR:Infiltrate and/or pleural effusion suspected at the left lung base. Mild pulmonary vascular congestion not excluded. Correlate clinically. -07/13 CXR: Improving pulmonary venous congestion with unchanged small left pleural effusion and slight worsening of left basilar infiltrate, indeterminate between atelectasis and pneumonia -07/11 u/a wbc 2-4, nit neg, leuk +3; ucx Neg Bcx Neg -07/06 Bcx Neg -07/05 CXR:Mild CHF -u/a wbc 5-10, nit neg, leuk +2; ucx Neg -Bcx 06/08 dipteriods -sp cx usual resp rupert -CXR: No acute process -influenza sc neg -v. duplex: no DVT -V/q scan:Findings are deemed low probability for pulmonary embolus Fever; low grade, recurrent- SP Mild leukocytosis,SP CAAR; improving Dm2 dysphagia s/p GT hx of PNA parkinson disease HTN bed bound [place] resident Plan: -Continue to monitor off abx -07/17 SP Ceftriaxone #3 -07/15 SP Flagyl # 11, Cefepime #12 -/ SP IV Vancomycin #5 -07/04 SP Levaquin x1 -f/u cx -Monitor CBC/CMP, temperatures -aspiration precautions -GT care -Cards, nephro f/u -Cdiff if diarrhea -uro f/u Thank you for this consultation. Will continue to follow along with you. Discussed with RN. Subjective Allergies: Coded Allergies: PENICILLINS (Verified Allergy, Unknown, 07/04/19) Subjective afebrile no leukocytosis Objective Vital Signs Last 24 Hour Vital Signs Date Time Temp Pulse Resp B/P (MAP) Pulse Ox O2 Delivery O2 Flow Rate FiO2 07/18/19 04:00 98.1 63 25 114/60 (78) 95 07/18/19 04:00 Nasal Cannula 2.0 Nasal Cannula 2.0 07/18/19 04:00 65 07/18/19 00:00 97.9 65 21 137/69 (91) 100 07/18/19 00:00 74 07/18/19 00:00 Nasal Cannula 2.0 Nasal Cannula 2.0 07/17/19 20:00 98.9 81 18 130/70 (90) 100 07/17/19 20:00 Nasal Cannula 2.0 Nasal Cannula 2.0 07/17/19 19:40 80 20 99 Nasal Cannula 2.0 28 07/17/19 19:40 99 Nasal Cannula 2.0 28 07/17/19 19:02 79 07/17/19 17:00 98.8 82 22 152/70 (97) 100 07/17/19 16:00 Nasal Cannula 2.0 Nasal Cannula 2.0 07/17/19 16:00 86 07/17/19 15:16 100 Nasal Cannula 2.0 28 07/17/19 15:01 80 22 100 Nasal Cannula 2.0 28 72 17 100 07/17/19 12:49 150/71 07/17/19 12:00 Nasal Cannula 2.0 Nasal Cannula 2.0 07/17/19 12:00 98.1 71 21 150/71 (97) 100 07/17/19 12:00 75 Height (Feet): 5 Height (Inches): 8.00 Weight (Pounds): 195 Objective General Appearance: no distress HEENT: normocephalic, atraumatic Neck: non-tender, normal alignment Respiratory/Chest: chest wall non-tender, lungs clear Cardiovascular/Chest: normal rate Abdomen: normal bowel sounds, non tender Extremities: normal range of motion Laboratory Tests Test 07/18/19 04:20 White Blood Count 10.7 K/UL (4.8-10.8) Red Blood Count 3.24 M/UL (4.70-6.10) L Hemoglobin 9.0 G/DL (14.2-18.0) L Hematocrit 27.7 % (42.0-52.0) L Mean Corpuscular Volume 85 FL (80-99) Mean Corpuscular Hemoglobin 27.9 PG (27.0-31.0) Mean Corpuscular Hemoglobin Concent 32.7 G/DL (32.0-36.0) Red Cell Distribution Width 16.2 % (11.6-14.8) H Platelet Count 159 K/UL (150-450) Mean Platelet Volume 7.3 FL (6.5-10.1) Neutrophils (%) (Auto) 78.4 % (45.0-75.0) H Lymphocytes (%) (Auto) 10.1 % (20.0-45.0) L Monocytes (%) (Auto) 9.7 % (1.0-10.0) Eosinophils (%) (Auto) 1.1 % (0.0-3.0) Basophils (%) (Auto) 0.6 % (0.0-2.0) Sodium Level 146 MMOL/L (136-145) H Potassium Level 4.2 MMOL/L (3.5-5.1) Chloride Level 108 MMOL/L (98-107) H Carbon Dioxide Level 37 MMOL/L (21-32) H Anion Gap 1 mmol/L (5-15) L Blood Urea Nitrogen 27 mg/dL (7-18) H Creatinine 0.6 MG/DL (0.55-1.30) Estimat Glomerular Filtration Rate > 60 mL/min (>60) Glucose Level 153 MG/DL (74-106) H Calcium Level 8.3 MG/DL (8.5-10.1) L Phosphorus Level 2.8 MG/DL (2.5-4.9) Magnesium Level 2.0 MG/DL (1.8-2.4) Total Bilirubin 0.2 MG/DL (0.2-1.0) Direct Bilirubin < 0.1 MG/DL (0.0-0.3) Aspartate Amino Transf (AST/SGOT) 21 U/L (15-37) Alanine Aminotransferase (ALT/SGPT) 44 U/L (12-78) Alkaline Phosphatase 96 U/L (46-116) Total Protein 5.8 G/DL (6.4-8.2) L Albumin 2.3 G/DL (3.4-5.0) L Current Medications Medications (Trade) Dose Ordered Sig/Genoveva Route PRN Reason Start Time Stop Time Status Last Admin Dose Admin Acetaminophen (Tylenol) 650 mg Q6H PRN ORAL Mild Pain/Temp > 100.5 07/13/19 01:36 08/03/19 01:35 Albuterol/ Ipratropium (Albuterol/ Ipratropium) 3 ml Q4HRT PRN HHN sob 07/13/19 11:00 07/18/19 10:59 07/17/19 15:01 Ceftriaxone Sodium 1 gm/ Sodium Chloride 55 ml @ 110 mls/hr Q24H IVPB 07/16/19 20:00 07/23/19 19:59 07/17/19 20:29 Dextrose (Dextrose 50%) 25 ml Q30M PRN IV Hypoglycemia 07/13/19 01:30 08/11/19 11:59 Dextrose (Dextrose 50%) 50 ml Q30M PRN IV Hypoglycemia 07/13/19 01:30 08/11/19 11:59 Finasteride (Proscar) 5 mg DAILY ORAL 07/14/19 09:00 08/13/19 08:59 07/18/19 09:13 Hydralazine HCl (Apresoline) 10 mg Q4H PRN IV bp over 160 syst 07/13/19 01:38 08/05/19 01:37 Insulin Aspart (NovoLOG) Q6HR SUBQ 07/13/19 12:00 08/11/19 16:29 07/18/19 00:14 Nitroglycerin (Ntg) 1 patch Q24H TDERMAL 07/13/19 12:30 08/05/19 12:29 07/17/19 12:49 Pantoprazole (Protonix) 40 mg Q12HR IV 07/13/19 09:00 08/04/19 11:14 07/18/19 09:14 Potassium Chloride (K-Dur) 20 meq TWICE A DAY GT 07/14/19 13:10 08/13/19 13:09 07/18/19 09:13 Promethazine HCl/ Codeine (Phenergan with Codeine) 5 ml Q4H PRN ORAL For Cough 07/13/19 01:41 08/03/19 01:40 Tamsulosin HCl (Flomax) 0.4 mg BEDTIME ORAL 07/13/19 21:00 08/12/19 20:59 07/17/19 20:30 Mirian Page M.D. Jul 18, 2019 10:58
--- NOTE | 2019-07-18 11:16 | Nephrology Progress Note ---
Assessment/Plan Problem List: (1) RIA (acute kidney injury) (2) Cardiac arrest with successful resuscitation (3) Respiratory failure with hypoxia (4) Hydronephrosis Assessment patient have Ria due to Low BP and s/p arrest elevated liver enzymes for same reason others: 1. Acute hypoxemic respiratory failure. 2. Hypotension possible sepsis. 3. Diabetes type 2. 4. Parkinson disease. 5. Hypercholesterolemia. 6. EjFx 65% reported 7. Dysphagia. 8. Benign prostatic hypertrophy. Plan Cr 1.6 now wnl extubated 2/6 Nitro- Phos , K , Mag supplement as needed keep BP above 100 syst Pulm support monitor renal parameters discussed with RN VALENTINA: Moderate left hydronephrosis. Juan catheter. Echogenic right kidney. Suspected medical renal disease. Subjective ROS Limited/Unobtainable: No Constitutional: Reports: malaise, weakness Objective Objective Last 24 Hour Vital Signs Date Time Temp Pulse Resp B/P (MAP) Pulse Ox O2 Delivery O2 Flow Rate FiO2 07/18/19 08:00 Nasal Cannula 2.0 Nasal Cannula 2.0 07/18/19 04:00 98.1 63 25 114/60 (78) 95 07/18/19 04:00 Nasal Cannula 2.0 Nasal Cannula 2.0 07/18/19 04:00 65 07/18/19 00:00 97.9 65 21 137/69 (91) 100 07/18/19 00:00 74 07/18/19 00:00 Nasal Cannula 2.0 Nasal Cannula 2.0 07/17/19 20:00 98.9 81 18 130/70 (90) 100 07/17/19 20:00 Nasal Cannula 2.0 Nasal Cannula 2.0 07/17/19 19:40 80 20 99 Nasal Cannula 2.0 28 07/17/19 19:40 99 Nasal Cannula 2.0 28 07/17/19 19:02 79 07/17/19 17:00 98.8 82 22 152/70 (97) 100 07/17/19 16:00 Nasal Cannula 2.0 Nasal Cannula 2.0 07/17/19 16:00 86 07/17/19 15:16 100 Nasal Cannula 2.0 28 07/17/19 15:01 80 22 100 Nasal Cannula 2.0 28 72 17 100 07/17/19 12:49 150/71 07/17/19 12:00 Nasal Cannula 2.0 Nasal Cannula 2.0 07/17/19 12:00 98.1 71 21 150/71 (97) 100 07/17/19 12:00 75 Intake and Output 07/17/19 07/18/19 19:00 07:00 Intake Total 1220 ml 815 ml Output Total 1101 ml 1000 ml Balance 119 ml -185 ml Free Water 300 ml 100 ml IV Total 200 ml 55 ml Tube Feeding 720 ml 660 ml Output Urine Total 1100 ml 1000 ml Stool Total 1 ml # Voids 1 Laboratory Tests 07/18/19 04:20: White Blood Count 10.7, Red Blood Count 3.24L, Hemoglobin 9.0L, Hematocrit 27.7L , Mean Corpuscular Volume 85, Mean Corpuscular Hemoglobin 27.9, Mean Corpuscular Hemoglobin Concent 32.7, Red Cell Distribution Width 16.2H, Platelet Count 159, Mean Platelet Volume 7.3, Neutrophils (%) (Auto) 78.4H, Lymphocytes (%) (Auto) 10.1L, Monocytes (%) (Auto) 9.7, Eosinophils (%) (Auto) 1.1, Basophils (%) (Auto) 0.6, Sodium Level 146H, Potassium Level 4.2, Chloride Level 108H, Carbon Dioxide Level 37H, Anion Gap 1L, Blood Urea Nitrogen 27H, Creatinine 0.6, Estimat Glomerular Filtration Rate > 60, Glucose Level 153H, Calcium Level 8.3L, Phosphorus Level 2.8, Magnesium Level 2.0, Total Bilirubin 0.2, Direct Bilirubin < 0.1, Aspartate Amino Transf (AST/SGOT) 21, Alanine Aminotransferase (ALT/SGPT) 44, Alkaline Phosphatase 96, Total Protein 5.8L, Albumin 2.3L Height (Feet): 5 Height (Inches): 8.00 Weight (Pounds): 195 General Appearance: no apparent distress Cardiovascular: normal rate Respiratory/Chest: decreased breath sounds Abdomen: distended Objective no change Oskar Mohr MD Jul 18, 2019 11:16
[2019-07-18 12:00] VITALS: BP 134/62
--- NOTE | 2019-07-18 12:18 | Pulmonology Progress Note ---
Assessment/Plan Problems: (1) Cardiac arrest with successful resuscitation (2) Respiratory failure with hypoxia (3) Sepsis (4) CARA (acute kidney injury) (5) Anemia (6) Hypertensive heart disease (7) BPH (benign prostatic hyperplasia) (8) DVT (deep venous thrombosis) (9) Parkinson disease (10) Diabetes mellitus (11) Feeding by G-tube Assessment/Plan wbc wnl, afebrile bun/creatinine better no new cultures doing better off abx tolerating diet aspiration precaution titrate fio2 to sat of 92% sliding sclae\ swallow study for oral satisfaction and PT for mobility in bed Subjective ROS Limited/Unobtainable: Yes Constitutional: Reports: no symptoms HEENT: Repors: no symptoms Allergies: Coded Allergies: PENICILLINS (Verified Allergy, Unknown, 07/04/19) Objective Last 24 Hour Vital Signs Date Time Temp Pulse Resp B/P (MAP) Pulse Ox O2 Delivery O2 Flow Rate FiO2 07/18/19 08:00 97.9 71 18 134/62 (86) 95 07/18/19 08:00 Nasal Cannula 2.0 Nasal Cannula 2.0 07/18/19 08:00 72 07/18/19 04:00 98.1 63 25 114/60 (78) 95 07/18/19 04:00 Nasal Cannula 2.0 Nasal Cannula 2.0 07/18/19 04:00 65 07/18/19 00:00 97.9 65 21 137/69 (91) 100 07/18/19 00:00 74 07/18/19 00:00 Nasal Cannula 2.0 Nasal Cannula 2.0 07/17/19 20:00 98.9 81 18 130/70 (90) 100 07/17/19 20:00 Nasal Cannula 2.0 Nasal Cannula 2.0 07/17/19 19:40 80 20 99 Nasal Cannula 2.0 28 07/17/19 19:40 99 Nasal Cannula 2.0 28 07/17/19 19:02 79 07/17/19 17:00 98.8 82 22 152/70 (97) 100 07/17/19 16:00 Nasal Cannula 2.0 Nasal Cannula 2.0 07/17/19 16:00 86 07/17/19 15:16 100 Nasal Cannula 2.0 28 07/17/19 15:01 80 22 100 Nasal Cannula 2.0 28 72 17 100 07/17/19 12:49 150/71 Intake and Output 07/17/19 07/18/19 19:00 07:00 Intake Total 1220 ml 815 ml Output Total 1101 ml 1000 ml Balance 119 ml -185 ml Free Water 300 ml 100 ml IV Total 200 ml 55 ml Tube Feeding 720 ml 660 ml Output Urine Total 1100 ml 1000 ml Stool Total 1 ml # Voids 1 General Appearance: WD/WN HEENT: normocephalic, atraumatic Respiratory/Chest: chest wall non-tender, lungs clear Cardiovascular: normal peripheral pulses, normal rate Abdomen: normal bowel sounds, no organomegaly Genitourinary: normal external genitalia Extremities: no clubbing Skin: no ulcers Laboratory Tests 07/18/19 04:20: White Blood Count 10.7, Red Blood Count 3.24L, Hemoglobin 9.0L, Hematocrit 27.7L , Mean Corpuscular Volume 85, Mean Corpuscular Hemoglobin 27.9, Mean Corpuscular Hemoglobin Concent 32.7, Red Cell Distribution Width 16.2H, Platelet Count 159, Mean Platelet Volume 7.3, Neutrophils (%) (Auto) 78.4H, Lymphocytes (%) (Auto) 10.1L, Monocytes (%) (Auto) 9.7, Eosinophils (%) (Auto) 1.1, Basophils (%) (Auto) 0.6, Sodium Level 146H, Potassium Level 4.2, Chloride Level 108H, Carbon Dioxide Level 37H, Anion Gap 1L, Blood Urea Nitrogen 27H, Creatinine 0.6, Estimat Glomerular Filtration Rate > 60, Glucose Level 153H, Calcium Level 8.3L, Phosphorus Level 2.8, Magnesium Level 2.0, Total Bilirubin 0.2, Direct Bilirubin < 0.1, Aspartate Amino Transf (AST/SGOT) 21, Alanine Aminotransferase (ALT/SGPT) 44, Alkaline Phosphatase 96, Total Protein 5.8L, Albumin 2.3L Current Medications Medications (Trade) Dose Ordered Sig/Genoveva Route PRN Reason Start Time Stop Time Status Last Admin Dose Admin Acetaminophen (Tylenol) 650 mg Q6H PRN ORAL Mild Pain/Temp > 100.5 07/13/19 01:36 08/03/19 01:35 Dextrose (Dextrose 50%) 25 ml Q30M PRN IV Hypoglycemia 07/13/19 01:30 08/11/19 11:59 Dextrose (Dextrose 50%) 50 ml Q30M PRN IV Hypoglycemia 07/13/19 01:30 08/11/19 11:59 Finasteride (Proscar) 5 mg DAILY ORAL 07/14/19 09:00 08/13/19 08:59 07/18/19 09:13 Hydralazine HCl (Apresoline) 10 mg Q4H PRN IV bp over 160 syst 07/13/19 01:38 08/05/19 01:37 Insulin Aspart (NovoLOG) Q6HR SUBQ 07/13/19 12:00 08/11/19 16:29 07/18/19 00:14 Nitroglycerin (Ntg) 1 patch Q24H TDERMAL 07/13/19 12:30 08/05/19 12:29 07/17/19 12:49 Pantoprazole (Protonix) 40 mg Q12HR IV 07/13/19 09:00 08/04/19 11:14 07/18/19 09:14 Potassium Chloride (K-Dur) 20 meq TWICE A DAY GT 07/14/19 13:10 08/13/19 13:09 07/18/19 09:13 Promethazine HCl/ Codeine (Phenergan with Codeine) 5 ml Q4H PRN ORAL For Cough 07/13/19 01:41 08/03/19 01:40 Tamsulosin HCl (Flomax) 0.4 mg BEDTIME ORAL 07/13/19 21:00 08/12/19 20:59 07/17/19 20:30 Kathryn Lopez MD Jul 18, 2019 12:18
--- NOTE | 2019-07-18 12:34 | NUR ---
CASE MANAGEMENT: REVIEW 07/18/2019 SI:Cardiac arrest with successful resuscitation. T 98.1 HR 63 RR 25 B/P 114/60 SATS 95% ON 2L/NC LABS: NA 146 CL 108 CO2 37 BUN 27 GLU 153 CA 8.3 IS:KDUR GT BID FLOMAX PO QHS PROSCAR PO QD INSULIN ASPART SUBQ Q6H SDU PLAN OF CARE: maintain nixon>> hand irrigate PRN ST/PT EVAL
[2019-07-18] MEDS: Nitroglycerin Patch 0.4mg TDERMAL SCH (13:08)
--- NOTE | 2019-07-18 15:54 | NUR ---
ST NOTES: REFERRED FOR SWALLOW EVAL BY DR. GUEVARA, SEE FULL REPORT. DYSPHAGIA RISK FACTORS FOR THIS 83 Y.O.M.: ACUTE ISSUES FOR DOA ON 07/04/19: SEPSIS (UTI), PNA (? ASPIRATION RELATED H/O PNA AND DYSPHAGIA HAS GI BUT TAKING ORAL GRAT/MEALS AT SNF), RESP FAILURE HYPOXIA, PLACED ON NONREBREATHER 15 LITERS GOODS SATS NOW WAS IN 80s, RESP RATE HIGH 26 INITIALLY, ON BIPAP 07/04/19, CARDIAC ARREST 07/05/19 INTUBATED ON VENT 07/06-07/11/19 (NOW ON 2 LITERS NC GOOD SATS AND Fi02 28, resp rate 18 to high of 25, FEVER, COUGH, HYPOTENSION, LUNGS/CXR RALES/RHONCHI/INFILTRATE L BASE, SIGNIFICANT OROPHARYNGEAL SECRETIONS NOW PER RN. H/O ADULT FTT, PROTEIN-CAROLIN MALNUTRITION, DYSPHAGIA GT, GERD MEDS, PNA, PD (NOT ON MEDS FOR THIS), AKF, RESP FAILURE, DM2,CARDIOMEGALY. PER HIS , PATIENT HAD GT PLACED 12/2018 AT [facility] FROM DECEMBER TO FEB 2019 (HAD A MOD BARIUM SWALLOW STUDY THERE). HE HAD A GOOD APPETITE AND EATING WELL AT [facility]. AT SNF ON GT FEEDINGS AND MEALS OF MECH SOFT CHOPPED AND THIN LIQUIDS AND SEEING COMM[facility]ITY MENT[facility] HEALTH WORKER FOR DYSPHAGIA MANAGEMENT AND TX. NOW ONLY RECEIVING GT FEEDINGS NO PO AT THIS TIME. ALERT BUT VERY TIRED. MOUTH BREATHING AND VOICE IS VERY SOFT AND BARELY AUDIBLE. CAN EXPRESS SOME BASIC NEEDS. ADEQUATE DENTITION. INITIAL IMPRESSIONS: HIGH RISK FOR PERSISTENT AND WORSENED OROPHARYNGEAL DYSPHAGIA HOLD ON PO TRIALS SINCE HE NEEDS FREQUENT OROPHARYNGEAL SUCTION (MODERATE AMOUNTS) PER RN SLOWER TONGUE MOVEMENTS AND REDUCED ROM AND STRENGTH OVERALL LIPS GROSSLY FUNCTIONAL COUGH AND VOICE WEAK/SOFT/WET AT TIMES DUE TO SECRETIONS HIGH RISK FOR SILENT ASPIRATION DUE TO PD AND CARDIAC ARREST HIGH RISK FOR POOR PO INTAKE DUE TO VARIABLE ALERTNESS AND FATIGUE RECOMMENDATIONS CONTINUE WITH PEG FEEDINGS (ASP PREC DURING FEEDINGS) AND ORAL CARE/SUCTION PRN MONITOR FOR MOD BARIUM SWALLOW STUDY READINESS COMPLETE COG-COM EVAL/TX FOR COMMUNICATION TIPS EDUCATED/TRAINED STAFF AND HIS IN POSTED ORAL CARE/SUCTION AND PEG FEEDING ASP PRECAUTIONS. WANTS TO PARTICIPATE IN ORAL CARE.
[2019-07-18 16:00] VITALS: BP 126/72
--- NOTE | 2019-07-18 16:27 | Cardiac Electrophysiology PN ---
Assessment/Plan Assessment/Plan 1. Status post bradycardic arrest off any sinus node or AV destinee blocking agents. 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 Likely precipitated by respiratory failure The first two troponins on admission were negative. 5 follow up troponins were mildly elevated likely due to Code. No further critical hillary episode on tele. Lowest HR 50s 2. NSTEMI. Due to arrest 3. Respiratory failure. D. Dimer positive. VQ scan pre code was low probability. Extubated 07/11/19 3. Hypotension. Improved with IV fluid 5. Dehydration and hyperatremia, resolved 6. Dysphagia, status post PEG 7. Diabetes. 8. Benign prostatic hypertrophy.SKYLER Callejas. S/P CT abdomen that showed Left hydronephrosis 9. Full code. CARI RN Subjective Subjective PEG feeding ongoing. No events in NAD Objective Last 24 Hour Vital Signs Date Time Temp Pulse Resp B/P (MAP) Pulse Ox O2 Delivery O2 Flow Rate FiO2 07/18/19 13:08 134/62 07/18/19 12:00 97.9 68 20 134/62 (86) 93 07/18/19 08:00 97.9 71 18 134/62 (86) 95 07/18/19 08:00 Nasal Cannula 2.0 Nasal Cannula 2.0 07/18/19 08:00 72 07/18/19 04:00 98.1 63 25 114/60 (78) 95 07/18/19 04:00 Nasal Cannula 2.0 Nasal Cannula 2.0 07/18/19 04:00 65 07/18/19 00:00 97.9 65 21 137/69 (91) 100 07/18/19 00:00 74 07/18/19 00:00 Nasal Cannula 2.0 Nasal Cannula 2.0 07/17/19 20:00 98.9 81 18 130/70 (90) 100 07/17/19 20:00 Nasal Cannula 2.0 Nasal Cannula 2.0 07/17/19 19:40 80 20 99 Nasal Cannula 2.0 28 07/17/19 19:40 99 Nasal Cannula 2.0 28 07/17/19 19:02 79 07/17/19 17:00 98.8 82 22 152/70 (97) 100 Intake and Output 07/17/19 07/18/19 19:00 07:00 Intake Total 1220 ml 815 ml Output Total 1101 ml 1000 ml Balance 119 ml -185 ml Free Water 300 ml 100 ml IV Total 200 ml 55 ml Tube Feeding 720 ml 660 ml Output Urine Total 1100 ml 1000 ml Stool Total 1 ml # Voids 1 Laboratory Tests Test 07/18/19 04:20 White Blood Count 10.7 K/UL (4.8-10.8) Red Blood Count 3.24 M/UL (4.70-6.10) L Hemoglobin 9.0 G/DL (14.2-18.0) L Hematocrit 27.7 % (42.0-52.0) L Mean Corpuscular Volume 85 FL (80-99) Mean Corpuscular Hemoglobin 27.9 PG (27.0-31.0) Mean Corpuscular Hemoglobin Concent 32.7 G/DL (32.0-36.0) Red Cell Distribution Width 16.2 % (11.6-14.8) H Platelet Count 159 K/UL (150-450) Mean Platelet Volume 7.3 FL (6.5-10.1) Neutrophils (%) (Auto) 78.4 % (45.0-75.0) H Lymphocytes (%) (Auto) 10.1 % (20.0-45.0) L Monocytes (%) (Auto) 9.7 % (1.0-10.0) Eosinophils (%) (Auto) 1.1 % (0.0-3.0) Basophils (%) (Auto) 0.6 % (0.0-2.0) Sodium Level 146 MMOL/L (136-145) H Potassium Level 4.2 MMOL/L (3.5-5.1) Chloride Level 108 MMOL/L (98-107) H Carbon Dioxide Level 37 MMOL/L (21-32) H Anion Gap 1 mmol/L (5-15) L Blood Urea Nitrogen 27 mg/dL (7-18) H Creatinine 0.6 MG/DL (0.55-1.30) Estimat Glomerular Filtration Rate > 60 mL/min (>60) Glucose Level 153 MG/DL (74-106) H Calcium Level 8.3 MG/DL (8.5-10.1) L Phosphorus Level 2.8 MG/DL (2.5-4.9) Magnesium Level 2.0 MG/DL (1.8-2.4) Total Bilirubin 0.2 MG/DL (0.2-1.0) Direct Bilirubin < 0.1 MG/DL (0.0-0.3) Aspartate Amino Transf (AST/SGOT) 21 U/L (15-37) Alanine Aminotransferase (ALT/SGPT) 44 U/L (12-78) Alkaline Phosphatase 96 U/L (46-116) Total Protein 5.8 G/DL (6.4-8.2) L Albumin 2.3 G/DL (3.4-5.0) L Objective HEAD AND NECK: Mild JVD. LUNGS: Decreased breath sounds. CARDIOVASCULAR: RRR. No G/R/M ABDOMEN: Status post G-tube. EXTREMITIES: No pitting edema. Enio Santos MD Jul 18, 2019 16:27
--- NOTE | 2019-07-18 17:09 | NUR ---
[employer] CONSOLE OPERATOR TRACK NOTE АЛЕКСАНДР received a message from ST that pt is requesting to meet w/ SW. SW attempted to meet w/ pt but he was in sleep. SW will continue to F/U. Signed: 07/18/19 at 1709 by CLIF FOUNTAIN <Co-Signature Required>
[2019-07-18] MEDS: Albuterol/Ipratropium 3ml neb HHN SCH ×2 (18:57→22:34)
--- NOTE | 2019-07-18 19:15 | NUR ---
NURSE NOTES: Received patient from VIRGIL Hammond. Patient in bed awake,alert able to verbalize needs to staff. SR on licensing worker. No SOB or distress noted. Saturating at 100% room air. Lt Hand #[id number]. GT feeding Vital AF @ 60cc/hr, no residual noted. HOB elevated. Juan cath draining well hazy kristen urine. Bed in lowest position, side rails upx2. P200 mattress for wound management in place. Bed alarm engaged. Call light within reach. Instructed patient to use call light for assistance. Will continue POC
--- NOTE | 2019-07-18 19:16 | Internal Med Progress Note ---
Subjective Date of Service: Jul 18, 2019 Physician Name Shukri Glover Attending Physician Rayshawn Woods MD Current Medications Medications (Trade) Dose Ordered Sig/Genoveva Route PRN Reason Start Time Stop Time Status Last Admin Dose Admin Acetaminophen (Tylenol) 650 mg Q6H PRN ORAL Mild Pain/Temp > 100.5 07/13/19 01:36 08/03/19 01:35 Albuterol/ Ipratropium (Albuterol/ Ipratropium) 3 ml Q4HRT HHN 07/18/19 17:26 07/23/19 17:25 07/18/19 18:57 Dextrose (Dextrose 50%) 25 ml Q30M PRN IV Hypoglycemia 07/13/19 01:30 08/11/19 11:59 Dextrose (Dextrose 50%) 50 ml Q30M PRN IV Hypoglycemia 07/13/19 01:30 08/11/19 11:59 Finasteride (Proscar) 5 mg DAILY ORAL 07/14/19 09:00 08/13/19 08:59 07/18/19 09:13 Hydralazine HCl (Apresoline) 10 mg Q4H PRN IV bp over 160 syst 07/13/19 01:38 08/05/19 01:37 Insulin Aspart (NovoLOG) Q6HR SUBQ 07/13/19 12:00 08/11/19 16:29 07/18/19 18:32 Nitroglycerin (Ntg) 1 patch Q24H TDERMAL 07/13/19 12:30 08/05/19 12:29 07/18/19 13:08 Pantoprazole (Protonix) 40 mg Q12HR IV 07/13/19 09:00 08/04/19 11:14 07/18/19 09:14 Potassium Chloride (K-Dur) 20 meq TWICE A DAY GT 07/14/19 13:10 08/13/19 13:09 07/18/19 18:31 Promethazine HCl/ Codeine (Phenergan with Codeine) 5 ml Q4H PRN ORAL For Cough 07/13/19 01:41 08/03/19 01:40 Tamsulosin HCl (Flomax) 0.4 mg BEDTIME ORAL 07/13/19 21:00 08/12/19 20:59 07/17/19 20:30 Allergies: Coded Allergies: PENICILLINS (Verified Allergy, Unknown, 07/04/19) ROS Limited/Unobtainable: Yes Subjective 83 YO M admitted with dyspnea, now respiratory failure. Cover for Int Med-Dr Woods. SURY. Extubated 07/11/19 Objective Last Vital Signs Date Time Temp Pulse Resp B/P (MAP) Pulse Ox O2 Delivery O2 Flow Rate FiO2 07/18/19 18:57 66 20 98 Nasal Cannula 2.0 28 07/18/19 16:00 98.8 126/72 (90) Laboratory Tests Test 07/18/19 04:20 White Blood Count 10.7 K/UL (4.8-10.8) Red Blood Count 3.24 M/UL (4.70-6.10) L Hemoglobin 9.0 G/DL (14.2-18.0) L Hematocrit 27.7 % (42.0-52.0) L Mean Corpuscular Volume 85 FL (80-99) Mean Corpuscular Hemoglobin 27.9 PG (27.0-31.0) Mean Corpuscular Hemoglobin Concent 32.7 G/DL (32.0-36.0) Red Cell Distribution Width 16.2 % (11.6-14.8) H Platelet Count 159 K/UL (150-450) Mean Platelet Volume 7.3 FL (6.5-10.1) Neutrophils (%) (Auto) 78.4 % (45.0-75.0) H Lymphocytes (%) (Auto) 10.1 % (20.0-45.0) L Monocytes (%) (Auto) 9.7 % (1.0-10.0) Eosinophils (%) (Auto) 1.1 % (0.0-3.0) Basophils (%) (Auto) 0.6 % (0.0-2.0) Sodium Level 146 MMOL/L (136-145) H Potassium Level 4.2 MMOL/L (3.5-5.1) Chloride Level 108 MMOL/L (98-107) H Carbon Dioxide Level 37 MMOL/L (21-32) H Anion Gap 1 mmol/L (5-15) L Blood Urea Nitrogen 27 mg/dL (7-18) H Creatinine 0.6 MG/DL (0.55-1.30) Estimat Glomerular Filtration Rate > 60 mL/min (>60) Glucose Level 153 MG/DL (74-106) H Calcium Level 8.3 MG/DL (8.5-10.1) L Phosphorus Level 2.8 MG/DL (2.5-4.9) Magnesium Level 2.0 MG/DL (1.8-2.4) Total Bilirubin 0.2 MG/DL (0.2-1.0) Direct Bilirubin < 0.1 MG/DL (0.0-0.3) Aspartate Amino Transf (AST/SGOT) 21 U/L (15-37) Alanine Aminotransferase (ALT/SGPT) 44 U/L (12-78) Alkaline Phosphatase 96 U/L (46-116) Total Protein 5.8 G/DL (6.4-8.2) L Albumin 2.3 G/DL (3.4-5.0) L Intake and Output 07/17/19 07/18/19 19:00 07:00 Intake Total 1220 ml 875 ml Output Total 1101 ml 1000 ml Balance 119 ml -125 ml Free Water 300 ml 100 ml IV Total 200 ml 55 ml Tube Feeding 720 ml 720 ml Output Urine Total 1100 ml 1000 ml Stool Total 1 ml # Voids 1 Objective PHYSICAL EXAMINATION: GENERAL: The patient is a well-developed and well-nourished male, in moderate respiratory distress. HEENT: Eyes, pupils are equal and responsive to light and accommodation. Extraocular movements are intact. NECK: Supple without lymphadenopathy. CHEST: nasal canula; Coarse breath sounds bilaterally with expiratory wheezes. Otherwise, without crackles. ABDOMINAL: Soft, nontender, and nondistended. Positive bowel sounds. No evidence of hepatosplenomegaly. Currently, no rebound or guarding noted. CARDIOVASCULAR: Tachycardic. Regular rhythm. S1 and S2 are normal without murmurs, rubs, or gallops. GENITOURINARY: Deferred. NEUROLOGICAL: Cranial nerves II to XII are grossly intact without focal deficits. EXTREMITIES: Negative for clubbing, cyanosis, or edema. Assessment/Plan Assessment/Plan ASSESSMENT: This is an 83-year-old male. 1. Dyspnea. 2. Respiratory distress. 3. Diabetes type 2. 4. Parkinson disease. 5. Hypercholesterolemia. 6. Dilated cardiomyopathy. 7. Dysphagia. 8. Benign prostatic hypertrophy. 9. Left Ureteral stone/hydronephrosis TREATMENT: 1. Dyspnea/respiratory distress. A Pulmonary consultation has been obtained with Dr. Kathryn Lopez. The patient is currently extubated. ABX=Ceftriaxone. We will follow recommendations of Pulmonary. 2. Diabetes type 2. 3. Hypercholesterolemia. 4. Dilated cardiomyopathy. 5. Dysphagia. The patient is status post PEG placement. 6. Hypertensive heart disease. 7. Benign prostatic hypertrophy. 8. ID=DR. Page 9. Urology = Shukri Donnelly MD Jul 18, 2019 19:16
--- NOTE | 2019-07-18 19:25 | NUR ---
HAND-OFF: Report given to .BRIEN HERMAN.
[2019-07-18 20:00] VITALS: BP 134/62
[2019-07-18] MEDS: Tamsulosin 0.4mg cap ORAL SCH (21:48)
[2019-07-19] VITALS: BP 118/65
[2019-07-19] MEDS: Albuterol/Ipratropium 3ml neb HHN SCH ×6 (02:49→23:32)
[2019-07-19 04:00] VITALS: BP 127/66
[2019-07-19 05:39] LABS: BASOPHILS % (AUTO) 0.5 % (0.0-2.0); HEMOGLOBIN 9.7 G/DL (14.2-18.0); LYMPHOCYTES % (AUTO) 18.1 % (20.0-45.0); MEAN CORPUSCULAR VOLUME 86 FL (80-99); MONOCYTES % (AUTO) 7.7 % (1.0-10.0); NEUTROPHILS % (AUTO) 71.7 % (45.0-75.0); PLATELET COUNT 185 K/UL (150-450); RED BLOOD COUNT 3.49 M/UL (4.70-6.10); RED CELL DISTRIBUTION WIDTH 16.3 % (11.6-14.8); WHITE BLOOD COUNT 11.2 K/UL (4.8-10.8)
[2019-07-19] MEDS: NovoLOG Insulin Flexpen SUBQ SCH ×4 (05:47→17:39)
--- NOTE | 2019-07-19 06:00 | NUR ---
NURSE NOTES: Condition unchanged. Patient in bed awake,alert able to verbalize needs to staff. SR on spectrograph operator. No SOB or distress noted. Saturating at 100% room air. Lt Hand #24. Tolerating GT feeding of Vital AF @ 60cc/hr with no residual noted. HOB elevated. Juan cath draining well clear yellow urine. Bed in lowest position, side rails upx2. P200 mattress for wound management in place. Bed alarm engaged. Call light within reach. Instructed patient to use call light for assistance. Will continue POC
--- NOTE | 2019-07-19 06:10 | NUR ---
HAND-OFF: Report given to VIRGIL Sanchez.
[2019-07-19 06:20] LABS: ALANINE AMINOTRANSFERASE 46 U/L (12-78); ALBUMIN 2.5 G/DL (3.4-5.0); ALBUMIN/GLOBULIN RATIO 0.8 (1.0-2.7); ALKALINE PHOSPHATASE 111 U/L (46-116); ANION GAP 3 mmol/L (5-15); BILIRUBIN,TOTAL 0.3 MG/DL (0.2-1.0); BLOOD UREA NITROGEN 27 mg/dL (7-18); CALCIUM 8.3 MG/DL (8.5-10.1); CARBON DIOXIDE 34 MMOL/L (21-32); CHLORIDE 106 MMOL/L (98-107); CREATININE 0.7 MG/DL (0.55-1.30); PHOSPHORUS 3.2 MG/DL (2.5-4.9); POTASSIUM 4.5 MMOL/L (3.5-5.1); SODIUM 143 MMOL/L (136-145)
[2019-07-19] MEDS ORDERED: Promethazine/Codeine 5ml UD ORAL PRN (06:30)
--- NOTE | 2019-07-19 06:46 | NUR ---
NURSE NOTES: Received pt from VIRGIL Watt. Pt awake and responding appropriately. Pt also extremely congested. Will call RT for deep suctioning. NC, SCDs, Juan, and GT feeding on and running. Bed in lowest position. Call light within reach. Will continue to monitor. Suctioning set up at bedside.
--- NOTE | 2019-07-19 07:35 | NUR ---
HAND-OFF: Report given to VIRGIL Guan. Pt stable.
[2019-07-19 08:00] VITALS: BP 103/50
[2019-07-19 09:15] LABS: ASPARTATE AMINO TRANSFERASE 20 U/L (15-37)
--- NOTE | 2019-07-19 09:30 | Urology Progress Note ---
Assessment/Plan Assessment/Plan: 1. Left-sided hydronephrosis, poss chronic. 2. Proteinuria. 3. Hematuria. 4. Pyuria. 5. Urinary retention. 6. BPH history. 7. Rule out neurogenic bladder. 8. Mild acute kidney injury, improved. 9. Left ureteral calculus. 10. Right renal calculi. 11. Cystitis. 12. Left inguinal hernia. monitor clinically maintain nixon hand irrigate PRN s/p abx monitor renal fxn flomax and proscar added will consider tx of stones once more medically stabilized currently no flank pain and normal Cr voiding trial at some point? d/w Dr. Glover Subjective Allergies: Coded Allergies: PENICILLINS (Verified Allergy, Unknown, 07/04/19) Subjective all noted, feels fair, no pain Objective Last 24 Hour Vital Signs Date Time Temp Pulse Resp B/P (MAP) Pulse Ox O2 Delivery O2 Flow Rate FiO2 07/19/19 07:25 88 22 99 Nasal Cannula 3.0 32 84 22 07/19/19 07:11 84 22 99 Nasal Cannula 3.0 32 07/19/19 07:10 99 Nasal Cannula 3.0 32 07/19/19 04:00 97.9 84 23 127/66 (86) 100 07/19/19 04:00 86 07/19/19 03:50 Nasal Cannula 2.0 Nasal Cannula 2.0 07/19/19 02:49 75 17 100 Nasal Cannula 2.0 28 71 17 99 07/19/19 00:00 Nasal Cannula 2.0 Nasal Cannula 2.0 07/19/19 00:00 79 07/19/19 00:00 98.1 76 20 118/65 (82) 100 07/18/19 22:35 68 18 100 Nasal Cannula 2.0 28 65 18 99 07/18/19 20:00 71 07/18/19 20:00 Nasal Cannula 2.0 Nasal Cannula 2.0 07/18/19 20:00 97.9 71 18 134/62 (86) 95 07/18/19 18:57 66 20 98 Nasal Cannula 2.0 28 07/18/19 18:57 73 18 100 Nasal Cannula 2.0 28 66 20 98 07/18/19 18:57 98 Nasal Cannula 2.0 28 07/18/19 16:00 98.8 71 20 126/72 (90) 98 07/18/19 16:00 Nasal Cannula 2.0 Nasal Cannula 2.0 07/18/19 16:00 69 07/18/19 13:08 134/62 07/18/19 12:00 Nasal Cannula 2.0 Nasal Cannula 2.0 07/18/19 12:00 97.9 68 20 134/62 (86) 93 07/18/19 12:00 66 Intake and Output 07/18/19 07/19/19 18:59 06:59 Intake Total 870 ml 700 ml Output Total 1001 ml Balance -131 ml 700 ml Free Water 150 ml 100 ml Tube Feeding 720 ml 600 ml Output Urine Total 1000 ml Stool Total 1 ml # Bowel Movements 3 3 Microbiology Date/Time Source Procedure Growth Status 07/11/19 12:00 Blood Blood Culture - Final NO GROWTH AFTER 5 DAYS Complete 07/04/19 10:15 Sputum Gram Stain - Final Complete 07/04/19 10:15 Sputum Culture - Final Nicolle Albicans Usual Respiratory Valery Complete 07/11/19 21:20 Urine,Clean Catch Urine Culture - Final NO GROWTH AFTER 48 HOURS Complete 07/04/19 00:43 Rectum - Final NO CARBAPENEM-RESISTANT ENTEROBACTERI... Complete Current Medications Medications (Trade) Dose Ordered Sig/Genoveva Route PRN Reason Start Time Stop Time Status Last Admin Dose Admin Acetaminophen (Tylenol) 650 mg Q6H PRN ORAL Mild Pain/Temp > 100.5 07/19/19 06:30 08/03/19 06:29 Albuterol/ Ipratropium (Albuterol/ Ipratropium) 3 ml Q4HRT HHN 07/19/19 07:00 07/23/19 17:25 07/19/19 07:10 Dextrose (Dextrose 50%) 25 ml Q30M PRN IV Hypoglycemia 07/19/19 06:30 08/11/19 11:59 Dextrose (Dextrose 50%) 50 ml Q30M PRN IV Hypoglycemia 07/19/19 06:30 08/11/19 11:59 Finasteride (Proscar) 5 mg DAILY ORAL 07/19/19 09:00 08/13/19 08:59 Hydralazine HCl (Apresoline) 10 mg Q4H PRN IV bp over 160 syst 07/19/19 06:30 08/05/19 06:29 Insulin Aspart (NovoLOG) Q6HR SUBQ 07/19/19 12:00 08/11/19 16:29 Magnesium Sulfate 100 ml @ 100 mls/hr Q1H IVPB 07/19/19 08:00 07/19/19 09:59 Nitroglycerin (Ntg) 1 patch Q24H TDERMAL 07/19/19 12:30 08/05/19 12:29 Pantoprazole (Protonix) 40 mg Q12HR IV 07/19/19 09:00 08/04/19 11:14 Potassium Chloride (K-Dur) 20 meq TWICE A DAY GT 07/19/19 09:00 08/13/19 13:09 Promethazine HCl/ Codeine (Phenergan with Codeine) 5 ml Q4H PRN ORAL For Cough 07/19/19 06:30 08/03/19 06:29 Tamsulosin HCl (Flomax) 0.4 mg BEDTIME ORAL 07/19/19 21:00 08/12/19 20:59 Laboratory Tests 07/19/19 03:45: White Blood Count 11.2H, Red Blood Count 3.49L, Hemoglobin 9.7L, Hematocrit 30.0L, Mean Corpuscular Volume 86, Mean Corpuscular Hemoglobin 27.8, Mean Corpuscular Hemoglobin Concent 32.3, Red Cell Distribution Width 16.3H, Platelet Count 185, Mean Platelet Volume 8.6, Neutrophils (%) (Auto) 71.7, Lymphocytes (%) (Auto) 18.1L, Monocytes (%) (Auto) 7.7, Eosinophils (%) (Auto) 2.0, Basophils (%) (Auto) 0.5, Sodium Level 143, Potassium Level 4.5, Chloride Level 106, Carbon Dioxide Level 34H, Anion Gap 3L, Blood Urea Nitrogen 27H, Creatinine 0.7, Estimat Glomerular Filtration Rate > 60, Glucose Level 158H, Calcium Level 8.3L, Phosphorus Level 3.2, Magnesium Level 1.7L, Total Bilirubin 0.3, Aspartate Amino Transf (AST/SGOT) 20, Alanine Aminotransferase (ALT/SGPT) 46, Alkaline Phosphatase 111, Total Protein 5.8L, Albumin 2.5L, Globulin 3.3, Albumin/Globulin Ratio 0.8L Height (Feet): 5 Height (Inches): 8.00 Weight (Pounds): 192 Objective exam stable nixon indwelling urine slightly blood-tinged CT A/P (07/12) noted Clayton Callejas MD Jul 19, 2019 09:30
--- NOTE | 2019-07-19 10:38 | Nephrology Progress Note ---
Assessment/Plan Problem List: (1) RIA (acute kidney injury) (2) Cardiac arrest with successful resuscitation (3) Respiratory failure with hypoxia (4) Hydronephrosis Assessment patient have Ria due to Low BP and s/p arrest elevated liver enzymes for same reason others: 1. Acute hypoxemic respiratory failure. 2. Hypotension possible sepsis. 3. Diabetes type 2. 4. Parkinson disease. 5. Hypercholesterolemia. 6. EjFx 65% reported 7. Dysphagia. 8. Benign prostatic hypertrophy. Plan s/p Cr 1.6 now wnl extubated 07/11 Nitro- Phos , K , Mag supplement as needed keep BP above 100 syst Pulm support monitor renal parameters discussed with RN VALENTINA: Moderate left hydronephrosis. Juan catheter. Echogenic right kidney. Suspected medical renal disease. CXR 07/15 IMPRESSION: Infiltrate and/or pleural effusion suspected at the left lung base. Mild pulmonary vascular congestion not excluded. Correlate clinically. Subjective ROS Limited/Unobtainable: No Constitutional: Reports: malaise, weakness Objective Objective Last 24 Hour Vital Signs Date Time Temp Pulse Resp B/P (MAP) Pulse Ox O2 Delivery O2 Flow Rate FiO2 07/19/19 09:49 Nasal Cannula 2.0 Nasal Cannula 2.0 07/19/19 08:00 Nasal Cannula 2.0 Nasal Cannula 2.0 07/19/19 08:00 98.2 94 20 103/50 (67) 99 94 07/19/19 07:52 94 07/19/19 07:25 88 22 99 Nasal Cannula 3.0 32 84 22 07/19/19 07:11 84 22 99 Nasal Cannula 3.0 32 07/19/19 07:10 99 Nasal Cannula 3.0 32 07/19/19 04:00 97.9 84 23 127/66 (86) 100 07/19/19 04:00 86 07/19/19 03:50 Nasal Cannula 2.0 Nasal Cannula 2.0 07/19/19 02:49 75 17 100 Nasal Cannula 2.0 28 71 17 99 07/19/19 00:00 Nasal Cannula 2.0 Nasal Cannula 2.0 07/19/19 00:00 79 07/19/19 00:00 98.1 76 20 118/65 (82) 100 07/18/19 22:35 68 18 100 Nasal Cannula 2.0 28 65 18 99 07/18/19 20:00 71 07/18/19 20:00 Nasal Cannula 2.0 Nasal Cannula 2.0 07/18/19 20:00 97.9 71 18 134/62 (86) 95 07/18/19 18:57 66 20 98 Nasal Cannula 2.0 28 07/18/19 18:57 73 18 100 Nasal Cannula 2.0 28 66 20 98 07/18/19 18:57 98 Nasal Cannula 2.0 28 07/18/19 16:00 98.8 71 20 126/72 (90) 98 07/18/19 16:00 Nasal Cannula 2.0 Nasal Cannula 2.0 07/18/19 16:00 69 07/18/19 13:08 134/62 07/18/19 12:00 Nasal Cannula 2.0 Nasal Cannula 2.0 07/18/19 12:00 97.9 68 20 134/62 (86) 93 07/18/19 12:00 66 Intake and Output 07/18/19 07/19/19 19:00 07:00 Intake Total 920 ml 590 ml Output Total 1001 ml Balance -81 ml 590 ml Free Water 200 ml 50 ml Tube Feeding 720 ml 540 ml Output Urine Total 1000 ml Stool Total 1 ml # Bowel Movements 3 3 Laboratory Tests 07/19/19 03:45: White Blood Count 11.2H, Red Blood Count 3.49L, Hemoglobin 9.7L, Hematocrit 30.0L, Mean Corpuscular Volume 86, Mean Corpuscular Hemoglobin 27.8, Mean Corpuscular Hemoglobin Concent 32.3, Red Cell Distribution Width 16.3H, Platelet Count 185, Mean Platelet Volume 8.6, Neutrophils (%) (Auto) 71.7, Lymphocytes (%) (Auto) 18.1L, Monocytes (%) (Auto) 7.7, Eosinophils (%) (Auto) 2.0, Basophils (%) (Auto) 0.5, Sodium Level 143, Potassium Level 4.5, Chloride Level 106, Carbon Dioxide Level 34H, Anion Gap 3L, Blood Urea Nitrogen 27H, Creatinine 0.7, Estimat Glomerular Filtration Rate > 60, Glucose Level 158H, Calcium Level 8.3L, Phosphorus Level 3.2, Magnesium Level 1.7L, Total Bilirubin 0.3, Aspartate Amino Transf (AST/SGOT) 20, Alanine Aminotransferase (ALT/SGPT) 46, Alkaline Phosphatase 111, Total Protein 5.8L, Albumin 2.5L, Globulin 3.3, Albumin/Globulin Ratio 0.8L Height (Feet): 5 Height (Inches): 8.00 Weight (Pounds): 192 General Appearance: no apparent distress, lethargic Cardiovascular: normal rate Respiratory/Chest: decreased breath sounds Abdomen: distended Objective no change Oskar Mohr MD Jul 19, 2019 10:38
--- NOTE | 2019-07-19 11:00 | NUR ---
RADIOLOGY DEPT., CHEST X-RAY DONE.-P.DYE
--- NOTE | 2019-07-19 11:14 | Cardiac Electrophysiology PN ---
Assessment/Plan Assessment/Plan 1. Status post bradycardic arrest off any sinus node or AV destinee blocking agents. 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 Likely precipitated by respiratory failure The first two troponins on admission were negative. 5 follow up troponins were mildly elevated likely due to arrest No further critical hillary episode on tele. Lowest HR 50s 2. NSTEMI. Due to arrest 3. Respiratory failure. D. Dimer positive. VQ scan pre code was low probability. Extubated 07/11/19 3. Hypotension. Improved with IV fluid 5. Dehydration and hyperatremia, resolved 6. S/P PEG 7. Diabetes. 8. Benign prostatic hypertrophy.SKYLER Callejas. S/P CT abdomen that showed Left hydronephrosis 9. Full code. CARI RN Subjective Subjective PEG feeding ongoing.In SR with first degree AVB. No events in NAD Objective Last 24 Hour Vital Signs Date Time Temp Pulse Resp B/P (MAP) Pulse Ox O2 Delivery O2 Flow Rate FiO2 07/19/19 09:49 Nasal Cannula 2.0 Nasal Cannula 2.0 07/19/19 08:00 Nasal Cannula 2.0 Nasal Cannula 2.0 07/19/19 08:00 98.2 94 20 103/50 (67) 99 94 07/19/19 07:52 94 07/19/19 07:25 88 22 99 Nasal Cannula 3.0 32 84 22 07/19/19 07:11 84 22 99 Nasal Cannula 3.0 32 07/19/19 07:10 99 Nasal Cannula 3.0 32 07/19/19 04:00 97.9 84 23 127/66 (86) 100 07/19/19 04:00 86 07/19/19 03:50 Nasal Cannula 2.0 Nasal Cannula 2.0 07/19/19 02:49 75 17 100 Nasal Cannula 2.0 28 71 17 99 07/19/19 00:00 Nasal Cannula 2.0 Nasal Cannula 2.0 07/19/19 00:00 79 07/19/19 00:00 98.1 76 20 118/65 (82) 100 07/18/19 22:35 68 18 100 Nasal Cannula 2.0 28 65 18 99 07/18/19 20:00 71 07/18/19 20:00 Nasal Cannula 2.0 Nasal Cannula 2.0 07/18/19 20:00 97.9 71 18 134/62 (86) 95 2/13/20 18:57 66 20 98 Nasal Cannula 2.0 28 07/18/19 18:57 73 18 100 Nasal Cannula 2.0 28 66 20 98 07/18/19 18:57 98 Nasal Cannula 2.0 28 07/18/19 16:00 98.8 71 20 126/72 (90) 98 07/18/19 16:00 Nasal Cannula 2.0 Nasal Cannula 2.0 07/18/19 16:00 69 07/18/19 13:08 134/62 07/18/19 12:00 Nasal Cannula 2.0 Nasal Cannula 2.0 07/18/19 12:00 97.9 68 20 134/62 (86) 93 07/18/19 12:00 66 Intake and Output 07/18/19 07/19/19 19:00 07:00 Intake Total 920 ml 590 ml Output Total 1001 ml Balance -81 ml 590 ml Free Water 200 ml 50 ml Tube Feeding 720 ml 540 ml Output Urine Total 1000 ml Stool Total 1 ml # Bowel Movements 3 3 Laboratory Tests Test 07/19/19 03:45 White Blood Count 11.2 K/UL (4.8-10.8) H Red Blood Count 3.49 M/UL (4.70-6.10) L Hemoglobin 9.7 G/DL (14.2-18.0) L Hematocrit 30.0 % (42.0-52.0) L Mean Corpuscular Volume 86 FL (80-99) Mean Corpuscular Hemoglobin 27.8 PG (27.0-31.0) Mean Corpuscular Hemoglobin Concent 32.3 G/DL (32.0-36.0) Red Cell Distribution Width 16.3 % (11.6-14.8) H Platelet Count 185 K/UL (150-450) Mean Platelet Volume 8.6 FL (6.5-10.1) Neutrophils (%) (Auto) 71.7 % (45.0-75.0) Lymphocytes (%) (Auto) 18.1 % (20.0-45.0) L Monocytes (%) (Auto) 7.7 % (1.0-10.0) Eosinophils (%) (Auto) 2.0 % (0.0-3.0) Basophils (%) (Auto) 0.5 % (0.0-2.0) Sodium Level 143 MMOL/L (136-145) Potassium Level 4.5 MMOL/L (3.5-5.1) Chloride Level 106 MMOL/L (98-107) Carbon Dioxide Level 34 MMOL/L (21-32) H Anion Gap 3 mmol/L (5-15) L Blood Urea Nitrogen 27 mg/dL (7-18) H Creatinine 0.7 MG/DL (0.55-1.30) Estimat Glomerular Filtration Rate > 60 mL/min (>60) Glucose Level 158 MG/DL (74-106) H Calcium Level 8.3 MG/DL (8.5-10.1) L Phosphorus Level 3.2 MG/DL (2.5-4.9) Magnesium Level 1.7 MG/DL (1.8-2.4) L Total Bilirubin 0.3 MG/DL (0.2-1.0) Aspartate Amino Transf (AST/SGOT) 20 U/L (15-37) Alanine Aminotransferase (ALT/SGPT) 46 U/L (12-78) Alkaline Phosphatase 111 U/L (46-116) Total Protein 5.8 G/DL (6.4-8.2) L Albumin 2.5 G/DL (3.4-5.0) L Globulin 3.3 g/dL Albumin/Globulin Ratio 0.8 (1.0-2.7) L Objective HEAD AND NECK: Mild JVD. LUNGS: Decreased breath sounds. CARDIOVASCULAR: RRR. No G/R/M ABDOMEN: Status post G-tube. EXTREMITIES: No pitting edema. Enio Santos MD Jul 19, 2019 11:14
--- NOTE | 2019-07-19 11:51 | Pulmonology Progress Note ---
Assessment/Plan Problems: (1) Cardiac arrest with successful resuscitation (2) Respiratory failure with hypoxia (3) Sepsis (4) CARA (acute kidney injury) (5) Anemia (6) Hypertensive heart disease (7) BPH (benign prostatic hyperplasia) (8) DVT (deep venous thrombosis) (9) Parkinson disease (10) Diabetes mellitus (11) Feeding by G-tube Assessment/Plan wbc wnl, afebrile bun/creatinine better no new cultures doing better off abx tolerating diet aspiration precaution titrate fio2 to sat of 92% sliding sclae\ cxr, pt has loud rhonchi, might be aspirating his own saliva Subjective ROS Limited/Unobtainable: No Interval Events: audible rhonchi Allergies: Coded Allergies: PENICILLINS (Verified Allergy, Unknown, 07/04/19) Objective Last 24 Hour Vital Signs Date Time Temp Pulse Resp B/P (MAP) Pulse Ox O2 Delivery O2 Flow Rate FiO2 07/19/19 11:10 86 22 98 Nasal Cannula 2.0 28 82 22 96 07/19/19 09:49 Nasal Cannula 2.0 Nasal Cannula 2.0 07/19/19 08:00 Nasal Cannula 2.0 Nasal Cannula 2.0 07/19/19 08:00 98.2 94 20 103/50 (67) 99 94 07/19/19 07:52 94 07/19/19 07:25 88 22 99 Nasal Cannula 3.0 32 84 22 07/19/19 07:11 84 22 99 Nasal Cannula 3.0 32 07/19/19 07:10 99 Nasal Cannula 3.0 32 07/19/19 04:00 97.9 84 23 127/66 (86) 100 07/19/19 04:00 86 07/19/19 03:50 Nasal Cannula 2.0 Nasal Cannula 2.0 07/19/19 02:49 75 17 100 Nasal Cannula 2.0 28 71 17 99 07/19/19 00:00 Nasal Cannula 2.0 Nasal Cannula 2.0 07/19/19 00:00 79 07/19/19 00:00 98.1 76 20 118/65 (82) 100 07/18/19 22:35 68 18 100 Nasal Cannula 2.0 28 65 18 99 07/18/19 20:00 71 07/18/19 20:00 Nasal Cannula 2.0 Nasal Cannula 2.0 07/18/19 20:00 97.9 71 18 134/62 (86) 95 07/18/19 18:57 66 20 98 Nasal Cannula 2.0 28 07/18/19 18:57 73 18 100 Nasal Cannula 2.0 28 66 20 98 07/18/19 18:57 98 Nasal Cannula 2.0 28 07/18/19 16:00 98.8 71 20 126/72 (90) 98 07/18/19 16:00 Nasal Cannula 2.0 Nasal Cannula 2.0 07/18/19 16:00 69 07/18/19 13:08 134/62 07/18/19 12:00 Nasal Cannula 2.0 Nasal Cannula 2.0 07/18/19 12:00 97.9 68 20 134/62 (86) 93 07/18/19 12:00 66 Intake and Output 07/18/19 07/19/19 19:00 07:00 Intake Total 920 ml 590 ml Output Total 1001 ml Balance -81 ml 590 ml Free Water 200 ml 50 ml Tube Feeding 720 ml 540 ml Output Urine Total 1000 ml Stool Total 1 ml # Bowel Movements 3 3 General Appearance: WD/WN HEENT: normocephalic, atraumatic Respiratory/Chest: chest wall non-tender, lungs clear, normal breath sounds, chest wall tender Cardiovascular: normal rate Abdomen: normal bowel sounds, soft, non tender Neurologic/Psychiatric: deck and hull assembler II-XII grossly normal Lymphatic: no neck adenopathy Laboratory Tests 07/19/19 03:45: White Blood Count 11.2H, Red Blood Count 3.49L, Hemoglobin 9.7L, Hematocrit 30.0L, Mean Corpuscular Volume 86, Mean Corpuscular Hemoglobin 27.8, Mean Corpuscular Hemoglobin Concent 32.3, Red Cell Distribution Width 16.3H, Platelet Count 185, Mean Platelet Volume 8.6, Neutrophils (%) (Auto) 71.7, Lymphocytes (%) (Auto) 18.1L, Monocytes (%) (Auto) 7.7, Eosinophils (%) (Auto) 2.0, Basophils (%) (Auto) 0.5, Sodium Level 143, Potassium Level 4.5, Chloride Level 106, Carbon Dioxide Level 34H, Anion Gap 3L, Blood Urea Nitrogen 27H, Creatinine 0.7, Estimat Glomerular Filtration Rate > 60, Glucose Level 158H, Calcium Level 8.3L, Phosphorus Level 3.2, Magnesium Level 1.7L, Total Bilirubin 0.3, Aspartate Amino Transf (AST/SGOT) 20, Alanine Aminotransferase (ALT/SGPT) 46, Alkaline Phosphatase 111, Total Protein 5.8L, Albumin 2.5L, Globulin 3.3, Albumin/Globulin Ratio 0.8L Current Medications Medications (Trade) Dose Ordered Sig/Genoveva Route PRN Reason Start Time Stop Time Status Last Admin Dose Admin Acetaminophen (Tylenol) 650 mg Q6H PRN ORAL Mild Pain/Temp > 100.5 07/19/19 06:30 08/03/19 06:29 Albuterol/ Ipratropium (Albuterol/ Ipratropium) 3 ml Q4HRT HHN 07/19/19 07:00 07/23/19 17:25 07/19/19 11:13 Dextrose (Dextrose 50%) 25 ml Q30M PRN IV Hypoglycemia 07/19/19 06:30 08/11/19 11:59 Dextrose (Dextrose 50%) 50 ml Q30M PRN IV Hypoglycemia 07/19/19 06:30 08/11/19 11:59 Finasteride (Proscar) 5 mg DAILY ORAL 07/19/19 09:00 08/13/19 08:59 Hydralazine HCl (Apresoline) 10 mg Q4H PRN IV bp over 160 syst 07/19/19 06:30 08/05/19 06:29 Insulin Aspart (NovoLOG) Q6HR SUBQ 07/19/19 12:00 08/11/19 16:29 Nitroglycerin (Ntg) 1 patch Q24H TDERMAL 07/19/19 12:30 08/05/19 12:29 Pantoprazole (Protonix) 40 mg Q12HR IV 07/19/19 09:00 08/04/19 11:14 Potassium Chloride (K-Dur) 20 meq TWICE A DAY GT 07/19/19 09:00 08/13/19 13:09 Promethazine HCl/ Codeine (Phenergan with Codeine) 5 ml Q4H PRN ORAL For Cough 07/19/19 06:30 08/03/19 06:29 Tamsulosin HCl (Flomax) 0.4 mg BEDTIME ORAL 07/19/19 21:00 08/12/19 20:59 Kathryn Lopez MD Jul 19, 2019 11:51
[2019-07-19 12:00] VITALS: BP 116/61
--- NOTE | 2019-07-19 12:04 | NUR ---
RD ASSESSMENT & RECOMMENDATIONS SEE CARE ACTIVITY FOR COMPLETE ASSESSMENT DAILY ESTIMATED NEEDS: Needs based on Pulmonary, wound/ 67.7kg 25-30 kcals/kg 9059-5642 total kcals 1.25-1.5 g protein/kg 85-102 g total protein 25-30 mL/kg 3966-0058 total fluid mLs NUTRITION DIAGNOSIS: * Increased kcal/prot needs R/T wound healing as evidenced by pt w/ resolving wounds @ L buttocks, refer to WC eval. 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 CURRENT TF:Vital AF 1.2 @ 60ml/hr x 24 hrs PO DIET RECOMMENDATIONS: IF PO INDICATED-> CCHO MED, LOW NA/ TEXTURE PER WAITER/WAITRESS FORMAL ENTERAL NUTRITION RECOMMENDATIONS: Glucerna 1.2 @ 60ml/hr x 24 hrs to provide 1440ml, 1728kcal, 86g prot, 1159ml free water * Rec Glucerna 1.2 as pt now extubated, Vital AF no longer indicated. * Initiate Glucerna 1.2 @ 30ml/hr x 6 hrs, advance 10ml q 4-6 hrs as tolerated to goal rate. * HOB over 30 degrees * Water flush of 120ml q 4 hrs ADDITIONAL RECOMMENDATIONS: * Per SNF: HT=67" OK=[id number] (As of Jun 10, 2019) * Monitor K closely, need for TF change (K 5.9 upon adm, now wnl) * Monitor hydration status: Na now normalized, BUN trend down -> monitor need to increase H20 flushes * Wound healing: continued Dipak BID . .
[2019-07-19] MEDS: Pantoprazole Inj IV SCH ×2 (12:18→21:05)
[2019-07-19] MEDS: Nitroglycerin Patch 0.4mg TDERMAL SCH (12:30)
--- NOTE | 2019-07-19 12:46 | Diagnostic Imaging Report ---
Indication: Dyspnea Comparison: 07/15/2019 A single view chest radiograph was obtained. Findings: Minimal prominence of pulmonary vascularity noted. There is mild patchy basilar atelectasis again demonstrated. Pneumonia is not entirely excludable. The heart is enlarged. The aorta is mildly enlarged consistent with atherosclerotic vascular disease. The bones are osteopenic. Impression: Mild pulmonary vascular congestion may be present. Correlate clinically. Basal atelectasis versus infiltrate. No change
--- NOTE | 2019-07-19 13:17 | Infectious Diseases Prog Note ---
Assessment/Plan Assessment/Plan Assessment: Shock, SP s/p cardiac arrest 07/05 Obstruct uropathy, L hydrouretenephrosis -07/12 CT abd/p: -07/12 CT abd/p: Moderate left hydroureteronephrosis secondary to a 1.5 cm left mid to distal ureter stone. Multiple nonobstructive stones within the right kidney. Thickening of the wall the urinary bladder consistent with cystitis. Juan catheter in good position. 10 x 7 cm left inguinal hernia containing bowel. No evidence of obstruction.Trace left pleural effusion. Bilateral posterior basal atelectasis. Sepsis, Sp Probable UTI, sp rx Acute hypoxic respiratory failure, intubated 07/05; extubated 07/11 Aspiration pneumonia vs pneumonitis Gram positive bacteremia- contaminant -07/18 CXR: Mild pulmonary vascular congestion may be present. Correlate clinically.Basal atelectasis versus infiltrate. No change -07/15 CXR:Infiltrate and/or pleural effusion suspected at the left lung base. Mild pulmonary vascular congestion not excluded. Correlate clinically. -07/13 CXR: Improving pulmonary venous congestion with unchanged small left pleural effusion and slight worsening of left basilar infiltrate, indeterminate between atelectasis and pneumonia -07/11 u/a wbc 2-4, nit neg, leuk +3; ucx Neg Bcx Neg -07/06 Bcx Neg -07/05 CXR:Mild CHF -u/a wbc 5-10, nit neg, leuk +2; ucx Neg -Bcx 06/08 dipteriods -sp cx usual resp rupert -CXR: No acute process -influenza sc neg -v. duplex: no DVT -V/q scan:Findings are deemed low probability for pulmonary embolus Fever; low grade, recurrent- SP Mild leukocytosis,recurrent CARA;SP Dm2 dysphagia s/p GT hx of PNA parkinson disease HTN bed bound NH resident Plan: -Continue to monitor off abx -07/17 SP Ceftriaxone #3 -07/15 SP Flagyl # 11, Cefepime #12 -/4 SP IV Vancomycin #5 -07/04 SP Levaquin x1 -f/u cx -Monitor CBC/CMP, temperatures -aspiration precautions -GT care -Cards, nephro f/u -Cdiff if diarrhea -uro f/u Thank you for this consultation. Will continue to follow along with you. Discussed with RN. Subjective Allergies: Coded Allergies: PENICILLINS (Verified Allergy, Unknown, 07/04/19) Subjective afebrile mild leukocytosis Objective Vital Signs Last 24 Hour Vital Signs Date Time Temp Pulse Resp B/P (MAP) Pulse Ox O2 Delivery O2 Flow Rate FiO2 07/19/19 11:10 86 22 98 Nasal Cannula 2.0 28 82 22 96 07/19/19 09:49 Nasal Cannula 2.0 Nasal Cannula 2.0 07/19/19 08:00 Nasal Cannula 2.0 Nasal Cannula 2.0 07/19/19 08:00 98.2 94 20 103/50 (67) 99 94 07/19/19 07:52 94 07/19/19 07:25 88 22 99 Nasal Cannula 3.0 32 84 22 07/19/19 07:11 84 22 99 Nasal Cannula 3.0 32 07/19/19 07:10 99 Nasal Cannula 3.0 32 07/19/19 04:00 97.9 84 23 127/66 (86) 100 07/19/19 04:00 86 07/19/19 03:50 Nasal Cannula 2.0 Nasal Cannula 2.0 07/19/19 02:49 75 17 100 Nasal Cannula 2.0 28 71 17 99 07/19/19 00:00 Nasal Cannula 2.0 Nasal Cannula 2.0 07/19/19 00:00 79 07/19/19 00:00 98.1 76 20 118/65 (82) 100 07/18/19 22:35 68 18 100 Nasal Cannula 2.0 28 65 18 99 07/18/19 20:00 71 07/18/19 20:00 Nasal Cannula 2.0 Nasal Cannula 2.0 07/18/19 20:00 97.9 71 18 134/62 (86) 95 07/18/19 18:57 66 20 98 Nasal Cannula 2.0 28 07/18/19 18:57 73 18 100 Nasal Cannula 2.0 28 66 20 98 07/18/19 18:57 98 Nasal Cannula 2.0 28 07/18/19 16:00 98.8 71 20 126/72 (90) 98 07/18/19 16:00 Nasal Cannula 2.0 Nasal Cannula 2.0 07/18/19 16:00 69 Height (Feet): 5 Height (Inches): 8.00 Weight (Pounds): 192 Objective General Appearance: no distress HEENT: normocephalic, atraumatic Neck: non-tender, supple Respiratory/Chest: lungs clear Cardiovascular/Chest: normal rate Abdomen: normal bowel sounds, non tender Extremities: normal range of motion Laboratory Tests Test 07/19/19 03:45 White Blood Count 11.2 K/UL (4.8-10.8) H Red Blood Count 3.49 M/UL (4.70-6.10) L Hemoglobin 9.7 G/DL (14.2-18.0) L Hematocrit 30.0 % (42.0-52.0) L Mean Corpuscular Volume 86 FL (80-99) Mean Corpuscular Hemoglobin 27.8 PG (27.0-31.0) Mean Corpuscular Hemoglobin Concent 32.3 G/DL (32.0-36.0) Red Cell Distribution Width 16.3 % (11.6-14.8) H Platelet Count 185 K/UL (150-450) Mean Platelet Volume 8.6 FL (6.5-10.1) Neutrophils (%) (Auto) 71.7 % (45.0-75.0) Lymphocytes (%) (Auto) 18.1 % (20.0-45.0) L Monocytes (%) (Auto) 7.7 % (1.0-10.0) Eosinophils (%) (Auto) 2.0 % (0.0-3.0) Basophils (%) (Auto) 0.5 % (0.0-2.0) Sodium Level 143 MMOL/L (136-145) Potassium Level 4.5 MMOL/L (3.5-5.1) Chloride Level 106 MMOL/L (98-107) Carbon Dioxide Level 34 MMOL/L (21-32) H Anion Gap 3 mmol/L (5-15) L Blood Urea Nitrogen 27 mg/dL (7-18) H Creatinine 0.7 MG/DL (0.55-1.30) Estimat Glomerular Filtration Rate > 60 mL/min (>60) Glucose Level 158 MG/DL (74-106) H Calcium Level 8.3 MG/DL (8.5-10.1) L Phosphorus Level 3.2 MG/DL (2.5-4.9) Magnesium Level 1.7 MG/DL (1.8-2.4) L Total Bilirubin 0.3 MG/DL (0.2-1.0) Aspartate Amino Transf (AST/SGOT) 20 U/L (15-37) Alanine Aminotransferase (ALT/SGPT) 46 U/L (12-78) Alkaline Phosphatase 111 U/L (46-116) Total Protein 5.8 G/DL (6.4-8.2) L Albumin 2.5 G/DL (3.4-5.0) L Globulin 3.3 g/dL Albumin/Globulin Ratio 0.8 (1.0-2.7) L Current Medications Medications (Trade) Dose Ordered Sig/Genoveva Route PRN Reason Start Time Stop Time Status Last Admin Dose Admin Acetaminophen (Tylenol) 650 mg Q6H PRN ORAL Mild Pain/Temp > 100.5 07/19/19 06:30 08/03/19 06:29 Albuterol/ Ipratropium (Albuterol/ Ipratropium) 3 ml Q4HRT HHN 07/19/19 07:00 07/23/19 17:25 07/19/19 11:13 Dextrose (Dextrose 50%) 25 ml Q30M PRN IV Hypoglycemia 07/19/19 06:30 08/11/19 11:59 Dextrose (Dextrose 50%) 50 ml Q30M PRN IV Hypoglycemia 07/19/19 06:30 08/11/19 11:59 Finasteride (Proscar) 5 mg DAILY ORAL 07/19/19 09:00 08/13/19 08:59 07/19/19 12:19 Hydralazine HCl (Apresoline) 10 mg Q4H PRN IV bp over 160 syst 07/19/19 06:30 08/05/19 06:29 Insulin Aspart (NovoLOG) Q6HR SUBQ 07/19/19 12:00 08/11/19 16:29 Nitroglycerin (Ntg) 1 patch Q24H TDERMAL 07/19/19 12:30 08/05/19 12:29 Pantoprazole (Protonix) 40 mg Q12HR IV 07/19/19 09:00 08/04/19 11:14 07/19/19 12:18 Potassium Chloride (K-Dur) 20 meq TWICE A DAY GT 07/19/19 09:00 08/13/19 13:09 07/19/19 12:18 Promethazine HCl/ Codeine (Phenergan with Codeine) 5 ml Q4H PRN ORAL For Cough 07/19/19 06:30 08/03/19 06:29 Tamsulosin HCl (Flomax) 0.4 mg BEDTIME ORAL 07/19/19 21:00 08/12/19 20:59 Mirian Page M.D. Jul 19, 2019 13:17
[2019-07-19] MEDS ORDERED: Tubing IV Secondary IV ONE (13:36)
[2019-07-19] MEDS ORDERED: NS 275ml ONE (13:36)
--- NOTE | 2019-07-19 15:08 | NUR ---
P.T Note: P.T evaluation completed and tx initiated. Please refer to P.T evaluation for current functional status. Pt is alert, oriented to self/person but not to time and place. Pt able to follow simple one step commands. Pt presented generalized weakness and generalized joint stiffness limiting functional mobility independence. Pt is dependent/MAX A to turn/roll on L<>R and supine to/from sitting transition. Pt able to sit at the EOB with MIN support. Pt able to partially stand with MAX A x 2 x 5 seconds. Overall poor activity tolerance. Pt will benefit from skilled P.T services for strengthening and functional mobility training. Recommend return to prior living arrangement at [place].
[2019-07-19 16:00] VITALS: BP 120/70
--- NOTE | 2019-07-19 16:59 | NUR ---
CASE MANAGEMENT:REVIEW 07/19/19 SI: SEPSIS. RESP FAILURE. S/P CARDIAC ARREST 97.9 87 20 116/61 93% ON 2L/NC WBC+11.2 H/H-9.7/30.0 BUN+27 IS: FLOMAX PO QHS NTG PATCH Q24 PROSCAR PO QD IV PROTONIX Q12 DUONEB HHN Q4HRS RTC : NOW ON TELEMETRY DCP: FROM [facility]
--- NOTE | 2019-07-19 17:24 | Internal Med Progress Note ---
Subjective Physician Name Rayshawn Woods Attending Physician Rayshawn Woods MD Current Medications Medications (Trade) Dose Ordered Sig/Genoveva Route PRN Reason Start Time Stop Time Status Last Admin Dose Admin Acetaminophen (Tylenol) 650 mg Q6H PRN ORAL Mild Pain/Temp > 100.5 07/19/19 06:30 08/03/19 06:29 Albuterol/ Ipratropium (Albuterol/ Ipratropium) 3 ml Q4HRT HHN 07/19/19 07:00 07/23/19 17:25 07/19/19 15:17 Dextrose (Dextrose 50%) 25 ml Q30M PRN IV Hypoglycemia 07/19/19 06:30 08/11/19 11:59 Dextrose (Dextrose 50%) 50 ml Q30M PRN IV Hypoglycemia 07/19/19 06:30 08/11/19 11:59 Finasteride (Proscar) 5 mg DAILY ORAL 07/19/19 09:00 08/13/19 08:59 07/19/19 12:19 Hydralazine HCl (Apresoline) 10 mg Q4H PRN IV bp over 160 syst 07/19/19 06:30 08/05/19 06:29 Insulin Aspart (NovoLOG) Q6HR SUBQ 07/19/19 12:00 08/11/19 16:29 07/19/19 13:26 Nitroglycerin (Ntg) 1 patch Q24H TDERMAL 07/19/19 12:30 08/05/19 12:29 Pantoprazole (Protonix) 40 mg Q12HR IV 07/19/19 09:00 08/04/19 11:14 07/19/19 12:18 Potassium Chloride (K-Dur) 20 meq TWICE A DAY GT 07/19/19 09:00 08/13/19 13:09 07/19/19 12:18 Promethazine HCl/ Codeine (Phenergan with Codeine) 5 ml Q4H PRN ORAL For Cough 07/19/19 06:30 08/03/19 06:29 Tamsulosin HCl (Flomax) 0.4 mg BEDTIME ORAL 07/19/19 21:00 08/12/19 20:59 Allergies: Coded Allergies: PENICILLINS (Verified Allergy, Unknown, 07/04/19) Subjective Awake, alert, responsive, denies any chest pain or shortness of breath. Objective Last Vital Signs Date Time Temp Pulse Resp B/P (MAP) Pulse Ox O2 Delivery O2 Flow Rate FiO2 07/19/19 16:00 Nasal Cannula 2.0 Nasal Cannula 2.0 07/19/19 15:17 84 17 99 28 80 19 97 07/19/19 12:30 103/50 07/19/19 12:00 97.9 Laboratory Tests Test 07/19/19 03:45 White Blood Count 11.2 K/UL (4.8-10.8) H Red Blood Count 3.49 M/UL (4.70-6.10) L Hemoglobin 9.7 G/DL (14.2-18.0) L Hematocrit 30.0 % (42.0-52.0) L Mean Corpuscular Volume 86 FL (80-99) Mean Corpuscular Hemoglobin 27.8 PG (27.0-31.0) Mean Corpuscular Hemoglobin Concent 32.3 G/DL (32.0-36.0) Red Cell Distribution Width 16.3 % (11.6-14.8) H Platelet Count 185 K/UL (150-450) Mean Platelet Volume 8.6 FL (6.5-10.1) Neutrophils (%) (Auto) 71.7 % (45.0-75.0) Lymphocytes (%) (Auto) 18.1 % (20.0-45.0) L Monocytes (%) (Auto) 7.7 % (1.0-10.0) Eosinophils (%) (Auto) 2.0 % (0.0-3.0) Basophils (%) (Auto) 0.5 % (0.0-2.0) Sodium Level 143 MMOL/L (136-145) Potassium Level 4.5 MMOL/L (3.5-5.1) Chloride Level 106 MMOL/L (98-107) Carbon Dioxide Level 34 MMOL/L (21-32) H Anion Gap 3 mmol/L (5-15) L Blood Urea Nitrogen 27 mg/dL (7-18) H Creatinine 0.7 MG/DL (0.55-1.30) Estimat Glomerular Filtration Rate > 60 mL/min (>60) Glucose Level 158 MG/DL (74-106) H Calcium Level 8.3 MG/DL (8.5-10.1) L Phosphorus Level 3.2 MG/DL (2.5-4.9) Magnesium Level 1.7 MG/DL (1.8-2.4) L Total Bilirubin 0.3 MG/DL (0.2-1.0) Aspartate Amino Transf (AST/SGOT) 20 U/L (15-37) Alanine Aminotransferase (ALT/SGPT) 46 U/L (12-78) Alkaline Phosphatase 111 U/L (46-116) Total Protein 5.8 G/DL (6.4-8.2) L Albumin 2.5 G/DL (3.4-5.0) L Globulin 3.3 g/dL Albumin/Globulin Ratio 0.8 (1.0-2.7) L Intake and Output 07/18/19 07/19/19 19:00 07:00 Intake Total 920 ml 590 ml Output Total 1001 ml Balance -81 ml 590 ml Free Water 200 ml 50 ml Tube Feeding 720 ml 540 ml Output Urine Total 1000 ml Stool Total 1 ml # Bowel Movements 3 3 Objective General: Awake, alert, responsive, no acute distress. HEENT: pupils equal reactive to the light, EOMI, Neck: Supple, no significant jugular venous distention, Lungs: Fair respiratory afford, decreased air on the right side, no Wheeze. + Rales. Heart: Regular rate and rhythm, normal S1/S2, no murmur. Abdomen: soft, nontender, mild distended. Normoactive bowel sounds. PEG site is intact. : Juan catheter. Extremities: No Cyanosis , clubbing or edema. Neuro: SUPERVISOR KNITTING 2 through 12 grossly intact, motor is 5/5 in the both upper extremities, 2/5 bilateral lower extremities. Skin: warm, no rash. Assessment/Plan Assessment/Plan 1. Acute hypoxemic respiratory failure. 2. Hypotension possible due to sepsis due to UTI. 3. Diabetes type 2. 4. Parkinson disease. 5. Hypercholesterolemia. 6. Dilated cardiomyopathy. 7. Dysphagia. 8. Benign prostatic hypertrophy. 9. Moderate left hydroureteronephrosis secondary to a 1.5 cm left mid to distal ureter stone, Plan: Follow-up with the laboratory as well as culture. Chest x-ray. Continue on antibiotics: Off Consider transfer out of the ICU. DVT prophylaxis Heparin subcu. CODE STATUS: Full code. Follow-up with cardiology Consultation with Dr. Santos. Follow-up Pulmonary consultation with . Discuss with over the phone. Rayshawn Woods MD Jul 19, 2019 17:24
--- NOTE | 2019-07-19 19:50 | NUR ---
NURSE NOTES: Received pt from VIRGIL Guan. Pt awake, alert, and having difficulty clearing secretions. Pt sounds congested. Bed in lowest position. GT feeding running. Juan intact and patent. Bed in lowest position. Call light within reach. Will continue to monitor.
[2019-07-19 20:00] VITALS: BP 122/63
[2019-07-19] MEDS: Tamsulosin 0.4mg cap ORAL SCH (21:06)
[2019-07-20] VITALS: BP 122/61
[2019-07-20 04:00] VITALS: BP 112/52
[2019-07-20] MEDS: NovoLOG Insulin Flexpen SUBQ SCH ×4 (06:00→18:00)
[2019-07-20] MEDS: Albuterol/Ipratropium 3ml neb HHN SCH ×6 (07:19→22:11)
--- NOTE | 2019-07-20 07:31 | Pulmonology Progress Note ---
Assessment/Plan Assessment/Plan ASSESSMENT shock s/p bradycardic arrest with successful resuscitation Acute hypoxemic respiratory failure requiring intubation, s/p extubation 07/11 Elevated troponin/NSTEMI likely due to cardiac arrest Sepsis Probable UTI Aspiration pneumonia versus pneumonitis Left hydronephrosis with obstructive uropathy Acute kidney injury-resolved Dehydration Hyponatremia Dysphagia feeding by G-tube Diabetes mellitus Parkinson disease Anemia PLAN OF CARE tele s/p extubation 07/11 O2 titrate to keep sat above 90%, HHN CXR 07/13 - > Improving pulmonary venous congestion with unchanged small left pleural effusion and slight worsening of left basilar infiltrate, indeterminate between atelectasis and pneumonia Venous Duplex negative VQ scan with low prob of PE abx as per ID monitor h/d status - improved; off any AV blocking agents cardio follows ECHO with pEF 60% and RVSP of 32 off stress dose of steroids IVF, monitor renal parameters, correct lytes prn calcium WNL if corrected for low albumin / as per nephro explanation renal US+mod L hydro CT A/P Moderate left hydroureteronephrosis secondary to a 1.5 cm left mid to distal ureter stone. Multiple nonobstructive stones within the right kidney. Thickening of the wall the urinary bladder consistent with cystitis. Juan catheter in good position. 10 x 7 cm left inguinal hernia containing bowel. No evidence of obstruction. Correlate clinically. Arterial vascular disease Anasarca. Trace left pleural effusion. Bilateral posterior basal atelectasis. Cardiomegaly. Degenerative changes of the spine as described above. urologist and nephro follows GTF, asp precautions BS management with SSI case discussed and evaluated by supervising physician Subjective Allergies: Coded Allergies: PENICILLINS (Verified Allergy, Unknown, 07/04/19) Subjective extubated 07/11, transferred to [facility], now on tele mild leukocytosis resolved pulse ox stable on o2 via NC Objective Last 24 Hour Vital Signs Date Time Temp Pulse Resp B/P (MAP) Pulse Ox O2 Delivery O2 Flow Rate FiO2 07/20/19 07:20 Nasal Cannula 3.0 32 07/20/19 07:20 78 18 97 Nasal Cannula 3.0 32 07/20/19 07:19 80 18 100 Nasal Cannula 2.0 28 76 18 96 07/20/19 04:00 97.2 68 20 112/52 (72) 99 07/20/19 04:00 73 07/20/19 04:00 Nasal Cannula 2.0 Nasal Cannula 2.0 07/20/19 00:00 79 07/20/19 00:00 97.9 79 20 122/61 (81) 90 07/19/19 23:27 87 19 100 Nasal Cannula 2.0 28 75 17 98 07/19/19 20:00 76 07/19/19 20:00 97.7 60 20 122/63 (82) 97 80 07/19/19 20:00 Nasal Cannula 2.0 Nasal Cannula 2.0 07/19/19 19:43 82 19 100 Nasal Cannula 2.0 28 77 20 98 07/19/19 19:43 77 20 98 Nasal Cannula 3.0 32 07/19/19 19:43 Nasal Cannula 3.0 32 07/19/19 16:00 98.1 60 20 120/70 (87) 98 60 07/19/19 16:00 Nasal Cannula 2.0 Nasal Cannula 2.0 07/19/19 16:00 60 07/19/19 15:17 84 17 99 Nasal Cannula 2.0 28 80 19 97 07/19/19 12:30 103/50 07/19/19 12:00 Nasal Cannula 2.0 Nasal Cannula 2.0 07/19/19 12:00 97.9 87 20 116/61 (79) 93 87 07/19/19 12:00 68 07/19/19 11:10 86 22 98 Nasal Cannula 2.0 28 82 22 96 07/19/19 09:49 Nasal Cannula 2.0 Nasal Cannula 2.0 07/19/19 08:00 Nasal Cannula 2.0 Nasal Cannula 2.0 07/19/19 08:00 98.2 94 20 103/50 (67) 99 94 07/19/19 07:52 94 Intake and Output 07/19/19 07/20/19 19:00 07:00 Output Total 1400 ml Balance -1400 ml Output Urine Total 1400 ml Stool Total 0 ml # Bowel Movements 2 Objective General Appearance: no acute distress HEENT: normocephalic, atraumatic, anicteric Respiratory/Chest: lungs clear, no accessory muscle use Cardiovascular: normal rate Abdomen: normal bowel sounds, non distended, G tube Extremities: no edema, pedal pulses normal Neurologic/Psychiatric: abnormal gait Musculoskeletal: atrophy Current Medications Medications (Trade) Dose Ordered Sig/Genoveva Route PRN Reason Start Time Stop Time Status Last Admin Dose Admin Acetaminophen (Tylenol) 650 mg Q6H PRN ORAL Mild Pain/Temp > 100.5 07/19/19 06:30 08/03/19 06:29 Albuterol/ Ipratropium (Albuterol/ Ipratropium) 3 ml Q4HRT HHN 07/19/19 07:00 07/23/19 17:25 07/20/19 07:19 Dextrose (Dextrose 50%) 25 ml Q30M PRN IV Hypoglycemia 07/19/19 06:30 08/11/19 11:59 Dextrose (Dextrose 50%) 50 ml Q30M PRN IV Hypoglycemia 07/19/19 06:30 08/11/19 11:59 Finasteride (Proscar) 5 mg DAILY ORAL 07/19/19 09:00 08/13/19 08:59 07/19/19 12:19 Hydralazine HCl (Apresoline) 10 mg Q4H PRN IV bp over 160 syst 07/19/19 06:30 08/05/19 06:29 Insulin Aspart (NovoLOG) Q6HR SUBQ 07/19/19 12:00 08/11/19 16:29 07/19/19 17:39 Nitroglycerin (Ntg) 1 patch Q24H TDERMAL 07/19/19 12:30 08/05/19 12:29 Pantoprazole (Protonix) 40 mg Q12HR IV 07/19/19 09:00 08/04/19 11:14 07/19/19 21:05 Potassium Chloride (K-Dur) 20 meq TWICE A DAY GT 07/19/19 09:00 08/13/19 13:09 07/19/19 17:44 Promethazine HCl/ Codeine (Phenergan with Codeine) 5 ml Q4H PRN ORAL For Cough 07/19/19 06:30 08/03/19 06:29 Tamsulosin HCl (Flomax) 0.4 mg BEDTIME ORAL 07/19/19 21:00 08/12/19 20:59 07/19/19 21:06 Valerie Balderrama NP Jul 20, 2019 07:31
--- NOTE | 2019-07-20 07:41 | NUR ---
HAND-OFF: Report given to VIRGIL Manning. Pt stable.
[2019-07-20 07:56] LABS: BASOPHILS % (AUTO) 1.1 % (0.0-2.0); EOSINOPHILS % (AUTO) 2.5 % (0.0-3.0); HEMATOCRIT 28.8 % (42.0-52.0); HEMOGLOBIN 9.5 G/DL (14.2-18.0); LYMPHOCYTES % (AUTO) 13.5 % (20.0-45.0); MEAN CORPUSCULAR VOLUME 85 FL (80-99); MONOCYTES % (AUTO) 7.8 % (1.0-10.0); NEUTROPHILS % (AUTO) 75.2 % (45.0-75.0); PLATELET COUNT 170 K/UL (150-450); RED BLOOD COUNT 3.36 M/UL (4.70-6.10); RED CELL DISTRIBUTION WIDTH 16.4 % (11.6-14.8); WHITE BLOOD COUNT 8.4 K/UL (4.8-10.8)
[2019-07-20 08:00] VITALS: BP 115/63
--- NOTE | 2019-07-20 08:00 | NUR ---
NURSE NOTES: Patient stable AOx1 no s/sx of distress. Patient very restless pulling IV, pillows and blankets off. RR even and unlabored on 2L NC. Vital AF 1.2 infusing through Gtube. Side rails upx2, call light within reach, bed low and locked.
[2019-07-20 08:20] LABS: ALANINE AMINOTRANSFERASE 40 U/L (12-78); ALBUMIN 2.6 G/DL (3.4-5.0); ALBUMIN/GLOBULIN RATIO 0.7 (1.0-2.7); ALKALINE PHOSPHATASE 116 U/L (46-116); ANION GAP 4 mmol/L (5-15); ASPARTATE AMINO TRANSFERASE 16 U/L (15-37); BILIRUBIN,TOTAL 0.3 MG/DL (0.2-1.0); BLOOD UREA NITROGEN 27 mg/dL (7-18); CALCIUM 8.6 MG/DL (8.5-10.1); CARBON DIOXIDE 34 MMOL/L (21-32); CHLORIDE 105 MMOL/L (98-107); CREATININE 0.8 MG/DL (0.55-1.30); POTASSIUM 4.8 MMOL/L (3.5-5.1); SODIUM 143 MMOL/L (136-145)
[2019-07-20] MEDS: Pantoprazole Inj IV SCH ×2 (08:57→21:51)
--- NOTE | 2019-07-20 09:21 | Urology Progress Note ---
Assessment/Plan Assessment/Plan: 1. Left-sided hydronephrosis, poss chronic. 2. Proteinuria. 3. Hematuria. 4. Pyuria. 5. Urinary retention. 6. BPH history. 7. Rule out neurogenic bladder. 8. Mild acute kidney injury, improved. 9. Left ureteral calculus. 10. Right renal calculi. 11. Cystitis. 12. Left inguinal hernia. monitor clinically maintain nixon hand irrigated and do PRN cath secured to pt's leg s/p abx monitor renal fxn flomax and proscar added will consider tx of stones once more medically stabilized currently no flank pain and normal Cr voiding trial at some point? d/w Dr. Glover Subjective Allergies: Coded Allergies: PENICILLINS (Verified Allergy, Unknown, 07/04/19) Subjective all noted, feels fair, no pain Objective Last 24 Hour Vital Signs Date Time Temp Pulse Resp B/P (MAP) Pulse Ox O2 Delivery O2 Flow Rate FiO2 07/20/19 07:20 Nasal Cannula 3.0 32 07/20/19 07:20 78 18 97 Nasal Cannula 3.0 32 07/20/19 07:19 80 18 100 Nasal Cannula 2.0 28 76 18 96 07/20/19 04:00 97.2 68 20 112/52 (72) 99 07/20/19 04:00 73 07/20/19 04:00 Nasal Cannula 2.0 Nasal Cannula 2.0 07/20/19 00:00 79 07/20/19 00:00 97.9 79 20 122/61 (81) 90 07/19/19 23:27 87 19 100 Nasal Cannula 2.0 28 75 17 98 07/19/19 20:00 76 07/19/19 20:00 97.7 60 20 122/63 (82) 97 80 07/19/19 20:00 Nasal Cannula 2.0 Nasal Cannula 2.0 07/19/19 19:43 82 19 100 Nasal Cannula 2.0 28 77 20 98 07/19/19 19:43 77 20 98 Nasal Cannula 3.0 32 07/19/19 19:43 Nasal Cannula 3.0 32 07/19/19 16:00 98.1 60 20 120/70 (87) 98 60 07/19/19 16:00 Nasal Cannula 2.0 Nasal Cannula 2.0 07/19/19 16:00 60 07/19/19 15:17 84 17 99 Nasal Cannula 2.0 28 80 19 97 07/19/19 12:30 103/50 07/19/19 12:00 Nasal Cannula 2.0 Nasal Cannula 2.0 07/19/19 12:00 97.9 87 20 116/61 (79) 93 87 07/19/19 12:00 68 07/19/19 11:10 86 22 98 Nasal Cannula 2.0 28 82 22 96 07/19/19 09:49 Nasal Cannula 2.0 Nasal Cannula 2.0 Intake and Output 07/19/19 07/20/19 19:00 07:00 Output Total 1400 ml Balance -1400 ml Output Urine Total 1400 ml Stool Total 0 ml # Bowel Movements 2 Microbiology Date/Time Source Procedure Growth Status 07/11/19 12:00 Blood Blood Culture - Final NO GROWTH AFTER 5 DAYS Complete 07/04/19 10:15 Sputum Gram Stain - Final Complete 07/04/19 10:15 Sputum Culture - Final Nicolle Albicans Usual Respiratory Valery Complete 07/11/19 21:20 Urine,Clean Catch Urine Culture - Final NO GROWTH AFTER 48 HOURS Complete 07/04/19 00:43 Rectum - Final NO CARBAPENEM-RESISTANT ENTEROBACTERI... Complete Current Medications Medications (Trade) Dose Ordered Sig/Genoveva Route PRN Reason Start Time Stop Time Status Last Admin Dose Admin Acetaminophen (Tylenol) 650 mg Q6H PRN ORAL Mild Pain/Temp > 100.5 07/19/19 06:30 08/03/19 06:29 Albuterol/ Ipratropium (Albuterol/ Ipratropium) 3 ml Q4HRT HHN 07/19/19 07:00 07/23/19 17:25 07/20/19 07:19 Dextrose (Dextrose 50%) 25 ml Q30M PRN IV Hypoglycemia 07/19/19 06:30 08/11/19 11:59 Dextrose (Dextrose 50%) 50 ml Q30M PRN IV Hypoglycemia 07/19/19 06:30 08/11/19 11:59 Finasteride (Proscar) 5 mg DAILY ORAL 07/19/19 09:00 08/13/19 08:59 07/20/19 08:57 Hydralazine HCl (Apresoline) 10 mg Q4H PRN IV bp over 160 syst 07/19/19 06:30 08/05/19 06:29 Insulin Aspart (NovoLOG) Q6HR SUBQ 07/19/19 12:00 08/11/19 16:29 07/19/19 17:39 Nitroglycerin (Ntg) 1 patch Q24H TDERMAL 07/19/19 12:30 08/05/19 12:29 Pantoprazole (Protonix) 40 mg Q12HR IV 07/19/19 09:00 08/04/19 11:14 07/20/19 08:57 Potassium Chloride (K-Dur) 20 meq TWICE A DAY GT 07/19/19 09:00 08/13/19 13:09 07/20/19 08:57 Promethazine HCl/ Codeine (Phenergan with Codeine) 5 ml Q4H PRN ORAL For Cough 07/19/19 06:30 08/03/19 06:29 Tamsulosin HCl (Flomax) 0.4 mg BEDTIME ORAL 07/19/19 21:00 08/12/19 20:59 07/19/19 21:06 Laboratory Tests 07/20/19 06:50: White Blood Count 8.4, Red Blood Count 3.36L, Hemoglobin 9.5L, Hematocrit 28.8L , Mean Corpuscular Volume 85, Mean Corpuscular Hemoglobin 28.3, Mean Corpuscular Hemoglobin Concent 33.1, Red Cell Distribution Width 16.4H, Platelet Count 170, Mean Platelet Volume 7.8, Neutrophils (%) (Auto) 75.2H, Lymphocytes (%) (Auto) 13.5L, Monocytes (%) (Auto) 7.8, Eosinophils (%) (Auto) 2.5, Basophils (%) (Auto) 1.1, Sodium Level 143, Potassium Level 4.8, Chloride Level 105, Carbon Dioxide Level 34H, Anion Gap 4L, Blood Urea Nitrogen 27H, Creatinine 0.8, Estimat Glomerular Filtration Rate > 60, Glucose Level 114H, Calcium Level 8.6, Total Bilirubin 0.3, Aspartate Amino Transf (AST/SGOT) 16, Alanine Aminotransferase (ALT/SGPT) 40, Alkaline Phosphatase 116, Pro-B-Type Natriuretic Peptide 418H, Total Protein 6.1L, Albumin 2.6L, Globulin 3.5, Albumin/Globulin Ratio 0.7L Height (Feet): 5 Height (Inches): 8.00 Weight (Pounds): 192 Objective exam stable nixon indwelling urine slightly blood-tinged CT A/P (07/12) noted Clayton Callejas MD Jul 20, 2019 09:21
--- NOTE | 2019-07-20 09:28 | Infectious Diseases Prog Note ---
Assessment/Plan Assessment/Plan Assessment: Shock, SP s/p cardiac arrest 07/05 Obstruct uropathy, L hydrouretenephrosis -07/12 CT abd/p: -07/12 CT abd/p: Moderate left hydroureteronephrosis secondary to a 1.5 cm left mid to distal ureter stone. Multiple nonobstructive stones within the right kidney. Thickening of the wall the urinary bladder consistent with cystitis. Juan catheter in good position. 10 x 7 cm left inguinal hernia containing bowel. No evidence of obstruction.Trace left pleural effusion. Bilateral posterior basal atelectasis. Sepsis, Sp Probable UTI, sp rx Acute hypoxic respiratory failure, intubated 07/05; extubated 07/11 Aspiration pneumonia vs pneumonitis Gram positive bacteremia- contaminant -07/18 CXR: Mild pulmonary vascular congestion may be present. Correlate clinically.Basal atelectasis versus infiltrate. No change -07/15 CXR:Infiltrate and/or pleural effusion suspected at the left lung base. Mild pulmonary vascular congestion not excluded. Correlate clinically. -07/13 CXR: Improving pulmonary venous congestion with unchanged small left pleural effusion and slight worsening of left basilar infiltrate, indeterminate between atelectasis and pneumonia -07/11 u/a wbc 2-4, nit neg, leuk +3; ucx Neg Bcx Neg -07/06 Bcx Neg -07/05 CXR:Mild CHF -u/a wbc 5-10, nit neg, leuk +2; ucx Neg -Bcx 06/08 dipteriods -sp cx usual resp rupert -CXR: No acute process -influenza sc neg -v. duplex: no DVT -V/q scan:Findings are deemed low probability for pulmonary embolus Fever; low grade, recurrent- SP Mild leukocytosis,recurrent CARA;SP Dm2 dysphagia s/p GT hx of PNA parkinson disease HTN bed bound [facility] resident Plan: -Continue to monitor off abx -07/17 SP Ceftriaxone #3 -07/15 SP Flagyl # 11, Cefepime #12 -/4 SP IV Vancomycin #5 -07/04 SP Levaquin x1 -f/u cx -Monitor CBC/CMP, temperatures -aspiration precautions -GT care -Cards, nephro f/u -Cdiff if diarrhea -uro f/u Thank you for this consultation. Will continue to follow along with you. Subjective Allergies: Coded Allergies: PENICILLINS (Verified Allergy, Unknown, 07/04/19) Subjective Afebrile No leukocytosis no complaints Objective Vital Signs Last 24 Hour Vital Signs Date Time Temp Pulse Resp B/P (MAP) Pulse Ox O2 Delivery O2 Flow Rate FiO2 07/20/19 07:20 Nasal Cannula 3.0 32 07/20/19 07:20 78 18 97 Nasal Cannula 3.0 32 07/20/19 07:19 80 18 100 Nasal Cannula 2.0 28 76 18 96 07/20/19 04:00 97.2 68 20 112/52 (72) 99 07/20/19 04:00 73 07/20/19 04:00 Nasal Cannula 2.0 Nasal Cannula 2.0 07/20/19 00:00 79 07/20/19 00:00 97.9 79 20 122/61 (81) 90 07/19/19 23:27 87 19 100 Nasal Cannula 2.0 28 75 17 98 07/19/19 20:00 76 07/19/19 20:00 97.7 60 20 122/63 (82) 97 80 07/19/19 20:00 Nasal Cannula 2.0 Nasal Cannula 2.0 07/19/19 19:43 82 19 100 Nasal Cannula 2.0 28 77 20 98 07/19/19 19:43 77 20 98 Nasal Cannula 3.0 32 07/19/19 19:43 Nasal Cannula 3.0 32 07/19/19 16:00 98.1 60 20 120/70 (87) 98 60 07/19/19 16:00 Nasal Cannula 2.0 Nasal Cannula 2.0 07/19/19 16:00 60 07/19/19 15:17 84 17 99 Nasal Cannula 2.0 28 80 19 97 07/19/19 12:30 103/50 07/19/19 12:00 Nasal Cannula 2.0 Nasal Cannula 2.0 07/19/19 12:00 97.9 87 20 116/61 (79) 93 87 07/19/19 12:00 68 07/19/19 11:10 86 22 98 Nasal Cannula 2.0 28 82 22 96 07/19/19 09:49 Nasal Cannula 2.0 Nasal Cannula 2.0 Height (Feet): 5 Height (Inches): 8.00 Weight (Pounds): 192 Objective General Appearance: no distress HEENT: normocephalic, atraumatic Neck: non-tender, supple Respiratory/Chest: lungs clear Cardiovascular/Chest: normal rate Abdomen: normal bowel sounds, non tender Extremities: normal range of motion Laboratory Tests Test 07/20/19 06:50 White Blood Count 8.4 K/UL (4.8-10.8) Red Blood Count 3.36 M/UL (4.70-6.10) L Hemoglobin 9.5 G/DL (14.2-18.0) L Hematocrit 28.8 % (42.0-52.0) L Mean Corpuscular Volume 85 FL (80-99) Mean Corpuscular Hemoglobin 28.3 PG (27.0-31.0) Mean Corpuscular Hemoglobin Concent 33.1 G/DL (32.0-36.0) Red Cell Distribution Width 16.4 % (11.6-14.8) H Platelet Count 170 K/UL (150-450) Mean Platelet Volume 7.8 FL (6.5-10.1) Neutrophils (%) (Auto) 75.2 % (45.0-75.0) H Lymphocytes (%) (Auto) 13.5 % (20.0-45.0) L Monocytes (%) (Auto) 7.8 % (1.0-10.0) Eosinophils (%) (Auto) 2.5 % (0.0-3.0) Basophils (%) (Auto) 1.1 % (0.0-2.0) Sodium Level 143 MMOL/L (136-145) Potassium Level 4.8 MMOL/L (3.5-5.1) Chloride Level 105 MMOL/L (98-107) Carbon Dioxide Level 34 MMOL/L (21-32) H Anion Gap 4 mmol/L (5-15) L Blood Urea Nitrogen 27 mg/dL (7-18) H Creatinine 0.8 MG/DL (0.55-1.30) Estimat Glomerular Filtration Rate > 60 mL/min (>60) Glucose Level 114 MG/DL (74-106) H Calcium Level 8.6 MG/DL (8.5-10.1) Total Bilirubin 0.3 MG/DL (0.2-1.0) Aspartate Amino Transf (AST/SGOT) 16 U/L (15-37) Alanine Aminotransferase (ALT/SGPT) 40 U/L (12-78) Alkaline Phosphatase 116 U/L (46-116) Pro-B-Type Natriuretic Peptide 418 pg/mL (0-125) H Total Protein 6.1 G/DL (6.4-8.2) L Albumin 2.6 G/DL (3.4-5.0) L Globulin 3.5 g/dL Albumin/Globulin Ratio 0.7 (1.0-2.7) L Current Medications Medications (Trade) Dose Ordered Sig/Genoveva Route PRN Reason Start Time Stop Time Status Last Admin Dose Admin Acetaminophen (Tylenol) 650 mg Q6H PRN ORAL Mild Pain/Temp > 100.5 07/19/19 06:30 08/03/19 06:29 Albuterol/ Ipratropium (Albuterol/ Ipratropium) 3 ml Q4HRT HHN 07/19/19 07:00 07/23/19 17:25 07/20/19 07:19 Dextrose (Dextrose 50%) 25 ml Q30M PRN IV Hypoglycemia 07/19/19 06:30 08/11/19 11:59 Dextrose (Dextrose 50%) 50 ml Q30M PRN IV Hypoglycemia 07/19/19 06:30 08/11/19 11:59 Finasteride (Proscar) 5 mg DAILY ORAL 07/19/19 09:00 08/13/19 08:59 07/20/19 08:57 Hydralazine HCl (Apresoline) 10 mg Q4H PRN IV bp over 160 syst 07/19/19 06:30 08/05/19 06:29 Insulin Aspart (NovoLOG) Q6HR SUBQ 07/19/19 12:00 08/11/19 16:29 07/19/19 17:39 Nitroglycerin (Ntg) 1 patch Q24H TDERMAL 07/19/19 12:30 08/05/19 12:29 Pantoprazole (Protonix) 40 mg Q12HR IV 07/19/19 09:00 08/04/19 11:14 07/20/19 08:57 Potassium Chloride (K-Dur) 20 meq TWICE A DAY GT 07/19/19 09:00 08/13/19 13:09 07/20/19 08:57 Promethazine HCl/ Codeine (Phenergan with Codeine) 5 ml Q4H PRN ORAL For Cough 07/19/19 06:30 08/03/19 06:29 Tamsulosin HCl (Flomax) 0.4 mg BEDTIME ORAL 07/19/19 21:00 08/12/19 20:59 07/19/19 21:06 Allyn Little MD Jul 20, 2019 09:28
--- NOTE | 2019-07-20 09:45 | Cardiac Electrophysiology PN ---
Assessment/Plan Assessment/Plan 1. Status post bradycardic arrest off any sinus node or AV destinee blocking agents. 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 Likely precipitated by respiratory failure The first two troponins on admission were negative. 5 follow up troponins were mildly elevated likely due to arrest No further critical hillary episode on tele. Lowest HR 50s 2. NSTEMI. Due to arrest 3. Respiratory failure. D. Dimer positive. VQ scan pre code was low probability. Extubated 07/11/19 3. Hypotension. Improved with IV fluid 5. Dehydration and hyperatremia, resolved 6. S/P PEG 7. Diabetes. 8. Benign prostatic hypertrophy.SKYLER Callejas. S/P CT abdomen that showed Left hydronephrosis 9. Full code. CARI RN Subjective Subjective PEG feeding ongoing. In SR with first degree AVB. Objective Last 24 Hour Vital Signs Date Time Temp Pulse Resp B/P (MAP) Pulse Ox O2 Delivery O2 Flow Rate FiO2 07/20/19 08:00 97.9 72 20 115/63 (80) 100 07/20/19 07:20 Nasal Cannula 3.0 32 07/20/19 07:20 78 18 97 Nasal Cannula 3.0 32 07/20/19 07:19 80 18 100 Nasal Cannula 2.0 28 76 18 96 07/20/19 04:00 97.2 68 20 112/52 (72) 99 07/20/19 04:00 73 07/20/19 04:00 Nasal Cannula 2.0 Nasal Cannula 2.0 07/20/19 00:00 79 07/20/19 00:00 97.9 79 20 122/61 (81) 90 07/19/19 23:27 87 19 100 Nasal Cannula 2.0 28 75 17 98 07/19/19 20:00 76 07/19/19 20:00 97.7 60 20 122/63 (82) 97 80 07/19/19 20:00 Nasal Cannula 2.0 Nasal Cannula 2.0 07/19/19 19:43 82 19 100 Nasal Cannula 2.0 28 77 20 98 07/19/19 19:43 77 20 98 Nasal Cannula 3.0 32 07/19/19 19:43 Nasal Cannula 3.0 32 07/19/19 16:00 98.1 60 20 120/70 (87) 98 60 07/19/19 16:00 Nasal Cannula 2.0 Nasal Cannula 2.0 07/19/19 16:00 60 07/19/19 15:17 84 17 99 Nasal Cannula 2.0 28 80 19 97 07/19/19 12:30 103/50 07/19/19 12:00 Nasal Cannula 2.0 Nasal Cannula 2.0 07/19/19 12:00 97.9 87 20 116/61 (79) 93 87 07/19/19 12:00 68 07/19/19 11:10 86 22 98 Nasal Cannula 2.0 28 82 22 96 07/19/19 09:49 Nasal Cannula 2.0 Nasal Cannula 2.0 Intake and Output 07/19/19 07/20/19 19:00 07:00 Output Total 1400 ml Balance -1400 ml Output Urine Total 1400 ml Stool Total 0 ml # Bowel Movements 2 Laboratory Tests Test 07/20/19 06:50 White Blood Count 8.4 K/UL (4.8-10.8) Red Blood Count 3.36 M/UL (4.70-6.10) L Hemoglobin 9.5 G/DL (14.2-18.0) L Hematocrit 28.8 % (42.0-52.0) L Mean Corpuscular Volume 85 FL (80-99) Mean Corpuscular Hemoglobin 28.3 PG (27.0-31.0) Mean Corpuscular Hemoglobin Concent 33.1 G/DL (32.0-36.0) Red Cell Distribution Width 16.4 % (11.6-14.8) H Platelet Count 170 K/UL (150-450) Mean Platelet Volume 7.8 FL (6.5-10.1) Neutrophils (%) (Auto) 75.2 % (45.0-75.0) H Lymphocytes (%) (Auto) 13.5 % (20.0-45.0) L Monocytes (%) (Auto) 7.8 % (1.0-10.0) Eosinophils (%) (Auto) 2.5 % (0.0-3.0) Basophils (%) (Auto) 1.1 % (0.0-2.0) Sodium Level 143 MMOL/L (136-145) Potassium Level 4.8 MMOL/L (3.5-5.1) Chloride Level 105 MMOL/L (98-107) Carbon Dioxide Level 34 MMOL/L (21-32) H Anion Gap 4 mmol/L (5-15) L Blood Urea Nitrogen 27 mg/dL (7-18) H Creatinine 0.8 MG/DL (0.55-1.30) Estimat Glomerular Filtration Rate > 60 mL/min (>60) Glucose Level 114 MG/DL (74-106) H Calcium Level 8.6 MG/DL (8.5-10.1) Total Bilirubin 0.3 MG/DL (0.2-1.0) Aspartate Amino Transf (AST/SGOT) 16 U/L (15-37) Alanine Aminotransferase (ALT/SGPT) 40 U/L (12-78) Alkaline Phosphatase 116 U/L (46-116) Pro-B-Type Natriuretic Peptide 418 pg/mL (0-125) H Total Protein 6.1 G/DL (6.4-8.2) L Albumin 2.6 G/DL (3.4-5.0) L Globulin 3.5 g/dL Albumin/Globulin Ratio 0.7 (1.0-2.7) L Objective HEAD AND NECK: Mild JVD. LUNGS: Decreased breath sounds. CARDIOVASCULAR: RRR. No G/R/M ABDOMEN: Status post G-tube. EXTREMITIES: No pitting edema. Enio Santos MD Jul 20, 2019 09:44
[2019-07-20 12:00] VITALS: BP 115/55
[2019-07-20] MEDS: Nitroglycerin Patch 0.4mg TDERMAL SCH (13:21)
--- NOTE | 2019-07-20 14:44 | Nephrology Progress Note ---
Assessment/Plan Problem List: (1) RIA (acute kidney injury) (2) Cardiac arrest with successful resuscitation (3) Respiratory failure with hypoxia (4) Hydronephrosis Assessment patient have Ria due to Low BP and s/p arrest elevated liver enzymes for same reason others: 1. Acute hypoxemic respiratory failure. 2. Hypotension possible sepsis. 3. Diabetes type 2. 4. Parkinson disease. 5. Hypercholesterolemia. 6. EjFx 65% reported 7. Dysphagia. 8. Benign prostatic hypertrophy. Plan s/p Cr 1.6 now wnl extubated 07/11 Nitro- Phos , K , Mag supplement as needed keep BP above 100 syst Pulm support monitor renal parameters discussed with RN VALENTINA: Moderate left hydronephrosis. Juan catheter. Echogenic right kidney. Suspected medical renal disease. CXR 07/15 IMPRESSION: Infiltrate and/or pleural effusion suspected at the left lung base. Mild pulmonary vascular congestion not excluded. Correlate clinically. Subjective ROS Limited/Unobtainable: No Constitutional: Reports: malaise, weakness Objective Objective Last 24 Hour Vital Signs Date Time Temp Pulse Resp B/P (MAP) Pulse Ox O2 Delivery O2 Flow Rate FiO2 07/20/19 13:21 115/55 07/20/19 12:00 97.6 83 20 115/55 (75) 100 07/20/19 12:00 Nasal Cannula 2.0 Nasal Cannula 2.0 07/20/19 12:00 75 07/20/19 09:00 Nasal Cannula 2.0 Nasal Cannula 2.0 07/20/19 08:00 97.9 72 20 115/63 (80) 100 07/20/19 08:00 80 07/20/19 07:20 Nasal Cannula 3.0 32 07/20/19 07:20 78 18 97 Nasal Cannula 3.0 32 07/20/19 07:19 80 18 100 Nasal Cannula 2.0 28 76 18 96 07/20/19 04:00 97.2 68 20 112/52 (72) 99 07/20/19 04:00 73 07/20/19 04:00 Nasal Cannula 2.0 Nasal Cannula 2.0 07/20/19 00:00 79 07/20/19 00:00 97.9 79 20 122/61 (81) 90 07/19/19 23:27 87 19 100 Nasal Cannula 2.0 28 75 17 98 07/19/19 20:00 76 07/19/19 20:00 97.7 60 20 122/63 (82) 97 80 07/19/19 20:00 Nasal Cannula 2.0 Nasal Cannula 2.0 07/19/19 19:43 82 19 100 Nasal Cannula 2.0 28 77 20 98 07/19/19 19:43 77 20 98 Nasal Cannula 3.0 32 07/19/19 19:43 Nasal Cannula 3.0 32 07/19/19 16:00 98.1 60 20 120/70 (87) 98 60 07/19/19 16:00 Nasal Cannula 2.0 Nasal Cannula 2.0 07/19/19 16:00 60 07/19/19 15:17 84 17 99 Nasal Cannula 2.0 28 80 19 97 Intake and Output 07/19/19 07/20/19 19:00 07:00 Output Total 1400 ml Balance -1400 ml Output Urine Total 1400 ml Stool Total 0 ml # Bowel Movements 2 Laboratory Tests 07/20/19 06:50: White Blood Count 8.4, Red Blood Count 3.36L, Hemoglobin 9.5L, Hematocrit 28.8L , Mean Corpuscular Volume 85, Mean Corpuscular Hemoglobin 28.3, Mean Corpuscular Hemoglobin Concent 33.1, Red Cell Distribution Width 16.4H, Platelet Count 170, Mean Platelet Volume 7.8, Neutrophils (%) (Auto) 75.2H, Lymphocytes (%) (Auto) 13.5L, Monocytes (%) (Auto) 7.8, Eosinophils (%) (Auto) 2.5, Basophils (%) (Auto) 1.1, Sodium Level 143, Potassium Level 4.8, Chloride Level 105, Carbon Dioxide Level 34H, Anion Gap 4L, Blood Urea Nitrogen 27H, Creatinine 0.8, Estimat Glomerular Filtration Rate > 60, Glucose Level 114H, Calcium Level 8.6, Total Bilirubin 0.3, Aspartate Amino Transf (AST/SGOT) 16, Alanine Aminotransferase (ALT/SGPT) 40, Alkaline Phosphatase 116, Pro-B-Type Natriuretic Peptide 418H, Total Protein 6.1L, Albumin 2.6L, Globulin 3.5, Albumin/Globulin Ratio 0.7L Height (Feet): 5 Height (Inches): 8.00 Weight (Pounds): 192 Cardiovascular: normal rate Respiratory/Chest: decreased breath sounds Abdomen: soft, distended Objective no change Oskar Mohr MD Jul 20, 2019 14:44
--- NOTE | 2019-07-20 15:05 | Diagnostic Imaging Report ---
EXAM: XR Chest, 1 View CLINICAL HISTORY: DYSPNEA TECHNIQUE: Frontal view of the chest. COMPARISON: Chest radiograph on 07/19/2019 FINDINGS: Hardware: None. Lungs/pleura: Bibasilar opacities may represent atelectasis versus pneumonia. Probable small right pleural effusion. Heart/mediastinum: Stable enlargement of the cardiomediastinal silhouette. Atherosclerotic calcifications in the aorta. Soft tissues: Unremarkable. Bones: No acute fracture. Degenerative changes of the spine. Upper abdomen: Normal. IMPRESSION: Bibasilar opacities may represent atelectasis versus pneumonia. Probable small right pleural effusion.
[2019-07-20 16:00] VITALS: BP 124/63
--- NOTE | 2019-07-20 17:03 | Internal Med Progress Note ---
Subjective Date of Service: Jul 20, 2019 Physician Name Shukri Glover Attending Physician Rayshawn Woods MD Current Medications Medications (Trade) Dose Ordered Sig/Genoveva Route PRN Reason Start Time Stop Time Status Last Admin Dose Admin Acetaminophen (Tylenol) 650 mg Q6H PRN ORAL Mild Pain/Temp > 100.5 07/19/19 06:30 08/03/19 06:29 Albuterol/ Ipratropium (Albuterol/ Ipratropium) 3 ml Q4HRT HHN 07/19/19 07:00 07/23/19 17:25 07/20/19 15:41 Dextrose (Dextrose 50%) 25 ml Q30M PRN IV Hypoglycemia 07/19/19 06:30 08/11/19 11:59 Dextrose (Dextrose 50%) 50 ml Q30M PRN IV Hypoglycemia 07/19/19 06:30 08/11/19 11:59 Finasteride (Proscar) 5 mg DAILY ORAL 07/19/19 09:00 08/13/19 08:59 07/20/19 08:57 Hydralazine HCl (Apresoline) 10 mg Q4H PRN IV bp over 160 syst 07/19/19 06:30 08/05/19 06:29 Insulin Aspart (NovoLOG) Q6HR SUBQ 07/19/19 12:00 08/11/19 16:29 07/20/19 13:22 Nitroglycerin (Ntg) 1 patch Q24H TDERMAL 07/19/19 12:30 08/05/19 12:29 07/20/19 13:21 Pantoprazole (Protonix) 40 mg Q12HR IV 07/19/19 09:00 08/04/19 11:14 07/20/19 08:57 Potassium Chloride (K-Dur) 20 meq TWICE A DAY GT 07/19/19 09:00 08/13/19 13:09 07/20/19 08:57 Promethazine HCl/ Codeine (Phenergan with Codeine) 5 ml Q4H PRN ORAL For Cough 07/19/19 06:30 08/03/19 06:29 Tamsulosin HCl (Flomax) 0.4 mg BEDTIME ORAL 07/19/19 21:00 08/12/19 20:59 07/19/19 21:06 Allergies: Coded Allergies: PENICILLINS (Verified Allergy, Unknown, 07/04/19) ROS Limited/Unobtainable: No Constitutional: Reports: no symptoms HEENT: Reports: no symptoms Cardiovascular: Reports: no symptoms Respiratory: Reports: no symptoms Gastrointestinal/Abdominal: Reports: no symptoms Genitourinary: Reports: no symptoms Neurologic/Psychiatric: Reports: no symptoms Subjective 83 YO M admitted with dyspnea, now respiratory failure. Cover for Int Med-Dr Woods. Extubated 07/11/19 Objective Last Vital Signs Date Time Temp Pulse Resp B/P (MAP) Pulse Ox O2 Delivery O2 Flow Rate FiO2 07/20/19 15:38 81 18 99 Nasal Cannula 2.0 28 82 20 97 07/20/19 13:21 115/55 07/20/19 12:00 97.6 Laboratory Tests Test 07/20/19 06:50 White Blood Count 8.4 K/UL (4.8-10.8) Red Blood Count 3.36 M/UL (4.70-6.10) L Hemoglobin 9.5 G/DL (14.2-18.0) L Hematocrit 28.8 % (42.0-52.0) L Mean Corpuscular Volume 85 FL (80-99) Mean Corpuscular Hemoglobin 28.3 PG (27.0-31.0) Mean Corpuscular Hemoglobin Concent 33.1 G/DL (32.0-36.0) Red Cell Distribution Width 16.4 % (11.6-14.8) H Platelet Count 170 K/UL (150-450) Mean Platelet Volume 7.8 FL (6.5-10.1) Neutrophils (%) (Auto) 75.2 % (45.0-75.0) H Lymphocytes (%) (Auto) 13.5 % (20.0-45.0) L Monocytes (%) (Auto) 7.8 % (1.0-10.0) Eosinophils (%) (Auto) 2.5 % (0.0-3.0) Basophils (%) (Auto) 1.1 % (0.0-2.0) Sodium Level 143 MMOL/L (136-145) Potassium Level 4.8 MMOL/L (3.5-5.1) Chloride Level 105 MMOL/L (98-107) Carbon Dioxide Level 34 MMOL/L (21-32) H Anion Gap 4 mmol/L (5-15) L Blood Urea Nitrogen 27 mg/dL (7-18) H Creatinine 0.8 MG/DL (0.55-1.30) Estimat Glomerular Filtration Rate > 60 mL/min (>60) Glucose Level 114 MG/DL (74-106) H Calcium Level 8.6 MG/DL (8.5-10.1) Total Bilirubin 0.3 MG/DL (0.2-1.0) Aspartate Amino Transf (AST/SGOT) 16 U/L (15-37) Alanine Aminotransferase (ALT/SGPT) 40 U/L (12-78) Alkaline Phosphatase 116 U/L (46-116) Pro-B-Type Natriuretic Peptide 418 pg/mL (0-125) H Total Protein 6.1 G/DL (6.4-8.2) L Albumin 2.6 G/DL (3.4-5.0) L Globulin 3.5 g/dL Albumin/Globulin Ratio 0.7 (1.0-2.7) L Intake and Output 07/19/19 07/20/19 19:00 07:00 Output Total 1400 ml Balance -1400 ml Output Urine Total 1400 ml Stool Total 0 ml # Bowel Movements 2 Objective PHYSICAL EXAMINATION: GENERAL: The patient is a well-developed and well-nourished male, in moderate respiratory distress. HEENT: Eyes, pupils are equal and responsive to light and accommodation. Extraocular movements are intact. NECK: Supple without lymphadenopathy. CHEST: nasal canula; Coarse breath sounds bilaterally with expiratory wheezes. Otherwise, without crackles. ABDOMINAL: Soft, nontender, and nondistended. Positive bowel sounds. No evidence of hepatosplenomegaly. Currently, no rebound or guarding noted. CARDIOVASCULAR: Tachycardic. Regular rhythm. S1 and S2 are normal without murmurs, rubs, or gallops. GENITOURINARY: Deferred. NEUROLOGICAL: Cranial nerves II to XII are grossly intact without focal deficits. EXTREMITIES: Negative for clubbing, cyanosis, or edema. Assessment/Plan Assessment/Plan ASSESSMENT: This is an 83-year-old male. 1. Dyspnea. 2. Respiratory distress. 3. Diabetes type 2. 4. Parkinson disease. 5. Hypercholesterolemia. 6. Dilated cardiomyopathy. 7. Dysphagia. 8. Benign prostatic hypertrophy. 9. Left Ureteral stone/hydronephrosis TREATMENT: 1. Dyspnea/respiratory distress. A Pulmonary consultation has been obtained with Dr. Kathryn Lopez. The patient is currently extubated. ABX=Ceftriaxone. We will follow recommendations of Pulmonary. 2. Diabetes type 2. 3. Hypercholesterolemia. 4. Dilated cardiomyopathy. 5. Dysphagia. The patient is status post PEG placement. 6. Hypertensive heart disease. 7. Benign prostatic hypertrophy. 8. ID=DR. Page 9. Urology = Dr. Callejas; possible cystoscopy/ureteroscopy next week 10. Will require cardiology clearance for cystoscopy Shukri Glover MD Jul 20, 2019 17:03
--- NOTE | 2019-07-20 19:30 | NUR ---
NURSE NOTES: Received patient from VIRGIL Batista, patient in stable condition, AOx1, IV site asymptomatic, intact, Gtube running, patent, gtube stoma intact, F/C draining to gravity, bed low&locked, side rails up x3, call light within reach will continue to monitor and reassess
--- NOTE | 2019-07-20 19:53 | NUR ---
HAND-OFF: Report given to Loreta HERMAN. Patient stable. Plan of care endorsed.
[2019-07-20 20:00] VITALS: BP 131/68
[2019-07-20] MEDS ORDERED: Albuterol/Ipratropium 3ml neb HHN PRN (21:00)
[2019-07-20] MEDS: Tamsulosin 0.4mg cap ORAL SCH (21:51)
[2019-07-21] VITALS (7 sets, daily range): BP systolic 99–119; BP diastolic 47–71
[2019-07-21] MEDS: Albuterol/Ipratropium 3ml neb HHN SCH ×6 (04:06→23:21)
[2019-07-21] MEDS: NovoLOG Insulin Flexpen SUBQ SCH ×4 (06:00→18:00)
--- NOTE | 2019-07-21 07:02 | NUR ---
HAND-OFF: Report given to VIRGIL Batista,patient in stable condition, plan of care endorsed.
--- NOTE | 2019-07-21 07:31 | NUR ---
NURSE NOTES: Patient stable AOx1 no s/sx of distress. RR even and unlabored on 2L NC. Vital AF 1.2 infusing through Gtube. Side rails upx2, call light within reach, bed low and locked.
[2019-07-21 08:05] LABS: BASOPHILS % (AUTO) 0.6 % (0.0-2.0); EOSINOPHILS % (AUTO) 2.3 % (0.0-3.0); HEMATOCRIT 29.7 % (42.0-52.0); HEMOGLOBIN 9.7 G/DL (14.2-18.0); MEAN CORPUSCULAR VOLUME 86 FL (80-99); NEUTROPHILS % (AUTO) 79.1 % (45.0-75.0); PLATELET COUNT 198 K/UL (150-450); RED BLOOD COUNT 3.47 M/UL (4.70-6.10); RED CELL DISTRIBUTION WIDTH 15.8 % (11.6-14.8); WHITE BLOOD COUNT 9.1 K/UL (4.8-10.8)
[2019-07-21 08:37] LABS: ANION GAP 4 mmol/L (5-15); BLOOD UREA NITROGEN 23 mg/dL (7-18); CALCIUM 8.4 MG/DL (8.5-10.1); CARBON DIOXIDE 33 MMOL/L (21-32); CHLORIDE 103 MMOL/L (98-107); CREATININE 0.8 MG/DL (0.55-1.30); POTASSIUM 4.4 MMOL/L (3.5-5.1); SODIUM 140 MMOL/L (136-145)
--- NOTE | 2019-07-21 08:42 | Pulmonology Progress Note ---
Assessment/Plan Assessment/Plan ASSESSMENT shock s/p bradycardic arrest with successful resuscitation Acute hypoxemic respiratory failure requiring intubation, s/p extubation 07/11 Elevated troponin/NSTEMI likely due to cardiac arrest Sepsis Probable UTI Aspiration pneumonia versus pneumonitis Left hydronephrosis with obstructive uropathy Acute kidney injury-resolved Dehydration Hyponatremia Dysphagia feeding by G-tube Diabetes mellitus Parkinson disease Anemia PLAN OF CARE tele s/p extubation 07/11 O2 titrate to keep sat above 90%, HHN CXR 07/13 - > Improving pulmonary venous congestion with unchanged small left pleural effusion and slight worsening of left basilar infiltrate, indeterminate between atelectasis and pneumonia Venous Duplex negative VQ scan with low prob of PE abx as per ID monitor h/d status - improved; off any AV blocking agents cardio follows ECHO with pEF 60% and RVSP of 32 off stress dose of steroids IVF, monitor renal parameters, correct lytes prn calcium WNL if corrected for low albumin / as per nephro explanation renal US+mod L hydro CT A/P Moderate left hydroureteronephrosis secondary to a 1.5 cm left mid to distal ureter stone. Multiple nonobstructive stones within the right kidney. Thickening of the wall the urinary bladder consistent with cystitis. Juan catheter in good position. 10 x 7 cm left inguinal hernia containing bowel. No evidence of obstruction. Correlate clinically. Arterial vascular disease Anasarca. Trace left pleural effusion. Bilateral posterior basal atelectasis. Cardiomegaly. Degenerative changes of the spine as described above. urologist and nephro follows GTF, asp precautions BS management with SSI case discussed and evaluated by supervising physician Subjective Allergies: Coded Allergies: PENICILLINS (Verified Allergy, Unknown, 07/04/19) Subjective extubated 07/11, transferred to [facility], now on tele mild leukocytosis resolved pulse ox stable on o2 via NC Objective Last 24 Hour Vital Signs Date Time Temp Pulse Resp B/P (MAP) Pulse Ox O2 Delivery O2 Flow Rate FiO2 07/21/19 08:00 96.3 78 20 113/52 (72) 95 07/21/19 07:12 73 18 98 Nasal Cannula 3.0 32 71 18 99 07/21/19 07:12 99 Nasal Cannula 3.0 32 07/21/19 04:09 71 07/21/19 04:06 77 20 98 Nasal Cannula 2.0 28 79 20 95 07/21/19 04:00 97.4 73 18 115/66 (82) 93 07/21/19 00:00 76 07/21/19 00:00 96.9 69 18 119/71 (87) 93 07/20/19 22:21 75 20 96 Nasal Cannula 2.0 28 77 20 93 07/20/19 20:00 97.5 78 19 131/68 (89) 93 07/20/19 20:00 Nasal Cannula 2.0 Nasal Cannula 2.0 07/20/19 20:00 83 07/20/19 19:22 74 20 97 Nasal Cannula 2.0 28 70 18 92 07/20/19 19:22 92 Nasal Cannula 3.0 32 07/20/19 16:00 Nasal Cannula 2.0 Nasal Cannula 2.0 07/20/19 16:00 96.9 76 20 124/63 (83) 94 07/20/19 16:00 86 07/20/19 15:38 81 18 99 Nasal Cannula 2.0 28 82 20 97 07/20/19 13:21 115/55 07/20/19 12:00 97.6 83 20 115/55 (75) 100 07/20/19 12:00 Nasal Cannula 2.0 Nasal Cannula 2.0 07/20/19 12:00 75 07/20/19 09:00 Nasal Cannula 2.0 Nasal Cannula 2.0 Intake and Output 07/20/19 07/21/19 19:00 07:00 Intake Total 660 ml 840 ml Output Total 950 ml 1200 ml Balance -290 ml -360 ml Free Water 120 ml Tube Feeding 660 ml 720 ml Output Urine Total 950 ml 1200 ml # Bowel Movements 3 1 Objective General Appearance: no acute distress HEENT: normocephalic, atraumatic, anicteric Respiratory/Chest: lungs clear, no accessory muscle use Cardiovascular: normal rate Abdomen: normal bowel sounds, non distended, G tube Extremities: no edema, pedal pulses normal Neurologic/Psychiatric: abnormal gait Musculoskeletal: atrophy Laboratory Tests 07/21/19 07:05: White Blood Count 9.1, Red Blood Count 3.47L, Hemoglobin 9.7L, Hematocrit 29.7L , Mean Corpuscular Volume 86, Mean Corpuscular Hemoglobin 28.0, Mean Corpuscular Hemoglobin Concent 32.8, Red Cell Distribution Width 15.8H, Platelet Count 198, Mean Platelet Volume 10.0, Neutrophils (%) (Auto) 79.1H, Lymphocytes (%) (Auto) 11.0L, Monocytes (%) (Auto) 7.0, Eosinophils (%) (Auto) 2.3, Basophils (%) (Auto) 0.6, Sodium Level [Pending], Potassium Level [Pending] , Chloride Level [Pending], Carbon Dioxide Level [Pending], Blood Urea Nitrogen [Pending], Creatinine [Pending], Estimat Glomerular Filtration Rate [Pending], Glucose Level [Pending], Calcium Level [Pending] Current Medications Medications (Trade) Dose Ordered Sig/Genoveva Route PRN Reason Start Time Stop Time Status Last Admin Dose Admin Acetaminophen (Tylenol) 650 mg Q6H PRN ORAL Mild Pain/Temp > 100.5 07/19/19 06:30 08/03/19 06:29 Albuterol/ Ipratropium (Albuterol/ Ipratropium) 3 ml Q4H PRN HHN Shortness of Breath 07/20/19 21:00 07/25/19 20:59 Albuterol/ Ipratropium (Albuterol/ Ipratropium) 3 ml Q4HRT HHN 07/19/19 07:00 07/23/19 17:25 07/21/19 07:12 Dextrose (Dextrose 50%) 25 ml Q30M PRN IV Hypoglycemia 07/19/19 06:30 08/11/19 11:59 Dextrose (Dextrose 50%) 50 ml Q30M PRN IV Hypoglycemia 07/19/19 06:30 08/11/19 11:59 Finasteride (Proscar) 5 mg DAILY ORAL 07/19/19 09:00 08/13/19 08:59 07/20/19 08:57 Hydralazine HCl (Apresoline) 10 mg Q4H PRN IV bp over 160 syst 07/19/19 06:30 08/05/19 06:29 Insulin Aspart (NovoLOG) Q6HR SUBQ 07/19/19 12:00 08/11/19 16:29 07/20/19 13:22 Nitroglycerin (Ntg) 1 patch Q24H TDERMAL 07/19/19 12:30 08/05/19 12:29 07/20/19 13:21 Pantoprazole (Protonix) 40 mg Q12HR IV 07/19/19 09:00 08/04/19 11:14 07/20/19 21:51 Potassium Chloride (K-Dur) 20 meq TWICE A DAY GT 07/19/19 09:00 08/13/19 13:09 07/20/19 08:57 Promethazine HCl/ Codeine (Phenergan with Codeine) 5 ml Q4H PRN ORAL For Cough 07/19/19 06:30 08/03/19 06:29 Tamsulosin HCl (Flomax) 0.4 mg BEDTIME ORAL 07/19/19 21:00 08/12/19 20:59 07/20/19 21:51 Valerie Balderrama [employer] Jul 21, 2019 08:42
--- NOTE | 2019-07-21 09:09 | Urology Progress Note ---
Assessment/Plan Assessment/Plan: 1. Left-sided hydronephrosis, poss chronic. 2. Proteinuria. 3. Hematuria. 4. Pyuria. 5. Urinary retention. 6. BPH history. 7. Rule out neurogenic bladder. 8. Mild acute kidney injury, improved. 9. Left ureteral calculus. 10. Right renal calculi. 11. Cystitis. 12. Left inguinal hernia. monitor clinically maintain nixon hand irrigated and do PRN cath secured to pt's leg s/p abx monitor renal fxn flomax and proscar added will consider tx of stones once more medically stabilized currently no flank pain and normal Cr voiding trial at some point? check KUB Subjective Allergies: Coded Allergies: PENICILLINS (Verified Allergy, Unknown, 07/04/19) Subjective all noted, feels fair, no pain Objective Last 24 Hour Vital Signs Date Time Temp Pulse Resp B/P (MAP) Pulse Ox O2 Delivery O2 Flow Rate FiO2 07/21/19 08:00 96.3 78 20 113/52 (72) 95 07/21/19 07:12 73 18 98 Nasal Cannula 3.0 32 71 18 99 07/21/19 07:12 99 Nasal Cannula 3.0 32 07/21/19 04:09 71 07/21/19 04:06 77 20 98 Nasal Cannula 2.0 28 79 20 95 07/21/19 04:00 97.4 73 18 115/66 (82) 93 07/21/19 00:00 76 07/21/19 00:00 96.9 69 18 119/71 (87) 93 07/20/19 22:21 75 20 96 Nasal Cannula 2.0 28 77 20 93 07/20/19 20:00 97.5 78 19 131/68 (89) 93 07/20/19 20:00 Nasal Cannula 2.0 Nasal Cannula 2.0 07/20/19 20:00 83 07/20/19 19:22 74 20 97 Nasal Cannula 2.0 28 70 18 92 07/20/19 19:22 92 Nasal Cannula 3.0 32 07/20/19 16:00 Nasal Cannula 2.0 Nasal Cannula 2.0 07/20/19 16:00 96.9 76 20 124/63 (83) 94 07/20/19 16:00 86 07/20/19 15:38 81 18 99 Nasal Cannula 2.0 28 82 20 97 07/20/19 13:21 115/55 07/20/19 12:00 97.6 83 20 115/55 (75) 100 07/20/19 12:00 Nasal Cannula 2.0 Nasal Cannula 2.0 07/20/19 12:00 75 Intake and Output 07/20/19 07/21/19 19:00 07:00 Intake Total 660 ml 840 ml Output Total 950 ml 1200 ml Balance -290 ml -360 ml Free Water 120 ml Tube Feeding 660 ml 720 ml Output Urine Total 950 ml 1200 ml # Bowel Movements 3 1 Microbiology Date/Time Source Procedure Growth Status 07/11/19 12:00 Blood Blood Culture - Final NO GROWTH AFTER 5 DAYS Complete 07/04/19 10:15 Sputum Gram Stain - Final Complete 07/04/19 10:15 Sputum Culture - Final Nicolle Albicans Usual Respiratory Valery Complete 07/11/19 21:20 Urine,Clean Catch Urine Culture - Final NO GROWTH AFTER 48 HOURS Complete 07/04/19 00:43 Rectum - Final NO CARBAPENEM-RESISTANT ENTEROBACTERI... Complete Current Medications Medications (Trade) Dose Ordered Sig/Genoveva Route PRN Reason Start Time Stop Time Status Last Admin Dose Admin Acetaminophen (Tylenol) 650 mg Q6H PRN ORAL Mild Pain/Temp > 100.5 07/19/19 06:30 08/03/19 06:29 Albuterol/ Ipratropium (Albuterol/ Ipratropium) 3 ml Q4H PRN HHN Shortness of Breath 07/20/19 21:00 07/25/19 20:59 Albuterol/ Ipratropium (Albuterol/ Ipratropium) 3 ml Q4HRT HHN 07/19/19 07:00 07/23/19 17:25 07/21/19 07:12 Dextrose (Dextrose 50%) 25 ml Q30M PRN IV Hypoglycemia 07/19/19 06:30 08/11/19 11:59 Dextrose (Dextrose 50%) 50 ml Q30M PRN IV Hypoglycemia 07/19/19 06:30 08/11/19 11:59 Finasteride (Proscar) 5 mg DAILY ORAL 07/19/19 09:00 08/13/19 08:59 07/20/19 08:57 Hydralazine HCl (Apresoline) 10 mg Q4H PRN IV bp over 160 syst 07/19/19 06:30 08/05/19 06:29 Insulin Aspart (NovoLOG) Q6HR SUBQ 07/19/19 12:00 08/11/19 16:29 07/20/19 13:22 Nitroglycerin (Ntg) 1 patch Q24H TDERMAL 07/19/19 12:30 08/05/19 12:29 07/20/19 13:21 Pantoprazole (Protonix) 40 mg Q12HR IV 07/19/19 09:00 08/04/19 11:14 07/20/19 21:51 Potassium Chloride (K-Dur) 20 meq TWICE A DAY GT 07/19/19 09:00 08/13/19 13:09 07/20/19 08:57 Promethazine HCl/ Codeine (Phenergan with Codeine) 5 ml Q4H PRN ORAL For Cough 07/19/19 06:30 08/03/19 06:29 Tamsulosin HCl (Flomax) 0.4 mg BEDTIME ORAL 07/19/19 21:00 08/12/19 20:59 07/20/19 21:51 Laboratory Tests 07/21/19 07:05: White Blood Count 9.1, Red Blood Count 3.47L, Hemoglobin 9.7L, Hematocrit 29.7L , Mean Corpuscular Volume 86, Mean Corpuscular Hemoglobin 28.0, Mean Corpuscular Hemoglobin Concent 32.8, Red Cell Distribution Width 15.8H, Platelet Count 198, Mean Platelet Volume 10.0, Neutrophils (%) (Auto) 79.1H, Lymphocytes (%) (Auto) 11.0L, Monocytes (%) (Auto) 7.0, Eosinophils (%) (Auto) 2.3, Basophils (%) (Auto) 0.6, Sodium Level 140, Potassium Level 4.4, Chloride Level 103, Carbon Dioxide Level 33H, Anion Gap 4L, Blood Urea Nitrogen 23H, Creatinine 0.8, Estimat Glomerular Filtration Rate > 60, Glucose Level 123H, Calcium Level 8.4L Height (Feet): 5 Height (Inches): 8.00 Weight (Pounds): 192 Objective exam stable nixon indwelling urine yellow/kristen CT A/P (07/12) noted Clayton Callejas MD Jul 21, 2019 09:09
[2019-07-21] MEDS: Pantoprazole Inj IV SCH ×2 (09:16→21:16)
--- NOTE | 2019-07-21 09:48 | Cardiac Electrophysiology PN ---
Assessment/Plan Assessment/Plan 1. Status post bradycardic arrest off any sinus node or AV destinee blocking agents. 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 Likely precipitated by respiratory failure The first two troponins on admission were negative. 5 follow up troponins were mildly elevated likely due to arrest No further critical hillary episode on tele. Lowest HR 50s 2. NSTEMI. Due to arrest 3. Respiratory failure. D. Dimer positive. VQ scan pre code was low probability. Extubated 07/11/19 3. Hypotension. Improved with IV fluid 5. Dehydration and hyperatremia, resolved 6. S/P PEG 7. Diabetes. 8. Benign prostatic hypertrophy.FU Dr. Callejas. S/P CT abdomen that showed Left hydronephrosis. Stable from Cardiac perspective to proceed with Cystoscopy, Ureteroscopy and Laser lithotripsy at Moderate risk Alert with no CP. EF 65% 9. Full code. CARI HERMAN and Dr. Callejas Subjective Subjective PEG feeding ongoing. In SR with first degree AVB. Is being considered for Cystoscopy for Left hydronephrosis and stones by Dr Callejas Objective Last 24 Hour Vital Signs Date Time Temp Pulse Resp B/P (MAP) Pulse Ox O2 Delivery O2 Flow Rate FiO2 07/21/19 08:00 96.3 78 20 113/52 (72) 95 07/21/19 08:00 76 07/21/19 07:12 73 18 98 Nasal Cannula 3.0 32 71 18 99 07/21/19 07:12 99 Nasal Cannula 3.0 32 07/21/19 04:09 71 07/21/19 04:06 77 20 98 Nasal Cannula 2.0 28 79 20 95 07/21/19 04:00 97.4 73 18 115/66 (82) 93 07/21/19 00:00 76 07/21/19 00:00 96.9 69 18 119/71 (87) 93 07/20/19 22:21 75 20 96 Nasal Cannula 2.0 28 77 20 93 07/20/19 20:00 97.5 78 19 131/68 (89) 93 07/20/19 20:00 Nasal Cannula 2.0 Nasal Cannula 2.0 07/20/19 20:00 83 07/20/19 19:22 74 20 97 Nasal Cannula 2.0 28 70 18 92 07/20/19 19:22 92 Nasal Cannula 3.0 32 07/20/19 16:00 Nasal Cannula 2.0 Nasal Cannula 2.0 07/20/19 16:00 96.9 76 20 124/63 (83) 94 07/20/19 16:00 86 07/20/19 15:38 81 18 99 Nasal Cannula 2.0 28 82 20 97 07/20/19 13:21 115/55 07/20/19 12:00 97.6 83 20 115/55 (75) 100 07/20/19 12:00 Nasal Cannula 2.0 Nasal Cannula 2.0 07/20/19 12:00 75 Intake and Output 07/20/19 07/21/19 19:00 07:00 Intake Total 660 ml 840 ml Output Total 950 ml 1200 ml Balance -290 ml -360 ml Free Water 120 ml Tube Feeding 660 ml 720 ml Output Urine Total 950 ml 1200 ml # Bowel Movements 3 1 Laboratory Tests Test 07/21/19 07:05 White Blood Count 9.1 K/UL (4.8-10.8) Red Blood Count 3.47 M/UL (4.70-6.10) L Hemoglobin 9.7 G/DL (14.2-18.0) L Hematocrit 29.7 % (42.0-52.0) L Mean Corpuscular Volume 86 FL (80-99) Mean Corpuscular Hemoglobin 28.0 PG (27.0-31.0) Mean Corpuscular Hemoglobin Concent 32.8 G/DL (32.0-36.0) Red Cell Distribution Width 15.8 % (11.6-14.8) H Platelet Count 198 K/UL (150-450) Mean Platelet Volume 10.0 FL (6.5-10.1) Neutrophils (%) (Auto) 79.1 % (45.0-75.0) H Lymphocytes (%) (Auto) 11.0 % (20.0-45.0) L Monocytes (%) (Auto) 7.0 % (1.0-10.0) Eosinophils (%) (Auto) 2.3 % (0.0-3.0) Basophils (%) (Auto) 0.6 % (0.0-2.0) Sodium Level 140 MMOL/L (136-145) Potassium Level 4.4 MMOL/L (3.5-5.1) Chloride Level 103 MMOL/L (98-107) Carbon Dioxide Level 33 MMOL/L (21-32) H Anion Gap 4 mmol/L (5-15) L Blood Urea Nitrogen 23 mg/dL (7-18) H Creatinine 0.8 MG/DL (0.55-1.30) Estimat Glomerular Filtration Rate > 60 mL/min (>60) Glucose Level 123 MG/DL (74-106) H Calcium Level 8.4 MG/DL (8.5-10.1) L Objective HEAD AND NECK: Mild JVD. LUNGS: Decreased breath sounds. CARDIOVASCULAR: RRR. No G/R/M ABDOMEN: Status post G-tube. EXTREMITIES: No pitting edema. Enio Santos MD Jul 21, 2019 09:48
--- NOTE | 2019-07-21 11:15 | Nephrology Progress Note ---
Assessment/Plan Problem List: (1) CARA (acute kidney injury) (2) Cardiac arrest with successful resuscitation (3) Respiratory failure with hypoxia (4) Hydronephrosis Assessment patient have Cara due to Low BP and s/p arrest elevated liver enzymes for same reason others: 1. Acute hypoxemic respiratory failure. 2. Hypotension possible sepsis. 3. Diabetes type 2. 4. Parkinson disease. 5. Hypercholesterolemia. 6. EjFx 65% reported 7. Dysphagia. 8. Benign prostatic hypertrophy. Plan s/p Cr 1.6 now wnl extubated 07/11 Nitro- Phos , K , Mag supplement as needed keep BP above 100 syst Pulm support monitor renal parameters discussed with RN VALENTINA: Moderate left hydronephrosis. Juan catheter. Echogenic right kidney. Suspected medical renal disease. CXR 07/15 IMPRESSION: Infiltrate and/or pleural effusion suspected at the left lung base. Mild pulmonary vascular congestion not excluded. Correlate clinically. Subjective ROS Limited/Unobtainable: No Constitutional: Reports: malaise, weakness Objective Objective Last 24 Hour Vital Signs Date Time Temp Pulse Resp B/P (MAP) Pulse Ox O2 Delivery O2 Flow Rate FiO2 07/21/19 09:00 Nasal Cannula 2.0 Nasal Cannula 2.0 07/21/19 08:00 96.3 78 20 113/52 (72) 95 07/21/19 08:00 76 07/21/19 07:12 73 18 98 Nasal Cannula 3.0 32 71 18 99 07/21/19 07:12 99 Nasal Cannula 3.0 32 07/21/19 04:09 71 07/21/19 04:06 77 20 98 Nasal Cannula 2.0 28 79 20 95 07/21/19 04:00 97.4 73 18 115/66 (82) 93 07/21/19 00:00 76 07/21/19 00:00 96.9 69 18 119/71 (87) 93 07/20/19 22:21 75 20 96 Nasal Cannula 2.0 28 77 20 93 07/20/19 20:00 97.5 78 19 131/68 (89) 93 07/20/19 20:00 Nasal Cannula 2.0 Nasal Cannula 2.0 07/20/19 20:00 83 07/20/19 19:22 74 20 97 Nasal Cannula 2.0 28 70 18 92 07/20/19 19:22 92 Nasal Cannula 3.0 32 2/15/20 16:00 Nasal Cannula 2.0 Nasal Cannula 2.0 07/20/19 16:00 96.9 76 20 124/63 (83) 94 07/20/19 16:00 86 07/20/19 15:38 81 18 99 Nasal Cannula 2.0 28 82 20 97 07/20/19 13:21 115/55 07/20/19 12:00 97.6 83 20 115/55 (75) 100 07/20/19 12:00 Nasal Cannula 2.0 Nasal Cannula 2.0 07/20/19 12:00 75 Intake and Output 07/20/19 07/21/19 19:00 07:00 Intake Total 660 ml 840 ml Output Total 950 ml 1200 ml Balance -290 ml -360 ml Free Water 120 ml Tube Feeding 660 ml 720 ml Output Urine Total 950 ml 1200 ml # Bowel Movements 3 1 Current Medications Medications (Trade) Dose Ordered Sig/Genoveva Route PRN Reason Start Time Stop Time Status Last Admin Dose Admin Acetaminophen (Tylenol) 650 mg Q6H PRN ORAL Mild Pain/Temp > 100.5 07/19/19 06:30 08/03/19 06:29 Albuterol/ Ipratropium (Albuterol/ Ipratropium) 3 ml Q4H PRN HHN Shortness of Breath 07/20/19 21:00 07/25/19 20:59 Albuterol/ Ipratropium (Albuterol/ Ipratropium) 3 ml Q4HRT HHN 07/19/19 07:00 07/23/19 17:25 07/21/19 07:12 Dextrose (Dextrose 50%) 25 ml Q30M PRN IV Hypoglycemia 07/19/19 06:30 08/11/19 11:59 Dextrose (Dextrose 50%) 50 ml Q30M PRN IV Hypoglycemia 07/19/19 06:30 08/11/19 11:59 Finasteride (Proscar) 5 mg DAILY ORAL 07/19/19 09:00 08/13/19 08:59 07/21/19 09:16 Hydralazine HCl (Apresoline) 10 mg Q4H PRN IV bp over 160 syst 07/19/19 06:30 08/05/19 06:29 Insulin Aspart (NovoLOG) Q6HR SUBQ 07/19/19 12:00 08/11/19 16:29 07/20/19 13:22 Nitroglycerin (Ntg) 1 patch Q24H TDERMAL 07/19/19 12:30 08/05/19 12:29 07/20/19 13:21 Pantoprazole (Protonix) 40 mg Q12HR IV 07/19/19 09:00 08/04/19 11:14 07/21/19 09:16 Potassium Chloride (K-Dur) 20 meq TWICE A DAY GT 07/19/19 09:00 08/13/19 13:09 07/21/19 09:16 Promethazine HCl/ Codeine (Phenergan with Codeine) 5 ml Q4H PRN ORAL For Cough 07/19/19 06:30 08/03/19 06:29 Tamsulosin HCl (Flomax) 0.4 mg BEDTIME ORAL 07/19/19 21:00 08/12/19 20:59 07/20/19 21:51 Laboratory Tests 07/21/19 07:05: White Blood Count 9.1, Red Blood Count 3.47L, Hemoglobin 9.7L, Hematocrit 29.7L , Mean Corpuscular Volume 86, Mean Corpuscular Hemoglobin 28.0, Mean Corpuscular Hemoglobin Concent 32.8, Red Cell Distribution Width 15.8H, Platelet Count 198, Mean Platelet Volume 10.0, Neutrophils (%) (Auto) 79.1H, Lymphocytes (%) (Auto) 11.0L, Monocytes (%) (Auto) 7.0, Eosinophils (%) (Auto) 2.3, Basophils (%) (Auto) 0.6, Sodium Level 140, Potassium Level 4.4, Chloride Level 103, Carbon Dioxide Level 33H, Anion Gap 4L, Blood Urea Nitrogen 23H, Creatinine 0.8, Estimat Glomerular Filtration Rate > 60, Glucose Level 123H, Calcium Level 8.4L Height (Feet): 5 Height (Inches): 8.00 Weight (Pounds): 192 General Appearance: no apparent distress Cardiovascular: normal rate Respiratory/Chest: decreased breath sounds Abdomen: soft Objective no change Oskar Mohr MD Jul 21, 2019 11:15
[2019-07-21] MEDS: Nitroglycerin Patch 0.4mg TDERMAL SCH (12:05)
--- NOTE | 2019-07-21 16:12 | Internal Med Progress Note ---
Subjective Date of Service: Jul 21, 2019 Physician Name Shukri Glover Attending Physician Rayshawn Woods MD Current Medications Medications (Trade) Dose Ordered Sig/Genoveva Route PRN Reason Start Time Stop Time Status Last Admin Dose Admin Acetaminophen (Tylenol) 650 mg Q6H PRN ORAL Mild Pain/Temp > 100.5 07/19/19 06:30 08/03/19 06:29 Albuterol/ Ipratropium (Albuterol/ Ipratropium) 3 ml Q4H PRN HHN Shortness of Breath 07/20/19 21:00 07/25/19 20:59 Albuterol/ Ipratropium (Albuterol/ Ipratropium) 3 ml Q4HRT HHN 07/19/19 07:00 07/23/19 17:25 07/21/19 12:19 Dextrose (Dextrose 50%) 25 ml Q30M PRN IV Hypoglycemia 07/19/19 06:30 08/11/19 11:59 Dextrose (Dextrose 50%) 50 ml Q30M PRN IV Hypoglycemia 07/19/19 06:30 08/11/19 11:59 Finasteride (Proscar) 5 mg DAILY ORAL 07/19/19 09:00 08/13/19 08:59 07/21/19 09:16 Hydralazine HCl (Apresoline) 10 mg Q4H PRN IV bp over 160 syst 07/19/19 06:30 08/05/19 06:29 Insulin Aspart (NovoLOG) Q6HR SUBQ 07/19/19 12:00 08/11/19 16:29 07/21/19 12:05 Nitroglycerin (Ntg) 1 patch Q24H TDERMAL 07/19/19 12:30 08/05/19 12:29 07/20/19 13:21 Pantoprazole (Protonix) 40 mg Q12HR IV 07/19/19 09:00 08/04/19 11:14 07/21/19 09:16 Potassium Chloride (K-Dur) 20 meq DAILY GT 07/22/19 09:00 08/21/19 08:59 Promethazine HCl/ Codeine (Phenergan with Codeine) 5 ml Q4H PRN ORAL For Cough 07/19/19 06:30 08/03/19 06:29 Tamsulosin HCl (Flomax) 0.4 mg BEDTIME ORAL 07/19/19 21:00 08/12/19 20:59 07/20/19 21:51 Allergies: Coded Allergies: PENICILLINS (Verified Allergy, Unknown, 07/04/19) ROS Limited/Unobtainable: No Constitutional: Reports: no symptoms HEENT: Reports: no symptoms Cardiovascular: Reports: no symptoms Respiratory: Reports: no symptoms Gastrointestinal/Abdominal: Reports: no symptoms Genitourinary: Reports: no symptoms Neurologic/Psychiatric: Reports: no symptoms Subjective 83 YO M admitted with dyspnea, now respiratory failure. Cover for Int Med-Dr Woods. Extubated 07/11/19 Objective Last Vital Signs Date Time Temp Pulse Resp B/P (MAP) Pulse Ox O2 Delivery O2 Flow Rate FiO2 07/21/19 12:05 101/49 07/21/19 12:00 69 07/21/19 12:00 97.3 20 99 07/21/19 11:59 Nasal Cannula 3.0 32 Laboratory Tests Test 07/21/19 07:05 White Blood Count 9.1 K/UL (4.8-10.8) Red Blood Count 3.47 M/UL (4.70-6.10) L Hemoglobin 9.7 G/DL (14.2-18.0) L Hematocrit 29.7 % (42.0-52.0) L Mean Corpuscular Volume 86 FL (80-99) Mean Corpuscular Hemoglobin 28.0 PG (27.0-31.0) Mean Corpuscular Hemoglobin Concent 32.8 G/DL (32.0-36.0) Red Cell Distribution Width 15.8 % (11.6-14.8) H Platelet Count 198 K/UL (150-450) Mean Platelet Volume 10.0 FL (6.5-10.1) Neutrophils (%) (Auto) 79.1 % (45.0-75.0) H Lymphocytes (%) (Auto) 11.0 % (20.0-45.0) L Monocytes (%) (Auto) 7.0 % (1.0-10.0) Eosinophils (%) (Auto) 2.3 % (0.0-3.0) Basophils (%) (Auto) 0.6 % (0.0-2.0) Sodium Level 140 MMOL/L (136-145) Potassium Level 4.4 MMOL/L (3.5-5.1) Chloride Level 103 MMOL/L (98-107) Carbon Dioxide Level 33 MMOL/L (21-32) H Anion Gap 4 mmol/L (5-15) L Blood Urea Nitrogen 23 mg/dL (7-18) H Creatinine 0.8 MG/DL (0.55-1.30) Estimat Glomerular Filtration Rate > 60 mL/min (>60) Glucose Level 123 MG/DL (74-106) H Calcium Level 8.4 MG/DL (8.5-10.1) L Intake and Output 07/20/19 07/21/19 19:00 07:00 Intake Total 660 ml 840 ml Output Total 950 ml 1200 ml Balance -290 ml -360 ml Free Water 120 ml Tube Feeding 660 ml 720 ml Output Urine Total 950 ml 1200 ml # Bowel Movements 3 1 Objective PHYSICAL EXAMINATION: GENERAL: The patient is a well-developed and well-nourished male, in moderate respiratory distress. HEENT: Eyes, pupils are equal and responsive to light and accommodation. Extraocular movements are intact. NECK: Supple without lymphadenopathy. CHEST: nasal canula; Coarse breath sounds bilaterally with expiratory wheezes. Otherwise, without crackles. ABDOMINAL: Soft, nontender, and nondistended. Positive bowel sounds. No evidence of hepatosplenomegaly. Currently, no rebound or guarding noted. CARDIOVASCULAR: Tachycardic. Regular rhythm. S1 and S2 are normal without murmurs, rubs, or gallops. GENITOURINARY: Deferred. NEUROLOGICAL: Cranial nerves II to XII are grossly intact without focal deficits. EXTREMITIES: Negative for clubbing, cyanosis, or edema. Assessment/Plan Assessment/Plan ASSESSMENT: This is an 83-year-old male. 1. Dyspnea. 2. Respiratory distress. 3. Diabetes type 2. 4. Parkinson disease. 5. Hypercholesterolemia. 6. Dilated cardiomyopathy. 7. Dysphagia. 8. Benign prostatic hypertrophy. 9. Left Ureteral stone/hydronephrosis TREATMENT: 1. Dyspnea/respiratory distress. A Pulmonary consultation has been obtained with Dr. Kathryn Lopez. The patient is currently extubated. ABX=Ceftriaxone. We will follow recommendations of Pulmonary. 2. Diabetes type 2. 3. Hypercholesterolemia. 4. Dilated cardiomyopathy. 5. Dysphagia. The patient is status post PEG placement. 6. Hypertensive heart disease. 7. Benign prostatic hypertrophy. 8. ID=DR. Page 9. Urology = Dr. Callejas; possible cystoscopy/ureteroscopy next week 10. See cardiology = Dr Santos clearance for cystoscopy Shukri Glover MD Jul 21, 2019 16:12
--- NOTE | 2019-07-21 19:38 | NUR ---
HAND-OFF: Report given to Loreta Bridges RN. Patient stable. Plan of care endorsed.
[2019-07-21] MEDS: Tamsulosin 0.4mg cap ORAL SCH (21:16)
[2019-07-22] MEDS: Albuterol/Ipratropium 3ml neb HHN SCH ×6 (03:21→23:46)
[2019-07-22 04:00] VITALS: BP 109/57
[2019-07-22] MEDS: NovoLOG Insulin Flexpen SUBQ SCH ×4 (06:00→18:00)
--- NOTE | 2019-07-22 07:28 | Urology Progress Note ---
Assessment/Plan Assessment/Plan: 1. Left-sided hydronephrosis, poss chronic. 2. Proteinuria. 3. Hematuria. 4. Pyuria. 5. Urinary retention. 6. BPH history. 7. Rule out neurogenic bladder. 8. Mild acute kidney injury, improved. 9. Left ureteral calculus. 10. Right renal calculi. 11. Cystitis. 12. Left inguinal hernia. monitor clinically maintain nixon hand irrigate PRN cath secured to pt's leg s/p abx monitor renal fxn flomax and proscar added will consider tx of stones once more medically stabilized currently no flank pain and normal Cr voiding trial at some point? ordered KUB, pending card cleared, d/w Dr. Santos will d/w pt's family Subjective Allergies: Coded Allergies: PENICILLINS (Verified Allergy, Unknown, 07/04/19) Subjective all noted, feels fair, no pain Objective Last 24 Hour Vital Signs Date Time Temp Pulse Resp B/P (MAP) Pulse Ox O2 Delivery O2 Flow Rate FiO2 07/22/19 04:00 98.0 75 17 109/57 (74) 97 07/22/19 04:00 78 07/22/19 03:21 74 18 100 Nasal Cannula 2.0 28 71 20 98 07/22/19 00:00 86 07/21/19 23:46 97.6 71 17 113/55 (74) 97 07/21/19 23:21 71 18 99 Nasal Cannula 2.0 28 73 20 98 07/21/19 21:00 Nasal Cannula 2.0 Nasal Cannula 2.0 07/21/19 20:00 78 07/21/19 20:00 97.8 77 15 99/59 (72) 95 07/21/19 19:07 75 18 97 Room Air 21 70 20 94 07/21/19 19:07 94 Room Air 07/21/19 16:00 97.0 75 20 102/47 (65) 100 07/21/19 16:00 75 07/21/19 12:05 101/49 07/21/19 12:00 69 07/21/19 12:00 97.3 76 20 101/49 (66) 99 07/21/19 11:59 68 20 99 Nasal Cannula 3.0 32 65 16 98 07/21/19 09:00 Nasal Cannula 2.0 Nasal Cannula 2.0 07/21/19 08:00 96.3 78 20 113/52 (72) 95 07/21/19 08:00 76 Intake and Output 07/21/19 07/22/19 19:00 07:00 Intake Total 720 ml Output Total 1000 ml 800 ml Balance -280 ml -800 ml Tube Feeding 720 ml Output Urine Total 1000 ml 800 ml # Voids 1 # Bowel Movements 1 1 Microbiology Date/Time Source Procedure Growth Status 07/11/19 12:00 Blood Blood Culture - Final NO GROWTH AFTER 5 DAYS Complete 07/04/19 10:15 Sputum Gram Stain - Final Complete 07/04/19 10:15 Sputum Culture - Final Nicolle Albicans Usual Respiratory Valery Complete 07/11/19 21:20 Urine,Clean Catch Urine Culture - Final NO GROWTH AFTER 48 HOURS Complete 07/04/19 00:43 Rectum - Final NO CARBAPENEM-RESISTANT ENTEROBACTERI... Complete Current Medications Medications (Trade) Dose Ordered Sig/Genoveva Route PRN Reason Start Time Stop Time Status Last Admin Dose Admin Acetaminophen (Tylenol) 650 mg Q6H PRN ORAL Mild Pain/Temp > 100.5 07/19/19 06:30 08/03/19 06:29 Albuterol/ Ipratropium (Albuterol/ Ipratropium) 3 ml Q4H PRN HHN Shortness of Breath 07/20/19 21:00 07/25/19 20:59 Albuterol/ Ipratropium (Albuterol/ Ipratropium) 3 ml Q4HRT HHN 07/19/19 07:00 07/23/19 17:25 07/22/19 03:21 Dextrose (Dextrose 50%) 25 ml Q30M PRN IV Hypoglycemia 07/19/19 06:30 08/11/19 11:59 Dextrose (Dextrose 50%) 50 ml Q30M PRN IV Hypoglycemia 07/19/19 06:30 08/11/19 11:59 Finasteride (Proscar) 5 mg DAILY ORAL 07/19/19 09:00 08/13/19 08:59 07/21/19 09:16 Hydralazine HCl (Apresoline) 10 mg Q4H PRN IV bp over 160 syst 07/19/19 06:30 08/05/19 06:29 Insulin Aspart (NovoLOG) Q6HR SUBQ 07/19/19 12:00 08/11/19 16:29 07/21/19 12:05 Nitroglycerin (Ntg) 1 patch Q24H TDERMAL 07/19/19 12:30 08/05/19 12:29 07/20/19 13:21 Pantoprazole (Protonix) 40 mg Q12HR IV 07/19/19 09:00 08/04/19 11:14 07/21/19 21:16 Potassium Chloride (K-Dur) 20 meq DAILY GT 07/22/19 09:00 08/21/19 08:59 Promethazine HCl/ Codeine (Phenergan with Codeine) 5 ml Q4H PRN ORAL For Cough 07/19/19 06:30 08/03/19 06:29 Tamsulosin HCl (Flomax) 0.4 mg BEDTIME ORAL 07/19/19 21:00 08/12/19 20:59 07/21/19 21:16 Height (Feet): 5 Height (Inches): 8.00 Weight (Pounds): 179 Objective exam stable nixon indwelling urine yellow/kristen CT A/P (07/12) noted Clayton Callejas MD Jul 22, 2019 07:28
--- NOTE | 2019-07-22 07:31 | NUR ---
NURSE NOTES: Patient stable AOx2 no s/sx of distress. RR even and unlabored on 2L NC. Gtube feeding held for xray of abd. Juan draining well to gravity. Side rails upx2, call light within reach, bed low and locked.
[2019-07-22 07:57] LABS: BASOPHILS % (AUTO) 0.9 % (0.0-2.0); EOSINOPHILS % (AUTO) 1.8 % (0.0-3.0); HEMOGLOBIN 9.2 G/DL (14.2-18.0); LYMPHOCYTES % (AUTO) 12.4 % (20.0-45.0); MEAN CORPUSCULAR VOLUME 86 FL (80-99); MONOCYTES % (AUTO) 7.6 % (1.0-10.0); NEUTROPHILS % (AUTO) 77.3 % (45.0-75.0); PLATELET COUNT 179 K/UL (150-450); RED BLOOD COUNT 3.27 M/UL (4.70-6.10); RED CELL DISTRIBUTION WIDTH 16.1 % (11.6-14.8); WHITE BLOOD COUNT 8.2 K/UL (4.8-10.8)
[2019-07-22 08:00] VITALS: BP 115/50
[2019-07-22 08:23] LABS: ANION GAP 5 mmol/L (5-15); BLOOD UREA NITROGEN 26 mg/dL (7-18); CALCIUM 8.1 MG/DL (8.5-10.1); CARBON DIOXIDE 31 MMOL/L (21-32); CHLORIDE 103 MMOL/L (98-107); CREATININE 0.8 MG/DL (0.55-1.30); POTASSIUM 4.4 MMOL/L (3.5-5.1); SODIUM 139 MMOL/L (136-145)
[2019-07-22] MEDS: Pantoprazole Inj IV SCH ×2 (09:29→20:29)
--- NOTE | 2019-07-22 10:04 | Pulmonology Progress Note ---
Assessment/Plan Assessment/Plan ASSESSMENT shock s/p bradycardic arrest with successful resuscitation Acute hypoxemic respiratory failure requiring intubation, s/p extubation 07/11 Elevated troponin/NSTEMI likely due to cardiac arrest Sepsis Probable UTI Aspiration pneumonia versus pneumonitis Left hydronephrosis with obstructive uropathy Acute kidney injury-resolved Dehydration Hyponatremia Dysphagia feeding by G-tube Diabetes mellitus Parkinson disease Anemia PLAN OF CARE tele s/p extubation 07/11 O2 titrate to keep sat above 90%, HHN CXR 07/13 - > Improving pulmonary venous congestion with unchanged small left pleural effusion and slight worsening of left basilar infiltrate, indeterminate between atelectasis and pneumonia Venous Duplex negative VQ scan with low prob of PE abx as per ID monitor h/d status - improved; off any AV blocking agents cardio follows ECHO with pEF 60% and RVSP of 32 off stress dose of steroids IVF, monitor renal parameters, correct lytes prn calcium WNL if corrected for low albumin / as per nephro explanation renal US+mod L hydro CT A/P Moderate left hydroureteronephrosis secondary to a 1.5 cm left mid to distal ureter stone. Multiple nonobstructive stones within the right kidney. Thickening of the wall the urinary bladder consistent with cystitis. Juan catheter in good position. 10 x 7 cm left inguinal hernia containing bowel. No evidence of obstruction. Correlate clinically. Arterial vascular disease Anasarca. Trace left pleural effusion. Bilateral posterior basal atelectasis. Cardiomegaly. Degenerative changes of the spine as described above. urologist and nephro follows GTF, asp precautions BS management with SSI case discussed and evaluated by supervising physician Subjective Allergies: Coded Allergies: PENICILLINS (Verified Allergy, Unknown, 07/04/19) Subjective extubated 07/11, mild leukocytosis resolved pulse ox stable on o2 via NC Objective Last 24 Hour Vital Signs Date Time Temp Pulse Resp B/P (MAP) Pulse Ox O2 Delivery O2 Flow Rate FiO2 07/22/19 08:00 97.7 75 20 115/50 (71) 99 07/22/19 07:39 68 18 99 Nasal Cannula 2.0 28 65 18 95 07/22/19 07:39 95 Nasal Cannula 2.0 28 07/22/19 04:00 98.0 75 17 109/57 (74) 97 07/22/19 04:00 78 07/22/19 03:21 74 18 100 Nasal Cannula 2.0 28 71 20 98 07/22/19 00:00 86 07/21/19 23:46 97.6 71 17 113/55 (74) 97 07/21/19 23:21 71 18 99 Nasal Cannula 2.0 28 73 20 98 07/21/19 21:00 Nasal Cannula 2.0 Nasal Cannula 2.0 07/21/19 20:00 78 07/21/19 20:00 97.8 77 15 99/59 (72) 95 07/21/19 19:07 75 18 97 Room Air 21 70 20 94 07/21/19 19:07 94 Room Air 07/21/19 16:00 97.0 75 20 102/47 (65) 100 07/21/19 16:00 75 07/21/19 12:05 101/49 07/21/19 12:00 69 07/21/19 12:00 97.3 76 20 101/49 (66) 99 07/21/19 11:59 68 20 99 Nasal Cannula 3.0 32 65 16 98 Intake and Output 07/21/19 07/22/19 19:00 07:00 Intake Total 720 ml Output Total 1000 ml 800 ml Balance -280 ml -800 ml Tube Feeding 720 ml Output Urine Total 1000 ml 800 ml # Voids 1 # Bowel Movements 1 1 Objective General Appearance: no acute distress HEENT: normocephalic, atraumatic, anicteric Respiratory/Chest: lungs clear, no accessory muscle use Cardiovascular: normal rate Abdomen: normal bowel sounds, non distended, G tube Extremities: no edema, pedal pulses normal Neurologic/Psychiatric: abnormal gait Musculoskeletal: atrophy Laboratory Tests 07/22/19 06:16: White Blood Count 8.2, Red Blood Count 3.27L, Hemoglobin 9.2L, Hematocrit 28.0L , Mean Corpuscular Volume 86, Mean Corpuscular Hemoglobin 28.2, Mean Corpuscular Hemoglobin Concent 32.9, Red Cell Distribution Width 16.1H, Platelet Count 179, Mean Platelet Volume 8.9, Neutrophils (%) (Auto) 77.3H, Lymphocytes (%) (Auto) 12.4L, Monocytes (%) (Auto) 7.6, Eosinophils (%) (Auto) 1.8, Basophils (%) (Auto) 0.9, Sodium Level 139, Potassium Level 4.4, Chloride Level 103, Carbon Dioxide Level 31, Anion Gap 5, Blood Urea Nitrogen 26H, Creatinine 0.8, Estimat Glomerular Filtration Rate > 60, Glucose Level 141H, Calcium Level 8.1L Current Medications Medications (Trade) Dose Ordered Sig/Genoveva Route PRN Reason Start Time Stop Time Status Last Admin Dose Admin Acetaminophen (Tylenol) 650 mg Q6H PRN ORAL Mild Pain/Temp > 100.5 07/19/19 06:30 08/03/19 06:29 Albuterol/ Ipratropium (Albuterol/ Ipratropium) 3 ml Q4H PRN HHN Shortness of Breath 07/20/19 21:00 07/25/19 20:59 Albuterol/ Ipratropium (Albuterol/ Ipratropium) 3 ml Q4HRT HHN 07/19/19 07:00 07/23/19 17:25 07/22/19 07:29 Dextrose (Dextrose 50%) 25 ml Q30M PRN IV Hypoglycemia 07/19/19 06:30 08/11/19 11:59 Dextrose (Dextrose 50%) 50 ml Q30M PRN IV Hypoglycemia 07/19/19 06:30 08/11/19 11:59 Finasteride (Proscar) 5 mg DAILY ORAL 07/19/19 09:00 08/13/19 08:59 07/22/19 09:29 Hydralazine HCl (Apresoline) 10 mg Q4H PRN IV bp over 160 syst 07/19/19 06:30 08/05/19 06:29 Insulin Aspart (NovoLOG) Q6HR SUBQ 07/19/19 12:00 08/11/19 16:29 07/21/19 12:05 Nitroglycerin (Ntg) 1 patch Q24H TDERMAL 07/19/19 12:30 08/05/19 12:29 07/20/19 13:21 Pantoprazole (Protonix) 40 mg Q12HR IV 07/19/19 09:00 08/04/19 11:14 07/22/19 09:29 Potassium Chloride (K-Dur) 20 meq DAILY GT 07/22/19 09:00 08/21/19 08:59 07/22/19 09:30 Promethazine HCl/ Codeine (Phenergan with Codeine) 5 ml Q4H PRN ORAL For Cough 07/19/19 06:30 08/03/19 06:29 Tamsulosin HCl (Flomax) 0.4 mg BEDTIME ORAL 07/19/19 21:00 08/12/19 20:59 07/21/19 21:16 Valerie Balderrama BLENDER / COOK Jul 22, 2019 10:04
--- NOTE | 2019-07-22 11:24 | Diagnostic Imaging Report ---
Indication: Shortness of breath Technique: One view of the chest Comparison: 07/20/2019 Findings: History is suboptimal. There is bilateral interstitial prominence again demonstrated, unchanged. Atelectatic changes are again demonstrated in both lung bases. The heart is borderline enlarged. Findings are unchanged Impression: Unchanged, over one day, findings as above.
--- NOTE | 2019-07-22 11:39 | Infectious Diseases Prog Note ---
Assessment/Plan Assessment/Plan Assessment: Shock, SP s/p cardiac arrest 07/05 Obstruct uropathy, L hydrouretenephrosis -07/12 CT abd/p: -07/12 CT abd/p: Moderate left hydroureteronephrosis secondary to a 1.5 cm left mid to distal ureter stone. Multiple nonobstructive stones within the right kidney. Thickening of the wall the urinary bladder consistent with cystitis. Juan catheter in good position. 10 x 7 cm left inguinal hernia containing bowel. No evidence of obstruction.Trace left pleural effusion. Bilateral posterior basal atelectasis. Sepsis, Sp Probable UTI, sp rx Acute hypoxic respiratory failure, intubated 07/05; extubated 07/11 Aspiration pneumonia vs pneumonitis Gram positive bacteremia- contaminant -07/18 CXR: Mild pulmonary vascular congestion may be present. Correlate clinically.Basal atelectasis versus infiltrate. No change -07/15 CXR:Infiltrate and/or pleural effusion suspected at the left lung base. Mild pulmonary vascular congestion not excluded. Correlate clinically. -07/13 CXR: Improving pulmonary venous congestion with unchanged small left pleural effusion and slight worsening of left basilar infiltrate, indeterminate between atelectasis and pneumonia -07/11 u/a wbc 2-4, nit neg, leuk +3; ucx Neg Bcx Neg -07/06 Bcx Neg -07/05 CXR:Mild CHF -u/a wbc 5-10, nit neg, leuk +2; ucx Neg -Bcx 06/08 dipteriods -sp cx usual resp rupert -CXR: No acute process -influenza sc neg -v. duplex: no DVT -V/q scan:Findings are deemed low probability for pulmonary embolus Fever; low grade, recurrent- SP Mild leukocytosis,recurrent- SP CARA;SP Dm2 dysphagia s/p GT hx of PNA parkinson disease HTN bed bound NH resident Plan: -Continue to monitor off abx -07/17 SP Ceftriaxone #3 -210 SP Flagyl # 11, Cefepime #12 -/4 SP IV Vancomycin #5 -07/04 SP Levaquin x1 -f/u cx -Monitor CBC/CMP, temperatures -aspiration precautions -GT care -Cards, nephro f/u -Cdiff if diarrhea -uro f/u Thank you for this consultation. Will continue to follow along with you. Subjective Allergies: Coded Allergies: PENICILLINS (Verified Allergy, Unknown, 07/04/19) Subjective afebrile no leukocytosis off abx Objective Vital Signs Last 24 Hour Vital Signs Date Time Temp Pulse Resp B/P (MAP) Pulse Ox O2 Delivery O2 Flow Rate FiO2 07/22/19 08:00 68 07/22/19 08:00 97.7 75 20 115/50 (71) 99 07/22/19 07:39 68 18 99 Nasal Cannula 2.0 28 65 18 95 07/22/19 07:39 95 Nasal Cannula 2.0 28 07/22/19 04:00 98.0 75 17 109/57 (74) 97 07/22/19 04:00 78 07/22/19 03:21 74 18 100 Nasal Cannula 2.0 28 71 20 98 07/22/19 00:00 86 07/21/19 23:46 97.6 71 17 113/55 (74) 97 07/21/19 23:21 71 18 99 Nasal Cannula 2.0 28 73 20 98 07/21/19 21:00 Nasal Cannula 2.0 Nasal Cannula 2.0 07/21/19 20:00 78 07/21/19 20:00 97.8 77 15 99/59 (72) 95 07/21/19 19:07 75 18 97 Room Air 21 70 20 94 07/21/19 19:07 94 Room Air 07/21/19 16:00 97.0 75 20 102/47 (65) 100 07/21/19 16:00 75 07/21/19 12:05 101/49 07/21/19 12:00 69 07/21/19 12:00 97.3 76 20 101/49 (66) 99 07/21/19 11:59 68 20 99 Nasal Cannula 3.0 32 65 16 98 Height (Feet): 5 Height (Inches): 8.00 Weight (Pounds): 179 Objective General Appearance: no distress HEENT: normocephalic, atraumatic Neck: non-tender, supple Respiratory/Chest: lungs clear Cardiovascular/Chest: normal rate Abdomen: normal bowel sounds, non tender Extremities: normal range of motion Laboratory Tests Test 07/22/19 06:16 White Blood Count 8.2 K/UL (4.8-10.8) Red Blood Count 3.27 M/UL (4.70-6.10) L Hemoglobin 9.2 G/DL (14.2-18.0) L Hematocrit 28.0 % (42.0-52.0) L Mean Corpuscular Volume 86 FL (80-99) Mean Corpuscular Hemoglobin 28.2 PG (27.0-31.0) Mean Corpuscular Hemoglobin Concent 32.9 G/DL (32.0-36.0) Red Cell Distribution Width 16.1 % (11.6-14.8) H Platelet Count 179 K/UL (150-450) Mean Platelet Volume 8.9 FL (6.5-10.1) Neutrophils (%) (Auto) 77.3 % (45.0-75.0) H Lymphocytes (%) (Auto) 12.4 % (20.0-45.0) L Monocytes (%) (Auto) 7.6 % (1.0-10.0) Eosinophils (%) (Auto) 1.8 % (0.0-3.0) Basophils (%) (Auto) 0.9 % (0.0-2.0) Sodium Level 139 MMOL/L (136-145) Potassium Level 4.4 MMOL/L (3.5-5.1) Chloride Level 103 MMOL/L (98-107) Carbon Dioxide Level 31 MMOL/L (21-32) Anion Gap 5 mmol/L (5-15) Blood Urea Nitrogen 26 mg/dL (7-18) H Creatinine 0.8 MG/DL (0.55-1.30) Estimat Glomerular Filtration Rate > 60 mL/min (>60) Glucose Level 141 MG/DL (74-106) H Calcium Level 8.1 MG/DL (8.5-10.1) L Current Medications Medications (Trade) Dose Ordered Sig/Genoveva Route PRN Reason Start Time Stop Time Status Last Admin Dose Admin Acetaminophen (Tylenol) 650 mg Q6H PRN ORAL Mild Pain/Temp > 100.5 07/19/19 06:30 08/03/19 06:29 Albuterol/ Ipratropium (Albuterol/ Ipratropium) 3 ml Q4H PRN HHN Shortness of Breath 07/20/19 21:00 07/25/19 20:59 Albuterol/ Ipratropium (Albuterol/ Ipratropium) 3 ml Q4HRT HHN 07/22/19 10:30 07/26/19 10:29 Dextrose (Dextrose 50%) 25 ml Q30M PRN IV Hypoglycemia 07/19/19 06:30 08/11/19 11:59 Dextrose (Dextrose 50%) 50 ml Q30M PRN IV Hypoglycemia 07/19/19 06:30 08/11/19 11:59 Finasteride (Proscar) 5 mg DAILY ORAL 07/19/19 09:00 08/13/19 08:59 07/22/19 09:29 Hydralazine HCl (Apresoline) 10 mg Q4H PRN IV bp over 160 syst 07/19/19 06:30 08/05/19 06:29 Insulin Aspart (NovoLOG) Q6HR SUBQ 07/19/19 12:00 08/11/19 16:29 07/21/19 12:05 Nitroglycerin (Ntg) 1 patch Q24H TDERMAL 07/19/19 12:30 08/05/19 12:29 07/20/19 13:21 Pantoprazole (Protonix) 40 mg Q12HR IV 07/19/19 09:00 08/04/19 11:14 07/22/19 09:29 Potassium Chloride (K-Dur) 20 meq DAILY GT 07/22/19 09:00 08/21/19 08:59 07/22/19 09:30 Promethazine HCl/ Codeine (Phenergan with Codeine) 5 ml Q4H PRN ORAL For Cough 07/19/19 06:30 08/03/19 06:29 Tamsulosin HCl (Flomax) 0.4 mg BEDTIME ORAL 07/19/19 21:00 08/12/19 20:59 07/21/19 21:16 Mirian Page M.D. Jul 22, 2019 11:39
--- NOTE | 2019-07-22 11:50 | Nephrology Progress Note ---
Assessment/Plan Problem List: (1) RIA (acute kidney injury) (2) Cardiac arrest with successful resuscitation (3) Respiratory failure with hypoxia (4) Hydronephrosis Assessment patient have Ria due to Low BP and s/p arrest elevated liver enzymes for same reason others: 1. Acute hypoxemic respiratory failure. 2. Hypotension possible sepsis. 3. Diabetes type 2. 4. Parkinson disease. 5. Hypercholesterolemia. 6. EjFx 65% reported 7. Dysphagia. 8. Benign prostatic hypertrophy. Plan s/p Cr 1.6 now wnl Extubated 07/11 Nitro- Phos , K , Mag supplement as needed keep BP above 100 syst Pulm support monitor renal parameters discussed with RN VALENTINA: Moderate left hydronephrosis. Juan catheter. Echogenic right kidney. Suspected medical renal disease. CXR 07/15 IMPRESSION: Infiltrate and/or pleural effusion suspected at the left lung base. Mild pulmonary vascular congestion not excluded. Correlate clinically. Subjective ROS Limited/Unobtainable: No Constitutional: Reports: malaise, weakness Objective Objective Last 24 Hour Vital Signs Date Time Temp Pulse Resp B/P (MAP) Pulse Ox O2 Delivery O2 Flow Rate FiO2 07/22/19 08:00 68 07/22/19 08:00 97.7 75 20 115/50 (71) 99 07/22/19 07:39 68 18 99 Nasal Cannula 2.0 28 65 18 95 07/22/19 07:39 95 Nasal Cannula 2.0 28 07/22/19 04:00 98.0 75 17 109/57 (74) 97 07/22/19 04:00 78 07/22/19 03:21 74 18 100 Nasal Cannula 2.0 28 71 20 98 07/22/19 00:00 86 07/21/19 23:46 97.6 71 17 113/55 (74) 97 07/21/19 23:21 71 18 99 Nasal Cannula 2.0 28 73 20 98 07/21/19 21:00 Nasal Cannula 2.0 Nasal Cannula 2.0 07/21/19 20:00 78 07/21/19 20:00 97.8 77 15 99/59 (72) 95 07/21/19 19:07 75 18 97 Room Air 21 70 20 94 07/21/19 19:07 94 Room Air 07/21/19 16:00 97.0 75 20 102/47 (65) 100 07/21/19 16:00 75 07/21/19 12:05 101/49 07/21/19 12:00 69 07/21/19 12:00 97.3 76 20 101/49 (66) 99 07/21/19 11:59 68 20 99 Nasal Cannula 3.0 32 65 16 98 Intake and Output 07/21/19 07/22/19 19:00 07:00 Intake Total 720 ml Output Total 1000 ml 800 ml Balance -280 ml -800 ml Tube Feeding 720 ml Output Urine Total 1000 ml 800 ml # Voids 1 # Bowel Movements 1 1 Laboratory Tests 07/22/19 06:16: White Blood Count 8.2, Red Blood Count 3.27L, Hemoglobin 9.2L, Hematocrit 28.0L , Mean Corpuscular Volume 86, Mean Corpuscular Hemoglobin 28.2, Mean Corpuscular Hemoglobin Concent 32.9, Red Cell Distribution Width 16.1H, Platelet Count 179, Mean Platelet Volume 8.9, Neutrophils (%) (Auto) 77.3H, Lymphocytes (%) (Auto) 12.4L, Monocytes (%) (Auto) 7.6, Eosinophils (%) (Auto) 1.8, Basophils (%) (Auto) 0.9, Sodium Level 139, Potassium Level 4.4, Chloride Level 103, Carbon Dioxide Level 31, Anion Gap 5, Blood Urea Nitrogen 26H, Creatinine 0.8, Estimat Glomerular Filtration Rate > 60, Glucose Level 141H, Calcium Level 8.1L Height (Feet): 5 Height (Inches): 8.00 Weight (Pounds): 179 General Appearance: no apparent distress, lethargic Neck: limited range of motion Cardiovascular: normal rate Respiratory/Chest: decreased breath sounds Abdomen: soft Objective no change Oskar Mohr MD Jul 22, 2019 11:50
[2019-07-22 12:00] VITALS: BP 101/56
--- NOTE | 2019-07-22 12:29 | NUR ---
NURSE NOTES: Patient ST with concern for A fib due to labile HR ranging from 107-148. Dr. Mahoney notified.
[2019-07-22] MEDS: Nitroglycerin Patch 0.4mg TDERMAL SCH (12:30)
--- NOTE | 2019-07-22 12:31 | Diagnostic Imaging Report ---
Indication: Abdominal pain Technique: One view of the chest Comparison: none Findings: Bowel gas pattern is unremarkable. There is a gastrostomy. No masses or unusual calcifications. Interstitial disease is seen at the visualized lung bases Impression: No acute abdominal process
--- NOTE | 2019-07-22 12:57 | Cardiac Electrophysiology PN ---
Assessment/Plan Assessment/Plan 1. Status post bradycardic arrest off any sinus node or AV destinee blocking agents. 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 Likely precipitated by respiratory failure The first two troponins on admission were negative. 5 follow up troponins were mildly elevated likely due to arrest No further critical hillary episode on tele. But now again going to atrial fib with RVR. Will get ECG. Risky to add AVN blcoker in view of hx of hillary arrest. May need pacer to allow us adding AVN fredrick. 2. NSTEMI. Due to arrest 3. Respiratory failure. D. Dimer positive. VQ scan pre code was low probability. Extubated 07/11/19 3. Hypotension. Improved with IV fluid 5. Dehydration and hyperatremia, resolved 6. S/P PEG 7. Diabetes. 8. Benign prostatic hypertrophy.FU Dr. Callejas. S/P CT abdomen that showed Left hydronephrosis. Stable from Cardiac perspective to proceed with Cystoscopy, Ureteroscopy and Laser lithotripsy at Moderate risk Alert with no CP. EF 65% 9. Full code. ACR[facility] RN and Dr. Callejas Subjective Subjective PEG feeding held for abdominal X Ray. Developed atrial fib with RVR 148.Evaluated for Cystoscopy for Left hydronephrosis and stones by Dr Callejas Objective Last 24 Hour Vital Signs Date Time Temp Pulse Resp B/P (MAP) Pulse Ox O2 Delivery O2 Flow Rate FiO2 07/22/19 11:51 109 18 98 Nasal Cannula 2.0 78 18 95 07/22/19 09:00 Nasal Cannula 2.0 Nasal Cannula 2.0 07/22/19 08:00 68 07/22/19 08:00 97.7 75 20 115/50 (71) 99 07/22/19 07:39 68 18 99 Nasal Cannula 2.0 28 65 18 95 07/22/19 07:39 95 Nasal Cannula 2.0 28 07/22/19 04:00 98.0 75 17 109/57 (74) 97 07/22/19 04:00 78 07/22/19 03:21 74 18 100 Nasal Cannula 2.0 28 71 20 98 07/22/19 00:00 86 07/21/19 23:46 97.6 71 17 113/55 (74) 97 07/21/19 23:21 71 18 99 Nasal Cannula 2.0 28 73 20 98 07/21/19 21:00 Nasal Cannula 2.0 Nasal Cannula 2.0 07/21/19 20:00 78 07/21/19 20:00 97.8 77 15 99/59 (72) 95 07/21/19 19:07 75 18 97 Room Air 21 70 20 94 07/21/19 19:07 94 Room Air 07/21/19 16:00 97.0 75 20 102/47 (65) 100 07/21/19 16:00 75 Intake and Output 07/21/19 07/22/19 19:00 07:00 Intake Total 720 ml Output Total 1000 ml 800 ml Balance -280 ml -800 ml Tube Feeding 720 ml Output Urine Total 1000 ml 800 ml # Voids 1 # Bowel Movements 1 1 Laboratory Tests Test 07/22/19 06:16 White Blood Count 8.2 K/UL (4.8-10.8) Red Blood Count 3.27 M/UL (4.70-6.10) L Hemoglobin 9.2 G/DL (14.2-18.0) L Hematocrit 28.0 % (42.0-52.0) L Mean Corpuscular Volume 86 FL (80-99) Mean Corpuscular Hemoglobin 28.2 PG (27.0-31.0) Mean Corpuscular Hemoglobin Concent 32.9 G/DL (32.0-36.0) Red Cell Distribution Width 16.1 % (11.6-14.8) H Platelet Count 179 K/UL (150-450) Mean Platelet Volume 8.9 FL (6.5-10.1) Neutrophils (%) (Auto) 77.3 % (45.0-75.0) H Lymphocytes (%) (Auto) 12.4 % (20.0-45.0) L Monocytes (%) (Auto) 7.6 % (1.0-10.0) Eosinophils (%) (Auto) 1.8 % (0.0-3.0) Basophils (%) (Auto) 0.9 % (0.0-2.0) Sodium Level 139 MMOL/L (136-145) Potassium Level 4.4 MMOL/L (3.5-5.1) Chloride Level 103 MMOL/L (98-107) Carbon Dioxide Level 31 MMOL/L (21-32) Anion Gap 5 mmol/L (5-15) Blood Urea Nitrogen 26 mg/dL (7-18) H Creatinine 0.8 MG/DL (0.55-1.30) Estimat Glomerular Filtration Rate > 60 mL/min (>60) Glucose Level 141 MG/DL (74-106) H Calcium Level 8.1 MG/DL (8.5-10.1) L Objective HEAD AND NECK: Mild JVD. LUNGS: Decreased breath sounds. CARDIOVASCULAR: IRRR tachy. No G/R/M ABDOMEN: Status post G-tube. EXTREMITIES: No pitting edema. Enio Santos MD Jul 22, 2019 12:57
--- NOTE | 2019-07-22 13:20 | NUR ---
NURSE NOTES: 12 lead ECG performed and patient found to be in Afib with RVR. Dr. Mahoney at bedside speaking with daughter regarding inability to medicate rhythm due to risk of cardiac arrest and need for pacemaker. Per daughter, is also the decision maker for him and needs to be consulted.
--- NOTE | 2019-07-22 14:30 | NUR ---
NURSE NOTES: at bedside. Dr. Mahoney discussing risks and benefits of pacemaker implantation. Consent signed.
[2019-07-22 16:00] VITALS: BP 98/55
--- NOTE | 2019-07-22 16:39 | NUR ---
NURSE NOTES: Patient still NPO for possible pacemaker placement tomorrow. Dr. Woods contacted for fluid order and received. Per MD no dextrose in fluids given that patient has history of DM.
--- NOTE | 2019-07-22 17:05 | NUR ---
CASE MANAGEMENT:REVIEW 07/22/19 SI: SEPSIS. RESP FAILURE. S/P CARDIAC ARREST 97.9 127 20 98/55 94% ON 2L/NC BUN 26 BG 141 CA+ 8.1 H/H-9.2/28.0 IS: K-DUR GT QD FLOMAX PO QHS NTG PATCH Q24 PROSCAR PO QD IV PROTONIX Q12 ALBUTEROL HHN Q4HRS RTC : NOW ON TELEMETRY DCP: FROM [facility]: CONSENT FOR PERMANENT PACEMAKER ABD X-RAY CHEST X-RAY
--- NOTE | 2019-07-22 17:32 | Internal Med Progress Note ---
Subjective Date of Service: Jul 22, 2019 Physician Name Shukri Glover Attending Physician Rayshawn Woods MD Current Medications Medications (Trade) Dose Ordered Sig/Genoveva Route PRN Reason Start Time Stop Time Status Last Admin Dose Admin Acetaminophen (Tylenol) 650 mg Q6H PRN ORAL Mild Pain/Temp > 100.5 07/19/19 06:30 08/03/19 06:29 Albuterol/ Ipratropium (Albuterol/ Ipratropium) 3 ml Q4H PRN HHN Shortness of Breath 07/20/19 21:00 07/25/19 20:59 Albuterol/ Ipratropium (Albuterol/ Ipratropium) 3 ml Q4HRT HHN 07/22/19 10:30 07/26/19 10:29 07/22/19 17:06 Dextrose (Dextrose 50%) 25 ml Q30M PRN IV Hypoglycemia 07/19/19 06:30 08/11/19 11:59 Dextrose (Dextrose 50%) 50 ml Q30M PRN IV Hypoglycemia 07/19/19 06:30 08/11/19 11:59 Finasteride (Proscar) 5 mg DAILY ORAL 07/19/19 09:00 08/13/19 08:59 07/22/19 09:29 Hydralazine HCl (Apresoline) 10 mg Q4H PRN IV bp over 160 syst 07/19/19 06:30 08/05/19 06:29 Insulin Aspart (NovoLOG) Q6HR SUBQ 07/19/19 12:00 08/11/19 16:29 07/21/19 12:05 Nitroglycerin (Ntg) 1 patch Q24H TDERMAL 07/19/19 12:30 08/05/19 12:29 07/20/19 13:21 Pantoprazole (Protonix) 40 mg Q12HR IV 07/19/19 09:00 08/04/19 11:14 07/22/19 09:29 Potassium Chloride (K-Dur) 20 meq DAILY GT 07/22/19 09:00 08/21/19 08:59 07/22/19 09:30 Promethazine HCl/ Codeine (Phenergan with Codeine) 5 ml Q4H PRN ORAL For Cough 07/19/19 06:30 08/03/19 06:29 Sodium Chloride 1,000 ml @ 75 mls/hr [id number] IV 07/22/19 16:41 08/21/19 16:40 Tamsulosin HCl (Flomax) 0.4 mg BEDTIME ORAL 07/19/19 21:00 08/12/19 20:59 07/21/19 21:16 Allergies: Coded Allergies: PENICILLINS (Verified Allergy, Unknown, 07/04/19) ROS Limited/Unobtainable: Yes Subjective 83 YO M admitted with dyspnea, now respiratory failure. Cover for Int Med-Dr Woods. Extubated 07/11/19. Scheduled for cystoscopy/ureteroscopy 07/24/19 Objective Last Vital Signs Date Time Temp Pulse Resp B/P (MAP) Pulse Ox O2 Delivery O2 Flow Rate FiO2 07/22/19 17:16 105 18 100 Nasal Cannula 2.0 28 90 18 96 07/22/19 16:00 97.9 98/55 (69) Laboratory Tests Test 07/22/19 06:16 White Blood Count 8.2 K/UL (4.8-10.8) Red Blood Count 3.27 M/UL (4.70-6.10) L Hemoglobin 9.2 G/DL (14.2-18.0) L Hematocrit 28.0 % (42.0-52.0) L Mean Corpuscular Volume 86 FL (80-99) Mean Corpuscular Hemoglobin 28.2 PG (27.0-31.0) Mean Corpuscular Hemoglobin Concent 32.9 G/DL (32.0-36.0) Red Cell Distribution Width 16.1 % (11.6-14.8) H Platelet Count 179 K/UL (150-450) Mean Platelet Volume 8.9 FL (6.5-10.1) Neutrophils (%) (Auto) 77.3 % (45.0-75.0) H Lymphocytes (%) (Auto) 12.4 % (20.0-45.0) L Monocytes (%) (Auto) 7.6 % (1.0-10.0) Eosinophils (%) (Auto) 1.8 % (0.0-3.0) Basophils (%) (Auto) 0.9 % (0.0-2.0) Sodium Level 139 MMOL/L (136-145) Potassium Level 4.4 MMOL/L (3.5-5.1) Chloride Level 103 MMOL/L (98-107) Carbon Dioxide Level 31 MMOL/L (21-32) Anion Gap 5 mmol/L (5-15) Blood Urea Nitrogen 26 mg/dL (7-18) H Creatinine 0.8 MG/DL (0.55-1.30) Estimat Glomerular Filtration Rate > 60 mL/min (>60) Glucose Level 141 MG/DL (74-106) H Calcium Level 8.1 MG/DL (8.5-10.1) L Intake and Output 07/21/19 07/22/19 19:00 07:00 Intake Total 720 ml Output Total 1000 ml 800 ml Balance -280 ml -800 ml Tube Feeding 720 ml Output Urine Total 1000 ml 800 ml # Voids 1 # Bowel Movements 1 1 Objective PHYSICAL EXAMINATION: GENERAL: The patient is a well-developed and well-nourished male, in moderate respiratory distress. HEENT: Eyes, pupils are equal and responsive to light and accommodation. Extraocular movements are intact. NECK: Supple without lymphadenopathy. CHEST: nasal canula; Coarse breath sounds bilaterally with expiratory wheezes. Otherwise, without crackles. ABDOMINAL: Soft, nontender, and nondistended. Positive bowel sounds. No evidence of hepatosplenomegaly. Currently, no rebound or guarding noted. CARDIOVASCULAR: Tachycardic. Regular rhythm. S1 and S2 are normal without murmurs, rubs, or gallops. GENITOURINARY: Deferred. NEUROLOGICAL: Cranial nerves II to XII are grossly intact without focal deficits. EXTREMITIES: Negative for clubbing, cyanosis, or edema. Assessment/Plan Assessment/Plan ASSESSMENT: This is an 83-year-old male. 1. Dyspnea. 2. Respiratory distress. 3. Diabetes type 2. 4. Parkinson disease. 5. Hypercholesterolemia. 6. Dilated cardiomyopathy. 7. Dysphagia. 8. Benign prostatic hypertrophy. 9. Left Ureteral stone/hydronephrosis TREATMENT: 1. Dyspnea/respiratory distress. A Pulmonary consultation has been obtained with Dr. Kathryn Lopez. The patient is currently extubated. ABX=Ceftriaxone. We will follow recommendations of Pulmonary. 2. Diabetes type 2. 3. Hypercholesterolemia. 4. Dilated cardiomyopathy. 5. Dysphagia. The patient is status post PEG placement. 6. Hypertensive heart disease. 7. Benign prostatic hypertrophy. 8. ID=DR. Page 9. Urology = Dr. Callejas; Scheduled for cystoscopy/ureteroscopy 07/24/19 10. See cardiology = Dr Santos clearance for cystoscopy Shukri Glover MD Jul 22, 2019 17:32
--- NOTE | 2019-07-22 19:00 | NUR ---
NURSE NOTES: Received report from VIRGIL Manning. Patient is awake, lying in semi ryan's; resting comfortably. A/Ox2. Denies pain at this time. No signs of acute distress noted. Checked IV site and flushed with IV fluid as prescribed. No erythema, bleeding or infiltration noted. G tube patent with no residual volume. On nixon catheter draining well to gravity. Bed at lowest position, brakes on, siderailsx3. Call light within reach. Will continue to monitor.
--- NOTE | 2019-07-22 19:35 | NUR ---
HAND-OFF: Report given to Maricel Wakefield RN. Patient stable. Plan of care endorsed.
[2019-07-22 20:00] VITALS: BP 97/65
[2019-07-22] MEDS: Tamsulosin 0.4mg cap ORAL SCH (20:29)
--- NOTE | 2019-07-22 23:52 | NUR ---
HAND-OFF: Report given to VIRGIL Mcduffie. Plan of care endorsed.
[2019-07-23] VITALS: BP 132/77
--- NOTE | 2019-07-23 | NUR ---
NURSE NOTES: Report received from VIRGIL Connelly. Observed pt sleeping in the bed. No distress noted at this time. Afib on awake overnight monitor w/ HR of 101 noted. On 2L NC. Noted pt gurgling, suction done, noted white sputum. IV on R FA 22G, running NS at 75cc/hr. Bed in the lowest position. Side rails up x3. Will continue to monitor.
[2019-07-23] MEDS: Albuterol/Ipratropium 3ml neb HHN SCH ×6 (03:27→23:08)
[2019-07-23 04:00] VITALS: BP_SYST 113; BP_SYST 138; BP_DIAS 64; BP_DIAS 79
[2019-07-23] MEDS: NovoLOG Insulin Flexpen SUBQ SCH ×4 (05:37→18:00)
--- NOTE | 2019-07-23 07:29 | NUR ---
HAND-OFF: Report given to VIRGIL Higgins. No acute distress noted at this time.
[2019-07-23 07:32] LABS: EOSINOPHILS % (AUTO) 2.3 % (0.0-3.0); HEMATOCRIT 31.2 % (42.0-52.0); HEMOGLOBIN 10.3 G/DL (14.2-18.0); LYMPHOCYTES % (AUTO) 15.7 % (20.0-45.0); MEAN CORPUSCULAR VOLUME 86 FL (80-99); MONOCYTES % (AUTO) 8.3 % (1.0-10.0); NEUTROPHILS % (AUTO) 72.7 % (45.0-75.0); PLATELET COUNT 194 K/UL (150-450); RED BLOOD COUNT 3.63 M/UL (4.70-6.10); RED CELL DISTRIBUTION WIDTH 16.4 % (11.6-14.8)
--- NOTE | 2019-07-23 07:42 | NUR ---
NURSE NOTES: Patient stable AOx2 no s/sx of distress. RR even and unlabored on 2L NC. Gtube feeding held for possible pacemaker placement today. Juan draining well to gravity. Side rails upx2, call light within reach, bed low and locked.
[2019-07-23 08:00] VITALS: BP 130/66
[2019-07-23 08:08] LABS: ANION GAP 8 mmol/L (5-15); BLOOD UREA NITROGEN 27 mg/dL (7-18); CALCIUM 8.4 MG/DL (8.5-10.1); CARBON DIOXIDE 29 MMOL/L (21-32); CHLORIDE 106 MMOL/L (98-107); POTASSIUM 4.2 MMOL/L (3.5-5.1); SODIUM 143 MMOL/L (136-145)
[2019-07-23] MEDS: Pantoprazole Inj IV SCH ×2 (08:33→20:43)
--- NOTE | 2019-07-23 08:59 | Urology Progress Note ---
Assessment/Plan Assessment/Plan: 1. Left-sided hydronephrosis, poss chronic. 2. Proteinuria. 3. Hematuria. 4. Pyuria. 5. Urinary retention. 6. BPH history. 7. Rule out neurogenic bladder. 8. Mild acute kidney injury, improved. 9. Left ureteral calculus. 10. Right renal calculi. 11. Cystitis. 12. Left inguinal hernia. monitor clinically maintain nixon hand irrigate PRN cath secured to pt's leg s/p abx monitor renal fxn flomax and proscar added plan tx of stones, OR time for tomorrow morning plan tx of obst left-sided stone, poss right renal calc if feasible currently no flank pain and normal Cr voiding trial at some point? card cleared, d/w Dr. Santos d/w pt's d/w Dr. Glover NPO, consent Subjective Allergies: Coded Allergies: PENICILLINS (Verified Allergy, Unknown, 07/04/19) Subjective all noted, feels fair, no pain Objective Last 24 Hour Vital Signs Date Time Temp Pulse Resp B/P (MAP) Pulse Ox O2 Delivery O2 Flow Rate FiO2 07/23/19 08:07 Nasal Cannula 2.0 Nasal Cannula 2.0 07/23/19 08:00 96.8 80 19 130/66 (87) 98 07/23/19 07:41 96 18 99 Nasal Cannula 2.0 28 94 18 99 07/23/19 07:41 96 Nasal Cannula 2.0 28 07/23/19 04:00 85 07/23/19 04:00 97.0 87 20 113/64 (80) 97 07/23/19 03:37 95 20 99 Nasal Cannula 2.0 28 07/23/19 03:27 81 20 98 Nasal Cannula 2.0 28 07/23/19 00:00 101 07/23/19 00:00 97.7 71 20 132/77 (95) 97 07/22/19 23:56 110 20 99 Nasal Cannula 2.0 28 07/22/19 23:46 108 20 98 Nasal Cannula 2.0 28 07/22/19 21:00 Nasal Cannula 2.0 Nasal Cannula 2.0 07/22/19 20:03 95 20 100 Nasal Cannula 2.0 28 07/22/19 20:00 127 07/22/19 20:00 97.0 125 20 97/65 (76) 100 07/22/19 19:53 95 Nasal Cannula 2.0 28 07/22/19 19:53 77 18 95 Nasal Cannula 2.0 28 07/22/19 17:16 105 18 100 Nasal Cannula 2.0 28 90 18 96 07/22/19 16:00 97.9 127 20 98/55 (69) 94 07/22/19 16:00 121 07/22/19 12:00 107 07/22/19 12:00 98.1 115 22 101/56 (71) 100 07/22/19 11:51 109 18 98 Nasal Cannula 2.0 28 78 18 95 07/22/19 09:00 Nasal Cannula 2.0 Nasal Cannula 2.0 Intake and Output 07/22/19 07/23/19 19:00 07:00 Output Total 800 ml 1100 ml Balance -800 ml -1100 ml Output Urine Total 800 ml 1100 ml # Voids 1 1 Microbiology Date/Time Source Procedure Growth Status 07/11/19 12:00 Blood Blood Culture - Final NO GROWTH AFTER 5 DAYS Complete 07/04/19 10:15 Sputum Gram Stain - Final Complete 07/04/19 10:15 Sputum Culture - Final Nicolle Albicans Usual Respiratory Valery Complete 07/11/19 21:20 Urine,Clean Catch Urine Culture - Final NO GROWTH AFTER 48 HOURS Complete 07/04/19 00:43 Rectum - Final NO CARBAPENEM-RESISTANT ENTEROBACTERI... Complete Current Medications Medications (Trade) Dose Ordered Sig/Genoveva Route PRN Reason Start Time Stop Time Status Last Admin Dose Admin Acetaminophen (Tylenol) 650 mg Q6H PRN ORAL Mild Pain/Temp > 100.5 07/19/19 06:30 08/03/19 06:29 Albuterol/ Ipratropium (Albuterol/ Ipratropium) 3 ml Q4H PRN HHN Shortness of Breath 07/20/19 21:00 07/25/19 20:59 Albuterol/ Ipratropium (Albuterol/ Ipratropium) 3 ml Q4HRT HHN 07/22/19 10:30 07/26/19 10:29 07/23/19 07:42 Dextrose (Dextrose 50%) 25 ml Q30M PRN IV Hypoglycemia 07/19/19 06:30 08/11/19 11:59 Dextrose (Dextrose 50%) 50 ml Q30M PRN IV Hypoglycemia 07/19/19 06:30 08/11/19 11:59 Finasteride (Proscar) 5 mg DAILY ORAL 07/19/19 09:00 08/13/19 08:59 07/23/19 08:33 Hydralazine HCl (Apresoline) 10 mg Q4H PRN IV bp over 160 syst 07/19/19 06:30 08/05/19 06:29 Insulin Aspart (NovoLOG) Q6HR SUBQ 07/19/19 12:00 08/11/19 16:29 07/21/19 12:05 Nitroglycerin (Ntg) 1 patch Q24H TDERMAL 07/19/19 12:30 08/05/19 12:29 07/20/19 13:21 Pantoprazole (Protonix) 40 mg Q12HR IV 07/19/19 09:00 08/04/19 11:14 07/23/19 08:33 Potassium Chloride (K-Dur) 20 meq DAILY GT 07/22/19 09:00 08/21/19 08:59 07/23/19 08:33 Promethazine HCl/ Codeine (Phenergan with Codeine) 5 ml Q4H PRN ORAL For Cough 07/19/19 06:30 08/03/19 06:29 Sodium Chloride 1,000 ml @ 75 mls/hr [id number] IV 07/22/19 16:41 08/21/19 16:40 07/23/19 05:41 Tamsulosin HCl (Flomax) 0.4 mg BEDTIME ORAL 07/19/19 21:00 08/12/19 20:59 07/22/19 20:29 Laboratory Tests 07/23/19 06:32: White Blood Count 7.0, Red Blood Count 3.63L, Hemoglobin 10.3L, Hematocrit 31.2L , Mean Corpuscular Volume 86, Mean Corpuscular Hemoglobin 28.3, Mean Corpuscular Hemoglobin Concent 32.9, Red Cell Distribution Width 16.4H, Platelet Count 194, Mean Platelet Volume 7.0, Neutrophils (%) (Auto) 72.7, Lymphocytes (%) (Auto) 15.7L, Monocytes (%) (Auto) 8.3, Eosinophils (%) (Auto) 2.3, Basophils (%) (Auto) 1.0, Sodium Level 143, Potassium Level 4.2, Chloride Level 106, Carbon Dioxide Level 29, Anion Gap 8, Blood Urea Nitrogen 27H, Creatinine 1.0, Estimat Glomerular Filtration Rate > 60, Glucose Level 85, Calcium Level 8.4L Height (Feet): 5 Height (Inches): 8.00 Weight (Pounds): 179 Objective exam stable nixon indwelling urine yellow/kristen CT A/P (07/12) noted, KUB noted Clayton Callejas MD Jul 23, 2019 08:59
--- NOTE | 2019-07-23 09:38 | Cardiac Electrophysiology PN ---
Assessment/Plan Assessment/Plan 1. Status post bradycardic arrest off any sinus node or AV destinee blocking agents. 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 Likely precipitated by respiratory failure Non infectional. Now again going to atrial fib with RVR. Risky to add AVN blcoker in view of hx of hillary arrest. Obtained consent from for pacer to allow us adding AVN fredrick. Will proceed after Lithotripsy 2. NSTEMI. Due to arrest 3. Respiratory failure. D. Dimer positive. VQ scan pre code was low probability. Extubated 07/11/19 4. Hypotension. Improved with IV fluid 5. Dehydration and hyperatremia, resolved 6. S/P PEG 7. Diabetes. 8. Benign prostatic hypertrophy.FU Dr. Callejas. S/P CT abdomen that showed Left hydronephrosis. Stable from Cardiac perspective to proceed with Cystoscopy, Ureteroscopy and Laser lithotripsy at Moderate risk Alert with no CP. EF 65% 9. Full code. CARI RN and Dr. Callejas Subjective Subjective Developed atrial fib with RVR 148.Scheduled for Cystoscopy for Left hydronephrosis and stones by Dr. Callejas Objective Last 24 Hour Vital Signs Date Time Temp Pulse Resp B/P (MAP) Pulse Ox O2 Delivery O2 Flow Rate FiO2 07/23/19 08:07 Nasal Cannula 2.0 Nasal Cannula 2.0 07/23/19 08:00 96.8 80 19 130/66 (87) 98 07/23/19 07:41 96 18 99 Nasal Cannula 2.0 28 94 18 99 07/23/19 07:41 96 Nasal Cannula 2.0 28 07/23/19 04:00 85 07/23/19 04:00 97.0 87 20 113/64 (80) 97 07/23/19 03:37 95 20 99 Nasal Cannula 2.0 28 07/23/19 03:27 81 20 98 Nasal Cannula 2.0 28 07/23/19 00:00 101 07/23/19 00:00 97.7 71 20 132/77 (95) 97 07/22/19 23:56 110 20 99 Nasal Cannula 2.0 28 07/22/19 23:46 108 20 98 Nasal Cannula 2.0 28 07/22/19 21:00 Nasal Cannula 2.0 Nasal Cannula 2.0 07/22/19 20:03 95 20 100 Nasal Cannula 2.0 28 07/22/19 20:00 127 07/22/19 20:00 97.0 125 20 97/65 (76) 100 07/22/19 19:53 95 Nasal Cannula 2.0 28 07/22/19 19:53 77 18 95 Nasal Cannula 2.0 28 07/22/19 17:16 105 18 100 Nasal Cannula 2.0 28 90 18 96 07/22/19 16:00 97.9 127 20 98/55 (69) 94 07/22/19 16:00 121 07/22/19 12:00 107 07/22/19 12:00 98.1 115 22 101/56 (71) 100 07/22/19 11:51 109 18 98 Nasal Cannula 2.0 28 78 18 95 Intake and Output 07/22/19 07/23/19 19:00 07:00 Output Total 800 ml 1100 ml Balance -800 ml -1100 ml Output Urine Total 800 ml 1100 ml # Voids 1 1 Laboratory Tests Test 07/23/19 06:32 White Blood Count 7.0 K/UL (4.8-10.8) Red Blood Count 3.63 M/UL (4.70-6.10) L Hemoglobin 10.3 G/DL (14.2-18.0) L Hematocrit 31.2 % (42.0-52.0) L Mean Corpuscular Volume 86 FL (80-99) Mean Corpuscular Hemoglobin 28.3 PG (27.0-31.0) Mean Corpuscular Hemoglobin Concent 32.9 G/DL (32.0-36.0) Red Cell Distribution Width 16.4 % (11.6-14.8) H Platelet Count 194 K/UL (150-450) Mean Platelet Volume 7.0 FL (6.5-10.1) Neutrophils (%) (Auto) 72.7 % (45.0-75.0) Lymphocytes (%) (Auto) 15.7 % (20.0-45.0) L Monocytes (%) (Auto) 8.3 % (1.0-10.0) Eosinophils (%) (Auto) 2.3 % (0.0-3.0) Basophils (%) (Auto) 1.0 % (0.0-2.0) Sodium Level 143 MMOL/L (136-145) Potassium Level 4.2 MMOL/L (3.5-5.1) Chloride Level 106 MMOL/L (98-107) Carbon Dioxide Level 29 MMOL/L (21-32) Anion Gap 8 mmol/L (5-15) Blood Urea Nitrogen 27 mg/dL (7-18) H Creatinine 1.0 MG/DL (0.55-1.30) Estimat Glomerular Filtration Rate > 60 mL/min (>60) Glucose Level 85 MG/DL (74-106) Calcium Level 8.4 MG/DL (8.5-10.1) L Objective HEAD AND NECK: Mild JVD. LUNGS: Decreased breath sounds. CARDIOVASCULAR: IRRR tachy. No G/R/M ABDOMEN: Status post G-tube. EXTREMITIES: No pitting edema. Enio Santos MD Jul 23, 2019 09:38
--- NOTE | 2019-07-23 10:01 | NUR ---
RD ASSESSMENT & RECOMMENDATIONS SEE CARE ACTIVITY FOR COMPLETE ASSESSMENT DAILY ESTIMATED NEEDS: Needs based on Pulmonary, wound/ 67.7kg 25-30 kcals/kg 9244-0070 total kcals 1.25-1.5 g protein/kg 85-102 g total protein 25-30 mL/kg 0304-4842 total fluid mLs NUTRITION DIAGNOSIS: * Increased kcal/prot needs R/T wound healing as evidenced by pt w/ resolving wounds @ L buttocks, refer to WC eval. 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 CURRENT TF:Vital AF 1.2 @ 60ml/hr x 24 hrs (PO DIET RECOMMENDATIONS: IF PO INDICATED-> CCHO MED, LOW NA/ TEXTURE PER HEALTH EDUCATION DIRECTOR) ENTERAL NUTRITION RECOMMENDATIONS: Glucerna 1.2 @ 60ml/hr x 24 hrs to provide 1440ml, 1728kcal, 86g prot, 1159ml free water * Rec Glucerna 1.2 as pt now extubated, Vital AF no longer indicated. * Initiate Glucerna 1.2 @ 30ml/hr x 6 hrs, advance 10ml q 4-6 hrs as tolerated to goal rate. * HOB over 30 degrees * Water flush of 120ml q 4 hrs ADDITIONAL RECOMMENDATIONS: * Per SNF: HT=67" TC=[id number] (As of Jun 10, 2019) * Monitor K closely, need for TF change (K 5.9 upon adm, now wnl) * Monitor hydration status: Na now normalized, BUN trend down -> monitor need to increase H20 flushes * Wound healing: continued Dipak BID * REC Added D5 at low rate while NPO for procedures to prevent hypoglycemia Check BG q3hrs while NPO *
--- NOTE | 2019-07-23 10:43 | NUR ---
NURSE NOTES: called regarding consent for lithroscopy. She will come in today and sign consent.
--- NOTE | 2019-07-23 11:34 | Infectious Diseases Prog Note ---
Assessment/Plan Assessment/Plan Assessment: Shock, SP s/p cardiac arrest 07/05 Obstruct uropathy, L hydrouretenephrosis -07/12 CT abd/p: -07/12 CT abd/p: Moderate left hydroureteronephrosis secondary to a 1.5 cm left mid to distal ureter stone. Multiple nonobstructive stones within the right kidney. Thickening of the wall the urinary bladder consistent with cystitis. Juan catheter in good position. 10 x 7 cm left inguinal hernia containing bowel. No evidence of obstruction.Trace left pleural effusion. Bilateral posterior basal atelectasis. Sepsis, Sp Probable UTI, sp rx Acute hypoxic respiratory failure, intubated 07/05; extubated 07/11 Aspiration pneumonia vs pneumonitis Gram positive bacteremia- contaminant -07/18 CXR: Mild pulmonary vascular congestion may be present. Correlate clinically.Basal atelectasis versus infiltrate. No change -07/15 CXR:Infiltrate and/or pleural effusion suspected at the left lung base. Mild pulmonary vascular congestion not excluded. Correlate clinically. -07/13 CXR: Improving pulmonary venous congestion with unchanged small left pleural effusion and slight worsening of left basilar infiltrate, indeterminate between atelectasis and pneumonia -07/11 u/a wbc 2-4, nit neg, leuk +3; ucx Neg Bcx Neg -07/06 Bcx Neg -07/05 CXR:Mild CHF -u/a wbc 5-10, nit neg, leuk +2; ucx Neg -Bcx 06/08 dipteriods -sp cx usual resp rupert -CXR: No acute process -influenza sc neg -v. duplex: no DVT -V/q scan:Findings are deemed low probability for pulmonary embolus Fever; low grade, recurrent- SP Mild leukocytosis,recurrent- SP CARA;SP Dm2 dysphagia s/p GT hx of PNA parkinson disease HTN bed bound [facility] resident Plan: -Continue to monitor off abx -07/17 SP Ceftriaxone #3 -210 SP Flagyl # 11, Cefepime #12 -/ SP IV Vancomycin #5 -07/04 SP Levaquin x1 -f/u cx -Monitor CBC/CMP, temperatures -aspiration precautions -GT care -Cards- plan for PPM -Uro f/u -plan for lithotripsy -cleared from ID perspective for above procedures - nephro f/u -Cdiff if diarrhea -uro f/u Thank you for this consultation. Will continue to follow along with you. Subjective Allergies: Coded Allergies: PENICILLINS (Verified Allergy, Unknown, 07/04/19) Subjective afebrile no leukocytosis Objective Vital Signs Last 24 Hour Vital Signs Date Time Temp Pulse Resp B/P (MAP) Pulse Ox O2 Delivery O2 Flow Rate FiO2 07/23/19 10:50 92 18 99 Nasal Cannula 2.0 28 91 18 99 07/23/19 08:07 Nasal Cannula 2.0 Nasal Cannula 2.0 07/23/19 08:00 96.8 80 19 130/66 (87) 98 07/23/19 08:00 80 07/23/19 07:41 96 18 99 Nasal Cannula 2.0 28 94 18 99 07/23/19 07:41 96 Nasal Cannula 2.0 28 07/23/19 04:00 85 07/23/19 04:00 97.0 87 20 113/64 (80) 97 07/23/19 03:37 95 20 99 Nasal Cannula 2.0 28 07/23/19 03:27 81 20 98 Nasal Cannula 2.0 28 07/23/19 00:00 101 07/23/19 00:00 97.7 71 20 132/77 (95) 97 07/22/19 23:56 110 20 99 Nasal Cannula 2.0 28 07/22/19 23:46 108 20 98 Nasal Cannula 2.0 28 07/22/19 21:00 Nasal Cannula 2.0 Nasal Cannula 2.0 07/22/19 20:03 95 20 100 Nasal Cannula 2.0 28 07/22/19 20:00 127 07/22/19 20:00 97.0 125 20 97/65 (76) 100 07/22/19 19:53 95 Nasal Cannula 2.0 28 07/22/19 19:53 77 18 95 Nasal Cannula 2.0 28 07/22/19 17:16 105 18 100 Nasal Cannula 2.0 28 90 18 96 07/22/19 16:00 97.9 127 20 98/55 (69) 94 07/22/19 16:00 121 07/22/19 12:00 107 07/22/19 12:00 98.1 115 22 101/56 (71) 100 07/22/19 11:51 109 18 98 Nasal Cannula 2.0 28 78 18 95 Height (Feet): 5 Height (Inches): 8.00 Weight (Pounds): 179 Objective General Appearance: no distress HEENT: normocephalic, atraumatic Neck: supple Respiratory/Chest: lungs clear Cardiovascular/Chest: normal rate Abdomen: normal bowel sounds, non tender Extremities: no edema Laboratory Tests Test 07/23/19 06:32 White Blood Count 7.0 K/UL (4.8-10.8) Red Blood Count 3.63 M/UL (4.70-6.10) L Hemoglobin 10.3 G/DL (14.2-18.0) L Hematocrit 31.2 % (42.0-52.0) L Mean Corpuscular Volume 86 FL (80-99) Mean Corpuscular Hemoglobin 28.3 PG (27.0-31.0) Mean Corpuscular Hemoglobin Concent 32.9 G/DL (32.0-36.0) Red Cell Distribution Width 16.4 % (11.6-14.8) H Platelet Count 194 K/UL (150-450) Mean Platelet Volume 7.0 FL (6.5-10.1) Neutrophils (%) (Auto) 72.7 % (45.0-75.0) Lymphocytes (%) (Auto) 15.7 % (20.0-45.0) L Monocytes (%) (Auto) 8.3 % (1.0-10.0) Eosinophils (%) (Auto) 2.3 % (0.0-3.0) Basophils (%) (Auto) 1.0 % (0.0-2.0) Sodium Level 143 MMOL/L (136-145) Potassium Level 4.2 MMOL/L (3.5-5.1) Chloride Level 106 MMOL/L (98-107) Carbon Dioxide Level 29 MMOL/L (21-32) Anion Gap 8 mmol/L (5-15) Blood Urea Nitrogen 27 mg/dL (7-18) H Creatinine 1.0 MG/DL (0.55-1.30) Estimat Glomerular Filtration Rate > 60 mL/min (>60) Glucose Level 85 MG/DL (74-106) Calcium Level 8.4 MG/DL (8.5-10.1) L Current Medications Medications (Trade) Dose Ordered Sig/Genoveva Route PRN Reason Start Time Stop Time Status Last Admin Dose Admin Acetaminophen (Tylenol) 650 mg Q6H PRN ORAL Mild Pain/Temp > 100.5 07/19/19 06:30 08/03/19 06:29 Albuterol/ Ipratropium (Albuterol/ Ipratropium) 3 ml Q4H PRN HHN Shortness of Breath 07/20/19 21:00 07/25/19 20:59 Albuterol/ Ipratropium (Albuterol/ Ipratropium) 3 ml Q4HRT HHN 07/22/19 10:30 07/26/19 10:29 07/23/19 11:00 Dextrose (Dextrose 50%) 25 ml Q30M PRN IV Hypoglycemia 07/19/19 06:30 08/11/19 11:59 Dextrose (Dextrose 50%) 50 ml Q30M PRN IV Hypoglycemia 07/19/19 06:30 08/11/19 11:59 Finasteride (Proscar) 5 mg DAILY ORAL 07/19/19 09:00 08/13/19 08:59 07/23/19 08:33 Hydralazine HCl (Apresoline) 10 mg Q4H PRN IV bp over 160 syst 07/19/19 06:30 08/05/19 06:29 Insulin Aspart (NovoLOG) Q6HR SUBQ 07/19/19 12:00 08/11/19 16:29 07/21/19 12:05 Nitroglycerin (Ntg) 1 patch Q24H TDERMAL 07/19/19 12:30 08/05/19 12:29 07/20/19 13:21 Pantoprazole (Protonix) 40 mg Q12HR IV 07/19/19 09:00 08/04/19 11:14 07/23/19 08:33 Potassium Chloride (K-Dur) 20 meq DAILY GT 07/22/19 09:00 08/21/19 08:59 07/23/19 08:33 Promethazine HCl/ Codeine (Phenergan with Codeine) 5 ml Q4H PRN ORAL For Cough 07/19/19 06:30 08/03/19 06:29 Sodium Chloride 1,000 ml @ 75 mls/hr [id number] IV 07/22/19 16:41 08/21/19 16:40 2/18/20 05:41 Tamsulosin HCl (Flomax) 0.4 mg BEDTIME ORAL 07/19/19 21:00 08/12/19 20:59 07/22/19 20:29 Mirian Paeg M.D. Jul 23, 2019 11:34
[2019-07-23 12:00] VITALS: BP 117/51
--- NOTE | 2019-07-23 12:18 | Nephrology Progress Note ---
Assessment/Plan Problem List: (1) RIA (acute kidney injury) (2) Cardiac arrest with successful resuscitation (3) Respiratory failure with hypoxia (4) Hydronephrosis Assessment patient have Ria due to Low BP and s/p arrest elevated liver enzymes for same reason others: 1. Acute hypoxemic respiratory failure. 2. Hypotension possible sepsis. 3. Diabetes type 2. 4. Parkinson disease. 5. Hypercholesterolemia. 6. EjFx 65% reported 7. Dysphagia. 8. Benign prostatic hypertrophy. Plan s/p Cr 1.6 now wnl Extubated 07/11 Nitro- Phos , K , Mag supplement as needed keep BP above 100 syst Pulm support monitor renal parameters discussed with RN VALENTINA: Moderate left hydronephrosis. Juan catheter. Echogenic right kidney. Suspected medical renal disease. CXR 07/15 IMPRESSION: Infiltrate and/or pleural effusion suspected at the left lung base. Mild pulmonary vascular congestion not excluded. Correlate clinically. Subjective ROS Limited/Unobtainable: No Constitutional: Reports: malaise, weakness Objective Objective Last 24 Hour Vital Signs Date Time Temp Pulse Resp B/P (MAP) Pulse Ox O2 Delivery O2 Flow Rate FiO2 07/23/19 10:50 92 18 99 Nasal Cannula 2.0 28 91 18 99 07/23/19 08:07 Nasal Cannula 2.0 Nasal Cannula 2.0 07/23/19 08:00 96.8 80 19 130/66 (87) 98 07/23/19 08:00 80 07/23/19 07:41 96 18 99 Nasal Cannula 2.0 28 94 18 99 07/23/19 07:41 96 Nasal Cannula 2.0 28 07/23/19 04:00 85 07/23/19 04:00 97.0 87 20 113/64 (80) 97 07/23/19 03:37 95 20 99 Nasal Cannula 2.0 28 07/23/19 03:27 81 20 98 Nasal Cannula 2.0 28 07/23/19 00:00 101 07/23/19 00:00 97.7 71 20 132/77 (95) 97 07/22/19 23:56 110 20 99 Nasal Cannula 2.0 28 07/22/19 23:46 108 20 98 Nasal Cannula 2.0 28 07/22/19 21:00 Nasal Cannula 2.0 Nasal Cannula 2.0 07/22/19 20:03 95 20 100 Nasal Cannula 2.0 28 07/22/19 20:00 127 07/22/19 20:00 97.0 125 20 97/65 (76) 100 07/22/19 19:53 95 Nasal Cannula 2.0 28 07/22/19 19:53 77 18 95 Nasal Cannula 2.0 28 07/22/19 17:16 105 18 100 Nasal Cannula 2.0 28 90 18 96 07/22/19 16:00 97.9 127 20 98/55 (69) 94 07/22/19 16:00 121 Intake and Output 07/22/19 07/23/19 19:00 07:00 Output Total 800 ml 1100 ml Balance -800 ml -1100 ml Output Urine Total 800 ml 1100 ml # Voids 1 1 Laboratory Tests 07/23/19 06:32: White Blood Count 7.0, Red Blood Count 3.63L, Hemoglobin 10.3L, Hematocrit 31.2L , Mean Corpuscular Volume 86, Mean Corpuscular Hemoglobin 28.3, Mean Corpuscular Hemoglobin Concent 32.9, Red Cell Distribution Width 16.4H, Platelet Count 194, Mean Platelet Volume 7.0, Neutrophils (%) (Auto) 72.7, Lymphocytes (%) (Auto) 15.7L, Monocytes (%) (Auto) 8.3, Eosinophils (%) (Auto) 2.3, Basophils (%) (Auto) 1.0, Sodium Level 143, Potassium Level 4.2, Chloride Level 106, Carbon Dioxide Level 29, Anion Gap 8, Blood Urea Nitrogen 27H, Creatinine 1.0, Estimat Glomerular Filtration Rate > 60, Glucose Level 85, Calcium Level 8.4L Height (Feet): 5 Height (Inches): 8.00 Weight (Pounds): 179 General Appearance: no apparent distress, lethargic Cardiovascular: tachycardia Respiratory/Chest: decreased breath sounds Abdomen: distended Objective no change Oskar Mohr MD Jul 23, 2019 12:18
--- NOTE | 2019-07-23 12:26 | Pulmonology Progress Note ---
Assessment/Plan Problems: (1) Cardiac arrest with successful resuscitation (2) Respiratory failure with hypoxia (3) Sepsis Assessment & Plan: resolved, off abx (4) CARA (acute kidney injury) (5) Anemia (6) Hypertensive heart disease (7) BPH (benign prostatic hyperplasia) (8) DVT (deep venous thrombosis) (9) Parkinson disease (10) Diabetes mellitus (11) Feeding by G-tube Assessment/Plan for lithotripsy in am pacemaker on monday wbc wnl, afebrile bun/creatinine better no new cultures tolerating diet aspiration precaution titrate fio2 to sat of 92% sliding sclae\ Subjective ROS Limited/Unobtainable: No Interval Events: awake, comfortable Constitutional: Reports: no symptoms Allergies: Coded Allergies: PENICILLINS (Verified Allergy, Unknown, 07/04/19) Objective Last 24 Hour Vital Signs Date Time Temp Pulse Resp B/P (MAP) Pulse Ox O2 Delivery O2 Flow Rate FiO2 07/23/19 10:50 92 18 99 Nasal Cannula 2.0 28 91 18 99 07/23/19 08:07 Nasal Cannula 2.0 Nasal Cannula 2.0 07/23/19 08:00 96.8 80 19 130/66 (87) 98 07/23/19 08:00 80 07/23/19 07:41 96 18 99 Nasal Cannula 2.0 28 94 18 99 07/23/19 07:41 96 Nasal Cannula 2.0 28 07/23/19 04:00 85 07/23/19 04:00 97.0 87 20 113/64 (80) 97 07/23/19 03:37 95 20 99 Nasal Cannula 2.0 28 07/23/19 03:27 81 20 98 Nasal Cannula 2.0 28 07/23/19 00:00 101 07/23/19 00:00 97.7 71 20 132/77 (95) 97 07/22/19 23:56 110 20 99 Nasal Cannula 2.0 28 07/22/19 23:46 108 20 98 Nasal Cannula 2.0 28 07/22/19 21:00 Nasal Cannula 2.0 Nasal Cannula 2.0 07/22/19 20:03 95 20 100 Nasal Cannula 2.0 28 07/22/19 20:00 127 07/22/19 20:00 97.0 125 20 97/65 (76) 100 07/22/19 19:53 95 Nasal Cannula 2.0 28 07/22/19 19:53 77 18 95 Nasal Cannula 2.0 28 07/22/19 17:16 105 18 100 Nasal Cannula 2.0 28 90 18 96 07/22/19 16:00 97.9 127 20 98/55 (69) 94 07/22/19 16:00 121 Intake and Output 07/22/19 07/23/19 19:00 07:00 Output Total 800 ml 1100 ml Balance -800 ml -1100 ml Output Urine Total 800 ml 1100 ml # Voids 1 1 General Appearance: WD/WN HEENT: normocephalic, anicteric Respiratory/Chest: crackles/rales Cardiovascular: normal peripheral pulses, normal rate Abdomen: normal bowel sounds, soft, non tender Genitourinary: normal external genitalia Extremities: no clubbing Neurologic/Psychiatric: training officer II-XII grossly normal Laboratory Tests 07/23/19 06:32: White Blood Count 7.0, Red Blood Count 3.63L, Hemoglobin 10.3L, Hematocrit 31.2L , Mean Corpuscular Volume 86, Mean Corpuscular Hemoglobin 28.3, Mean Corpuscular Hemoglobin Concent 32.9, Red Cell Distribution Width 16.4H, Platelet Count 194, Mean Platelet Volume 7.0, Neutrophils (%) (Auto) 72.7, Lymphocytes (%) (Auto) 15.7L, Monocytes (%) (Auto) 8.3, Eosinophils (%) (Auto) 2.3, Basophils (%) (Auto) 1.0, Sodium Level 143, Potassium Level 4.2, Chloride Level 106, Carbon Dioxide Level 29, Anion Gap 8, Blood Urea Nitrogen 27H, Creatinine 1.0, Estimat Glomerular Filtration Rate > 60, Glucose Level 85, Calcium Level 8.4L Current Medications Medications (Trade) Dose Ordered Sig/Genoveva Route PRN Reason Start Time Stop Time Status Last Admin Dose Admin Acetaminophen (Tylenol) 650 mg Q6H PRN ORAL Mild Pain/Temp > 100.5 07/19/19 06:30 08/03/19 06:29 Albuterol/ Ipratropium (Albuterol/ Ipratropium) 3 ml Q4H PRN HHN Shortness of Breath 07/20/19 21:00 07/25/19 20:59 Albuterol/ Ipratropium (Albuterol/ Ipratropium) 3 ml Q4HRT HHN 07/22/19 10:30 07/26/19 10:29 07/23/19 11:00 Dextrose (Dextrose 50%) 25 ml Q30M PRN IV Hypoglycemia 07/19/19 06:30 08/11/19 11:59 Dextrose (Dextrose 50%) 50 ml Q30M PRN IV Hypoglycemia 07/19/19 06:30 08/11/19 11:59 Finasteride (Proscar) 5 mg DAILY ORAL 07/19/19 09:00 08/13/19 08:59 07/23/19 08:33 Hydralazine HCl (Apresoline) 10 mg Q4H PRN IV bp over 160 syst 07/19/19 06:30 08/05/19 06:29 Insulin Aspart (NovoLOG) Q6HR SUBQ 07/19/19 12:00 08/11/19 16:29 07/21/19 12:05 Nitroglycerin (Ntg) 1 patch Q24H TDERMAL 07/19/19 12:30 08/05/19 12:29 07/20/19 13:21 Pantoprazole (Protonix) 40 mg Q12HR IV 07/19/19 09:00 08/04/19 11:14 07/23/19 08:33 Potassium Chloride (K-Dur) 20 meq DAILY GT 07/22/19 09:00 08/21/19 08:59 07/23/19 08:33 Promethazine HCl/ Codeine (Phenergan with Codeine) 5 ml Q4H PRN ORAL For Cough 07/19/19 06:30 08/03/19 06:29 Sodium Chloride 1,000 ml @ 75 mls/hr [id number] IV 07/22/19 16:41 08/21/19 16:40 07/23/19 05:41 Tamsulosin HCl (Flomax) 0.4 mg BEDTIME ORAL 07/19/19 21:00 08/12/19 20:59 07/22/19 20:29 Kathryn Lopez MD Jul 23, 2019 12:26
[2019-07-23] MEDS: Nitroglycerin Patch 0.4mg TDERMAL SCH (13:22)
--- NOTE | 2019-07-23 13:24 | Anethesia Preoperative Eval ---
Anesthesia Pre-op PMH/ROS General Date of Evaluation: Jul 23, 2019 Time of Evaluation: 13:17 Anesthesiologist: Javy ASA Score: ASA 4 Mallampati Score Class I : Soft palate, uvula, fauces, pillars visible Class II: Soft palate, uvula, fauces visible Class III: Soft palate, base of uvula visible Class IV: Only hard plate visible Mallampati Classification: Class III Surgeon: Britta Diagnosis: Kidney stone Surgical Procedure: Cysto lithotrypsy Anesthesia History: none Family History: no anesthesia problems Allergies: Coded Allergies: PENICILLINS (Verified Allergy, Unknown, 07/04/19) Medications: see eMAR Patient NPO?: Yes Past Medical History Cardiovascular: Reports: HTN, [place], arrhythmia, other - s/p cardiac arrest Pulmonary: Reports: other - h/o respiratory failure Gastrointestinal/Genitourinary: Reports: GERD, CRI, other - dysphagia feeding tube in place; Denies: ESRD Neurologic/Psychiatric: Reports: dementia, other - Parkinsons; Denies: CVA, depression/anxiety, TIA Endocrine: Reports: DM, hypothyroidism; Denies: steroids, other HEENT: Reports: cataract (L), cataract (R); Denies: glaucoma, [place] (L), [place] (R), other Hematology/Immune: Reports: anemia - mild; Denies: DVT, bleeding disorder, other Musculoskeletal/Integumentary: Reports: DJD, other - contracted; Denies: OA, RA, DDD, edema Other: other - contructed PMH Narrative: as above PSxH Narrative: peg tube placement Anesthesia Pre-op Phys. Exam Physician Exam Last Vital Signs Date Time Temp Pulse Resp B/P (MAP) Pulse Ox O2 Delivery O2 Flow Rate FiO2 07/23/19 12:00 88 07/23/19 12:00 96.7 18 117/51 (73) 98 07/23/19 10:50 Nasal Cannula 2.0 28 Constitutional: NAD Neurologic: other - unable to obtaine Cardiovascular: other - IIR Respiratory: other - some cracles and rhonky bilaterally Gastrointestinal: S/NT/ND Airway Exam Mallampati Score: Class III MO: limited Neck: stiff ROM: limited Teeth: missing Dentures: no upper, no lower Anesthesia Pre-op A/P Labs Hematology Test 07/23/19 06:32 White Blood Count 7.0 K/UL (4.8-10.8) Red Blood Count 3.63 M/UL (4.70-6.10) L Hemoglobin 10.3 G/DL (14.2-18.0) L Hematocrit 31.2 % (42.0-52.0) L Mean Corpuscular Volume 86 FL (80-99) Mean Corpuscular Hemoglobin 28.3 PG (27.0-31.0) Mean Corpuscular Hemoglobin Concent 32.9 G/DL (32.0-36.0) Red Cell Distribution Width 16.4 % (11.6-14.8) H Platelet Count 194 K/UL (150-450) Mean Platelet Volume 7.0 FL (6.5-10.1) Neutrophils (%) (Auto) 72.7 % (45.0-75.0) Lymphocytes (%) (Auto) 15.7 % (20.0-45.0) L Monocytes (%) (Auto) 8.3 % (1.0-10.0) Eosinophils (%) (Auto) 2.3 % (0.0-3.0) Basophils (%) (Auto) 1.0 % (0.0-2.0) Chemistry Test 07/23/19 06:32 Sodium Level 143 MMOL/L (136-145) Potassium Level 4.2 MMOL/L (3.5-5.1) Chloride Level 106 MMOL/L (98-107) Carbon Dioxide Level 29 MMOL/L (21-32) Anion Gap 8 mmol/L (5-15) Blood Urea Nitrogen 27 mg/dL (7-18) H Creatinine 1.0 MG/DL (0.55-1.30) Estimat Glomerular Filtration Rate > 60 mL/min (>60) Glucose Level 85 MG/DL (74-106) Calcium Level 8.4 MG/DL (8.5-10.1) L Risk Assessment & Plan Assessment: ASA 4 Plan: GA with LMA keep spontaneous breathing, Status Change Before Surgery: No Pre-Antibiotics Drug: as scheduled Cesar Palafox MD Jul 23, 2019 13:24
[2019-07-23 16:00] VITALS: BP 114/60
--- NOTE | 2019-07-23 19:00 | NUR ---
NURSE NOTES: Received report from VIRGIL Manning. Patient is awake, lying in semi ryan's; resting comfortably. A/Ox2. Denies pain at this time. No signs of acute distress noted. G tube patent with no gastric residual volume. Checked IV site and flushed. No signs of erythema, bleeding or infiltration noted. With nixon catheter draining well to gravity. On P200 mattress for wound management. Bed at lowest position, brakes on, [id number]. Call light within reach. Will continue to monitor.
--- NOTE | 2019-07-23 19:22 | Internal Med Progress Note ---
Subjective Date of Service: Jul 23, 2019 Physician Name Shukri Glover Attending Physician Rayshawn Woods MD Current Medications Medications (Trade) Dose Ordered Sig/Genoveva Route PRN Reason Start Time Stop Time Status Last Admin Dose Admin Acetaminophen (Tylenol) 650 mg Q6H PRN ORAL Mild Pain/Temp > 100.5 07/19/19 06:30 08/03/19 06:29 Albuterol/ Ipratropium (Albuterol/ Ipratropium) 3 ml Q4H PRN HHN Shortness of Breath 07/20/19 21:00 07/25/19 20:59 Albuterol/ Ipratropium (Albuterol/ Ipratropium) 3 ml Q4HRT HHN 07/22/19 10:30 07/26/19 10:29 07/23/19 14:54 Cefazolin Sodium 1 gm/Dextrose 55 ml @ 110 mls/hr ONCE ONCE IVPB 07/24/19 06:00 07/24/19 06:29 Dextrose (Dextrose 50%) 25 ml Q30M PRN IV Hypoglycemia 07/19/19 06:30 08/11/19 11:59 Dextrose (Dextrose 50%) 50 ml Q30M PRN IV Hypoglycemia 07/19/19 06:30 08/11/19 11:59 Finasteride (Proscar) 5 mg DAILY ORAL 07/19/19 09:00 08/13/19 08:59 07/23/19 08:33 Hydralazine HCl (Apresoline) 10 mg Q4H PRN IV bp over 160 syst 07/19/19 06:30 08/05/19 06:29 Insulin Aspart (NovoLOG) Q6HR SUBQ 07/19/19 12:00 08/11/19 16:29 07/21/19 12:05 Nitroglycerin (Ntg) 1 patch Q24H TDERMAL 07/19/19 12:30 08/05/19 12:29 07/23/19 13:22 Pantoprazole (Protonix) 40 mg Q12HR IV 07/19/19 09:00 08/04/19 11:14 07/23/19 08:33 Potassium Chloride (K-Dur) 20 meq DAILY GT 07/22/19 09:00 08/21/19 08:59 07/23/19 08:33 Promethazine HCl/ Codeine (Phenergan with Codeine) 5 ml Q4H PRN ORAL For Cough 07/19/19 06:30 08/03/19 06:29 Sodium Chloride 1,000 ml @ 75 mls/hr [id number] IV 07/22/19 16:41 08/21/19 16:40 07/23/19 05:41 Tamsulosin HCl (Flomax) 0.4 mg BEDTIME ORAL 07/19/19 21:00 08/12/19 20:59 07/22/19 20:29 Allergies: Coded Allergies: PENICILLINS (Verified Allergy, Unknown, 07/04/19) ROS Limited/Unobtainable: Yes Subjective 83 YO M admitted with dyspnea, now respiratory failure. Cover for Int Med-Dr Woods. Extubated 07/11/19. Scheduled for cystoscopy/ureteroscopy 07/24/19 Objective Last Vital Signs Date Time Temp Pulse Resp B/P (MAP) Pulse Ox O2 Delivery O2 Flow Rate FiO2 07/23/19 16:00 96.8 81 18 114/60 (78) 97 07/23/19 14:57 Nasal Cannula 2.0 28 Laboratory Tests Test 07/23/19 06:32 White Blood Count 7.0 K/UL (4.8-10.8) Red Blood Count 3.63 M/UL (4.70-6.10) L Hemoglobin 10.3 G/DL (14.2-18.0) L Hematocrit 31.2 % (42.0-52.0) L Mean Corpuscular Volume 86 FL (80-99) Mean Corpuscular Hemoglobin 28.3 PG (27.0-31.0) Mean Corpuscular Hemoglobin Concent 32.9 G/DL (32.0-36.0) Red Cell Distribution Width 16.4 % (11.6-14.8) H Platelet Count 194 K/UL (150-450) Mean Platelet Volume 7.0 FL (6.5-10.1) Neutrophils (%) (Auto) 72.7 % (45.0-75.0) Lymphocytes (%) (Auto) 15.7 % (20.0-45.0) L Monocytes (%) (Auto) 8.3 % (1.0-10.0) Eosinophils (%) (Auto) 2.3 % (0.0-3.0) Basophils (%) (Auto) 1.0 % (0.0-2.0) Sodium Level 143 MMOL/L (136-145) Potassium Level 4.2 MMOL/L (3.5-5.1) Chloride Level 106 MMOL/L (98-107) Carbon Dioxide Level 29 MMOL/L (21-32) Anion Gap 8 mmol/L (5-15) Blood Urea Nitrogen 27 mg/dL (7-18) H Creatinine 1.0 MG/DL (0.55-1.30) Estimat Glomerular Filtration Rate > 60 mL/min (>60) Glucose Level 85 MG/DL (74-106) Calcium Level 8.4 MG/DL (8.5-10.1) L Intake and Output 07/22/19 07/23/19 19:00 07:00 Output Total 800 ml 1100 ml Balance -800 ml -1100 ml Output Urine Total 800 ml 1100 ml # Voids 1 1 Objective PHYSICAL EXAMINATION: GENERAL: The patient is a well-developed and well-nourished male, in moderate respiratory distress. HEENT: Eyes, pupils are equal and responsive to light and accommodation. Extraocular movements are intact. NECK: Supple without lymphadenopathy. CHEST: nasal canula; Coarse breath sounds bilaterally with expiratory wheezes. Otherwise, without crackles. ABDOMINAL: Soft, nontender, and nondistended. Positive bowel sounds. No evidence of hepatosplenomegaly. Currently, no rebound or guarding noted. CARDIOVASCULAR: Tachycardic. Regular rhythm. S1 and S2 are normal without murmurs, rubs, or gallops. GENITOURINARY: Deferred. NEUROLOGICAL: Cranial nerves II to XII are grossly intact without focal deficits. EXTREMITIES: Negative for clubbing, cyanosis, or edema. Assessment/Plan Assessment/Plan ASSESSMENT: This is an 83-year-old male. 1. Dyspnea. 2. Respiratory distress. 3. Diabetes type 2. 4. Parkinson disease. 5. Hypercholesterolemia. 6. Dilated cardiomyopathy. 7. Dysphagia. 8. Benign prostatic hypertrophy. 9. Left Ureteral stone/hydronephrosis TREATMENT: 1. Dyspnea/respiratory distress. A Pulmonary consultation has been obtained with Dr. Kathryn Lopez. The patient is currently extubated. ABX=Ceftriaxone. We will follow recommendations of Pulmonary. 2. Diabetes type 2. 3. Hypercholesterolemia. 4. Dilated cardiomyopathy. 5. Dysphagia. The patient is status post PEG placement. 6. Hypertensive heart disease. 7. Benign prostatic hypertrophy. 8. ID=DR. Page 9. Urology = Dr. Callejas; Scheduled for cystoscopy/ureteroscopy 07/24/19 10. See cardiology = Dr Santos clearance for cystoscopy Shukri Glover MD Jul 23, 2019 19:22
[2019-07-23 20:00] VITALS: BP 125/67
--- NOTE | 2019-07-23 20:02 | NUR ---
HAND-OFF: Report given to Maricel HERMAN. Patient stable. Plan of care endorsed.
[2019-07-23] MEDS: Tamsulosin 0.4mg cap ORAL SCH (20:43)
[2019-07-24] VITALS (12 sets, daily range): BP systolic 101–162; BP diastolic 50–79
[2019-07-24] MEDS: Albuterol/Ipratropium 3ml neb HHN SCH ×6 (03:07→22:29)
--- NOTE | 2019-07-24 03:58 | NUR ---
NURSE NOTES: Resting throughout the night. No significant change of condition noted. Will continue to monitor.
[2019-07-24] MEDS: NovoLOG Insulin Flexpen SUBQ SCH ×4 (05:21→17:44)
[2019-07-24] MEDS ORDERED: ceFAZolin sod 1 GM in D5W 55 ML IVPB ONE (06:00)
[2019-07-24] MEDS ORDERED: fentaNYL 100 mcg/2 mL IV ONE (06:16)
[2019-07-24] MEDS ORDERED: Lidocaine 1% MPF 10mg/ml 5ml ONE (06:16)
[2019-07-24] MEDS ORDERED: Propofol 200mg/20ml IV ONE (06:16)
[2019-07-24] MEDS ORDERED: cefOXitin 1gm Inj ONE (06:29)
--- NOTE | 2019-07-24 06:36 | NUR ---
NURSE NOTES: Patient was transferred to OR via hospital bed accompanied by 1 staff member, Lio. No signs of acute distress noted.
[2019-07-24] MEDS ORDERED: Iothalamate Meglumine 60% 50ML INJ ONE (06:41)
[2019-07-24] MEDS ORDERED: NS Irrig 4000ml IRRIG ONE (07:00)
--- NOTE | 2019-07-24 07:00 | Urology Progress Note ---
Assessment/Plan Assessment/Plan: 1. Left-sided hydronephrosis, poss chronic. 2. Proteinuria. 3. Hematuria. 4. Pyuria. 5. Urinary retention. 6. BPH history. 7. Rule out neurogenic bladder. 8. Mild acute kidney injury, improved. 9. Left ureteral calculus. 10. Right renal calculi. 11. Cystitis. 12. Left inguinal hernia. monitor clinically maintain nixon hand irrigate PRN cath secured to pt's leg s/p abx monitor renal fxn flomax and proscar added plan tx of stones today plan tx of obst left-sided stone, poss right renal calc if feasible currently no flank pain and normal Cr voiding trial at some point? card cleared, d/w Dr. Santos d/w pt's d/w Dr. Glover NPO, consent Subjective Allergies: Coded Allergies: PENICILLINS (Verified Allergy, Unknown, 07/04/19) Subjective all noted, plan litho today, spoke with pt's Objective Last 24 Hour Vital Signs Date Time Temp Pulse Resp B/P (MAP) Pulse Ox O2 Delivery O2 Flow Rate FiO2 07/24/19 04:00 96.4 86 20 124/53 (76) 95 07/24/19 04:00 80 07/24/19 03:07 81 18 100 Nasal Cannula 2.0 28 80 18 97 07/24/19 00:00 96.6 83 20 101/50 (67) 98 07/24/19 00:00 84 07/23/19 23:08 83 18 100 Nasal Cannula 2.0 28 80 18 99 07/23/19 21:00 Nasal Cannula 2.0 Nasal Cannula 2.0 07/23/19 20:00 81 07/23/19 20:00 96.1 78 20 125/67 (86) 99 07/23/19 19:36 73 18 99 Nasal Cannula 2.0 28 70 18 98 07/23/19 19:36 98 Nasal Cannula 2.0 28 07/23/19 16:00 86 07/23/19 16:00 96.8 81 18 114/60 (78) 97 07/23/19 14:57 93 18 98 Nasal Cannula 2.0 28 92 18 96 07/23/19 13:22 117/51 07/23/19 12:00 88 07/23/19 12:00 96.7 87 18 117/51 (73) 98 07/23/19 10:50 92 18 99 Nasal Cannula 2.0 28 91 18 99 07/23/19 08:07 Nasal Cannula 2.0 Nasal Cannula 2.0 07/23/19 08:00 96.8 80 19 130/66 (87) 98 07/23/19 08:00 80 07/23/19 07:41 96 18 99 Nasal Cannula 2.0 28 94 18 99 07/23/19 07:41 96 Nasal Cannula 2.0 28 Intake and Output 07/23/19 07/24/19 19:00 07:00 Intake Total 30 ml Output Total 1200 ml 1600 ml Balance -1200 ml -1570 ml Intake Oral 30 ml Output Urine Total 1200 ml 1600 ml # Voids 3 Microbiology Date/Time Source Procedure Growth Status 07/11/19 12:00 Blood Blood Culture - Final NO GROWTH AFTER 5 DAYS Complete 07/04/19 10:15 Sputum Gram Stain - Final Complete 07/04/19 10:15 Sputum Culture - Final Nicolle Albicans Usual Respiratory Valery Complete 07/11/19 21:20 Urine,Clean Catch Urine Culture - Final NO GROWTH AFTER 48 HOURS Complete 07/04/19 00:43 Rectum - Final NO CARBAPENEM-RESISTANT ENTEROBACTERI... Complete Current Medications Medications (Trade) Dose Ordered Sig/Genoveva Route PRN Reason Start Time Stop Time Status Last Admin Dose Admin Acetaminophen (Tylenol) 650 mg Q6H PRN ORAL Mild Pain/Temp > 100.5 07/19/19 06:30 08/03/19 06:29 Albuterol/ Ipratropium (Albuterol/ Ipratropium) 3 ml Q4H PRN HHN Shortness of Breath 07/20/19 21:00 07/25/19 20:59 Albuterol/ Ipratropium (Albuterol/ Ipratropium) 3 ml Q4HRT HHN 07/22/19 10:30 07/26/19 10:29 07/24/19 03:07 Dextrose (Dextrose 50%) 25 ml Q30M PRN IV Hypoglycemia 07/19/19 06:30 08/11/19 11:59 Dextrose (Dextrose 50%) 50 ml Q30M PRN IV Hypoglycemia 07/19/19 06:30 08/11/19 11:59 Finasteride (Proscar) 5 mg DAILY ORAL 07/19/19 09:00 08/13/19 08:59 07/23/19 08:33 Hydralazine HCl (Apresoline) 10 mg Q4H PRN IV bp over 160 syst 07/19/19 06:30 08/05/19 06:29 Insulin Aspart (NovoLOG) Q6HR SUBQ 07/19/19 12:00 08/11/19 16:29 07/21/19 12:05 Nitroglycerin (Ntg) 1 patch Q24H TDERMAL 07/19/19 12:30 08/05/19 12:29 07/23/19 13:22 Pantoprazole (Protonix) 40 mg Q12HR IV 07/19/19 09:00 08/04/19 11:14 07/23/19 20:43 Potassium Chloride (K-Dur) 20 meq DAILY GT 07/22/19 09:00 08/21/19 08:59 07/23/19 08:33 Promethazine HCl/ Codeine (Phenergan with Codeine) 5 ml Q4H PRN ORAL For Cough 07/19/19 06:30 08/03/19 06:29 Sodium Chloride 1,000 ml @ 75 mls/hr [id number] IV 07/22/19 16:41 08/21/19 16:40 07/23/19 20:40 Tamsulosin HCl (Flomax) 0.4 mg BEDTIME ORAL 07/19/19 21:00 08/12/19 20:59 07/23/19 20:43 Height (Feet): 5 Height (Inches): 6.00 Weight (Pounds): 176 Objective exam stable nixon indwelling urine yellow/kristen CT A/P (07/12) noted, KUB noted Clayton Callejas MD Jul 24, 2019 06:59
--- NOTE | 2019-07-24 07:01 | Pre-Procedure Note/Attestation ---
Pre-Procedure Note/Attestation Complete Prior to Procedure Planned Procedure: bilateral Procedure Narrative: cysto, retrograde, ureteroscopy, laser litho, poss ESWL, ureteral stent Indications for Procedure Pre-Operative Diagnosis: left ureteral calc, right renal calc Attestation I attest that I discussed the nature of the procedure; its benefits; risks and complications; and alternatives (and the risks and benefits of such alternatives ), prior to the procedure, with the patient (or the patient's legal software sales representative). I attest that, if there was a reasonable possibility of needing a blood transfusion, the patient (or the patient's legal software sales representative) was given the [facility] standardized written summary, pursuant to the Rian Rolo Blood Safety Act ([place] Health and Safety Code # 1645, as amended). I attest that I re-evaluated the patient just prior to the surgery and that there has been no change in the patient's H&P, except as documented below: Clayton Callejas MD Jul 24, 2019 07:00
--- NOTE | 2019-07-24 07:45 | NUR ---
HAND-OFF: Report given to VIRGIL Page. Plan of care endorsed
--- NOTE | 2019-07-24 08:08 | NUR ---
NURSE NOTES: Pt is in OR currently
--- NOTE | 2019-07-24 08:58 | Brief Operative Note ---
Immediate Post Operative Note Operative Note Pre-op Diagnosis: left ureteral calc, right renal calc Procedure: cysto, left ureteroscopy, laser litho, ureteral stent, right ESWL Post-op Diagnosis: same as pre-op Findings: consistent w/pre-op dx studies Surgeon: juliet Anesthesiologist: tim Anesthesia: general Specimen: yes Complications: none Condition: stable Fluids: NS Implant(s) used?: Yes - 7f x24 cm left ureteral JJ stent Clayton Callejas MD Jul 24, 2019 08:58
--- NOTE | 2019-07-24 09:17 | Immediate Post-Op Evaluation ---
Immediate Post-Op Evalulation Immediate Post-Op Evalulation Procedure: Cysto,L ureteral stone laser lithotrypsy, stent placement Date of Evaluation: Jul 24, 2019 Time of Evaluation: 09:15 IV Fluids: 300 Blood Products: none Estimated Blood Loss: n/a Urinary Output: n/a Blood Pressure Systolic: 134 Blood Pressure Diastolic: 64 Pulse Rate: 72 Respiratory Rate: 20 O2 Sat by Pulse Oximetry: 99 Temperature (Fahrenheit): 97.4 Pain Score (1-10): 2 Nausea: No Vomiting: No Complications none Patient Status: reacts, patent, none Hydration Status: adequate Cesar Palafox MD Jul 24, 2019 09:17
[2019-07-24] MEDS: Pantoprazole Inj IV SCH ×2 (10:03→21:00)
--- NOTE | 2019-07-24 10:16 | NUR ---
WEEKLY SWALLOW/SPEECH THERAPY SUMMARY: PATIENT JUST HAD A PROCEDURE TODAY SO HE WAS GIVEN MEDS THAT MAKE HIM LESS ALERT. HE IS SOMETIMES ALERT BUT NOT RESPONDING VERBALLY. HE IS BREATHING WITH HIS MOUTH OPEN. NO NEED FOR OROPHARYNGEAL SUCTION NOW BUT SOMETIMES NEEDS SUCTION PER RNHIRAM. GOALS NOT MET FOR PO INTAKE HE NOT ALERT NOW AND HE STILL NEEDS A MODIFIED BARIUM SWALLOW STUDY TO FURTHER ASSESS HIS SWALLOW AND DETERMINE SILENT ASPIRATION RISK. GOALS MET FOR STAFF EDUCATED/TRAINED IN NEED FOR ORAL CARE AND ASPIRATION PRECAUTIONS FOR ORAL SECRETIONS AND PEG WHEN TUBE FEEDINGS RUNNING. PLAN: CONTINUE WITH NONORAL (PEG) FEEDINGS AND ORAL CARE/SUCTION FOR NOW CONSIDER HOLDING OFF ON ORAL GRATIFICATION OR PO INTAKE WHEN READY FOR MODIFIED BARIUM SWALLOW STUDY INPATIENT OR OUTPATIENT IF HE NEEDS TO BE DISCHARGED.
--- NOTE | 2019-07-24 11:40 | Cardiac Electrophysiology PN ---
Assessment/Plan Assessment/Plan 1. Status post bradycardic arrest off any sinus node or AV destinee blocking agents. 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 Likely precipitated by respiratory failure Non infectional. Now again going to atrial fib with RVR. Risky to add AVN blcoker in view of hx of hillary arrest. Obtained consent from for pacer to allow us adding AVN fredrick. Scheduled for PPM on Monday at noon. DR Page from ID cleared patient as well 2. NSTEMI. Due to arrest 3. Respiratory failure. D. Dimer positive. VQ scan pre code was low probability. Extubated 07/11/19 4. Hypotension. Improved with IV fluid 5. Dehydration and hyperatremia, resolved 6. S/P PEG 7. Diabetes. 8. Benign prostatic hypertrophy.FU Dr. Callejas. S/P CT abdomen that showed Left hydronephrosis. Tolerated Cystoscopy, Ureteroscopy and Laser lithotripsy and ureteral stent by Dr Callejas Alert with no CP. EF 65% 9. Full code. DW RN, daughter and Dr. Callejas Subjective Subjective In atrial fib with controlled rate.S/P Cystoscopy for Left hydronephrosis and lithotripsy by Dr. Callejas today Objective Last 24 Hour Vital Signs Date Time Temp Pulse Resp B/P (MAP) Pulse Ox O2 Delivery O2 Flow Rate FiO2 07/24/19 11:16 87 20 100 Nasal Cannula 2.0 28 66 16 98 07/24/19 09:50 97.2 68 21 145/68 100 Nasal Cannula 3 07/24/19 09:45 68 19 156/69 99 Nasal Cannula 3 07/24/19 09:35 69 20 162/79 100 Simple Mask 6 07/24/19 09:25 67 21 158/69 99 Simple Mask 6 07/24/19 09:17 72 20 99 07/24/19 09:15 68 22 138/57 98 Simple Mask 6 07/24/19 09:10 72 28 145/61 100 Simple Mask 6 07/24/19 09:05 97.0 69 25 146/61 99 Simple Mask 6 07/24/19 09:00 Nasal Cannula 2.0 Nasal Cannula 2.0 07/24/19 07:35 96 Nasal Cannula 2.0 28 07/24/19 04:00 96.4 86 20 124/53 (76) 95 07/24/19 04:00 80 2/19/20 03:07 81 18 100 Nasal Cannula 2.0 28 80 18 97 07/24/19 00:00 96.6 83 20 101/50 (67) 98 07/24/19 00:00 84 07/23/19 23:08 83 18 100 Nasal Cannula 2.0 28 80 18 99 07/23/19 21:00 Nasal Cannula 2.0 Nasal Cannula 2.0 07/23/19 20:00 81 07/23/19 20:00 96.1 78 20 125/67 (86) 99 07/23/19 19:36 73 18 99 Nasal Cannula 2.0 28 70 18 98 07/23/19 19:36 98 Nasal Cannula 2.0 28 07/23/19 16:00 86 07/23/19 16:00 96.8 81 18 114/60 (78) 97 07/23/19 14:57 93 18 98 Nasal Cannula 2.0 28 92 18 96 07/23/19 13:22 117/51 07/23/19 12:00 88 07/23/19 12:00 96.7 87 18 117/51 (73) 98 Intake and Output 07/23/19 07/24/19 19:00 07:00 Intake Total 30 ml Output Total 1200 ml 1600 ml Balance -1200 ml -1570 ml Intake Oral 30 ml Output Urine Total 1200 ml 1600 ml # Voids 3 Objective HEAD AND NECK: Mild JVD. LUNGS: Decreased breath sounds. CARDIOVASCULAR: IRRR tachy. No G/R/M ABDOMEN: Status post G-tube. EXTREMITIES: No pitting edema. Enio Santos MD Jul 24, 2019 11:40
--- NOTE | 2019-07-24 11:44 | Pulmonology Progress Note ---
Assessment/Plan Problems: (1) Cardiac arrest with successful resuscitation (2) Respiratory failure with hypoxia (3) Sepsis Assessment & Plan: resolved, off abx (4) CARA (acute kidney injury) (5) Anemia (6) Hypertensive heart disease (7) BPH (benign prostatic hyperplasia) (8) DVT (deep venous thrombosis) (9) Parkinson disease (10) Diabetes mellitus (11) Feeding by G-tube Assessment/Plan s/p lithotripsy and uretral stent placement pacemaker on Monday wbc wnl, afebrile bun/creatinine better no new cultures tolerating diet aspiration precaution titrate fio2 to sat of 92% sliding sclae\ Subjective ROS Limited/Unobtainable: No Interval Events: awake, comfortable, s/p cystoscopy and lithotripsy, left uretral stent Allergies: Coded Allergies: PENICILLINS (Verified Allergy, Unknown, 07/04/19) Objective Last 24 Hour Vital Signs Date Time Temp Pulse Resp B/P (MAP) Pulse Ox O2 Delivery O2 Flow Rate FiO2 07/24/19 11:16 87 20 100 Nasal Cannula 2.0 28 66 16 98 07/24/19 09:50 97.2 68 21 145/68 100 Nasal Cannula 3 07/24/19 09:45 68 19 156/69 99 Nasal Cannula 3 07/24/19 09:35 69 20 162/79 100 Simple Mask 6 07/24/19 09:25 67 21 158/69 99 Simple Mask 6 07/24/19 09:17 72 20 99 07/24/19 09:15 68 22 138/57 98 Simple Mask 6 07/24/19 09:10 72 28 145/61 100 Simple Mask 6 07/24/19 09:05 97.0 69 25 146/61 99 Simple Mask 6 07/24/19 09:00 Nasal Cannula 2.0 Nasal Cannula 2.0 07/24/19 07:35 96 Nasal Cannula 2.0 28 07/24/19 04:00 96.4 86 20 124/53 (76) 95 07/24/19 04:00 80 07/24/19 03:07 81 18 100 Nasal Cannula 2.0 28 80 18 97 07/24/19 00:00 96.6 83 20 101/50 (67) 98 07/24/19 00:00 84 07/23/19 23:08 83 18 100 Nasal Cannula 2.0 28 80 18 99 07/23/19 21:00 Nasal Cannula 2.0 Nasal Cannula 2.0 07/23/19 20:00 81 07/23/19 20:00 96.1 78 20 125/67 (86) 99 07/23/19 19:36 73 18 99 Nasal Cannula 2.0 28 70 18 98 07/23/19 19:36 98 Nasal Cannula 2.0 28 07/23/19 16:00 86 07/23/19 16:00 96.8 81 18 114/60 (78) 97 07/23/19 14:57 93 18 98 Nasal Cannula 2.0 28 92 18 96 07/23/19 13:22 117/51 07/23/19 12:00 88 07/23/19 12:00 96.7 87 18 117/51 (73) 98 Intake and Output 07/23/19 07/24/19 19:00 07:00 Intake Total 30 ml Output Total 1200 ml 1600 ml Balance -1200 ml -1570 ml Intake Oral 30 ml Output Urine Total 1200 ml 1600 ml # Voids 3 General Appearance: WD/WN HEENT: normocephalic Respiratory/Chest: chest wall non-tender, lungs clear, normal breath sounds Cardiovascular: normal peripheral pulses, normal rate Genitourinary: normal external genitalia Extremities: no cyanosis Skin: no rash Neurologic/Psychiatric: 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 grossly normal Lymphatic: no neck adenopathy Current Medications Medications (Trade) Dose Ordered Sig/Genoveva Route PRN Reason Start Time Stop Time Status Last Admin Dose Admin Acetaminophen (Tylenol) 650 mg Q6H PRN ORAL Mild Pain/Temp > 100.5 07/19/19 06:30 08/03/19 06:29 Albuterol/ Ipratropium (Albuterol/ Ipratropium) 3 ml Q4H PRN HHN Shortness of Breath 07/20/19 21:00 07/25/19 20:59 Albuterol/ Ipratropium (Albuterol/ Ipratropium) 3 ml Q4HRT HHN 07/22/19 10:30 07/26/19 10:29 07/24/19 11:16 Cefoxitin Sodium 1 gm/Dextrose 55 ml @ 110 mls/hr Q8HR IVPB 07/24/19 14:00 07/31/19 13:59 Dextrose (Dextrose 50%) 25 ml Q30M PRN IV Hypoglycemia 2/14/20 06:30 08/11/19 11:59 Dextrose (Dextrose 50%) 50 ml Q30M PRN IV Hypoglycemia 07/19/19 06:30 08/11/19 11:59 Finasteride (Proscar) 5 mg DAILY ORAL 07/19/19 09:00 08/13/19 08:59 07/24/19 10:02 Hydralazine HCl (Apresoline) 10 mg Q4H PRN IV bp over 160 syst 07/19/19 06:30 08/05/19 06:29 Insulin Aspart (NovoLOG) Q6HR SUBQ 07/19/19 12:00 08/11/19 16:29 07/21/19 12:05 Nitroglycerin (Ntg) 1 patch Q24H TDERMAL 07/19/19 12:30 08/05/19 12:29 07/23/19 13:22 Pantoprazole (Protonix) 40 mg Q12HR IV 07/19/19 09:00 08/04/19 11:14 07/24/19 10:03 Potassium Chloride (K-Dur) 20 meq DAILY GT 07/22/19 09:00 08/21/19 08:59 07/24/19 10:02 Promethazine HCl/ Codeine (Phenergan with Codeine) 5 ml Q4H PRN ORAL For Cough 07/19/19 06:30 08/03/19 06:29 Sodium Chloride 1,000 ml @ 75 mls/hr [id number] IV 07/22/19 16:41 08/21/19 16:40 07/24/19 08:41 Tamsulosin HCl (Flomax) 0.4 mg BEDTIME ORAL 07/19/19 21:00 08/12/19 20:59 07/23/19 20:43 Kathryn Lopez MD Jul 24, 2019 11:44
--- NOTE | 2019-07-24 12:13 | Infectious Diseases Prog Note ---
Assessment/Plan Assessment/Plan Assessment: Shock, SP s/p cardiac arrest 07/05 Obstruct uropathy, L hydrouretenephrosis -07/24 SP cysto, left ureteroscopy, laser litho, ureteral stent, right ESWL -07/12 CT abd/p: -07/12 CT abd/p: Moderate left hydroureteronephrosis secondary to a 1.5 cm left mid to distal ureter stone. Multiple nonobstructive stones within the right kidney. Thickening of the wall the urinary bladder consistent with cystitis. Juan catheter in good position. 10 x 7 cm left inguinal hernia containing bowel. No evidence of obstruction.Trace left pleural effusion. Bilateral posterior basal atelectasis. Sepsis, Sp Probable UTI, sp rx Acute hypoxic respiratory failure, intubated 07/05; extubated 07/11 Aspiration pneumonia vs pneumonitis Gram positive bacteremia- contaminant -07/18 CXR: Mild pulmonary vascular congestion may be present. Correlate clinically.Basal atelectasis versus infiltrate. No change -07/15 CXR:Infiltrate and/or pleural effusion suspected at the left lung base. Mild pulmonary vascular congestion not excluded. Correlate clinically. -07/13 CXR: Improving pulmonary venous congestion with unchanged small left pleural effusion and slight worsening of left basilar infiltrate, indeterminate between atelectasis and pneumonia -07/11 u/a wbc 2-4, nit neg, leuk +3; ucx Neg Bcx Neg -07/06 Bcx Neg -07/05 CXR:Mild CHF -u/a wbc 5-10, nit neg, leuk +2; ucx Neg -Bcx 06/08 dipteriods -sp cx usual resp rupert -CXR: No acute process -influenza sc neg -v. duplex: no DVT -V/q scan:Findings are deemed low probability for pulmonary embolus Fever; low grade, recurrent- SP Mild leukocytosis,recurrent- SP CARA;SP Dm2 dysphagia s/p GT hx of PNA parkinson disease HTN bed bound [facility] resident Plan: -Continue periop Cefoxitin -07/17 SP Ceftriaxone #3 -07/15 SP Flagyl # 11, Cefepime #12 -07/09 SP IV Vancomycin #5 -07/04 SP Levaquin x1 -f/u cx -Monitor CBC/CMP, temperatures -aspiration precautions -GT care -Cards- plan for PPM -cleared from ID perspective for above procedures -Uro f/u - nephro f/u -Cdiff if diarrhea Thank you for this consultation. Will continue to follow along with you. Subjective Allergies: Coded Allergies: PENICILLINS (Verified Allergy, Unknown, 07/04/19) Subjective afebrile no leukocytosis lithotripsy and uteroscopy today Objective Vital Signs Last 24 Hour Vital Signs Date Time Temp Pulse Resp B/P (MAP) Pulse Ox O2 Delivery O2 Flow Rate FiO2 07/24/19 12:00 98.9 86 19 129/59 (82) 95 07/24/19 11:16 87 20 100 Nasal Cannula 2.0 28 66 16 98 07/24/19 09:50 97.2 68 21 145/68 100 Nasal Cannula 3 07/24/19 09:45 68 19 156/69 99 Nasal Cannula 3 07/24/19 09:35 69 20 162/79 100 Simple Mask 6 07/24/19 09:25 67 21 158/69 99 Simple Mask 6 07/24/19 09:17 72 20 99 07/24/19 09:15 68 22 138/57 98 Simple Mask 6 07/24/19 09:10 72 28 145/61 100 Simple Mask 6 07/24/19 09:05 97.0 69 25 146/61 99 Simple Mask 6 07/24/19 09:00 Nasal Cannula 2.0 Nasal Cannula 2.0 07/24/19 07:35 96 Nasal Cannula 2.0 28 07/24/19 04:00 96.4 86 20 124/53 (76) 95 07/24/19 04:00 80 07/24/19 03:07 81 18 100 Nasal Cannula 2.0 28 80 18 97 07/24/19 00:00 96.6 83 20 101/50 (67) 98 07/24/19 00:00 84 07/23/19 23:08 83 18 100 Nasal Cannula 2.0 28 80 18 99 07/23/19 21:00 Nasal Cannula 2.0 Nasal Cannula 2.0 07/23/19 20:00 81 07/23/19 20:00 96.1 78 20 125/67 (86) 99 07/23/19 19:36 73 18 99 Nasal Cannula 2.0 28 70 18 98 07/23/19 19:36 98 Nasal Cannula 2.0 28 07/23/19 16:00 86 07/23/19 16:00 96.8 81 18 114/60 (78) 97 07/23/19 14:57 93 18 98 Nasal Cannula 2.0 28 92 18 96 07/23/19 13:22 117/51 Height (Feet): 5 Height (Inches): 6.00 Weight (Pounds): 176 Objective General Appearance: no distress HEENT: normocephalic, atraumatic Neck: supple Respiratory/Chest: lungs clear Cardiovascular/Chest: normal rate, normal S1 and S2 Abdomen: normal bowel sounds, non tender Extremities: no edema Current Medications Medications (Trade) Dose Ordered Sig/Genoveva Route PRN Reason Start Time Stop Time Status Last Admin Dose Admin Acetaminophen (Tylenol) 650 mg Q6H PRN ORAL Mild Pain/Temp > 100.5 07/19/19 06:30 08/03/19 06:29 Albuterol/ Ipratropium (Albuterol/ Ipratropium) 3 ml Q4H PRN HHN Shortness of Breath 07/20/19 21:00 07/25/19 20:59 Albuterol/ Ipratropium (Albuterol/ Ipratropium) 3 ml Q4HRT HHN 07/22/19 10:30 07/26/19 10:29 07/24/19 11:16 Cefoxitin Sodium 1 gm/Dextrose 55 ml @ 110 mls/hr Q8HR IVPB 07/24/19 14:00 07/31/19 13:59 Dextrose (Dextrose 50%) 25 ml Q30M PRN IV Hypoglycemia 07/19/19 06:30 08/11/19 11:59 Dextrose (Dextrose 50%) 50 ml Q30M PRN IV Hypoglycemia 07/19/19 06:30 08/11/19 11:59 Finasteride (Proscar) 5 mg DAILY ORAL 07/19/19 09:00 08/13/19 08:59 07/24/19 10:02 Hydralazine HCl (Apresoline) 10 mg Q4H PRN IV bp over 160 syst 07/19/19 06:30 08/05/19 06:29 Insulin Aspart (NovoLOG) Q6HR SUBQ 07/19/19 12:00 08/11/19 16:29 07/21/19 12:05 Nitroglycerin (Ntg) 1 patch Q24H TDERMAL 07/19/19 12:30 08/05/19 12:29 07/23/19 13:22 Pantoprazole (Protonix) 40 mg Q12HR IV 07/19/19 09:00 08/04/19 11:14 07/24/19 10:03 Potassium Chloride (K-Dur) 20 meq DAILY GT 07/22/19 09:00 08/21/19 08:59 07/24/19 10:02 Promethazine HCl/ Codeine (Phenergan with Codeine) 5 ml Q4H PRN ORAL For Cough 07/19/19 06:30 08/03/19 06:29 Sodium Chloride 1,000 ml @ 75 mls/hr [id number] IV 07/22/19 16:41 08/21/19 16:40 07/24/19 08:41 Tamsulosin HCl (Flomax) 0.4 mg BEDTIME ORAL 07/19/19 21:00 08/12/19 20:59 07/23/19 20:43 Mirian Page M.D. Jul 24, 2019 12:13
--- NOTE | 2019-07-24 12:49 | NUR ---
CASE MANAGEMENT:REVIEW 07/24/19 SI: SEPSIS. RESP FAILURE. S/P CARDIAC ARREST 98.9 86 19 129/59 95% ON 2L/NC IS: IV NS @75ML/HR IV PROTONIX BID K-DUR GT QD FLOMAX PO QHS NTG PATCH Q24 PROSCAR PO QD ALBUTEROL HHN Q4HRS RTC LITHOTRIPSY TODAY : NOW ON TELEMETRY DCP: FROM [facility]: START IV ABX POST LITHOTRIPSY CONSENT FOR PERMANENT PACEMAKER
--- NOTE | 2019-07-24 13:11 | Nephrology Progress Note ---
Assessment/Plan Problem List: (1) RIA (acute kidney injury) (2) Cardiac arrest with successful resuscitation (3) Respiratory failure with hypoxia (4) Hydronephrosis Assessment patient have Ria due to Low BP and s/p arrest elevated liver enzymes for same reason others: 1. Acute hypoxemic respiratory failure. 2. Hypotension possible sepsis. 3. Diabetes type 2. 4. Parkinson disease. 5. Hypercholesterolemia. 6. EjFx 65% reported 7. Dysphagia. 8. Benign prostatic hypertrophy. Plan s/p Cr 1.6 now wnl Extubated 07/11 Nitro- Phos , K , Mag supplement as needed keep BP above 100 syst Pulm support monitor renal parameters discussed with RN VALENTINA: Moderate left hydronephrosis. Juan catheter. Echogenic right kidney. Suspected medical renal disease. CXR 07/15 IMPRESSION: Infiltrate and/or pleural effusion suspected at the left lung base. Mild pulmonary vascular congestion not excluded. Correlate clinically. Subjective ROS Limited/Unobtainable: No Constitutional: Reports: malaise Objective Objective Last 24 Hour Vital Signs Date Time Temp Pulse Resp B/P (MAP) Pulse Ox O2 Delivery O2 Flow Rate FiO2 07/24/19 12:00 88 07/24/19 12:00 98.9 86 19 129/59 (82) 95 07/24/19 11:16 87 20 100 Nasal Cannula 2.0 28 66 16 98 07/24/19 09:50 97.2 68 21 145/68 100 Nasal Cannula 3 07/24/19 09:45 68 19 156/69 99 Nasal Cannula 3 07/24/19 09:35 69 20 162/79 100 Simple Mask 6 07/24/19 09:25 67 21 158/69 99 Simple Mask 6 07/24/19 09:17 72 20 99 07/24/19 09:15 68 22 138/57 98 Simple Mask 6 07/24/19 09:10 72 28 145/61 100 Simple Mask 6 07/24/19 09:05 97.0 69 25 146/61 99 Simple Mask 6 07/24/19 09:00 Nasal Cannula 2.0 Nasal Cannula 2.0 07/24/19 07:35 96 Nasal Cannula 2.0 28 07/24/19 04:00 96.4 86 20 124/53 (76) 95 07/24/19 04:00 80 07/24/19 03:07 81 18 100 Nasal Cannula 2.0 28 80 18 97 07/24/19 00:00 96.6 83 20 101/50 (67) 98 07/24/19 00:00 84 07/23/19 23:08 83 18 100 Nasal Cannula 2.0 28 80 18 99 07/23/19 21:00 Nasal Cannula 2.0 Nasal Cannula 2.0 07/23/19 20:00 81 07/23/19 20:00 96.1 78 20 125/67 (86) 99 07/23/19 19:36 73 18 99 Nasal Cannula 2.0 28 70 18 98 07/23/19 19:36 98 Nasal Cannula 2.0 28 07/23/19 16:00 86 07/23/19 16:00 96.8 81 18 114/60 (78) 97 07/23/19 14:57 93 18 98 Nasal Cannula 2.0 28 92 18 96 07/23/19 13:22 117/51 Intake and Output 07/23/19 07/24/19 19:00 07:00 Intake Total 30 ml Output Total 1200 ml 1600 ml Balance -1200 ml -1570 ml Intake Oral 30 ml Output Urine Total 1200 ml 1600 ml # Voids 3 Laboratory Tests 07/24/19 12:40: White Blood Count [Pending], Red Blood Count [Pending], Hemoglobin [Pending], Hematocrit [Pending], Mean Corpuscular Volume [Pending], Mean Corpuscular Hemoglobin [Pending], Mean Corpuscular Hemoglobin Concent [Pending], Red Cell Distribution Width [Pending], Platelet Count [Pending], Mean Platelet Volume [ Pending], Neutrophils (%) (Auto) [Pending], Lymphocytes (%) (Auto) [Pending], Monocytes (%) (Auto) [Pending], Eosinophils (%) (Auto) [Pending], Basophils (%) (Auto) [Pending], Sodium Level [Pending], Potassium Level [Pending], Chloride Level [Pending], Carbon Dioxide Level [Pending], Blood Urea Nitrogen [Pending], Creatinine [Pending], Estimat Glomerular Filtration Rate [Pending], Glucose Level [Pending], Calcium Level [Pending] Height (Feet): 5 Height (Inches): 6.00 Weight (Pounds): 176 General Appearance: no apparent distress Cardiovascular: normal rate Respiratory/Chest: decreased breath sounds Abdomen: soft, distended Objective no change Oskar Mohr MD Jul 24, 2019 13:11
[2019-07-24] MEDS: cefOXitin Sod 1 GM in D5W 55 ML IVPB SCH ×2 (13:13→22:05)
[2019-07-24] MEDS: Nitroglycerin Patch 0.4mg TDERMAL SCH (13:13)
[2019-07-24 13:18] LABS: BASOPHILS % (AUTO) 0.7 % (0.0-2.0); EOSINOPHILS % (AUTO) 1.6 % (0.0-3.0); HEMATOCRIT 34.5 % (42.0-52.0); LYMPHOCYTES % (AUTO) 10.1 % (20.0-45.0); MEAN CORPUSCULAR VOLUME 87 FL (80-99); MONOCYTES % (AUTO) 6.1 % (1.0-10.0); NEUTROPHILS % (AUTO) 81.5 % (45.0-75.0); PLATELET COUNT 210 K/UL (150-450); RED BLOOD COUNT 3.96 M/UL (4.70-6.10); RED CELL DISTRIBUTION WIDTH 16.7 % (11.6-14.8)
[2019-07-24 13:38] LABS: ANION GAP 12 mmol/L (5-15); BLOOD UREA NITROGEN 18 mg/dL (7-18); CALCIUM 8.5 MG/DL (8.5-10.1); CARBON DIOXIDE 25 MMOL/L (21-32); CHLORIDE 104 MMOL/L (98-107); CREATININE 0.9 MG/DL (0.55-1.30); POTASSIUM 4.5 MMOL/L (3.5-5.1); SODIUM 141 MMOL/L (136-145)
--- NOTE | 2019-07-24 14:46 | NUR ---
P.T Note: Pt out for surgical procedure. Will follow up tomorrow.
--- NOTE | 2019-07-24 19:09 | Internal Med Progress Note ---
Subjective Date of Service: Jul 24, 2019 Physician Name Shukri Glover Attending Physician Rayshawn Woods MD Current Medications Medications (Trade) Dose Ordered Sig/Genoveva Route PRN Reason Start Time Stop Time Status Last Admin Dose Admin Acetaminophen (Tylenol) 650 mg Q6H PRN ORAL Mild Pain/Temp > 100.5 07/19/19 06:30 08/03/19 06:29 Albuterol/ Ipratropium (Albuterol/ Ipratropium) 3 ml Q4H PRN HHN Shortness of Breath 07/20/19 21:00 07/25/19 20:59 Albuterol/ Ipratropium (Albuterol/ Ipratropium) 3 ml Q4HRT HHN 07/22/19 10:30 07/26/19 10:29 07/24/19 15:38 Cefoxitin Sodium 1 gm/Dextrose 55 ml @ 110 mls/hr Q8HR IVPB 07/24/19 14:00 07/31/19 13:59 07/24/19 13:13 Dextrose (Dextrose 50%) 25 ml Q30M PRN IV Hypoglycemia 07/19/19 06:30 08/11/19 11:59 Dextrose (Dextrose 50%) 50 ml Q30M PRN IV Hypoglycemia 07/19/19 06:30 08/11/19 11:59 Finasteride (Proscar) 5 mg DAILY ORAL 07/19/19 09:00 08/13/19 08:59 07/24/19 10:02 Hydralazine HCl (Apresoline) 10 mg Q4H PRN IV bp over 160 syst 07/19/19 06:30 08/05/19 06:29 Insulin Aspart (NovoLOG) Q6HR SUBQ 07/19/19 12:00 08/11/19 16:29 07/21/19 12:05 Nitroglycerin (Ntg) 1 patch Q24H TDERMAL 07/19/19 12:30 08/05/19 12:29 07/24/19 13:13 Pantoprazole (Protonix) 40 mg Q12HR IV 07/19/19 09:00 08/04/19 11:14 07/24/19 10:03 Potassium Chloride (K-Dur) 20 meq DAILY GT 07/22/19 09:00 08/21/19 08:59 07/24/19 10:02 Promethazine HCl/ Codeine (Phenergan with Codeine) 5 ml Q4H PRN ORAL For Cough 07/19/19 06:30 08/03/19 06:29 Sodium Chloride 1,000 ml @ 75 mls/hr [id number] IV 07/22/19 16:41 08/21/19 16:40 07/24/19 08:41 Tamsulosin HCl (Flomax) 0.4 mg BEDTIME ORAL 07/19/19 21:00 08/12/19 20:59 07/23/19 20:43 Allergies: Coded Allergies: PENICILLINS (Verified Allergy, Unknown, 07/04/19) ROS Limited/Unobtainable: No Constitutional: Reports: no symptoms HEENT: Reports: no symptoms Cardiovascular: Reports: no symptoms Respiratory: Reports: no symptoms Gastrointestinal/Abdominal: Reports: no symptoms Genitourinary: Reports: no symptoms Neurologic/Psychiatric: Reports: no symptoms Subjective 83 YO M admitted with dyspnea, now respiratory failure. Cover for Int Med-Dr Woods. Extubated 07/11/19. S/P cystoscopy/left ureteroscopy/stent/right ESWL 07/24/19 Objective Last Vital Signs Date Time Temp Pulse Resp B/P (MAP) Pulse Ox O2 Delivery O2 Flow Rate FiO2 07/24/19 16:00 98.1 85 19 121/60 (80) 95 07/24/19 15:38 Nasal Cannula 2.0 28 Laboratory Tests Test 07/24/19 12:40 White Blood Count 8.0 K/UL (4.8-10.8) Red Blood Count 3.96 M/UL (4.70-6.10) L Hemoglobin 11.0 G/DL (14.2-18.0) L Hematocrit 34.5 % (42.0-52.0) L Mean Corpuscular Volume 87 FL (80-99) Mean Corpuscular Hemoglobin 27.8 PG (27.0-31.0) Mean Corpuscular Hemoglobin Concent 31.9 G/DL (32.0-36.0) L Red Cell Distribution Width 16.7 % (11.6-14.8) H Platelet Count 210 K/UL (150-450) Mean Platelet Volume 7.4 FL (6.5-10.1) Neutrophils (%) (Auto) 81.5 % (45.0-75.0) H Lymphocytes (%) (Auto) 10.1 % (20.0-45.0) L Monocytes (%) (Auto) 6.1 % (1.0-10.0) Eosinophils (%) (Auto) 1.6 % (0.0-3.0) Basophils (%) (Auto) 0.7 % (0.0-2.0) Sodium Level 141 MMOL/L (136-145) Potassium Level 4.5 MMOL/L (3.5-5.1) Chloride Level 104 MMOL/L (98-107) Carbon Dioxide Level 25 MMOL/L (21-32) Anion Gap 12 mmol/L (5-15) Blood Urea Nitrogen 18 mg/dL (7-18) Creatinine 0.9 MG/DL (0.55-1.30) Estimat Glomerular Filtration Rate > 60 mL/min (>60) Glucose Level 110 MG/DL (74-106) H Calcium Level 8.5 MG/DL (8.5-10.1) Intake and Output 07/23/19 07/24/19 19:00 07:00 Intake Total 30 ml Output Total 1200 ml 1600 ml Balance -1200 ml -1570 ml Intake Oral 30 ml Output Urine Total 1200 ml 1600 ml # Voids 3 Objective PHYSICAL EXAMINATION: GENERAL: The patient is a well-developed and well-nourished male, in moderate respiratory distress. HEENT: Eyes, pupils are equal and responsive to light and accommodation. Extraocular movements are intact. NECK: Supple without lymphadenopathy. CHEST: nasal canula; Coarse breath sounds bilaterally with expiratory wheezes. Otherwise, without crackles. ABDOMINAL: Soft, nontender, and nondistended. Positive bowel sounds. No evidence of hepatosplenomegaly. Currently, no rebound or guarding noted. CARDIOVASCULAR: Tachycardic. Regular rhythm. S1 and S2 are normal without murmurs, rubs, or gallops. GENITOURINARY: Deferred. NEUROLOGICAL: Cranial nerves II to XII are grossly intact without focal deficits. EXTREMITIES: Negative for clubbing, cyanosis, or edema. Assessment/Plan Assessment/Plan ASSESSMENT: This is an 83-year-old male. 1. Dyspnea. 2. Respiratory distress. 3. Diabetes type 2. 4. Parkinson disease. 5. Hypercholesterolemia. 6. Dilated cardiomyopathy. 7. Dysphagia. 8. Benign prostatic hypertrophy. 9. Left Ureteral stone/hydronephrosis TREATMENT: 1. Dyspnea/respiratory distress. A Pulmonary consultation has been obtained with Dr. Kathryn Lopez. The patient is currently extubated. ABX=Ceftriaxone. We will follow recommendations of Pulmonary. 2. Diabetes type 2. 3. Hypercholesterolemia. 4. Dilated cardiomyopathy. 5. Dysphagia. The patient is status post PEG placement. 6. Hypertensive heart disease. 7. Benign prostatic hypertrophy. 8. ID=DR. Page 9. Urology = Dr. Callejas; S/P for cystoscopy/left ureteroscopy/stent/right ESWL 07/24/19 10. cardiology = Shukri Carrillo MD Jul 24, 2019 19:09
--- NOTE | 2019-07-24 19:18 | NUR ---
NURSE NOTES: Received pt from VIRGIL Page. Pt is awake and resting in bed in no acute distress, with HOB elevated, and on oxygen support. Iv site intact. Gtube intact and patent. Juan catheter intact and patent, flowing to gravity. Bed locked in lowest position, bed alarm on, call light within reach. Will continue with plan of care.
[2019-07-24] MEDS: Tamsulosin 0.4mg cap ORAL SCH (21:00)
--- NOTE | 2019-07-24 23:30 | Operative Note - Dictated ---
DATE OF OPERATION: 07/24/2019 PREOPERATIVE DIAGNOSIS: Left ureteral calculus with hydronephrosis as well as right renal calculi. POSTOPERATIVE DIAGNOSIS: Left ureteral calculus with hydronephrosis as well as right renal calculi. PROCEDURE PERFORMED: Cystoscopy with left ureteroscopy, retrograde pyelogram, laser lithotripsy, stone extraction, stent placement, and right shockwave lithotripsy. OPERATING SURGEON: Clayton Callejas M.D. ANESTHESIOLOGIST: Cesar Palafox M.D. ANESTHESIA: General by laryngeal mask. INDICATIONS FOR PROCEDURE: This is a pleasant 83-year-old gentleman. He has been hospitalized with multiple medical issues. He had respiratory failure for which he was previously intubated. He had acute kidney injury, which eventually resolved. He had imaging studies including ultrasound and CT scan, which showed left-sided hydronephrosis secondary to 1.5 centimeter stone in the left mid ureter. He also had multiple right renal calcifications. The patient had clinically improved on the floor and once he was medically cleared, decision was made to proceed with treatment of the stones, and I did discuss this with the patient's who wanted to proceed. Again, he was cleared from medical standpoint and as such he was scheduled for the above-captioned procedure. Possible risks and complications of bleeding, infection, anesthesia, damage to the urethra, bladder, ureter, and need for further surgeries, and PE, stroke, even were discussed with the patient's . No guarantees were given or implied. FINDINGS: The patient had a very large stone in the left mid ureter, which was clear. He also had stones in the right kidney, which were treated. PROCEDURE IN DETAIL: Informed consent was obtained from the patient's . The patient was brought to the operating room and then placed in supine position. After successful general anesthesia was induced, the patient was placed in a modified dorsal lithotomy position, and his genital area was then prepped and draped in usual sterile fashion. The patient did have mild lower extremity contractures and care was taken not to put pressure on his joints. Preoperative IV antibiotics were administered and time-out was performed. At this point, cystoscopy was performed. The urethra was without strictures. Prostate was very irregular and small, minimal obstruction. Bladder showed bullous changes likely from indwelling Juan. Left ureteral orifice was slightly ectopic. The orifice was cannulated with an open-ended catheter and an angled Glidewire was passed. There was some resistance noted at the level of the stone consistent with impaction, although I was able to negotiate the wire up into the kidney. At this point, rigid ureteroscopy was then performed. I was able to gain access to the ureter with the aid of a second wire. The stone was then identified in the mid left ureter. It was a very large stone, faith/gold colored. I did use a 200 micron holmium laser fiber and I sequentially broke the stone down into small possible fragments. This took some time as the stone was large about 1.5 centimeters. I was able to break into small passable fragments, some of which were removed with a az for analysis. Contrast was injected. There appeared to be dilatation of the upper collecting system, which was moderate to severe and I believe the dilatation is chronic. At this point, the ureteroscope was taken out, the safety wire was loaded over cystoscope and a 7-Persian x 24 cm double-J stent was then passed up into the collecting system with fluoroscopic and visual guidance. It appeared to be in good position with a good curl in the kidney as well as the bladder. A small string was left at the bladder end. A Juan catheter was then placed. At this point, the patient was then placed in a supine position. The calcifications in the right kidney were faintly visible with fluoroscopy. A decision was made to treat them while under anesthesia, and used the Dornier Sigma Lithotripter and the stone was focused over the focal point of fluoroscopy and they appeared to be soft stones. A total of 700 shock waves were delivered to the stones. There was intermittent fluoroscopic visualization. The stones appeared to fragment well at which time the procedure was stopped. The patient was awakened and was taken to the recovery room in a stable condition. Blood loss was minimal. No complications. Clayton Callejas M.D. DR: Fred JOB#: [id number] CC:
[2019-07-25] VITALS (7 sets, daily range): BP systolic 100–144; BP diastolic 47–71
[2019-07-25] MEDS: Albuterol/Ipratropium 3ml neb HHN SCH ×6 (03:24→23:55)
[2019-07-25] MEDS: NovoLOG Insulin Flexpen SUBQ SCH ×4 (05:37→17:34)
[2019-07-25] MEDS: cefOXitin Sod 1 GM in D5W 55 ML IVPB SCH ×2 (05:38→12:43)
[2019-07-25 07:33] LABS: BASOPHILS % (AUTO) 0.6 % (0.0-2.0); EOSINOPHILS % (AUTO) 1.9 % (0.0-3.0); HEMOGLOBIN 9.1 G/DL (14.2-18.0); LYMPHOCYTES % (AUTO) 11.2 % (20.0-45.0); MEAN CORPUSCULAR VOLUME 85 FL (80-99); MONOCYTES % (AUTO) 5.9 % (1.0-10.0); NEUTROPHILS % (AUTO) 80.4 % (45.0-75.0); PLATELET COUNT 185 K/UL (150-450); RED BLOOD COUNT 3.27 M/UL (4.70-6.10); RED CELL DISTRIBUTION WIDTH 15.9 % (11.6-14.8); WHITE BLOOD COUNT 8.5 K/UL (4.8-10.8)
--- NOTE | 2019-07-25 07:45 | NUR ---
HAND-OFF: Report given to VIRGIL Anderson. Endorsed plan of care
--- NOTE | 2019-07-25 08:00 | Urology Progress Note ---
Assessment/Plan Assessment/Plan: 1. Left-sided hydronephrosis, poss chronic. 2. Proteinuria. 3. Hematuria. 4. Pyuria. 5. Urinary retention. 6. BPH history. 7. Rule out neurogenic bladder. 8. Mild acute kidney injury, improved. 9. Left ureteral calculus. 10. Right renal calculi. 11. Cystitis. 12. Left inguinal hernia. 13. POD # 1, left ureteroscopy/laser litho/stent, right ESWL monitor clinically maintain nixon hand irrigate PRN cath secured to pt's leg abx prophylaxis monitor renal fxn flomax and proscar added voiding trial soon plan for pacemaker, d/w Dr. Santos d/w pt's d/w Dr. Glover Subjective Allergies: Coded Allergies: PENICILLINS (Verified Allergy, Unknown, 07/04/19) Subjective all noted, looks comfortable Objective Last 24 Hour Vital Signs Date Time Temp Pulse Resp B/P (MAP) Pulse Ox O2 Delivery O2 Flow Rate FiO2 07/25/19 07:29 95 Nasal Cannula 3.0 32 07/25/19 07:29 84 18 98 Nasal Cannula 3.0 32 71 18 95 07/25/19 04:00 78 07/25/19 04:00 98.0 78 18 101/51 (68) 97 07/25/19 03:24 76 16 100 Nasal Cannula 2.0 28 80 16 97 07/25/19 00:00 97.9 85 18 109/71 (84) 95 07/25/19 00:00 85 07/24/19 22:26 79 18 100 Nasal Cannula 2.0 28 77 18 97 07/24/19 21:00 Nasal Cannula 2.0 Nasal Cannula 2.0 07/24/19 20:00 90 07/24/19 20:00 98.3 90 20 141/78 (99) 97 07/24/19 19:53 77 18 99 Nasal Cannula 2.0 28 72 18 96 07/24/19 19:53 95 Nasal Cannula 2.0 28 07/24/19 16:00 98.1 85 19 121/60 (80) 95 07/24/19 16:00 78 07/24/19 15:38 74 18 99 Nasal Cannula 2.0 28 69 18 97 07/24/19 13:13 129/59 07/24/19 12:00 88 07/24/19 12:00 98.9 86 19 129/59 (82) 95 07/24/19 11:16 87 20 100 Nasal Cannula 2.0 28 66 16 98 07/24/19 09:50 97.2 68 21 145/68 100 Nasal Cannula 3 07/24/19 09:45 68 19 156/69 99 Nasal Cannula 3 07/24/19 09:35 69 20 162/79 100 Simple Mask 6 07/24/19 09:25 67 21 158/69 99 Simple Mask 6 07/24/19 09:17 72 20 99 07/24/19 09:15 68 22 138/57 98 Simple Mask 6 07/24/19 09:10 72 28 145/61 100 Simple Mask 6 07/24/19 09:05 97.0 69 25 146/61 99 Simple Mask 6 07/24/19 09:00 Nasal Cannula 2.0 Nasal Cannula 2.0 Intake and Output 07/24/19 07/25/19 19:00 07:00 Intake Total 300 ml Output Total 20 ml 700 ml Balance 280 ml -700 ml IV Total 300 ml Output Urine Total 700 ml Estimated Blood Loss 20 ml Microbiology Date/Time Source Procedure Growth Status 07/11/19 12:00 Blood Blood Culture - Final NO GROWTH AFTER 5 DAYS Complete 07/04/19 10:15 Sputum Gram Stain - Final Complete 07/04/19 10:15 Sputum Culture - Final Nicolle Albicans Usual Respiratory Valery Complete 07/11/19 21:20 Urine,Clean Catch Urine Culture - Final NO GROWTH AFTER 48 HOURS Complete 07/04/19 00:43 Rectum - Final NO CARBAPENEM-RESISTANT ENTEROBACTERI... Complete Current Medications Medications (Trade) Dose Ordered Sig/Genoveva Route PRN Reason Start Time Stop Time Status Last Admin Dose Admin Acetaminophen (Tylenol) 650 mg Q6H PRN ORAL Mild Pain/Temp > 100.5 07/19/19 06:30 08/03/19 06:29 Albuterol/ Ipratropium (Albuterol/ Ipratropium) 3 ml Q4H PRN HHN Shortness of Breath 07/20/19 21:00 07/25/19 20:59 Albuterol/ Ipratropium (Albuterol/ Ipratropium) 3 ml Q4HRT HHN 07/22/19 10:30 07/26/19 10:29 07/25/19 07:19 Cefoxitin Sodium 1 gm/Dextrose 55 ml @ 110 mls/hr Q8HR IVPB 07/24/19 14:00 07/31/19 13:59 07/25/19 05:38 Dextrose (Dextrose 50%) 25 ml Q30M PRN IV Hypoglycemia 07/19/19 06:30 08/11/19 11:59 Dextrose (Dextrose 50%) 50 ml Q30M PRN IV Hypoglycemia 07/19/19 06:30 08/11/19 11:59 Finasteride (Proscar) 5 mg DAILY ORAL 07/19/19 09:00 08/13/19 08:59 07/24/19 10:02 Hydralazine HCl (Apresoline) 10 mg Q4H PRN IV bp over 160 syst 07/19/19 06:30 08/05/19 06:29 Insulin Aspart (NovoLOG) Q6HR SUBQ 07/19/19 12:00 08/11/19 16:29 07/25/19 05:37 Nitroglycerin (Ntg) 1 patch Q24H TDERMAL 07/19/19 12:30 08/05/19 12:29 07/24/19 13:13 Pantoprazole (Protonix) 40 mg Q12HR IV 07/19/19 09:00 08/04/19 11:14 07/24/19 21:00 Potassium Chloride (K-Dur) 20 meq DAILY GT 07/22/19 09:00 08/21/19 08:59 07/24/19 10:02 Promethazine HCl/ Codeine (Phenergan with Codeine) 5 ml Q4H PRN ORAL For Cough 07/19/19 06:30 08/03/19 06:29 Sodium Chloride 1,000 ml @ 75 mls/hr [id number] IV 07/22/19 16:41 08/21/19 16:40 07/24/19 22:05 Tamsulosin HCl (Flomax) 0.4 mg BEDTIME ORAL 07/19/19 21:00 08/12/19 20:59 07/24/19 21:00 Laboratory Tests 07/24/19 12:40: White Blood Count 8.0, Red Blood Count 3.96L, Hemoglobin 11.0L, Hematocrit 34.5L , Mean Corpuscular Volume 87, Mean Corpuscular Hemoglobin 27.8, Mean Corpuscular Hemoglobin Concent 31.9L, Red Cell Distribution Width 16.7H, Platelet Count 210, Mean Platelet Volume 7.4, Neutrophils (%) (Auto) 81.5H, Lymphocytes (%) (Auto) 10.1L, Monocytes (%) (Auto) 6.1, Eosinophils (%) (Auto) 1.6, Basophils (%) (Auto) 0.7, Sodium Level 141, Potassium Level 4.5, Chloride Level 104, Carbon Dioxide Level 25, Anion Gap 12, Blood Urea Nitrogen 18, Creatinine 0.9, Estimat Glomerular Filtration Rate > 60, Glucose Level 110H, Calcium Level 8.5 07/25/19 06:04: White Blood Count 8.5, Red Blood Count 3.27L, Hemoglobin 9.1L, Hematocrit 28.0L , Mean Corpuscular Volume 85, Mean Corpuscular Hemoglobin 27.9, Mean Corpuscular Hemoglobin Concent 32.6, Red Cell Distribution Width 15.9H, Platelet Count 185, Mean Platelet Volume 8.4, Neutrophils (%) (Auto) 80.4H, Lymphocytes (%) (Auto) 11.2L, Monocytes (%) (Auto) 5.9, Eosinophils (%) (Auto) 1.9, Basophils (%) (Auto) 0.6, Sodium Level [Pending], Potassium Level [Pending] , Chloride Level [Pending], Carbon Dioxide Level [Pending], Blood Urea Nitrogen [Pending], Creatinine [Pending], Estimat Glomerular Filtration Rate [Pending], Glucose Level [Pending], Calcium Level [Pending] Height (Feet): 5 Height (Inches): 6.00 Weight (Pounds): 179 Objective exam stable nixon indwelling urine yellow/kristen CT A/P (07/12) noted, KUB noted Clayton Callejas MD Jul 25, 2019 08:00
[2019-07-25 08:17] LABS: ANION GAP 6 mmol/L (5-15); BLOOD UREA NITROGEN 21 mg/dL (7-18); CARBON DIOXIDE 29 MMOL/L (21-32); CHLORIDE 107 MMOL/L (98-107); CREATININE 1.1 MG/DL (0.55-1.30); POTASSIUM 4.4 MMOL/L (3.5-5.1); SODIUM 142 MMOL/L (136-145)
--- NOTE | 2019-07-25 08:31 | 48 Hour Post Anesthesia Eval ---
Post Anesthesia Evaluation Procedure: Cysto,L ureteral stone laser lithotrypsy, stent placement Date of Evaluation: Jul 25, 2019 Time of Evaluation: 08:30 Blood Pressure Systolic: 116 0: 52 Pulse Rate: 68 Respiratory Rate: 20 Temperature (Fahrenheit): 97.6 O2 Sat by Pulse Oximetry: 97 Airway: patent Nausea: No Vomiting: No Pain Intensity: 1 Hydration Status: adequate Cardiopulmonary Status: stable Mental Status/LOC: patient returned to baseline Follow-up Care/Observations: n/a Post-Anesthesia Complications: none Follow-up care needed: N/A Cesar Palafox MD Jul 25, 2019 08:31
[2019-07-25] MEDS: Pantoprazole Inj IV SCH ×2 (08:51→22:36)
--- NOTE | 2019-07-25 09:03 | Nephrology Progress Note ---
Assessment/Plan Problem List: (1) RIA (acute kidney injury) (2) Cardiac arrest with successful resuscitation (3) Respiratory failure with hypoxia (4) Hydronephrosis Assessment patient have Ria due to Low BP and s/p arrest elevated liver enzymes for same reason others: 1. Acute hypoxemic respiratory failure. 2. Hypotension possible sepsis. 3. Diabetes type 2. 4. Parkinson disease. 5. Hypercholesterolemia. 6. EjFx 65% reported 7. Dysphagia. 8. Benign prostatic hypertrophy. Plan s/p Cr 1.6 now wnl Extubated 07/11 Nitro- Phos , K , Mag supplement as needed keep BP above 100 syst Pulm support monitor renal parameters discussed with RN VALENTINA: Moderate left hydronephrosis. Juan catheter. Echogenic right kidney. Suspected medical renal disease. CXR 07/15 IMPRESSION: Infiltrate and/or pleural effusion suspected at the left lung base. Mild pulmonary vascular congestion not excluded. Correlate clinically. Subjective ROS Limited/Unobtainable: No Constitutional: Reports: malaise Objective Objective Last 24 Hour Vital Signs Date Time Temp Pulse Resp B/P (MAP) Pulse Ox O2 Delivery O2 Flow Rate FiO2 07/25/19 08:31 68 20 97 07/25/19 07:29 95 Nasal Cannula 3.0 32 07/25/19 07:29 84 18 98 Nasal Cannula 3.0 32 71 18 95 07/25/19 04:00 78 07/25/19 04:00 98.0 78 18 101/51 (68) 97 07/25/19 03:24 76 16 100 Nasal Cannula 2.0 28 80 16 97 07/25/19 00:00 97.9 85 18 109/71 (84) 95 07/25/19 00:00 85 07/24/19 22:26 79 18 100 Nasal Cannula 2.0 28 77 18 97 07/24/19 21:00 Nasal Cannula 2.0 Nasal Cannula 2.0 07/24/19 20:00 90 07/24/19 20:00 98.3 90 20 141/78 (99) 97 07/24/19 19:53 77 18 99 Nasal Cannula 2.0 28 72 18 96 07/24/19 19:53 95 Nasal Cannula 2.0 28 07/24/19 16:00 98.1 85 19 121/60 (80) 95 07/24/19 16:00 78 07/24/19 15:38 74 18 99 Nasal Cannula 2.0 28 69 18 97 07/24/19 13:13 129/59 07/24/19 12:00 88 07/24/19 12:00 98.9 86 19 129/59 (82) 95 07/24/19 11:16 87 20 100 Nasal Cannula 2.0 28 66 16 98 07/24/19 09:50 97.2 68 21 145/68 100 Nasal Cannula 3 07/24/19 09:45 68 19 156/69 99 Nasal Cannula 3 07/24/19 09:35 69 20 162/79 100 Simple Mask 6 07/24/19 09:25 67 21 158/69 99 Simple Mask 6 07/24/19 09:17 72 20 99 07/24/19 09:15 68 22 138/57 98 Simple Mask 6 07/24/19 09:10 72 28 145/61 100 Simple Mask 6 07/24/19 09:05 97.0 69 25 146/61 99 Simple Mask 6 Intake and Output 07/24/19 07/25/19 19:00 07:00 Intake Total 300 ml Output Total 20 ml 700 ml Balance 280 ml -700 ml IV Total 300 ml Output Urine Total 700 ml Estimated Blood Loss 20 ml Laboratory Tests 07/24/19 12:40: White Blood Count 8.0, Red Blood Count 3.96L, Hemoglobin 11.0L, Hematocrit 34.5L , Mean Corpuscular Volume 87, Mean Corpuscular Hemoglobin 27.8, Mean Corpuscular Hemoglobin Concent 31.9L, Red Cell Distribution Width 16.7H, Platelet Count 210, Mean Platelet Volume 7.4, Neutrophils (%) (Auto) 81.5H, Lymphocytes (%) (Auto) 10.1L, Monocytes (%) (Auto) 6.1, Eosinophils (%) (Auto) 1.6, Basophils (%) (Auto) 0.7, Sodium Level 141, Potassium Level 4.5, Chloride Level 104, Carbon Dioxide Level 25, Anion Gap 12, Blood Urea Nitrogen 18, Creatinine 0.9, Estimat Glomerular Filtration Rate > 60, Glucose Level 110H, Calcium Level 8.5 07/25/19 06:04: White Blood Count 8.5, Red Blood Count 3.27L, Hemoglobin 9.1L, Hematocrit 28.0L , Mean Corpuscular Volume 85, Mean Corpuscular Hemoglobin 27.9, Mean Corpuscular Hemoglobin Concent 32.6, Red Cell Distribution Width 15.9H, Platelet Count 185, Mean Platelet Volume 8.4, Neutrophils (%) (Auto) 80.4H, Lymphocytes (%) (Auto) 11.2L, Monocytes (%) (Auto) 5.9, Eosinophils (%) (Auto) 1.9, Basophils (%) (Auto) 0.6, Sodium Level 142, Potassium Level 4.4, Chloride Level 107, Carbon Dioxide Level 29, Anion Gap 6, Blood Urea Nitrogen 21H, Creatinine 1.1, Estimat Glomerular Filtration Rate > 60, Glucose Level 153H, Calcium Level 8.0L Height (Feet): 5 Height (Inches): 6.00 Weight (Pounds): 179 General Appearance: no apparent distress Cardiovascular: normal rate Respiratory/Chest: decreased breath sounds Abdomen: soft Objective no change Oskar Mohr MD Jul 25, 2019 09:03
--- NOTE | 2019-07-25 10:15 | Infectious Diseases Prog Note ---
Assessment/Plan Assessment/Plan Assessment: Shock, SP s/p cardiac arrest 07/05 Obstruct uropathy, L hydrouretenephrosis -07/24 SP cysto, left ureteroscopy, laser litho, ureteral stent, right ESWL -07/12 CT abd/p: -07/12 CT abd/p: Moderate left hydroureteronephrosis secondary to a 1.5 cm left mid to distal ureter stone. Multiple nonobstructive stones within the right kidney. Thickening of the wall the urinary bladder consistent with cystitis. Juan catheter in good position. 10 x 7 cm left inguinal hernia containing bowel. No evidence of obstruction.Trace left pleural effusion. Bilateral posterior basal atelectasis. Sepsis, Sp Probable UTI, sp rx Acute hypoxic respiratory failure, intubated 07/05; extubated 07/11 Aspiration pneumonia vs pneumonitis Gram positive bacteremia- contaminant -07/18 CXR: Mild pulmonary vascular congestion may be present. Correlate clinically.Basal atelectasis versus infiltrate. No change -07/15 CXR:Infiltrate and/or pleural effusion suspected at the left lung base. Mild pulmonary vascular congestion not excluded. Correlate clinically. -07/13 CXR: Improving pulmonary venous congestion with unchanged small left pleural effusion and slight worsening of left basilar infiltrate, indeterminate between atelectasis and pneumonia -07/11 u/a wbc 2-4, nit neg, leuk +3; ucx Neg Bcx Neg -07/06 Bcx Neg -07/05 CXR:Mild CHF -u/a wbc 5-10, nit neg, leuk +2; ucx Neg -Bcx 06/08 dipteriods -sp cx usual resp rupert -CXR: No acute process -influenza sc neg -v. duplex: no DVT -V/q scan:Findings are deemed low probability for pulmonary embolus Fever; low grade, recurrent- SP Mild leukocytosis,recurrent- SP CARA;SP Dm2 dysphagia s/p GT hx of PNA parkinson disease HTN bed bound [facility] resident Plan: -Continue periop Cefoxitin -07/17 SP Ceftriaxone #3 -07/15 SP Flagyl # 11, Cefepime #12 -07/09 SP IV Vancomycin #5 -07/04 SP Levaquin x1 -f/u cx -Monitor CBC/CMP, temperatures -aspiration precautions -GT care -Cards- plan for PPM -cleared from ID perspective for above procedures -Uro f/u - nephro f/u -Cdiff if diarrhea Thank you for this consultation. Will continue to follow along with you. Subjective Allergies: Coded Allergies: PENICILLINS (Verified Allergy, Unknown, 07/04/19) Subjective afebrile no leukocytosis Objective Vital Signs Last 24 Hour Vital Signs Date Time Temp Pulse Resp B/P (MAP) Pulse Ox O2 Delivery O2 Flow Rate FiO2 07/25/19 08:31 68 20 97 07/25/19 07:29 95 Nasal Cannula 3.0 32 07/25/19 07:29 84 18 98 Nasal Cannula 3.0 32 71 18 95 07/25/19 04:00 78 07/25/19 04:00 98.0 78 18 101/51 (68) 97 07/25/19 03:24 76 16 100 Nasal Cannula 2.0 28 80 16 97 07/25/19 00:00 97.9 85 18 109/71 (84) 95 07/25/19 00:00 85 07/24/19 22:26 79 18 100 Nasal Cannula 2.0 28 77 18 97 07/24/19 21:00 Nasal Cannula 2.0 Nasal Cannula 2.0 07/24/19 20:00 90 07/24/19 20:00 98.3 90 20 141/78 (99) 97 07/24/19 19:53 77 18 99 Nasal Cannula 2.0 28 72 18 96 07/24/19 19:53 95 Nasal Cannula 2.0 28 07/24/19 16:00 98.1 85 19 121/60 (80) 95 07/24/19 16:00 78 07/24/19 15:38 74 18 99 Nasal Cannula 2.0 28 69 18 97 07/24/19 13:13 129/59 07/24/19 12:00 88 07/24/19 12:00 98.9 86 19 129/59 (82) 95 07/24/19 11:16 87 20 100 Nasal Cannula 2.0 28 66 16 98 Height (Feet): 5 Height (Inches): 6.00 Weight (Pounds): 179 Objective General Appearance: no distress HEENT: normocephalic, atraumatic Neck: supple Respiratory/Chest: lungs clear Cardiovascular/Chest: normal rate, normal S1 and S2 Abdomen: normal bowel sounds, non tender Extremities: no edema Laboratory Tests Test 07/24/19 12:40 2/20/20 06:04 White Blood Count 8.0 K/UL (4.8-10.8) 8.5 K/UL (4.8-10.8) Red Blood Count 3.96 M/UL (4.70-6.10) L 3.27 M/UL (4.70-6.10) L Hemoglobin 11.0 G/DL (14.2-18.0) L 9.1 G/DL (14.2-18.0) L Hematocrit 34.5 % (42.0-52.0) L 28.0 % (42.0-52.0) L Mean Corpuscular Volume 87 FL (80-99) 85 FL (80-99) Mean Corpuscular Hemoglobin 27.8 PG (27.0-31.0) 27.9 PG (27.0-31.0) Mean Corpuscular Hemoglobin Concent 31.9 G/DL (32.0-36.0) L 32.6 G/DL (32.0-36.0) Red Cell Distribution Width 16.7 % (11.6-14.8) H 15.9 % (11.6-14.8) H Platelet Count 210 K/UL (150-450) 185 K/UL (150-450) Mean Platelet Volume 7.4 FL (6.5-10.1) 8.4 FL (6.5-10.1) Neutrophils (%) (Auto) 81.5 % (45.0-75.0) H 80.4 % (45.0-75.0) H Lymphocytes (%) (Auto) 10.1 % (20.0-45.0) L 11.2 % (20.0-45.0) L Monocytes (%) (Auto) 6.1 % (1.0-10.0) 5.9 % (1.0-10.0) Eosinophils (%) (Auto) 1.6 % (0.0-3.0) 1.9 % (0.0-3.0) Basophils (%) (Auto) 0.7 % (0.0-2.0) 0.6 % (0.0-2.0) Sodium Level 141 MMOL/L (136-145) 142 MMOL/L (136-145) Potassium Level 4.5 MMOL/L (3.5-5.1) 4.4 MMOL/L (3.5-5.1) Chloride Level 104 MMOL/L (98-107) 107 MMOL/L (98-107) Carbon Dioxide Level 25 MMOL/L (21-32) 29 MMOL/L (21-32) Anion Gap 12 mmol/L (5-15) 6 mmol/L (5-15) Blood Urea Nitrogen 18 mg/dL (7-18) 21 mg/dL (7-18) H Creatinine 0.9 MG/DL (0.55-1.30) 1.1 MG/DL (0.55-1.30) Estimat Glomerular Filtration Rate > 60 mL/min (>60) > 60 mL/min (>60) Glucose Level 110 MG/DL (74-106) H 153 MG/DL (74-106) H Calcium Level 8.5 MG/DL (8.5-10.1) 8.0 MG/DL (8.5-10.1) L Current Medications Medications (Trade) Dose Ordered Sig/Genoveva Route PRN Reason Start Time Stop Time Status Last Admin Dose Admin Acetaminophen (Tylenol) 650 mg Q6H PRN ORAL Mild Pain/Temp > 100.5 07/19/19 06:30 08/03/19 06:29 Albuterol/ Ipratropium (Albuterol/ Ipratropium) 3 ml Q4H PRN HHN Shortness of Breath 07/20/19 21:00 07/25/19 20:59 Albuterol/ Ipratropium (Albuterol/ Ipratropium) 3 ml Q4HRT HHN 07/22/19 10:30 07/26/19 10:29 07/25/19 07:19 Cefoxitin Sodium 1 gm/Dextrose 55 ml @ 110 mls/hr Q8HR IVPB 07/24/19 14:00 07/31/19 13:59 07/25/19 05:38 Dextrose (Dextrose 50%) 25 ml Q30M PRN IV Hypoglycemia 07/19/19 06:30 08/11/19 11:59 Dextrose (Dextrose 50%) 50 ml Q30M PRN IV Hypoglycemia 07/19/19 06:30 08/11/19 11:59 Finasteride (Proscar) 5 mg DAILY ORAL 2/14/20 09:00 08/13/19 08:59 07/25/19 08:51 Hydralazine HCl (Apresoline) 10 mg Q4H PRN IV bp over 160 syst 07/19/19 06:30 08/05/19 06:29 Insulin Aspart (NovoLOG) Q6HR SUBQ 07/19/19 12:00 08/11/19 16:29 07/25/19 05:37 Nitroglycerin (Ntg) 1 patch Q24H TDERMAL 07/19/19 12:30 08/05/19 12:29 07/24/19 13:13 Pantoprazole (Protonix) 40 mg Q12HR IV 07/19/19 09:00 08/04/19 11:14 07/25/19 08:51 Potassium Chloride (K-Dur) 20 meq DAILY GT 07/22/19 09:00 08/21/19 08:59 07/25/19 08:51 Promethazine HCl/ Codeine (Phenergan with Codeine) 5 ml Q4H PRN ORAL For Cough 07/19/19 06:30 08/03/19 06:29 Sodium Chloride 1,000 ml @ 75 mls/hr [id number] IV 07/22/19 16:41 08/21/19 16:40 07/24/19 22:05 Tamsulosin HCl (Flomax) 0.4 mg BEDTIME ORAL 07/19/19 21:00 08/12/19 20:59 07/24/19 21:00 Mirian Page M.D. Jul 25, 2019 10:15
--- NOTE | 2019-07-25 11:49 | Pulmonology Progress Note ---
Assessment/Plan Problems: (1) Cardiac arrest with successful resuscitation (2) Respiratory failure with hypoxia (3) Sepsis Assessment & Plan: resolved, off abx (4) CARA (acute kidney injury) (5) Anemia (6) Hypertensive heart disease (7) BPH (benign prostatic hyperplasia) (8) DVT (deep venous thrombosis) (9) Parkinson disease (10) Diabetes mellitus (11) Feeding by G-tube Assessment/Plan constipated for a few days, Miralax and Senna was added s/p lithotripsy and uretral stent placement pacemaker on Monday wbc wnl, afebrile bun/creatinine better no new cultures tolerating diet aspiration precaution titrate fio2 to sat of 92% sliding scale\ Subjective ROS Limited/Unobtainable: No Constitutional: Reports: no symptoms HEENT: Repors: no symptoms Respiratory: Reports: no symptoms Allergies: Coded Allergies: PENICILLINS (Verified Allergy, Unknown, 07/04/19) Objective Last 24 Hour Vital Signs Date Time Temp Pulse Resp B/P (MAP) Pulse Ox O2 Delivery O2 Flow Rate FiO2 07/25/19 10:49 81 18 99 Nasal Cannula 3.0 32 77 18 96 07/25/19 08:31 68 20 97 07/25/19 08:00 97.6 77 18 100/47 (64) 97 07/25/19 08:00 75 07/25/19 07:29 95 Nasal Cannula 3.0 32 07/25/19 07:29 84 18 98 Nasal Cannula 3.0 32 71 18 95 07/25/19 04:00 78 07/25/19 04:00 98.0 78 18 101/51 (68) 97 07/25/19 03:24 76 16 100 Nasal Cannula 2.0 28 80 16 97 07/25/19 00:00 97.9 85 18 109/71 (84) 95 07/25/19 00:00 85 07/24/19 22:26 79 18 100 Nasal Cannula 2.0 28 77 18 97 07/24/19 21:00 Nasal Cannula 2.0 Nasal Cannula 2.0 07/24/19 20:00 90 07/24/19 20:00 98.3 90 20 141/78 (99) 97 07/24/19 19:53 77 18 99 Nasal Cannula 2.0 28 72 18 96 07/24/19 19:53 95 Nasal Cannula 2.0 28 07/24/19 16:00 98.1 85 19 121/60 (80) 95 07/24/19 16:00 78 07/24/19 15:38 74 18 99 Nasal Cannula 2.0 28 69 18 97 07/24/19 13:13 129/59 07/24/19 12:00 88 07/24/19 12:00 98.9 86 19 129/59 (82) 95 Intake and Output 07/24/19 07/25/19 19:00 07:00 Intake Total 300 ml Output Total 20 ml 700 ml Balance 280 ml -700 ml IV Total 300 ml Output Urine Total 700 ml Estimated Blood Loss 20 ml General Appearance: WD/WN HEENT: normocephalic, atraumatic Respiratory/Chest: chest wall non-tender, lungs clear Cardiovascular: normal peripheral pulses, normal rate Abdomen: normal bowel sounds, soft, non tender Extremities: no cyanosis Neurologic/Psychiatric: manager actuarial II-XII grossly normal Laboratory Tests 07/24/19 12:40: White Blood Count 8.0, Red Blood Count 3.96L, Hemoglobin 11.0L, Hematocrit 34.5L , Mean Corpuscular Volume 87, Mean Corpuscular Hemoglobin 27.8, Mean Corpuscular Hemoglobin Concent 31.9L, Red Cell Distribution Width 16.7H, Platelet Count 210, Mean Platelet Volume 7.4, Neutrophils (%) (Auto) 81.5H, Lymphocytes (%) (Auto) 10.1L, Monocytes (%) (Auto) 6.1, Eosinophils (%) (Auto) 1.6, Basophils (%) (Auto) 0.7, Sodium Level 141, Potassium Level 4.5, Chloride Level 104, Carbon Dioxide Level 25, Anion Gap 12, Blood Urea Nitrogen 18, Creatinine 0.9, Estimat Glomerular Filtration Rate > 60, Glucose Level 110H, Calcium Level 8.5 07/25/19 06:04: White Blood Count 8.5, Red Blood Count 3.27L, Hemoglobin 9.1L, Hematocrit 28.0L , Mean Corpuscular Volume 85, Mean Corpuscular Hemoglobin 27.9, Mean Corpuscular Hemoglobin Concent 32.6, Red Cell Distribution Width 15.9H, Platelet Count 185, Mean Platelet Volume 8.4, Neutrophils (%) (Auto) 80.4H, Lymphocytes (%) (Auto) 11.2L, Monocytes (%) (Auto) 5.9, Eosinophils (%) (Auto) 1.9, Basophils (%) (Auto) 0.6, Sodium Level 142, Potassium Level 4.4, Chloride Level 107, Carbon Dioxide Level 29, Anion Gap 6, Blood Urea Nitrogen 21H, Creatinine 1.1, Estimat Glomerular Filtration Rate > 60, Glucose Level 153H, Calcium Level 8.0L Current Medications Medications (Trade) Dose Ordered Sig/Genoveva Route PRN Reason Start Time Stop Time Status Last Admin Dose Admin Acetaminophen (Tylenol) 650 mg Q6H PRN ORAL Mild Pain/Temp > 100.5 07/19/19 06:30 08/03/19 06:29 Albuterol/ Ipratropium (Albuterol/ Ipratropium) 3 ml Q4H PRN HHN Shortness of Breath 07/20/19 21:00 07/25/19 20:59 Albuterol/ Ipratropium (Albuterol/ Ipratropium) 3 ml Q4HRT HHN 07/22/19 10:30 07/26/19 10:29 07/25/19 10:48 Cefoxitin Sodium 1 gm/Dextrose 55 ml @ 110 mls/hr Q8HR IVPB 07/24/19 14:00 07/31/19 13:59 07/25/19 05:38 Dextrose (Dextrose 50%) 25 ml Q30M PRN IV Hypoglycemia 07/19/19 06:30 08/11/19 11:59 Dextrose (Dextrose 50%) 50 ml Q30M PRN IV Hypoglycemia 07/19/19 06:30 08/11/19 11:59 Finasteride (Proscar) 5 mg DAILY ORAL 07/19/19 09:00 08/13/19 08:59 07/25/19 08:51 Hydralazine HCl (Apresoline) 10 mg Q4H PRN IV bp over 160 syst 07/19/19 06:30 08/05/19 06:29 Insulin Aspart (NovoLOG) Q6HR SUBQ 07/19/19 12:00 08/11/19 16:29 07/25/19 05:37 Nitroglycerin (Ntg) 1 patch Q24H TDERMAL 07/19/19 12:30 08/05/19 12:29 07/24/19 13:13 Pantoprazole (Protonix) 40 mg Q12HR IV 07/19/19 09:00 08/04/19 11:14 07/25/19 08:51 Polyethylene Glycol (Miralax) 17 gm DAILY ORAL 07/25/19 12:00 08/24/19 11:59 Potassium Chloride (K-Dur) 20 meq DAILY GT 07/22/19 09:00 08/21/19 08:59 07/25/19 08:51 Promethazine HCl/ Codeine (Phenergan with Codeine) 5 ml Q4H PRN ORAL For Cough 07/19/19 06:30 08/03/19 06:29 Sennosides (Senokot) 8.6 mg DAILY ORAL 07/25/19 12:00 08/24/19 11:59 Sodium Chloride 1,000 ml @ 75 mls/hr [id number] IV 07/22/19 16:41 08/21/19 16:40 07/24/19 22:05 Tamsulosin HCl (Flomax) 0.4 mg BEDTIME ORAL 07/19/19 21:00 08/12/19 20:59 07/24/19 21:00 Kathryn Lopez MD Jul 25, 2019 11:49
[2019-07-25] MEDS ORDERED: Miralax 17gm pkt ORAL SCH (12:00)
[2019-07-25] MEDS ORDERED: Sennosides 8.6mg tab ORAL SCH (12:00)
[2019-07-25] MEDS: Nitroglycerin Patch 0.4mg TDERMAL SCH (12:44)
--- NOTE | 2019-07-25 13:52 | Anethesia Preoperative Eval ---
Anesthesia Pre-op PMH/ROS General Date of Evaluation: Jul 25, 2019 Time of Evaluation: 11:39 Anesthesiologist: Aliya ASA Score: ASA 4 Mallampati Score Class I : Soft palate, uvula, fauces, pillars visible Class II: Soft palate, uvula, fauces visible Class III: Soft palate, base of uvula visible Class IV: Only hard plate visible Mallampati Classification: Class III Surgeon: Tom Diagnosis: Atrial Fibrillation with RVR Surgical Procedure: Permanent Pacemaker Anesthesia History: none Family History: no anesthesia problems Allergies: Coded Allergies: PENICILLINS (Verified Allergy, Unknown, 07/04/19) Medications: see eMAR Patient NPO?: Yes Past Medical History Cardiovascular: Reports: HTN, CAD, VA, arrhythmia - A Fib RVR Pulmonary: Reports: other - Ventillatory Failure Gastrointestinal/Genitourinary: Reports: GERD, CRI, other - Dysphagia, Feeding Tube in Place Neurologic/Psychiatric: Reports: dementia, other - Parkinsons Endocrine: Reports: DM, hypothyroidism HEENT: Reports: cataract (L), cataract (R) Hematology/Immune: Reports: anemia Musculoskeletal/Integumentary: Reports: DJD, other PSxH Narrative: Cysto, Lithotripsy Anesthesia Pre-op Phys. Exam Physician Exam Last Vital Signs Date Time Temp Pulse Resp B/P (MAP) Pulse Ox O2 Delivery O2 Flow Rate FiO2 07/25/19 12:44 120/58 07/25/19 12:00 97.3 83 19 99 07/25/19 10:49 Nasal Cannula 3.0 32 Constitutional: NAD Neurologic: other - Unable to Obtain Cardiovascular: other - A Fib RVR Respiratory: other - Bilateral Rhonci and Crackles Airway Exam Mallampati Score: Class III MO: limited Neck: Stiff ROM: limited Teeth: missing Dentures: upper, lower Anesthesia Pre-op A/P Labs Hematology Test 07/25/19 06:04 White Blood Count 8.5 K/UL (4.8-10.8) Red Blood Count 3.27 M/UL (4.70-6.10) L Hemoglobin 9.1 G/DL (14.2-18.0) L Hematocrit 28.0 % (42.0-52.0) L Mean Corpuscular Volume 85 FL (80-99) Mean Corpuscular Hemoglobin 27.9 PG (27.0-31.0) Mean Corpuscular Hemoglobin Concent 32.6 G/DL (32.0-36.0) Red Cell Distribution Width 15.9 % (11.6-14.8) H Platelet Count 185 K/UL (150-450) Mean Platelet Volume 8.4 FL (6.5-10.1) Neutrophils (%) (Auto) 80.4 % (45.0-75.0) H Lymphocytes (%) (Auto) 11.2 % (20.0-45.0) L Monocytes (%) (Auto) 5.9 % (1.0-10.0) Eosinophils (%) (Auto) 1.9 % (0.0-3.0) Basophils (%) (Auto) 0.6 % (0.0-2.0) Chemistry Test 07/25/19 06:04 Sodium Level 142 MMOL/L (136-145) Potassium Level 4.4 MMOL/L (3.5-5.1) Chloride Level 107 MMOL/L (98-107) Carbon Dioxide Level 29 MMOL/L (21-32) Anion Gap 6 mmol/L (5-15) Blood Urea Nitrogen 21 mg/dL (7-18) H Creatinine 1.1 MG/DL (0.55-1.30) Estimat Glomerular Filtration Rate > 60 mL/min (>60) Glucose Level 153 MG/DL (74-106) H Calcium Level 8.0 MG/DL (8.5-10.1) L Risk Assessment & Plan Assessment: ASA 4 Plan: GA Status Change Before Surgery: No Pre-Antibiotics Drug: Gary Sherwood MD Jul 25, 2019 13:52
[2019-07-25] MEDS ORDERED: Promethazine/Codeine 5ml UD GT PRN (16:00)
[2019-07-25] MEDS ORDERED: Acetaminophen 650mg/20.3ml GT PRN (16:15)
--- NOTE | 2019-07-25 16:18 | NUR ---
NURSE NOTES:WOUND CARE FOLLOW-UP NOTES:Dark skin tone with areas of hyperpigmentation without erythema or induration,but with dry peeling skin noted to Sacral area. Pt denied pain or tenderness when palpated. Both heels are soft but blanchable. No new skin concerns for skin breakdown noted. All wound prevention protocols continued as care-planned. Tx.plan: Apply Moisture Barrier Paste to buttocks. Cover with Optifoam drsg. Change every 3 days and prn. Apply Cavilon Skin Barrier to both heels. Cover each heel with Optifoam drsg. Change every 7 days and prn. APM/MIKE Mattress overlay. Off-load heels with pillow. Reposition at least every 2hours or as tolerated.
--- NOTE | 2019-07-25 17:05 | Cardiac Electrophysiology PN ---
Assessment/Plan Assessment/Plan 1. Status post bradycardic arrest off any sinus node or AV destinee blocking agents. 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 Likely precipitated by respiratory failure Non infectional. Now again going to atrial fib with RVR. Risky to add AVN blcoker in view of hx of hillary arrest. Obtained consent from for pacer to allow us adding AVN fredrick. Scheduled for PPM tomorrow at 9.30. DR Page from ID cleared patient 2. NSTEMI. Due to arrest 3. Respiratory failure. D. Dimer positive. VQ scan pre code was low probability. Extubated 07/11/19 4. Hypotension. Improved with IV fluid 5. Dehydration and hyperatremia, resolved 6. S/P PEG 7. Diabetes. 8. Benign prostatic hypertrophy.FU Dr. Callejas. S/P CT abdomen that showed Left hydronephrosis. Tolerated Cystoscopy, Ureteroscopy and Laser lithotripsy and ureteral stent by Dr Callejas Alert with no CP. EF 65% 9. Full code. DW RN, daughter and Dr. Callejas Subjective Subjective In atrial fib with controlled S/P Cystoscopy for Left hydronephrosis and lithotripsy by Dr. Callejas yesteday Objective Last 24 Hour Vital Signs Date Time Temp Pulse Resp B/P (MAP) Pulse Ox O2 Delivery O2 Flow Rate FiO2 07/25/19 15:34 66 18 100 Nasal Cannula 3.0 32 73 18 95 07/25/19 12:44 120/58 07/25/19 12:00 97.3 83 19 120/58 (78) 99 07/25/19 12:00 84 07/25/19 10:49 81 18 99 Nasal Cannula 3.0 32 77 18 96 07/25/19 08:31 68 20 97 07/25/19 08:00 97.6 77 18 100/47 (64) 97 07/25/19 08:00 75 07/25/19 07:29 95 Nasal Cannula 3.0 32 07/25/19 07:29 84 18 98 Nasal Cannula 3.0 32 71 18 95 07/25/19 04:00 78 07/25/19 04:00 98.0 78 18 101/51 (68) 97 07/25/19 03:24 76 16 100 Nasal Cannula 2.0 28 80 16 97 07/25/19 00:00 97.9 85 18 109/71 (84) 95 07/25/19 00:00 85 07/24/19 22:26 79 18 100 Nasal Cannula 2.0 28 77 18 97 07/24/19 21:00 Nasal Cannula 2.0 Nasal Cannula 2.0 07/24/19 20:00 90 07/24/19 20:00 98.3 90 20 141/78 (99) 97 07/24/19 19:53 77 18 99 Nasal Cannula 2.0 28 72 18 96 07/24/19 19:53 95 Nasal Cannula 2.0 28 Intake and Output 07/24/19 07/25/19 19:00 07:00 Intake Total 300 ml Output Total 20 ml 700 ml Balance 280 ml -700 ml IV Total 300 ml Output Urine Total 700 ml Estimated Blood Loss 20 ml Laboratory Tests Test 07/25/19 06:04 White Blood Count 8.5 K/UL (4.8-10.8) Red Blood Count 3.27 M/UL (4.70-6.10) L Hemoglobin 9.1 G/DL (14.2-18.0) L Hematocrit 28.0 % (42.0-52.0) L Mean Corpuscular Volume 85 FL (80-99) Mean Corpuscular Hemoglobin 27.9 PG (27.0-31.0) Mean Corpuscular Hemoglobin Concent 32.6 G/DL (32.0-36.0) Red Cell Distribution Width 15.9 % (11.6-14.8) H Platelet Count 185 K/UL (150-450) Mean Platelet Volume 8.4 FL (6.5-10.1) Neutrophils (%) (Auto) 80.4 % (45.0-75.0) H Lymphocytes (%) (Auto) 11.2 % (20.0-45.0) L Monocytes (%) (Auto) 5.9 % (1.0-10.0) Eosinophils (%) (Auto) 1.9 % (0.0-3.0) Basophils (%) (Auto) 0.6 % (0.0-2.0) Sodium Level 142 MMOL/L (136-145) Potassium Level 4.4 MMOL/L (3.5-5.1) Chloride Level 107 MMOL/L (98-107) Carbon Dioxide Level 29 MMOL/L (21-32) Anion Gap 6 mmol/L (5-15) Blood Urea Nitrogen 21 mg/dL (7-18) H Creatinine 1.1 MG/DL (0.55-1.30) Estimat Glomerular Filtration Rate > 60 mL/min (>60) Glucose Level 153 MG/DL (74-106) H Calcium Level 8.0 MG/DL (8.5-10.1) L Objective HEAD AND NECK: Mild JVD. LUNGS: Decreased breath sounds. CARDIOVASCULAR: IRRR tachy. No G/R/M ABDOMEN: Status post G-tube. EXTREMITIES: No pitting edema. Enio Santos MD Jul 25, 2019 17:05
--- NOTE | 2019-07-25 19:00 | Internal Med Progress Note ---
Subjective Date of Service: Jul 25, 2019 Physician Name Shukri Glover Attending Physician Rayshawn Woods MD Current Medications Medications (Trade) Dose Ordered Sig/Genoveva Route PRN Reason Start Time Stop Time Status Last Admin Dose Admin Acetaminophen (Tylenol) 650 mg Q6H PRN GT Mild Pain/Temp > 100.5 07/25/19 16:15 08/24/19 16:14 Albuterol/ Ipratropium (Albuterol/ Ipratropium) 3 ml Q4H PRN HHN Shortness of Breath 07/20/19 21:00 07/25/19 20:59 Albuterol/ Ipratropium (Albuterol/ Ipratropium) 3 ml Q4HRT HHN 07/22/19 10:30 07/26/19 10:29 07/25/19 15:24 Cefoxitin Sodium 1 gm/Sodium Chloride 55 ml @ 110 mls/hr Q8HR IVPB 07/25/19 22:00 08/01/19 21:59 Dextrose (Dextrose 50%) 25 ml Q30M PRN IV Hypoglycemia 07/19/19 06:30 08/11/19 11:59 Dextrose (Dextrose 50%) 50 ml Q30M PRN IV Hypoglycemia 07/19/19 06:30 08/11/19 11:59 Finasteride (Proscar) 5 mg DAILY ORAL 07/19/19 09:00 08/13/19 08:59 07/25/19 08:51 Hydralazine HCl (Apresoline) 10 mg Q4H PRN IV bp over 160 syst 07/19/19 06:30 08/05/19 06:29 Insulin Aspart (NovoLOG) Q6HR SUBQ 07/19/19 12:00 08/11/19 16:29 07/25/19 13:27 Nitroglycerin (Ntg) 1 patch Q24H TDERMAL 07/19/19 12:30 08/05/19 12:29 07/25/19 12:44 Pantoprazole (Protonix) 40 mg Q12HR IV 07/19/19 09:00 08/04/19 11:14 07/25/19 08:51 Polyethylene Glycol (Miralax) 17 gm DAILY GT 07/26/19 09:00 08/24/19 11:59 Potassium Chloride (K-Dur) 20 meq DAILY GT 07/22/19 09:00 08/21/19 08:59 07/25/19 08:51 Promethazine HCl/ Codeine (Phenergan with Codeine) 5 ml Q4H PRN GT For Cough 07/25/19 16:00 08/03/19 06:29 Sennosides (Senokot) 8.6 mg DAILY GT 07/26/19 09:00 08/24/19 11:59 Sodium Chloride 1,000 ml @ 75 mls/hr [id number] IV 07/22/19 16:41 08/21/19 16:40 07/25/19 17:30 Tamsulosin HCl (Flomax) 0.4 mg BEDTIME ORAL 07/19/19 21:00 08/12/19 20:59 07/24/19 21:00 Allergies: Coded Allergies: PENICILLINS (Verified Allergy, Unknown, 07/04/19) ROS Limited/Unobtainable: Yes Subjective 83 YO M admitted with dyspnea, now respiratory failure. Cover for Int Med-Dr Woods. Extubated 07/11/19. S/P cystoscopy/left ureteroscopy/stent/right ESWL 07/24/19. Pacemaker implantation scheduled for Monday07/26/19. Objective Last Vital Signs Date Time Temp Pulse Resp B/P (MAP) Pulse Ox O2 Delivery O2 Flow Rate FiO2 07/25/19 17:36 Nasal Cannula 2.0 Nasal Cannula 2.0 07/25/19 16:00 98.2 75 17 110/58 (75) 98 07/25/19 15:34 32 Laboratory Tests Test 07/25/19 06:04 White Blood Count 8.5 K/UL (4.8-10.8) Red Blood Count 3.27 M/UL (4.70-6.10) L Hemoglobin 9.1 G/DL (14.2-18.0) L Hematocrit 28.0 % (42.0-52.0) L Mean Corpuscular Volume 85 FL (80-99) Mean Corpuscular Hemoglobin 27.9 PG (27.0-31.0) Mean Corpuscular Hemoglobin Concent 32.6 G/DL (32.0-36.0) Red Cell Distribution Width 15.9 % (11.6-14.8) H Platelet Count 185 K/UL (150-450) Mean Platelet Volume 8.4 FL (6.5-10.1) Neutrophils (%) (Auto) 80.4 % (45.0-75.0) H Lymphocytes (%) (Auto) 11.2 % (20.0-45.0) L Monocytes (%) (Auto) 5.9 % (1.0-10.0) Eosinophils (%) (Auto) 1.9 % (0.0-3.0) Basophils (%) (Auto) 0.6 % (0.0-2.0) Sodium Level 142 MMOL/L (136-145) Potassium Level 4.4 MMOL/L (3.5-5.1) Chloride Level 107 MMOL/L (98-107) Carbon Dioxide Level 29 MMOL/L (21-32) Anion Gap 6 mmol/L (5-15) Blood Urea Nitrogen 21 mg/dL (7-18) H Creatinine 1.1 MG/DL (0.55-1.30) Estimat Glomerular Filtration Rate > 60 mL/min (>60) Glucose Level 153 MG/DL (74-106) H Calcium Level 8.0 MG/DL (8.5-10.1) L Intake and Output 07/24/19 07/25/19 19:00 07:00 Intake Total 300 ml Output Total 20 ml 700 ml Balance 280 ml -700 ml IV Total 300 ml Output Urine Total 700 ml Estimated Blood Loss 20 ml Objective PHYSICAL EXAMINATION: GENERAL: The patient is a well-developed and well-nourished male, in moderate respiratory distress. HEENT: Eyes, pupils are equal and responsive to light and accommodation. Extraocular movements are intact. NECK: Supple without lymphadenopathy. CHEST: nasal canula; Coarse breath sounds bilaterally with expiratory wheezes. Otherwise, without crackles. ABDOMINAL: Soft, nontender, and nondistended. Positive bowel sounds. No evidence of hepatosplenomegaly. Currently, no rebound or guarding noted. CARDIOVASCULAR: Tachycardic. Regular rhythm. S1 and S2 are normal without murmurs, rubs, or gallops. GENITOURINARY: Deferred. NEUROLOGICAL: Cranial nerves II to XII are grossly intact without focal deficits. EXTREMITIES: Negative for clubbing, cyanosis, or edema. Assessment/Plan Assessment/Plan ASSESSMENT: This is an 83-year-old male. 1. Dyspnea. 2. Respiratory distress. 3. Diabetes type 2. 4. Parkinson disease. 5. Hypercholesterolemia. 6. Dilated cardiomyopathy. 7. Dysphagia. 8. Benign prostatic hypertrophy. 9. 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 NSTEMI TREATMENT: 1. Dyspnea/respiratory distress. A Pulmonary consultation has been obtained with Dr. Kathryn Lopez. The patient is currently extubated. ABX=Ceftriaxone. We will follow recommendations of Pulmonary. 2. Diabetes type 2. 3. Hypercholesterolemia. 4. Dilated cardiomyopathy. 5. Dysphagia. The patient is status post PEG placement. 6. Hypertensive heart disease. 7. Benign prostatic hypertrophy. 8. ID=DR. Page 9. Urology = Dr. Callejas; S/P for cystoscopy/left ureteroscopy/stent/right ESWL 07/24/19 10. cardiology = Dr Santos 11. Pacemaker implantation scheduled Mon07/26/19 Shukri Glover MD Jul 25, 2019 19:00
--- NOTE | 2019-07-25 19:30 | NUR ---
NURSE NOTES: Received patient from Justin HERMAN. Patient in bed, on 2L NC, no signs of respiratory distress. Juan catheter intact. PIV pulled out. No residual from gtube, on vital AF 1.2 at 60ml/hr. Bilateral scds on. Bed in low position, locked, bed alarm on, call light within reach.
--- NOTE | 2019-07-25 21:00 | NUR ---
NURSE NOTES: Still unable to obtain iv access. 2100 iv meds held.
[2019-07-25] MEDS: Tamsulosin 0.4mg cap ORAL SCH (21:39)
--- NOTE | 2019-07-25 22:36 | NUR ---
NURSE NOTES: obtained iv access, 2100 iv meds administered. Resume normal saline at 75ml/hr.
[2019-07-25] MEDS: cefOXitin Sod 1 GM in NS 55 ML IVPB SCH (22:37)
--- NOTE | 2019-07-25 23:57 | NUR ---
NURSE NOTES: NPO p midnight for pacemaker placement in AM. Tube feeding off. Gtube flushed. Blood sugar 132. No insulin given.
[2019-07-26] VITALS (11 sets, daily range): BP systolic 110–153; BP diastolic 62–76
[2019-07-26] MEDS: Albuterol/Ipratropium 3ml neb HHN SCH ×3 (03:24→23:27)
[2019-07-26] MEDS: cefOXitin Sod 1 GM in NS 55 ML IVPB SCH ×3 (05:26→21:11)
[2019-07-26] MEDS: NovoLOG Insulin Flexpen SUBQ SCH ×4 (05:35→18:00)
[2019-07-26 07:23] LABS: BASOPHILS % (AUTO) 0.6 % (0.0-2.0); EOSINOPHILS % (AUTO) 3.5 % (0.0-3.0); HEMATOCRIT 27.3 % (42.0-52.0); HEMOGLOBIN 8.8 G/DL (14.2-18.0); LYMPHOCYTES % (AUTO) 16.7 % (20.0-45.0); MEAN CORPUSCULAR VOLUME 86 FL (80-99); NEUTROPHILS % (AUTO) 72.3 % (45.0-75.0); PLATELET COUNT 170 K/UL (150-450); RED BLOOD COUNT 3.18 M/UL (4.70-6.10); WHITE BLOOD COUNT 6.6 K/UL (4.8-10.8)
[2019-07-26 07:59] LABS: ALANINE AMINOTRANSFERASE 33 U/L (12-78); ALBUMIN 2.5 G/DL (3.4-5.0); ALBUMIN/GLOBULIN RATIO 0.6 (1.0-2.7); ALKALINE PHOSPHATASE 113 U/L (46-116); ANION GAP 12 mmol/L (5-15); ASPARTATE AMINO TRANSFERASE 18 U/L (15-37); BILIRUBIN,TOTAL 0.4 MG/DL (0.2-1.0); BLOOD UREA NITROGEN 19 mg/dL (7-18); CALCIUM 8.1 MG/DL (8.5-10.1); CARBON DIOXIDE 25 MMOL/L (21-32); CHLORIDE 107 MMOL/L (98-107); PHOSPHORUS 2.7 MG/DL (2.5-4.9); POTASSIUM 4.1 MMOL/L (3.5-5.1); SODIUM 144 MMOL/L (136-145)
--- NOTE | 2019-07-26 08:08 | Urology Progress Note ---
Assessment/Plan Assessment/Plan: 1. Left-sided hydronephrosis, poss chronic. 2. Proteinuria. 3. Hematuria. 4. Pyuria. 5. Urinary retention. 6. BPH history. 7. Rule out neurogenic bladder. 8. Mild acute kidney injury, improved. 9. Left ureteral calculus. 10. Right renal calculi. 11. Cystitis. 12. Left inguinal hernia. 13. POD # 2, left ureteroscopy/laser litho/stent, right ESWL monitor clinically maintain nixon hand irrigate PRN cath secured to pt's leg abx prophylaxis monitor renal fxn flomax and proscar added voiding trial soon plan for pacemaker Subjective Allergies: Coded Allergies: PENICILLINS (Verified Allergy, Unknown, 07/04/19) Subjective all noted, looks comfortable Objective Last 24 Hour Vital Signs Date Time Temp Pulse Resp B/P (MAP) Pulse Ox O2 Delivery O2 Flow Rate FiO2 07/26/19 07:47 80 19 98 Nasal Cannula 3.0 32 80 19 98 07/26/19 04:00 78 07/26/19 04:00 97.9 81 20 110/62 (78) 97 07/26/19 03:24 78 18 100 Nasal Cannula 3.0 32 79 18 95 07/26/19 00:00 74 07/25/19 23:58 98.1 79 20 144/68 (93) 97 07/25/19 23:55 77 18 100 Nasal Cannula 3.0 32 74 18 97 07/25/19 21:11 79 18 97 Nasal Cannula 3.0 32 07/25/19 21:00 Nasal Cannula 2.0 Nasal Cannula 2.0 07/25/19 21:00 Nasal Cannula 2.0 Nasal Cannula 2.0 07/25/19 20:00 82 07/25/19 20:00 98.2 81 20 138/55 (82) 97 07/25/19 19:54 96 Nasal Cannula 3.0 32 07/25/19 19:54 74 18 100 Nasal Cannula 3.0 32 71 18 96 07/25/19 17:36 Nasal Cannula 2.0 Nasal Cannula 2.0 07/25/19 16:00 98.2 75 17 110/58 (75) 98 07/25/19 16:00 83 07/25/19 15:34 66 18 100 Nasal Cannula 3.0 32 73 18 95 07/25/19 12:44 120/58 07/25/19 12:00 97.3 83 19 120/58 (78) 99 07/25/19 12:00 84 07/25/19 10:49 81 18 99 Nasal Cannula 3.0 32 77 18 96 07/25/19 09:00 Nasal Cannula 2.0 Nasal Cannula 2.0 07/25/19 08:31 68 20 97 Intake and Output 07/25/19 07/26/19 19:00 07:00 Intake Total 720 ml 745 ml Output Total 1000 ml 900 ml Balance -280 ml -155 ml IV Total 745 ml Tube Feeding 720 ml Output Urine Total 1000 ml 900 ml Microbiology Date/Time Source Procedure Growth Status 07/11/19 12:00 Blood Blood Culture - Final NO GROWTH AFTER 5 DAYS Complete 07/04/19 10:15 Sputum Gram Stain - Final Complete 07/04/19 10:15 Sputum Culture - Final Nicolle Albicans Usual Respiratory Valery Complete 07/11/19 21:20 Urine,Clean Catch Urine Culture - Final NO GROWTH AFTER 48 HOURS Complete 07/04/19 00:43 Rectum - Final NO CARBAPENEM-RESISTANT ENTEROBACTERI... Complete Current Medications Medications (Trade) Dose Ordered Sig/Genoveva Route PRN Reason Start Time Stop Time Status Last Admin Dose Admin Acetaminophen (Tylenol) 650 mg Q6H PRN GT Mild Pain/Temp > 100.5 07/25/19 16:15 08/24/19 16:14 Albuterol/ Ipratropium (Albuterol/ Ipratropium) 3 ml Q4HRT HHN 07/22/19 10:30 07/26/19 10:29 07/26/19 07:47 Cefoxitin Sodium 1 gm/Sodium Chloride 55 ml @ 110 mls/hr Q8HR IVPB 07/25/19 22:00 08/01/19 21:59 07/26/19 05:26 Dextrose (Dextrose 50%) 25 ml Q30M PRN IV Hypoglycemia 07/19/19 06:30 08/11/19 11:59 Dextrose (Dextrose 50%) 50 ml Q30M PRN IV Hypoglycemia 07/19/19 06:30 08/11/19 11:59 Finasteride (Proscar) 5 mg DAILY ORAL 07/19/19 09:00 08/13/19 08:59 07/25/19 08:51 Hydralazine HCl (Apresoline) 10 mg Q4H PRN IV bp over 160 syst 07/19/19 06:30 08/05/19 06:29 Insulin Aspart (NovoLOG) Q6HR SUBQ 07/19/19 12:00 08/11/19 16:29 07/25/19 13:27 Nitroglycerin (Ntg) 1 patch Q24H TDERMAL 07/19/19 12:30 08/05/19 12:29 07/25/19 12:44 Pantoprazole (Protonix) 40 mg Q12HR IV 07/19/19 09:00 08/04/19 11:14 07/25/19 22:36 Polyethylene Glycol (Miralax) 17 gm DAILY GT 07/26/19 09:00 08/24/19 11:59 Potassium Chloride (K-Dur) 20 meq DAILY GT 07/22/19 09:00 08/21/19 08:59 07/25/19 08:51 Promethazine HCl/ Codeine (Phenergan with Codeine) 5 ml Q4H PRN GT For Cough 07/25/19 16:00 08/03/19 06:29 Sennosides (Senokot) 8.6 mg DAILY GT 07/26/19 09:00 08/24/19 11:59 Sodium Chloride 1,000 ml @ 75 mls/hr [id number] IV 07/22/19 16:41 08/21/19 16:40 07/25/19 17:30 Tamsulosin HCl (Flomax) 0.4 mg BEDTIME ORAL 07/19/19 21:00 08/12/19 20:59 07/25/19 21:39 Laboratory Tests 07/26/19 06:09: White Blood Count 6.6, Red Blood Count 3.18L, Hemoglobin 8.8L, Hematocrit 27.3L , Mean Corpuscular Volume 86, Mean Corpuscular Hemoglobin 27.7, Mean Corpuscular Hemoglobin Concent 32.4, Red Cell Distribution Width 16.0H, Platelet Count 170, Mean Platelet Volume 6.7, Neutrophils (%) (Auto) 72.3, Lymphocytes (%) (Auto) 16.7L, Monocytes (%) (Auto) 7.0, Eosinophils (%) (Auto) 3.5H, Basophils (%) (Auto) 0.6, Erythrocyte Sedimentation Rate [Pending], Sodium Level 144, Potassium Level 4.1, Chloride Level 107, Carbon Dioxide Level 25, Anion Gap 12, Blood Urea Nitrogen 19H, Creatinine 1.0, Estimat Glomerular Filtration Rate > 60, Glucose Level 100, Calcium Level 8.1L, Phosphorus Level 2.7, Magnesium Level 1.6L, Total Bilirubin 0.4, Aspartate Amino Transf (AST/SGOT ) 18, Alanine Aminotransferase (ALT/SGPT) 33, Alkaline Phosphatase 113, C- Reactive Protein, Quantitative 3.7H, Total Protein 6.5, Albumin 2.5L, Globulin 4.0, Albumin/Globulin Ratio 0.6L Height (Feet): 5 Height (Inches): 6.00 Weight (Pounds): 185 Objective exam stable nixon indwelling urine yellow/kristen CT A/P (07/12) noted, KUB noted Clayton Callejas MD Jul 26, 2019 08:07
[2019-07-26] MEDS ORDERED: Lidocaine 1% Plain 30 ml INJ ONE ×2 (09:18→09:24)
[2019-07-26] MEDS ORDERED: Isovue-M 300 15ml INJ ONE (09:18)
[2019-07-26] MEDS ORDERED: Propofol 200mg/20ml IV ONE (09:24)
--- NOTE | 2019-07-26 09:26 | Cardiac Electrophysiology PN ---
Assessment/Plan Assessment/Plan 1. Status post bradycardic arrest off any sinus node or AV destinee blocking agents. 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 Likely precipitated by respiratory failure Non infectional. Now again going to atrial fib with RVR. Risky to add AVN blcoker in view of hx of hillary arrest. Obtained consent from for pacer to allow us adding AVN fredrick. NPO for PPM tomorrow at 9.[address] Page from ID cleared patient 2. NSTEMI. Due to arrest 3. Respiratory failure. D. Dimer positive. VQ scan pre code was low probability. Extubated 07/11/19 4. Hypotension. Improved with IV fluid 5. Dehydration and hyperatremia, resolved 6. S/P PEG 7. Diabetes. 8. Benign prostatic hypertrophy.FU Dr. Callejas. S/P CT abdomen that showed Left hydronephrosis. Tolerated Cystoscopy, Ureteroscopy and Laser lithotripsy and ureteral stent by Dr Callejas Alert with no CP. EF 65% 9. Full code. DW RN Subjective Subjective In atrial fib. NPO for PPM implant today S/P Cystoscopy for Left hydronephrosis and lithotripsy by Dr. Callejas 07/24/19 Objective Last 24 Hour Vital Signs Date Time Temp Pulse Resp B/P (MAP) Pulse Ox O2 Delivery O2 Flow Rate FiO2 07/26/19 08:48 96 Nasal Cannula 3.0 32 07/26/19 07:47 80 19 98 Nasal Cannula 3.0 32 80 19 98 07/26/19 04:00 78 07/26/19 04:00 97.9 81 20 110/62 (78) 97 07/26/19 03:24 78 18 100 Nasal Cannula 3.0 32 79 18 95 07/26/19 00:00 74 07/25/19 23:58 98.1 79 20 144/68 (93) 97 07/25/19 23:55 77 18 100 Nasal Cannula 3.0 32 74 18 97 07/25/19 21:11 79 18 97 Nasal Cannula 3.0 32 07/25/19 21:00 Nasal Cannula 2.0 Nasal Cannula 2.0 07/25/19 21:00 Nasal Cannula 2.0 Nasal Cannula 2.0 07/25/19 20:00 82 07/25/19 20:00 98.2 81 20 138/55 (82) 97 07/25/19 19:54 96 Nasal Cannula 3.0 32 07/25/19 19:54 74 18 100 Nasal Cannula 3.0 32 71 18 96 07/25/19 17:36 Nasal Cannula 2.0 Nasal Cannula 2.0 07/25/19 16:00 98.2 75 17 110/58 (75) 98 07/25/19 16:00 83 07/25/19 15:34 66 18 100 Nasal Cannula 3.0 32 73 18 95 07/25/19 12:44 120/58 07/25/19 12:00 97.3 83 19 120/58 (78) 99 07/25/19 12:00 84 07/25/19 10:49 81 18 99 Nasal Cannula 3.0 32 77 18 96 Intake and Output 07/25/19 07/26/19 19:00 07:00 Intake Total 720 ml 745 ml Output Total 1000 ml 900 ml Balance -280 ml -155 ml IV Total 745 ml Tube Feeding 720 ml Output Urine Total 1000 ml 900 ml Laboratory Tests Test 07/26/19 06:09 White Blood Count 6.6 K/UL (4.8-10.8) Red Blood Count 3.18 M/UL (4.70-6.10) L Hemoglobin 8.8 G/DL (14.2-18.0) L Hematocrit 27.3 % (42.0-52.0) L Mean Corpuscular Volume 86 FL (80-99) Mean Corpuscular Hemoglobin 27.7 PG (27.0-31.0) Mean Corpuscular Hemoglobin Concent 32.4 G/DL (32.0-36.0) Red Cell Distribution Width 16.0 % (11.6-14.8) H Platelet Count 170 K/UL (150-450) Mean Platelet Volume 6.7 FL (6.5-10.1) Neutrophils (%) (Auto) 72.3 % (45.0-75.0) Lymphocytes (%) (Auto) 16.7 % (20.0-45.0) L Monocytes (%) (Auto) 7.0 % (1.0-10.0) Eosinophils (%) (Auto) 3.5 % (0.0-3.0) H Basophils (%) (Auto) 0.6 % (0.0-2.0) Erythrocyte Sedimentation Rate 62 MM/HR (0-20) H Sodium Level 144 MMOL/L (136-145) Potassium Level 4.1 MMOL/L (3.5-5.1) Chloride Level 107 MMOL/L (98-107) Carbon Dioxide Level 25 MMOL/L (21-32) Anion Gap 12 mmol/L (5-15) Blood Urea Nitrogen 19 mg/dL (7-18) H Creatinine 1.0 MG/DL (0.55-1.30) Estimat Glomerular Filtration Rate > 60 mL/min (>60) Glucose Level 100 MG/DL (74-106) Calcium Level 8.1 MG/DL (8.5-10.1) L Phosphorus Level 2.7 MG/DL (2.5-4.9) Magnesium Level 1.6 MG/DL (1.8-2.4) L Total Bilirubin 0.4 MG/DL (0.2-1.0) Aspartate Amino Transf (AST/SGOT) 18 U/L (15-37) Alanine Aminotransferase (ALT/SGPT) 33 U/L (12-78) Alkaline Phosphatase 113 U/L (46-116) C-Reactive Protein, Quantitative 3.7 mg/dL (0.00-0.90) H Total Protein 6.5 G/DL (6.4-8.2) Albumin 2.5 G/DL (3.4-5.0) L Globulin 4.0 g/dL Albumin/Globulin Ratio 0.6 (1.0-2.7) L Objective HEAD AND NECK: Mild JVD. LUNGS: Decreased breath sounds. CARDIOVASCULAR: IRRR tachy. No G/R/M ABDOMEN: Status post G-tube. EXTREMITIES: No pitting edema. Enio Santos MD Jul 26, 2019 09:26
--- NOTE | 2019-07-26 09:28 | Pre-Procedure Note/Attestation ---
Pre-Procedure Note/Attestation Complete Prior to Procedure Planned Procedure: left Procedure Narrative: DDD pacer Indications for Procedure Pre-Operative Diagnosis: Tachy hillary Attestation I attest that I discussed the nature of the procedure; its benefits; risks and complications; and alternatives (and the risks and benefits of such alternatives ), prior to the procedure, with the patient (or the patient's legal roofing sales representative). I attest that, if there was a reasonable possibility of needing a blood transfusion, the patient (or the patient's legal roofing sales representative) was given the [facility] standardized written summary, pursuant to the [place] Blood Safety Act ([place] Health and Safety Code # 1645, as amended). I attest that I re-evaluated the patient just prior to the surgery and that there has been no change in the patient's H&P, except as documented below: Enio Santos MD Jul 26, 2019 09:28
[2019-07-26] MEDS ORDERED: LR 1000ml ONE (09:30)
[2019-07-26] MEDS ORDERED: NS Irrig 1000ml ONE (09:30)
[2019-07-26] MEDS ORDERED: Sterile Water Irrig 1000ml IRRIG ONE (09:30)
--- NOTE | 2019-07-26 09:52 | NUR ---
P.T Note: Pt scheduled for pacemaker. Hold P.T at this time until MD clearance to mobilize patient after procedure received.
--- NOTE | 2019-07-26 09:56 | NUR ---
RD ASSESSMENT & RECOMMENDATIONS SEE CARE ACTIVITY FOR COMPLETE ASSESSMENT DAILY ESTIMATED NEEDS: Needs based on Pulmonary, wound/ 67.7kg 25-30 kcals/kg 7196-0425 total kcals 1.25-1.5 g protein/kg 85-102 g total protein 25-30 mL/kg 8053-1150 total fluid mLs NUTRITION DIAGNOSIS: * Increased kcal/prot needs R/T wound healing as evidenced by pt w/ resolving wounds @ L buttocks, refer to WC eval. 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 CURRENT TF: Vital AF 1.2 @ 60ml/hr x 24 hrs- NOW NPO for pacemaker (PO DIET RECOMMENDATIONS: IF PO INDICATED-> CCHO MED, LOW NA/ TEXTURE PER INTERNET SALESPERSON) ENTERAL NUTRITION RECOMMENDATIONS: Glucerna 1.2 @ 60ml/hr x 24 hrs to provide 1440ml, 1728kcal, 86g prot, 1159ml free water * Rec Glucerna 1.2 as pt now extubated, Vital AF no longer indicated. * Initiate Glucerna 1.2 @ 30ml/hr x 6 hrs, advance 10ml q 4-6 hrs as tolerated to goal rate. * HOB over 30 degrees * Water flush of 120ml q 4 hrs ADDITIONAL RECOMMENDATIONS: * Per SNF: HT=67" [id number] (As of Jun 10, 2019) * Monitor K closely, need for TF change (K 5.9 upon adm, now wnl) * Monitor hydration status: Na now normalized, BUN trend down -> monitor need to increase H20 flushes * Wound healing: continued Dipak BID * REC Added D5 at low rate while NPO for procedures to prevent hypoglycemia Check BG q3hrs while NPO
[2019-07-26] MEDS ORDERED: NS 275ml IRRIG ONE ×2 (10:11→10:28)
[2019-07-26] MEDS ORDERED: LR 1000ml 1,000 ML IVLG SCH (10:19)
--- NOTE | 2019-07-26 10:21 | Immediate Post-Op Evaluation ---
Immediate Post-Op Evalulation Immediate Post-Op Evalulation Procedure: Permanent Pacemaker Date of Evaluation: Jul 26, 2019 Time of Evaluation: 11:08 IV Fluids: 600 LR Blood Products: 0 Estimated Blood Loss: 9 Urinary Output: 0 Blood Pressure Systolic: 139 Blood Pressure Diastolic: 76 Pulse Rate: 78 Respiratory Rate: 16 O2 Sat by Pulse Oximetry: 100 Temperature (Fahrenheit): 97.3 Pain Score (1-10): 2 Nausea: No Vomiting: No Complications 0 Patient Status: awake, reacts, patent, none Hydration Status: adequate Dru Gram Ancef IV Given Within 1 Hr of Incision: Yes Time Given: 10:01 Gary Pisano MD Jul 26, 2019 10:21
[2019-07-26] MEDS ORDERED: Heparin 5000 units/ml inj ONE (10:22)
[2019-07-26] MEDS ORDERED: fentaNYL 100 mcg/2 mL IV PRN (10:30)
[2019-07-26] MEDS ORDERED: Labetalol 5mg/ml 20ml vial IV PRN (10:30)
[2019-07-26] MEDS ORDERED: oxyCODONE HCL/Acetaminophen 5/325mg ORAL PRN (10:30)
[2019-07-26] MEDS ORDERED: Ketorolac 30mg Inj IV PRN ×2 (10:30)
[2019-07-26] MEDS ORDERED: DiphenhydrAMINE 50mg/ml Inj IVP PRN (10:30)
[2019-07-26] MEDS ORDERED: Hydromorphone 0.5mg/0.5ml inj IVP PRN (10:30)
[2019-07-26] MEDS ORDERED: HYDROcodone/Acetamin 7.5/325 tab ORAL PRN (10:30)
[2019-07-26] MEDS ORDERED: Meperidine 25mg/0.5ml Inj (FOR RIGORS ONLY) IV PRN (10:30)
[2019-07-26] MEDS ORDERED: HYDROcodone/Acetamin 5/325 tab ORAL PRN (10:30)
[2019-07-26] MEDS ORDERED: Atropine Sulfate 0.4mg/ml inj IVP PRN (10:30)
--- NOTE | 2019-07-26 10:41 | Brief Operative Note ---
Immediate Post Operative Note Operative Note Pre-op Diagnosis: Tachy hillary Procedure: DDD [place] Pacer placement Post-op Diagnosis: same as pre-op Specimen: none Complications: none Condition: stable Fluids: none Estimated Blood Loss: minimal Implant(s) used?: Yes Enio Santos MD Jul 26, 2019 10:41
--- NOTE | 2019-07-26 11:49 | Infectious Diseases Prog Note ---
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 Multiple nonobstructive stones within the right kidney. Thickening of the wall the urinary bladder consistent with cystitis. Juan catheter in good position. 10 x 7 cm left inguinal hernia containing bowel. No evidence of obstruction.Trace left pleural effusion. Bilateral posterior basal atelectasis. Sepsis, Sp Probable UTI, sp rx Acute hypoxic respiratory failure, intubated 07/05; extubated 07/11 Aspiration pneumonia vs pneumonitis Gram positive bacteremia- contaminant -07/18 CXR: Mild pulmonary vascular congestion may be present. Correlate clinically.Basal atelectasis versus infiltrate. No change -07/15 CXR:Infiltrate and/or pleural effusion suspected at the left lung base. Mild pulmonary vascular congestion not excluded. Correlate clinically. -07/13 CXR: Improving pulmonary venous congestion with unchanged small left pleural effusion and slight worsening of left basilar infiltrate, indeterminate between atelectasis and pneumonia -07/11 u/a wbc 2-4, nit neg, leuk +3; ucx Neg Bcx Neg -07/06 Bcx Neg -07/05 CXR:Mild CHF -u/a wbc 5-10, nit neg, leuk +2; ucx Neg -Bcx 06/08 dipteriods -sp cx usual resp rupert -CXR: No acute process -influenza sc neg -v. duplex: no DVT -V/q scan:Findings are deemed low probability for pulmonary embolus Fever; low grade, recurrent- SP Mild leukocytosis,recurrent- SP CARA;SP Dm2 dysphagia s/p GT hx of PNA parkinson disease HTN bed bound [facility] resident Plan: -Continue periop Ancef #1 -07/25 SP Cefoxitin #2 (per-op) -07/17 SP Ceftriaxone #3 -07/15 SP Flagyl # 11, Cefepime #12 -07/09 SP IV Vancomycin #5 -07/04 SP Levaquin x1 -f/u cx -Monitor CBC/CMP, temperatures -aspiration precautions -GT care -Cards, Uro, nephro f/u -Cdiff if diarrhea Thank you for this consultation. Will continue to follow along with you. Subjective Allergies: Coded Allergies: PENICILLINS (Verified Allergy, Unknown, 07/04/19) Subjective afebrile no leukocytosis s/p PPM today Objective Vital Signs Last 24 Hour Vital Signs Date Time Temp Pulse Resp B/P (MAP) Pulse Ox O2 Delivery O2 Flow Rate FiO2 07/26/19 11:15 80 18 142/68 100 Simple Mask 6 07/26/19 11:05 78 20 138/62 100 Simple Mask 6 07/26/19 11:00 78 20 148/62 100 Simple Mask 6 07/26/19 10:57 97.3 77 23 139/76 100 Simple Mask 6 07/26/19 10:53 78 16 100 07/26/19 09:00 Nasal Cannula 2.0 Nasal Cannula 2.0 07/26/19 08:48 96 Nasal Cannula 3.0 32 07/26/19 08:00 97.9 77 16 120/63 (82) 98 07/26/19 08:00 75 07/26/19 07:47 80 19 98 Nasal Cannula 3.0 32 80 19 98 07/26/19 04:00 78 07/26/19 04:00 97.9 81 20 110/62 (78) 97 07/26/19 03:24 78 18 100 Nasal Cannula 3.0 32 79 18 95 07/26/19 00:00 74 07/25/19 23:58 98.1 79 20 144/68 (93) 97 07/25/19 23:55 77 18 100 Nasal Cannula 3.0 32 74 18 97 07/25/19 21:11 79 18 97 Nasal Cannula 3.0 32 07/25/19 21:00 Nasal Cannula 2.0 Nasal Cannula 2.0 07/25/19 21:00 Nasal Cannula 2.0 Nasal Cannula 2.0 07/25/19 20:00 82 07/25/19 20:00 98.2 81 20 138/55 (82) 97 07/25/19 19:54 96 Nasal Cannula 3.0 32 07/25/19 19:54 74 18 100 Nasal Cannula 3.0 32 71 18 96 07/25/19 17:36 Nasal Cannula 2.0 Nasal Cannula 2.0 07/25/19 16:00 98.2 75 17 110/58 (75) 98 07/25/19 16:00 83 07/25/19 15:34 66 18 100 Nasal Cannula 3.0 32 73 18 95 07/25/19 12:44 120/58 07/25/19 12:00 97.3 83 19 120/58 (78) 99 07/25/19 12:00 84 Height (Feet): 5 Height (Inches): 6.00 Weight (Pounds): 185 Objective General Appearance: no distress HEENT: normocephalic, atraumatic Neck: supple Respiratory/Chest: lungs clear Cardiovascular/Chest: normal rate, normal S1 and S2 Abdomen: normal bowel sounds, non tender Extremities: no edema Laboratory Tests Test 07/26/19 06:09 White Blood Count 6.6 K/UL (4.8-10.8) Red Blood Count 3.18 M/UL (4.70-6.10) L Hemoglobin 8.8 G/DL (14.2-18.0) L Hematocrit 27.3 % (42.0-52.0) L Mean Corpuscular Volume 86 FL (80-99) Mean Corpuscular Hemoglobin 27.7 PG (27.0-31.0) Mean Corpuscular Hemoglobin Concent 32.4 G/DL (32.0-36.0) Red Cell Distribution Width 16.0 % (11.6-14.8) H Platelet Count 170 K/UL (150-450) Mean Platelet Volume 6.7 FL (6.5-10.1) Neutrophils (%) (Auto) 72.3 % (45.0-75.0) Lymphocytes (%) (Auto) 16.7 % (20.0-45.0) L Monocytes (%) (Auto) 7.0 % (1.0-10.0) Eosinophils (%) (Auto) 3.5 % (0.0-3.0) H Basophils (%) (Auto) 0.6 % (0.0-2.0) Erythrocyte Sedimentation Rate 62 MM/HR (0-20) H Sodium Level 144 MMOL/L (136-145) Potassium Level 4.1 MMOL/L (3.5-5.1) Chloride Level 107 MMOL/L (98-107) Carbon Dioxide Level 25 MMOL/L (21-32) Anion Gap 12 mmol/L (5-15) Blood Urea Nitrogen 19 mg/dL (7-18) H Creatinine 1.0 MG/DL (0.55-1.30) Estimat Glomerular Filtration Rate > 60 mL/min (>60) Glucose Level 100 MG/DL (74-106) Calcium Level 8.1 MG/DL (8.5-10.1) L Phosphorus Level 2.7 MG/DL (2.5-4.9) Magnesium Level 1.6 MG/DL (1.8-2.4) L Total Bilirubin 0.4 MG/DL (0.2-1.0) Aspartate Amino Transf (AST/SGOT) 18 U/L (15-37) Alanine Aminotransferase (ALT/SGPT) 33 U/L (12-78) Alkaline Phosphatase 113 U/L (46-116) C-Reactive Protein, Quantitative 3.7 mg/dL (0.00-0.90) H Total Protein 6.5 G/DL (6.4-8.2) Albumin 2.5 G/DL (3.4-5.0) L Globulin 4.0 g/dL Albumin/Globulin Ratio 0.6 (1.0-2.7) L Current Medications Medications (Trade) Dose Ordered Sig/Genoveva Route PRN Reason Start Time Stop Time Status Last Admin Dose Admin Acetaminophen (Tylenol) 650 mg Q6H PRN GT Mild Pain/Temp > 100.5 07/25/19 16:15 08/24/19 16:14 Acetaminophen (Tylenol) 650 mg Q6H PRN ORAL FHMP 07/26/19 10:45 08/25/19 10:44 UNV Acetaminophen/ Codeine Phosphate (Tylenol #3) 1 tab Q4H PRN ORAL Moderate Pain (Pain Scale 4-6) 07/26/19 10:45 08/02/19 10:44 UNV Acetaminophen/ Hydrocodone Bitart (Aynor 5/325) 1 tab Q1H PRN ORAL Mild Pain (Pain Scale 1-3) 07/26/19 10:30 UNV Acetaminophen/ Hydrocodone Bitart (Aynor 7.5/325) 1 tab Q1H PRN ORAL Moderate Pain (Pain Scale 4-6) 07/26/19 10:30 UNV Al Hydroxide/Mg Hydroxide (Mylanta) 15 ml Q1H PRN ORAL gi upset 07/26/19 10:30 UNV Atropine Sulfate (Atropine 0.4mg/ ml) 0.5 mg Q5M PRN IVP HR<40 07/26/19 10:30 UNV Cefazolin Sodium 1 gm/Dextrose 55 ml @ 110 mls/hr Q8HR IVP 07/26/19 14:00 08/02/19 13:59 UNV Cefoxitin Sodium 1 gm/Sodium Chloride 55 ml @ 110 mls/hr Q8HR IVPB 07/25/19 22:00 08/01/19 21:59 07/26/19 05:26 Dextrose (Dextrose 50%) 25 ml Q30M PRN IV Hypoglycemia 07/19/19 06:30 08/11/19 11:59 Dextrose (Dextrose 50%) 50 ml Q30M PRN IV Hypoglycemia 07/19/19 06:30 08/11/19 11:59 Diphenhydramine HCl (Benadryl) 25 mg Q15M PRN IVP Itching 07/26/19 10:30 UNV Fentanyl Citrate (Sublimaze 100 mcg/2 mL) 25 mcg Q10M PRN IV Moderate Pain (Pain Scale 4-6) 07/26/19 10:30 UNV Finasteride (Proscar) 5 mg DAILY ORAL 07/19/19 09:00 08/13/19 08:59 07/25/19 08:51 Hydralazine HCl (Apresoline) 5 mg Q30M PRN IV SBP>160 / DBP>90 07/26/19 10:30 UNV Hydralazine HCl (Apresoline) 10 mg Q4H PRN IV bp over 160 syst 07/19/19 06:30 08/05/19 06:29 Hydromorphone HCl (Dilaudid) 0.5 mg Q15M PRN IVP Severe Pain (Pain Scale 7-10) 07/26/19 10:30 UNV Insulin Aspart (NovoLOG) Q6HR SUBQ 07/19/19 12:00 08/11/19 16:29 07/25/19 13:27 Ketorolac Tromethamine (Toradol 30mg) 15 mg Q1H PRN IV Moderate Breakthru Pain (5-7) 07/26/19 10:30 UNV Ketorolac Tromethamine (Toradol 30mg) 30 mg Q1H PRN IV Severe Breakthru Pain (>7) 07/26/19 10:30 UNV Labetalol HCl (Normodyne) 5 mg Q10M PRN IV SBP>160 / DBP>90 07/26/19 10:30 07/27/19 10:29 UNV Lactated Ringer's 1,000 ml @ 10 mls/hr Q24H IVLG 07/26/19 10:19 07/26/19 12:18 UNV Meperidine HCl (Demerol) 25 mg Q5M PRN IV SHIVERING.MAY REPEAT X 1 07/26/19 10:30 UNV Morphine Sulfate (Morphine Sulfate) 2 mg Q1H PRN IVP Severe Pain (Pain Scale 7-10) 07/26/19 10:45 08/02/19 10:44 UNV Nitroglycerin (Ntg) 1 patch Q24H TDERMAL 07/19/19 12:30 08/05/19 12:29 07/25/19 12:44 Ondansetron HCl (Zofran) 4 mg Q1H PRN IVP Nausea & Vomiting 07/26/19 10:30 UNV Ondansetron HCl (Zofran) 4 mg Q6H PRN IVP Nausea & Vomiting 07/26/19 10:45 08/25/19 10:44 UNV Oxycodone/ Acetaminophen (Percocet 5-325) 1 tab Q1H PRN ORAL Severe Pain (Pain Scale 7-10) 07/26/19 10:30 UNV Pantoprazole (Protonix) 40 mg Q12HR IV 07/19/19 09:00 08/04/19 11:14 07/25/19 22:36 Polyethylene Glycol (Miralax) 17 gm DAILY GT 07/26/19 09:00 08/24/19 11:59 Potassium Chloride (K-Dur) 20 meq DAILY GT 07/22/19 09:00 08/21/19 08:59 07/25/19 08:51 Promethazine HCl/ Codeine (Phenergan with Codeine) 5 ml Q4H PRN GT For Cough 07/25/19 16:00 08/03/19 06:29 Sennosides (Senokot) 8.6 mg DAILY GT 07/26/19 09:00 08/24/19 11:59 Sodium Chloride 1,000 ml @ 75 mls/hr [id number] IV 07/22/19 16:41 08/21/19 16:40 07/25/19 17:30 Tamsulosin HCl (Flomax) 0.4 mg BEDTIME ORAL 07/19/19 21:00 08/12/19 20:59 07/25/19 21:39 Mirian Page M.D. Jul 26, 2019 11:49
[2019-07-26] MEDS: Sennosides 8.6mg tab GT SCH (12:33)
[2019-07-26] MEDS: Miralax 17gm pkt GT SCH (12:34)
[2019-07-26] MEDS: Nitroglycerin Patch 0.4mg TDERMAL SCH (12:34)
[2019-07-26] MEDS: Pantoprazole Inj IV SCH ×2 (12:41→21:11)
[2019-07-26] MEDS ORDERED: Acetaminophen 650mg/20.3ml GT PRN (13:00)
[2019-07-26] MEDS ORDERED: Morphine Sulfate 2mg/ml Inj(IV/IM USE ONLY) IVP PRN (13:00)
[2019-07-26] MEDS ORDERED: Tylenol #3 tab (300mg/30mg) GT PRN (13:00)
--- NOTE | 2019-07-26 13:06 | Pulmonology Progress Note ---
Assessment/Plan Problems: (1) Cardiac arrest with successful resuscitation (2) Respiratory failure with hypoxia (3) Sepsis Assessment & Plan: resolved, off abx (4) CARA (acute kidney injury) (5) Anemia (6) Hypertensive heart disease (7) BPH (benign prostatic hyperplasia) (8) DVT (deep venous thrombosis) (9) Parkinson disease (10) Diabetes mellitus (11) Feeding by G-tube Assessment/Plan s/p lithotripsy and uretral stent placement pacemaker today wbc wnl, afebrile bun/creatinine better no new cultures tolerating diet aspiration precaution titrate fio2 to sat of 92% sliding scale\ Subjective ROS Limited/Unobtainable: No Constitutional: Reports: no symptoms HEENT: Repors: no symptoms Respiratory: Reports: no symptoms Allergies: Coded Allergies: PENICILLINS (Verified Allergy, Unknown, 07/04/19) Objective Last 24 Hour Vital Signs Date Time Temp Pulse Resp B/P (MAP) Pulse Ox O2 Delivery O2 Flow Rate FiO2 07/26/19 12:34 143/65 07/26/19 12:00 98.1 24 137/74 (95) 97 07/26/19 11:40 98.3 74 20 143/65 100 Nasal Cannula 2 07/26/19 11:25 76 18 136/66 100 Nasal Cannula 2 07/26/19 11:15 80 18 142/68 100 Simple Mask 6 07/26/19 11:05 78 20 138/62 100 Simple Mask 6 07/26/19 11:00 78 20 148/62 100 Simple Mask 6 07/26/19 10:57 97.3 77 23 139/76 100 Simple Mask 6 07/26/19 10:53 78 16 100 07/26/19 09:00 Nasal Cannula 2.0 Nasal Cannula 2.0 07/26/19 08:48 96 Nasal Cannula 3.0 32 07/26/19 08:00 97.9 77 16 120/63 (82) 98 07/26/19 08:00 75 07/26/19 07:47 80 19 98 Nasal Cannula 3.0 32 80 19 98 07/26/19 04:00 78 07/26/19 04:00 97.9 81 20 110/62 (78) 97 07/26/19 03:24 78 18 100 Nasal Cannula 3.0 32 79 18 95 07/26/19 00:00 74 07/25/19 23:58 98.1 79 20 144/68 (93) 97 07/25/19 23:55 77 18 100 Nasal Cannula 3.0 32 74 18 97 07/25/19 21:11 79 18 97 Nasal Cannula 3.0 32 07/25/19 21:00 Nasal Cannula 2.0 Nasal Cannula 2.0 07/25/19 21:00 Nasal Cannula 2.0 Nasal Cannula 2.0 07/25/19 20:00 82 07/25/19 20:00 98.2 81 20 138/55 (82) 97 07/25/19 19:54 96 Nasal Cannula 3.0 32 07/25/19 19:54 74 18 100 Nasal Cannula 3.0 32 71 18 96 07/25/19 17:36 Nasal Cannula 2.0 Nasal Cannula 2.0 07/25/19 16:00 98.2 75 17 110/58 (75) 98 07/25/19 16:00 83 07/25/19 15:34 66 18 100 Nasal Cannula 3.0 32 73 18 95 Intake and Output 07/25/19 07/26/19 19:00 07:00 Intake Total 720 ml 745 ml Output Total 1000 ml 900 ml Balance -280 ml -155 ml IV Total 745 ml Tube Feeding 720 ml Output Urine Total 1000 ml 900 ml Objective got the pacemaker General Appearance: WD/WN HEENT: normocephalic, atraumatic Respiratory/Chest: chest wall non-tender, normal breath sounds Cardiovascular: normal peripheral pulses, normal rate, regular rhythm Abdomen: normal bowel sounds, soft, non tender, no organomegaly, non distended Skin: no rash Neurologic/Psychiatric: application manager II-XII grossly normal Laboratory Tests 07/26/19 06:09: White Blood Count 6.6, Red Blood Count 3.18L, Hemoglobin 8.8L, Hematocrit 27.3L , Mean Corpuscular Volume 86, Mean Corpuscular Hemoglobin 27.7, Mean Corpuscular Hemoglobin Concent 32.4, Red Cell Distribution Width 16.0H, Platelet Count 170, Mean Platelet Volume 6.7, Neutrophils (%) (Auto) 72.3, Lymphocytes (%) (Auto) 16.7L, Monocytes (%) (Auto) 7.0, Eosinophils (%) (Auto) 3.5H, Basophils (%) (Auto) 0.6, Erythrocyte Sedimentation Rate 62H, Sodium Level 144, Potassium Level 4.1, Chloride Level 107, Carbon Dioxide Level 25, Anion Gap 12, Blood Urea Nitrogen 19H, Creatinine 1.0, Estimat Glomerular Filtration Rate > 60, Glucose Level 100, Calcium Level 8.1L, Phosphorus Level 2.7, Magnesium Level 1.6L, Total Bilirubin 0.4, Aspartate Amino Transf (AST/SGOT ) 18, Alanine Aminotransferase (ALT/SGPT) 33, Alkaline Phosphatase 113, C- Reactive Protein, Quantitative 3.7H, Total Protein 6.5, Albumin 2.5L, Globulin 4.0, Albumin/Globulin Ratio 0.6L Current Medications Medications (Trade) Dose Ordered Sig/Genoveva Route PRN Reason Start Time Stop Time Status Last Admin Dose Admin Acetaminophen (Tylenol) 650 mg Q6H PRN GT Mild Pain/Temp > 100.5 07/25/19 16:15 08/24/19 16:14 Acetaminophen (Tylenol) 650 mg Q6H PRN GT Headache 07/26/19 13:00 08/25/19 12:59 Acetaminophen/ Codeine Phosphate (Tylenol #3) 1 tab Q4H PRN GT Moderate Pain (Pain Scale 4-6) 07/26/19 13:00 08/02/19 12:59 Cefoxitin Sodium 1 gm/Sodium Chloride 55 ml @ 110 mls/hr Q8HR IVPB 07/25/19 22:00 08/01/19 21:59 07/26/19 05:26 Dextrose (Dextrose 50%) 25 ml Q30M PRN IV Hypoglycemia 07/19/19 06:30 08/11/19 11:59 Dextrose (Dextrose 50%) 50 ml Q30M PRN IV Hypoglycemia 07/19/19 06:30 08/11/19 11:59 Finasteride (Proscar) 5 mg DAILY ORAL 07/19/19 09:00 08/13/19 08:59 07/26/19 12:33 Hydralazine HCl (Apresoline) 10 mg Q4H PRN IV bp over 160 syst 07/19/19 06:30 08/05/19 06:29 Insulin Aspart (NovoLOG) Q6HR SUBQ 07/19/19 12:00 08/11/19 16:29 07/25/19 13:27 Morphine Sulfate (Morphine Sulfate) 2 mg Q1H PRN IVP Severe Pain (Pain Scale 7-10) 07/26/19 13:00 08/02/19 12:59 Nitroglycerin (Ntg) 1 patch Q24H TDERMAL 07/19/19 12:30 08/05/19 12:29 07/26/19 12:34 Ondansetron HCl (Zofran) 4 mg Q6H PRN IVP Nausea & Vomiting 07/26/19 13:00 08/25/19 12:59 Pantoprazole (Protonix) 40 mg Q12HR IV 07/19/19 09:00 08/04/19 11:14 07/26/19 12:41 Polyethylene Glycol (Miralax) 17 gm DAILY GT 07/26/19 09:00 08/24/19 11:59 07/26/19 12:34 Potassium Chloride (K-Dur) 20 meq DAILY GT 07/22/19 09:00 08/21/19 08:59 07/26/19 12:33 Promethazine HCl/ Codeine (Phenergan with Codeine) 5 ml Q4H PRN GT For Cough 07/25/19 16:00 08/03/19 06:29 Sennosides (Senokot) 8.6 mg DAILY GT 07/26/19 09:00 08/24/19 11:59 07/26/19 12:33 Sodium Chloride 1,000 ml @ 75 mls/hr [id number] IV 07/22/19 16:41 08/21/19 16:40 07/25/19 17:30 Tamsulosin HCl (Flomax) 0.4 mg BEDTIME ORAL 07/19/19 21:00 08/12/19 20:59 07/25/19 21:39 Kathryn Lopez MD Jul 26, 2019 13:06
--- NOTE | 2019-07-26 13:26 | NUR ---
CASE MANAGEMENT:REVIEW 07/26/19 SI: SEPSIS. RESP FAILURE. S/P CARDIAC ARREST S/P LITHOTRIPSY WITH STENT PLACEMNT 97.3 77 23 139/76 100 % ON SIMPLE MASK 6L H/ 8.8/27.3 CO2-19 CA+ 8.1 MG 1.6 ESR 62 C-REC PROT. 3.7 IS: IV CEFOXITIN TID IV NS @75ML/HR IV PROTONIX BID K-DUR GT QD FLOMAX PO QHS NTG PATCH Q24 PROSCAR PO QD SENOKOT GT QD ALBUTEROL HHN Q4HRS RTC IV PROTONIX BID PERMANENT PACEMAKER PLACEMENT TODAY : NOW ON TELEMETRY DCP: FROM [facility]: CONSENT FOR PERMANENT PACEMAKER
--- NOTE | 2019-07-26 13:40 | Nephrology Progress Note ---
Assessment/Plan Problem List: (1) RIA (acute kidney injury) (2) Cardiac arrest with successful resuscitation (3) Respiratory failure with hypoxia (4) Hydronephrosis Assessment patient have Ria due to Low BP and s/p arrest elevated liver enzymes for same reason others: 1. Acute hypoxemic respiratory failure. 2. Hypotension possible sepsis. 3. Diabetes type 2. 4. Parkinson disease. 5. Hypercholesterolemia. 6. EjFx 65% reported 7. Dysphagia. 8. Benign prostatic hypertrophy. Plan s/p Cr 1.6 now wnl Extubated 07/11 Nitro- Phos , K , Mag supplement as needed keep BP above 100 syst Pulm support monitor renal parameters discussed with RN VALENTINA: Moderate left hydronephrosis. Juan catheter. Echogenic right kidney. Suspected medical renal disease. CXR 07/15 IMPRESSION: Infiltrate and/or pleural effusion suspected at the left lung base. Mild pulmonary vascular congestion not excluded. Correlate clinically. Subjective ROS Limited/Unobtainable: No Constitutional: Reports: malaise, weakness Objective Objective Last 24 Hour Vital Signs Date Time Temp Pulse Resp B/P (MAP) Pulse Ox O2 Delivery O2 Flow Rate FiO2 07/26/19 12:34 143/65 07/26/19 12:00 98.1 24 137/74 (95) 97 07/26/19 12:00 76 07/26/19 11:40 98.3 74 20 143/65 100 Nasal Cannula 2 07/26/19 11:25 76 18 136/66 100 Nasal Cannula 2 07/26/19 11:15 80 18 142/68 100 Simple Mask 6 07/26/19 11:05 78 20 138/62 100 Simple Mask 6 07/26/19 11:00 78 20 148/62 100 Simple Mask 6 07/26/19 10:57 97.3 77 23 139/76 100 Simple Mask 6 07/26/19 10:53 78 16 100 07/26/19 09:00 Nasal Cannula 2.0 Nasal Cannula 2.0 07/26/19 08:48 96 Nasal Cannula 3.0 32 07/26/19 08:00 97.9 77 16 120/63 (82) 98 07/26/19 08:00 75 07/26/19 07:47 80 19 98 Nasal Cannula 3.0 32 80 19 98 07/26/19 04:00 78 2/21/20 04:00 97.9 81 20 110/62 (78) 97 07/26/19 03:24 78 18 100 Nasal Cannula 3.0 32 79 18 95 07/26/19 00:00 74 07/25/19 23:58 98.1 79 20 144/68 (93) 97 07/25/19 23:55 77 18 100 Nasal Cannula 3.0 32 74 18 97 07/25/19 21:11 79 18 97 Nasal Cannula 3.0 32 07/25/19 21:00 Nasal Cannula 2.0 Nasal Cannula 2.0 07/25/19 21:00 Nasal Cannula 2.0 Nasal Cannula 2.0 07/25/19 20:00 82 07/25/19 20:00 98.2 81 20 138/55 (82) 97 07/25/19 19:54 96 Nasal Cannula 3.0 32 07/25/19 19:54 74 18 100 Nasal Cannula 3.0 32 71 18 96 07/25/19 17:36 Nasal Cannula 2.0 Nasal Cannula 2.0 07/25/19 16:00 98.2 75 17 110/58 (75) 98 07/25/19 16:00 83 07/25/19 15:34 66 18 100 Nasal Cannula 3.0 32 73 18 95 Intake and Output 07/25/19 07/26/19 19:00 07:00 Intake Total 720 ml 745 ml Output Total 1000 ml 900 ml Balance -280 ml -155 ml IV Total 745 ml Tube Feeding 720 ml Output Urine Total 1000 ml 900 ml Laboratory Tests 07/26/19 06:09: White Blood Count 6.6, Red Blood Count 3.18L, Hemoglobin 8.8L, Hematocrit 27.3L , Mean Corpuscular Volume 86, Mean Corpuscular Hemoglobin 27.7, Mean Corpuscular Hemoglobin Concent 32.4, Red Cell Distribution Width 16.0H, Platelet Count 170, Mean Platelet Volume 6.7, Neutrophils (%) (Auto) 72.3, Lymphocytes (%) (Auto) 16.7L, Monocytes (%) (Auto) 7.0, Eosinophils (%) (Auto) 3.5H, Basophils (%) (Auto) 0.6, Erythrocyte Sedimentation Rate 62H, Sodium Level 144, Potassium Level 4.1, Chloride Level 107, Carbon Dioxide Level 25, Anion Gap 12, Blood Urea Nitrogen 19H, Creatinine 1.0, Estimat Glomerular Filtration Rate > 60, Glucose Level 100, Calcium Level 8.1L, Phosphorus Level 2.7, Magnesium Level 1.6L, Total Bilirubin 0.4, Aspartate Amino Transf (AST/SGOT ) 18, Alanine Aminotransferase (ALT/SGPT) 33, Alkaline Phosphatase 113, C- Reactive Protein, Quantitative 3.7H, Total Protein 6.5, Albumin 2.5L, Globulin 4.0, Albumin/Globulin Ratio 0.6L Height (Feet): 5 Height (Inches): 6.00 Weight (Pounds): 185 General Appearance: no apparent distress, lethargic Cardiovascular: normal rate Respiratory/Chest: decreased breath sounds Abdomen: soft Objective no change Oskar Mohr MD Jul 26, 2019 13:40
--- NOTE | 2019-07-26 15:30 | Operative Note - Dictated ---
DATE OF OPERATION: 07/26/2019 PERMANENT PACEMAKER IMPLANTATION SURGEON: Enio Santos M.D. REFERRING PHYSICIAN: Rayshawn Woods M.D. INDICATION FOR PROCEDURE: Status post bradycardic arrest, off any sinus or AV destinee blocking agents. PROCEDURE PERFORMED: 1. Dual-chamber permanent pacemaker implantation. 2. Fluoroscopic supervision and interpretation. OPERATIVE REPORT: The patient was brought into the operating room in fasting state and after informed consent was obtained. The patient was prepped and draped in usual fashion. Conscious sedation was provided by the anesthesiologist. After prep and drape and under sterile condition, the patient received antibiotic within an hour of incision. Total of 20 mL of lidocaine was given to left prepectoralis area. An incision was made along the left deltopectoral groove. Sharp and blunt dissection was made to the level of pectoralis fascia. The cephalic vein was isolated and cutdown was performed. The right atrial and ventricular lead was placed through this access and was placed in right atrial appendage and right ventricular apex with excellent sensing and pacing parameters. Both leads were then affixed to underlying pectoralis fascia. A pocket was made close to the venous access site that was irrigated with antibiotic solution. The leads were then connected to the pacemaker and left in the pocket. The pocket was then closed in three layers using 2-0 Vicryl and Dermabond. The patient suffered no immediate complications from the procedure and was transferred to recovery room in stable condition. FINDINGS: The pacemaker is from [employer]. It is model number [id number], serial number is [id number]. The atrial lead is from [employer] [id number] 62 cm, serial number is [id number]. The right ventricular lead is from [employer], it is [id number] 58 cm, serial number [id number]. The P-wave amplitude is 2.9 millivolts, threshold is 1.5 volts at 0.4 millisecond, impedance of 468 ohms. R-wave was 6.2 millivolts, threshold is 0.5 volts at 0.4 millisecond, impedance of 650 ohms. IMPRESSION: 1. Successful dual-chamber permanent pacemaker implantation. 2. Pacemaker was programmed to DDD lower rate of 60 and upper rate of 120. 3. No immediate complications from the procedure. Enio Santos M.D. DR: TRUDY JOB#: [id number] CC:
--- NOTE | 2019-07-26 15:50 | Diagnostic Imaging Report ---
Indication: Status post pacemaker, history of arrhythmia Technique: One view of the chest Comparison: 07/22/2019 Findings: Interim placement of left chest bifocal pacemaker, lead tips in the expected region of the right atrium and right ventricular apex. Atelectatic changes are seen at both lung bases, increased at the right lung base. There may be some focal consolidation in the right lung base. No pneumothorax. The heart is borderline enlarged. The aorta is tortuous and calcified Impression: Interim pacemaker placement. No radiographic evident complication Bilateral basilar atelectasis. Suspect increasing parenchymal disease at the right lung base
--- NOTE | 2019-07-26 16:01 | Diagnostic Imaging Report ---
INDICATION: Pain, intraoperative TECHNIQUE: Intraoperative imaging Fluoroscopy time: 123.7 seconds Total dose: 0.16031 mGym2 Total number of images: One COMPARISON: None FINDINGS: Intraoperative images document placement of pacemaker wires in right atrium and right ventricle IMPRESSION: Intraoperative imaging, as described
[2019-07-26] MEDS ORDERED: ceFAZolin sod 1 GM in D5W 55 ML IVP SCH (18:00)
--- NOTE | 2019-07-26 18:58 | Internal Med Progress Note ---
Subjective Date of Service: Jul 26, 2019 Physician Name Shukri Glover Attending Physician Rayshawn Woods MD Current Medications Medications (Trade) Dose Ordered Sig/Genoveva Route PRN Reason Start Time Stop Time Status Last Admin Dose Admin Acetaminophen (Tylenol) 650 mg Q6H PRN GT Mild Pain/Temp > 100.5 07/25/19 16:15 08/24/19 16:14 Acetaminophen (Tylenol) 650 mg Q6H PRN GT Headache 07/26/19 13:00 08/25/19 12:59 Acetaminophen/ Codeine Phosphate (Tylenol #3) 1 tab Q4H PRN GT Moderate Pain (Pain Scale 4-6) 07/26/19 13:00 08/02/19 12:59 Cefoxitin Sodium 1 gm/Sodium Chloride 55 ml @ 110 mls/hr Q8HR IVPB 07/25/19 22:00 08/01/19 21:59 07/26/19 15:47 Dextrose (Dextrose 50%) 25 ml Q30M PRN IV Hypoglycemia 07/19/19 06:30 08/11/19 11:59 Dextrose (Dextrose 50%) 50 ml Q30M PRN IV Hypoglycemia 07/19/19 06:30 08/11/19 11:59 Finasteride (Proscar) 5 mg DAILY ORAL 07/19/19 09:00 08/13/19 08:59 07/26/19 12:33 Hydralazine HCl (Apresoline) 10 mg Q4H PRN IV bp over 160 syst 07/19/19 06:30 08/05/19 06:29 Insulin Aspart (NovoLOG) Q6HR SUBQ 07/19/19 12:00 08/11/19 16:29 07/25/19 13:27 Morphine Sulfate (Morphine Sulfate) 2 mg Q1H PRN IVP Severe Pain (Pain Scale 7-10) 07/26/19 13:00 08/02/19 12:59 Nitroglycerin (Ntg) 1 patch Q24H TDERMAL 07/19/19 12:30 08/05/19 12:29 07/26/19 12:34 Ondansetron HCl (Zofran) 4 mg Q6H PRN IVP Nausea & Vomiting 07/26/19 13:00 08/25/19 12:59 Pantoprazole (Protonix) 40 mg Q12HR IV 07/19/19 09:00 08/04/19 11:14 07/26/19 12:41 Polyethylene Glycol (Miralax) 17 gm DAILY GT 07/26/19 09:00 08/24/19 11:59 07/26/19 12:34 Potassium Chloride (K-Dur) 20 meq DAILY GT 07/22/19 09:00 08/21/19 08:59 07/26/19 12:33 Promethazine HCl/ Codeine (Phenergan with Codeine) 5 ml Q4H PRN GT For Cough 07/25/19 16:00 08/03/19 06:29 Sennosides (Senokot) 8.6 mg DAILY GT 07/26/19 09:00 08/24/19 11:59 07/26/19 12:33 Sodium Chloride 1,000 ml @ 75 mls/hr [id number] IV 07/22/19 16:41 08/21/19 16:40 07/25/19 17:30 Tamsulosin HCl (Flomax) 0.4 mg BEDTIME ORAL 07/19/19 21:00 08/12/19 20:59 07/25/19 21:39 Allergies: Coded Allergies: PENICILLINS (Verified Allergy, Unknown, 07/04/19) ROS Limited/Unobtainable: Yes Subjective 83 YO M admitted with dyspnea, now respiratory failure. Cover for Int Med-Dr Woods. Extubated 07/11/19. S/P cystoscopy/left ureteroscopy/stent/right ESWL 07/24/19. S/P Pacemaker implantation on Monday07/26/19. Objective Last Vital Signs Date Time Temp Pulse Resp B/P (MAP) Pulse Ox O2 Delivery O2 Flow Rate FiO2 07/26/19 16:00 77 07/26/19 16:00 97.7 20 137/65 (89) 94 07/26/19 11:40 Nasal Cannula 2 07/26/19 08:48 32 Laboratory Tests Test 07/26/19 06:09 White Blood Count 6.6 K/UL (4.8-10.8) Red Blood Count 3.18 M/UL (4.70-6.10) L Hemoglobin 8.8 G/DL (14.2-18.0) L Hematocrit 27.3 % (42.0-52.0) L Mean Corpuscular Volume 86 FL (80-99) Mean Corpuscular Hemoglobin 27.7 PG (27.0-31.0) Mean Corpuscular Hemoglobin Concent 32.4 G/DL (32.0-36.0) Red Cell Distribution Width 16.0 % (11.6-14.8) H Platelet Count 170 K/UL (150-450) Mean Platelet Volume 6.7 FL (6.5-10.1) Neutrophils (%) (Auto) 72.3 % (45.0-75.0) Lymphocytes (%) (Auto) 16.7 % (20.0-45.0) L Monocytes (%) (Auto) 7.0 % (1.0-10.0) Eosinophils (%) (Auto) 3.5 % (0.0-3.0) H Basophils (%) (Auto) 0.6 % (0.0-2.0) Erythrocyte Sedimentation Rate 62 MM/HR (0-20) H Sodium Level 144 MMOL/L (136-145) Potassium Level 4.1 MMOL/L (3.5-5.1) Chloride Level 107 MMOL/L (98-107) Carbon Dioxide Level 25 MMOL/L (21-32) Anion Gap 12 mmol/L (5-15) Blood Urea Nitrogen 19 mg/dL (7-18) H Creatinine 1.0 MG/DL (0.55-1.30) Estimat Glomerular Filtration Rate > 60 mL/min (>60) Glucose Level 100 MG/DL (74-106) Calcium Level 8.1 MG/DL (8.5-10.1) L Phosphorus Level 2.7 MG/DL (2.5-4.9) Magnesium Level 1.6 MG/DL (1.8-2.4) L Total Bilirubin 0.4 MG/DL (0.2-1.0) Aspartate Amino Transf (AST/SGOT) 18 U/L (15-37) Alanine Aminotransferase (ALT/SGPT) 33 U/L (12-78) Alkaline Phosphatase 113 U/L (46-116) C-Reactive Protein, Quantitative 3.7 mg/dL (0.00-0.90) H Total Protein 6.5 G/DL (6.4-8.2) Albumin 2.5 G/DL (3.4-5.0) L Globulin 4.0 g/dL Albumin/Globulin Ratio 0.6 (1.0-2.7) L Intake and Output 07/25/19 07/26/19 19:00 07:00 Intake Total 720 ml 745 ml Output Total 1000 ml 900 ml Balance -280 ml -155 ml IV Total 745 ml Tube Feeding 720 ml Output Urine Total 1000 ml 900 ml Objective PHYSICAL EXAMINATION: GENERAL: The patient is a well-developed and well-nourished male, in moderate respiratory distress. HEENT: Eyes, pupils are equal and responsive to light and accommodation. Extraocular movements are intact. NECK: Supple without lymphadenopathy. CHEST: nasal canula; Coarse breath sounds bilaterally with expiratory wheezes. Otherwise, without crackles. ABDOMINAL: Soft, nontender, and nondistended. Positive bowel sounds. No evidence of hepatosplenomegaly. Currently, no rebound or guarding noted. CARDIOVASCULAR: Tachycardic. Regular rhythm. S1 and S2 are normal without murmurs, rubs, or gallops. GENITOURINARY: Deferred. NEUROLOGICAL: Cranial nerves II to XII are grossly intact without focal deficits. EXTREMITIES: Negative for clubbing, cyanosis, or edema. Assessment/Plan Assessment/Plan ASSESSMENT: This is an 83-year-old male. 1. Dyspnea. 2. Respiratory distress. 3. Diabetes type 2. 4. Parkinson disease. 5. Hypercholesterolemia. 6. Dilated cardiomyopathy. 7. Dysphagia. 8. Benign prostatic hypertrophy. 9. 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 NSTEMI TREATMENT: 1. Dyspnea/respiratory distress. A Pulmonary consultation has been obtained with Dr. Kathryn Lopez. The patient is currently extubated. ABX=Ceftriaxone. We will follow recommendations of Pulmonary. 2. Diabetes type 2. 3. Hypercholesterolemia. 4. Dilated cardiomyopathy. 5. Dysphagia. The patient is status post PEG placement. 6. Hypertensive heart disease. 7. Benign prostatic hypertrophy. 8. ID=DR. Page 9. Urology = Dr. Callejas; S/P for cystoscopy/left ureteroscopy/stent/right ESWL 07/24/19 10. cardiology = Dr Santos 11. S/P Pacemaker implantation on Mon07/26/19 Shukri Glover MD Jul 26, 2019 18:58
--- NOTE | 2019-07-26 19:50 | NUR ---
NURSE NOTES: RECEIVED PT FROM VIRGIL Anderson. Pt awake, alert, and talkative. Bed in lowest position. Call light within reach. Will continue to monitor.
[2019-07-26] MEDS: Tamsulosin 0.4mg cap ORAL SCH (21:11)
[2019-07-26] MEDS ORDERED: Albuterol/Ipratropium 3ml neb HHN PRN (21:30)
[2019-07-27] VITALS: BP 129/68
[2019-07-27] MEDS: Albuterol/Ipratropium 3ml neb HHN SCH ×6 (03:08→23:40)
[2019-07-27 04:00] VITALS: BP 121/55
[2019-07-27] MEDS: NovoLOG Insulin Flexpen SUBQ SCH ×4 (05:42→18:00)
[2019-07-27] MEDS: cefOXitin Sod 1 GM in NS 55 ML IVPB SCH (05:48)
--- NOTE | 2019-07-27 07:55 | NUR ---
HAND-OFF: Report given to VIRGIL ODONNELL. PT STABLE.
[2019-07-27 08:00] VITALS: BP 126/51
--- NOTE | 2019-07-27 09:11 | Urology Progress Note ---
Assessment/Plan Assessment/Plan: 1. Left-sided hydronephrosis, poss chronic. 2. Proteinuria. 3. Hematuria. 4. Pyuria. 5. Urinary retention. 6. BPH history. 7. Rule out neurogenic bladder. 8. Mild acute kidney injury, improved. 9. Left ureteral calculus. 10. Right renal calculi. 11. Cystitis. 12. Left inguinal hernia. 13. POD # 3, left ureteroscopy/laser litho/stent, right ESWL monitor clinically maintain nixon hand irrigate PRN cath secured to pt's leg abx prophylaxis, change to PO soon monitor renal fxn flomax and proscar added voiding trial soon Subjective Allergies: Coded Allergies: PENICILLINS (Verified Allergy, Unknown, 07/04/19) Subjective all noted, looks comfortable, pacemaker placed 07/26 Objective Last 24 Hour Vital Signs Date Time Temp Pulse Resp B/P (MAP) Pulse Ox O2 Delivery O2 Flow Rate FiO2 07/27/19 08:00 97.2 71 20 126/51 (76) 98 07/27/19 07:36 98 Nasal Cannula 2.0 28 07/27/19 07:36 71 20 100 Nasal Cannula 2.0 28 72 20 98 07/27/19 04:00 98.0 84 24 121/55 (77) 92 07/27/19 04:00 83 07/27/19 03:08 77 20 100 Nasal Cannula 2.0 28 74 20 98 07/27/19 00:00 97.7 86 24 129/68 (88) 96 07/27/19 00:00 83 07/26/19 23:27 81 20 98 Room Air 21 78 20 93 07/26/19 21:00 Room Air 2.0 Nasal Cannula 07/26/19 20:00 83 07/26/19 20:00 97.9 86 24 153/75 (101) 94 07/26/19 19:54 94 Nasal Cannula 2.0 28 07/26/19 16:00 77 07/26/19 16:00 97.7 79 20 137/65 (89) 94 07/26/19 12:34 143/65 07/26/19 12:00 98.1 24 137/74 (95) 97 07/26/19 12:00 76 07/26/19 11:40 98.3 74 20 143/65 100 Nasal Cannula 2 07/26/19 11:25 76 18 136/66 100 Nasal Cannula 2 07/26/19 11:15 80 18 142/68 100 Simple Mask 6 07/26/19 11:05 78 20 138/62 100 Simple Mask 6 07/26/19 11:00 78 20 148/62 100 Simple Mask 6 07/26/19 10:57 97.3 77 23 139/76 100 Simple Mask 6 07/26/19 10:53 78 16 100 Intake and Output 07/26/19 07/27/19 19:00 07:00 Intake Total 730 ml 60 ml Output Total 9 ml 1400 ml Balance 721 ml -1340 ml IV Total 670 ml Tube Feeding 60 ml 60 ml Output Urine Total 1400 ml Estimated Blood Loss 9 ml Microbiology Date/Time Source Procedure Growth Status 07/11/19 12:00 Blood Blood Culture - Final NO GROWTH AFTER 5 DAYS Complete 07/04/19 10:15 Sputum Gram Stain - Final Complete 07/04/19 10:15 Sputum Culture - Final Nicolle Albicans Usual Respiratory Valery Complete 07/11/19 21:20 Urine,Clean Catch Urine Culture - Final NO GROWTH AFTER 48 HOURS Complete 07/04/19 00:43 Rectum - Final NO CARBAPENEM-RESISTANT ENTEROBACTERI... Complete Current Medications Medications (Trade) Dose Ordered Sig/Genoveva Route PRN Reason Start Time Stop Time Status Last Admin Dose Admin Acetaminophen (Tylenol) 650 mg Q6H PRN GT Mild Pain/Temp > 100.5 07/25/19 16:15 08/24/19 16:14 Acetaminophen (Tylenol) 650 mg Q6H PRN GT Headache 07/26/19 13:00 08/25/19 12:59 Acetaminophen/ Codeine Phosphate (Tylenol #3) 1 tab Q4H PRN GT Moderate Pain (Pain Scale 4-6) 07/26/19 13:00 08/02/19 12:59 Albuterol/ Ipratropium (Albuterol/ Ipratropium) 3 ml Q4H PRN HHN Shortness of Breath 07/26/19 21:30 07/31/19 21:29 Albuterol/ Ipratropium (Albuterol/ Ipratropium) 3 ml Q4HRT HHN 07/26/19 23:00 07/31/19 22:59 07/27/19 07:34 Cefoxitin Sodium 1 gm/Sodium Chloride 55 ml @ 110 mls/hr Q8HR IVPB 07/25/19 22:00 08/01/19 21:59 07/27/19 05:48 Dextrose (Dextrose 50%) 25 ml Q30M PRN IV Hypoglycemia 07/19/19 06:30 08/11/19 11:59 Dextrose (Dextrose 50%) 50 ml Q30M PRN IV Hypoglycemia 07/19/19 06:30 08/11/19 11:59 Finasteride (Proscar) 5 mg DAILY ORAL 07/19/19 09:00 08/13/19 08:59 07/26/19 12:33 Hydralazine HCl (Apresoline) 10 mg Q4H PRN IV bp over 160 syst 07/19/19 06:30 08/05/19 06:29 Insulin Aspart (NovoLOG) Q6HR SUBQ 07/19/19 12:00 08/11/19 16:29 07/25/19 13:27 Morphine Sulfate (Morphine Sulfate) 2 mg Q1H PRN IVP Severe Pain (Pain Scale 7-10) 07/26/19 13:00 08/02/19 12:59 Nitroglycerin (Ntg) 1 patch Q24H TDERMAL 07/19/19 12:30 08/05/19 12:29 07/26/19 12:34 Ondansetron HCl (Zofran) 4 mg Q6H PRN IVP Nausea & Vomiting 07/26/19 13:00 08/25/19 12:59 Pantoprazole (Protonix) 40 mg Q12HR IV 07/19/19 09:00 08/04/19 11:14 07/26/19 21:11 Polyethylene Glycol (Miralax) 17 gm DAILY GT 07/26/19 09:00 08/24/19 11:59 07/26/19 12:34 Potassium Chloride (K-Dur) 20 meq DAILY GT 07/22/19 09:00 08/21/19 08:59 07/26/19 12:33 Promethazine HCl/ Codeine (Phenergan with Codeine) 5 ml Q4H PRN GT For Cough 07/25/19 16:00 08/03/19 06:29 Sennosides (Senokot) 8.6 mg DAILY GT 07/26/19 09:00 08/24/19 11:59 07/26/19 12:33 Sodium Chloride 1,000 ml @ 75 mls/hr [id number] IV 07/22/19 16:41 08/21/19 16:40 07/27/19 03:31 Tamsulosin HCl (Flomax) 0.4 mg BEDTIME ORAL 07/19/19 21:00 08/12/19 20:59 07/26/19 21:11 Laboratory Tests 07/27/19 08:25: White Blood Count [Pending], Red Blood Count [Pending], Hemoglobin [Pending], Hematocrit [Pending], Mean Corpuscular Volume [Pending], Mean Corpuscular Hemoglobin [Pending], Mean Corpuscular Hemoglobin Concent [Pending], Red Cell Distribution Width [Pending], Platelet Count [Pending], Mean Platelet Volume [ Pending], Neutrophils (%) (Auto) [Pending], Lymphocytes (%) (Auto) [Pending], Monocytes (%) (Auto) [Pending], Eosinophils (%) (Auto) [Pending], Basophils (%) (Auto) [Pending], Sodium Level [Pending], Potassium Level [Pending], Chloride Level [Pending], Carbon Dioxide Level [Pending], Blood Urea Nitrogen [Pending], Creatinine [Pending], Estimat Glomerular Filtration Rate [Pending], Glucose Level [Pending], Calcium Level [Pending] Height (Feet): 5 Height (Inches): 6.00 Weight (Pounds): 165 Objective exam stable nixon indwelling urine yellow/kristen CT A/P (07/12) noted, KUB noted Clayton Callejas MD Jul 27, 2019 09:11
[2019-07-27 09:21] LABS: BASOPHILS % (AUTO) 0.5 % (0.0-2.0); EOSINOPHILS % (AUTO) 2.7 % (0.0-3.0); HEMATOCRIT 28.1 % (42.0-52.0); LYMPHOCYTES % (AUTO) 14.1 % (20.0-45.0); MEAN CORPUSCULAR VOLUME 86 FL (80-99); MONOCYTES % (AUTO) 6.3 % (1.0-10.0); NEUTROPHILS % (AUTO) 76.3 % (45.0-75.0); PLATELET COUNT 166 K/UL (150-450); RED BLOOD COUNT 3.26 M/UL (4.70-6.10); RED CELL DISTRIBUTION WIDTH 16.1 % (11.6-14.8); WHITE BLOOD COUNT 7.1 K/UL (4.8-10.8)
--- NOTE | 2019-07-27 09:26 | 48 Hour Post Anesthesia Eval ---
Post Anesthesia Evaluation Procedure: Permanent Pacemaker Date of Evaluation: Jul 27, 2019 Time of Evaluation: 09:25 Blood Pressure Systolic: 124 0: 56 Pulse Rate: 62 Respiratory Rate: 18 Temperature (Fahrenheit): 97.6 O2 Sat by Pulse Oximetry: 98 Airway: patent Nausea: No Vomiting: No Pain Intensity: 1 Hydration Status: adequate Cardiopulmonary Status: stable Mental Status/LOC: patient returned to baseline Follow-up Care/Observations: n/a Post-Anesthesia Complications: none Follow-up care needed: N/A Cesar Palafox MD Jul 27, 2019 09:26
[2019-07-27] MEDS: Miralax 17gm pkt GT SCH (09:52)
[2019-07-27] MEDS: Sennosides 8.6mg tab GT SCH (09:52)
[2019-07-27] MEDS: Pantoprazole Inj IV SCH ×2 (09:52→21:44)
[2019-07-27 10:00] LABS: ANION GAP 7 mmol/L (5-15); BLOOD UREA NITROGEN 17 mg/dL (7-18); CALCIUM 8.3 MG/DL (8.5-10.1); CARBON DIOXIDE 29 MMOL/L (21-32); CHLORIDE 106 MMOL/L (98-107); CREATININE 0.8 MG/DL (0.55-1.30); POTASSIUM 4.2 MMOL/L (3.5-5.1); SODIUM 142 MMOL/L (136-145)
--- NOTE | 2019-07-27 10:17 | Infectious Diseases Prog Note ---
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 Multiple nonobstructive stones within the right kidney. Thickening of the wall the urinary bladder consistent with cystitis. Juan catheter in good position. 10 x 7 cm left inguinal hernia containing bowel. No evidence of obstruction.Trace left pleural effusion. Bilateral posterior basal atelectasis. Sepsis, Sp Probable UTI, sp rx Acute hypoxic respiratory failure, intubated 07/05; extubated 07/11 Aspiration pneumonia vs pneumonitis Gram positive bacteremia- contaminant -07/18 CXR: Mild pulmonary vascular congestion may be present. Correlate clinically.Basal atelectasis versus infiltrate. No change -07/15 CXR:Infiltrate and/or pleural effusion suspected at the left lung base. Mild pulmonary vascular congestion not excluded. Correlate clinically. -07/13 CXR: Improving pulmonary venous congestion with unchanged small left pleural effusion and slight worsening of left basilar infiltrate, indeterminate between atelectasis and pneumonia -07/11 u/a wbc 2-4, nit neg, leuk +3; ucx Neg Bcx Neg -07/06 Bcx Neg -07/05 CXR:Mild CHF -u/a wbc 5-10, nit neg, leuk +2; ucx Neg -Bcx 06/08 dipteriods -sp cx usual resp rupert -CXR: No acute process -influenza sc neg -v. duplex: no DVT -V/q scan:Findings are deemed low probability for pulmonary embolus Fever; low grade, recurrent- SP Mild leukocytosis,recurrent- SP CARA;SP Dm2 dysphagia s/p GT hx of PNA parkinson disease HTN bed bound [facility] resident Plan: - Monitor off abx -07/27/19 SP Cefoxitin #4 ( Peripoerative) -07/17 SP Ceftriaxone #3 -07/15 SP Flagyl # 11, Cefepime #12 -07/09 SP IV Vancomycin #5 -07/04 SP Levaquin x1 -f/u cx -Monitor CBC/CMP, temperatures -aspiration precautions -GT care -Cards, Uro, nephro f/u -Cdiff if diarrhea Thank you for this consultation. Will continue to follow along with you. Subjective Allergies: Coded Allergies: PENICILLINS (Verified Allergy, Unknown, 07/04/19) Subjective Aferbile 2L NC No Leukocytosis Objective Vital Signs Last 24 Hour Vital Signs Date Time Temp Pulse Resp B/P (MAP) Pulse Ox O2 Delivery O2 Flow Rate FiO2 07/27/19 09:26 62 18 98 07/27/19 08:00 97.2 71 20 126/51 (76) 98 07/27/19 07:36 98 Nasal Cannula 2.0 28 07/27/19 07:36 71 20 100 Nasal Cannula 2.0 28 72 20 98 07/27/19 04:00 98.0 84 24 121/55 (77) 92 07/27/19 04:00 83 07/27/19 03:08 77 20 100 Nasal Cannula 2.0 28 74 20 98 07/27/19 00:00 97.7 86 24 129/68 (88) 96 07/27/19 00:00 83 07/26/19 23:27 81 20 98 Room Air 21 78 20 93 07/26/19 21:00 Room Air 2.0 Nasal Cannula 07/26/19 20:00 83 07/26/19 20:00 97.9 86 24 153/75 (101) 94 07/26/19 19:54 94 Nasal Cannula 2.0 28 07/26/19 16:00 77 07/26/19 16:00 97.7 79 20 137/65 (89) 94 07/26/19 12:34 143/65 07/26/19 12:00 98.1 24 137/74 (95) 97 07/26/19 12:00 76 07/26/19 11:40 98.3 74 20 143/65 100 Nasal Cannula 2 07/26/19 11:25 76 18 136/66 100 Nasal Cannula 2 07/26/19 11:15 80 18 142/68 100 Simple Mask 6 07/26/19 11:05 78 20 138/62 100 Simple Mask 6 07/26/19 11:00 78 20 148/62 100 Simple Mask 6 07/26/19 10:57 97.3 77 23 139/76 100 Simple Mask 6 07/26/19 10:53 78 16 100 Height (Feet): 5 Height (Inches): 6.00 Weight (Pounds): 165 Laboratory Tests Test 07/27/19 08:25 White Blood Count 7.1 K/UL (4.8-10.8) Red Blood Count 3.26 M/UL (4.70-6.10) L Hemoglobin 9.0 G/DL (14.2-18.0) L Hematocrit 28.1 % (42.0-52.0) L Mean Corpuscular Volume 86 FL (80-99) Mean Corpuscular Hemoglobin 27.7 PG (27.0-31.0) Mean Corpuscular Hemoglobin Concent 32.2 G/DL (32.0-36.0) Red Cell Distribution Width 16.1 % (11.6-14.8) H Platelet Count 166 K/UL (150-450) Mean Platelet Volume 7.5 FL (6.5-10.1) Neutrophils (%) (Auto) 76.3 % (45.0-75.0) H Lymphocytes (%) (Auto) 14.1 % (20.0-45.0) L Monocytes (%) (Auto) 6.3 % (1.0-10.0) Eosinophils (%) (Auto) 2.7 % (0.0-3.0) Basophils (%) (Auto) 0.5 % (0.0-2.0) Sodium Level 142 MMOL/L (136-145) Potassium Level 4.2 MMOL/L (3.5-5.1) Chloride Level 106 MMOL/L (98-107) Carbon Dioxide Level 29 MMOL/L (21-32) Anion Gap 7 mmol/L (5-15) Blood Urea Nitrogen 17 mg/dL (7-18) Creatinine 0.8 MG/DL (0.55-1.30) Estimat Glomerular Filtration Rate > 60 mL/min (>60) Glucose Level 144 MG/DL (74-106) H Calcium Level 8.3 MG/DL (8.5-10.1) L Current Medications Medications (Trade) Dose Ordered Sig/Genoveva Route PRN Reason Start Time Stop Time Status Last Admin Dose Admin Acetaminophen (Tylenol) 650 mg Q6H PRN GT Mild Pain/Temp > 100.5 07/25/19 16:15 08/24/19 16:14 Acetaminophen (Tylenol) 650 mg Q6H PRN GT Headache 07/26/19 13:00 08/25/19 12:59 Acetaminophen/ Codeine Phosphate (Tylenol #3) 1 tab Q4H PRN GT Moderate Pain (Pain Scale 4-6) 07/26/19 13:00 08/02/19 12:59 Albuterol/ Ipratropium (Albuterol/ Ipratropium) 3 ml Q4H PRN HHN Shortness of Breath 07/26/19 21:30 07/31/19 21:29 Albuterol/ Ipratropium (Albuterol/ Ipratropium) 3 ml Q4HRT HHN 07/26/19 23:00 07/31/19 22:59 07/27/19 07:34 Cefoxitin Sodium 1 gm/Sodium Chloride 55 ml @ 110 mls/hr Q8HR IVPB 07/25/19 22:00 08/01/19 21:59 07/27/19 05:48 Dextrose (Dextrose 50%) 25 ml Q30M PRN IV Hypoglycemia 07/19/19 06:30 08/11/19 11:59 Dextrose (Dextrose 50%) 50 ml Q30M PRN IV Hypoglycemia 07/19/19 06:30 08/11/19 11:59 Finasteride (Proscar) 5 mg DAILY ORAL 07/19/19 09:00 08/13/19 08:59 07/27/19 09:52 Hydralazine HCl (Apresoline) 10 mg Q4H PRN IV bp over 160 syst 07/19/19 06:30 08/05/19 06:29 Insulin Aspart (NovoLOG) Q6HR SUBQ 07/19/19 12:00 08/11/19 16:29 07/25/19 13:27 Morphine Sulfate (Morphine Sulfate) 2 mg Q1H PRN IVP Severe Pain (Pain Scale 7-10) 07/26/19 13:00 08/02/19 12:59 Nitroglycerin (Ntg) 1 patch Q24H TDERMAL 07/19/19 12:30 08/05/19 12:29 07/26/19 12:34 Ondansetron HCl (Zofran) 4 mg Q6H PRN IVP Nausea & Vomiting 07/26/19 13:00 08/25/19 12:59 Pantoprazole (Protonix) 40 mg Q12HR IV 07/19/19 09:00 08/04/19 11:14 07/27/19 09:52 Polyethylene Glycol (Miralax) 17 gm DAILY GT 07/26/19 09:00 08/24/19 11:59 07/27/19 09:52 Potassium Chloride (K-Dur) 20 meq DAILY GT 07/22/19 09:00 08/21/19 08:59 07/27/19 09:52 Promethazine HCl/ Codeine (Phenergan with Codeine) 5 ml Q4H PRN GT For Cough 07/25/19 16:00 08/03/19 06:29 Sennosides (Senokot) 8.6 mg DAILY GT 07/26/19 09:00 08/24/19 11:59 07/27/19 09:52 Sodium Chloride 1,000 ml @ 75 mls/hr [id number] IV 07/22/19 16:41 08/21/19 16:40 07/27/19 03:31 Tamsulosin HCl (Flomax) 0.4 mg BEDTIME ORAL 07/19/19 21:00 08/12/19 20:59 07/26/19 21:11 Panda Douglas MD Jul 27, 2019 10:17
--- NOTE | 2019-07-27 11:14 | Nephrology Progress Note ---
Assessment/Plan Problem List: (1) RIA (acute kidney injury) (2) Cardiac arrest with successful resuscitation (3) Respiratory failure with hypoxia (4) Hydronephrosis Assessment patient have Ria due to Low BP and s/p arrest elevated liver enzymes for same reason others: 1. Acute hypoxemic respiratory failure. 2. Hypotension possible sepsis. 3. Diabetes type 2. 4. Parkinson disease. 5. Hypercholesterolemia. 6. EjFx 65% reported 7. Dysphagia. 8. Benign prostatic hypertrophy. Plan s/p Cr 1.6 now wnl Extubated 07/11 Nitro- Phos , K , Mag supplement as needed keep BP above 100 syst Pulm support monitor renal parameters discussed with RN VALENTINA: Moderate left hydronephrosis. Juan catheter. Echogenic right kidney. Suspected medical renal disease. CXR 07/15 IMPRESSION: Infiltrate and/or pleural effusion suspected at the left lung base. Mild pulmonary vascular congestion not excluded. Correlate clinically. Subjective ROS Limited/Unobtainable: No Constitutional: Reports: malaise Objective Objective Last 24 Hour Vital Signs Date Time Temp Pulse Resp B/P (MAP) Pulse Ox O2 Delivery O2 Flow Rate FiO2 07/27/19 09:26 62 18 98 07/27/19 08:00 97.2 71 20 126/51 (76) 98 07/27/19 07:45 71 07/27/19 07:36 98 Nasal Cannula 2.0 28 07/27/19 07:36 71 20 100 Nasal Cannula 2.0 28 72 20 98 07/27/19 04:00 98.0 84 24 121/55 (77) 92 07/27/19 04:00 83 07/27/19 03:08 77 20 100 Nasal Cannula 2.0 28 74 20 98 07/27/19 00:00 97.7 86 24 129/68 (88) 96 07/27/19 00:00 83 07/26/19 23:27 81 20 98 Room Air 21 78 20 93 07/26/19 21:00 Room Air 2.0 Nasal Cannula 07/26/19 20:00 83 07/26/19 20:00 97.9 86 24 153/75 (101) 94 07/26/19 19:54 94 Nasal Cannula 2.0 28 07/26/19 16:00 77 07/26/19 16:00 97.7 79 20 137/65 (89) 94 07/26/19 12:34 143/65 07/26/19 12:00 98.1 24 137/74 (95) 97 07/26/19 12:00 76 07/26/19 11:40 98.3 74 20 143/65 100 Nasal Cannula 2 07/26/19 11:25 76 18 136/66 100 Nasal Cannula 2 07/26/19 11:15 80 18 142/68 100 Simple Mask 6 Intake and Output 07/26/19 07/27/19 19:00 07:00 Intake Total 730 ml 60 ml Output Total 9 ml 1400 ml Balance 721 ml -1340 ml IV Total 670 ml Tube Feeding 60 ml 60 ml Output Urine Total 1400 ml Estimated Blood Loss 9 ml Laboratory Tests 07/27/19 08:25: White Blood Count 7.1, Red Blood Count 3.26L, Hemoglobin 9.0L, Hematocrit 28.1L , Mean Corpuscular Volume 86, Mean Corpuscular Hemoglobin 27.7, Mean Corpuscular Hemoglobin Concent 32.2, Red Cell Distribution Width 16.1H, Platelet Count 166, Mean Platelet Volume 7.5, Neutrophils (%) (Auto) 76.3H, Lymphocytes (%) (Auto) 14.1L, Monocytes (%) (Auto) 6.3, Eosinophils (%) (Auto) 2.7, Basophils (%) (Auto) 0.5, Sodium Level 142, Potassium Level 4.2, Chloride Level 106, Carbon Dioxide Level 29, Anion Gap 7, Blood Urea Nitrogen 17, Creatinine 0.8, Estimat Glomerular Filtration Rate > 60, Glucose Level 144H, Calcium Level 8.3L Height (Feet): 5 Height (Inches): 6.00 Weight (Pounds): 165 General Appearance: no apparent distress Cardiovascular: normal rate Respiratory/Chest: decreased breath sounds Abdomen: distended Objective no change Oskar Mohr MD Jul 27, 2019 11:14
--- NOTE | 2019-07-27 11:29 | Pulmonology Progress Note ---
Assessment/Plan Assessment/Plan ASSESSMENT shock s/p bradycardic arrest with successful resuscitation Acute hypoxemic respiratory failure requiring intubation, s/p extubation 07/11 Elevated troponin/NSTEMI likely due to cardiac arrest s/p 07/26 dual-chamber permanent pacemaker implantation. Sepsis Probable UTI Aspiration pneumonia versus pneumonitis Left hydronephrosis with obstructive uropathy s/p cystoscopy with left ureteroscopy, retrograde pyelogram, laser lithotripsy, stone extraction, stent placement, and right shockwave lithotripsy 07/24 Acute kidney injury-resolved Dehydration Hyponatremia Dysphagia feeding by G-tube Diabetes mellitus Parkinson disease Anemia PLAN OF CARE tele s/p extubation 07/11 remains on NC with stable pusle ox O2 titrate to keep sat above 90%, HHN CXR 07/13 - > Improving pulmonary venous congestion with unchanged small left pleural effusion and slight worsening of left basilar infiltrate, indeterminate between atelectasis and pneumonia Venous Duplex negative VQ scan with low prob of PE s/p 07/26 dual-chamber permanent pacemaker implantation pain management prn, L arm sling abx as per ID-completed monitor off abx monitor h/d status - improved; off any AV blocking agents cardio follows ECHO with pEF 60% and RVSP of 32 off stress dose of steroids IVF, monitor renal parameters, correct lytes prn calcium WNL if corrected for low albumin / as per nephro explanation renal US+mod L hydro CT A/P Moderate left hydroureteronephrosis secondary to a 1.5 cm left mid to distal ureter stone. Multiple nonobstructive stones within the right kidney. Thickening of the wall the urinary bladder consistent with cystitis. Juan catheter in good position. 10 x 7 cm left inguinal hernia containing bowel. No evidence of obstruction. urologist and nephro follows s/p Cystoscopy with left ureteroscopy, retrograde pyelogram, laser lithotripsy, stone extraction, stent placement, and right shockwave lithotripsy Flomax and Proscar Juan keep as per urologist recs, hand irrigation prn GTF, asp precautions BS management with SSI case discussed and evaluated by supervising physician Subjective Allergies: Coded Allergies: PENICILLINS (Verified Allergy, Unknown, 07/04/19) Subjective extubated 07/11, mild leukocytosis resolved pulse ox stable on o2 via NC s/p pacemaker placement 07/26 Objective Last 24 Hour Vital Signs Date Time Temp Pulse Resp B/P (MAP) Pulse Ox O2 Delivery O2 Flow Rate FiO2 07/27/19 09:26 62 18 98 07/27/19 08:00 97.2 71 20 126/51 (76) 98 07/27/19 07:45 71 07/27/19 07:36 98 Nasal Cannula 2.0 28 07/27/19 07:36 71 20 100 Nasal Cannula 2.0 28 72 20 98 07/27/19 04:00 98.0 84 24 121/55 (77) 92 07/27/19 04:00 83 07/27/19 03:08 77 20 100 Nasal Cannula 2.0 28 74 20 98 07/27/19 00:00 97.7 86 24 129/68 (88) 96 07/27/19 00:00 83 07/26/19 23:27 81 20 98 Room Air 21 78 20 93 07/26/19 21:00 Room Air 2.0 Nasal Cannula 07/26/19 20:00 83 07/26/19 20:00 97.9 86 24 153/75 (101) 94 07/26/19 19:54 94 Nasal Cannula 2.0 28 07/26/19 16:00 77 07/26/19 16:00 97.7 79 20 137/65 (89) 94 07/26/19 12:34 143/65 07/26/19 12:00 98.1 24 137/74 (95) 97 07/26/19 12:00 76 07/26/19 11:40 98.3 74 20 143/65 100 Nasal Cannula 2 Intake and Output 07/26/19 07/27/19 18:59 06:59 Intake Total 805 ml 60 ml Output Total 9 ml 1400 ml Balance 796 ml -1340 ml IV Total 745 ml Tube Feeding 60 ml 60 ml Output Urine Total 1400 ml Estimated Blood Loss 9 ml Objective General Appearance: no acute distress HEENT: normocephalic, atraumatic, anicteric Respiratory/Chest: lungs clear, no accessory muscle use, left upper chest pacemaker Cardiovascular: normal rate, V pacing Abdomen: normal bowel sounds, non distended, G tube Extremities: no edema, pedal pulses normal, sling LUE Neurologic/Psychiatric: abnormal gait Musculoskeletal: atrophy Laboratory Tests 07/27/19 08:25: White Blood Count 7.1, Red Blood Count 3.26L, Hemoglobin 9.0L, Hematocrit 28.1L , Mean Corpuscular Volume 86, Mean Corpuscular Hemoglobin 27.7, Mean Corpuscular Hemoglobin Concent 32.2, Red Cell Distribution Width 16.1H, Platelet Count 166, Mean Platelet Volume 7.5, Neutrophils (%) (Auto) 76.3H, Lymphocytes (%) (Auto) 14.1L, Monocytes (%) (Auto) 6.3, Eosinophils (%) (Auto) 2.7, Basophils (%) (Auto) 0.5, Sodium Level 142, Potassium Level 4.2, Chloride Level 106, Carbon Dioxide Level 29, Anion Gap 7, Blood Urea Nitrogen 17, Creatinine 0.8, Estimat Glomerular Filtration Rate > 60, Glucose Level 144H, Calcium Level 8.3L Current Medications Medications (Trade) Dose Ordered Sig/Genoveva Route PRN Reason Start Time Stop Time Status Last Admin Dose Admin Acetaminophen (Tylenol) 650 mg Q6H PRN GT Mild Pain/Temp > 100.5 07/25/19 16:15 08/24/19 16:14 Acetaminophen (Tylenol) 650 mg Q6H PRN GT Headache 07/26/19 13:00 08/25/19 12:59 Acetaminophen/ Codeine Phosphate (Tylenol #3) 1 tab Q4H PRN GT Moderate Pain (Pain Scale 4-6) 07/26/19 13:00 08/02/19 12:59 Albuterol/ Ipratropium (Albuterol/ Ipratropium) 3 ml Q4H PRN HHN Shortness of Breath 07/26/19 21:30 07/31/19 21:29 Albuterol/ Ipratropium (Albuterol/ Ipratropium) 3 ml Q4HRT HHN 07/26/19 23:00 07/31/19 22:59 07/27/19 07:34 Dextrose (Dextrose 50%) 25 ml Q30M PRN IV Hypoglycemia 07/19/19 06:30 08/11/19 11:59 Dextrose (Dextrose 50%) 50 ml Q30M PRN IV Hypoglycemia 07/19/19 06:30 08/11/19 11:59 Finasteride (Proscar) 5 mg DAILY ORAL 07/19/19 09:00 08/13/19 08:59 07/27/19 09:52 Hydralazine HCl (Apresoline) 10 mg Q4H PRN IV bp over 160 syst 07/19/19 06:30 08/05/19 06:29 Insulin Aspart (NovoLOG) Q6HR SUBQ 07/19/19 12:00 08/11/19 16:29 07/25/19 13:27 Morphine Sulfate (Morphine Sulfate) 2 mg Q1H PRN IVP Severe Pain (Pain Scale 7-10) 07/26/19 13:00 08/02/19 12:59 Nitroglycerin (Ntg) 1 patch Q24H TDERMAL 07/19/19 12:30 08/05/19 12:29 07/26/19 12:34 Ondansetron HCl (Zofran) 4 mg Q6H PRN IVP Nausea & Vomiting 07/26/19 13:00 08/25/19 12:59 Pantoprazole (Protonix) 40 mg Q12HR IV 07/19/19 09:00 08/04/19 11:14 07/27/19 09:52 Polyethylene Glycol (Miralax) 17 gm DAILY GT 07/26/19 09:00 08/24/19 11:59 07/27/19 09:52 Potassium Chloride (K-Dur) 20 meq DAILY GT 07/22/19 09:00 08/21/19 08:59 07/27/19 09:52 Promethazine HCl/ Codeine (Phenergan with Codeine) 5 ml Q4H PRN GT For Cough 07/25/19 16:00 08/03/19 06:29 Sennosides (Senokot) 8.6 mg DAILY GT 07/26/19 09:00 08/24/19 11:59 07/27/19 09:52 Sodium Chloride 1,000 ml @ 75 mls/hr [id number] IV 07/22/19 16:41 08/21/19 16:40 07/27/19 03:31 Tamsulosin HCl (Flomax) 0.4 mg BEDTIME ORAL 07/19/19 21:00 08/12/19 20:59 07/26/19 21:11 Valerie Balderrama PRINCIPAL TECH[employer]ICAL ARCHITECT Jul 27, 2019 11:29
[2019-07-27 12:00] VITALS: BP 158/76
--- NOTE | 2019-07-27 12:52 | Cardiac Electrophysiology PN ---
Assessment/Plan Assessment/Plan 1. [place] fib with RVR.Add Lopressor 25 mg PEG bid now that he has pacver. 2. Status post bradycardic arrest off any sinus node or AV destinee blocking agents. Non infarctional. Tachy hillary as also develops atrial fib with RVR. S/P DDD [facility] [place] PPM implant 07/26/19. 3. NSTEMI. Due to arrest. Add Lopressor 25 bid 4. Respiratory failure. D. Dimer positive. VQ scan pre code was low probability. Extubated 07/11/19 5. Dehydration and hyperatremia, resolved 6. S/P PEG 7. Diabetes. 8. Benign prostatic hypertrophy.FU Dr. Callejas. S/P CT abdomen that showed Left hydronephrosis. Tolerated Cystoscopy, Ureteroscopy and Laser lithotripsy and ureteral stent by Dr Callejas Alert with no CP. EF 65% 9. Full code. CARI RN Subjective Subjective In atrial fib. S/P DDD [facility] [place] PPM implant yesterday that interrogated and showed Nl Fx today Objective Last 24 Hour Vital Signs Date Time Temp Pulse Resp B/P (MAP) Pulse Ox O2 Delivery O2 Flow Rate FiO2 07/27/19 11:32 82 22 99 Nasal Cannula 2.0 28 78 22 94 07/27/19 09:26 62 18 98 07/27/19 09:00 Nasal Cannula 2.0 Nasal Cannula 2.0 07/27/19 08:00 97.2 71 20 126/51 (76) 98 07/27/19 07:45 71 07/27/19 07:36 98 Nasal Cannula 2.0 28 07/27/19 07:36 71 20 100 Nasal Cannula 2.0 28 72 20 98 07/27/19 04:00 98.0 84 24 121/55 (77) 92 07/27/19 04:00 83 07/27/19 03:08 77 20 100 Nasal Cannula 2.0 28 74 20 98 07/27/19 00:00 97.7 86 24 129/68 (88) 96 07/27/19 00:00 83 07/26/19 23:27 81 20 98 Room Air 21 78 20 93 07/26/19 21:00 Room Air 2.0 Nasal Cannula 07/26/19 20:00 83 07/26/19 20:00 97.9 86 24 153/75 (101) 94 07/26/19 19:54 94 Nasal Cannula 2.0 28 07/26/19 16:00 77 07/26/19 16:00 97.7 79 20 137/65 (89) 94 Intake and Output 07/26/19 07/27/19 19:00 07:00 Intake Total 730 ml 60 ml Output Total 9 ml 1400 ml Balance 721 ml -1340 ml IV Total 670 ml Tube Feeding 60 ml 60 ml Output Urine Total 1400 ml Estimated Blood Loss 9 ml Laboratory Tests Test 07/27/19 08:25 White Blood Count 7.1 K/UL (4.8-10.8) Red Blood Count 3.26 M/UL (4.70-6.10) L Hemoglobin 9.0 G/DL (14.2-18.0) L Hematocrit 28.1 % (42.0-52.0) L Mean Corpuscular Volume 86 FL (80-99) Mean Corpuscular Hemoglobin 27.7 PG (27.0-31.0) Mean Corpuscular Hemoglobin Concent 32.2 G/DL (32.0-36.0) Red Cell Distribution Width 16.1 % (11.6-14.8) H Platelet Count 166 K/UL (150-450) Mean Platelet Volume 7.5 FL (6.5-10.1) Neutrophils (%) (Auto) 76.3 % (45.0-75.0) H Lymphocytes (%) (Auto) 14.1 % (20.0-45.0) L Monocytes (%) (Auto) 6.3 % (1.0-10.0) Eosinophils (%) (Auto) 2.7 % (0.0-3.0) Basophils (%) (Auto) 0.5 % (0.0-2.0) Sodium Level 142 MMOL/L (136-145) Potassium Level 4.2 MMOL/L (3.5-5.1) Chloride Level 106 MMOL/L (98-107) Carbon Dioxide Level 29 MMOL/L (21-32) Anion Gap 7 mmol/L (5-15) Blood Urea Nitrogen 17 mg/dL (7-18) Creatinine 0.8 MG/DL (0.55-1.30) Estimat Glomerular Filtration Rate > 60 mL/min (>60) Glucose Level 144 MG/DL (74-106) H Calcium Level 8.3 MG/DL (8.5-10.1) L Objective HEAD AND NECK: Mild JVD. LUNGS: Decreased breath sounds. CARDIOVASCULAR: IRRR . Pacer left subclavian no hematoma. No G/R/M ABDOMEN: Status post G-tube. EXTREMITIES: No pitting edema. Enio Santos MD Jul 27, 2019 12:52
[2019-07-27] MEDS: Nitroglycerin Patch 0.4mg TDERMAL SCH (13:27)
[2019-07-27 16:00] VITALS: BP 145/73
--- NOTE | 2019-07-27 16:42 | Internal Med Progress Note ---
Subjective Date of Service: Jul 27, 2019 Physician Name Shukri Glover Attending Physician Rayshawn Woods MD Current Medications Medications (Trade) Dose Ordered Sig/Genoveva Route PRN Reason Start Time Stop Time Status Last Admin Dose Admin Acetaminophen (Tylenol) 650 mg Q6H PRN GT Mild Pain/Temp > 100.5 07/25/19 16:15 08/24/19 16:14 Acetaminophen (Tylenol) 650 mg Q6H PRN GT Headache 07/26/19 13:00 08/25/19 12:59 Acetaminophen/ Codeine Phosphate (Tylenol #3) 1 tab Q4H PRN GT Moderate Pain (Pain Scale 4-6) 07/26/19 13:00 08/02/19 12:59 Albuterol/ Ipratropium (Albuterol/ Ipratropium) 3 ml Q4H PRN HHN Shortness of Breath 07/26/19 21:30 07/31/19 21:29 Albuterol/ Ipratropium (Albuterol/ Ipratropium) 3 ml Q4HRT HHN 07/26/19 23:00 07/31/19 22:59 07/27/19 15:07 Dextrose (Dextrose 50%) 25 ml Q30M PRN IV Hypoglycemia 07/19/19 06:30 08/11/19 11:59 Dextrose (Dextrose 50%) 50 ml Q30M PRN IV Hypoglycemia 07/19/19 06:30 08/11/19 11:59 Finasteride (Proscar) 5 mg DAILY ORAL 07/19/19 09:00 08/13/19 08:59 07/27/19 09:52 Hydralazine HCl (Apresoline) 10 mg Q4H PRN IV bp over 160 syst 07/19/19 06:30 08/05/19 06:29 Insulin Aspart (NovoLOG) Q6HR SUBQ 07/19/19 12:00 08/11/19 16:29 07/25/19 13:27 Metoprolol Tartrate (Lopressor) 25 mg Q12HR ORAL 07/27/19 21:00 08/26/19 20:59 Morphine Sulfate (Morphine Sulfate) 2 mg Q1H PRN IVP Severe Pain (Pain Scale 7-10) 07/26/19 13:00 08/02/19 12:59 Nitroglycerin (Ntg) 1 patch Q24H TDERMAL 07/19/19 12:30 08/05/19 12:29 07/27/19 13:27 Ondansetron HCl (Zofran) 4 mg Q6H PRN IVP Nausea & Vomiting 07/26/19 13:00 08/25/19 12:59 Pantoprazole (Protonix) 40 mg Q12HR IV 07/19/19 09:00 08/04/19 11:14 07/27/19 09:52 Polyethylene Glycol (Miralax) 17 gm DAILY GT 07/26/19 09:00 08/24/19 11:59 07/27/19 09:52 Potassium Chloride (K-Dur) 20 meq DAILY GT 07/22/19 09:00 08/21/19 08:59 07/27/19 09:52 Promethazine HCl/ Codeine (Phenergan with Codeine) 5 ml Q4H PRN GT For Cough 07/25/19 16:00 08/03/19 06:29 Sennosides (Senokot) 8.6 mg DAILY GT 07/26/19 09:00 08/24/19 11:59 07/27/19 09:52 Sodium Chloride 1,000 ml @ 75 mls/hr [id number] IV 07/22/19 16:41 08/21/19 16:40 07/27/19 16:17 Tamsulosin HCl (Flomax) 0.4 mg BEDTIME ORAL 07/19/19 21:00 08/12/19 20:59 07/26/19 21:11 Allergies: Coded Allergies: PENICILLINS (Verified Allergy, Unknown, 07/04/19) ROS Limited/Unobtainable: Yes Subjective 83 YO M admitted with dyspnea, now respiratory failure. Cover for Int Chris-Dr Woods. Extubated 07/11/19. S/P cystoscopy/left ureteroscopy/stent/right ESWL 07/24/19. S/P Pacemaker implantation on Monday07/26/19. Objective Last Vital Signs Date Time Temp Pulse Resp B/P (MAP) Pulse Ox O2 Delivery O2 Flow Rate FiO2 07/27/19 15:07 79 20 99 Nasal Cannula 2.0 28 76 20 96 07/27/19 13:27 158/76 07/27/19 12:00 97.5 Laboratory Tests Test 07/27/19 08:25 White Blood Count 7.1 K/UL (4.8-10.8) Red Blood Count 3.26 M/UL (4.70-6.10) L Hemoglobin 9.0 G/DL (14.2-18.0) L Hematocrit 28.1 % (42.0-52.0) L Mean Corpuscular Volume 86 FL (80-99) Mean Corpuscular Hemoglobin 27.7 PG (27.0-31.0) Mean Corpuscular Hemoglobin Concent 32.2 G/DL (32.0-36.0) Red Cell Distribution Width 16.1 % (11.6-14.8) H Platelet Count 166 K/UL (150-450) Mean Platelet Volume 7.5 FL (6.5-10.1) Neutrophils (%) (Auto) 76.3 % (45.0-75.0) H Lymphocytes (%) (Auto) 14.1 % (20.0-45.0) L Monocytes (%) (Auto) 6.3 % (1.0-10.0) Eosinophils (%) (Auto) 2.7 % (0.0-3.0) Basophils (%) (Auto) 0.5 % (0.0-2.0) Sodium Level 142 MMOL/L (136-145) Potassium Level 4.2 MMOL/L (3.5-5.1) Chloride Level 106 MMOL/L (98-107) Carbon Dioxide Level 29 MMOL/L (21-32) Anion Gap 7 mmol/L (5-15) Blood Urea Nitrogen 17 mg/dL (7-18) Creatinine 0.8 MG/DL (0.55-1.30) Estimat Glomerular Filtration Rate > 60 mL/min (>60) Glucose Level 144 MG/DL (74-106) H Calcium Level 8.3 MG/DL (8.5-10.1) L Intake and Output 07/26/19 07/27/19 19:00 07:00 Intake Total 730 ml 60 ml Output Total 9 ml 1400 ml Balance 721 ml -1340 ml IV Total 670 ml Tube Feeding 60 ml 60 ml Output Urine Total 1400 ml Estimated Blood Loss 9 ml Objective PHYSICAL EXAMINATION: GENERAL: The patient is a well-developed and well-nourished male, in moderate respiratory distress. HEENT: Eyes, pupils are equal and responsive to light and accommodation. Extraocular movements are intact. NECK: Supple without lymphadenopathy. CHEST: nasal canula; Coarse breath sounds bilaterally with expiratory wheezes. Otherwise, without crackles. ABDOMINAL: Soft, nontender, and nondistended. Positive bowel sounds. No evidence of hepatosplenomegaly. Currently, no rebound or guarding noted. CARDIOVASCULAR: Tachycardic. Regular rhythm. S1 and S2 are normal without murmurs, rubs, or gallops. GENITOURINARY: Deferred. NEUROLOGICAL: Cranial nerves II to XII are grossly intact without focal deficits. EXTREMITIES: Negative for clubbing, cyanosis, or edema. Assessment/Plan Assessment/Plan ASSESSMENT: This is an 83-year-old male. 1. Dyspnea. 2. Respiratory distress. 3. Diabetes type 2. 4. Parkinson disease. 5. Hypercholesterolemia. 6. Dilated cardiomyopathy. 7. Dysphagia. 8. Benign prostatic hypertrophy. 9. 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 NSTEMI TREATMENT: 1. Dyspnea/respiratory distress. A Pulmonary consultation has been obtained with Dr. Kathryn Lopez. The patient is currently extubated. ABX=Ceftriaxone. We will follow recommendations of Pulmonary. 2. Diabetes type 2. 3. Hypercholesterolemia. 4. Dilated cardiomyopathy. 5. Dysphagia. The patient is status post PEG placement. 6. Hypertensive heart disease. 7. Benign prostatic hypertrophy. 8. ID=DR. Page 9. Urology = Dr. Callejas; S/P for cystoscopy/left ureteroscopy/stent/right ESWL 07/24/19 10. cardiology = Dr Santos 11. S/P Pacemaker implantation on Mon07/26/19 Shukri Glover MD Jul 27, 2019 16:42
--- NOTE | 2019-07-27 18:06 | NUR ---
NURSE NOTES: Reported red colored urine to Dr Woods.
--- NOTE | 2019-07-27 19:50 | NUR ---
NURSE NOTES: Received pt from VIRGIL Romeor. Pt awake, alert, and talkative. Bed in lowest position. Call light within reach. Will continue to monitor.
[2019-07-27 20:00] VITALS: BP 126/67
--- NOTE | 2019-07-27 20:05 | NUR ---
HAND-OFF: Report given to VIRGIL Sanchez. Endorsed plan of care.
[2019-07-27] MEDS: Tamsulosin 0.4mg cap ORAL SCH (21:43)
[2019-07-28] VITALS: BP 108/50
[2019-07-28] MEDS: Albuterol/Ipratropium 3ml neb HHN SCH ×5 (03:34→19:59)
[2019-07-28 04:00] VITALS: BP 110/56
[2019-07-28] MEDS: NovoLOG Insulin Flexpen SUBQ SCH ×4 (05:22→18:00)
--- NOTE | 2019-07-28 07:48 | NUR ---
NURSE NOTES: Received bedside report from Laura HERMAN. Pt. in bed, awake, a/o x 2-3. No sign of distress. On O2 at 2LPM via NC. Denies pain at present. HOB elevated at all times. On GTF Vital AF 1.2 at 60cc/hr. F/C in placed patent/intact draining yellow colored urine. Pacemaker site at left upper chest no bleeding noted. IV site at right FA 20g. patent/intact running NS at 75cc/hr. Bed in low position, locked. Call light within reach. Will cont. to monitor.
--- NOTE | 2019-07-28 07:48 | NUR ---
HAND-OFF: Report given to VIRGIL Shelton. Pt stable.
[2019-07-28 08:00] VITALS: BP 101/56
[2019-07-28 08:53] LABS: BASOPHILS % (AUTO) 0.6 % (0.0-2.0); EOSINOPHILS % (AUTO) 4.6 % (0.0-3.0); HEMOGLOBIN 8.1 G/DL (14.2-18.0); LYMPHOCYTES % (AUTO) 13.9 % (20.0-45.0); MEAN CORPUSCULAR VOLUME 85 FL (80-99); MONOCYTES % (AUTO) 6.1 % (1.0-10.0); NEUTROPHILS % (AUTO) 74.9 % (45.0-75.0); PLATELET COUNT 153 K/UL (150-450); RED BLOOD COUNT 2.93 M/UL (4.70-6.10); RED CELL DISTRIBUTION WIDTH 15.5 % (11.6-14.8); WHITE BLOOD COUNT 6.3 K/UL (4.8-10.8)
[2019-07-28 08:56] LABS: ANION GAP 5 mmol/L (5-15); BLOOD UREA NITROGEN 16 mg/dL (7-18); CALCIUM 8.5 MG/DL (8.5-10.1); CARBON DIOXIDE 31 MMOL/L (21-32); CHLORIDE 105 MMOL/L (98-107); CREATININE 0.7 MG/DL (0.55-1.30); POTASSIUM 4.3 MMOL/L (3.5-5.1); SODIUM 140 MMOL/L (136-145)
[2019-07-28] MEDS: Miralax 17gm pkt GT SCH (08:57)
[2019-07-28] MEDS: Sennosides 8.6mg tab GT SCH (08:58)
[2019-07-28] MEDS: Pantoprazole Inj IV SCH ×2 (08:58→20:25)
--- NOTE | 2019-07-28 09:07 | Urology Progress Note ---
Assessment/Plan Assessment/Plan: 1. Left-sided hydronephrosis, poss chronic. 2. Proteinuria. 3. Hematuria. 4. Pyuria. 5. Urinary retention. 6. BPH history. 7. Rule out neurogenic bladder. 8. Mild acute kidney injury, improved. 9. Left ureteral calculus. 10. Right renal calculi. 11. Cystitis. 12. Left inguinal hernia. 13. POD # 4, left ureteroscopy/laser litho/stent, right ESWL monitor clinically maintain nixon hand irrigate PRN cath secured to pt's leg s/p abx prophylaxis monitor renal fxn flomax and proscar added voiding trial soon Subjective Allergies: Coded Allergies: PENICILLINS (Verified Allergy, Unknown, 07/04/19) Subjective all noted, looks comfortable, pacemaker placed 07/26 Objective Last 24 Hour Vital Signs Date Time Temp Pulse Resp B/P (MAP) Pulse Ox O2 Delivery O2 Flow Rate FiO2 07/28/19 08:58 66 101/56 07/28/19 08:00 97.9 66 22 101/56 (71) 100 07/28/19 07:30 59 20 98 Nasal Cannula 2.0 28 55 20 95 07/28/19 07:30 94 Nasal Cannula 2.0 28 07/28/19 04:00 97.2 75 25 110/56 (74) 98 07/28/19 04:00 73 07/28/19 03:45 69 20 99 Nasal Cannula 2.0 28 07/28/19 03:34 64 20 98 Nasal Cannula 2.0 28 07/28/19 00:00 97.3 61 20 108/50 (69) 96 07/28/19 00:00 65 07/27/19 23:50 66 20 99 Nasal Cannula 2.0 28 07/27/19 23:40 65 20 97 Nasal Cannula 2.0 28 07/27/19 21:43 78 126/67 07/27/19 21:00 Room Air 2.0 Nasal Cannula 07/27/19 20:00 75 07/27/19 20:00 97.1 78 24 126/67 (86) 100 07/27/19 19:39 77 20 99 Nasal Cannula 2.0 28 07/27/19 19:29 75 20 93 Nasal Cannula 2.0 28 07/27/19 19:29 93 Nasal Cannula 2.0 28 2/22/20 16:35 79 07/27/19 16:00 97.9 72 20 145/73 (97) 100 07/27/19 15:07 79 20 99 Nasal Cannula 2.0 28 76 20 96 07/27/19 13:27 158/76 07/27/19 12:00 97.5 72 18 158/76 (103) 98 07/27/19 11:46 76 07/27/19 11:32 82 22 99 Nasal Cannula 2.0 28 78 22 94 07/27/19 09:26 62 18 98 Intake and Output 07/27/19 07/28/19 19:00 07:00 Output Total 1200 ml 800 ml Balance -1200 ml -800 ml Output Urine Total 1200 ml 800 ml # Bowel Movements 1 Microbiology Date/Time Source Procedure Growth Status 07/11/19 12:00 Blood Blood Culture - Final NO GROWTH AFTER 5 DAYS Complete 07/04/19 10:15 Sputum Gram Stain - Final Complete 07/04/19 10:15 Sputum Culture - Final Nicolle Albicans Usual Respiratory Valery Complete 07/11/19 21:20 Urine,Clean Catch Urine Culture - Final NO GROWTH AFTER 48 HOURS Complete 07/04/19 00:43 Rectum - Final NO CARBAPENEM-RESISTANT ENTEROBACTERI... Complete Current Medications Medications (Trade) Dose Ordered Sig/Genoveva Route PRN Reason Start Time Stop Time Status Last Admin Dose Admin Acetaminophen (Tylenol) 650 mg Q6H PRN GT Mild Pain/Temp > 100.5 07/25/19 16:15 08/24/19 16:14 Acetaminophen (Tylenol) 650 mg Q6H PRN GT Headache 07/26/19 13:00 08/25/19 12:59 Acetaminophen/ Codeine Phosphate (Tylenol #3) 1 tab Q4H PRN GT Moderate Pain (Pain Scale 4-6) 07/26/19 13:00 08/02/19 12:59 Albuterol/ Ipratropium (Albuterol/ Ipratropium) 3 ml Q4H PRN HHN Shortness of Breath 07/26/19 21:30 07/31/19 21:29 Albuterol/ Ipratropium (Albuterol/ Ipratropium) 3 ml Q4HRT HHN 07/26/19 23:00 07/31/19 22:59 07/28/19 07:42 Dextrose (Dextrose 50%) 25 ml Q30M PRN IV Hypoglycemia 2/14/20 06:30 08/11/19 11:59 Dextrose (Dextrose 50%) 50 ml Q30M PRN IV Hypoglycemia 07/19/19 06:30 08/11/19 11:59 Finasteride (Proscar) 5 mg DAILY ORAL 07/19/19 09:00 08/13/19 08:59 07/28/19 08:58 Hydralazine HCl (Apresoline) 10 mg Q4H PRN IV bp over 160 syst 07/19/19 06:30 08/05/19 06:29 Insulin Aspart (NovoLOG) Q6HR SUBQ 07/19/19 12:00 08/11/19 16:29 07/25/19 13:27 Metoprolol Tartrate (Lopressor) 25 mg Q12HR ORAL 07/27/19 21:00 08/26/19 20:59 07/27/19 21:43 Morphine Sulfate (Morphine Sulfate) 2 mg Q1H PRN IVP Severe Pain (Pain Scale 7-10) 07/26/19 13:00 08/02/19 12:59 Nitroglycerin (Ntg) 1 patch Q24H TDERMAL 07/19/19 12:30 08/05/19 12:29 07/27/19 13:27 Ondansetron HCl (Zofran) 4 mg Q6H PRN IVP Nausea & Vomiting 07/26/19 13:00 08/25/19 12:59 Pantoprazole (Protonix) 40 mg Q12HR IV 07/19/19 09:00 08/04/19 11:14 07/28/19 08:58 Polyethylene Glycol (Miralax) 17 gm DAILY GT 07/26/19 09:00 08/24/19 11:59 07/28/19 08:57 Potassium Chloride (K-Dur) 20 meq DAILY GT 07/22/19 09:00 08/21/19 08:59 07/28/19 08:58 Promethazine HCl/ Codeine (Phenergan with Codeine) 5 ml Q4H PRN GT For Cough 07/25/19 16:00 08/03/19 06:29 Sennosides (Senokot) 8.6 mg DAILY GT 07/26/19 09:00 08/24/19 11:59 2/23/20 08:58 Sodium Chloride 1,000 ml @ 75 mls/hr [id number] IV 07/22/19 16:41 08/21/19 16:40 07/28/19 06:01 Tamsulosin HCl (Flomax) 0.4 mg BEDTIME ORAL 07/19/19 21:00 08/12/19 20:59 07/27/19 21:43 Laboratory Tests 07/28/19 07:11: White Blood Count 6.3, Red Blood Count 2.93L, Hemoglobin 8.1L, Hematocrit 25.0L , Mean Corpuscular Volume 85, Mean Corpuscular Hemoglobin 27.6, Mean Corpuscular Hemoglobin Concent 32.5, Red Cell Distribution Width 15.5H, Platelet Count 153, Mean Platelet Volume 6.8, Neutrophils (%) (Auto) 74.9, Lymphocytes (%) (Auto) 13.9L, Monocytes (%) (Auto) 6.1, Eosinophils (%) (Auto) 4.6H, Basophils (%) (Auto) 0.6, Sodium Level 140, Potassium Level 4.3, Chloride Level 105, Carbon Dioxide Level 31, Anion Gap 5, Blood Urea Nitrogen 16, Creatinine 0.7, Estimat Glomerular Filtration Rate > 60, Glucose Level 129H, Calcium Level 8.5 Height (Feet): 5 Height (Inches): 6.00 Weight (Pounds): 182 Objective exam stable nixon indwelling urine yellow/kristen CT A/P (07/12) noted, KUB noted Clayton Callejas MD Jul 28, 2019 09:07
--- NOTE | 2019-07-28 11:00 | Pulmonology Progress Note ---
Assessment/Plan Assessment/Plan ASSESSMENT shock s/p bradycardic arrest with successful resuscitation Acute hypoxemic respiratory failure requiring intubation, s/p extubation 07/11 Elevated troponin/NSTEMI likely due to cardiac arrest s/p 07/26 dual-chamber permanent pacemaker implantation. Sepsis Probable UTI Aspiration pneumonia versus pneumonitis Left hydronephrosis with obstructive uropathy s/p cystoscopy with left ureteroscopy, retrograde pyelogram, laser lithotripsy, stone extraction, stent placement, and right shockwave lithotripsy 07/24 Acute kidney injury-resolved Dehydration Hyponatremia Dysphagia feeding by G-tube Diabetes mellitus Parkinson disease Anemia PLAN OF CARE tele s/p extubation 07/11 remains on NC with stable pusle ox O2 titrate to keep sat above 90%, HHN CXR 07/13 - > Improving pulmonary venous congestion with unchanged small left pleural effusion and slight worsening of left basilar infiltrate, indeterminate between atelectasis and pneumonia Venous Duplex negative VQ scan with low prob of PE s/p 07/26 dual-chamber permanent pacemaker implantation pain management prn, L arm sling abx as per ID-completed monitor off abx monitor h/d status - improved; off any AV blocking agents cardio follows ECHO with pEF 60% and RVSP of 32 off stress dose of steroids IVF, monitor renal parameters, correct lytes prn calcium WNL if corrected for low albumin / as per nephro explanation renal US+mod L hydro CT A/P Moderate left hydroureteronephrosis secondary to a 1.5 cm left mid to distal ureter stone. Multiple nonobstructive stones within the right kidney. Thickening of the wall the urinary bladder consistent with cystitis. Juan catheter in good position. 10 x 7 cm left inguinal hernia containing bowel. No evidence of obstruction. urologist and nephro follows s/p Cystoscopy with left ureteroscopy, retrograde pyelogram, laser lithotripsy, stone extraction, stent placement, and right shockwave lithotripsy Flomax and Proscar Juan keep as per urologist recs, hand irrigation prn GTF, asp precautions BS management with SSI case discussed and evaluated by supervising physician Subjective Allergies: Coded Allergies: PENICILLINS (Verified Allergy, Unknown, 07/04/19) Subjective extubated 07/11, mild leukocytosis resolved pulse ox stable on )2 via NC s/p pacemaker placement 07/26 Objective Last 24 Hour Vital Signs Date Time Temp Pulse Resp B/P (MAP) Pulse Ox O2 Delivery O2 Flow Rate FiO2 07/28/19 10:50 71 20 99 Nasal Cannula 2.0 28 73 20 97 07/28/19 08:58 66 101/56 07/28/19 08:00 97.9 66 22 101/56 (71) 100 07/28/19 07:30 59 20 98 Nasal Cannula 2.0 28 55 20 95 07/28/19 07:30 94 Nasal Cannula 2.0 28 07/28/19 04:00 97.2 75 25 110/56 (74) 98 07/28/19 04:00 73 07/28/19 03:45 69 20 99 Nasal Cannula 2.0 28 07/28/19 03:34 64 20 98 Nasal Cannula 2.0 28 07/28/19 00:00 97.3 61 20 108/50 (69) 96 07/28/19 00:00 65 07/27/19 23:50 66 20 99 Nasal Cannula 2.0 28 07/27/19 23:40 65 20 97 Nasal Cannula 2.0 28 07/27/19 21:43 78 126/67 07/27/19 21:00 Room Air 2.0 Nasal Cannula 07/27/19 20:00 75 07/27/19 20:00 97.1 78 24 126/67 (86) 100 07/27/19 19:39 77 20 99 Nasal Cannula 2.0 28 07/27/19 19:29 75 20 93 Nasal Cannula 2.0 28 07/27/19 19:29 93 Nasal Cannula 2.0 28 07/27/19 16:35 79 07/27/19 16:00 97.9 72 20 145/73 (97) 100 07/27/19 15:07 79 20 99 Nasal Cannula 2.0 28 76 20 96 07/27/19 13:27 158/76 07/27/19 12:00 97.5 72 18 158/76 (103) 98 07/27/19 11:46 76 07/27/19 11:32 82 22 99 Nasal Cannula 2.0 28 78 22 94 Intake and Output 07/27/19 07/28/19 19:00 07:00 Output Total 1200 ml 800 ml Balance -1200 ml -800 ml Output Urine Total 1200 ml 800 ml # Bowel Movements 1 Objective General Appearance: no acute distress HEENT: normocephalic, atraumatic, anicteric Respiratory/Chest: lungs clear, no accessory muscle use, left upper chest pacemaker Cardiovascular: normal rate, V pacing Abdomen: normal bowel sounds, non distended, G tube Extremities: no edema, pedal pulses normal, sling LUE Neurologic/Psychiatric: abnormal gait Musculoskeletal: atrophy Laboratory Tests 07/28/19 07:11: White Blood Count 6.3, Red Blood Count 2.93L, Hemoglobin 8.1L, Hematocrit 25.0L , Mean Corpuscular Volume 85, Mean Corpuscular Hemoglobin 27.6, Mean Corpuscular Hemoglobin Concent 32.5, Red Cell Distribution Width 15.5H, Platelet Count 153, Mean Platelet Volume 6.8, Neutrophils (%) (Auto) 74.9, Lymphocytes (%) (Auto) 13.9L, Monocytes (%) (Auto) 6.1, Eosinophils (%) (Auto) 4.6H, Basophils (%) (Auto) 0.6, Sodium Level 140, Potassium Level 4.3, Chloride Level 105, Carbon Dioxide Level 31, Anion Gap 5, Blood Urea Nitrogen 16, Creatinine 0.7, Estimat Glomerular Filtration Rate > 60, Glucose Level 129H, Calcium Level 8.5 Current Medications Medications (Trade) Dose Ordered Sig/Genoveva Route PRN Reason Start Time Stop Time Status Last Admin Dose Admin Acetaminophen (Tylenol) 650 mg Q6H PRN GT Mild Pain/Temp > 100.5 07/25/19 16:15 08/24/19 16:14 Acetaminophen (Tylenol) 650 mg Q6H PRN GT Headache 07/26/19 13:00 08/25/19 12:59 Acetaminophen/ Codeine Phosphate (Tylenol #3) 1 tab Q4H PRN GT Moderate Pain (Pain Scale 4-6) 07/26/19 13:00 08/02/19 12:59 Albuterol/ Ipratropium (Albuterol/ Ipratropium) 3 ml Q4H PRN HHN Shortness of Breath 07/26/19 21:30 07/31/19 21:29 Albuterol/ Ipratropium (Albuterol/ Ipratropium) 3 ml Q4HRT HHN 07/26/19 23:00 07/31/19 22:59 07/28/19 10:51 Dextrose (Dextrose 50%) 25 ml Q30M PRN IV Hypoglycemia 07/19/19 06:30 08/11/19 11:59 Dextrose (Dextrose 50%) 50 ml Q30M PRN IV Hypoglycemia 07/19/19 06:30 08/11/19 11:59 Finasteride (Proscar) 5 mg DAILY ORAL 07/19/19 09:00 08/13/19 08:59 07/28/19 08:58 Hydralazine HCl (Apresoline) 10 mg Q4H PRN IV bp over 160 syst 07/19/19 06:30 08/05/19 06:29 Insulin Aspart (NovoLOG) Q6HR SUBQ 07/19/19 12:00 08/11/19 16:29 07/25/19 13:27 Metoprolol Tartrate (Lopressor) 25 mg Q12HR ORAL 07/27/19 21:00 08/26/19 20:59 07/27/19 21:43 Morphine Sulfate (Morphine Sulfate) 2 mg Q1H PRN IVP Severe Pain (Pain Scale 7-10) 07/26/19 13:00 08/02/19 12:59 Nitroglycerin (Ntg) 1 patch Q24H TDERMAL 07/19/19 12:30 08/05/19 12:29 07/27/19 13:27 Ondansetron HCl (Zofran) 4 mg Q6H PRN IVP Nausea & Vomiting 07/26/19 13:00 08/25/19 12:59 Pantoprazole (Protonix) 40 mg Q12HR IV 07/19/19 09:00 08/04/19 11:14 07/28/19 08:58 Polyethylene Glycol (Miralax) 17 gm DAILY GT 07/26/19 09:00 08/24/19 11:59 07/28/19 08:57 Potassium Chloride (K-Dur) 20 meq DAILY GT 07/22/19 09:00 08/21/19 08:59 07/28/19 08:58 Promethazine HCl/ Codeine (Phenergan with Codeine) 5 ml Q4H PRN GT For Cough 07/25/19 16:00 08/03/19 06:29 Sennosides (Senokot) 8.6 mg DAILY GT 07/26/19 09:00 08/24/19 11:59 07/28/19 08:58 Sodium Chloride 1,000 ml @ 75 mls/hr [id number] IV 07/22/19 16:41 08/21/19 16:40 07/28/19 06:01 Tamsulosin HCl (Flomax) 0.4 mg BEDTIME ORAL 07/19/19 21:00 08/12/19 20:59 07/27/19 21:43 Valerie Balderrama [employer]ATING [employer]MENT [employer] Jul 28, 2019 11:00
--- NOTE | 2019-07-28 11:58 | Nephrology Progress Note ---
Assessment/Plan Problem List: (1) RIA (acute kidney injury) (2) Cardiac arrest with successful resuscitation (3) Respiratory failure with hypoxia (4) Hydronephrosis Assessment patient have Ria due to Low BP and s/p arrest elevated liver enzymes for same reason others: 1. Acute hypoxemic respiratory failure. 2. Hypotension possible sepsis. 3. Diabetes type 2. 4. Parkinson disease. 5. Hypercholesterolemia. 6. EjFx 65% reported 7. Dysphagia. 8. Benign prostatic hypertrophy. Plan s/p Cr 1.6 now wnl Extubated 07/11 Nitro- Phos , K , Mag supplement as needed keep BP above 100 syst Pulm support monitor renal parameters discussed with RN VALENTINA: Moderate left hydronephrosis. Juan catheter. Echogenic right kidney. Suspected medical renal disease. CXR 07/15 IMPRESSION: Infiltrate and/or pleural effusion suspected at the left lung base. Mild pulmonary vascular congestion not excluded. Correlate clinically. Subjective ROS Limited/Unobtainable: No Constitutional: Reports: malaise, weakness Objective Objective Last 24 Hour Vital Signs Date Time Temp Pulse Resp B/P (MAP) Pulse Ox O2 Delivery O2 Flow Rate FiO2 07/28/19 10:50 71 20 99 Nasal Cannula 2.0 28 73 20 97 07/28/19 09:17 71 07/28/19 09:00 Room Air 2.0 Nasal Cannula 07/28/19 08:58 66 101/56 07/28/19 08:00 97.9 66 22 101/56 (71) 100 07/28/19 07:30 59 20 98 Nasal Cannula 2.0 28 55 20 95 07/28/19 07:30 94 Nasal Cannula 2.0 28 07/28/19 04:00 97.2 75 25 110/56 (74) 98 07/28/19 04:00 73 07/28/19 03:45 69 20 99 Nasal Cannula 2.0 28 07/28/19 03:34 64 20 98 Nasal Cannula 2.0 28 07/28/19 00:00 97.3 61 20 108/50 (69) 96 07/28/19 00:00 65 07/27/19 23:50 66 20 99 Nasal Cannula 2.0 28 07/27/19 23:40 65 20 97 Nasal Cannula 2.0 28 07/27/19 21:43 78 126/67 2/22/20 21:00 Room Air 2.0 Nasal Cannula 07/27/19 20:00 75 07/27/19 20:00 97.1 78 24 126/67 (86) 100 07/27/19 19:39 77 20 99 Nasal Cannula 2.0 28 07/27/19 19:29 75 20 93 Nasal Cannula 2.0 28 07/27/19 19:29 93 Nasal Cannula 2.0 28 07/27/19 16:35 79 07/27/19 16:00 97.9 72 20 145/73 (97) 100 07/27/19 15:07 79 20 99 Nasal Cannula 2.0 28 76 20 96 07/27/19 13:27 158/76 07/27/19 12:00 97.5 72 18 158/76 (103) 98 Intake and Output 07/27/19 07/28/19 19:00 07:00 Output Total 1200 ml 800 ml Balance -1200 ml -800 ml Output Urine Total 1200 ml 800 ml # Bowel Movements 1 Laboratory Tests 07/28/19 07:11: White Blood Count 6.3, Red Blood Count 2.93L, Hemoglobin 8.1L, Hematocrit 25.0L , Mean Corpuscular Volume 85, Mean Corpuscular Hemoglobin 27.6, Mean Corpuscular Hemoglobin Concent 32.5, Red Cell Distribution Width 15.5H, Platelet Count 153, Mean Platelet Volume 6.8, Neutrophils (%) (Auto) 74.9, Lymphocytes (%) (Auto) 13.9L, Monocytes (%) (Auto) 6.1, Eosinophils (%) (Auto) 4.6H, Basophils (%) (Auto) 0.6, Sodium Level 140, Potassium Level 4.3, Chloride Level 105, Carbon Dioxide Level 31, Anion Gap 5, Blood Urea Nitrogen 16, Creatinine 0.7, Estimat Glomerular Filtration Rate > 60, Glucose Level 129H, Calcium Level 8.5 Height (Feet): 5 Height (Inches): 6.00 Weight (Pounds): 182 General Appearance: no apparent distress Objective no change Oskar Mohr MD Jul 28, 2019 11:58
[2019-07-28 12:00] VITALS: BP 107/52
[2019-07-28] MEDS: Nitroglycerin Patch 0.4mg TDERMAL SCH (12:56)
--- NOTE | 2019-07-28 14:19 | Internal Med Progress Note ---
Subjective Date of Service: Jul 28, 2019 Physician Name Shukri Glover Attending Physician Rayshawn Woods MD Current Medications Medications (Trade) Dose Ordered Sig/Genoveva Route PRN Reason Start Time Stop Time Status Last Admin Dose Admin Acetaminophen (Tylenol) 650 mg Q6H PRN GT Mild Pain/Temp > 100.5 07/25/19 16:15 08/24/19 16:14 Acetaminophen (Tylenol) 650 mg Q6H PRN GT Headache 07/26/19 13:00 08/25/19 12:59 Acetaminophen/ Codeine Phosphate (Tylenol #3) 1 tab Q4H PRN GT Moderate Pain (Pain Scale 4-6) 07/26/19 13:00 08/02/19 12:59 Albuterol/ Ipratropium (Albuterol/ Ipratropium) 3 ml Q4H PRN HHN Shortness of Breath 07/26/19 21:30 07/31/19 21:29 Albuterol/ Ipratropium (Albuterol/ Ipratropium) 3 ml Q4HRT HHN 07/26/19 23:00 07/31/19 22:59 07/28/19 10:51 Dextrose (Dextrose 50%) 25 ml Q30M PRN IV Hypoglycemia 07/19/19 06:30 08/11/19 11:59 Dextrose (Dextrose 50%) 50 ml Q30M PRN IV Hypoglycemia 07/19/19 06:30 08/11/19 11:59 Finasteride (Proscar) 5 mg DAILY ORAL 07/19/19 09:00 08/13/19 08:59 07/28/19 08:58 Hydralazine HCl (Apresoline) 10 mg Q4H PRN IV bp over 160 syst 07/19/19 06:30 08/05/19 06:29 Insulin Aspart (NovoLOG) Q6HR SUBQ 07/19/19 12:00 08/11/19 16:29 07/25/19 13:27 Metoprolol Tartrate (Lopressor) 25 mg Q12HR ORAL 07/27/19 21:00 08/26/19 20:59 07/27/19 21:43 Morphine Sulfate (Morphine Sulfate) 2 mg Q1H PRN IVP Severe Pain (Pain Scale 7-10) 07/26/19 13:00 08/02/19 12:59 Nitroglycerin (Ntg) 1 patch Q24H TDERMAL 07/19/19 12:30 08/05/19 12:29 07/28/19 12:56 Ondansetron HCl (Zofran) 4 mg Q6H PRN IVP Nausea & Vomiting 07/26/19 13:00 08/25/19 12:59 Pantoprazole (Protonix) 40 mg Q12HR IV 07/19/19 09:00 08/04/19 11:14 07/28/19 08:58 Polyethylene Glycol (Miralax) 17 gm DAILY GT 07/26/19 09:00 08/24/19 11:59 07/28/19 08:57 Potassium Chloride (K-Dur) 20 meq DAILY GT 07/22/19 09:00 08/21/19 08:59 07/28/19 08:58 Promethazine HCl/ Codeine (Phenergan with Codeine) 5 ml Q4H PRN GT For Cough 07/25/19 16:00 08/03/19 06:29 Sennosides (Senokot) 8.6 mg DAILY GT 07/26/19 09:00 08/24/19 11:59 07/28/19 08:58 Sodium Chloride 1,000 ml @ 75 mls/hr [id number] IV 07/22/19 16:41 08/21/19 16:40 07/28/19 06:01 Tamsulosin HCl (Flomax) 0.4 mg BEDTIME ORAL 07/19/19 21:00 08/12/19 20:59 07/27/19 21:43 Allergies: Coded Allergies: PENICILLINS (Verified Allergy, Unknown, 07/04/19) ROS Limited/Unobtainable: Yes Subjective 83 YO M admitted with dyspnea, now respiratory failure. Cover for Int Chris-Dr Woods. Extubated 07/11/19. S/P cystoscopy/left ureteroscopy/stent/right ESWL 07/24/19. S/P Pacemaker implantation on Monday07/26/19. Objective Last Vital Signs Date Time Temp Pulse Resp B/P (MAP) Pulse Ox O2 Delivery O2 Flow Rate FiO2 07/28/19 12:56 107/52 07/28/19 12:00 97.1 74 22 96 07/28/19 10:50 Nasal Cannula 2.0 28 Laboratory Tests Test 07/28/19 07:11 White Blood Count 6.3 K/UL (4.8-10.8) Red Blood Count 2.93 M/UL (4.70-6.10) L Hemoglobin 8.1 G/DL (14.2-18.0) L Hematocrit 25.0 % (42.0-52.0) L Mean Corpuscular Volume 85 FL (80-99) Mean Corpuscular Hemoglobin 27.6 PG (27.0-31.0) Mean Corpuscular Hemoglobin Concent 32.5 G/DL (32.0-36.0) Red Cell Distribution Width 15.5 % (11.6-14.8) H Platelet Count 153 K/UL (150-450) Mean Platelet Volume 6.8 FL (6.5-10.1) Neutrophils (%) (Auto) 74.9 % (45.0-75.0) Lymphocytes (%) (Auto) 13.9 % (20.0-45.0) L Monocytes (%) (Auto) 6.1 % (1.0-10.0) Eosinophils (%) (Auto) 4.6 % (0.0-3.0) H Basophils (%) (Auto) 0.6 % (0.0-2.0) Sodium Level 140 MMOL/L (136-145) Potassium Level 4.3 MMOL/L (3.5-5.1) Chloride Level 105 MMOL/L (98-107) Carbon Dioxide Level 31 MMOL/L (21-32) Anion Gap 5 mmol/L (5-15) Blood Urea Nitrogen 16 mg/dL (7-18) Creatinine 0.7 MG/DL (0.55-1.30) Estimat Glomerular Filtration Rate > 60 mL/min (>60) Glucose Level 129 MG/DL (74-106) H Calcium Level 8.5 MG/DL (8.5-10.1) Intake and Output 07/27/19 07/28/19 19:00 07:00 Output Total 1200 ml 800 ml Balance -1200 ml -800 ml Output Urine Total 1200 ml 800 ml # Bowel Movements 1 Objective PHYSICAL EXAMINATION: GENERAL: The patient is a well-developed and well-nourished male, in moderate respiratory distress. HEENT: Eyes, pupils are equal and responsive to light and accommodation. Extraocular movements are intact. NECK: Supple without lymphadenopathy. CHEST: nasal canula; Coarse breath sounds bilaterally with expiratory wheezes. Otherwise, without crackles. ABDOMINAL: Soft, nontender, and nondistended. Positive bowel sounds. No evidence of hepatosplenomegaly. Currently, no rebound or guarding noted. CARDIOVASCULAR: Tachycardic. Regular rhythm. S1 and S2 are normal without murmurs, rubs, or gallops. GENITOURINARY: Deferred. NEUROLOGICAL: Cranial nerves II to XII are grossly intact without focal deficits. EXTREMITIES: Negative for clubbing, cyanosis, or edema. Assessment/Plan Assessment/Plan ASSESSMENT: This is an 83-year-old male. 1. Dyspnea. 2. Respiratory distress. 3. Diabetes type 2. 4. Parkinson disease. 5. Hypercholesterolemia. 6. Dilated cardiomyopathy. 7. Dysphagia. 8. Benign prostatic hypertrophy. 9. 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 NSTEMI TREATMENT: 1. Dyspnea/respiratory distress. A Pulmonary consultation has been obtained with Dr. Kathryn Lopez. The patient is currently extubated. ABX=Ceftriaxone. We will follow recommendations of Pulmonary. 2. Diabetes type 2. 3. Hypercholesterolemia. 4. Dilated cardiomyopathy. 5. Dysphagia. The patient is status post PEG placement. 6. Hypertensive heart disease. 7. Benign prostatic hypertrophy. 8. ID=DR. Page 9. Urology = Dr. Callejas; S/P for cystoscopy/left ureteroscopy/stent/right ESWL Mon07/24/19 10. cardiology = Dr Santos 11. S/P Pacemaker implantation on Mon07/26/19 12. Discharge planning: USP fac Shukri Glover MD Jul 28, 2019 14:18
[2019-07-28 16:00] VITALS: BP 127/66
--- NOTE | 2019-07-28 19:00 | NUR ---
NURSE NOTES: Received report from VIRGIL Rousseau. Patient is awake, lying in semi ryan's; resting comfortably. Family member at bedside. A/Ox3. Denies pain at this time. No signs of acute distress noted. On oxygen via NC @ 2LPM. Checked IV site and flushed. No erythema, bleeding or infiltration noted. G tube patent with no gastric residual volume. On Vital AF 1.2 @60mls/hr and tolerating well. On nixon catheter draining well to gravity. On P200 mattress for wound management. Bed at lowest position, brakes on, [id number]. Call light within reach. Will continue to monitor.
--- NOTE | 2019-07-28 19:20 | NUR ---
HAND-OFF: Report given to Kwame Wang RN. Pt. remain stable.
[2019-07-28 20:00] VITALS: BP 120/65
[2019-07-28] MEDS: Tamsulosin 0.4mg cap ORAL SCH (20:26)
[2019-07-29] VITALS: BP 122/64
[2019-07-29] MEDS: Albuterol/Ipratropium 3ml neb HHN SCH ×7 (00:02→22:48)
--- NOTE | 2019-07-29 02:00 | NUR ---
NURSE NOTES: Resting throughout the night. No significant change of condition noted. Will continue to monitor.
[2019-07-29 04:00] VITALS: BP 134/71
[2019-07-29] MEDS: NovoLOG Insulin Flexpen SUBQ SCH ×5 (05:33→23:39)
--- NOTE | 2019-07-29 07:24 | NUR ---
HAND-OFF: Report given to VIRGIL Khan. Plan of care endorsed.
--- NOTE | 2019-07-29 07:36 | Urology Progress Note ---
Assessment/Plan Assessment/Plan: 1. Left-sided hydronephrosis, poss chronic. 2. Proteinuria. 3. Hematuria. 4. Pyuria. 5. Urinary retention. 6. BPH history. 7. Rule out neurogenic bladder. 8. Mild acute kidney injury, improved. 9. Left ureteral calculus. 10. Right renal calculi. 11. Cystitis. 12. Left inguinal hernia. 13. POD # 5, left ureteroscopy/laser litho/stent, right ESWL monitor clinically maintain nixon hand irrigate PRN cath secured to pt's leg s/p abx prophylaxis monitor renal fxn flomax and proscar added voiding trial soon Subjective Allergies: Coded Allergies: PENICILLINS (Verified Allergy, Unknown, 07/04/19) Subjective all noted, looks comfortable, pacemaker placed 07/26 Objective Last 24 Hour Vital Signs Date Time Temp Pulse Resp B/P (MAP) Pulse Ox O2 Delivery O2 Flow Rate FiO2 07/29/19 04:00 76 20 99 Nasal Cannula 2.0 28 07/29/19 04:00 74 07/29/19 04:00 98.9 80 20 134/71 (92) 95 07/29/19 03:50 75 20 95 Nasal Cannula 2.0 28 07/29/19 00:12 74 20 99 Nasal Cannula 2.0 28 07/29/19 00:02 73 20 99 Nasal Cannula 2.0 28 07/29/19 00:00 71 07/29/19 00:00 98.3 79 22 122/64 (83) 97 07/28/19 21:00 Room Air 2.0 Nasal Cannula 07/28/19 20:26 72 120/65 07/28/19 20:09 76 20 99 Nasal Cannula 2.0 28 07/28/19 20:00 97.6 73 22 120/65 (83) 100 07/28/19 20:00 73 07/28/19 19:59 74 20 99 Nasal Cannula 2.0 28 07/28/19 19:59 99 Nasal Cannula 2.0 28 07/28/19 16:00 97.8 79 22 127/66 (86) 98 07/28/19 15:12 74 07/28/19 14:56 83 20 100 Nasal Cannula 2.0 28 80 20 96 07/28/19 12:56 107/52 07/28/19 12:00 97.1 74 22 107/52 (70) 96 2/23/20 11:50 84 07/28/19 10:50 71 20 99 Nasal Cannula 2.0 28 73 20 97 07/28/19 09:17 71 07/28/19 09:00 Room Air 2.0 Nasal Cannula 07/28/19 08:58 66 101/56 07/28/19 08:00 97.9 66 22 101/56 (71) 100 Intake and Output 07/28/19 07/29/19 19:00 07:00 Intake Total 1525 ml 920 ml Output Total 800 ml Balance 1525 ml 120 ml Free Water 250 ml 200 ml IV Total 675 ml Tube Feeding 600 ml 720 ml Output Urine Total 800 ml # Bowel Movements 1 Microbiology Date/Time Source Procedure Growth Status 07/11/19 12:00 Blood Blood Culture - Final NO GROWTH AFTER 5 DAYS Complete 07/04/19 10:15 Sputum Gram Stain - Final Complete 07/04/19 10:15 Sputum Culture - Final Nicolle Albicans Usual Respiratory Valery Complete 07/11/19 21:20 Urine,Clean Catch Urine Culture - Final NO GROWTH AFTER 48 HOURS Complete 07/04/19 00:43 Rectum - Final NO CARBAPENEM-RESISTANT ENTEROBACTERI... Complete Current Medications Medications (Trade) Dose Ordered Sig/Genoveva Route PRN Reason Start Time Stop Time Status Last Admin Dose Admin Acetaminophen (Tylenol) 650 mg Q6H PRN GT Mild Pain/Temp > 100.5 07/25/19 16:15 08/24/19 16:14 Acetaminophen (Tylenol) 650 mg Q6H PRN GT Headache 07/26/19 13:00 08/25/19 12:59 Acetaminophen/ Codeine Phosphate (Tylenol #3) 1 tab Q4H PRN GT Moderate Pain (Pain Scale 4-6) 07/26/19 13:00 08/02/19 12:59 Albuterol/ Ipratropium (Albuterol/ Ipratropium) 3 ml Q4H PRN HHN Shortness of Breath 07/26/19 21:30 07/31/19 21:29 Albuterol/ Ipratropium (Albuterol/ Ipratropium) 3 ml Q4HRT HHN 07/26/19 23:00 07/31/19 22:59 07/29/19 03:50 Dextrose (Dextrose 50%) 25 ml Q30M PRN IV Hypoglycemia 07/19/19 06:30 08/11/19 11:59 Dextrose (Dextrose 50%) 50 ml Q30M PRN IV Hypoglycemia 07/19/19 06:30 08/11/19 11:59 Finasteride (Proscar) 5 mg DAILY ORAL 07/19/19 09:00 08/13/19 08:59 07/28/19 08:58 Hydralazine HCl (Apresoline) 10 mg Q4H PRN IV bp over 160 syst 07/19/19 06:30 08/05/19 06:29 Insulin Aspart (NovoLOG) Q6HR SUBQ 07/19/19 12:00 08/11/19 16:29 07/25/19 13:27 Metoprolol Tartrate (Lopressor) 25 mg Q12HR ORAL 07/27/19 21:00 08/26/19 20:59 07/28/19 20:26 Morphine Sulfate (Morphine Sulfate) 2 mg Q1H PRN IVP Severe Pain (Pain Scale 7-10) 07/26/19 13:00 08/02/19 12:59 Nitroglycerin (Ntg) 1 patch Q24H TDERMAL 07/19/19 12:30 08/05/19 12:29 07/28/19 12:56 Ondansetron HCl (Zofran) 4 mg Q6H PRN IVP Nausea & Vomiting 07/26/19 13:00 08/25/19 12:59 Pantoprazole (Protonix) 40 mg Q12HR IV 07/19/19 09:00 08/04/19 11:14 07/28/19 20:25 Polyethylene Glycol (Miralax) 17 gm DAILY GT 07/26/19 09:00 08/24/19 11:59 07/28/19 08:57 Potassium Chloride (K-Dur) 20 meq DAILY GT 07/22/19 09:00 08/21/19 08:59 07/28/19 08:58 Promethazine HCl/ Codeine (Phenergan with Codeine) 5 ml Q4H PRN GT For Cough 07/25/19 16:00 08/03/19 06:29 Sennosides (Senokot) 8.6 mg DAILY GT 07/26/19 09:00 08/24/19 11:59 07/28/19 08:58 Sodium Chloride 1,000 ml @ 75 mls/hr [id number] IV 07/22/19 16:41 08/21/19 16:40 07/28/19 20:27 Tamsulosin HCl (Flomax) 0.4 mg BEDTIME ORAL 07/19/19 21:00 08/12/19 20:59 07/28/19 20:26 Height (Feet): 5 Height (Inches): 6.00 Weight (Pounds): 187 Objective exam stable nixon indwelling urine yellow/kristen CT A/P (07/12) noted, KUB noted Clayton Callejas MD Jul 29, 2019 07:36
--- NOTE | 2019-07-29 07:45 | NUR ---
NURSE NOTES: pt awake alert, no distress. gt patent intact no residual. nixon patent intact draining yellow urine. hob elevated. bed in lowest position, intact. call light within reach.
[2019-07-29 07:50] LABS: EOSINOPHILS % (AUTO) 5.5 % (0.0-3.0); HEMATOCRIT 25.8 % (42.0-52.0); HEMOGLOBIN 8.6 G/DL (14.2-18.0); LYMPHOCYTES % (AUTO) 13.4 % (20.0-45.0); MEAN CORPUSCULAR VOLUME 84 FL (80-99); MONOCYTES % (AUTO) 5.2 % (1.0-10.0); PLATELET COUNT 155 K/UL (150-450); RED BLOOD COUNT 3.09 M/UL (4.70-6.10); RED CELL DISTRIBUTION WIDTH 15.4 % (11.6-14.8); WHITE BLOOD COUNT 6.7 K/UL (4.8-10.8)
[2019-07-29 08:09] LABS: ANION GAP 5 mmol/L (5-15); BLOOD UREA NITROGEN 17 mg/dL (7-18); CALCIUM 8.5 MG/DL (8.5-10.1); CARBON DIOXIDE 30 MMOL/L (21-32); CHLORIDE 104 MMOL/L (98-107); CREATININE 0.7 MG/DL (0.55-1.30); POTASSIUM 4.3 MMOL/L (3.5-5.1); SODIUM 139 MMOL/L (136-145)
--- NOTE | 2019-07-29 08:15 | Cardiac Electrophysiology PN ---
Assessment/Plan Assessment/Plan 1. [place] fib with RVR. On Lopressor 25 mg PEG bid now that he has pacer. Add Amiodarone 200 daily 2. Status post bradycardic arrest off any sinus node or AV destinee blocking agents. Non infarctional. Tachy hillary as also develops atrial fib with RVR. S/P DDD [facility] [place] PPM implant 07/26/19. 3. NSTEMI. Due to arrest.On Lopressor 25 bid 4. Respiratory failure. D. Dimer positive. VQ scan pre code was low probability. Extubated 07/11/19 5. Dehydration and hyperatremia, resolved 6. S/P PEG 7. Diabetes. 8. Benign prostatic hypertrophy.FU Dr. Callejas. S/P CT abdomen that showed Left hydronephrosis. Tolerated Cystoscopy, Ureteroscopy and Laser lithotripsy and ureteral stent by Dr Callejas Alert with no CP. EF 65% 9. Full code. DW RN Subjective Subjective In atrial fib with controlled rate. S/P DDD [facility] [place] PPM implant 07/26/19. A pacing now Objective Last 24 Hour Vital Signs Date Time Temp Pulse Resp B/P (MAP) Pulse Ox O2 Delivery O2 Flow Rate FiO2 07/29/19 08:05 75 20 98 Nasal Cannula 2.0 28 77 20 96 07/29/19 07:59 96 Nasal Cannula 2.0 28 07/29/19 07:42 Room Air 2.0 Nasal Cannula 07/29/19 04:00 76 20 99 Nasal Cannula 2.0 28 07/29/19 04:00 74 07/29/19 04:00 98.9 80 20 134/71 (92) 95 07/29/19 03:50 75 20 95 Nasal Cannula 2.0 28 07/29/19 00:12 74 20 99 Nasal Cannula 2.0 28 07/29/19 00:02 73 20 99 Nasal Cannula 2.0 28 07/29/19 00:00 71 07/29/19 00:00 98.3 79 22 122/64 (83) 97 07/28/19 21:00 Room Air 2.0 Nasal Cannula 07/28/19 20:26 72 120/65 07/28/19 20:09 76 20 99 Nasal Cannula 2.0 28 07/28/19 20:00 97.6 73 22 120/65 (83) 100 07/28/19 20:00 73 2/23/20 19:59 74 20 99 Nasal Cannula 2.0 28 07/28/19 19:59 99 Nasal Cannula 2.0 28 07/28/19 16:00 97.8 79 22 127/66 (86) 98 07/28/19 15:12 74 07/28/19 14:56 83 20 100 Nasal Cannula 2.0 28 80 20 96 07/28/19 12:56 107/52 07/28/19 12:00 97.1 74 22 107/52 (70) 96 07/28/19 11:50 84 07/28/19 10:50 71 20 99 Nasal Cannula 2.0 28 73 20 97 07/28/19 09:17 71 07/28/19 09:00 Room Air 2.0 Nasal Cannula 07/28/19 08:58 66 101/56 Intake and Output 07/28/19 07/29/19 19:00 07:00 Intake Total 1525 ml 920 ml Output Total 800 ml Balance 1525 ml 120 ml Free Water 250 ml 200 ml IV Total 675 ml Tube Feeding 600 ml 720 ml Output Urine Total 800 ml # Bowel Movements 1 Laboratory Tests Test 07/29/19 07:00 White Blood Count 6.7 K/UL (4.8-10.8) Red Blood Count 3.09 M/UL (4.70-6.10) L Hemoglobin 8.6 G/DL (14.2-18.0) L Hematocrit 25.8 % (42.0-52.0) L Mean Corpuscular Volume 84 FL (80-99) Mean Corpuscular Hemoglobin 28.0 PG (27.0-31.0) Mean Corpuscular Hemoglobin Concent 33.4 G/DL (32.0-36.0) Red Cell Distribution Width 15.4 % (11.6-14.8) H Platelet Count 155 K/UL (150-450) Mean Platelet Volume 8.8 FL (6.5-10.1) Neutrophils (%) (Auto) 75.0 % (45.0-75.0) Lymphocytes (%) (Auto) 13.4 % (20.0-45.0) L Monocytes (%) (Auto) 5.2 % (1.0-10.0) Eosinophils (%) (Auto) 5.5 % (0.0-3.0) H Basophils (%) (Auto) 1.0 % (0.0-2.0) Sodium Level Pending Potassium Level Pending Chloride Level Pending Carbon Dioxide Level Pending Blood Urea Nitrogen Pending Creatinine Pending Estimat Glomerular Filtration Rate Pending Glucose Level Pending Calcium Level Pending Objective HEAD AND NECK: Mild JVD. LUNGS: Decreased breath sounds. CARDIOVASCULAR: IRRR . Pacer left subclavian no hematoma. No G/R/M ABDOMEN: Status post G-tube. EXTREMITIES: No pitting edema. Enio Santos MD Jul 29, 2019 08:15
[2019-07-29 08:30] VITALS: BP 127/70
[2019-07-29] MEDS: Miralax 17gm pkt GT SCH (08:44)
[2019-07-29] MEDS: Pantoprazole Inj IV SCH ×2 (08:44→21:08)
[2019-07-29] MEDS: Sennosides 8.6mg tab GT SCH (08:45)
[2019-07-29] MEDS: Amiodarone 200mg tab ORAL SCH (08:45)
[2019-07-29 09:03] LABS: ALANINE AMINOTRANSFERASE 28 U/L (12-78); ALBUMIN 2.6 G/DL (3.4-5.0); ALKALINE PHOSPHATASE 117 U/L (46-116); ASPARTATE AMINO TRANSFERASE 15 U/L (15-37); BILIRUBIN,TOTAL 0.3 MG/DL (0.2-1.0); PHOSPHORUS 3.6 MG/DL (2.5-4.9)
--- NOTE | 2019-07-29 09:04 | NUR ---
RADIOLOGY: PCXR COMPLETED 0900HRS. NF
[2019-07-29 09:05] LABS: BILIRUBIN,DIRECT < 0.1 MG/DL (0.0-0.3)
--- NOTE | 2019-07-29 11:09 | Infectious Diseases Prog Note ---
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 Multiple nonobstructive stones within the right kidney. Thickening of the wall the urinary bladder consistent with cystitis. Juan catheter in good position. 10 x 7 cm left inguinal hernia containing bowel. No evidence of obstruction.Trace left pleural effusion. Bilateral posterior basal atelectasis. Sepsis, Sp Probable UTI, sp rx Acute hypoxic respiratory failure, intubated 07/05; extubated 07/11 Aspiration pneumonia vs pneumonitis Gram positive bacteremia- contaminant -07/18 CXR: Mild pulmonary vascular congestion may be present. Correlate clinically.Basal atelectasis versus infiltrate. No change -07/15 CXR:Infiltrate and/or pleural effusion suspected at the left lung base. Mild pulmonary vascular congestion not excluded. Correlate clinically. -07/13 CXR: Improving pulmonary venous congestion with unchanged small left pleural effusion and slight worsening of left basilar infiltrate, indeterminate between atelectasis and pneumonia -07/11 u/a wbc 2-4, nit neg, leuk +3; ucx Neg Bcx Neg -07/06 Bcx Neg -07/05 CXR:Mild CHF -u/a wbc 5-10, nit neg, leuk +2; ucx Neg -Bcx 06/08 dipteriods -sp cx usual resp rupert -CXR: No acute process -influenza sc neg -v. duplex: no DVT -V/q scan:Findings are deemed low probability for pulmonary embolus Fever; low grade, recurrent- SP Mild leukocytosis,recurrent- SP CARA;SP Dm2 dysphagia s/p GT hx of PNA parkinson disease HTN bed bound [facility] resident Plan: - Monitor off abx -07/27/19 SP Cefoxitin #4 ( Peripoerative) -07/17 SP Ceftriaxone #3 -07/15 SP Flagyl # 11, Cefepime #12 -07/09 SP IV Vancomycin #5 -07/04 SP Levaquin x1 -Monitor CBC/CMP, temperatures -aspiration precautions -GT care -Cards, Uro, nephro f/u -Cdiff if diarrhea Thank you for this consultation. Will continue to follow along with you. Subjective Allergies: Coded Allergies: PENICILLINS (Verified Allergy, Unknown, 07/04/19) Subjective afebrile comfortable Objective Vital Signs Last 24 Hour Vital Signs Date Time Temp Pulse Resp B/P (MAP) Pulse Ox O2 Delivery O2 Flow Rate FiO2 07/29/19 08:45 80 127/70 07/29/19 08:30 98.9 80 20 127/70 (89) 95 07/29/19 08:05 75 20 98 Nasal Cannula 2.0 28 77 20 96 07/29/19 07:59 96 Nasal Cannula 2.0 28 07/29/19 07:42 Room Air 2.0 Nasal Cannula 07/29/19 07:37 76 07/29/19 04:00 76 20 99 Nasal Cannula 2.0 28 07/29/19 04:00 74 07/29/19 04:00 98.9 80 20 134/71 (92) 95 07/29/19 03:50 75 20 95 Nasal Cannula 2.0 28 07/29/19 00:12 74 20 99 Nasal Cannula 2.0 28 07/29/19 00:02 73 20 99 Nasal Cannula 2.0 28 07/29/19 00:00 71 07/29/19 00:00 98.3 79 22 122/64 (83) 97 07/28/19 21:00 Room Air 2.0 Nasal Cannula 07/28/19 20:26 72 120/65 07/28/19 20:09 76 20 99 Nasal Cannula 2.0 28 07/28/19 20:00 97.6 73 22 120/65 (83) 100 07/28/19 20:00 73 07/28/19 19:59 74 20 99 Nasal Cannula 2.0 28 07/28/19 19:59 99 Nasal Cannula 2.0 28 07/28/19 16:00 97.8 79 22 127/66 (86) 98 07/28/19 15:12 74 07/28/19 14:56 83 20 100 Nasal Cannula 2.0 28 80 20 96 07/28/19 12:56 107/52 07/28/19 12:00 97.1 74 22 107/52 (70) 96 07/28/19 11:50 84 Height (Feet): 5 Height (Inches): 6.00 Weight (Pounds): 187 Respiratory/Chest: normal breath sounds Cardiovascular: regular rhythm Abdomen: no organomegaly Laboratory Tests Test 07/29/19 07:00 White Blood Count 6.7 K/UL (4.8-10.8) Red Blood Count 3.09 M/UL (4.70-6.10) L Hemoglobin 8.6 G/DL (14.2-18.0) L Hematocrit 25.8 % (42.0-52.0) L Mean Corpuscular Volume 84 FL (80-99) Mean Corpuscular Hemoglobin 28.0 PG (27.0-31.0) Mean Corpuscular Hemoglobin Concent 33.4 G/DL (32.0-36.0) Red Cell Distribution Width 15.4 % (11.6-14.8) H Platelet Count 155 K/UL (150-450) Mean Platelet Volume 8.8 FL (6.5-10.1) Neutrophils (%) (Auto) 75.0 % (45.0-75.0) Lymphocytes (%) (Auto) 13.4 % (20.0-45.0) L Monocytes (%) (Auto) 5.2 % (1.0-10.0) Eosinophils (%) (Auto) 5.5 % (0.0-3.0) H Basophils (%) (Auto) 1.0 % (0.0-2.0) Sodium Level 139 MMOL/L (136-145) Potassium Level 4.3 MMOL/L (3.5-5.1) Chloride Level 104 MMOL/L (98-107) Carbon Dioxide Level 30 MMOL/L (21-32) Anion Gap 5 mmol/L (5-15) Blood Urea Nitrogen 17 mg/dL (7-18) Creatinine 0.7 MG/DL (0.55-1.30) Estimat Glomerular Filtration Rate > 60 mL/min (>60) Glucose Level 120 MG/DL (74-106) H Calcium Level 8.5 MG/DL (8.5-10.1) Phosphorus Level 3.6 MG/DL (2.5-4.9) Magnesium Level 1.5 MG/DL (1.8-2.4) L Total Bilirubin 0.3 MG/DL (0.2-1.0) Direct Bilirubin < 0.1 MG/DL (0.0-0.3) Aspartate Amino Transf (AST/SGOT) 15 U/L (15-37) Alanine Aminotransferase (ALT/SGPT) 28 U/L (12-78) Alkaline Phosphatase 117 U/L (46-116) H Total Protein 5.9 G/DL (6.4-8.2) L Albumin 2.6 G/DL (3.4-5.0) L Current Medications Medications (Trade) Dose Ordered Sig/Genoveva Route PRN Reason Start Time Stop Time Status Last Admin Dose Admin Acetaminophen (Tylenol) 650 mg Q6H PRN GT Mild Pain/Temp > 100.5 07/25/19 16:15 08/24/19 16:14 Acetaminophen (Tylenol) 650 mg Q6H PRN GT Headache 07/26/19 13:00 08/25/19 12:59 Acetaminophen/ Codeine Phosphate (Tylenol #3) 1 tab Q4H PRN GT Moderate Pain (Pain Scale 4-6) 07/26/19 13:00 08/02/19 12:59 Albuterol/ Ipratropium (Albuterol/ Ipratropium) 3 ml Q4H PRN HHN Shortness of Breath 07/26/19 21:30 07/31/19 21:29 Albuterol/ Ipratropium (Albuterol/ Ipratropium) 3 ml Q4HRT HHN 07/26/19 23:00 07/31/19 22:59 07/29/19 07:55 Amiodarone HCl (Cordarone) 200 mg DAILY ORAL 07/29/19 09:00 08/28/19 08:59 07/29/19 08:45 Dextrose (Dextrose 50%) 25 ml Q30M PRN IV Hypoglycemia 07/19/19 06:30 08/11/19 11:59 Dextrose (Dextrose 50%) 50 ml Q30M PRN IV Hypoglycemia 07/19/19 06:30 08/11/19 11:59 Finasteride (Proscar) 5 mg DAILY ORAL 07/19/19 09:00 08/13/19 08:59 07/29/19 08:45 Hydralazine HCl (Apresoline) 10 mg Q4H PRN IV bp over 160 syst 07/19/19 06:30 08/05/19 06:29 Insulin Aspart (NovoLOG) Q6HR SUBQ 07/19/19 12:00 08/11/19 16:29 07/25/19 13:27 Metoprolol Tartrate (Lopressor) 25 mg Q12HR ORAL 07/27/19 21:00 08/26/19 20:59 07/29/19 08:45 Morphine Sulfate (Morphine Sulfate) 2 mg Q1H PRN IVP Severe Pain (Pain Scale 7-10) 07/26/19 13:00 08/02/19 12:59 Nitroglycerin (Ntg) 1 patch Q24H TDERMAL 07/19/19 12:30 08/05/19 12:29 07/28/19 12:56 Ondansetron HCl (Zofran) 4 mg Q6H PRN IVP Nausea & Vomiting 07/26/19 13:00 08/25/19 12:59 Pantoprazole (Protonix) 40 mg Q12HR IV 07/19/19 09:00 08/04/19 11:14 07/29/19 08:44 Polyethylene Glycol (Miralax) 17 gm DAILY GT 07/26/19 09:00 08/24/19 11:59 07/29/19 08:44 Potassium Chloride (K-Dur) 20 meq DAILY GT 07/22/19 09:00 08/21/19 08:59 07/29/19 08:46 Promethazine HCl/ Codeine (Phenergan with Codeine) 5 ml Q4H PRN GT For Cough 07/25/19 16:00 08/03/19 06:29 Sennosides (Senokot) 8.6 mg DAILY GT 07/26/19 09:00 08/24/19 11:59 07/29/19 08:45 Sodium Chloride 1,000 ml @ 75 mls/hr [id number] IV 07/22/19 16:41 08/21/19 16:40 07/29/19 08:44 Tamsulosin HCl (Flomax) 0.4 mg BEDTIME ORAL 07/19/19 21:00 08/12/19 20:59 07/28/19 20:26 William Ely MD Jul 29, 2019 11:08
--- NOTE | 2019-07-29 11:19 | Nephrology Progress Note ---
Assessment/Plan Problem List: (1) RIA (acute kidney injury) (2) Cardiac arrest with successful resuscitation (3) Respiratory failure with hypoxia (4) Hydronephrosis Assessment patient have Ria due to Low BP and s/p arrest elevated liver enzymes for same reason others: 1. Acute hypoxemic respiratory failure. 2. Hypotension possible sepsis. 3. Diabetes type 2. 4. Parkinson disease. 5. Hypercholesterolemia. 6. EjFx 65% reported 7. Dysphagia. 8. Benign prostatic hypertrophy. Plan s/p Cr 1.6 now wnl mag supplement Extubated 2/ Nitro- Phos , K , Mag supplement as needed keep BP above 100 syst Pulm support monitor renal parameters discussed with RN VALENTINA: Moderate left hydronephrosis. Juan catheter. Echogenic right kidney. Suspected medical renal disease. CXR 07/15 IMPRESSION: Infiltrate and/or pleural effusion suspected at the left lung base. Mild pulmonary vascular congestion not excluded. Correlate clinically. Subjective ROS Limited/Unobtainable: No Constitutional: Reports: malaise, weakness Objective Objective Last 24 Hour Vital Signs Date Time Temp Pulse Resp B/P (MAP) Pulse Ox O2 Delivery O2 Flow Rate FiO2 07/29/19 08:45 80 127/70 07/29/19 08:30 98.9 80 20 127/70 (89) 95 07/29/19 08:05 75 20 98 Nasal Cannula 2.0 28 77 20 96 07/29/19 07:59 96 Nasal Cannula 2.0 28 07/29/19 07:42 Room Air 2.0 Nasal Cannula 07/29/19 07:37 76 07/29/19 04:00 76 20 99 Nasal Cannula 2.0 28 07/29/19 04:00 74 07/29/19 04:00 98.9 80 20 134/71 (92) 95 07/29/19 03:50 75 20 95 Nasal Cannula 2.0 28 07/29/19 00:12 74 20 99 Nasal Cannula 2.0 28 07/29/19 00:02 73 20 99 Nasal Cannula 2.0 28 07/29/19 00:00 71 07/29/19 00:00 98.3 79 22 122/64 (83) 97 07/28/19 21:00 Room Air 2.0 Nasal Cannula 07/28/19 20:26 72 120/65 07/28/19 20:09 76 20 99 Nasal Cannula 2.0 28 07/28/19 20:00 97.6 73 22 120/65 (83) 100 07/28/19 20:00 73 07/28/19 19:59 74 20 99 Nasal Cannula 2.0 28 07/28/19 19:59 99 Nasal Cannula 2.0 28 07/28/19 16:00 97.8 79 22 127/66 (86) 98 07/28/19 15:12 74 07/28/19 14:56 83 20 100 Nasal Cannula 2.0 28 80 20 96 07/28/19 12:56 107/52 07/28/19 12:00 97.1 74 22 107/52 (70) 96 07/28/19 11:50 84 Intake and Output 07/28/19 07/29/19 19:00 07:00 Intake Total 1525 ml 920 ml Output Total 800 ml Balance 1525 ml 120 ml Free Water 250 ml 200 ml IV Total 675 ml Tube Feeding 600 ml 720 ml Output Urine Total 800 ml # Bowel Movements 1 Laboratory Tests 07/29/19 07:00: White Blood Count 6.7, Red Blood Count 3.09L, Hemoglobin 8.6L, Hematocrit 25.8L , Mean Corpuscular Volume 84, Mean Corpuscular Hemoglobin 28.0, Mean Corpuscular Hemoglobin Concent 33.4, Red Cell Distribution Width 15.4H, Platelet Count 155, Mean Platelet Volume 8.8, Neutrophils (%) (Auto) 75.0, Lymphocytes (%) (Auto) 13.4L, Monocytes (%) (Auto) 5.2, Eosinophils (%) (Auto) 5.5H, Basophils (%) (Auto) 1.0, Sodium Level 139, Potassium Level 4.3, Chloride Level 104, Carbon Dioxide Level 30, Anion Gap 5, Blood Urea Nitrogen 17, Creatinine 0.7, Estimat Glomerular Filtration Rate > 60, Glucose Level 120H, Calcium Level 8.5, Phosphorus Level 3.6, Magnesium Level 1.5L, Total Bilirubin 0.3, Direct Bilirubin < 0.1, Aspartate Amino Transf (AST/SGOT) 15, Alanine Aminotransferase (ALT/SGPT) 28, Alkaline Phosphatase 117H, Total Protein 5.9L, Albumin 2.6L Height (Feet): 5 Height (Inches): 6.00 Weight (Pounds): 187 General Appearance: no apparent distress Objective no change Oskar Mohr MD Jul 29, 2019 11:19
--- NOTE | 2019-07-29 11:31 | Diagnostic Imaging Report ---
Indication: Shortness of breath Technique: One view of the chest Comparison: . 24/06/2019 Findings: Stable to slightly increased bilateral interstitial prominence. There are some atelectatic changes at both lung bases, unchanged. The heart is borderline enlarged. There is a left chest pacemaker again demonstrated. Impression: Borderline interstitial prominence, stable or slightly increased from previous study, may be chronic or may indicate congestive changes. Otherwise stable findings as described
[2019-07-29] MEDS: Nitroglycerin Patch 0.4mg TDERMAL SCH (11:40)
--- NOTE | 2019-07-29 11:47 | NUR ---
RD ASSESSMENT & RECOMMENDATIONS SEE CARE ACTIVITY FOR COMPLETE ASSESSMENT DAILY ESTIMATED NEEDS: Needs based on Pulmonary, wound/ 67.7kg 25-30 kcals/kg 1109-1496 total kcals 1.25-1.5 g protein/kg 85-102 g total protein 25-30 mL/kg 5743-3408 total fluid mLs NUTRITION DIAGNOSIS: * Increased kcal/prot needs R/T wound healing as evidenced by pt w/ resolving wounds @ L buttocks, refer to WC eval. * Swallowing difficulty R/T dysphagia, h/o CVA as evidenced by h/o PEG placement, GT for H20 flush only and on mech soft texture diet [employer], now s/p code blue, orally intubated, now extubated, cont on GT feeds. CURRENT TF: Vital AF 1.2 @ 60ml/hr x 24 hrs- NOW NPO for pacemaker PO DIET RECOMMENDATIONS: IF PO INDICATED-> CCHO MED, LOW NA/ TEXTURE PER POPULATION HEALTH COACH ENTERAL NUTRITION RECOMMENDATIONS: Glucerna 1.2 @ 60ml/hr x 24 hrs to provide 1440ml, 1728kcal, 86g prot, 1159ml free water * Rec Glucerna 1.2 as pt now extubated, Vital AF no longer indicated. * Initiate Glucerna 1.2 @ 30ml/hr x 6 hrs, advance 10ml q 4-6 hrs as tolerated to goal rate. * HOB over 30 degrees * Water flush of 120ml q 4 hrs ADDITIONAL RECOMMENDATIONS: * Per SNF: HT=67" [id number] (As of Jun 10, 2019) * Monitor K closely, need for TF change (K 5.9 upon adm, now wnl) * Monitor hydration status: Na now normalized, BUN trend down -> monitor need to increase H20 flushes * Wound healing: continue Dipak BID . .
[2019-07-29 12:00] VITALS: BP 122/68
--- NOTE | 2019-07-29 12:40 | Pulmonology Progress Note ---
Assessment/Plan Problems: (1) Cardiac arrest with successful resuscitation (2) Respiratory failure with hypoxia (3) Occult blood positive stool (4) Sepsis Assessment & Plan: resolved, off abx (5) Anemia (6) CARA (acute kidney injury) (7) Hypertensive heart disease (8) BPH (benign prostatic hyperplasia) (9) DVT (deep venous thrombosis) (10) Parkinson disease (11) Diabetes mellitus (12) Feeding by G-tube Assessment/Plan H/H slowly trending down. OB positive, GI called s/p lithotripsy and uretral stent placement pacemaker done on monday wbc wnl, afebrile bun/creatinine better no new cultures tolerating diet aspiration precaution titrate fio2 to sat of 92% sliding scale\ Subjective ROS Limited/Unobtainable: No Constitutional: Reports: no symptoms HEENT: Repors: no symptoms Respiratory: Reports: no symptoms, wheezing Allergies: Coded Allergies: PENICILLINS (Verified Allergy, Unknown, 07/04/19) Objective Last 24 Hour Vital Signs Date Time Temp Pulse Resp B/P (MAP) Pulse Ox O2 Delivery O2 Flow Rate FiO2 07/29/19 12:00 98.9 70 20 122/68 (86) 95 07/29/19 11:45 74 18 98 Nasal Cannula 2.0 28 71 18 95 07/29/19 11:40 128/70 07/29/19 08:45 80 127/70 07/29/19 08:30 98.9 80 20 127/70 (89) 95 07/29/19 08:05 75 20 98 Nasal Cannula 2.0 28 77 20 96 07/29/19 07:59 96 Nasal Cannula 2.0 28 07/29/19 07:42 Room Air 2.0 Nasal Cannula 07/29/19 07:37 76 07/29/19 04:00 76 20 99 Nasal Cannula 2.0 28 07/29/19 04:00 74 07/29/19 04:00 98.9 80 20 134/71 (92) 95 07/29/19 03:50 75 20 95 Nasal Cannula 2.0 28 07/29/19 00:12 74 20 99 Nasal Cannula 2.0 28 07/29/19 00:02 73 20 99 Nasal Cannula 2.0 28 07/29/19 00:00 71 07/29/19 00:00 98.3 79 22 122/64 (83) 97 07/28/19 21:00 Room Air 2.0 Nasal Cannula 07/28/19 20:26 72 120/65 07/28/19 20:09 76 20 99 Nasal Cannula 2.0 28 07/28/19 20:00 97.6 73 22 120/65 (83) 100 07/28/19 20:00 73 07/28/19 19:59 74 20 99 Nasal Cannula 2.0 28 07/28/19 19:59 99 Nasal Cannula 2.0 28 07/28/19 16:00 97.8 79 22 127/66 (86) 98 07/28/19 15:12 74 07/28/19 14:56 83 20 100 Nasal Cannula 2.0 28 80 20 96 07/28/19 12:56 107/52 Intake and Output 07/28/19 07/29/19 19:00 07:00 Intake Total 1525 ml 920 ml Output Total 800 ml Balance 1525 ml 120 ml Free Water 250 ml 200 ml IV Total 675 ml Tube Feeding 600 ml 720 ml Output Urine Total 800 ml # Bowel Movements 1 Objective got the pacemaker General Appearance: WD/WN HEENT: normocephalic, atraumatic Respiratory/Chest: chest wall non-tender, normal breath sounds Abdomen: normal bowel sounds, soft, non tender Genitourinary: normal external genitalia Neurologic/Psychiatric: integrated marketing manager II-XII grossly normal Laboratory Tests 07/29/19 07:00: White Blood Count 6.7, Red Blood Count 3.09L, Hemoglobin 8.6L, Hematocrit 25.8L , Mean Corpuscular Volume 84, Mean Corpuscular Hemoglobin 28.0, Mean Corpuscular Hemoglobin Concent 33.4, Red Cell Distribution Width 15.4H, Platelet Count 155, Mean Platelet Volume 8.8, Neutrophils (%) (Auto) 75.0, Lymphocytes (%) (Auto) 13.4L, Monocytes (%) (Auto) 5.2, Eosinophils (%) (Auto) 5.5H, Basophils (%) (Auto) 1.0, Sodium Level 139, Potassium Level 4.3, Chloride Level 104, Carbon Dioxide Level 30, Anion Gap 5, Blood Urea Nitrogen 17, Creatinine 0.7, Estimat Glomerular Filtration Rate > 60, Glucose Level 120H, Calcium Level 8.5, Phosphorus Level 3.6, Magnesium Level 1.5L, Total Bilirubin 0.3, Direct Bilirubin < 0.1, Aspartate Amino Transf (AST/SGOT) 15, Alanine Aminotransferase (ALT/SGPT) 28, Alkaline Phosphatase 117H, Total Protein 5.9L, Albumin 2.6L Current Medications Medications (Trade) Dose Ordered Sig/Genoveva Route PRN Reason Start Time Stop Time Status Last Admin Dose Admin Acetaminophen (Tylenol) 650 mg Q6H PRN GT Mild Pain/Temp > 100.5 07/25/19 16:15 08/24/19 16:14 Acetaminophen (Tylenol) 650 mg Q6H PRN GT Headache 07/26/19 13:00 08/25/19 12:59 Acetaminophen/ Codeine Phosphate (Tylenol #3) 1 tab Q4H PRN GT Moderate Pain (Pain Scale 4-6) 07/26/19 13:00 08/02/19 12:59 Albuterol/ Ipratropium (Albuterol/ Ipratropium) 3 ml Q4H PRN HHN Shortness of Breath 07/26/19 21:30 07/31/19 21:29 Albuterol/ Ipratropium (Albuterol/ Ipratropium) 3 ml Q4HRT HHN 07/26/19 23:00 07/31/19 22:59 07/29/19 11:35 Amiodarone HCl (Cordarone) 200 mg DAILY ORAL 07/29/19 09:00 08/28/19 08:59 07/29/19 08:45 Dextrose (Dextrose 50%) 25 ml Q30M PRN IV Hypoglycemia 07/19/19 06:30 08/11/19 11:59 Dextrose (Dextrose 50%) 50 ml Q30M PRN IV Hypoglycemia 07/19/19 06:30 08/11/19 11:59 Finasteride (Proscar) 5 mg DAILY ORAL 07/19/19 09:00 08/13/19 08:59 07/29/19 08:45 Hydralazine HCl (Apresoline) 10 mg Q4H PRN IV bp over 160 syst 07/19/19 06:30 08/05/19 06:29 Insulin Aspart (NovoLOG) Q6HR SUBQ 07/19/19 12:00 08/11/19 16:29 07/25/19 13:27 Magnesium Sulfate 100 ml @ 100 mls/hr Q1H IVPB 07/29/19 12:00 07/29/19 15:59 07/29/19 12:32 Metoprolol Tartrate (Lopressor) 25 mg Q12HR ORAL 07/27/19 21:00 08/26/19 20:59 07/29/19 08:45 Morphine Sulfate (Morphine Sulfate) 2 mg Q1H PRN IVP Severe Pain (Pain Scale 7-10) 07/26/19 13:00 08/02/19 12:59 Nitroglycerin (Ntg) 1 patch Q24H TDERMAL 07/19/19 12:30 08/05/19 12:29 07/29/19 11:40 Ondansetron HCl (Zofran) 4 mg Q6H PRN IVP Nausea & Vomiting 07/26/19 13:00 08/25/19 12:59 Pantoprazole (Protonix) 40 mg Q12HR IV 07/19/19 09:00 08/04/19 11:14 07/29/19 08:44 Polyethylene Glycol (Miralax) 17 gm DAILY GT 07/26/19 09:00 08/24/19 11:59 07/29/19 08:44 Potassium Chloride (K-Dur) 20 meq DAILY GT 07/22/19 09:00 08/21/19 08:59 07/29/19 08:46 Promethazine HCl/ Codeine (Phenergan with Codeine) 5 ml Q4H PRN GT For Cough 07/25/19 16:00 08/03/19 06:29 Sennosides (Senokot) 8.6 mg DAILY GT 07/26/19 09:00 08/24/19 11:59 07/29/19 08:45 Sodium Chloride 1,000 ml @ 75 mls/hr [id number] IV 07/22/19 16:41 08/21/19 16:40 07/29/19 08:44 Tamsulosin HCl (Flomax) 0.4 mg BEDTIME ORAL 07/19/19 21:00 08/12/19 20:59 07/28/19 20:26 Kathryn Lopez MD Jul 29, 2019 12:40
--- NOTE | 2019-07-29 15:22 | NUR ---
P.T Weekly Progress Notes: Pt is being seen in P.T. Tx consisted of ADL/functional mobility training, Ther ex and sitting/standing balance training. Pt demonstrating slow however steady progress in therapy. Pt has been cooperative and more engaging in functional activities. Pt able to turn/roll with min A X 1, supine to/from sitting with MOD A x 1. Pt able to transition from sitting to/from standing with MAX 1-2 depending on level of fatigue. Pt able to sit without support at the EOB: able to stand with MOD/MAX support x 1 using the FWW for approx. 10 secs. Overall Fair endurance and tolerance to activities. Continue with POC. Recommend SNF for further rehab intervention at [place].
--- NOTE | 2019-07-29 15:47 | NUR ---
CASE MANAGEMENT:REVIEW 07/29/19 SI: SEPSIS. RESP FAILURE. S/P CARDIAC ARREST S/P LITHOTRIPSY WITH STENT PLACEMENT S/P PACEMAKER 98.9 70 20 122/68 95% ON 2L NC FiO2 28 H/ 8.6/25.8 MG 1.5 IS: IV MG SULFATE [id number] IV NS @75ML/HR AMIODARONE PO QD IV PROTONIX BID K-DUR GT QD FLOMAX PO QHS NTG PATCH Q24 PROSCAR PO QD SENOKOT GT QD ALBUTEROL HHN Q4HRS RTC : 2E TELEMETRY UNIT DCP: FROM [facility] PL[facility]: OB STOOL (+)
[2019-07-29 16:00] VITALS: BP 120/58
--- NOTE | 2019-07-29 17:00 | Consultation ---
DATE OF CONSULTATION: 07/29/2019 CONSULTING PHYSICIAN: Delgado Small M.D. CHIEF COMPLAINT: Anemia, GI bleeding. HISTORY OF PRESENT ILLNESS: Most of the history per chart. The patient is an 83-year-old male, admitted to the hospital, had a prolonged hospital stay. Since admission, he had a pacemaker placement. He also had a urethral stent placement. The patient has a G-tube currently in place, getting feeding through the G-tube, found to have a drop in hemoglobin and hematocrit with stool OB positive. So, GI consult requested for evaluation. PAST MEDICAL HISTORY: 1. History of dysphagia with G-tube. 2. Diabetes. 3. Parkinson disease. 4. History of atrial fibrillation with pacemaker placement in this admission. 5. Urethral obstruction requiring urethral stent placement in this admission. ALLERGIES: To penicillin. MEDICATIONS: Please see medication reconciliation list. SOCIAL HISTORY: There is no recent history of tobacco, alcohol, or drug abuse. FAMILY HISTORY: Noncontributory. REVIEW OF SYSTEMS: Limited. PHYSICAL EXAMINATION: VITAL SIGNS: Temperature is 98.9, pulse is 70, respirations 20, blood pressure 122/68. HEENT: Normocephalic, atraumatic. Pale conjunctivae. NECK: Supple. No evidence of obvious lymphadenopathy. CARDIOVASCULAR: There is a pacemaker in the left shoulder. HEART: Rate is . Plus S1 and S2. Soft left sternal murmur. LUNGS: Decreased breath sounds bilaterally based on the supine exam. ABDOMEN: Soft, nontender. G-tube in place. No rebound. No guarding. No peritoneal sign. EXTREMITIES: No cyanosis. No clubbing. No edema. LABORATORY DATA: White count 6.7, hemoglobin 8.6, hematocrit 25.8, platelet count is 155. Chem-7 sodium is 139, potassium 4.3, BUN is 17, creatinine 0.7, glucose is 120. ASSESSMENT AND PLAN: This is an 83-year-old male with numerous medical problems as dictated above. GI consult requested for drop in hemoglobin and hematocrit and anemia with stool OB positive. The patient is an 83, currently on PPI with G-tube. If anything, the patient most likely would need a colonoscopy for evaluation of the anemia and GI bleeding, but given his age of 83, no significant bright red blood per rectum or melena, we are going to hold off on doing endoscopy or colonoscopy tomorrow. We will plan to get a repeat CBC for tomorrow. Continue on PPI. Repeat stool for OB. If the patient continues to have a drop in hemoglobin and hematocrit with positive stool OB, we will consider doing a colonoscopy. I want to thank Dr. Lopez for this kind referral. Delgado Small M.D. DR: ARUNA JOB#: [id number] CC: Kathryn Lopez M.D.; Fax#: [phone]
--- NOTE | 2019-07-29 19:07 | NUR ---
HAND-OFF: Report given to JOSE MIGUEL HERMAN.
--- NOTE | 2019-07-29 19:19 | Internal Med Progress Note ---
Subjective Date of Service: Jul 29, 2019 Physician Name Shukri Glover Attending Physician Rayshawn Woods MD Current Medications Medications (Trade) Dose Ordered Sig/Genoveva Route PRN Reason Start Time Stop Time Status Last Admin Dose Admin Acetaminophen (Tylenol) 650 mg Q6H PRN GT Mild Pain/Temp > 100.5 07/25/19 16:15 08/24/19 16:14 Acetaminophen (Tylenol) 650 mg Q6H PRN GT Headache 07/26/19 13:00 08/25/19 12:59 Acetaminophen/ Codeine Phosphate (Tylenol #3) 1 tab Q4H PRN GT Moderate Pain (Pain Scale 4-6) 07/26/19 13:00 08/02/19 12:59 Albuterol/ Ipratropium (Albuterol/ Ipratropium) 3 ml Q4H PRN HHN Shortness of Breath 07/26/19 21:30 07/31/19 21:29 Albuterol/ Ipratropium (Albuterol/ Ipratropium) 3 ml Q4HRT HHN 07/26/19 23:00 07/31/19 22:59 07/29/19 15:27 Amiodarone HCl (Cordarone) 200 mg DAILY ORAL 07/29/19 09:00 08/28/19 08:59 07/29/19 08:45 Dextrose (Dextrose 50%) 25 ml Q30M PRN IV Hypoglycemia 07/19/19 06:30 08/11/19 11:59 Dextrose (Dextrose 50%) 50 ml Q30M PRN IV Hypoglycemia 07/19/19 06:30 08/11/19 11:59 Finasteride (Proscar) 5 mg DAILY ORAL 07/19/19 09:00 08/13/19 08:59 07/29/19 08:45 Hydralazine HCl (Apresoline) 10 mg Q4H PRN IV bp over 160 syst 07/19/19 06:30 08/05/19 06:29 Insulin Aspart (NovoLOG) Q6HR SUBQ 07/19/19 12:00 08/11/19 16:29 07/29/19 17:18 Metoprolol Tartrate (Lopressor) 25 mg Q12HR ORAL 07/27/19 21:00 08/26/19 20:59 07/29/19 08:45 Morphine Sulfate (Morphine Sulfate) 2 mg Q1H PRN IVP Severe Pain (Pain Scale 7-10) 07/26/19 13:00 08/02/19 12:59 Nitroglycerin (Ntg) 1 patch Q24H TDERMAL 07/19/19 12:30 08/05/19 12:29 07/29/19 11:40 Ondansetron HCl (Zofran) 4 mg Q6H PRN IVP Nausea & Vomiting 07/26/19 13:00 08/25/19 12:59 Pantoprazole (Protonix) 40 mg Q12HR IV 07/19/19 09:00 08/04/19 11:14 07/29/19 08:44 Polyethylene Glycol (Miralax) 17 gm DAILY GT 07/26/19 09:00 08/24/19 11:59 07/29/19 08:44 Potassium Chloride (K-Dur) 20 meq DAILY GT 07/22/19 09:00 08/21/19 08:59 07/29/19 08:46 Promethazine HCl/ Codeine (Phenergan with Codeine) 5 ml Q4H PRN GT For Cough 07/25/19 16:00 08/03/19 06:29 Sennosides (Senokot) 8.6 mg DAILY GT 07/26/19 09:00 08/24/19 11:59 07/29/19 08:45 Sodium Chloride 1,000 ml @ 75 mls/hr [id number] IV 07/22/19 16:41 08/21/19 16:40 07/29/19 08:44 Tamsulosin HCl (Flomax) 0.4 mg BEDTIME ORAL 07/19/19 21:00 08/12/19 20:59 07/28/19 20:26 Allergies: Coded Allergies: PENICILLINS (Verified Allergy, Unknown, 07/04/19) ROS Limited/Unobtainable: Yes Subjective 83 YO M admitted with dyspnea, now respiratory failure. Cover for Int Med-Dr Woods. Extubated 07/11/19. S/P cystoscopy/left ureteroscopy/stent/right ESWL 07/24/19. S/P Pacemaker implantation on Monday07/26/19. Objective Last Vital Signs Date Time Temp Pulse Resp B/P (MAP) Pulse Ox O2 Delivery O2 Flow Rate FiO2 07/29/19 16:00 98.9 70 20 120/58 (78) 95 07/29/19 15:38 Nasal Cannula 2.0 28 Laboratory Tests Test 07/29/19 07:00 White Blood Count 6.7 K/UL (4.8-10.8) Red Blood Count 3.09 M/UL (4.70-6.10) L Hemoglobin 8.6 G/DL (14.2-18.0) L Hematocrit 25.8 % (42.0-52.0) L Mean Corpuscular Volume 84 FL (80-99) Mean Corpuscular Hemoglobin 28.0 PG (27.0-31.0) Mean Corpuscular Hemoglobin Concent 33.4 G/DL (32.0-36.0) Red Cell Distribution Width 15.4 % (11.6-14.8) H Platelet Count 155 K/UL (150-450) Mean Platelet Volume 8.8 FL (6.5-10.1) Neutrophils (%) (Auto) 75.0 % (45.0-75.0) Lymphocytes (%) (Auto) 13.4 % (20.0-45.0) L Monocytes (%) (Auto) 5.2 % (1.0-10.0) Eosinophils (%) (Auto) 5.5 % (0.0-3.0) H Basophils (%) (Auto) 1.0 % (0.0-2.0) Sodium Level 139 MMOL/L (136-145) Potassium Level 4.3 MMOL/L (3.5-5.1) Chloride Level 104 MMOL/L (98-107) Carbon Dioxide Level 30 MMOL/L (21-32) Anion Gap 5 mmol/L (5-15) Blood Urea Nitrogen 17 mg/dL (7-18) Creatinine 0.7 MG/DL (0.55-1.30) Estimat Glomerular Filtration Rate > 60 mL/min (>60) Glucose Level 120 MG/DL (74-106) H Calcium Level 8.5 MG/DL (8.5-10.1) Phosphorus Level 3.6 MG/DL (2.5-4.9) Magnesium Level 1.5 MG/DL (1.8-2.4) L Total Bilirubin 0.3 MG/DL (0.2-1.0) Direct Bilirubin < 0.1 MG/DL (0.0-0.3) Aspartate Amino Transf (AST/SGOT) 15 U/L (15-37) Alanine Aminotransferase (ALT/SGPT) 28 U/L (12-78) Alkaline Phosphatase 117 U/L (46-116) H Total Protein 5.9 G/DL (6.4-8.2) L Albumin 2.6 G/DL (3.4-5.0) L Intake and Output 07/28/19 07/29/19 19:00 07:00 Intake Total 1525 ml 920 ml Output Total 800 ml Balance 1525 ml 120 ml Free Water 250 ml 200 ml IV Total 675 ml Tube Feeding 600 ml 720 ml Output Urine Total 800 ml # Bowel Movements 1 Objective PHYSICAL EXAMINATION: GENERAL: The patient is a well-developed and well-nourished male, in moderate respiratory distress. HEENT: Eyes, pupils are equal and responsive to light and accommodation. Extraocular movements are intact. NECK: Supple without lymphadenopathy. CHEST: nasal canula; Coarse breath sounds bilaterally with expiratory wheezes. Otherwise, without crackles. ABDOMINAL: Soft, nontender, and nondistended. Positive bowel sounds. No evidence of hepatosplenomegaly. Currently, no rebound or guarding noted. CARDIOVASCULAR: Tachycardic. Regular rhythm. S1 and S2 are normal without murmurs, rubs, or gallops. GENITOURINARY: Deferred. NEUROLOGICAL: Cranial nerves II to XII are grossly intact without focal deficits. EXTREMITIES: Negative for clubbing, cyanosis, or edema. Assessment/Plan Assessment/Plan ASSESSMENT: This is an 83-year-old male. 1. Dyspnea. 2. Respiratory distress. 3. Diabetes type 2. 4. Parkinson disease. 5. Hypercholesterolemia. 6. Dilated cardiomyopathy. 7. Dysphagia. 8. Benign prostatic hypertrophy. 9. 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 NSTEMI TREATMENT: 1. Dyspnea/respiratory distress. A Pulmonary consultation has been obtained with Dr. Kathryn Lopez. The patient is currently extubated. ABX=Ceftriaxone. We will follow recommendations of Pulmonary. 2. Diabetes type 2. 3. Hypercholesterolemia. 4. Dilated cardiomyopathy. 5. Dysphagia. The patient is status post PEG placement. 6. Hypertensive heart disease. 7. Benign prostatic hypertrophy. 8. ID=DR. Page 9. Urology = Dr. Callejas; S/P for cystoscopy/left ureteroscopy/stent/right ESWL 07/24/19 10. cardiology = Dr Santos 11. S/P Pacemaker implantation on Mon07/26/19 12. Discharge planning: [facility] Shukri Glover MD Jul 29, 2019 19:19
--- NOTE | 2019-07-29 19:30 | NUR ---
NURSE NOTES: Received patient from Bill HERMAN. patient in bed, on 2L NC, no signs of respiratory distress. No residual from gtube, on Vital AF1.2 at 60ml/hr. Right forearm 22 gauge iv intact with NS infusing at 75ml/hr, no signs of infection or infiltration. Bilateral scds on, patient on air mattress. Bed in low position, locked, bed alarm on, call light within reach.
[2019-07-29 20:00] VITALS: BP 125/54
[2019-07-29] MEDS: Tamsulosin 0.4mg cap ORAL SCH (21:05)
[2019-07-30] VITALS: BP 107/61
[2019-07-30] MEDS: Albuterol/Ipratropium 3ml neb HHN SCH ×6 (03:15→23:39)
[2019-07-30 04:00] VITALS: BP 116/53
[2019-07-30] MEDS: NovoLOG Insulin Flexpen SUBQ SCH ×3 (05:48→17:50)
--- NOTE | 2019-07-30 07:27 | NUR ---
NURSE NOTES: Received orders from Dr. Callejas to remove nixon catheter. Withdrew 30ml from balloon and removed nixon catheter. Endorsed to AM shift to bladder scan for residual.
--- NOTE | 2019-07-30 07:30 | NUR ---
NURSE NOTES: Received pt in bed, sleeping. No s/s of distress/pain. IV on RFA 22g noted, running NS @ 75 ml/hr. G-tube feeding noted. Side rails x 2. Bed in the lowest, locked, and alarm on. Call light within reach. Will continue to monitor
[2019-07-30 07:51] LABS: BASOPHILS % (AUTO) 1.2 % (0.0-2.0); HEMATOCRIT 25.3 % (42.0-52.0); HEMOGLOBIN 8.5 G/DL (14.2-18.0); LYMPHOCYTES % (AUTO) 15.6 % (20.0-45.0); MEAN CORPUSCULAR VOLUME 83 FL (80-99); MONOCYTES % (AUTO) 6.2 % (1.0-10.0); NEUTROPHILS % (AUTO) 70.9 % (45.0-75.0); PLATELET COUNT 156 K/UL (150-450); RED BLOOD COUNT 3.05 M/UL (4.70-6.10); RED CELL DISTRIBUTION WIDTH 16.2 % (11.6-14.8); WHITE BLOOD COUNT 5.8 K/UL (4.8-10.8)
[2019-07-30 08:00] VITALS: BP 117/61
[2019-07-30 08:19] LABS: ANION GAP 7 mmol/L (5-15); BLOOD UREA NITROGEN 22 mg/dL (7-18); CALCIUM 8.5 MG/DL (8.5-10.1); CARBON DIOXIDE 30 MMOL/L (21-32); CHLORIDE 101 MMOL/L (98-107); CREATININE 0.7 MG/DL (0.55-1.30); POTASSIUM 4.4 MMOL/L (3.5-5.1); SODIUM 138 MMOL/L (136-145)
[2019-07-30] MEDS: Sennosides 8.6mg tab GT SCH (08:45)
[2019-07-30] MEDS: Pantoprazole Inj IV SCH ×2 (08:46→20:55)
[2019-07-30] MEDS: Amiodarone 200mg tab ORAL SCH (08:46)
[2019-07-30] MEDS: Miralax 17gm pkt GT SCH (08:47)
--- NOTE | 2019-07-30 09:10 | General Progress Note ---
Assessment/Plan Assessment/Plan: 1. History of dysphagia with G-tube. 2. Diabetes. 3. Parkinson disease. 4. History of atrial fibrillation with pacemaker placement in this admission. 5. Urethral obstruction requiring urethral stent placement in this admission. 6. anemia with stool ob positive stable H&H on ppi plan repeat CBC and stool ob. colonoscopy if drop in H&H and persistent stool ob positive GTF GT care Subjective ROS Limited/Unobtainable: No Allergies: Coded Allergies: PENICILLINS (Verified Allergy, Unknown, 07/04/19) Objective Last 24 Hour Vital Signs Date Time Temp Pulse Resp B/P (MAP) Pulse Ox O2 Delivery O2 Flow Rate FiO2 07/30/19 08:47 70 117/61 07/30/19 08:07 Room Air 2.0 Nasal Cannula 07/30/19 08:00 98.2 70 20 117/61 (79) 95 07/30/19 04:00 97.5 74 16 116/53 (74) 97 07/30/19 04:00 75 07/30/19 03:15 71 18 99 Nasal Cannula 2.0 28 69 18 98 07/30/19 00:00 98.4 73 24 107/61 (76) 94 07/30/19 00:00 73 07/29/19 22:48 72 18 99 Nasal Cannula 2.0 28 70 18 99 07/29/19 21:05 80 125/54 07/29/19 21:00 Room Air 2.0 Nasal Cannula 07/29/19 20:00 97.5 80 16 125/54 (77) 99 07/29/19 20:00 75 07/29/19 19:55 95 Nasal Cannula 2.0 28 07/29/19 19:55 75 18 99 Nasal Cannula 2.0 28 73 18 95 07/29/19 16:00 98.9 70 20 120/58 (78) 95 07/29/19 15:38 74 18 99 Nasal Cannula 2.0 28 75 18 95 07/29/19 15:20 73 07/29/19 12:00 98.9 70 20 122/68 (86) 95 07/29/19 11:45 74 18 98 Nasal Cannula 2.0 28 71 18 95 07/29/19 11:40 128/70 07/29/19 11:39 69 Intake and Output 07/29/19 07/30/19 19:00 07:00 Intake Total 1430 ml 450 ml Output Total 800 ml 1100 ml Balance 630 ml -650 ml Free Water 200 ml IV Total 450 ml 450 ml Tube Feeding 780 ml Output Urine Total 800 ml 1100 ml Laboratory Tests 07/30/19 07:01: White Blood Count 5.8, Red Blood Count 3.05L, Hemoglobin 8.5L, Hematocrit 25.3L , Mean Corpuscular Volume 83, Mean Corpuscular Hemoglobin 27.9, Mean Corpuscular Hemoglobin Concent 33.7, Red Cell Distribution Width 16.2H, Platelet Count 156, Mean Platelet Volume 7.4, Neutrophils (%) (Auto) 70.9, Lymphocytes (%) (Auto) 15.6L, Monocytes (%) (Auto) 6.2, Eosinophils (%) (Auto) 6.0H, Basophils (%) (Auto) 1.2, Sodium Level 138, Potassium Level 4.4, Chloride Level 101, Carbon Dioxide Level 30, Anion Gap 7, Blood Urea Nitrogen 22H, Creatinine 0.7, Estimat Glomerular Filtration Rate > 60, Glucose Level 116H, Calcium Level 8.5 Height (Feet): 5 Height (Inches): 6.00 Weight (Pounds): 185 General Appearance: lethargic EENT: normal ENT inspection Neck: supple Cardiovascular: normal rate Respiratory/Chest: decreased breath sounds Abdomen: normal bowel sounds, non tender, soft Extremities: non-tender Delgado Small MD Jul 30, 2019 09:10
--- NOTE | 2019-07-30 09:12 | Urology Progress Note ---
Assessment/Plan Assessment/Plan: 1. Left-sided hydronephrosis, poss chronic. 2. Proteinuria. 3. Hematuria. 4. Pyuria. 5. Urinary retention. 6. BPH history. 7. Rule out neurogenic bladder. 8. Mild acute kidney injury, improved. 9. Left ureteral calculus. 10. Right renal calculi. 11. Cystitis. 12. Left inguinal hernia. 13. POD # 6, left ureteroscopy/laser litho/stent, right ESWL monitor clinically nixon indwelling hand irrigate PRN cath secured to pt's leg s/p abx prophylaxis monitor renal fxn flomax and proscar added voiding trial today check PVR and reinsert nixon PRN Subjective Allergies: Coded Allergies: PENICILLINS (Verified Allergy, Unknown, 07/04/19) Subjective all noted, looks comfortable, pacemaker placed 07/26 Objective Last 24 Hour Vital Signs Date Time Temp Pulse Resp B/P (MAP) Pulse Ox O2 Delivery O2 Flow Rate FiO2 07/30/19 08:47 70 117/61 07/30/19 08:07 Room Air 2.0 Nasal Cannula 07/30/19 08:00 98.2 70 20 117/61 (79) 95 07/30/19 04:00 97.5 74 16 116/53 (74) 97 07/30/19 04:00 75 07/30/19 03:15 71 18 99 Nasal Cannula 2.0 28 69 18 98 07/30/19 00:00 98.4 73 24 107/61 (76) 94 07/30/19 00:00 73 07/29/19 22:48 72 18 99 Nasal Cannula 2.0 28 70 18 99 07/29/19 21:05 80 125/54 07/29/19 21:00 Room Air 2.0 Nasal Cannula 07/29/19 20:00 97.5 80 16 125/54 (77) 99 07/29/19 20:00 75 07/29/19 19:55 95 Nasal Cannula 2.0 28 07/29/19 19:55 75 18 99 Nasal Cannula 2.0 28 73 18 95 07/29/19 16:00 98.9 70 20 120/58 (78) 95 07/29/19 15:38 74 18 99 Nasal Cannula 2.0 28 75 18 95 07/29/19 15:20 73 07/29/19 12:00 98.9 70 20 122/68 (86) 95 07/29/19 11:45 74 18 98 Nasal Cannula 2.0 28 71 18 95 07/29/19 11:40 128/70 07/29/19 11:39 69 Intake and Output 07/29/19 07/30/19 19:00 07:00 Intake Total 1430 ml 450 ml Output Total 800 ml 1100 ml Balance 630 ml -650 ml Free Water 200 ml IV Total 450 ml 450 ml Tube Feeding 780 ml Output Urine Total 800 ml 1100 ml Microbiology Date/Time Source Procedure Growth Status 07/11/19 12:00 Blood Blood Culture - Final NO GROWTH AFTER 5 DAYS Complete 07/04/19 10:15 Sputum Gram Stain - Final Complete 07/04/19 10:15 Sputum Culture - Final Nicolle Albicans Usual Respiratory Valery Complete 07/11/19 21:20 Urine,Clean Catch Urine Culture - Final NO GROWTH AFTER 48 HOURS Complete 07/04/19 00:43 Rectum - Final NO CARBAPENEM-RESISTANT ENTEROBACTERI... Complete Current Medications Medications (Trade) Dose Ordered Sig/Genoveva Route PRN Reason Start Time Stop Time Status Last Admin Dose Admin Acetaminophen (Tylenol) 650 mg Q6H PRN GT Mild Pain/Temp > 100.5 07/25/19 16:15 08/24/19 16:14 Acetaminophen (Tylenol) 650 mg Q6H PRN GT Headache 07/26/19 13:00 08/25/19 12:59 Acetaminophen/ Codeine Phosphate (Tylenol #3) 1 tab Q4H PRN GT Moderate Pain (Pain Scale 4-6) 07/26/19 13:00 08/02/19 12:59 Albuterol/ Ipratropium (Albuterol/ Ipratropium) 3 ml Q4H PRN HHN Shortness of Breath 07/26/19 21:30 07/31/19 21:29 Albuterol/ Ipratropium (Albuterol/ Ipratropium) 3 ml Q4HRT HHN 07/26/19 23:00 07/31/19 22:59 07/30/19 07:47 Amiodarone HCl (Cordarone) 200 mg DAILY ORAL 07/29/19 09:00 08/28/19 08:59 07/30/19 08:46 Dextrose (Dextrose 50%) 25 ml Q30M PRN IV Hypoglycemia 07/19/19 06:30 08/11/19 11:59 Dextrose (Dextrose 50%) 50 ml Q30M PRN IV Hypoglycemia 07/19/19 06:30 08/11/19 11:59 Finasteride (Proscar) 5 mg DAILY ORAL 07/19/19 09:00 08/13/19 08:59 07/30/19 08:46 Hydralazine HCl (Apresoline) 10 mg Q4H PRN IV bp over 160 syst 07/19/19 06:30 08/05/19 06:29 Insulin Aspart (NovoLOG) Q6HR SUBQ 07/19/19 12:00 08/11/19 16:29 07/29/19 17:18 Metoprolol Tartrate (Lopressor) 25 mg Q12HR ORAL 07/27/19 21:00 08/26/19 20:59 07/29/19 21:05 Morphine Sulfate (Morphine Sulfate) 2 mg Q1H PRN IVP Severe Pain (Pain Scale 7-10) 07/26/19 13:00 08/02/19 12:59 Nitroglycerin (Ntg) 1 patch Q24H TDERMAL 07/19/19 12:30 08/05/19 12:29 07/29/19 11:40 Ondansetron HCl (Zofran) 4 mg Q6H PRN IVP Nausea & Vomiting 07/26/19 13:00 08/25/19 12:59 Pantoprazole (Protonix) 40 mg Q12HR IV 07/19/19 09:00 08/04/19 11:14 07/30/19 08:46 Polyethylene Glycol (Miralax) 17 gm DAILY GT 07/26/19 09:00 08/24/19 11:59 07/29/19 08:44 Potassium Chloride (K-Dur) 20 meq DAILY GT 07/22/19 09:00 08/21/19 08:59 07/30/19 08:46 Promethazine HCl/ Codeine (Phenergan with Codeine) 5 ml Q4H PRN GT For Cough 07/25/19 16:00 08/03/19 06:29 Sennosides (Senokot) 8.6 mg DAILY GT 07/26/19 09:00 08/24/19 11:59 07/30/19 08:45 Sodium Chloride 1,000 ml @ 75 mls/hr [id number] IV 07/22/19 16:41 08/21/19 16:40 07/29/19 21:12 Tamsulosin HCl (Flomax) 0.4 mg BEDTIME ORAL 07/19/19 21:00 08/12/19 20:59 07/29/19 21:05 Laboratory Tests 07/30/19 07:01: White Blood Count 5.8, Red Blood Count 3.05L, Hemoglobin 8.5L, Hematocrit 25.3L , Mean Corpuscular Volume 83, Mean Corpuscular Hemoglobin 27.9, Mean Corpuscular Hemoglobin Concent 33.7, Red Cell Distribution Width 16.2H, Platelet Count 156, Mean Platelet Volume 7.4, Neutrophils (%) (Auto) 70.9, Lymphocytes (%) (Auto) 15.6L, Monocytes (%) (Auto) 6.2, Eosinophils (%) (Auto) 6.0H, Basophils (%) (Auto) 1.2, Sodium Level 138, Potassium Level 4.4, Chloride Level 101, Carbon Dioxide Level 30, Anion Gap 7, Blood Urea Nitrogen 22H, Creatinine 0.7, Estimat Glomerular Filtration Rate > 60, Glucose Level 116H, Calcium Level 8.5 Height (Feet): 5 Height (Inches): 6.00 Weight (Pounds): 185 Objective exam stable nixon indwelling urine yellow/kristen CT A/P (07/12) noted, KUB noted Clayton Callejas MD Jul 30, 2019 09:12
--- NOTE | 2019-07-30 11:32 | Cardiac Electrophysiology PN ---
Assessment/Plan Assessment/Plan 1. [place] fib with RVR. On Lopressor 25 mg PEG bid and Amiodarone 200 daily Start Eliquis 2.5 bid 2. Status post bradycardic arrest off any sinus node or AV destinee blocking agents. Non infarctional. Tachy hillary as also develops atrial fib with RVR. S/P DDD [facility] PPM implant 07/26/19. 3. NSTEMI. Due to arrest.On Lopressor 25 bid 4. Respiratory failure. D. Dimer positive. VQ scan pre code was low probability. Extubated 07/11/19 5. Dehydration and hyperatremia, resolved 6. S/P PEG 7. Diabetes. 8. Benign prostatic hypertrophy.FU Dr. Callejas. S/P CT abdomen that showed Left hydronephrosis. Tolerated Cystoscopy, Ureteroscopy and Laser lithotripsy and ureteral stent by Dr Callejas Alert with no CP. EF 65% 9. Full code. CARI RN Subjective Subjective S/P DDD [facility] [place] PPM implant 07/26/19. A pacing.Confused in NAD Objective Last 24 Hour Vital Signs Date Time Temp Pulse Resp B/P (MAP) Pulse Ox O2 Delivery O2 Flow Rate FiO2 07/30/19 08:47 70 117/61 07/30/19 08:07 Room Air 2.0 Nasal Cannula 07/30/19 08:00 71 07/30/19 08:00 98.2 70 20 117/61 (79) 95 07/30/19 07:57 79 18 99 Nasal Cannula 2.0 28 77 18 96 07/30/19 07:53 96 Nasal Cannula 2.0 28 07/30/19 04:00 97.5 74 16 116/53 (74) 97 07/30/19 04:00 75 07/30/19 03:15 71 18 99 Nasal Cannula 2.0 28 69 18 98 07/30/19 00:00 98.4 73 24 107/61 (76) 94 07/30/19 00:00 73 07/29/19 22:48 72 18 99 Nasal Cannula 2.0 28 70 18 99 07/29/19 21:05 80 125/54 07/29/19 21:00 Room Air 2.0 Nasal Cannula 07/29/19 20:00 97.5 80 16 125/54 (77) 99 07/29/19 20:00 75 07/29/19 19:55 95 Nasal Cannula 2.0 28 07/29/19 19:55 75 18 99 Nasal Cannula 2.0 28 73 18 95 07/29/19 16:00 98.9 70 20 120/58 (78) 95 07/29/19 15:38 74 18 99 Nasal Cannula 2.0 28 75 18 95 07/29/19 15:20 73 07/29/19 12:00 98.9 70 20 122/68 (86) 95 07/29/19 11:45 74 18 98 Nasal Cannula 2.0 71 18 95 07/29/19 11:40 128/70 07/29/19 11:39 69 Intake and Output 07/29/19 07/30/19 19:00 07:00 Intake Total 1430 ml 450 ml Output Total 800 ml 1100 ml Balance 630 ml -650 ml Free Water 200 ml IV Total 450 ml 450 ml Tube Feeding 780 ml Output Urine Total 800 ml 1100 ml Laboratory Tests Test 07/30/19 07:01 White Blood Count 5.8 K/UL (4.8-10.8) Red Blood Count 3.05 M/UL (4.70-6.10) L Hemoglobin 8.5 G/DL (14.2-18.0) L Hematocrit 25.3 % (42.0-52.0) L Mean Corpuscular Volume 83 FL (80-99) Mean Corpuscular Hemoglobin 27.9 PG (27.0-31.0) Mean Corpuscular Hemoglobin Concent 33.7 G/DL (32.0-36.0) Red Cell Distribution Width 16.2 % (11.6-14.8) H Platelet Count 156 K/UL (150-450) Mean Platelet Volume 7.4 FL (6.5-10.1) Neutrophils (%) (Auto) 70.9 % (45.0-75.0) Lymphocytes (%) (Auto) 15.6 % (20.0-45.0) L Monocytes (%) (Auto) 6.2 % (1.0-10.0) Eosinophils (%) (Auto) 6.0 % (0.0-3.0) H Basophils (%) (Auto) 1.2 % (0.0-2.0) Sodium Level 138 MMOL/L (136-145) Potassium Level 4.4 MMOL/L (3.5-5.1) Chloride Level 101 MMOL/L (98-107) Carbon Dioxide Level 30 MMOL/L (21-32) Anion Gap 7 mmol/L (5-15) Blood Urea Nitrogen 22 mg/dL (7-18) H Creatinine 0.7 MG/DL (0.55-1.30) Estimat Glomerular Filtration Rate > 60 mL/min (>60) Glucose Level 116 MG/DL (74-106) H Calcium Level 8.5 MG/DL (8.5-10.1) Objective HEAD AND NECK: Mild JVD. LUNGS: Decreased breath sounds. CARDIOVASCULAR: IRRR . Pacer left subclavian no hematoma. No G/R/M ABDOMEN: Status post G-tube. EXTREMITIES: No pitting edema. Enio Santos MD Jul 30, 2019 11:32
[2019-07-30 12:00] VITALS: BP 141/73
--- NOTE | 2019-07-30 12:32 | Pulmonology Progress Note ---
Assessment/Plan Problems: (1) Occult blood positive stool (2) Cardiac arrest with successful resuscitation (3) Respiratory failure with hypoxia (4) Sepsis Assessment & Plan: resolved, off abx (5) Anemia (6) CARA (acute kidney injury) (7) Hypertensive heart disease (8) BPH (benign prostatic hyperplasia) (9) DVT (deep venous thrombosis) (10) Parkinson disease (11) Diabetes mellitus (12) Feeding by G-tube Assessment/Plan H/H slowly trending down. OB positive, GI consult reviewed, awaiting for repeat stool OB s/p lithotripsy and uretral stent placement pacemaker done on monday wbc wnl, afebrile bun/creatinine better no new cultures tolerating diet aspiration precaution titrate fio2 to sat of 92% sliding scale\ Subjective ROS Limited/Unobtainable: No Constitutional: Reports: no symptoms HEENT: Repors: no symptoms Respiratory: Reports: no symptoms Allergies: Coded Allergies: PENICILLINS (Verified Allergy, Unknown, 07/04/19) Objective Last 24 Hour Vital Signs Date Time Temp Pulse Resp B/P (MAP) Pulse Ox O2 Delivery O2 Flow Rate FiO2 07/30/19 12:00 97.5 75 20 141/73 (95) 95 07/30/19 08:47 70 117/61 07/30/19 08:07 Room Air 2.0 Nasal Cannula 07/30/19 08:00 71 07/30/19 08:00 98.2 70 20 117/61 (79) 95 07/30/19 07:57 79 18 99 Nasal Cannula 2.0 28 77 18 96 07/30/19 07:53 96 Nasal Cannula 2.0 28 07/30/19 04:00 97.5 74 16 116/53 (74) 97 07/30/19 04:00 75 07/30/19 03:15 71 18 99 Nasal Cannula 2.0 28 69 18 98 07/30/19 00:00 98.4 73 24 107/61 (76) 94 07/30/19 00:00 73 07/29/19 22:48 72 18 99 Nasal Cannula 2.0 28 70 18 99 07/29/19 21:05 80 125/54 07/29/19 21:00 Room Air 2.0 Nasal Cannula 07/29/19 20:00 97.5 80 16 125/54 (77) 99 07/29/19 20:00 75 07/29/19 19:55 95 Nasal Cannula 2.0 28 07/29/19 19:55 75 18 99 Nasal Cannula 2.0 28 73 18 95 07/29/19 16:00 98.9 70 20 120/58 (78) 95 07/29/19 15:38 74 18 99 Nasal Cannula 2.0 28 75 18 95 07/29/19 15:20 73 Intake and Output 07/29/19 07/30/19 19:00 07:00 Intake Total 1430 ml 450 ml Output Total 800 ml 1100 ml Balance 630 ml -650 ml Free Water 200 ml IV Total 450 ml 450 ml Tube Feeding 780 ml Output Urine Total 800 ml 1100 ml Objective doing better HEENT: normocephalic, atraumatic Respiratory/Chest: chest wall non-tender, lungs clear Cardiovascular: normal peripheral pulses, normal rate Abdomen: normal bowel sounds, no organomegaly Neurologic/Psychiatric: tie in hand II-XII grossly normal Laboratory Tests 07/30/19 07:01: White Blood Count 5.8, Red Blood Count 3.05L, Hemoglobin 8.5L, Hematocrit 25.3L , Mean Corpuscular Volume 83, Mean Corpuscular Hemoglobin 27.9, Mean Corpuscular Hemoglobin Concent 33.7, Red Cell Distribution Width 16.2H, Platelet Count 156, Mean Platelet Volume 7.4, Neutrophils (%) (Auto) 70.9, Lymphocytes (%) (Auto) 15.6L, Monocytes (%) (Auto) 6.2, Eosinophils (%) (Auto) 6.0H, Basophils (%) (Auto) 1.2, Sodium Level 138, Potassium Level 4.4, Chloride Level 101, Carbon Dioxide Level 30, Anion Gap 7, Blood Urea Nitrogen 22H, Creatinine 0.7, Estimat Glomerular Filtration Rate > 60, Glucose Level 116H, Calcium Level 8.5 Current Medications Medications (Trade) Dose Ordered Sig/Genoveva Route PRN Reason Start Time Stop Time Status Last Admin Dose Admin Acetaminophen (Tylenol) 650 mg Q6H PRN GT Mild Pain/Temp > 100.5 07/25/19 16:15 08/24/19 16:14 Acetaminophen (Tylenol) 650 mg Q6H PRN GT Headache 07/26/19 13:00 08/25/19 12:59 Acetaminophen/ Codeine Phosphate (Tylenol #3) 1 tab Q4H PRN GT Moderate Pain (Pain Scale 4-6) 07/26/19 13:00 08/02/19 12:59 Albuterol/ Ipratropium (Albuterol/ Ipratropium) 3 ml Q4H PRN HHN Shortness of Breath 07/26/19 21:30 07/31/19 21:29 Albuterol/ Ipratropium (Albuterol/ Ipratropium) 3 ml Q4HRT HHN 07/26/19 23:00 07/31/19 22:59 07/30/19 11:46 Amiodarone HCl (Cordarone) 200 mg DAILY ORAL 07/29/19 09:00 08/28/19 08:59 07/30/19 08:46 Apixaban (Eliquis) 2.5 mg BID ORAL 07/30/19 18:00 08/29/19 17:59 Dextrose (Dextrose 50%) 25 ml Q30M PRN IV Hypoglycemia 07/19/19 06:30 08/11/19 11:59 Dextrose (Dextrose 50%) 50 ml Q30M PRN IV Hypoglycemia 07/19/19 06:30 08/11/19 11:59 Docusate Sodium (Colace) 100 mg TWICE A DAY NG 07/30/19 18:00 08/29/19 17:59 Finasteride (Proscar) 5 mg DAILY ORAL 07/19/19 09:00 08/13/19 08:59 07/30/19 08:46 Hydralazine HCl (Apresoline) 10 mg Q4H PRN IV bp over 160 syst 07/19/19 06:30 08/05/19 06:29 Insulin Aspart (NovoLOG) Q6HR SUBQ 07/19/19 12:00 08/11/19 16:29 07/29/19 17:18 Metoprolol Tartrate (Lopressor) 25 mg Q12HR ORAL 07/27/19 21:00 08/26/19 20:59 07/29/19 21:05 Morphine Sulfate (Morphine Sulfate) 2 mg Q1H PRN IVP Severe Pain (Pain Scale 7-10) 07/26/19 13:00 08/02/19 12:59 Nitroglycerin (Ntg) 1 patch Q24H TDERMAL 07/19/19 12:30 08/05/19 12:29 07/29/19 11:40 Ondansetron HCl (Zofran) 4 mg Q6H PRN IVP Nausea & Vomiting 07/26/19 13:00 08/25/19 12:59 Pantoprazole (Protonix) 40 mg Q12HR IV 07/19/19 09:00 08/04/19 11:14 07/30/19 08:46 Polyethylene Glycol (Miralax) 17 gm DAILY GT 07/26/19 09:00 08/24/19 11:59 07/29/19 08:44 Potassium Chloride (K-Dur) 20 meq DAILY GT 07/22/19 09:00 08/21/19 08:59 07/30/19 08:46 Promethazine HCl/ Codeine (Phenergan with Codeine) 5 ml Q4H PRN GT For Cough 07/25/19 16:00 08/03/19 06:29 Sennosides (Senokot) 8.6 mg DAILY GT 07/26/19 09:00 08/24/19 11:59 07/30/19 08:45 Sodium Chloride 1,000 ml @ 75 mls/hr [id number] IV 07/22/19 16:41 08/21/19 16:40 07/29/19 21:12 Tamsulosin HCl (Flomax) 0.4 mg BEDTIME ORAL 07/19/19 21:00 08/12/19 20:59 07/29/19 21:05 Kathryn Lopez MD Jul 30, 2019 12:32
[2019-07-30] MEDS: Nitroglycerin Patch 0.4mg TDERMAL SCH (12:55)
--- NOTE | 2019-07-30 13:57 | Nephrology Progress Note ---
Assessment/Plan Problem List: (1) RIA (acute kidney injury) (2) Cardiac arrest with successful resuscitation (3) Respiratory failure with hypoxia (4) Hydronephrosis Assessment patient have Ria due to Low BP and s/p arrest elevated liver enzymes for same reason others: 1. Acute hypoxemic respiratory failure. 2. Hypotension possible sepsis. 3. Diabetes type 2. 4. Parkinson disease. 5. Hypercholesterolemia. 6. EjFx 65% reported 7. Dysphagia. 8. Benign prostatic hypertrophy. Plan s/p Cr 1.6 now wnl mag supplement Extubated 2/ Nitro- Phos , K , Mag supplement as needed keep BP above 100 syst Pulm support monitor renal parameters discussed with RN VALENTINA: Moderate left hydronephrosis. Juan catheter. Echogenic right kidney. Suspected medical renal disease. CXR 07/15 IMPRESSION: Infiltrate and/or pleural effusion suspected at the left lung base. Mild pulmonary vascular congestion not excluded. Correlate clinically. Subjective ROS Limited/Unobtainable: No Constitutional: Reports: malaise, weakness Objective Objective Last 24 Hour Vital Signs Date Time Temp Pulse Resp B/P (MAP) Pulse Ox O2 Delivery O2 Flow Rate FiO2 07/30/19 12:55 141/73 07/30/19 12:00 97.5 75 20 141/73 (95) 95 07/30/19 12:00 75 07/30/19 08:47 70 117/61 07/30/19 08:07 Room Air 2.0 Nasal Cannula 07/30/19 08:00 71 07/30/19 08:00 98.2 70 20 117/61 (79) 95 07/30/19 07:57 79 18 99 Nasal Cannula 2.0 28 77 18 96 07/30/19 07:53 96 Nasal Cannula 2.0 28 07/30/19 04:00 97.5 74 16 116/53 (74) 97 07/30/19 04:00 75 07/30/19 03:15 71 18 99 Nasal Cannula 2.0 28 69 18 98 07/30/19 00:00 98.4 73 24 107/61 (76) 94 07/30/19 00:00 73 07/29/19 22:48 72 18 99 Nasal Cannula 2.0 28 70 18 99 07/29/19 21:05 80 125/54 07/29/19 21:00 Room Air 2.0 Nasal Cannula 07/29/19 20:00 97.5 80 16 125/54 (77) 99 07/29/19 20:00 75 07/29/19 19:55 95 Nasal Cannula 2.0 28 07/29/19 19:55 75 18 99 Nasal Cannula 2.0 28 73 18 95 07/29/19 16:00 98.9 70 20 120/58 (78) 95 07/29/19 15:38 74 18 99 Nasal Cannula 2.0 28 75 18 95 07/29/19 15:20 73 Intake and Output 07/29/19 07/30/19 19:00 07:00 Intake Total 1430 ml 450 ml Output Total 800 ml 1100 ml Balance 630 ml -650 ml Free Water 200 ml IV Total 450 ml 450 ml Tube Feeding 780 ml Output Urine Total 800 ml 1100 ml Laboratory Tests 07/30/19 07:01: White Blood Count 5.8, Red Blood Count 3.05L, Hemoglobin 8.5L, Hematocrit 25.3L , Mean Corpuscular Volume 83, Mean Corpuscular Hemoglobin 27.9, Mean Corpuscular Hemoglobin Concent 33.7, Red Cell Distribution Width 16.2H, Platelet Count 156, Mean Platelet Volume 7.4, Neutrophils (%) (Auto) 70.9, Lymphocytes (%) (Auto) 15.6L, Monocytes (%) (Auto) 6.2, Eosinophils (%) (Auto) 6.0H, Basophils (%) (Auto) 1.2, Sodium Level 138, Potassium Level 4.4, Chloride Level 101, Carbon Dioxide Level 30, Anion Gap 7, Blood Urea Nitrogen 22H, Creatinine 0.7, Estimat Glomerular Filtration Rate > 60, Glucose Level 116H, Calcium Level 8.5 Height (Feet): 5 Height (Inches): 6.00 Weight (Pounds): 185 General Appearance: no apparent distress Cardiovascular: normal rate Respiratory/Chest: decreased breath sounds Abdomen: soft Objective no change Oskar Mohr MD Jul 30, 2019 13:57
[2019-07-30 16:00] VITALS: BP 138/71
--- NOTE | 2019-07-30 17:05 | NUR ---
WEEKLY SWALLOW/SPEECH THERAPY SUMMARY: PATIENT CLEARED FOR ST INTERVENTION BY VIRGIL JIMENEZ. PATIENT SEEN HE WAS SITTING SUPINE IN BED. HE REMAINS NPO WITH FULL NUTRITION/HYDRATION SUPPORT VIA PEG. DURING THIS PAST WEEK, GOAL MET RELATIVE TO STAFF TRAINING /RETURN DEMONSTRATION WITH [employer]G[facility]ERS/SPOUSE. WITH PATIENT INCREASINGLY AWAKE/ALERT, A VIDEO SWALLOW STUDY CAN BE SCHEDULED TO DETERMINE EFFICACY OF OROPHARYNGEAL PHASE OF SWALLOW IN ORDER TO RETURN P.O. IN SMALL AMOUNTS FOR QUALITY OF LIFE
[2019-07-30] MEDS: Eliquis 2.5mg tablet ORAL SCH (17:30)
[2019-07-30] MEDS: Docusate 100mg/10ml Liq NG SCH (17:50)
--- NOTE | 2019-07-30 17:59 | Infectious Diseases Prog Note ---
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 Multiple nonobstructive stones within the right kidney. Thickening of the wall the urinary bladder consistent with cystitis. Juan catheter in good position. 10 x 7 cm left inguinal hernia containing bowel. No evidence of obstruction.Trace left pleural effusion. Bilateral posterior basal atelectasis. Sepsis, Sp Probable UTI, sp rx Acute hypoxic respiratory failure, intubated 07/05; extubated 07/11 Aspiration pneumonia vs pneumonitis Gram positive bacteremia- contaminant -07/18 CXR: Mild pulmonary vascular congestion may be present. Correlate clinically.Basal atelectasis versus infiltrate. No change -07/15 CXR:Infiltrate and/or pleural effusion suspected at the left lung base. Mild pulmonary vascular congestion not excluded. Correlate clinically. -07/13 CXR: Improving pulmonary venous congestion with unchanged small left pleural effusion and slight worsening of left basilar infiltrate, indeterminate between atelectasis and pneumonia -07/11 u/a wbc 2-4, nit neg, leuk +3; ucx Neg Bcx Neg -07/06 Bcx Neg -07/05 CXR:Mild CHF -u/a wbc 5-10, nit neg, leuk +2; ucx Neg -Bcx 06/08 dipteriods -sp cx usual resp rupert -CXR: No acute process -influenza sc neg -v. duplex: no DVT -V/q scan:Findings are deemed low probability for pulmonary embolus Fever; low grade, recurrent- SP Mild leukocytosis,recurrent- SP CARA;SP Dm2 dysphagia s/p GT hx of PNA parkinson disease HTN bed bound [facility] resident Plan: - Monitor off abx -07/27/19 SP Cefoxitin #4 ( Peripoerative) -07/17 SP Ceftriaxone #3 -07/15 SP Flagyl # 11, Cefepime #12 -07/09 SP IV Vancomycin #5 -07/04 SP Levaquin x1 -Monitor CBC/CMP, temperatures -aspiration precautions -GT care -Cards, Uro, nephro f/u -Cdiff if diarrhea Thank you for this consultation. Will continue to follow along with you. Subjective Allergies: Coded Allergies: PENICILLINS (Verified Allergy, Unknown, 07/04/19) Subjective afebrile no acute event Objective Vital Signs Last 24 Hour Vital Signs Date Time Temp Pulse Resp B/P (MAP) Pulse Ox O2 Delivery O2 Flow Rate FiO2 07/30/19 16:50 78 17 100 Nasal Cannula 2.0 28 75 18 99 07/30/19 16:00 81 07/30/19 16:00 97.2 72 20 138/71 (93) 98 07/30/19 12:55 141/73 07/30/19 12:00 97.5 75 20 141/73 (95) 95 07/30/19 12:00 75 07/30/19 11:56 74 20 100 Nasal Cannula 2.0 28 75 20 96 07/30/19 11:46 76 18 99 Nasal Cannula 2.0 28 72 18 97 07/30/19 08:47 70 117/61 07/30/19 08:07 Room Air 2.0 Nasal Cannula 07/30/19 08:00 71 07/30/19 08:00 98.2 70 20 117/61 (79) 95 07/30/19 07:57 79 18 99 Nasal Cannula 2.0 28 77 18 96 07/30/19 07:53 96 Nasal Cannula 2.0 28 07/30/19 04:00 97.5 74 16 116/53 (74) 97 07/30/19 04:00 75 07/30/19 03:15 71 18 99 Nasal Cannula 2.0 28 69 18 98 07/30/19 00:00 98.4 73 24 107/61 (76) 94 07/30/19 00:00 73 07/29/19 22:48 72 18 99 Nasal Cannula 2.0 28 70 18 99 07/29/19 21:05 80 125/54 07/29/19 21:00 Room Air 2.0 Nasal Cannula 07/29/19 20:00 97.5 80 16 125/54 (77) 99 07/29/19 20:00 75 07/29/19 19:55 95 Nasal Cannula 2.0 28 07/29/19 19:55 75 18 99 Nasal Cannula 2.0 28 73 18 95 Height (Feet): 5 Height (Inches): 6.00 Weight (Pounds): 185 Respiratory/Chest: normal breath sounds Cardiovascular: regular rhythm Abdomen: non distended Laboratory Tests Test 07/30/19 07:01 White Blood Count 5.8 K/UL (4.8-10.8) Red Blood Count 3.05 M/UL (4.70-6.10) L Hemoglobin 8.5 G/DL (14.2-18.0) L Hematocrit 25.3 % (42.0-52.0) L Mean Corpuscular Volume 83 FL (80-99) Mean Corpuscular Hemoglobin 27.9 PG (27.0-31.0) Mean Corpuscular Hemoglobin Concent 33.7 G/DL (32.0-36.0) Red Cell Distribution Width 16.2 % (11.6-14.8) H Platelet Count 156 K/UL (150-450) Mean Platelet Volume 7.4 FL (6.5-10.1) Neutrophils (%) (Auto) 70.9 % (45.0-75.0) Lymphocytes (%) (Auto) 15.6 % (20.0-45.0) L Monocytes (%) (Auto) 6.2 % (1.0-10.0) Eosinophils (%) (Auto) 6.0 % (0.0-3.0) H Basophils (%) (Auto) 1.2 % (0.0-2.0) Sodium Level 138 MMOL/L (136-145) Potassium Level 4.4 MMOL/L (3.5-5.1) Chloride Level 101 MMOL/L (98-107) Carbon Dioxide Level 30 MMOL/L (21-32) Anion Gap 7 mmol/L (5-15) Blood Urea Nitrogen 22 mg/dL (7-18) H Creatinine 0.7 MG/DL (0.55-1.30) Estimat Glomerular Filtration Rate > 60 mL/min (>60) Glucose Level 116 MG/DL (74-106) H Calcium Level 8.5 MG/DL (8.5-10.1) Current Medications Medications (Trade) Dose Ordered Sig/Genoveva Route PRN Reason Start Time Stop Time Status Last Admin Dose Admin Acetaminophen (Tylenol) 650 mg Q6H PRN GT Mild Pain/Temp > 100.5 2/20/20 16:15 08/24/19 16:14 Acetaminophen (Tylenol) 650 mg Q6H PRN GT Headache 07/26/19 13:00 08/25/19 12:59 Acetaminophen/ Codeine Phosphate (Tylenol #3) 1 tab Q4H PRN GT Moderate Pain (Pain Scale 4-6) 07/26/19 13:00 08/02/19 12:59 Albuterol/ Ipratropium (Albuterol/ Ipratropium) 3 ml Q4H PRN HHN Shortness of Breath 07/26/19 21:30 07/31/19 21:29 Albuterol/ Ipratropium (Albuterol/ Ipratropium) 3 ml Q4HRT HHN 07/26/19 23:00 07/31/19 22:59 07/30/19 16:50 Amiodarone HCl (Cordarone) 200 mg DAILY ORAL 07/29/19 09:00 08/28/19 08:59 07/30/19 08:46 Apixaban (Eliquis) 2.5 mg BID ORAL 07/30/19 18:00 08/29/19 17:59 07/30/19 17:30 Dextrose (Dextrose 50%) 25 ml Q30M PRN IV Hypoglycemia 07/19/19 06:30 08/11/19 11:59 Dextrose (Dextrose 50%) 50 ml Q30M PRN IV Hypoglycemia 07/19/19 06:30 08/11/19 11:59 Docusate Sodium (Colace) 100 mg TWICE A DAY NG 07/30/19 18:00 08/29/19 17:59 Finasteride (Proscar) 5 mg DAILY ORAL 07/19/19 09:00 08/13/19 08:59 07/30/19 08:46 Hydralazine HCl (Apresoline) 10 mg Q4H PRN IV bp over 160 syst 07/19/19 06:30 08/05/19 06:29 Insulin Aspart (NovoLOG) Q6HR SUBQ 07/19/19 12:00 08/11/19 16:29 07/29/19 17:18 Metoprolol Tartrate (Lopressor) 25 mg Q12HR ORAL 07/27/19 21:00 08/26/19 20:59 07/29/19 21:05 Morphine Sulfate (Morphine Sulfate) 2 mg Q1H PRN IVP Severe Pain (Pain Scale 7-10) 07/26/19 13:00 08/02/19 12:59 Nitroglycerin (Ntg) 1 patch Q24H TDERMAL 07/19/19 12:30 08/05/19 12:29 07/30/19 12:55 Ondansetron HCl (Zofran) 4 mg Q6H PRN IVP Nausea & Vomiting 07/26/19 13:00 08/25/19 12:59 Pantoprazole (Protonix) 40 mg Q12HR IV 07/19/19 09:00 08/04/19 11:14 07/30/19 08:46 Polyethylene Glycol (Miralax) 17 gm DAILY GT 07/26/19 09:00 08/24/19 11:59 07/29/19 08:44 Potassium Chloride (K-Dur) 20 meq DAILY GT 07/22/19 09:00 08/21/19 08:59 07/30/19 08:46 Promethazine HCl/ Codeine (Phenergan with Codeine) 5 ml Q4H PRN GT For Cough 07/25/19 16:00 08/03/19 06:29 Sennosides (Senokot) 8.6 mg DAILY GT 07/26/19 09:00 08/24/19 11:59 07/30/19 08:45 Sodium Chloride 1,000 ml @ 75 mls/hr [id number] IV 07/22/19 16:41 08/21/19 16:40 07/29/19 21:12 Tamsulosin HCl (Flomax) 0.4 mg BEDTIME ORAL 07/19/19 21:00 08/12/19 20:59 07/29/19 21:05 William Ely MD Jul 30, 2019 17:59
--- NOTE | 2019-07-30 19:10 | NUR ---
HAND-OFF: Report given to Chevy Sanchez.
--- NOTE | 2019-07-30 19:18 | Internal Med Progress Note ---
Subjective Date of Service: Jul 30, 2019 Physician Name Shukri Glover Attending Physician Rayshawn Woods MD Current Medications Medications (Trade) Dose Ordered Sig/Genoveva Route PRN Reason Start Time Stop Time Status Last Admin Dose Admin Acetaminophen (Tylenol) 650 mg Q6H PRN GT Mild Pain/Temp > 100.5 07/25/19 16:15 08/24/19 16:14 Acetaminophen (Tylenol) 650 mg Q6H PRN GT Headache 07/26/19 13:00 08/25/19 12:59 Acetaminophen/ Codeine Phosphate (Tylenol #3) 1 tab Q4H PRN GT Moderate Pain (Pain Scale 4-6) 07/26/19 13:00 08/02/19 12:59 Albuterol/ Ipratropium (Albuterol/ Ipratropium) 3 ml Q4H PRN HHN Shortness of Breath 07/26/19 21:30 07/31/19 21:29 Albuterol/ Ipratropium (Albuterol/ Ipratropium) 3 ml Q4HRT HHN 07/26/19 23:00 07/31/19 22:59 07/30/19 16:50 Amiodarone HCl (Cordarone) 200 mg DAILY ORAL 07/29/19 09:00 08/28/19 08:59 07/30/19 08:46 Apixaban (Eliquis) 2.5 mg BID ORAL 07/30/19 18:00 08/29/19 17:59 07/30/19 17:30 Dextrose (Dextrose 50%) 25 ml Q30M PRN IV Hypoglycemia 07/19/19 06:30 08/11/19 11:59 Dextrose (Dextrose 50%) 50 ml Q30M PRN IV Hypoglycemia 07/19/19 06:30 08/11/19 11:59 Docusate Sodium (Colace) 100 mg TWICE A DAY NG 07/30/19 18:00 08/29/19 17:59 Finasteride (Proscar) 5 mg DAILY ORAL 07/19/19 09:00 08/13/19 08:59 07/30/19 08:46 Hydralazine HCl (Apresoline) 10 mg Q4H PRN IV bp over 160 syst 07/19/19 06:30 08/05/19 06:29 Insulin Aspart (NovoLOG) Q6HR SUBQ 07/19/19 12:00 08/11/19 16:29 07/29/19 17:18 Metoprolol Tartrate (Lopressor) 25 mg Q12HR ORAL 07/27/19 21:00 08/26/19 20:59 07/29/19 21:05 Morphine Sulfate (Morphine Sulfate) 2 mg Q1H PRN IVP Severe Pain (Pain Scale 7-10) 07/26/19 13:00 08/02/19 12:59 Nitroglycerin (Ntg) 1 patch Q24H TDERMAL 07/19/19 12:30 08/05/19 12:29 07/30/19 12:55 Ondansetron HCl (Zofran) 4 mg Q6H PRN IVP Nausea & Vomiting 07/26/19 13:00 08/25/19 12:59 Pantoprazole (Protonix) 40 mg Q12HR IV 07/19/19 09:00 08/04/19 11:14 07/30/19 08:46 Polyethylene Glycol (Miralax) 17 gm DAILY GT 07/26/19 09:00 08/24/19 11:59 07/29/19 08:44 Potassium Chloride (K-Dur) 20 meq DAILY GT 07/22/19 09:00 08/21/19 08:59 07/30/19 08:46 Promethazine HCl/ Codeine (Phenergan with Codeine) 5 ml Q4H PRN GT For Cough 07/25/19 16:00 08/03/19 06:29 Sennosides (Senokot) 8.6 mg DAILY GT 07/26/19 09:00 08/24/19 11:59 07/30/19 08:45 Sodium Chloride 1,000 ml @ 75 mls/hr [id number] IV 07/22/19 16:41 08/21/19 16:40 07/29/19 21:12 Tamsulosin HCl (Flomax) 0.4 mg BEDTIME ORAL 07/19/19 21:00 08/12/19 20:59 07/29/19 21:05 Allergies: Coded Allergies: PENICILLINS (Verified Allergy, Unknown, 07/04/19) ROS Limited/Unobtainable: Yes Subjective 83 YO M admitted with dyspnea, now respiratory failure. Cover for Int Med-Dr Chuck. Extubated 07/11/19. S/P cystoscopy/left ureteroscopy/stent/right ESWL 07/24/19. S/P Pacemaker implantation on Monday07/26/19. Objective Last Vital Signs Date Time Temp Pulse Resp B/P (MAP) Pulse Ox O2 Delivery O2 Flow Rate FiO2 07/30/19 16:50 78 17 100 Nasal Cannula 2.0 28 75 18 99 07/30/19 16:00 97.2 138/71 (93) Laboratory Tests Test 07/30/19 07:01 07/30/19 15:53 White Blood Count 5.8 K/UL (4.8-10.8) Red Blood Count 3.05 M/UL (4.70-6.10) L Hemoglobin 8.5 G/DL (14.2-18.0) L Hematocrit 25.3 % (42.0-52.0) L Mean Corpuscular Volume 83 FL (80-99) Mean Corpuscular Hemoglobin 27.9 PG (27.0-31.0) Mean Corpuscular Hemoglobin Concent 33.7 G/DL (32.0-36.0) Red Cell Distribution Width 16.2 % (11.6-14.8) H Platelet Count 156 K/UL (150-450) Mean Platelet Volume 7.4 FL (6.5-10.1) Neutrophils (%) (Auto) 70.9 % (45.0-75.0) Lymphocytes (%) (Auto) 15.6 % (20.0-45.0) L Monocytes (%) (Auto) 6.2 % (1.0-10.0) Eosinophils (%) (Auto) 6.0 % (0.0-3.0) H Basophils (%) (Auto) 1.2 % (0.0-2.0) Sodium Level 138 MMOL/L (136-145) Potassium Level 4.4 MMOL/L (3.5-5.1) Chloride Level 101 MMOL/L (98-107) Carbon Dioxide Level 30 MMOL/L (21-32) Anion Gap 7 mmol/L (5-15) Blood Urea Nitrogen 22 mg/dL (7-18) H Creatinine 0.7 MG/DL (0.55-1.30) Estimat Glomerular Filtration Rate > 60 mL/min (>60) Glucose Level 116 MG/DL (74-106) H Calcium Level 8.5 MG/DL (8.5-10.1) Stool Occult Blood Pending Intake and Output 07/29/19 07/30/19 19:00 07:00 Intake Total 1430 ml 450 ml Output Total 800 ml 1100 ml Balance 630 ml -650 ml Free Water 200 ml IV Total 450 ml 450 ml Tube Feeding 780 ml Output Urine Total 800 ml 1100 ml Objective PHYSICAL EXAMINATION: GENERAL: The patient is a well-developed and well-nourished male, in moderate respiratory distress. HEENT: Eyes, pupils are equal and responsive to light and accommodation. Extraocular movements are intact. NECK: Supple without lymphadenopathy. CHEST: nasal canula; Coarse breath sounds bilaterally with expiratory wheezes. Otherwise, without crackles. ABDOMINAL: Soft, nontender, and nondistended. Positive bowel sounds. No evidence of hepatosplenomegaly. Currently, no rebound or guarding noted. CARDIOVASCULAR: Tachycardic. Regular rhythm. S1 and S2 are normal without murmurs, rubs, or gallops. GENITOURINARY: Deferred. NEUROLOGICAL: Cranial nerves II to XII are grossly intact without focal deficits. EXTREMITIES: Negative for clubbing, cyanosis, or edema. Assessment/Plan Assessment/Plan ASSESSMENT: This is an 83-year-old male. 1. Dyspnea. 2. Respiratory distress. 3. Diabetes type 2. 4. Parkinson disease. 5. Hypercholesterolemia. 6. Dilated cardiomyopathy. 7. Dysphagia. 8. Benign prostatic hypertrophy. 9. 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 NSTEMI TREATMENT: 1. Dyspnea/respiratory distress. A Pulmonary consultation has been obtained with Dr. Kathryn Lopez. The patient is currently extubated. ABX=Ceftriaxone. We will follow recommendations of Pulmonary. 2. Diabetes type 2. 3. Hypercholesterolemia. 4. Dilated cardiomyopathy. 5. Dysphagia. The patient is status post PEG placement. 6. Hypertensive heart disease. 7. Benign prostatic hypertrophy. 8. ID=DR. Page 9. Urology = Dr. Callejas; S/P for cystoscopy/left ureteroscopy/stent/right ESWL 07/24/19 10. cardiology = Dr Santos 11. S/P Pacemaker implantation on Mon07/26/19 12. Discharge planning: [facility] fac Shukri Glover MD Jul 30, 2019 19:18
--- NOTE | 2019-07-30 19:30 | NUR ---
NURSE NOTES: Received pt from VIRGIL Gardner. Pt awake, alert, and talkative. Bed in lowest position. Call light within reach. Will continue to monitor.
[2019-07-30 20:00] VITALS: BP 133/63
--- NOTE | 2019-07-30 20:15 | NUR ---
NURSE NOTES: Dr. Callejas called and requested for a bladder scan. Bladder scan results were 443. Will continue to monitor.
--- NOTE | 2019-07-30 20:24 | NUR ---
NURSE NOTES: Dr. Callejas came in and gave a verbal order to re-insert the nixon. Will input order and will continue to monitor.
[2019-07-30] MEDS: Tamsulosin 0.4mg cap ORAL SCH (20:55)
[2019-07-31] VITALS: BP 114/58
[2019-07-31] MEDS: NovoLOG Insulin Flexpen SUBQ SCH ×4 (00:41→17:22)
[2019-07-31] MEDS: Albuterol/Ipratropium 3ml neb HHN SCH ×5 (03:33→20:19)
[2019-07-31 04:00] VITALS: BP 143/64
--- NOTE | 2019-07-31 07:00 | NUR ---
HAND-OFF: Report given to VIRGIL Gardner. Pt stable.
--- NOTE | 2019-07-31 07:21 | NUR ---
NURSE NOTES: Received pt in bed, AAO x 2. On NC 2L/min. No c/o of pain/distress. IV on RFA 22g noted, running NS @ 75 ml/hr. G-tube feeding noted @ 60 ml/hr. Side rail x 2. Bed in the lowest, locked, and alarm on. Call light within reach. Will continue to monitor.
[2019-07-31 07:46] LABS: ANION GAP 8 mmol/L (5-15); BLOOD UREA NITROGEN 21 mg/dL (7-18); CALCIUM 8.7 MG/DL (8.5-10.1); CARBON DIOXIDE 27 MMOL/L (21-32); CHLORIDE 105 MMOL/L (98-107); CREATININE 0.7 MG/DL (0.55-1.30); POTASSIUM 4.5 MMOL/L (3.5-5.1); SODIUM 140 MMOL/L (136-145)
[2019-07-31 07:49] LABS: BASOPHILS % (AUTO) 0.8 % (0.0-2.0); EOSINOPHILS % (AUTO) 6.1 % (0.0-3.0); HEMOGLOBIN 8.8 G/DL (14.2-18.0); LYMPHOCYTES % (AUTO) 16.5 % (20.0-45.0); MEAN CORPUSCULAR VOLUME 84 FL (80-99); MONOCYTES % (AUTO) 6.1 % (1.0-10.0); NEUTROPHILS % (AUTO) 70.6 % (45.0-75.0); PLATELET COUNT 181 K/UL (150-450); WHITE BLOOD COUNT 5.9 K/UL (4.8-10.8)
[2019-07-31 08:00] VITALS: BP 121/65
--- NOTE | 2019-07-31 08:08 | Cardiac Electrophysiology PN ---
Assessment/Plan Assessment/Plan 1. Quimby fib with RVR. On Lopressor 25 mg bid, Amiodarone 200 daily and Eliquis 2.5 bid 2. Status post hillary arrest off any sinus node or AV destinee blocking agents. Non infarctional. Tachy hillary as also develops atrial fib with RVR. S/P DDD [facility] PPM implant 07/26/19. 3. NSTEMI. Due to arrest. On Lopressor 25 bid 4. Respiratory failure. D. Dimer positive. VQ scan pre code was low probability. Extubated 07/11/19 5. Dehydration and hyperatremia, resolved 6. S/P PEG 7. Diabetes. 8. Benign prostatic hypertrophy.FU Dr. Callejas. S/P CT abdomen that showed Left hydronephrosis. Tolerated Cystoscopy, Ureteroscopy and Laser lithotripsy and ureteral stent by Dr Callejas Alert with no CP. EF 65% 9. Full code. DW microchip specialist pending Subjective Subjective A pacing since pacer implant on 07/26/19.Confused in NAD Objective Last 24 Hour Vital Signs Date Time Temp Pulse Resp B/P (MAP) Pulse Ox O2 Delivery O2 Flow Rate FiO2 07/31/19 04:00 97.5 78 20 143/64 (90) 99 07/31/19 04:00 71 07/31/19 03:36 81 17 100 Nasal Cannula 2.0 28 82 18 98 07/31/19 00:01 77 18 96 Nasal Cannula 3.0 32 07/31/19 00:00 97.5 71 16 114/58 (76) 96 07/31/19 00:00 70 07/30/19 23:40 82 17 100 Nasal Cannula 2.0 28 79 18 97 07/30/19 21:00 Room Air 2.0 Nasal Cannula 07/30/19 20:56 77 133/63 07/30/19 20:00 76 07/30/19 20:00 97.9 77 20 133/63 (86) 100 07/30/19 19:45 78 17 100 Nasal Cannula 2.0 28 77 18 97 07/30/19 19:45 97 Nasal Cannula 2.0 28 07/30/19 16:50 78 17 100 Nasal Cannula 2.0 28 75 18 99 07/30/19 16:00 81 07/30/19 16:00 97.2 72 20 138/71 (93) 98 07/30/19 12:55 141/73 07/30/19 12:00 97.5 75 20 141/73 (95) 95 07/30/19 12:00 75 07/30/19 11:56 74 20 100 Nasal Cannula 2.0 28 75 20 96 07/30/19 11:46 76 18 99 Nasal Cannula 2.0 28 72 18 97 07/30/19 08:47 70 117/61 07/30/19 08:07 Room Air 2.0 Nasal Cannula Intake and Output 07/30/19 07/31/19 19:00 07:00 Output Total 1400 ml Balance -1400 ml Output Urine Total 1400 ml Stool Total 0 ml # Voids 2 # Bowel Movements 1 Laboratory Tests Test 07/30/19 15:53 07/31/19 06:30 Stool Occult Blood Pending White Blood Count 5.9 K/UL (4.8-10.8) Red Blood Count 3.20 M/UL (4.70-6.10) L Hemoglobin 8.8 G/DL (14.2-18.0) L Hematocrit 27.0 % (42.0-52.0) L Mean Corpuscular Volume 84 FL (80-99) Mean Corpuscular Hemoglobin 27.4 PG (27.0-31.0) Mean Corpuscular Hemoglobin Concent 32.5 G/DL (32.0-36.0) Red Cell Distribution Width 15.0 % (11.6-14.8) H Platelet Count 181 K/UL (150-450) Mean Platelet Volume 7.1 FL (6.5-10.1) Neutrophils (%) (Auto) 70.6 % (45.0-75.0) Lymphocytes (%) (Auto) 16.5 % (20.0-45.0) L Monocytes (%) (Auto) 6.1 % (1.0-10.0) Eosinophils (%) (Auto) 6.1 % (0.0-3.0) H Basophils (%) (Auto) 0.8 % (0.0-2.0) Sodium Level 140 MMOL/L (136-145) Potassium Level 4.5 MMOL/L (3.5-5.1) Chloride Level 105 MMOL/L (98-107) Carbon Dioxide Level 27 MMOL/L (21-32) Anion Gap 8 mmol/L (5-15) Blood Urea Nitrogen 21 mg/dL (7-18) H Creatinine 0.7 MG/DL (0.55-1.30) Estimat Glomerular Filtration Rate > 60 mL/min (>60) Glucose Level 104 MG/DL (74-106) Calcium Level 8.7 MG/DL (8.5-10.1) Objective HEAD AND NECK: Mild JVD. LUNGS: Decreased breath sounds. CARDIOVASCULAR: IRRR . Pacer left subclavian no hematoma. No G/R/M ABDOMEN: Status post G-tube. EXTREMITIES: No pitting edema. Enio Santos MD Jul 31, 2019 08:08
[2019-07-31] MEDS: Miralax 17gm pkt GT SCH (08:59)
[2019-07-31] MEDS: Eliquis 2.5mg tablet ORAL SCH ×2 (08:59→17:28)
[2019-07-31] MEDS: Pantoprazole Inj IV SCH ×2 (08:59→21:08)
[2019-07-31] MEDS: Amiodarone 200mg tab ORAL SCH (08:59)
[2019-07-31] MEDS: Sennosides 8.6mg tab GT SCH (09:00)
[2019-07-31] MEDS: Docusate 100mg/10ml Liq NG SCH ×2 (09:00→18:00)
--- NOTE | 2019-07-31 09:06 | General Progress Note ---
Assessment/Plan Assessment/Plan: 1. History of dysphagia with G-tube. 2. Diabetes. 3. Parkinson disease. 4. History of atrial fibrillation with pacemaker placement in this admission. 5. Urethral obstruction requiring urethral stent placement in this admission. 6. anemia with stool ob positive stable H&H on ppi plan repeat CBC and stool ob. colonoscopy if drop in H&H and persistent stool ob positive GTF GT care Subjective ROS Limited/Unobtainable: No Allergies: Coded Allergies: PENICILLINS (Verified Allergy, Unknown, 07/04/19) Objective Last 24 Hour Vital Signs Date Time Temp Pulse Resp B/P (MAP) Pulse Ox O2 Delivery O2 Flow Rate FiO2 07/31/19 09:00 72 121/65 07/31/19 08:00 97.7 72 20 121/65 (83) 100 07/31/19 07:42 96 Nasal Cannula 2.0 28 07/31/19 07:42 69 18 99 Nasal Cannula 2.0 28 72 18 96 07/31/19 04:00 97.5 78 20 143/64 (90) 99 07/31/19 04:00 71 07/31/19 03:36 81 17 100 Nasal Cannula 2.0 28 82 18 98 07/31/19 00:01 77 18 96 Nasal Cannula 3.0 32 07/31/19 00:00 97.5 71 16 114/58 (76) 96 07/31/19 00:00 70 07/30/19 23:40 82 17 100 Nasal Cannula 2.0 28 79 18 97 07/30/19 21:00 Room Air 2.0 Nasal Cannula 07/30/19 20:56 77 133/63 07/30/19 20:00 76 07/30/19 20:00 97.9 77 20 133/63 (86) 100 07/30/19 19:45 78 17 100 Nasal Cannula 2.0 28 77 18 97 07/30/19 19:45 97 Nasal Cannula 2.0 28 07/30/19 16:50 78 17 100 Nasal Cannula 2.0 28 75 18 99 07/30/19 16:00 81 07/30/19 16:00 97.2 72 20 138/71 (93) 98 07/30/19 12:55 141/73 07/30/19 12:00 97.5 75 20 141/73 (95) 95 07/30/19 12:00 75 07/30/19 11:56 74 20 100 Nasal Cannula 2.0 28 75 20 96 07/30/19 11:46 76 18 99 Nasal Cannula 2.0 28 72 18 97 Intake and Output 07/30/19 07/31/19 19:00 07:00 Output Total 1400 ml Balance -1400 ml Output Urine Total 1400 ml Stool Total 0 ml # Voids 2 # Bowel Movements 1 Laboratory Tests 07/30/19 15:53: Stool Occult Blood [Pending] 07/31/19 06:30: White Blood Count 5.9, Red Blood Count 3.20L, Hemoglobin 8.8L, Hematocrit 27.0L , Mean Corpuscular Volume 84, Mean Corpuscular Hemoglobin 27.4, Mean Corpuscular Hemoglobin Concent 32.5, Red Cell Distribution Width 15.0H, Platelet Count 181, Mean Platelet Volume 7.1, Neutrophils (%) (Auto) 70.6, Lymphocytes (%) (Auto) 16.5L, Monocytes (%) (Auto) 6.1, Eosinophils (%) (Auto) 6.1H, Basophils (%) (Auto) 0.8, Sodium Level 140, Potassium Level 4.5, Chloride Level 105, Carbon Dioxide Level 27, Anion Gap 8, Blood Urea Nitrogen 21H, Creatinine 0.7, Estimat Glomerular Filtration Rate > 60, Glucose Level 104, Calcium Level 8.7 Height (Feet): 5 Height (Inches): 6.00 Weight (Pounds): 185 General Appearance: no apparent distress EENT: normal ENT inspection Neck: supple Cardiovascular: normal rate Respiratory/Chest: decreased breath sounds Abdomen: normal bowel sounds, non tender, soft Extremities: non-tender Delgado Small MD Jul 31, 2019 09:06
--- NOTE | 2019-07-31 09:57 | Infectious Diseases Prog Note ---
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 Multiple nonobstructive stones within the right kidney. Thickening of the wall the urinary bladder consistent with cystitis. Juan catheter in good position. 10 x 7 cm left inguinal hernia containing bowel. No evidence of obstruction.Trace left pleural effusion. Bilateral posterior basal atelectasis. Sepsis, Sp Probable UTI, sp rx Acute hypoxic respiratory failure, intubated 07/05; extubated 07/11 Aspiration pneumonia vs pneumonitis Gram positive bacteremia- contaminant -07/18 CXR: Mild pulmonary vascular congestion may be present. Correlate clinically.Basal atelectasis versus infiltrate. No change -07/15 CXR:Infiltrate and/or pleural effusion suspected at the left lung base. Mild pulmonary vascular congestion not excluded. Correlate clinically. -07/13 CXR: Improving pulmonary venous congestion with unchanged small left pleural effusion and slight worsening of left basilar infiltrate, indeterminate between atelectasis and pneumonia -07/11 u/a wbc 2-4, nit neg, leuk +3; ucx Neg Bcx Neg -07/06 Bcx Neg -07/05 CXR:Mild CHF -u/a wbc 5-10, nit neg, leuk +2; ucx Neg -Bcx 06/08 dipteriods -sp cx usual resp rupert -CXR: No acute process -influenza sc neg -v. duplex: no DVT -V/q scan:Findings are deemed low probability for pulmonary embolus Fever; low grade, recurrent- SP Mild leukocytosis,recurrent- SP CARA;SP Dm2 dysphagia s/p GT hx of PNA parkinson disease HTN bed bound [facility] resident Plan: - Monitor off abx -07/27/19 SP Cefoxitin #4 ( Peripoerative) -07/17 SP Ceftriaxone #3 -07/15 SP Flagyl # 11, Cefepime #12 -07/09 SP IV Vancomycin #5 -07/04 SP Levaquin x1 -Monitor CBC/CMP, temperatures -aspiration precautions -GT care -Cards, Uro, nephro f/u -Cdiff if diarrhea Thank you for this consultation. Will continue to follow along with you. Subjective Allergies: Coded Allergies: PENICILLINS (Verified Allergy, Unknown, 07/04/19) Subjective afebrile comfortable Objective Vital Signs Last 24 Hour Vital Signs Date Time Temp Pulse Resp B/P (MAP) Pulse Ox O2 Delivery O2 Flow Rate FiO2 07/31/19 09:00 72 121/65 07/31/19 09:00 Room Air 2.0 Nasal Cannula 07/31/19 08:00 73 07/31/19 08:00 97.7 72 20 121/65 (83) 100 07/31/19 07:42 96 Nasal Cannula 2.0 28 07/31/19 07:42 69 18 99 Nasal Cannula 2.0 28 72 18 96 07/31/19 04:00 97.5 78 20 143/64 (90) 99 07/31/19 04:00 71 07/31/19 03:36 81 17 100 Nasal Cannula 2.0 28 82 18 98 07/31/19 00:01 77 18 96 Nasal Cannula 3.0 32 07/31/19 00:00 97.5 71 16 114/58 (76) 96 07/31/19 00:00 70 07/30/19 23:40 82 17 100 Nasal Cannula 2.0 28 79 18 97 07/30/19 21:00 Room Air 2.0 Nasal Cannula 07/30/19 20:56 77 133/63 07/30/19 20:00 76 07/30/19 20:00 97.9 77 20 133/63 (86) 100 07/30/19 19:45 78 17 100 Nasal Cannula 2.0 28 77 18 97 07/30/19 19:45 97 Nasal Cannula 2.0 28 07/30/19 16:50 78 17 100 Nasal Cannula 2.0 28 75 18 99 07/30/19 16:00 81 07/30/19 16:00 97.2 72 20 138/71 (93) 98 07/30/19 12:55 141/73 07/30/19 12:00 97.5 75 20 141/73 (95) 95 07/30/19 12:00 75 07/30/19 11:56 74 20 100 Nasal Cannula 2.0 28 75 20 96 07/30/19 11:46 76 18 99 Nasal Cannula 2.0 28 72 18 97 Height (Feet): 5 Height (Inches): 6.00 Weight (Pounds): 185 HEENT: anicteric Respiratory/Chest: normal breath sounds Cardiovascular: normal rate Abdomen: no organomegaly Laboratory Tests Test 07/30/19 15:53 07/31/19 06:30 Stool Occult Blood Pending White Blood Count 5.9 K/UL (4.8-10.8) Red Blood Count 3.20 M/UL (4.70-6.10) L Hemoglobin 8.8 G/DL (14.2-18.0) L Hematocrit 27.0 % (42.0-52.0) L Mean Corpuscular Volume 84 FL (80-99) Mean Corpuscular Hemoglobin 27.4 PG (27.0-31.0) Mean Corpuscular Hemoglobin Concent 32.5 G/DL (32.0-36.0) Red Cell Distribution Width 15.0 % (11.6-14.8) H Platelet Count 181 K/UL (150-450) Mean Platelet Volume 7.1 FL (6.5-10.1) Neutrophils (%) (Auto) 70.6 % (45.0-75.0) Lymphocytes (%) (Auto) 16.5 % (20.0-45.0) L Monocytes (%) (Auto) 6.1 % (1.0-10.0) Eosinophils (%) (Auto) 6.1 % (0.0-3.0) H Basophils (%) (Auto) 0.8 % (0.0-2.0) Sodium Level 140 MMOL/L (136-145) Potassium Level 4.5 MMOL/L (3.5-5.1) Chloride Level 105 MMOL/L (98-107) Carbon Dioxide Level 27 MMOL/L (21-32) Anion Gap 8 mmol/L (5-15) Blood Urea Nitrogen 21 mg/dL (7-18) H Creatinine 0.7 MG/DL (0.55-1.30) Estimat Glomerular Filtration Rate > 60 mL/min (>60) Glucose Level 104 MG/DL (74-106) Calcium Level 8.7 MG/DL (8.5-10.1) Current Medications Medications (Trade) Dose Ordered Sig/Genoveva Route PRN Reason Start Time Stop Time Status Last Admin Dose Admin Acetaminophen (Tylenol) 650 mg Q6H PRN GT Mild Pain/Temp > 100.5 07/25/19 16:15 08/24/19 16:14 Acetaminophen (Tylenol) 650 mg Q6H PRN GT Headache 07/26/19 13:00 08/25/19 12:59 Acetaminophen/ Codeine Phosphate (Tylenol #3) 1 tab Q4H PRN GT Moderate Pain (Pain Scale 4-6) 07/26/19 13:00 08/02/19 12:59 Albuterol/ Ipratropium (Albuterol/ Ipratropium) 3 ml Q4H PRN HHN Shortness of Breath 07/26/19 21:30 07/31/19 21:29 Albuterol/ Ipratropium (Albuterol/ Ipratropium) 3 ml Q4HRT HHN 07/26/19 23:00 07/31/19 22:59 07/31/19 07:32 Amiodarone HCl (Cordarone) 200 mg DAILY ORAL 07/29/19 09:00 08/28/19 08:59 07/31/19 08:59 Apixaban (Eliquis) 2.5 mg BID ORAL 07/30/19 18:00 08/29/19 17:59 07/31/19 08:59 Dextrose (Dextrose 50%) 25 ml Q30M PRN IV Hypoglycemia 07/19/19 06:30 08/11/19 11:59 Dextrose (Dextrose 50%) 50 ml Q30M PRN IV Hypoglycemia 07/19/19 06:30 08/11/19 11:59 Docusate Sodium (Colace) 100 mg TWICE A DAY NG 07/30/19 18:00 08/29/19 17:59 Finasteride (Proscar) 5 mg DAILY ORAL 07/19/19 09:00 08/13/19 08:59 07/31/19 08:59 Hydralazine HCl (Apresoline) 10 mg Q4H PRN IV bp over 160 syst 07/19/19 06:30 08/05/19 06:29 Insulin Aspart (NovoLOG) Q6HR SUBQ 07/19/19 12:00 08/11/19 16:29 07/29/19 17:18 Metoprolol Tartrate (Lopressor) 25 mg Q12HR ORAL 07/27/19 21:00 08/26/19 20:59 07/30/19 20:56 Morphine Sulfate (Morphine Sulfate) 2 mg Q1H PRN IVP Severe Pain (Pain Scale 7-10) 07/26/19 13:00 08/02/19 12:59 Nitroglycerin (Ntg) 1 patch Q24H TDERMAL 07/19/19 12:30 08/05/19 12:29 07/30/19 12:55 Ondansetron HCl (Zofran) 4 mg Q6H PRN IVP Nausea & Vomiting 07/26/19 13:00 08/25/19 12:59 Pantoprazole (Protonix) 40 mg Q12HR IV 07/19/19 09:00 08/04/19 11:14 07/31/19 08:59 Polyethylene Glycol (Miralax) 17 gm DAILY GT 07/26/19 09:00 08/24/19 11:59 07/29/19 08:44 Potassium Chloride (K-Dur) 20 meq DAILY GT 07/22/19 09:00 08/21/19 08:59 07/31/19 08:59 Promethazine HCl/ Codeine (Phenergan with Codeine) 5 ml Q4H PRN GT For Cough 07/25/19 16:00 08/03/19 06:29 Sennosides (Senokot) 8.6 mg DAILY GT 07/26/19 09:00 08/24/19 11:59 07/30/19 08:45 Sodium Chloride 1,000 ml @ 75 mls/hr [id number] IV 07/22/19 16:41 08/21/19 16:40 07/31/19 00:41 Tamsulosin HCl (Flomax) 0.4 mg BEDTIME ORAL 07/19/19 21:00 08/12/19 20:59 07/30/19 20:55 William Ely MD Jul 31, 2019 09:57
[2019-07-31 12:00] VITALS: BP 123/52
--- NOTE | 2019-07-31 12:24 | NUR ---
CASE MANAGEMENT:REVIEW 07/31/19 SI: SEPSIS. RESP FAILURE. S/P CARDIAC ARREST S/P LITHOTRIPSY WITH STENT PLACEMENT S/P PACEMAKER 97.5 78 20 143/64 99% ON 2L NC FiO2 28 H/ 8.8/27.0 BUN 21 (2ND)- OB STOOL-NEGATIVE IS: IV NS @75ML/HR AMIODARONE PO QD IV PROTONIX BID K-DUR GT QD FLOMAX PO QHS NTG PATCH Q24 PROSCAR PO QD SENOKOT GT QD ALBUTEROL HHN Q4HRS RTC : 2E TELEMETRY UNIT DCP: FROM [facility]: PATIENT SAUCEDO DC'D PATIENT UNABLE TO VOID BLADDERSCAN PERFORMED- DC HELD UNTIL FURTHER EVAL REPEAT OB STOOL -PENDING H/H SLOWLY DECLINING
--- NOTE | 2019-07-31 12:28 | Pulmonology Progress Note ---
Assessment/Plan Problems: (1) Occult blood positive stool (2) Cardiac arrest with successful resuscitation (3) Respiratory failure with hypoxia (4) Sepsis Assessment & Plan: resolved, off abx (5) Anemia (6) CARA (acute kidney injury) (7) Hypertensive heart disease (8) BPH (benign prostatic hyperplasia) (9) DVT (deep venous thrombosis) (10) Parkinson disease (11) Diabetes mellitus (12) Feeding by G-tube Assessment/Plan H/H slowly trending down. OB was positive, repeat OB is negative GI consult reviewed, s/p lithotripsy and uretral stent placement pacemaker done on monday wbc wnl, afebrile bun/creatinine better no new cultures tolerating diet aspiration precaution titrate fio2 to sat of 92% sliding scale\ Subjective ROS Limited/Unobtainable: No Constitutional: Reports: no symptoms HEENT: Repors: no symptoms Respiratory: Reports: no symptoms Allergies: Coded Allergies: PENICILLINS (Verified Allergy, Unknown, 07/04/19) Objective Last 24 Hour Vital Signs Date Time Temp Pulse Resp B/P (MAP) Pulse Ox O2 Delivery O2 Flow Rate FiO2 07/31/19 11:17 70 18 99 Nasal Cannula 2.0 28 70 18 97 07/31/19 09:00 72 121/65 07/31/19 09:00 Room Air 2.0 Nasal Cannula 07/31/19 08:00 73 07/31/19 08:00 97.7 72 20 121/65 (83) 100 07/31/19 07:42 96 Nasal Cannula 2.0 28 07/31/19 07:42 69 18 99 Nasal Cannula 2.0 28 72 18 96 07/31/19 04:00 97.5 78 20 143/64 (90) 99 07/31/19 04:00 71 07/31/19 03:36 81 17 100 Nasal Cannula 2.0 28 82 18 98 07/31/19 00:01 77 18 96 Nasal Cannula 3.0 32 07/31/19 00:00 97.5 71 16 114/58 (76) 96 07/31/19 00:00 70 07/30/19 23:40 82 17 100 Nasal Cannula 2.0 28 79 18 97 07/30/19 21:00 Room Air 2.0 Nasal Cannula 07/30/19 20:56 77 133/63 07/30/19 20:00 76 07/30/19 20:00 97.9 77 20 133/63 (86) 100 07/30/19 19:45 78 17 100 Nasal Cannula 2.0 28 77 18 97 07/30/19 19:45 97 Nasal Cannula 2.0 28 07/30/19 16:50 78 17 100 Nasal Cannula 2.0 28 75 18 99 07/30/19 16:00 81 07/30/19 16:00 97.2 72 20 138/71 (93) 98 07/30/19 12:55 141/73 Intake and Output 07/30/19 07/31/19 19:00 07:00 Output Total 1400 ml Balance -1400 ml Output Urine Total 1400 ml Stool Total 0 ml # Voids 2 # Bowel Movements 1 Objective doing better General Appearance: WD/WN, cachetic HEENT: atraumatic, anicteric Respiratory/Chest: chest wall non-tender, lungs clear Cardiovascular: normal peripheral pulses, normal rate Abdomen: normal bowel sounds, soft, non tender Neurologic/Psychiatric: refrigeration person II-XII grossly normal, no motor/sensory deficits, normal mood/affect Musculoskeletal: normal muscle bulk Laboratory Tests 07/30/19 15:53: Stool Occult Blood Negative 07/31/19 06:30: White Blood Count 5.9, Red Blood Count 3.20L, Hemoglobin 8.8L, Hematocrit 27.0L , Mean Corpuscular Volume 84, Mean Corpuscular Hemoglobin 27.4, Mean Corpuscular Hemoglobin Concent 32.5, Red Cell Distribution Width 15.0H, Platelet Count 181, Mean Platelet Volume 7.1, Neutrophils (%) (Auto) 70.6, Lymphocytes (%) (Auto) 16.5L, Monocytes (%) (Auto) 6.1, Eosinophils (%) (Auto) 6.1H, Basophils (%) (Auto) 0.8, Sodium Level 140, Potassium Level 4.5, Chloride Level 105, Carbon Dioxide Level 27, Anion Gap 8, Blood Urea Nitrogen 21H, Creatinine 0.7, Estimat Glomerular Filtration Rate > 60, Glucose Level 104, Calcium Level 8.7 Current Medications Medications (Trade) Dose Ordered Sig/Genoveva Route PRN Reason Start Time Stop Time Status Last Admin Dose Admin Acetaminophen (Tylenol) 650 mg Q6H PRN GT Mild Pain/Temp > 100.5 07/25/19 16:15 08/24/19 16:14 Acetaminophen (Tylenol) 650 mg Q6H PRN GT Headache 07/26/19 13:00 08/25/19 12:59 Acetaminophen/ Codeine Phosphate (Tylenol #3) 1 tab Q4H PRN GT Moderate Pain (Pain Scale 4-6) 07/26/19 13:00 08/02/19 12:59 Albuterol/ Ipratropium (Albuterol/ Ipratropium) 3 ml Q4H PRN HHN Shortness of Breath 07/26/19 21:30 07/31/19 21:29 Albuterol/ Ipratropium (Albuterol/ Ipratropium) 3 ml Q4HRT HHN 07/26/19 23:00 07/31/19 22:59 07/31/19 11:07 Amiodarone HCl (Cordarone) 200 mg DAILY ORAL 07/29/19 09:00 08/28/19 08:59 07/31/19 08:59 Apixaban (Eliquis) 2.5 mg BID ORAL 07/30/19 18:00 08/29/19 17:59 07/31/19 08:59 Dextrose (Dextrose 50%) 25 ml Q30M PRN IV Hypoglycemia 07/19/19 06:30 08/11/19 11:59 Dextrose (Dextrose 50%) 50 ml Q30M PRN IV Hypoglycemia 07/19/19 06:30 08/11/19 11:59 Docusate Sodium (Colace) 100 mg TWICE A DAY NG 07/30/19 18:00 08/29/19 17:59 Finasteride (Proscar) 5 mg DAILY ORAL 07/19/19 09:00 08/13/19 08:59 07/31/19 08:59 Hydralazine HCl (Apresoline) 10 mg Q4H PRN IV bp over 160 syst 07/19/19 06:30 08/05/19 06:29 Insulin Aspart (NovoLOG) Q6HR SUBQ 07/19/19 12:00 08/11/19 16:29 07/29/19 17:18 Metoprolol Tartrate (Lopressor) 25 mg Q12HR ORAL 07/27/19 21:00 08/26/19 20:59 07/30/19 20:56 Morphine Sulfate (Morphine Sulfate) 2 mg Q1H PRN IVP Severe Pain (Pain Scale 7-10) 07/26/19 13:00 08/02/19 12:59 Nitroglycerin (Ntg) 1 patch Q24H TDERMAL 07/19/19 12:30 08/05/19 12:29 07/30/19 12:55 Ondansetron HCl (Zofran) 4 mg Q6H PRN IVP Nausea & Vomiting 07/26/19 13:00 08/25/19 12:59 Pantoprazole (Protonix) 40 mg Q12HR IV 07/19/19 09:00 08/04/19 11:14 07/31/19 08:59 Polyethylene Glycol (Miralax) 17 gm DAILY GT 07/26/19 09:00 08/24/19 11:59 07/29/19 08:44 Potassium Chloride (K-Dur) 20 meq DAILY GT 07/22/19 09:00 08/21/19 08:59 07/31/19 08:59 Promethazine HCl/ Codeine (Phenergan with Codeine) 5 ml Q4H PRN GT For Cough 07/25/19 16:00 08/03/19 06:29 Sennosides (Senokot) 8.6 mg DAILY GT 07/26/19 09:00 08/24/19 11:59 07/30/19 08:45 Sodium Chloride 1,000 ml @ 75 mls/hr [id number] IV 07/22/19 16:41 08/21/19 16:40 07/31/19 09:55 Tamsulosin HCl (Flomax) 0.4 mg BEDTIME ORAL 07/19/19 21:00 08/12/19 20:59 07/30/19 20:55 Kathryn Lopez MD Jul 31, 2019 12:28
[2019-07-31] MEDS: Nitroglycerin Patch 0.4mg TDERMAL SCH (12:30)
--- NOTE | 2019-07-31 12:44 | Internal Med Progress Note ---
Subjective Date of Service: Jul 31, 2019 Physician Name Shukri Glover Attending Physician Rayshawn Woods MD Current Medications Medications (Trade) Dose Ordered Sig/Genoveva Route PRN Reason Start Time Stop Time Status Last Admin Dose Admin Acetaminophen (Tylenol) 650 mg Q6H PRN GT Mild Pain/Temp > 100.5 07/25/19 16:15 08/24/19 16:14 Acetaminophen (Tylenol) 650 mg Q6H PRN GT Headache 07/26/19 13:00 08/25/19 12:59 Acetaminophen/ Codeine Phosphate (Tylenol #3) 1 tab Q4H PRN GT Moderate Pain (Pain Scale 4-6) 07/26/19 13:00 08/02/19 12:59 Albuterol/ Ipratropium (Albuterol/ Ipratropium) 3 ml Q4H PRN HHN Shortness of Breath 07/26/19 21:30 07/31/19 21:29 Albuterol/ Ipratropium (Albuterol/ Ipratropium) 3 ml Q4HRT HHN 07/26/19 23:00 07/31/19 22:59 07/31/19 11:07 Amiodarone HCl (Cordarone) 200 mg DAILY ORAL 07/29/19 09:00 08/28/19 08:59 07/31/19 08:59 Apixaban (Eliquis) 2.5 mg BID ORAL 07/30/19 18:00 08/29/19 17:59 07/31/19 08:59 Dextrose (Dextrose 50%) 25 ml Q30M PRN IV Hypoglycemia 07/19/19 06:30 08/11/19 11:59 Dextrose (Dextrose 50%) 50 ml Q30M PRN IV Hypoglycemia 07/19/19 06:30 08/11/19 11:59 Docusate Sodium (Colace) 100 mg TWICE A DAY NG 07/30/19 18:00 08/29/19 17:59 Finasteride (Proscar) 5 mg DAILY ORAL 07/19/19 09:00 08/13/19 08:59 07/31/19 08:59 Hydralazine HCl (Apresoline) 10 mg Q4H PRN IV bp over 160 syst 07/19/19 06:30 08/05/19 06:29 Insulin Aspart (NovoLOG) Q6HR SUBQ 07/19/19 12:00 08/11/19 16:29 07/29/19 17:18 Metoprolol Tartrate (Lopressor) 25 mg Q12HR ORAL 07/27/19 21:00 08/26/19 20:59 07/30/19 20:56 Morphine Sulfate (Morphine Sulfate) 2 mg Q1H PRN IVP Severe Pain (Pain Scale 7-10) 07/26/19 13:00 08/02/19 12:59 Nitroglycerin (Ntg) 1 patch Q24H TDERMAL 07/19/19 12:30 08/05/19 12:29 07/30/19 12:55 Ondansetron HCl (Zofran) 4 mg Q6H PRN IVP Nausea & Vomiting 07/26/19 13:00 08/25/19 12:59 Pantoprazole (Protonix) 40 mg Q12HR IV 07/19/19 09:00 08/04/19 11:14 07/31/19 08:59 Polyethylene Glycol (Miralax) 17 gm DAILY GT 07/26/19 09:00 08/24/19 11:59 07/29/19 08:44 Potassium Chloride (K-Dur) 20 meq DAILY GT 07/22/19 09:00 08/21/19 08:59 07/31/19 08:59 Promethazine HCl/ Codeine (Phenergan with Codeine) 5 ml Q4H PRN GT For Cough 07/25/19 16:00 08/03/19 06:29 Sennosides (Senokot) 8.6 mg DAILY GT 07/26/19 09:00 08/24/19 11:59 07/30/19 08:45 Sodium Chloride 1,000 ml @ 75 mls/hr [id number] IV 07/22/19 16:41 08/21/19 16:40 07/31/19 09:55 Tamsulosin HCl (Flomax) 0.4 mg BEDTIME ORAL 07/19/19 21:00 08/12/19 20:59 07/30/19 20:55 Allergies: Coded Allergies: PENICILLINS (Verified Allergy, Unknown, 07/04/19) ROS Limited/Unobtainable: Yes Subjective 83 YO M admitted with dyspnea, now respiratory failure. Cover for Int Med-Dr Chuck. Extubated 07/11/19. S/P cystoscopy/left ureteroscopy/stent/right ESWL 07/24/19. S/P Pacemaker implantation on Monday07/26/19. Objective Last Vital Signs Date Time Temp Pulse Resp B/P (MAP) Pulse Ox O2 Delivery O2 Flow Rate FiO2 07/31/19 11:17 70 18 99 Nasal Cannula 2.0 28 70 18 97 07/31/19 09:00 121/65 07/31/19 08:00 97.7 Laboratory Tests Test 07/30/19 15:53 07/31/19 06:30 Stool Occult Blood Negative (NEGATIVE) White Blood Count 5.9 K/UL (4.8-10.8) Red Blood Count 3.20 M/UL (4.70-6.10) L Hemoglobin 8.8 G/DL (14.2-18.0) L Hematocrit 27.0 % (42.0-52.0) L Mean Corpuscular Volume 84 FL (80-99) Mean Corpuscular Hemoglobin 27.4 PG (27.0-31.0) Mean Corpuscular Hemoglobin Concent 32.5 G/DL (32.0-36.0) Red Cell Distribution Width 15.0 % (11.6-14.8) H Platelet Count 181 K/UL (150-450) Mean Platelet Volume 7.1 FL (6.5-10.1) Neutrophils (%) (Auto) 70.6 % (45.0-75.0) Lymphocytes (%) (Auto) 16.5 % (20.0-45.0) L Monocytes (%) (Auto) 6.1 % (1.0-10.0) Eosinophils (%) (Auto) 6.1 % (0.0-3.0) H Basophils (%) (Auto) 0.8 % (0.0-2.0) Sodium Level 140 MMOL/L (136-145) Potassium Level 4.5 MMOL/L (3.5-5.1) Chloride Level 105 MMOL/L (98-107) Carbon Dioxide Level 27 MMOL/L (21-32) Anion Gap 8 mmol/L (5-15) Blood Urea Nitrogen 21 mg/dL (7-18) H Creatinine 0.7 MG/DL (0.55-1.30) Estimat Glomerular Filtration Rate > 60 mL/min (>60) Glucose Level 104 MG/DL (74-106) Calcium Level 8.7 MG/DL (8.5-10.1) Intake and Output 07/30/19 07/31/19 19:00 07:00 Output Total 1400 ml Balance -1400 ml Output Urine Total 1400 ml Stool Total 0 ml # Voids 2 # Bowel Movements 1 Objective PHYSICAL EXAMINATION: GENERAL: The patient is a well-developed and well-nourished male, in moderate respiratory distress. HEENT: Eyes, pupils are equal and responsive to light and accommodation. Extraocular movements are intact. NECK: Supple without lymphadenopathy. CHEST: nasal canula; Coarse breath sounds bilaterally with expiratory wheezes. Otherwise, without crackles. ABDOMINAL: Soft, nontender, and nondistended. Positive bowel sounds. No evidence of hepatosplenomegaly. Currently, no rebound or guarding noted. CARDIOVASCULAR: Tachycardic. Regular rhythm. S1 and S2 are normal without murmurs, rubs, or gallops. GENITOURINARY: Deferred. NEUROLOGICAL: Cranial nerves II to XII are grossly intact without focal deficits. EXTREMITIES: Negative for clubbing, cyanosis, or edema. Assessment/Plan Assessment/Plan ASSESSMENT: This is an 83-year-old male. 1. Dyspnea. 2. Respiratory distress. 3. Diabetes type 2. 4. Parkinson disease. 5. Hypercholesterolemia. 6. Dilated cardiomyopathy. 7. Dysphagia. 8. Benign prostatic hypertrophy. 9. 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 NSTEMI TREATMENT: 1. Dyspnea/respiratory distress. A Pulmonary consultation has been obtained with Dr. Kathryn Lopez. The patient is currently extubated. ABX=Ceftriaxone. We will follow recommendations of Pulmonary. 2. Diabetes type 2. 3. Hypercholesterolemia. 4. Dilated cardiomyopathy. 5. Dysphagia. The patient is status post PEG placement. 6. Hypertensive heart disease. 7. Benign prostatic hypertrophy. Failed voiding trial 8. ID=DR. Page 9. Urology = Dr. Callejas; S/P for cystoscopy/left ureteroscopy/stent/right ESWL 07/24/19 10. cardiology = Dr Santos 11. S/P Pacemaker implantation on Mon07/26/19 12. Discharge planning: detention fac Shukri Glover MD Jul 31, 2019 12:44
--- NOTE | 2019-07-31 12:46 | Urology Progress Note ---
Assessment/Plan Assessment/Plan: 1. Left-sided hydronephrosis, poss chronic. 2. Proteinuria. 3. Hematuria. 4. Pyuria. 5. Urinary retention. 6. BPH history. 7. Rule out neurogenic bladder. 8. Mild acute kidney injury, improved. 9. Left ureteral calculus. 10. Right renal calculi. 11. Cystitis. 12. Left inguinal hernia. 13. POD # 7, left ureteroscopy/laser litho/stent, right ESWL monitor clinically failed voiding trial yest nixon back indwelling, replaced 07/30 hand irrigate PRN cath secured to pt's leg s/p abx prophylaxis monitor renal fxn cont flomax and proscar add urecholine repeat voiding trial later Subjective Allergies: Coded Allergies: PENICILLINS (Verified Allergy, Unknown, 07/04/19) Subjective all noted, looks comfortable, failed voiding trial yest and nixon replaced last night Objective Last 24 Hour Vital Signs Date Time Temp Pulse Resp B/P (MAP) Pulse Ox O2 Delivery O2 Flow Rate FiO2 07/31/19 11:17 70 18 99 Nasal Cannula 2.0 28 70 18 97 07/31/19 09:00 72 121/65 07/31/19 09:00 Room Air 2.0 Nasal Cannula 07/31/19 08:00 73 07/31/19 08:00 97.7 72 20 121/65 (83) 100 07/31/19 07:42 96 Nasal Cannula 2.0 28 07/31/19 07:42 69 18 99 Nasal Cannula 2.0 28 72 18 96 07/31/19 04:00 97.5 78 20 143/64 (90) 99 07/31/19 04:00 71 07/31/19 03:36 81 17 100 Nasal Cannula 2.0 28 82 18 98 07/31/19 00:01 77 18 96 Nasal Cannula 3.0 32 07/31/19 00:00 97.5 71 16 114/58 (76) 96 07/31/19 00:00 70 07/30/19 23:40 82 17 100 Nasal Cannula 2.0 28 79 18 97 07/30/19 21:00 Room Air 2.0 Nasal Cannula 07/30/19 20:56 77 133/63 07/30/19 20:00 76 07/30/19 20:00 97.9 77 20 133/63 (86) 100 07/30/19 19:45 78 17 100 Nasal Cannula 2.0 28 77 18 97 07/30/19 19:45 97 Nasal Cannula 2.0 28 07/30/19 16:50 78 17 100 Nasal Cannula 2.0 28 75 18 99 07/30/19 16:00 81 07/30/19 16:00 97.2 72 20 138/71 (93) 98 07/30/19 12:55 141/73 Intake and Output 07/30/19 07/31/19 19:00 07:00 Output Total 1400 ml Balance -1400 ml Output Urine Total 1400 ml Stool Total 0 ml # Voids 2 # Bowel Movements 1 Microbiology Date/Time Source Procedure Growth Status 07/11/19 12:00 Blood Blood Culture - Final NO GROWTH AFTER 5 DAYS Complete 07/04/19 10:15 Sputum Gram Stain - Final Complete 07/04/19 10:15 Sputum Culture - Final Nicolle Albicans Usual Respiratory Valrey Complete 07/11/19 21:20 Urine,Clean Catch Urine Culture - Final NO GROWTH AFTER 48 HOURS Complete 07/04/19 00:43 Rectum - Final NO CARBAPENEM-RESISTANT ENTEROBACTERI... Complete Current Medications Medications (Trade) Dose Ordered Sig/Genoveva Route PRN Reason Start Time Stop Time Status Last Admin Dose Admin Acetaminophen (Tylenol) 650 mg Q6H PRN GT Mild Pain/Temp > 100.5 07/25/19 16:15 08/24/19 16:14 Acetaminophen (Tylenol) 650 mg Q6H PRN GT Headache 07/26/19 13:00 08/25/19 12:59 Acetaminophen/ Codeine Phosphate (Tylenol #3) 1 tab Q4H PRN GT Moderate Pain (Pain Scale 4-6) 07/26/19 13:00 08/02/19 12:59 Albuterol/ Ipratropium (Albuterol/ Ipratropium) 3 ml Q4H PRN HHN Shortness of Breath 07/26/19 21:30 07/31/19 21:29 Albuterol/ Ipratropium (Albuterol/ Ipratropium) 3 ml Q4HRT HHN 07/26/19 23:00 07/31/19 22:59 07/31/19 11:07 Amiodarone HCl (Cordarone) 200 mg DAILY ORAL 07/29/19 09:00 08/28/19 08:59 07/31/19 08:59 Apixaban (Eliquis) 2.5 mg BID ORAL 07/30/19 18:00 08/29/19 17:59 07/31/19 08:59 Dextrose (Dextrose 50%) 25 ml Q30M PRN IV Hypoglycemia 07/19/19 06:30 08/11/19 11:59 Dextrose (Dextrose 50%) 50 ml Q30M PRN IV Hypoglycemia 07/19/19 06:30 08/11/19 11:59 Docusate Sodium (Colace) 100 mg TWICE A DAY NG 07/30/19 18:00 08/29/19 17:59 Finasteride (Proscar) 5 mg DAILY ORAL 07/19/19 09:00 08/13/19 08:59 07/31/19 08:59 Hydralazine HCl (Apresoline) 10 mg Q4H PRN IV bp over 160 syst 07/19/19 06:30 08/05/19 06:29 Insulin Aspart (NovoLOG) Q6HR SUBQ 07/19/19 12:00 08/11/19 16:29 07/29/19 17:18 Metoprolol Tartrate (Lopressor) 25 mg Q12HR ORAL 07/27/19 21:00 08/26/19 20:59 07/30/19 20:56 Morphine Sulfate (Morphine Sulfate) 2 mg Q1H PRN IVP Severe Pain (Pain Scale 7-10) 07/26/19 13:00 08/02/19 12:59 Nitroglycerin (Ntg) 1 patch Q24H TDERMAL 07/19/19 12:30 08/05/19 12:29 07/30/19 12:55 Ondansetron HCl (Zofran) 4 mg Q6H PRN IVP Nausea & Vomiting 07/26/19 13:00 08/25/19 12:59 Pantoprazole (Protonix) 40 mg Q12HR IV 07/19/19 09:00 08/04/19 11:14 07/31/19 08:59 Polyethylene Glycol (Miralax) 17 gm DAILY GT 07/26/19 09:00 08/24/19 11:59 07/29/19 08:44 Potassium Chloride (K-Dur) 20 meq DAILY GT 07/22/19 09:00 08/21/19 08:59 07/31/19 08:59 Promethazine HCl/ Codeine (Phenergan with Codeine) 5 ml Q4H PRN GT For Cough 07/25/19 16:00 08/03/19 06:29 Sennosides (Senokot) 8.6 mg DAILY GT 07/26/19 09:00 08/24/19 11:59 07/30/19 08:45 Sodium Chloride 1,000 ml @ 75 mls/hr [id number] IV 07/22/19 16:41 08/21/19 16:40 07/31/19 09:55 Tamsulosin HCl (Flomax) 0.4 mg BEDTIME ORAL 07/19/19 21:00 08/12/19 20:59 07/30/19 20:55 Laboratory Tests 07/30/19 15:53: Stool Occult Blood Negative 07/31/19 06:30: White Blood Count 5.9, Red Blood Count 3.20L, Hemoglobin 8.8L, Hematocrit 27.0L , Mean Corpuscular Volume 84, Mean Corpuscular Hemoglobin 27.4, Mean Corpuscular Hemoglobin Concent 32.5, Red Cell Distribution Width 15.0H, Platelet Count 181, Mean Platelet Volume 7.1, Neutrophils (%) (Auto) 70.6, Lymphocytes (%) (Auto) 16.5L, Monocytes (%) (Auto) 6.1, Eosinophils (%) (Auto) 6.1H, Basophils (%) (Auto) 0.8, Sodium Level 140, Potassium Level 4.5, Chloride Level 105, Carbon Dioxide Level 27, Anion Gap 8, Blood Urea Nitrogen 21H, Creatinine 0.7, Estimat Glomerular Filtration Rate > 60, Glucose Level 104, Calcium Level 8.7 Height (Feet): 5 Height (Inches): 6.00 Weight (Pounds): 185 Objective exam stable nixon indwelling urine yellow/kristen CT A/P (07/12) noted, KUB noted Clayton Callejas MD Jul 31, 2019 12:46
--- NOTE | 2019-07-31 13:00 | Nephrology Progress Note ---
Assessment/Plan Problem List: (1) RIA (acute kidney injury) (2) Cardiac arrest with successful resuscitation (3) Respiratory failure with hypoxia (4) Hydronephrosis Assessment patient have Ria due to Low BP and s/p arrest elevated liver enzymes for same reason others: 1. Acute hypoxemic respiratory failure. 2. Hypotension possible sepsis. 3. Diabetes type 2. 4. Parkinson disease. 5. Hypercholesterolemia. 6. EjFx 65% reported 7. Dysphagia. 8. Benign prostatic hypertrophy. Plan s/p Cr 1.6 now wnl mag supplement Extubated 2/ Nitro- Phos , K , Mag supplement as needed keep BP above 100 syst Pulm support monitor renal parameters discussed with RN VALENTINA: Moderate left hydronephrosis. Juan catheter. Echogenic right kidney. Suspected medical renal disease. CXR 07/15 IMPRESSION: Infiltrate and/or pleural effusion suspected at the left lung base. Mild pulmonary vascular congestion not excluded. Correlate clinically. Subjective ROS Limited/Unobtainable: No Constitutional: Reports: malaise Objective Objective Last 24 Hour Vital Signs Date Time Temp Pulse Resp B/P (MAP) Pulse Ox O2 Delivery O2 Flow Rate FiO2 07/31/19 11:17 70 18 99 Nasal Cannula 2.0 28 70 18 97 07/31/19 09:00 72 121/65 07/31/19 09:00 Room Air 2.0 Nasal Cannula 07/31/19 08:00 73 07/31/19 08:00 97.7 72 20 121/65 (83) 100 07/31/19 07:42 96 Nasal Cannula 2.0 28 07/31/19 07:42 69 18 99 Nasal Cannula 2.0 28 72 18 96 07/31/19 04:00 97.5 78 20 143/64 (90) 99 07/31/19 04:00 71 07/31/19 03:36 81 17 100 Nasal Cannula 2.0 28 82 18 98 07/31/19 00:01 77 18 96 Nasal Cannula 3.0 32 07/31/19 00:00 97.5 71 16 114/58 (76) 96 07/31/19 00:00 70 07/30/19 23:40 82 17 100 Nasal Cannula 2.0 28 79 18 97 07/30/19 21:00 Room Air 2.0 Nasal Cannula 07/30/19 20:56 77 133/63 07/30/19 20:00 76 2/25/20 20:00 97.9 77 20 133/63 (86) 100 07/30/19 19:45 78 17 100 Nasal Cannula 2.0 28 77 18 97 07/30/19 19:45 97 Nasal Cannula 2.0 28 07/30/19 16:50 78 17 100 Nasal Cannula 2.0 28 75 18 99 07/30/19 16:00 81 07/30/19 16:00 97.2 72 20 138/71 (93) 98 Intake and Output 07/30/19 07/31/19 19:00 07:00 Output Total 1400 ml Balance -1400 ml Output Urine Total 1400 ml Stool Total 0 ml # Voids 2 # Bowel Movements 1 Laboratory Tests 07/30/19 15:53: Stool Occult Blood Negative 07/31/19 06:30: White Blood Count 5.9, Red Blood Count 3.20L, Hemoglobin 8.8L, Hematocrit 27.0L , Mean Corpuscular Volume 84, Mean Corpuscular Hemoglobin 27.4, Mean Corpuscular Hemoglobin Concent 32.5, Red Cell Distribution Width 15.0H, Platelet Count 181, Mean Platelet Volume 7.1, Neutrophils (%) (Auto) 70.6, Lymphocytes (%) (Auto) 16.5L, Monocytes (%) (Auto) 6.1, Eosinophils (%) (Auto) 6.1H, Basophils (%) (Auto) 0.8, Sodium Level 140, Potassium Level 4.5, Chloride Level 105, Carbon Dioxide Level 27, Anion Gap 8, Blood Urea Nitrogen 21H, Creatinine 0.7, Estimat Glomerular Filtration Rate > 60, Glucose Level 104, Calcium Level 8.7 Height (Feet): 5 Height (Inches): 6.00 Weight (Pounds): 185 General Appearance: no apparent distress, lethargic Respiratory/Chest: decreased breath sounds Abdomen: other - GT Objective no change Oskar Mohr MD Jul 31, 2019 13:00
[2019-07-31] MEDS: Bethanechol 25mg Tab ORAL SCH ×2 (13:30→17:28)
[2019-07-31 16:00] VITALS: BP 141/75
--- NOTE | 2019-07-31 16:28 | NUR ---
DISCHARGE SWALLOW/SPEECH THERAPY SUMMARY: PATIENT SEEN FOR DYSPHAGIA, SEE SWALLOW EVALUATION REPORT. GOALS MET FOR STAFF EDUCATED/TRAINED AND AWARE OF ORAL CARE AND NEED FOR ASPIRATION PRECAUTIONS WITH TUBE FEEDINGS RUNNING. GOALS FOR INTAKE NOT MET. UNABLE TO COMPLETE MOD BARIUM SWALLOW STUDY TODAY PATIENT NOT ALERT. PLAN: CONTINUE WITH NONORAL FEEDINGS AND ORAL CARE CONSIDER ORAL GRAT AFTER HE IS GIVEN AN OUTPT MODIFIED BARIUM SWALLOW STUDY (MBSS) TO FURTHER ASSESS SWALLOW, DETERMINE SILENT ASPIRATION RISK/ETIOLOGY, AND ATTEMPT TRIAL TX. PATIENT HAD LUNG INFILTRATES ON 07/29/19 CXR SO PO TRIALS W/O MBSS NOT RECOMMENDED. Addendum: 07/31/19 at 1632 by CHACE MENDOSA FERN PICKER PATIENT HAS A NGT AND KEEPS TAKING OFF 02 MASK. Addendum: 07/31/19 at 1643 by CHACE MENODSA FERN PICKER DISREGARD ABOVE NOTE WRONG PATIENT.
--- NOTE | 2019-07-31 19:19 | NUR ---
NURSE NOTES: Received patient from VIRGIL Gardner, patient in stable condition, AOx1, denies pain, able to make needs known to a degree, O2 n/c @2L, gtube patent, stoma intact, F/C draining to gravity, bed low&locked, side rails upx3, call light within reach, will continue to monitor and reassess
--- NOTE | 2019-07-31 19:19 | NUR ---
HAND-OFF: Report given to VIRGIL Kan.
[2019-07-31 20:00] VITALS: BP 130/67
[2019-07-31] MEDS: Tamsulosin 0.4mg cap ORAL SCH (21:08)
[2019-08-01] VITALS: BP 94/47
[2019-08-01 04:00] VITALS: BP 95/44
[2019-08-01] MEDS: NovoLOG Insulin Flexpen SUBQ SCH ×3 (06:00→13:00)
--- NOTE | 2019-08-01 07:05 | NUR ---
HAND-OFF: Report given to VIRGIL Francis , patient in stable condition, plan of care endorsed.
[2019-08-01 07:21] LABS: ANION GAP 8 mmol/L (5-15); BLOOD UREA NITROGEN 23 mg/dL (7-18); CALCIUM 8.6 MG/DL (8.5-10.1); CARBON DIOXIDE 29 MMOL/L (21-32); CHLORIDE 103 MMOL/L (98-107); CREATININE 0.8 MG/DL (0.55-1.30); POTASSIUM 4.6 MMOL/L (3.5-5.1); SODIUM 139 MMOL/L (136-145)
--- NOTE | 2019-08-01 07:39 | NUR ---
NURSE NOTES: Pt in bed in low position, bed alarm on, pt doesnt attempt to get out of bed, call light next to pt, Ox2, on NC 2L O2 sat >94, IV in tact and running fluids asymptomatic, pt G-tube aspirated with only 5ml out, flushed with 100ml and flushed without resistance, pt was turned and will need to be turned Q2hr, no s/s of distress or sob noted.
[2019-08-01 07:41] LABS: BASOPHILS % (AUTO) 0.3 % (0.0-2.0); EOSINOPHILS % (AUTO) 6.3 % (0.0-3.0); HEMATOCRIT 26.3 % (42.0-52.0); HEMOGLOBIN 8.5 G/DL (14.2-18.0); LYMPHOCYTES % (AUTO) 17.1 % (20.0-45.0); MEAN CORPUSCULAR VOLUME 85 FL (80-99); MONOCYTES % (AUTO) 6.4 % (1.0-10.0); NEUTROPHILS % (AUTO) 69.8 % (45.0-75.0); PLATELET COUNT 186 K/UL (150-450); RED BLOOD COUNT 3.09 M/UL (4.70-6.10); RED CELL DISTRIBUTION WIDTH 15.5 % (11.6-14.8); WHITE BLOOD COUNT 6.3 K/UL (4.8-10.8)
[2019-08-01 08:00] VITALS: BP 98/50
--- NOTE | 2019-08-01 08:43 | General Progress Note ---
Assessment/Plan Assessment/Plan: 1. History of dysphagia with G-tube. 2. Diabetes. 3. Parkinson disease. 4. History of atrial fibrillation with pacemaker placement in this admission. 5. Urethral obstruction requiring urethral stent placement in this admission. 6. anemia with stool ob positive stable H&H on ppi plan repeat CBC colonoscopy if drop in H&H and persistent stool ob positive, but will hold for now given neg second stool ob GTF GT care Subjective ROS Limited/Unobtainable: No Allergies: Coded Allergies: PENICILLINS (Verified Allergy, Unknown, 07/04/19) Objective Last 24 Hour Vital Signs Date Time Temp Pulse Resp B/P (MAP) Pulse Ox O2 Delivery O2 Flow Rate FiO2 08/01/19 08:09 Room Air 2.0 Nasal Cannula 08/01/19 08:00 98.1 68 18 98/50 (66) 97 08/01/19 04:00 65 08/01/19 04:00 97.7 63 19 95/44 (61) 96 08/01/19 00:00 67 08/01/19 00:00 97.9 65 20 94/47 (63) 95 07/31/19 21:08 71 130/67 07/31/19 21:00 Room Air 2.0 Nasal Cannula 07/31/19 20:29 71 18 99 Nasal Cannula 2.0 28 07/31/19 20:19 70 18 97 Nasal Cannula 2.0 28 07/31/19 20:19 97 Nasal Cannula 2.0 28 07/31/19 20:00 74 07/31/19 20:00 97.9 73 20 130/67 (88) 97 07/31/19 16:00 97.5 55 20 141/75 (97) 97 07/31/19 16:00 77 07/31/19 15:27 81 18 99 Nasal Cannula 2.0 28 80 18 95 07/31/19 12:30 121/65 07/31/19 12:00 97.8 65 20 123/52 (75) 97 07/31/19 12:00 79 07/31/19 11:17 70 18 99 Nasal Cannula 2.0 28 70 18 97 07/31/19 09:00 72 121/65 07/31/19 09:00 Room Air 2.0 Nasal Cannula Intake and Output 07/31/19 08/01/19 19:00 07:00 Intake Total 375 ml Output Total 1100 ml 401 ml Balance -725 ml -401 ml IV Total 375 ml Output Urine Total 1100 ml 400 ml Stool Total 1 ml Laboratory Tests 08/01/19 05:19: White Blood Count 6.3, Red Blood Count 3.09L, Hemoglobin 8.5L, Hematocrit 26.3L , Mean Corpuscular Volume 85, Mean Corpuscular Hemoglobin 27.5, Mean Corpuscular Hemoglobin Concent 32.3, Red Cell Distribution Width 15.5H, Platelet Count 186, Mean Platelet Volume 6.9, Neutrophils (%) (Auto) 69.8, Lymphocytes (%) (Auto) 17.1L, Monocytes (%) (Auto) 6.4, Eosinophils (%) (Auto) 6.3H, Basophils (%) (Auto) 0.3, Sodium Level 139, Potassium Level 4.6, Chloride Level 103, Carbon Dioxide Level 29, Anion Gap 8, Blood Urea Nitrogen 23H, Creatinine 0.8, Estimat Glomerular Filtration Rate > 60, Glucose Level 112H, Calcium Level 8.6 Height (Feet): 5 Height (Inches): 6.00 Weight (Pounds): 184 General Appearance: no apparent distress EENT: normal ENT inspection Neck: supple Cardiovascular: normal rate Respiratory/Chest: decreased breath sounds Abdomen: normal bowel sounds, non tender, soft Extremities: non-tender Delgado Small MD Aug 01, 2019 08:43
[2019-08-01] MEDS: Miralax 17gm pkt GT SCH (09:00)
[2019-08-01] MEDS: Docusate 100mg/10ml Liq NG SCH (09:10)
[2019-08-01] MEDS: Amiodarone 200mg tab ORAL SCH (09:10)
[2019-08-01] MEDS: Pantoprazole Inj IV SCH (09:10)
[2019-08-01] MEDS: Bethanechol 25mg Tab ORAL SCH ×2 (09:10→13:17)
[2019-08-01] MEDS: Sennosides 8.6mg tab GT SCH (09:10)
[2019-08-01] MEDS: Eliquis 2.5mg tablet ORAL SCH (09:10)
--- NOTE | 2019-08-01 10:46 | Cardiac Electrophysiology PN ---
Assessment/Plan Assessment/Plan 1. [place] fib with RVR. On Lopressor 25 mg bid, Amiodarone 200 daily and Eliquis 2.5 bid 2. Status post hillary arrest off any sinus node or AV destinee blocking agents. Non infarctional. Tachy hillary as also develops atrial fib with RVR. S/P DDD [facility] [place] PPM implant 07/26/19. 3. NSTEMI. Due to arrest. On Lopressor 25 bid 4. Respiratory failure. VQ scan low probability. Extubated 07/11/19 5. Dehydration and hyperatremia, resolved 6. S/P PEG 7. Diabetes. 8. Benign prostatic hypertrophy.FU Dr. Callejas. S/P CT abdomen that showed Left hydronephrosis. Tolerated Cystoscopy, Ureteroscopy and Laser lithotripsy and ureteral stent by Dr Callejas Alert with no CP. EF 65% 9. Full code. DW eligibility and occupancy interviewer pending Subjective Subjective Atrial pacing since pacer implant on 07/26/19. No events Objective Last 24 Hour Vital Signs Date Time Temp Pulse Resp B/P (MAP) Pulse Ox O2 Delivery O2 Flow Rate FiO2 08/01/19 09:00 68 98/50 08/01/19 08:09 Room Air 2.0 Nasal Cannula 08/01/19 08:00 98.1 68 18 98/50 (66) 97 08/01/19 07:48 62 08/01/19 04:00 65 08/01/19 04:00 97.7 63 19 95/44 (61) 96 08/01/19 00:00 67 08/01/19 00:00 97.9 65 20 94/47 (63) 95 07/31/19 21:08 71 130/67 07/31/19 21:00 Room Air 2.0 Nasal Cannula 07/31/19 20:29 71 18 99 Nasal Cannula 2.0 28 07/31/19 20:19 70 18 97 Nasal Cannula 2.0 28 07/31/19 20:19 97 Nasal Cannula 2.0 28 07/31/19 20:00 74 07/31/19 20:00 97.9 73 20 130/67 (88) 97 07/31/19 16:00 97.5 55 20 141/75 (97) 97 07/31/19 16:00 77 07/31/19 15:27 81 18 99 Nasal Cannula 2.0 28 80 18 95 2/26/20 12:30 121/65 07/31/19 12:00 97.8 65 20 123/52 (75) 97 07/31/19 12:00 79 07/31/19 11:17 70 18 99 Nasal Cannula 2.0 28 70 18 97 Intake and Output 07/31/19 08/01/19 19:00 07:00 Intake Total 375 ml Output Total 1100 ml 401 ml Balance -725 ml -401 ml IV Total 375 ml Output Urine Total 1100 ml 400 ml Stool Total 1 ml Laboratory Tests Test 08/01/19 05:19 White Blood Count 6.3 K/UL (4.8-10.8) Red Blood Count 3.09 M/UL (4.70-6.10) L Hemoglobin 8.5 G/DL (14.2-18.0) L Hematocrit 26.3 % (42.0-52.0) L Mean Corpuscular Volume 85 FL (80-99) Mean Corpuscular Hemoglobin 27.5 PG (27.0-31.0) Mean Corpuscular Hemoglobin Concent 32.3 G/DL (32.0-36.0) Red Cell Distribution Width 15.5 % (11.6-14.8) H Platelet Count 186 K/UL (150-450) Mean Platelet Volume 6.9 FL (6.5-10.1) Neutrophils (%) (Auto) 69.8 % (45.0-75.0) Lymphocytes (%) (Auto) 17.1 % (20.0-45.0) L Monocytes (%) (Auto) 6.4 % (1.0-10.0) Eosinophils (%) (Auto) 6.3 % (0.0-3.0) H Basophils (%) (Auto) 0.3 % (0.0-2.0) Sodium Level 139 MMOL/L (136-145) Potassium Level 4.6 MMOL/L (3.5-5.1) Chloride Level 103 MMOL/L (98-107) Carbon Dioxide Level 29 MMOL/L (21-32) Anion Gap 8 mmol/L (5-15) Blood Urea Nitrogen 23 mg/dL (7-18) H Creatinine 0.8 MG/DL (0.55-1.30) Estimat Glomerular Filtration Rate > 60 mL/min (>60) Glucose Level 112 MG/DL (74-106) H Calcium Level 8.6 MG/DL (8.5-10.1) Objective HEAD AND NECK: Mild JVD. LUNGS: Decreased breath sounds. CARDIOVASCULAR: IRRR . Pacer left subclavian no hematoma. No G/R/M ABDOMEN: Status post G-tube. EXTREMITIES: No pitting edema. Enio Santos MD Aug 01, 2019 10:46
--- NOTE | 2019-08-01 11:36 | Nephrology Progress Note ---
Assessment/Plan Problem List: (1) RIA (acute kidney injury) (2) Cardiac arrest with successful resuscitation (3) Respiratory failure with hypoxia (4) Hydronephrosis Assessment patient have Ria due to Low BP and s/p arrest elevated liver enzymes for same reason others: 1. Acute hypoxemic respiratory failure. 2. Hypotension possible sepsis. 3. Diabetes type 2. 4. Parkinson disease. 5. Hypercholesterolemia. 6. EjFx 65% reported 7. Dysphagia. 8. Benign prostatic hypertrophy. Plan s/p Cr 1.6 now wnl mag supplement Extubated 07/11 Nitro- Phos , K , Mag supplement as needed keep BP above 100 syst Pulm support monitor renal parameters discussed with RN VALENTINA: Moderate left hydronephrosis. Juan catheter. Echogenic right kidney. Suspected medical renal disease. CXR 07/15 IMPRESSION: Infiltrate and/or pleural effusion suspected at the left lung base. Mild pulmonary vascular congestion not excluded. Correlate clinically. Subjective ROS Limited/Unobtainable: No Constitutional: Reports: malaise, weakness Objective Objective Last 24 Hour Vital Signs Date Time Temp Pulse Resp B/P (MAP) Pulse Ox O2 Delivery O2 Flow Rate FiO2 08/01/19 09:00 68 98/50 08/01/19 08:09 Room Air 2.0 Nasal Cannula 08/01/19 08:00 98.1 68 18 98/50 (66) 97 08/01/19 07:48 62 08/01/19 04:00 65 08/01/19 04:00 97.7 63 19 95/44 (61) 96 08/01/19 00:00 67 08/01/19 00:00 97.9 65 20 94/47 (63) 95 07/31/19 21:08 71 130/67 07/31/19 21:00 Room Air 2.0 Nasal Cannula 07/31/19 20:29 71 18 99 Nasal Cannula 2.0 28 07/31/19 20:19 70 18 97 Nasal Cannula 2.0 28 07/31/19 20:19 97 Nasal Cannula 2.0 28 07/31/19 20:00 74 07/31/19 20:00 97.9 73 20 130/67 (88) 97 07/31/19 16:00 97.5 55 20 141/75 (97) 97 07/31/19 16:00 77 07/31/19 15:27 81 18 99 Nasal Cannula 2.0 28 80 18 95 07/31/19 12:30 121/65 07/31/19 12:00 97.8 65 20 123/52 (75) 97 07/31/19 12:00 79 Intake and Output 07/31/19 08/01/19 19:00 07:00 Intake Total 375 ml Output Total 1100 ml 401 ml Balance -725 ml -401 ml IV Total 375 ml Output Urine Total 1100 ml 400 ml Stool Total 1 ml Laboratory Tests 08/01/19 05:19: White Blood Count 6.3, Red Blood Count 3.09L, Hemoglobin 8.5L, Hematocrit 26.3L , Mean Corpuscular Volume 85, Mean Corpuscular Hemoglobin 27.5, Mean Corpuscular Hemoglobin Concent 32.3, Red Cell Distribution Width 15.5H, Platelet Count 186, Mean Platelet Volume 6.9, Neutrophils (%) (Auto) 69.8, Lymphocytes (%) (Auto) 17.1L, Monocytes (%) (Auto) 6.4, Eosinophils (%) (Auto) 6.3H, Basophils (%) (Auto) 0.3, Sodium Level 139, Potassium Level 4.6, Chloride Level 103, Carbon Dioxide Level 29, Anion Gap 8, Blood Urea Nitrogen 23H, Creatinine 0.8, Estimat Glomerular Filtration Rate > 60, Glucose Level 112H, Calcium Level 8.6 Height (Feet): 5 Height (Inches): 6.00 Weight (Pounds): 184 General Appearance: no apparent distress Respiratory/Chest: decreased breath sounds Abdomen: soft Objective no change Oskar Mohr MD Aug 01, 2019 11:36
[2019-08-01 12:00] VITALS: BP 117/53
--- NOTE | 2019-08-01 12:53 | Pulmonology Progress Note ---
Assessment/Plan Problems: (1) Occult blood positive stool (2) Cardiac arrest with successful resuscitation (3) Respiratory failure with hypoxia (4) Sepsis Assessment & Plan: resolved, off abx (5) Anemia (6) CARA (acute kidney injury) (7) Hypertensive heart disease (8) BPH (benign prostatic hyperplasia) (9) DVT (deep venous thrombosis) (10) Parkinson disease (11) Diabetes mellitus (12) Feeding by G-tube Assessment/Plan was not able to urinate without the Juan, Juan is back in H/H slowly trending down. OB was positive, repeat OB is negative GI consult reviewed, s/p lithotripsy and uretral stent placement pacemaker done on monday wbc wnl, afebrile bun/creatinine better no new cultures tolerating diet aspiration precaution titrate fio2 to sat of 92% sliding scale\ Subjective Constitutional: Reports: no symptoms HEENT: Repors: no symptoms Respiratory: Reports: no symptoms Allergies: Coded Allergies: PENICILLINS (Verified Allergy, Unknown, 07/04/19) Objective Last 24 Hour Vital Signs Date Time Temp Pulse Resp B/P (MAP) Pulse Ox O2 Delivery O2 Flow Rate FiO2 08/01/19 12:00 96.6 64 24 117/53 (74) 100 08/01/19 09:00 68 98/50 08/01/19 08:09 Room Air 2.0 Nasal Cannula 08/01/19 08:00 98.1 68 18 98/50 (66) 97 08/01/19 07:48 62 08/01/19 04:00 65 08/01/19 04:00 97.7 63 19 95/44 (61) 96 08/01/19 00:00 67 08/01/19 00:00 97.9 65 20 94/47 (63) 95 07/31/19 21:08 71 130/67 07/31/19 21:00 Room Air 2.0 Nasal Cannula 07/31/19 20:29 71 18 99 Nasal Cannula 2.0 28 07/31/19 20:19 70 18 97 Nasal Cannula 2.0 28 07/31/19 20:19 97 Nasal Cannula 2.0 28 07/31/19 20:00 74 07/31/19 20:00 97.9 73 20 130/67 (88) 97 07/31/19 16:00 97.5 55 20 141/75 (97) 97 07/31/19 16:00 77 07/31/19 15:27 81 18 99 Nasal Cannula 2.0 28 80 18 95 Intake and Output 07/31/19 08/01/19 19:00 07:00 Intake Total 375 ml Output Total 1100 ml 401 ml Balance -725 ml -401 ml IV Total 375 ml Output Urine Total 1100 ml 400 ml Stool Total 1 ml Objective doing better General Appearance: WD/WN HEENT: normocephalic, atraumatic Respiratory/Chest: chest wall non-tender, lungs clear Cardiovascular: normal peripheral pulses, normal rate Abdomen: normal bowel sounds, soft, non tender Genitourinary: normal external genitalia Extremities: no cyanosis Skin: no rash 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 Laboratory Tests 08/01/19 05:19: White Blood Count 6.3, Red Blood Count 3.09L, Hemoglobin 8.5L, Hematocrit 26.3L , Mean Corpuscular Volume 85, Mean Corpuscular Hemoglobin 27.5, Mean Corpuscular Hemoglobin Concent 32.3, Red Cell Distribution Width 15.5H, Platelet Count 186, Mean Platelet Volume 6.9, Neutrophils (%) (Auto) 69.8, Lymphocytes (%) (Auto) 17.1L, Monocytes (%) (Auto) 6.4, Eosinophils (%) (Auto) 6.3H, Basophils (%) (Auto) 0.3, Sodium Level 139, Potassium Level 4.6, Chloride Level 103, Carbon Dioxide Level 29, Anion Gap 8, Blood Urea Nitrogen 23H, Creatinine 0.8, Estimat Glomerular Filtration Rate > 60, Glucose Level 112H, Calcium Level 8.6 Current Medications Medications (Trade) Dose Ordered Sig/Genoveva Route PRN Reason Start Time Stop Time Status Last Admin Dose Admin Acetaminophen (Tylenol) 650 mg Q6H PRN GT Mild Pain/Temp > 100.5 07/25/19 16:15 08/24/19 16:14 Acetaminophen (Tylenol) 650 mg Q6H PRN GT Headache 07/26/19 13:00 08/25/19 12:59 Acetaminophen/ Codeine Phosphate (Tylenol #3) 1 tab Q4H PRN GT Moderate Pain (Pain Scale 4-6) 07/26/19 13:00 08/02/19 12:59 Amiodarone HCl (Cordarone) 200 mg DAILY ORAL 07/29/19 09:00 08/28/19 08:59 08/01/19 09:10 Apixaban (Eliquis) 2.5 mg BID ORAL 07/30/19 18:00 08/29/19 17:59 08/01/19 09:10 Bethanechol Chloride (Urecholine) 25 mg THREE TIMES A DAY ORAL 07/31/19 13:30 08/30/19 13:29 08/01/19 09:10 Dextrose (Dextrose 50%) 25 ml Q30M PRN IV Hypoglycemia 07/19/19 06:30 08/11/19 11:59 Dextrose (Dextrose 50%) 50 ml Q30M PRN IV Hypoglycemia 07/19/19 06:30 08/11/19 11:59 Docusate Sodium (Colace) 100 mg TWICE A DAY NG 07/30/19 18:00 08/29/19 17:59 08/01/19 09:10 Finasteride (Proscar) 5 mg DAILY ORAL 07/19/19 09:00 08/13/19 08:59 08/01/19 09:11 Hydralazine HCl (Apresoline) 10 mg Q4H PRN IV bp over 160 syst 07/19/19 06:30 08/05/19 06:29 Insulin Aspart (NovoLOG) Q6HR SUBQ 07/19/19 12:00 08/11/19 16:29 07/29/19 17:18 Metoprolol Tartrate (Lopressor) 25 mg Q12HR ORAL 07/27/19 21:00 08/26/19 20:59 07/31/19 21:08 Morphine Sulfate (Morphine Sulfate) 2 mg Q1H PRN IVP Severe Pain (Pain Scale 7-10) 07/26/19 13:00 08/02/19 12:59 Nitroglycerin (Ntg) 1 patch Q24H TDERMAL 07/19/19 12:30 08/05/19 12:29 07/31/19 12:30 Ondansetron HCl (Zofran) 4 mg Q6H PRN IVP Nausea & Vomiting 07/26/19 13:00 08/25/19 12:59 Pantoprazole (Protonix) 40 mg Q12HR IV 07/19/19 09:00 08/04/19 11:14 08/01/19 09:10 Polyethylene Glycol (Miralax) 17 gm DAILY GT 07/26/19 09:00 08/24/19 11:59 07/29/19 08:44 Potassium Chloride (K-Dur) 20 meq DAILY GT 07/22/19 09:00 08/21/19 08:59 08/01/19 09:11 Promethazine HCl/ Codeine (Phenergan with Codeine) 5 ml Q4H PRN GT For Cough 07/25/19 16:00 08/03/19 06:29 Sennosides (Senokot) 8.6 mg DAILY GT 07/26/19 09:00 08/24/19 11:59 08/01/19 09:10 Sodium Chloride 1,000 ml @ 75 mls/hr [id number] IV 07/22/19 16:41 08/21/19 16:40 07/31/19 21:40 Tamsulosin HCl (Flomax) 0.4 mg BEDTIME ORAL 07/19/19 21:00 08/12/19 20:59 07/31/19 21:08 Kathryn Lopez MD Aug 01, 2019 12:53
[2019-08-01] MEDS: Nitroglycerin Patch 0.4mg TDERMAL SCH (13:17)
--- NOTE | 2019-08-01 13:44 | NUR ---
WEEKLY SWALLOW / SPEECH THERAPY SUMMARY: PATIENT SEEN FOR DYSPHAGIA, SEE SWALLOW EVALUATION REPORT. CUURENTLY HE IS ONLY GETTING PEG FEEDINGS AND ORAL CARE. GOALS MET FOR NEW STAFF EDUCATED/TRAINED IN POSTED ORAL CARE NEEDS AND ASPIRATION PRECAUTIONS WHEN THE PEG FEEDING IS RUNNING. GOALS NOT MET FOR PO INTAKE DUE TO THE PATIENT WAS EITHER NOT ALERT, NOT READY OR THERE WERE SCHEDULING ISSUES FOR MODIFIED BARIUM SWALLOW STUDY RECOMMENDED PRIOR TO PO INTAKE GIVEN H/O DYSPHAGIA AND HIGH SILENT ASPIRATION RISK. PER RNNEELAM, THE PATIENT IS READY FOR STUDY NOW. DR GUEVARA GAVE A TELEPHONE ORDER FOR STUDY TODAY. PLAN: SEE MOD BARIUM SWALLOW STUDY REPORT AND RECOMMENDATIONS CONTINUE WITH ORAL CARE AND PEG FEEDINGS WITH ASP PRECAUTIONS WHEN TF RUNNING.
[2019-08-01] MEDS ORDERED: Varibar Nectar 240ml MC PRN (14:30)
[2019-08-01] MEDS ORDERED: Varibar Honey 250ml MC PRN (14:30)
[2019-08-01] MEDS ORDERED: Varibar Pudding 230ml MC PRN (14:30)
[2019-08-01] MEDS ORDERED: Varibar Thin Liquid powder 148gm MC PRN (14:30)
--- NOTE | 2019-08-01 14:51 | NUR ---
*-*DISCHARGE PLANNING*-* PATIENT HAS BEEN ACCEPTED BACK: [facility] P: [phone] F:[phone]
--- NOTE | 2019-08-01 14:54 | NUR ---
*-*DISCHARGE PLANNED*-* PATIENT IS BEING DISCHARGED BACK: [facility] P: [phone] F: [phone] RM#[id number] [facility] [id number] Addendum: 08/01/19 at 1459 by MATTIE LANDIS CM *-*DISCHARGE PLANNED*-* PATIENT IS BEING DISCHARGED BACK: [facility] P: [phone] F: [phone] RM#[id number] [facility] [id number] ETA 4:30PM/1630PM
--- NOTE | 2019-08-01 15:11 | Urology Progress Note ---
Assessment/Plan Assessment/Plan: 1. Left-sided hydronephrosis, poss chronic. 2. Proteinuria. 3. Hematuria. 4. Pyuria. 5. Urinary retention. 6. BPH history. 7. Rule out neurogenic bladder. 8. Mild acute kidney injury, improved. 9. Left ureteral calculus. 10. Right renal calculi. 11. Cystitis. 12. Left inguinal hernia. 13. POD # 8, left ureteroscopy/laser litho/stent, right ESWL monitor clinically failed voiding trial nixon back indwelling, replaced 07/30 hand irrigate PRN cath secured to pt's leg s/p abx prophylaxis monitor renal fxn cont flomax and proscar urecholine added repeat voiding trial later Subjective Allergies: Coded Allergies: PENICILLINS (Verified Allergy, Unknown, 07/04/19) Subjective all noted, looks comfortable, nixon back indwelling Objective Last 24 Hour Vital Signs Date Time Temp Pulse Resp B/P (MAP) Pulse Ox O2 Delivery O2 Flow Rate FiO2 08/01/19 13:17 117/53 08/01/19 12:00 96.6 64 24 117/53 (74) 100 08/01/19 09:00 68 98/50 08/01/19 08:09 Room Air 2.0 Nasal Cannula 08/01/19 08:00 98.1 68 18 98/50 (66) 97 08/01/19 07:48 62 08/01/19 04:00 65 08/01/19 04:00 97.7 63 19 95/44 (61) 96 08/01/19 00:00 67 08/01/19 00:00 97.9 65 20 94/47 (63) 95 07/31/19 21:08 71 130/67 07/31/19 21:00 Room Air 2.0 Nasal Cannula 07/31/19 20:29 71 18 99 Nasal Cannula 2.0 28 07/31/19 20:19 70 18 97 Nasal Cannula 2.0 28 07/31/19 20:19 97 Nasal Cannula 2.0 28 07/31/19 20:00 74 07/31/19 20:00 97.9 73 20 130/67 (88) 97 07/31/19 16:00 97.5 55 20 141/75 (97) 97 07/31/19 16:00 77 07/31/19 15:27 81 18 99 Nasal Cannula 2.0 28 80 18 95 Intake and Output 07/31/19 08/01/19 19:00 07:00 Intake Total 375 ml Output Total 1100 ml 401 ml Balance -725 ml -401 ml IV Total 375 ml Output Urine Total 1100 ml 400 ml Stool Total 1 ml Microbiology Date/Time Source Procedure Growth Status 07/11/19 12:00 Blood Blood Culture - Final NO GROWTH AFTER 5 DAYS Complete 07/04/19 10:15 Sputum Gram Stain - Final Complete 07/04/19 10:15 Sputum Culture - Final Nicolle Albicans Usual Respiratory Valery Complete 07/11/19 21:20 Urine,Clean Catch Urine Culture - Final NO GROWTH AFTER 48 HOURS Complete 07/04/19 00:43 Rectum - Final NO CARBAPENEM-RESISTANT ENTEROBACTERI... Complete Current Medications Medications (Trade) Dose Ordered Sig/Genoveva Route PRN Reason Start Time Stop Time Status Last Admin Dose Admin Acetaminophen (Tylenol) 650 mg Q6H PRN GT Mild Pain/Temp > 100.5 07/25/19 16:15 08/24/19 16:14 Acetaminophen (Tylenol) 650 mg Q6H PRN GT Headache 07/26/19 13:00 08/25/19 12:59 Acetaminophen/ Codeine Phosphate (Tylenol #3) 1 tab Q4H PRN GT Moderate Pain (Pain Scale 4-6) 07/26/19 13:00 08/02/19 12:59 Amiodarone HCl (Cordarone) 200 mg DAILY ORAL 07/29/19 09:00 08/28/19 08:59 08/01/19 09:10 Apixaban (Eliquis) 2.5 mg BID ORAL 07/30/19 18:00 08/29/19 17:59 08/01/19 09:10 Barium Sulfate (Varibar Honey) 250 ml NOW PRN MC RAD 08/01/19 14:30 08/04/19 18:00 Barium Sulfate (Varibar [place]) 240 ml NOW PRN MC RAD 08/01/19 14:30 08/04/19 14:16 Barium Sulfate (Varibar Pudding) 230 ml NOW PRN MC RAD 08/01/19 14:30 08/04/19 14:16 Barium Sulfate (Varibar Thin Liquid powder) 148 gm NOW PRN MC RAD 08/01/19 14:30 08/04/19 14:16 Bethanechol Chloride (Urecholine) 25 mg THREE TIMES A DAY ORAL 07/31/19 13:30 08/30/19 13:29 08/01/19 13:17 Dextrose (Dextrose 50%) 25 ml Q30M PRN IV Hypoglycemia 07/19/19 06:30 08/11/19 11:59 Dextrose (Dextrose 50%) 50 ml Q30M PRN IV Hypoglycemia 07/19/19 06:30 08/11/19 11:59 Docusate Sodium (Colace) 100 mg TWICE A DAY NG 07/30/19 18:00 08/29/19 17:59 08/01/19 09:10 Finasteride (Proscar) 5 mg DAILY ORAL 07/19/19 09:00 08/13/19 08:59 08/01/19 09:11 Hydralazine HCl (Apresoline) 10 mg Q4H PRN IV bp over 160 syst 07/19/19 06:30 08/05/19 06:29 Insulin Aspart (NovoLOG) Q6HR SUBQ 07/19/19 12:00 08/11/19 16:29 07/29/19 17:18 Metoprolol Tartrate (Lopressor) 25 mg Q12HR ORAL 07/27/19 21:00 08/26/19 20:59 07/31/19 21:08 Morphine Sulfate (Morphine Sulfate) 2 mg Q1H PRN IVP Severe Pain (Pain Scale 7-10) 07/26/19 13:00 08/02/19 12:59 Nitroglycerin (Ntg) 1 patch Q24H TDERMAL 07/19/19 12:30 08/05/19 12:29 08/01/19 13:17 Ondansetron HCl (Zofran) 4 mg Q6H PRN IVP Nausea & Vomiting 07/26/19 13:00 08/25/19 12:59 Pantoprazole (Protonix) 40 mg Q12HR IV 07/19/19 09:00 08/04/19 11:14 08/01/19 09:10 Polyethylene Glycol (Miralax) 17 gm DAILY GT 07/26/19 09:00 08/24/19 11:59 07/29/19 08:44 Potassium Chloride (K-Dur) 20 meq DAILY GT 07/22/19 09:00 08/21/19 08:59 08/01/19 09:11 Promethazine HCl/ Codeine (Phenergan with Codeine) 5 ml Q4H PRN GT For Cough 07/25/19 16:00 08/03/19 06:29 Sennosides (Senokot) 8.6 mg DAILY GT 07/26/19 09:00 08/24/19 11:59 08/01/19 09:10 Sodium Chloride 1,000 ml @ 75 mls/hr [id number] IV 07/22/19 16:41 08/21/19 16:40 07/31/19 21:40 Tamsulosin HCl (Flomax) 0.4 mg BEDTIME ORAL 07/19/19 21:00 08/12/19 20:59 07/31/19 21:08 Laboratory Tests 08/01/19 05:19: White Blood Count 6.3, Red Blood Count 3.09L, Hemoglobin 8.5L, Hematocrit 26.3L , Mean Corpuscular Volume 85, Mean Corpuscular Hemoglobin 27.5, Mean Corpuscular Hemoglobin Concent 32.3, Red Cell Distribution Width 15.5H, Platelet Count 186, Mean Platelet Volume 6.9, Neutrophils (%) (Auto) 69.8, Lymphocytes (%) (Auto) 17.1L, Monocytes (%) (Auto) 6.4, Eosinophils (%) (Auto) 6.3H, Basophils (%) (Auto) 0.3, Sodium Level 139, Potassium Level 4.6, Chloride Level 103, Carbon Dioxide Level 29, Anion Gap 8, Blood Urea Nitrogen 23H, Creatinine 0.8, Estimat Glomerular Filtration Rate > 60, Glucose Level 112H, Calcium Level 8.6 Height (Feet): 5 Height (Inches): 6.00 Weight (Pounds): 184 Objective exam stable nixon indwelling urine yellow/kristen CT A/P (07/12) noted, KUB noted Claytno Callejas MD Aug 01, 2019 15:11
--- NOTE | 2019-08-01 15:28 | NUR ---
NURSE NOTES: Patient received discharge order, family was called and caroline was made aware, pt will be leaving with nixon but no IV.
--- NOTE | 2019-08-01 15:30 | Infectious Diseases Prog Note ---
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 Multiple nonobstructive stones within the right kidney. Thickening of the wall the urinary bladder consistent with cystitis. Juan catheter in good position. 10 x 7 cm left inguinal hernia containing bowel. No evidence of obstruction.Trace left pleural effusion. Bilateral posterior basal atelectasis. Sepsis, Sp Probable UTI, sp rx Acute hypoxic respiratory failure, intubated 07/05; extubated 07/11 Aspiration pneumonia vs pneumonitis Gram positive bacteremia- contaminant -07/18 CXR: Mild pulmonary vascular congestion may be present. Correlate clinically.Basal atelectasis versus infiltrate. No change -07/15 CXR:Infiltrate and/or pleural effusion suspected at the left lung base. Mild pulmonary vascular congestion not excluded. Correlate clinically. -07/13 CXR: Improving pulmonary venous congestion with unchanged small left pleural effusion and slight worsening of left basilar infiltrate, indeterminate between atelectasis and pneumonia -07/11 u/a wbc 2-4, nit neg, leuk +3; ucx Neg Bcx Neg -07/06 Bcx Neg -07/05 CXR:Mild CHF -u/a wbc 5-10, nit neg, leuk +2; ucx Neg -Bcx 06/08 dipteriods -sp cx usual resp rupert -CXR: No acute process -influenza sc neg -v. duplex: no DVT -V/q scan:Findings are deemed low probability for pulmonary embolus Fever; low grade, recurrent- SP Mild leukocytosis,recurrent- SP CARA;SP Dm2 dysphagia s/p GT hx of PNA parkinson disease HTN bed bound [facility] resident Plan: - Monitor off abx -07/27/19 SP Cefoxitin #4 ( Peripoerative) -07/17 SP Ceftriaxone #3 -07/15 SP Flagyl # 11, Cefepime #12 -07/09 SP IV Vancomycin #5 -07/04 SP Levaquin x1 -Monitor CBC/CMP, temperatures -aspiration precautions -GT care -Cards, Uro, nephro f/u -Cdiff if diarrhea Thank you for this consultation. Will continue to follow along with you. Subjective Allergies: Coded Allergies: PENICILLINS (Verified Allergy, Unknown, 07/04/19) Subjective afebrile stable Objective Vital Signs Last 24 Hour Vital Signs Date Time Temp Pulse Resp B/P (MAP) Pulse Ox O2 Delivery O2 Flow Rate FiO2 08/01/19 13:17 117/53 08/01/19 12:00 96.6 64 24 117/53 (74) 100 08/01/19 09:00 68 98/50 08/01/19 08:09 Room Air 2.0 Nasal Cannula 08/01/19 08:00 98.1 68 18 98/50 (66) 97 08/01/19 07:48 62 08/01/19 04:00 65 08/01/19 04:00 97.7 63 19 95/44 (61) 96 08/01/19 00:00 67 08/01/19 00:00 97.9 65 20 94/47 (63) 95 07/31/19 21:08 71 130/67 07/31/19 21:00 Room Air 2.0 Nasal Cannula 07/31/19 20:29 71 18 99 Nasal Cannula 2.0 28 07/31/19 20:19 70 18 97 Nasal Cannula 2.0 28 07/31/19 20:19 97 Nasal Cannula 2.0 28 07/31/19 20:00 74 07/31/19 20:00 97.9 73 20 130/67 (88) 97 07/31/19 16:00 97.5 55 20 141/75 (97) 97 07/31/19 16:00 77 Height (Feet): 5 Height (Inches): 6.00 Weight (Pounds): 184 HEENT: anicteric Respiratory/Chest: normal breath sounds Cardiovascular: regular rhythm Laboratory Tests Test 08/01/19 05:19 White Blood Count 6.3 K/UL (4.8-10.8) Red Blood Count 3.09 M/UL (4.70-6.10) L Hemoglobin 8.5 G/DL (14.2-18.0) L Hematocrit 26.3 % (42.0-52.0) L Mean Corpuscular Volume 85 FL (80-99) Mean Corpuscular Hemoglobin 27.5 PG (27.0-31.0) Mean Corpuscular Hemoglobin Concent 32.3 G/DL (32.0-36.0) Red Cell Distribution Width 15.5 % (11.6-14.8) H Platelet Count 186 K/UL (150-450) Mean Platelet Volume 6.9 FL (6.5-10.1) Neutrophils (%) (Auto) 69.8 % (45.0-75.0) Lymphocytes (%) (Auto) 17.1 % (20.0-45.0) L Monocytes (%) (Auto) 6.4 % (1.0-10.0) Eosinophils (%) (Auto) 6.3 % (0.0-3.0) H Basophils (%) (Auto) 0.3 % (0.0-2.0) Sodium Level 139 MMOL/L (136-145) Potassium Level 4.6 MMOL/L (3.5-5.1) Chloride Level 103 MMOL/L (98-107) Carbon Dioxide Level 29 MMOL/L (21-32) Anion Gap 8 mmol/L (5-15) Blood Urea Nitrogen 23 mg/dL (7-18) H Creatinine 0.8 MG/DL (0.55-1.30) Estimat Glomerular Filtration Rate > 60 mL/min (>60) Glucose Level 112 MG/DL (74-106) H Calcium Level 8.6 MG/DL (8.5-10.1) Current Medications Medications (Trade) Dose Ordered Sig/Genoveva Route PRN Reason Start Time Stop Time Status Last Admin Dose Admin Acetaminophen (Tylenol) 650 mg Q6H PRN GT Mild Pain/Temp > 100.5 07/25/19 16:15 08/24/19 16:14 Acetaminophen (Tylenol) 650 mg Q6H PRN GT Headache 07/26/19 13:00 08/25/19 12:59 Acetaminophen/ Codeine Phosphate (Tylenol #3) 1 tab Q4H PRN GT Moderate Pain (Pain Scale 4-6) 07/26/19 13:00 08/02/19 12:59 Amiodarone HCl (Cordarone) 200 mg DAILY ORAL 07/29/19 09:00 08/28/19 08:59 08/01/19 09:10 Apixaban (Eliquis) 2.5 mg BID ORAL 07/30/19 18:00 08/29/19 17:59 08/01/19 09:10 Barium Sulfate (Varibar Honey) 250 ml NOW PRN MC RAD 08/01/19 14:30 08/04/19 18:00 Barium Sulfate (Varibar [place]) 240 ml NOW PRN MC RAD 08/01/19 14:30 08/04/19 14:16 Barium Sulfate (Varibar Pudding) 230 ml NOW PRN MC RAD 08/01/19 14:30 08/04/19 14:16 Barium Sulfate (Varibar Thin Liquid powder) 148 gm NOW PRN MC RAD 08/01/19 14:30 08/04/19 14:16 Bethanechol Chloride (Urecholine) 25 mg THREE TIMES A DAY ORAL 07/31/19 13:30 08/30/19 13:29 08/01/19 13:17 Dextrose (Dextrose 50%) 25 ml Q30M PRN IV Hypoglycemia 07/19/19 06:30 08/11/19 11:59 Dextrose (Dextrose 50%) 50 ml Q30M PRN IV Hypoglycemia 07/19/19 06:30 08/11/19 11:59 Docusate Sodium (Colace) 100 mg TWICE A DAY NG 07/30/19 18:00 08/29/19 17:59 08/01/19 09:10 Finasteride (Proscar) 5 mg DAILY ORAL 07/19/19 09:00 08/13/19 08:59 08/01/19 09:11 Hydralazine HCl (Apresoline) 10 mg Q4H PRN IV bp over 160 syst 07/19/19 06:30 08/05/19 06:29 Insulin Aspart (NovoLOG) Q6HR SUBQ 07/19/19 12:00 08/11/19 16:29 07/29/19 17:18 Metoprolol Tartrate (Lopressor) 25 mg Q12HR ORAL 07/27/19 21:00 08/26/19 20:59 07/31/19 21:08 Morphine Sulfate (Morphine Sulfate) 2 mg Q1H PRN IVP Severe Pain (Pain Scale 7-10) 07/26/19 13:00 08/02/19 12:59 Nitroglycerin (Ntg) 1 patch Q24H TDERMAL 07/19/19 12:30 08/05/19 12:29 08/01/19 13:17 Ondansetron HCl (Zofran) 4 mg Q6H PRN IVP Nausea & Vomiting 07/26/19 13:00 08/25/19 12:59 Pantoprazole (Protonix) 40 mg Q12HR IV 07/19/19 09:00 08/04/19 11:14 08/01/19 09:10 Polyethylene Glycol (Miralax) 17 gm DAILY GT 07/26/19 09:00 08/24/19 11:59 07/29/19 08:44 Potassium Chloride (K-Dur) 20 meq DAILY GT 07/22/19 09:00 08/21/19 08:59 08/01/19 09:11 Promethazine HCl/ Codeine (Phenergan with Codeine) 5 ml Q4H PRN GT For Cough 07/25/19 16:00 08/03/19 06:29 Sennosides (Senokot) 8.6 mg DAILY GT 07/26/19 09:00 08/24/19 11:59 08/01/19 09:10 Sodium Chloride 1,000 ml @ 75 mls/hr [id number] IV 07/22/19 16:41 08/21/19 16:40 07/31/19 21:40 Tamsulosin HCl (Flomax) 0.4 mg BEDTIME ORAL 07/19/19 21:00 08/12/19 20:59 07/31/19 21:08 William Ely MD Aug 01, 2019 15:30
--- NOTE | 2019-08-01 15:38 | NUR ---
ST NOTES: COMPLETED MODIFIED BARIUM SWALLOW STUDY, SEE FULL REPORT TO FOLLOW. CALL [phone] Jose Enrique MENDOSA FOR DETAILS. PT IS BEING D/C TO SNF NOW. HE REQUIRED SOME MILD OROPHARYNGEAL SUCTION (SOME PRODUCTIVE COUGH) BILATERAL ORAL AND BACK OF MOUTH PRIOR TO STUDY. ON 2 LITERS NC. MIN ORAL SALIVA ANTERIOR SALIVA SPILLAGE AND ASKED TO RE-SWALLOW. HE WANTS TO HAVE SOME PO BUT IS AWARE THAT THE STUDY IS MOSTLY TO SEE IF HE IS READY TO TAKE PO OR NEEDS MORE TIME AND SWALLOW THERAPY PRIOR TO PO INTAKE. 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 WITH INCREASED OVERALL ORAL PREP AND OROPHARYNGEAL TRANSIT TIMES DUE TO SENSORIMOTOR DEFICITS AND COMPOUNDED BY RESPIRATORY DIFFICULTIES (GETS SOB AND RESP RATE GOES UP FROM BASELINE 18-24 TO HIGHER AT 26-28 BPM WITH EXCESSIVE SWALLOWING IF HE DOES NOT REST), FATIGUE, AND LIMITED ABILITY TO USE SOME COMPENSATORY STRATEGIES (BARELY GETS HIS CHIN TO NEUTRAL AND SPONTANEOUSLY TENDS KEEP HIS CHIN SLIGHTLY ELEVATED AND CANNOT ROTATE HEAD BILATERALLY AT FULL ROM) GIVEN THIN LIQUIDS (TSP, TSP NEEDED PHARYNGEAL SUCTION), NECTAR THICK LIQUIDS (TSP, SMALL SIP VIA CUP, TSP HEAD ROTATION RIGHT WITH MULTIPLE EFFORTFUL SWALLOWS AND BREATHHOLD, COUGH/SUCTION AND TSP HEAD TURN LEFT WITH SAME STRATEGIES NOTED ABOVE (BETTER). NO ASPIRATION BUT HIGH RISK FOR SIGNIFICANT ASPIRATION MOSTLY AFTER THE SWALLOW. TRACE AND AUDIBLE DEEP LARYNGEAL PENETRATION (LP) TO THE LEVEL OF THE VOCAL FOLDS W/O EJECTION MOSTLY AFTER THE SWALLOW DUE TO PHARYNGEAL DYSMOTILITY AND WEAKNESS (REDUCED BASE OF TONGUE RETRACTION, HYOLARYNGEAL EXCURSION; AND PHARYNGEAL STRIPPING WAVE). LP ALSO NOTED BEFORE THE SWALLOW DUE TO DELAYED/WEAK SWALLOW, AND LATE/INCOMPLETE CLOSURE OF LARYNGEAL VESTIBULE. THROUGHOUT THE STUDY, HE REQUIRED ORAL SUCTION ASSIST TO CLEAR PHARYNGEAL MORE THAN ORAL RESIDUE AND REST DUE TO SOB. HIGH RISK FOR CHRONIC TRACE ASPIRATION/PENETRATION AND REDUCED SWALLOW EFFICIENCY DUE TO THE FOLLOWING COMPONENTS: Oral Impairment Lip Closure Tongue Control Bolus transport/lingual motion Oral residue Initiation pharyngeal swallow Pharyngeal Impairment Soft palate elevation Laryngeal elevation (LE) Ant. hyoid excursion Epiglottic movement Late and incomplete laryngeal vestibule closure Pharyngeal stripping wave Pharyngeal segment opening Tongue base retraction Pharyngeal residue Decreased pharyngeal sensation ESOPHAGEAL PHASE IS GROSSLY FUNCTIONAL IN LATERAL VIEW. TRIAL TX: SOME BENEFIT FROM HEAD TURN LEFT (BETTER THAN RIGHT) WHICH CLEARS PYRIFORM SINUSES BETTER THAN VALLECULAE, MULTIPLE HARD SWALLOW 3-4 TSP MORE WITH SIP CUP, CHIN NEUTRAL (COULD NOT DUE TUCK AND TENDS TO KEEP CHIN SLIGHTLY UP ? FOR BREATHING ISSUES), REST IF SOB (RESP RATE GOES UP), EFFORTFUL BREATH HOLD AND COUGH SPIT RESIDUE (VALLECULAE MOSTLY) WITH ASSIST FROM SUCTION. RECOMMENDATIONS: CONTINUE WITH NONORAL PEG FEEDINGS AND ORAL CARE/SUCTION PRN. LIMITED PO TRIALS WITH AMMUNITION ASSEMBLY II LABORER ONLY AT TSP LEVEL DURING DYSPHAGIA THERAPY SESSIONS WITH NECTAR THICK WATER ONLY USING HEAD TURNED LEFT, CHIN NEUTRAL TO TUCKED, HARD 3-4 SWALLOWS, EFFORTFUL BREATH HOLD (IF RESP RATE NOT ABOVE 25 BPM), COUGH SPIT/RE-SWALLOW. HIGHLY RECOMMEND THAT THE PATIENT ONLY BE CLEARED FOR PO AT A MEAL LEVEL AFTER A REPEAT MODIFIED BARIUM SWALLOW STUDY IS COMPLETED IN 2-4 WEEKS OR MORE AN OUTPATIENT DUE TO HIS HIGH RISK FOR SIGNIFICANT ASPIRATION AND RECURRENT ASPIRATION PNEUMONIA. Addendum: 08/02/19 at 1013 by CHACE MENDOSA AMMUNITION ASSEMBLY II LABORER UPDATED SUMMARY OF [facility] (FAXED TO [facility]) : COMPLETED MODIFIED BARIUM SWALLOW STUDY, SEE FULL REPORT TO FOLLOW. CALL [phone] Jose Enrique MENDOSA FOR DETAILS. PT IS BEING D/C TO SNF NOW. HE REQUIRED SOME MILD OROPHARYNGEAL SUCTION (SOME PRODUCTIVE COUGH) BILATERAL ORAL AND BACK OF MOUTH PRIOR TO STUDY. ON 2 LITERS NC. MIN ORAL SALIVA ANTERIOR SALIVA SPILLAGE AND ASKED TO RE-SWALLOW. HE WANTS TO HAVE SOME PO BUT IS AWARE THAT THE STUDY IS MOSTLY TO SEE IF HE IS READY TO TAKE PO OR NEEDS MORE TIME AND SWALLOW THERAPY PRIOR TO PO INTAKE. 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 WITH INCREASED OVERALL ORAL PREP AND OROPHARYNGEAL TRANSIT TIMES DUE TO SENSORIMOTOR DEFICITS AND COMPOUNDED BY RESPIRATORY DIFFICULTIES (GETS SOB AND RESP RATE GOES UP FROM BASELINE 18-24 TO HIGHER AT 26-28 BPM WITH EXCESSIVE SWALLOWING IF HE DOES NOT REST), FATIGUE, AND LIMITED ABILITY TO USE SOME COMPENSATORY STRATEGIES (BARELY GETS HIS CHIN TO NEUTRAL AND SPONTANEOUSLY TENDS TO KEEP HIS CHIN SLIGHTLY ELEVATED AND CANNOT ROTATE HEAD BILATERALLY AT FULL ROM) GIVEN THIN LIQUIDS (TSP, TSP NEEDED PHARYNGEAL SUCTION), NECTAR THICK LIQUIDS (TSP, SMALL SIP VIA CUP, TSP HEAD ROTATION RIGHT WITH MULTIPLE EFFORTFUL SWALLOWS AND BREATHHOLD, COUGH/SUCTION AND TSP HEAD TURN LEFT WITH SAME STRATEGIES NOTED ABOVE (BETTER). NO ASPIRATION BUT HIGH RISK FOR SIGNIFICANT ASPIRATION. WITH MOST CONSISTENCIES GIVEN: THIN TSP, NTL TSP/CUP (WORSE), NTL TSP HEAD RIGHT THEN TSP HEAD LEFT HE HAD TRACE, AUDIBLE, AND INCONSISTENT DEEP LARYNGEAL PENETRATION (LP) TO THE LEVEL OF THE VOCAL FOLDS WITH INCONSISTENT EJECTION MOSTLY AFTER THE SWALLOW DUE TO PHARYNGEAL DYSMOTILITY AND WEAKNESS (REDUCED BASE OF TONGUE RETRACTION, HYOLARYNGEAL EXCURSION; AND PHARYNGEAL STRIPPING WAVE). ALSO HAD TRACE LP ABOVE VOCAL FOLDS WITH VARIABLE EFFECTIVE EJECTION ALSO NOTED BEFORE THE SWALLOW DUE TO DELAYED/WEAK SWALLOW, AND LATE/INCOMPLETE CLOSURE OF LARYNGEAL VESTIBULE. THROUGHOUT THE STUDY, HE REQUIRED ORAL SUCTION ASSIST TO CLEAR AT LEAST THE MILD PHARYNGEAL MORE THAN ORAL RESIDUE AND NEEDED TO REST DUE TO SOB. HIGH RISK FOR CHRONIC TRACE ASPIRATION/PENETRATION AND REDUCED SWALLOW EFFICIENCY DUE TO THE FOLLOWING COMPONENTS: Oral PREP AND ORAL Impairment Lip Closure Tongue Control Bolus transport/lingual motion Oral residue Initiation pharyngeal swallow Pharyngeal Impairment Soft palate elevation Laryngeal elevation (LE) Ant. hyoid excursion Epiglottic movement Late and incomplete laryngeal vestibule closure Pharyngeal stripping wave Pharyngeal segment opening Tongue base retraction Pharyngeal residue Decreased pharyngeal sensation ESOPHAGEAL PHASE IS GROSSLY FUNCTIONAL IN LATERAL VIEW. TRIAL TX: SOME BENEFIT FROM HEAD TURN LEFT (BETTER THAN RIGHT) WHICH CLEARS PYRIFORM SINUSES BETTER THAN VALLECULAE, MULTIPLE HARD SWALLOWS 3-4 WITH TSP MORE NEEDED WITH SIP CUP, CHIN NEUTRAL (COULD NOT COMPLETE ADEQUATE CHIN TUCK AND SPONTANEOUSLY TENDS TO KEEP CHIN SLIGHTLY UP ? FOR BREATHING ISSUES), REST IF SOB (RESP RATE GOES UP), EFFORTFUL BREATH HOLD AND COUGH SPITS UP RESIDUE (VALLECULAE MOSTLY) OR NEEDS ASSIST WITH SUCTION. RECOMMENDATIONS: CONTINUE WITH NONORAL PEG FEEDINGS AND ORAL CARE/SUCTION PRN. LIMITED AND APPARENT SAFEST PO TRIALS WITH AMMUNITION ASSEMBLY II LABORER ONLY AT 1/2 TSP LEVEL DURING DYSPHAGIA THERAPY SESSIONS WITH NECTAR THICK WATER ONLY USING HEAD TURNED LEFT, CHIN NEUTRAL TO TUCKED, HARD 3-4 SWALLOWS, EFFORTFUL BREATH HOLD (IF RESP RATE NOT ABOVE 25 BPM), COUGH SPIT/RE-SWALLOW. HIGHLY RECOMMEND THAT THE PATIENT ONLY BE CLEARED FOR PO AT A MEAL LEVEL AFTER A REPEAT MODIFIED BARIUM SWALLOW STUDY IS COMPLETED IN 2-4 WEEKS OR MORE AN OUTPATIENT DUE TO HIS HIGH RISK FOR SIGNIFICANT ASPIRATION AND RECURRENT ASPIRATION PNEUMONIA.
--- NOTE | 2019-08-01 15:44 | NUR ---
DISCHARGE SPEECH THERAPY SUMMARY: PATIENT SEEN FOR DYSPHAGIA, SEE SWALLOW EVALUATION REPORT. CUURENTLY HE IS ONLY GETTING PEG FEEDINGS AND ORAL CARE. GOALS MET FOR NEW STAFF EDUCATED/TRAINED IN POSTED ORAL CARE NEEDS AND ASPIRATION PRECAUTIONS WHEN THE PEG FEEDING IS RUNNING. GOALS NOT MET FOR PO INTAKE DUE TO THE PATIENT WAS EITHER NOT ALERT, NOT READY OR THERE WERE SCHEDULING ISSUES FOR MODIFIED BARIUM SWALLOW STUDY RECOMMENDED PRIOR TO PO INTAKE GIVEN H/O DYSPHAGIA AND HIGH SILENT ASPIRATION RISK. PER RNNEELAM, THE PATIENT IS READY FOR STUDY NOW. DR GUEVARA GAVE A TELEPHONE ORDER FOR STUDY TODAY. PLAN: SEE MOD BARIUM SWALLOW STUDY REPORT AND RECOMMENDATIONS CONTINUE WITH ORAL CARE AND PEG FEEDINGS WITH ASP PRECAUTIONS WHEN TF RUNNING. F/UP WITH DIGESTER OPERATOR HELPER AT SNF FOR SKILLED DYSPHAGIA MANAGEMENT AND TX
[2019-08-01 16:00] VITALS: BP 105/43
--- NOTE | 2019-08-01 16:24 | NUR ---
NURSE NOTES: Discharge order in, spoke to and daughters regarding discharge. they are all in concurrence that he should be discharged. Report given to Missy
[2019-08-01] MEDS ORDERED: PROSCAR5 MG ORAL (16:54)
[2019-08-01] MEDS ORDERED: PROTONIX40 MG ORAL (16:55)
[2019-08-01] MEDS ORDERED: METOPROLOL TART25 MG ORAL (16:58)
[2019-08-01] MEDS ORDERED: SENNO8.6 MG ORAL (16:58)
[2019-08-01] MEDS ORDERED: AMIODARONE HCL200 MG ORAL (16:59)
[2019-08-01] MEDS ORDERED: COLACE100 MG GT (17:02)
[2019-08-01] MEDS ORDERED: URECHOLINE25 M1 ORAL (17:02)
[2019-08-01] MEDS ORDERED: ELIQUIS2.5 MG PO (17:03)
--- NOTE | 2019-08-01 18:20 | Internal Med Progress Note ---
Subjective Date of Service: Aug 01, 2019 Physician Name Shukri Glover Attending Physician Rayshawn Woods MD Allergies: Coded Allergies: PENICILLINS (Verified Allergy, Unknown, 07/04/19) ROS Limited/Unobtainable: Yes Subjective 83 YO M admitted with dyspnea, now respiratory failure. Cover for Int Med-Dr Woods. Extubated 07/11/19. S/P cystoscopy/left ureteroscopy/stent/right ESWL 07/24/19. S/P Pacemaker implantation on Monday07/26/19. Objective Last Vital Signs Date Time Temp Pulse Resp B/P (MAP) Pulse Ox O2 Delivery O2 Flow Rate FiO2 08/01/19 16:26 65 08/01/19 16:00 96.1 17 105/43 (63) 93 08/01/19 08:09 Room Air 2.0 Nasal Cannula 07/31/19 20:29 28 Laboratory Tests Test 08/01/19 05:19 White Blood Count 6.3 K/UL (4.8-10.8) Red Blood Count 3.09 M/UL (4.70-6.10) L Hemoglobin 8.5 G/DL (14.2-18.0) L Hematocrit 26.3 % (42.0-52.0) L Mean Corpuscular Volume 85 FL (80-99) Mean Corpuscular Hemoglobin 27.5 PG (27.0-31.0) Mean Corpuscular Hemoglobin Concent 32.3 G/DL (32.0-36.0) Red Cell Distribution Width 15.5 % (11.6-14.8) H Platelet Count 186 K/UL (150-450) Mean Platelet Volume 6.9 FL (6.5-10.1) Neutrophils (%) (Auto) 69.8 % (45.0-75.0) Lymphocytes (%) (Auto) 17.1 % (20.0-45.0) L Monocytes (%) (Auto) 6.4 % (1.0-10.0) Eosinophils (%) (Auto) 6.3 % (0.0-3.0) H Basophils (%) (Auto) 0.3 % (0.0-2.0) Sodium Level 139 MMOL/L (136-145) Potassium Level 4.6 MMOL/L (3.5-5.1) Chloride Level 103 MMOL/L (98-107) Carbon Dioxide Level 29 MMOL/L (21-32) Anion Gap 8 mmol/L (5-15) Blood Urea Nitrogen 23 mg/dL (7-18) H Creatinine 0.8 MG/DL (0.55-1.30) Estimat Glomerular Filtration Rate > 60 mL/min (>60) Glucose Level 112 MG/DL (74-106) H Calcium Level 8.6 MG/DL (8.5-10.1) Intake and Output 07/31/19 08/01/19 19:00 07:00 Intake Total 375 ml Output Total 1100 ml 401 ml Balance -725 ml -401 ml IV Total 375 ml Output Urine Total 1100 ml 400 ml Stool Total 1 ml Objective PHYSICAL EXAMINATION: GENERAL: The patient is a well-developed and well-nourished male, in moderate respiratory distress. HEENT: Eyes, pupils are equal and responsive to light and accommodation. Extraocular movements are intact. NECK: Supple without lymphadenopathy. CHEST: nasal canula; Coarse breath sounds bilaterally with expiratory wheezes. Otherwise, without crackles. ABDOMINAL: Soft, nontender, and nondistended. Positive bowel sounds. No evidence of hepatosplenomegaly. Currently, no rebound or guarding noted. CARDIOVASCULAR: Tachycardic. Regular rhythm. S1 and S2 are normal without murmurs, rubs, or gallops. GENITOURINARY: Deferred. NEUROLOGICAL: Cranial nerves II to XII are grossly intact without focal deficits. EXTREMITIES: Negative for clubbing, cyanosis, or edema. Assessment/Plan Assessment/Plan ASSESSMENT: This is an 83-year-old male. 1. Dyspnea. 2. Respiratory distress. 3. Diabetes type 2. 4. Parkinson disease. 5. Hypercholesterolemia. 6. Dilated cardiomyopathy. 7. Dysphagia. 8. Benign prostatic hypertrophy. 9. 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 NSTEMI TREATMENT: 1. Dyspnea/respiratory distress. A Pulmonary consultation has been obtained with Dr. Kathryn Lopez. The patient is currently extubated. ABX=Ceftriaxone. We will follow recommendations of Pulmonary. 2. Diabetes type 2. 3. Hypercholesterolemia. 4. Dilated cardiomyopathy. 5. Dysphagia. The patient is status post PEG placement. 6. Hypertensive heart disease. 7. Benign prostatic hypertrophy. Failed voiding trial 8. ID=DR. Page 9. Urology = Dr. Callejas; S/P for cystoscopy/left ureteroscopy/stent/right ESWL 07/24/19 10. cardiology = Dr Santos 11. S/P Pacemaker implantation on Mon07/26/19 12. Discharge planning: [facility] today Shukri Glover MD Aug 01, 2019 18:20
--- NOTE | 2019-08-01 18:24 | NUR ---
NURSE NOTES: Cold Roll Catcher here to pick and shovel man the pt, IV removed and ID band, pt was Ox2 which is base line, Juan stayed in place.
--- NOTE | 2019-08-05 08:50 | Discharge Summary ---
Discharge Summary Discharge Summary _ DATE OF ADMISSION: 07/04/2019 DATE OF DISCHARGE: 08/01/2019 DISCHARGED BY: Dr. Aguilera REASON FOR ADMISSION: 83 years old male, resident of halfway facility, with past medical history of hypertension, diabetes mellitus, Parkinson disease, dysphagia, feeding by G-tube, was sent for evaluation due to respiratory distress. Upon evaluation patient was tachycardic , tachypneic , hypotensive, and hypoxic. After initial evaluation in the emergency department patient was diagnosed with sepsis , urinary tract infection , acute hypoxic respiratory failure, anemia acute kidney injury. Septic work-up initiated. Patient was admitted for further management. CONSULTANTS: production material coordinator Dr. Pacheco pulmonary Dr. Lopez ID specialist Dr. Ely GI specialist Dr. Small tool polishing machine operator Dr. Mohr urology [facility] COURSE: Patient admitted and started on the IV fluids and empiric antibiotics. Hemodynamic and status was closely monitored. CODE BLUE was called the next day , 07/05 due to bradycardic arrest. Patient required emergency oral intubation and was transferred to ICU for further management. Ventilator support and pulmonary toilet provided. Patient was followed -up with ABG and chest x-ray. Patient was continue on IV antibiotics. Patient noted to have elevated troponin . According to our production material coordinator, elevated troponin was possibly due to cardiac arrest . Venous duplex bilateral lower extremity revealed no evidence of acute DVT. VQ scan revealed low probability of PE. Patient started on stress dose of the steroids. Patient initially was hypotensive. Hemodynamic status was closely monitored . Blood pressure responded to fluid resuscitation. Patient had underlying first-degree AV block and complete right bundle-branch block. Patient was off any AV blocking agents as per production material coordinator. Echocardiogram revealed preserved ejection fraction of 60% and right ventricular systolic pressure of 32. Renal parameters and electrolytes were closely monitored, electrolytes corrected as needed , and nephrotoxins were avoided. Renal ultrasound revealed moderate left hydronephrosis. Strict aspiration precaution were maintained. G-tube feeding continued. Blood sugar was managed with sliding scale of insulin. Patient was able to be successfully extubated on 07/11. Supplemental oxygen provided and titrated to keep pulse oximetry above 92%. Pulmonary toilet with bronchodilator via HHN provided. CT scan of the abdomen and pelvis revealed moderate left hydroureteronephrosis secondary to 1.5 cm left mid to distal ureter stone. Multiply nonobstructing stones within the right kidney. Thickening of the wall of the urinary bladder consistent with cystitis. Juan catheter in good position. 10 x 7 cm left inguinal hernia containing bowel. No evidence of obstruction. Arteriovascular disease. Anasarca. Bilateral posterior basal atelectasis. Trace left pleural effusion. Cardiomegaly. Degenerative changes of the spine. Patient undergone on cystoscopy with left ureteroscopy, retrograde pyelogram, laser lithotripsy, stone extraction, stent placement, and right shockwave lithotripsy. Patient tolerated procedure well. Patient failed voiding trial . Juan catheter was replaced on 07/30. Urologist recommended hand irrigation as needed. Flomax and Proscar continued. Urecholine was added to regimen. Patient undergone on 07/26 dual-chamber permanent pacemaker implantation due to bradycardic arrest . pacemaker was programmed to DDD lower rate of 60 and upper rate of 120. Patient tolerated procedure well. Antibiotic treatment completed , which was provided as per ID specialist recommendation. No fever , no leukocytosis . Gram-positive bacteremia was likely contaminant. Last chest x-ray was stable. Supplemental oxygen further titrated. Pulse oximetry was stable on oxygen 2 L via nasal cannula prior to discharge. Supportive care provided. Pain management was addressed as needed. Bowel regimen instituted. Renal parameters and electrolytes were closely monitored, electrolytes corrected as needed , and nephrotoxic's were avoided . Patient clinically stabilized and was ready for transfer back to halfway facility for continuation of care. FINAL DIAGNOSIS Shock Status post bradycardic arrest with successful resuscitation Acute hypoxemic respiratory failure requiring intubation, post extubation 07/11 Elevated troponin/NSTEMI likely due to cardiac arrest Status post 07/26 dual-chamber permanent pacemaker implantation Sepsis Probable UTI Aspiration pneumonia versus pneumonitis Left hydronephrosis with obstructive uropathy Status post cystoscopy with left ureteroscopy, retrograde pyelogram, laser lithotripsy, stone extraction, stent placement, and right shockwave lithotripsy 07/24 Acute kidney injury - resolved Dehydration Hyponatremia-resolved Dysphagia , feeding by G-tube Diabetes mellitus Parkinson disease Anemia DISCHARGE MEDICATIONS See Medication Reconciliation list. DISCHARGE INSTRUCTIONS: Patient was discharged to the halfway facility. Follow up with medical doctor at the facility. Valerie Balderrama NP Aug 05, 2019 08:50
--- NOTE | 2019-08-23 17:05 | Diagnostic Imaging Report ---
Indications: Reason For Exam: DYSPHAGIA Technique: Patient ingested multiple substances under the supervision of speech pathology. Video fluoroscopic recording performed. Total fluoroscopy time 205 seconds. Total dose area product [id number] mGycm2 Total number of images-7 Comparison: none Findings: There is penetration of thin liquid barium. There is early pooling of thin liquid barium. There is delayed initiation of deglutition. There is also penetration of nectar thick liquid barium. No definite aspiration. There is residual pooling after swallowing. Impression: Positive for penetration of thin liquid barium. No lisseth aspiration demonstrated.
--- NOTE | 2019-08-27 09:53 | Diagnostic Imaging Report ---
Indication: Dyspnea Comparison: 07/09/2019 A single view chest radiograph was obtained. Findings: There is evidence of a small left pleural effusion. There is also evidence of retrocardiac infiltrate versus atelectasis. The heart is mildly enlarged. Right chest port and endotracheal tubes appear stable. Small right pleural effusion is also suspected. IMPRESSION: Bilateral pleural effusions. Left basilar pneumonia versus atelectasis. No change
== END 2019-08-01 18:13 | DRG 853 ==
LOC: EDBD 00:45 → EMR 01:13 → 2W 01:39 → EDBEDREQ 02:04 → 2E 07-05 06:50 → ICU 07-05 10:50 → 2W 07-13 01:15 → 2E 07-19 05:45
PROC: 05HM33Z Insertion of Infusion Device into Right Internal Jugular Vein, Percutaneous Approach (ICD-10-PCS; principal; 2019-07-05)
PROC: 0BH17EZ Insertion of Endotracheal Airway into Trachea, Via Natural or Artificial Opening (ICD-10-PCS; principal; 2019-07-05)
PROC: 5A1955Z Respiratory Ventilation, Greater than 96 Consecutive Hours (ICD-10-PCS; principal; 2019-07-05)
PROC: 0T778DZ Dilation of Left Ureter with Intraluminal Device, Via Natural or Artificial Opening Endoscopic (ICD-10-PCS; 2019-07-24)
PROC: 0TC78ZZ Extirpation of Matter from Left Ureter, Via Natural or Artificial Opening Endoscopic (ICD-10-PCS; 2019-07-24)
PROC: BT1FZZZ Fluoroscopy of Left Kidney, Ureter and Bladder (ICD-10-PCS; 2019-07-24)
PROC: 0TCB8ZZ Extirpation of Matter from Bladder, Via Natural or Artificial Opening Endoscopic (ICD-10-PCS; 2019-07-24)
PROC: 02H63JZ Insertion of Pacemaker Lead into Right Atrium, Percutaneous Approach (ICD-10-PCS; 2019-07-26)
PROC: 0JH606Z Insertion of Pacemaker, Dual Chamber into Chest Subcutaneous Tissue and Fascia, Open Approach (ICD-10-PCS; 2019-07-26)
PROC: 02HK3JZ Insertion of Pacemaker Lead into Right Ventricle, Percutaneous Approach (ICD-10-PCS; 2019-07-26)
DX: A41.9 Sepsis, unspecified organism (principal); J96.01 Acute respiratory failure with hypoxia; R65.21 Severe sepsis with septic shock; I21.4 Non-ST elevation (NSTEMI) myocardial infarction; I46.9 Cardiac arrest, cause unspecified; J69.0 Pneumonitis due to inhalation of food and vomit; N17.9 Acute kidney failure, unspecified; E87.1 Hypo-osmolality and hyponatremia; I42.0 Dilated cardiomyopathy; N13.2 Hydronephrosis with renal and ureteral calculous obstruction; R71.0 Precipitous drop in hematocrit; E78.00 Pure hypercholesterolemia, unspecified; E86.0 Dehydration; G20 Parkinson's disease; E11.9 Type 2 diabetes mellitus without complications; R13.10 Dysphagia, unspecified; I11.0 Hypertensive heart disease with heart failure; I50.9 Heart failure, unspecified; N40.1 Benign prostatic hyperplasia with lower urinary tract symptoms; R33.8 Other retention of urine; Z93.1 Gastrostomy status; Z74.01 Bed confinement status; I48.91 Unspecified atrial fibrillation; I45.10 Unspecified right bundle-branch block; K40.90 Unilateral inguinal hernia, without obstruction or gangrene, not specified as recurrent
CPT/HCPCS: 36415; 36600; 71045; 74018; 74176; 74230; 76000; 76770; 78579; 78580; 80048; 80053; 80061; 80076; 80202; 81001; 81003; 82043; 82270; 82378; 82550; 82553; 82607; 82728; 82746; 82803; 82962; 82977; 83036; 83540; 83550; 83605; 83615; 83735; 83880; 83935; 84100; 84300; 84443; 84484; 84550; 85007; 85025; 85044; 85060; 85379; 85610; 85651; 85730; 86140; 86710; 87040; 87070; 87081; 87086; 87205; 89050; 92950; 93005; 93306; 93970; 94002; 94003; 94150; 94640; 94660; 94664; 96365; 96368; 99291; A9503; J0171; J1815; J7030; J7620; J8499